=== PATIENT | male | born 1970 | race Caucasian/White ===

== ENCOUNTER 2017-01-20 09:12 | Day surgery (SDC) | payer OTHER ==
[2017-01-20 09:51] VITALS: BMI 35.6
[2017-01-20] MEDS ORDERED: PROPOFOL 20 ML ONE ×2 (10:44)
[2017-01-20] MEDS ORDERED: LIDOCAINE HCL/PF 1% SDV 5ML VIAL ONE (10:44)
[2017-01-20 11:30] VITALS: TEMP 98
[2017-01-20 12:12] VITALS: BP 129/82; PULSE 83
--- NOTE | 2017-01-21 13:32 | PATH ---
Surgical Pathology Report Patient Name: RYDER HERNANDES [facility]. Rec. #: [id number] /Age/Gender: 1970 (Age: 46) / M Account: [id number] Location: [facility]-ENDOSCOPY Taken: 01/20/2017 Received: 01/20/2017 Reported: 01/21/2017 Physicians: Leighton Galindo M.D. Specimen(s) Received A: BX DUODENUM B: BX ANTRUM C: BX BODY Clinical History Persistent GERD despite medications Erythema body and antrum, subepithelial hemorrhages Final Diagnosis A. DUODENUM, BIOPSY: DUODENAL MUCOSA WITH CHRONIC INFLAMMATION. NO HISTOLOGIC EVIDENCE OF GLUTEN SENSITIVE ENTEROPATHY (CELIAC DISEASE). B. STOMACH, ANTRUM, BIOPSY: GASTRIC OXYNTIC MUCOSA WITH FOCALLY ACTIVE MARKED CHRONIC GASTRITIS. IMMUNOSTAINS H. PYLORI IS NEGATIVE FOR ORGANISMS. SEPARATE FRAGMENT OF DUODENAL MUCOSA WITH MILD CHRONIC INFLAMMATION; NO HISTOLOGIC EVIDENCE OF GLUTEN SENSITIVE ENTEROPATHY (CELIAC DISEASE). C. STOMACH, BODY, BIOPSY: GASTRIC OXYNTIC MUCOSA WITH FOCALLY ACTIVE MARKED CHRONIC GASTRITIS. IMMUNOSTAIN FOR H. PYLORI IS NEGATIVE FOR ORGANISMS. Electronically Signed Jay Martin M.D. Gross Description A. Received in formalin, labeled "biopsy duodenum" is a haines, irregular portion of soft tissue measuring 0.5 cm in greatest dimension. The specimen is submitted in toto in one cassette. B. Received in formalin, labeled "biopsy antrum" are 3 haines, irregular portions of soft tissue ranging from 0.2-0.4 cm in greatest dimension. The specimens are submitted in toto in one cassette. C. Received in formalin, labeled "biopsy body" are 2 haines, irregular portions of soft tissue measuring 0.3 and 0.4 cm in greatest dimension. The specimens are submitted in toto in one cassette. /01/20/201701/20/2017
== END 2017-01-20 12:30 | disposition home or self-care (01) ==
LOC: JASU-ENDO 09:12
PROVIDERS: ATTEND Internal Medicine Gastroenterology
PROC: 0DB68ZX Excision of Stomach, Via Natural or Artificial Opening Endoscopic, Diagnostic (ICD-10-PCS; 2017-01-20)
PROC: 0DB98ZX Excision of Duodenum, Via Natural or Artificial Opening Endoscopic, Diagnostic (ICD-10-PCS; principal; 2017-01-20 10:00)
DX: K21.9 Gastro-esophageal reflux disease without esophagitis (principal); K29.80 Duodenitis without bleeding; K29.50 Unspecified chronic gastritis without bleeding
CPT/HCPCS: 88305-TC; 88342-TC

== ENCOUNTER 2017-01-27 08:00 | Day surgery (SDC) | payer OTHER ==
[2017-01-26 14:24] VITALS: BMI 33.9
[2017-01-27] MEDS ORDERED: PROPOFOL 20 ML ONE ×2 (08:25)
[2017-01-27 10:01] VITALS: TEMP 98
[2017-01-27 11:24] VITALS: BP 132/88; PULSE 84
--- NOTE | 2017-01-28 14:52 | PATH ---
Surgical Pathology Report Patient Name: RYDER HERNANDES [facility]. Rec. #: [id number] /Age/Gender: 1970 (Age: 46) / M Account: [id number] Location: [facility]-ENDOSCOPY Taken: 01/27/2017 Received: 01/27/2017 Reported: 01/28/2017 Physicians: Leighton Galindo M.D. Specimen(s) Received BX RECTAL POLYP Clinical History Abdominal pain, constipation Rectal polyps Final Diagnosis RECTUM, BIOPSY: HYPERPLASTIC POLYP WITH FOCAL ULCERATION. Electronically Signed Casimiro Ruby M.D. Gross Description Received in formalin, labeled "biopsy rectal polyp" is a haines, irregular portion of soft tissue measuring 0.4 cm. in greatest dimension. The specimen is submitted in toto in one cassette. 01/27/201701/27/2017
== END 2017-01-27 11:24 | disposition home or self-care (01) ==
LOC: JASU-ENDO 08:00
PROVIDERS: ATTEND Internal Medicine Gastroenterology
PROC: 0DBP8ZX Excision of Rectum, Via Natural or Artificial Opening Endoscopic, Diagnostic (ICD-10-PCS; principal; 2017-01-27 09:00)
DX: K62.1 Rectal polyp (principal); K63.89 Other specified diseases of intestine
CPT/HCPCS: 88305-TC

== ENCOUNTER 2017-05-09 18:17 | Inpatient (IN) | payer OTHER ==
[2017-05-09] MEDS ORDERED: PIPERACILLIN/TAZOB 4.5 GM 4.5 GM in DEXTROSE 5%-WATER - 100 ML IVPB ONE (19:09)
--- NOTE | 2017-05-09 19:31 | PDOC ---
History of Present Illness - General History Source: Patient Exam Limitations: No Limitations <Linda Bailey - Last Filed: 05/09/17 23:57> - General History Source: Patient, Old Records Exam Limitations: No Limitations - History of Present Illness Initial Comments: 05/09/17 19:32 The patient is a 47 year old male with past medical history of hypertension and IDDM who presents to the ED with complaints of worsening right heel wound infection for the past three weeks. The patient states he noticed the wound after driving home from work and went to his PCP in which he was prescribed clindamyacin and cipro which did not help. Over the past week, the patient noticed the wound draining, becoming more swollen, and his right leg is becoming swollen. Yesterday he began developing a fever and noted it to be about 102 this afternoon. Right wound on heel, clind and cipro for about 3 weeks by PCP, fever yesterday, 3:00 today at 102. The patient denies any nausea, vomiting, diarrhea. He denies any cough, shortness of breath or chest pain. He denies any urinary symptoms. Allergies: None Surgical History: Herniated disc surgery Photo Intern: Mk Dean <Ximena Joyce - Last Filed: 05/10/17 00:21> - General Chief Complaint: Wound Stated Complaint: SWOLLEN RT FOOT Time Seen by Provider: 05/09/17 18:46 Past History - Past Medical History Anemia: No Asthma: No Cancer: No Cardiac Disorders: No CVA: No COPD: No CHF: No Dementia: No Diabetes: Yes (INSULIN PUMP) GI Disorders: Yes (GERD) Disorders: Yes (BPH) HTN: Yes Hypercholesterolemia: No Liver Disease: No Seizures: No Thyroid Disease: No - Surgical History Abdominal Surgery: No Appendectomy: No Cardiac Surgery: No Cholecystectomy: No Lung Surgery: No Neurologic Surgery: Yes (LOWER BACK FOR HERNIATED DISC) Orthopedic Surgery: No - Immunization History Td Vaccination: Yes TDAP Vaccination: Yes Immunization Up to Date: Yes - Psycho/Social/Smoking Cessation Hx Anxiety: No Suicidal Ideation: No Smoking Status: No Smoking History: Never smoked Have you smoked in the past 12 months: No Number of Cigarettes Smoked Daily: 2 If you are a former smoker, when did you quit?: 14 yrs ago Hx Alcohol Use: No Drug/Substance Use Hx: No Substance Use Type: None Hx Substance Use Treatment: No <Linda Bailey - Last Filed: 05/09/17 23:57> <AngelclaireXimena - Last Filed: 05/10/17 00:21> - Past Medical History Allergies/Adverse Reactions: Allergies Allergy/AdvReac Type Severity Reaction Status Date / Time No Known Allergies Allergy Verified 05/09/17 18:19 Home Medications: Ambulatory Orders Insulin Pump Cartridge [Cartridge] 1 each SCJ ASDIR 03/30/13 Folic Acid 1 mg PO HS 08/20/16 Linaclotide [Linzess] 145 mcg PO DAILY 01/26/17 Losartan/Hydrochlorothiazide [Losartan-Hctz 100-12.5 mg Tab] 1 each PO DAILY ASA - 81 mg PO DAILY 05/04/17 Amlodipine Besylate 10 mg PO DAILY 05/04/17 Ciprofloxacin 500 mg PO DAILY 05/04/17 Clindamycin 300 mg PO DAILY 05/04/17 Dulaglutide [Trulicity] 0.75 mg SQ WEEKLY 05/09/17 Review of Systems - Review of Systems Able to Perform ROS?: Yes Comments:: 05/09/17 19:32 GENERAL/CONSTITUTIONAL: Present: fever, chills No weakness. HEAD, EYES, EARS, NOSE AND THROAT: No change in vision. No ear pain or discharge. No sore throat. CARDIOVASCULAR: No chest pain or shortness of breath. RESPIRATORY: No cough, wheezing, or hemoptysis. GASTROINTESTINAL: No nausea, vomiting, diarrhea or constipation. GENITOURINARY: No dysuria, frequency, or change in urination. MUSCULOSKELETAL: No joint or muscle swelling or pain. No neck or back pain. SKIN: Right heel wound infection, right heel pain. No rash NEUROLOGIC: No headache, vertigo, loss of consciousness, or change in strength/ sensation. ENDOCRINE: No increased thirst. No abnormal weight change. HEMATOLOGIC/LYMPHATIC: No anemia, easy bleeding, or history of blood clots. ALLERGIC/IMMUNOLOGIC: No hives or skin allergy. All Other Systems: Reviewed and Negative <Ximena Joyce - Last Filed: 05/10/17 00:21> *Physical Exam - Vital Signs Last Vital Signs Temp Pulse Resp BP Pulse Ox 99.6 F 126 H 20 108/62 97 05/09/17 18:20 05/09/17 18:20 05/09/17 18:20 05/09/17 18:20 05/09/17 18:20 <Linda Bailey - Last Filed: 05/09/17 23:57> - Vital Signs Last Vital Signs Temp Pulse Resp BP Pulse Ox 99.6 F 126 H 20 108/62 97 05/09/17 18:20 05/09/17 18:20 05/09/17 18:20 05/09/17 18:20 05/09/17 18:20 - Physical Exam Comments: 05/09/17 19:33 GENERAL: Awake, alert, and fully oriented, in no acute distress HEAD: No signs of trauma EYES: PERRLA, EOMI, sclera anicteric, conjunctiva clear ENT: Auricles normal inspection, hearing grossly normal, nares patent, oropharynx clear without exudates. Moist mucosa NECK: Normal ROM, supple, no lymphadenopathy, JVD, or masses LUNGS: Breath sounds equal, clear to auscultation bilaterally. No wheezes, and no crackles HEART: Regular rate and rhythm, normal S1 and S2, no murmurs, rubs or gallops ABDOMEN: Soft, nontender, normoactive bowel sounds. No guarding, no rebound. No masses EXTREMITIES: Right foot and leg swollen, edematous 2.5 x 2.5 punch ulcer under 3rd and 4th metatarsal heads on plantar surface, surrounding callous, no erythema, 2+ dp pulse, 6 x 5 cm deep ulcer with visualized muscle, with drainage. No bone visualized. No clubbing or cyanosis. NEUROLOGICAL: Cranial nerves II through XII grossly intact. Normal speech, normal gait SKIN: Warm, Dry, normal turgor, no rashes or lesions noted. <Ximena Joyce - Last Filed: 05/10/17 00:21> Heart Score/ECG Review #1 ECG reviewed & interpreted by me at: 22:18 General ECG Interpretation: Sinus Rhythm, Normal Rate, Normal Intervals, No acute ischemic changes <Linda Bailey - Last Filed: 05/09/17 23:57> ED Treatment Course - LABORATORY CBC & Chemistry Diagram: 05/09/17 19:30 05/09/17 20:51 - RADIOLOGY Radiology Studies Ordered: Category Date Time Status CHEST - PA [RAD] Stat Radiology 05/09/17 19:07 Ordered FOOT-RIGHT [RAD] Stat Radiology 05/09/17 19:07 Ordered <Linda Bailey - Last Filed: 05/09/17 23:57> - LABORATORY CBC & Chemistry Diagram: 05/09/17 19:30 05/09/17 20:51 <Ximena Joyce - Last Filed: 05/10/17 00:21> Medical Decision Making - Medical Decision Making 05/09/17 19:31 A portion of this note was documented by scribe services under my direction. I have reviewed the details of the note, within reason, and agree with the documentation with the following case summary and management plan written by me. Nursing documentation reviewed and incorporated into medical decision making 05/09/17 21:46 This patient is a 47-year-old male with a history of insulin-dependent diabetes complicated by peripheral neuropathy, hypertension, prior history of diabetic foot ulcers who presents to the emergency department with a complaint of worsening right heel ulcer. Patient states his symptoms began as a small heel ulcer for which he saw Dr. Dean. He has had persistent pain He was started on Clindamycin and Cipro which he has been taking for approximately 2 weeks He has noted no improvement in his wounds, no improvement in his pain Pt has noted drainage which has worsened He has noted right lower extremity swelling fever last night - 102 On examination: RLE edematous heel ulcer Ulcer plantar surface No surrounding erythema No erythema up the leg DD: Ulcer, osteomyelitis, ulcer Laboratory Tests 04/13/17 04/13/17 05/09/17 06:45 06:45 19:30 WBC 9.6 14.4 H D Hgb 12.2 11.1 L Hct 33.5 L Plt Count 253 319 D Chloride Carbon Dioxide Anion Gap BUN 37 H Creatinine 2.1 H Random Glucose 176 H 05/09/17 20:51 WBC Hgb Hct Plt Count Chloride 102 Carbon Dioxide 23 Anion Gap 11 BUN 37 H Creatinine 2.5 H Random Glucose 162 H 05/09/17 21:54 Given morphine for pain Case reviewed with Dr Marinelli Will admit to Dr Tovar's service Pending: RLE duplex 05/09/17 23:57 Duplex negative for DVT <Linda Bailey - Last Filed: 05/09/17 23:57> - Medical Decision Making 05/10/17 00:20 EXAM: Venous duplex unilateral, right lower extremity IMPRESSION: No DVT. SIGNED Juan Carlos Young MD <Ximena Joyce - Last Filed: 05/10/17 00:21> *DC/Admit/Observation/Transfer - Discharge Dispostion Admit: Yes <Linda Bailey - Last Filed: 05/09/17 23:57> - Attestations Scribe Attestion: 05/09/17 19:35 Documentation prepared by Ximena Joyce, acting as biomedical scientist for Linda Bailey MD. <Ximena Joyce - Last Filed: 05/10/17 00:21> Diagnosis at time of Disposition: Diabetic foot ulcer Qualifiers: Diabetic foot ulcer location: heel Diabetes mellitus type: type 1 Laterality: right Non-pressure ulcer stage: with fat layer exposed Qualified Code(s): E10.621 - Type 1 diabetes mellitus with foot ulcer - Discharge Dispostion Condition at time of disposition: Stable - Referrals
[2017-05-09] MEDS ORDERED: PIPERACILLIN/TAZOB 4.5 GM 100 ML IVPB ONE (19:38)
[2017-05-09] MEDS ORDERED: VANCOMYCIN 1 GRAM (PRE-DOCKED) 250 ML IVPB ONE (19:38)
[2017-05-09] MEDS ORDERED: morphine CARPU-JECT 4 MG/1 ML DISP.SYRIN ONE (19:40)
[2017-05-09] MEDS ORDERED: morphine CARPU-JECT 4 MG/1 ML DISP.SYRIN IVPUSH ONE (19:40)
[2017-05-09 19:45] LABS: BASOPHIL 0.4 % (0-2.0); MCH 27.4 pg (25.7-33.7); MCHC 33.1 g/dl (32.0-35.9); MEAN CELL VOLUME 82.8 fl (80-96); MEAN PLT VOLUME 8.9 fl (7.5-11.1); NEUTROPHILS 75.1 % (42.8-82.8); PLATELET COUNT 319 K/MM3 (134-434); RDW 12.5 % (11.9-15.9); WHITE BLOOD COUNT 14.4 K/mm3 (4.0-10.0)
[2017-05-09] MEDS ORDERED: VANCOMYCIN 1,500 MG in DEXTROSE 5%-WATER - 500 ML IVPB ONE (20:45)
[2017-05-09 21:27] LABS: ALBUMIN 2.7 g/dl (3.4-5.0); BILIRUBIN,TOTAL 0.4 mg/dL (0.2-1.0); CALCIUM 8.4 mg/dL (8.5-10.1); COCKROFT - GAULT 57.4; CREATININE 2.5 mg/dL (0.7-1.3); TOT PROT 7.7 g/dl (6.4-8.2)
[2017-05-09] MEDS ORDERED: oxyCODONE HCL 5 MG TABLET PO PRN (21:58)
[2017-05-09] MEDS ORDERED: DOCUSATE SODIUM 100 MG CAPSULE (FP) PO PRN (21:58)
[2017-05-09] MEDS ORDERED: HEPARIN NA (PORCINE) 5,000 UNITS/ML 1ML VIAL ONE (22:35)
[2017-05-09] MEDS ORDERED: INSULIN DETEMIR 100 UNITS/ML MDV SQ ONE (22:36)
[2017-05-09] MEDS: HEPARIN NA (PORCINE) 5,000 UNITS/ML 1ML VIAL SQ SCH (22:45)
[2017-05-09] MEDS: INSULIN SLIDING SCALE (NOVOLOG) 1 VIAL SQ SCH (22:48)
[2017-05-09] MEDS: INSULIN DETEMIR 100 UNITS/ML MDV SQ SCH (22:56)
[2017-05-09] MEDS ORDERED: ACETAMINOPHEN 325 MG TABLET (FP) ONE (23:27)
[2017-05-09] MEDS: ACETAMINOPHEN 325 MG TABLET (FP) PO PRN (23:40)
[2017-05-10 01:40] VITALS: BMI 35.3
[2017-05-10] MEDS: INSULIN SLIDING SCALE (NOVOLOG) 1 VIAL SQ SCH ×4 (06:42→22:09)
[2017-05-10] MEDS: LOSARTAN POTASSIUM 50 MG TABLET (FP) PO SCH (09:27)
[2017-05-10] MEDS: amLODIPine BESYLATE 10 MG TABLET (FP) PO SCH (09:27)
[2017-05-10] MEDS: HEPARIN NA (PORCINE) 5,000 UNITS/ML 1ML VIAL SQ SCH ×2 (09:27→22:03)
[2017-05-10] MEDS: ASPIRIN COATED 81 MG TABLET.EC PO SCH (09:27)
[2017-05-10] MEDS ORDERED: morphine CARPU-JECT 4 MG/1 ML DISP.SYRIN IVPUSH ONE (11:30)
--- NOTE | 2017-05-10 11:42 | HP ---
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 Cardiovascular: Yes: HTN Infectious Disease: Yes: Other Endocrine: Yes: Diabetes Mellitus - Smoking History Smoking history: Never smoked Have you smoked in the past 12 months: No Aproximately how many cigarettes per day: 2 If you are a former smoker, when did you quit?: 14 yrs ago - Alcohol/Substance Use Hx Alcohol Use: No History of Substance Use: reports: None - Social History ADL: Independent 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 History of Recent Travel: No Home Medications - Allergies Allergies/Adverse Reactions: Allergies Allergy/AdvReac Type Severity Reaction Status Date / Time No Known Allergies Allergy Verified 05/09/17 18:19 - Home Medications Home Medications: Ambulatory Orders Insulin Pump Cartridge [Cartridge] 1 each SCJ ASDIR 03/30/13 Folic Acid 1 mg PO HS 08/20/16 Linaclotide [Linzess] 145 mcg PO DAILY 01/26/17 Losartan/Hydrochlorothiazide [Losartan-Hctz 100-12.5 mg Tab] 1 each PO DAILY ASA - 81 mg PO DAILY 05/04/17 Amlodipine Besylate 10 mg PO DAILY 05/04/17 Ciprofloxacin 500 mg PO DAILY 05/04/17 Clindamycin 300 mg PO DAILY 05/04/17 Dulaglutide [Trulicity] 0.75 mg SQ WEEKLY 05/09/17 Review of Systems - Review of Systems Constitutional: reports: No Symptoms Eyes: reports: No Symptoms HENT: reports: No Symptoms Neck: reports: No Symptoms Cardiovascular: reports: No Symptoms Respiratory: reports: No Symptoms Gastrointestinal: reports: No Symptoms Genitourinary: reports: No Symptoms Musculoskeletal: reports: Joint Swelling Integumentary: reports: Blister, Erythema, Other Neurological: reports: Pre-Existing Deficit Endocrine: reports: No Symptoms Physical Examination Vital Signs: Vital Signs Temperature 98.2 F 05/10/17 09:38 Pulse Rate 74 05/10/17 09:38 Respiratory Rate 20 05/10/17 09:38 Blood Pressure 136/87 05/10/17 09:38 O2 Sat by Pulse Oximetry (%) 97 05/09/17 22:28 Findings/Remarks: C/O PAIN Constitutional: Yes: Mild Distress Eyes: Yes: WNL HENT: Yes: WNL Neck: Yes: WNL Cardiovascular: Yes: WNL Respiratory: Yes: WNL Gastrointestinal: Yes: WNL Renal/: Yes: WNL Musculoskeletal: Yes: Muscle Pain Extremities: Yes: Deformity Edema: No Peripheral Pulses WNL: Yes Integumentary: Yes: Pressure Ulcer, Skin Tear, Venous Stasis Changes Wound/Incision: Yes: Dressing Dry and Intact, Unapproximated Neurological: Yes: Pre-Existing Deficit ...Motor Strength: LLE, RLE Psychiatric: Yes: Other Problem List - Problems (1) Diabetic foot ulcer Code(s): E11.621 - TYPE 2 DIABETES MELLITUS WITH FOOT ULCER L97.509 - NON-PRESSURE CHRONIC ULCER OTH PRT UNSP FOOT W UNSP SEVERITY Qualifiers: Diabetic foot ulcer location: heel Diabetes mellitus type: type 1 Laterality: right Non-pressure ulcer stage: with fat layer exposed Qualified Code(s): E10.621 - Type 1 diabetes mellitus with foot ulcer; L97.411 - Non-pressure chronic ulcer of right heel and midfoot limited to breakdown of skin (2) Cellulitis of foot Code(s): L03.119 - CELLULITIS OF UNSPECIFIED PART OF LIMB (3) Diabetes Code(s): E11.9 - TYPE 2 DIABETES MELLITUS WITHOUT COMPLICATIONS Qualifiers: Diabetes mellitus type: type 2 Diabetes mellitus complication detail: with unspecified neuropathy Qualified Code(s): - (4) Diabetes mellitus, insulin dependent (IDDM), uncontrolled Code(s): E10.65 - TYPE 1 DIABETES MELLITUS WITH HYPERGLYCEMIA Qualifiers: Diabetes mellitus complication detail: with foot ulcer (5) Diabetic foot infection Code(s): E11.69 - TYPE 2 DIABETES MELLITUS WITH OTHER SPECIFIED COMPLICATION L08.9 - LOCAL INFECTION OF THE SKIN AND SUBCUTANEOUS TISSUE, UNSP (6) Foot ulcer Code(s): L97.509 - NON-PRESSURE CHRONIC ULCER OTH PRT UNSP FOOT W UNSP SEVERITY (7) Hypertension Code(s): I10 - ESSENTIAL (PRIMARY) HYPERTENSION Qualifiers: Hypertension type: essential hypertension Qualified Code(s): I10 - Essential (primary) hypertension (8) Renal insufficiency Code(s): N28.9 - DISORDER OF KIDNEY AND URETER, UNSPECIFIED Assessment/Plan IV ABX ID AND VASC EVAL PAIN CONTROL DVT PROPHYLAXIS SNF
--- NOTE | 2017-05-10 11:59 | PN ---
Progress Note (short form) - Note Progress Note: ID consult dictated 47 year old man with diabetes admitted with fever and worsening heel ulcer right foot ulcer started about three weeks ago saw his civil service worker (Dr Morales) and has been on cipro/clinda for last three weeks he noted on that the ulcer was draining and foulsmelling yesterday he developed fever to 102 at home, the leg became swollen, he noted painful inguinal adenopathy fever diabetic foot ulcer r/o osteomyelitis leanne/ckd foot MRI- r/o osteomyelitis received vancomycin and zosyn in ed will check vanco level in am and redose based on level continue zosyn podiatry/surgery consult for debridement Problem List - Problems (1) Diabetic infection of right foot Code(s): E11.69 - TYPE 2 DIABETES MELLITUS WITH OTHER SPECIFIED COMPLICATION L08.9 - LOCAL INFECTION OF THE SKIN AND SUBCUTANEOUS TISSUE, UNSP (2) Osteomyelitis Code(s): M86.9 - OSTEOMYELITIS, UNSPECIFIED (3) Renal insufficiency Code(s): N28.9 - DISORDER OF KIDNEY AND URETER, UNSPECIFIED
[2017-05-10] MEDS: PIPERACILLIN/TAZOB 3.375 GM/50 ML PRE-DOCKED IVPB SCH ×2 (14:02→18:53)
--- NOTE | 2017-05-10 15:16 | CONS ---
DATE OF CONSULTATION: DATE OF DICTATION: 05/10/2017 REFERRED BY: Daphnie Tovar MD This is a 47-year-old man with a 15-year history of diabetes. He is followed by Dr. Dean. Three weeks ago he developed an ulcer on the heel of his foot. He went to see his seater assembler, Dr. Morales. He was given collagenase to put on the wound and was started on Cipro and clindamycin, which he has been taking b.i.d. for the last 3 weeks. On , he noted that the ulcer was now malodorous and draining. He started having swelling of his right leg and painful inguinal adenopathy, all on the right side. Yesterday he had fever at home to 102. He did not have any rigors or chills, and he presented to the emergency room. He denies nausea, vomiting, diarrhea, dysuria. He has no chest pain or abdominal pain. He has no respiratory complaints. His past medical history is notable for a history of diabetes for 15 years. He has a history of hypertension. He has a history of BPH and GERD. He denies history of coronary artery disease. He has had lower back surgery for herniated disks. He has a history of osteomyelitis of the right 1st toe and was treated in 2015 with Rocephin for 6 weeks via PICC line. Family history is noncontributory. SOCIAL HISTORY: He is currently not working, and he lives in the community. There is no history of any recent travel. REVIEW OF SYSTEMS: As per HPI. He denies everything except painful inguinal adenopathy, swelling of his right leg, and fever yesterday, as well as draining ulcer. PHYSICAL EXAMINATION: Vital Signs: His temperature at home was 102. Here, his temperature was 99.6. Currently his temperature is 98.2, with a pulse of 74, blood pressure 136/87, respiratory rate is 20. Weight 260 pounds. HEENT: Normocephalic. His eyes are anicteric. Neck: Supple. Lungs: Clear to auscultation. Heart: Regular rate and rhythm. Abdomen: He has a large right painful inguinal node, very tender to touch Extremities: He has swelling of the right lower extremity. He has a malodorous ulcer on the right leg. There is drainage on the dressing but there is no drainage to culture. There is no surrounding erythema. He has another ulcer on the plantar aspect of his foot, which is very clean based. His laboratories are notable for BUN 37, creatinine 2.5. Hemoglobin A1c of 8.8, CRP is 9. His sedimentation rate is 108. His white count is 14.4. X-ray of the foot shows no signs of osteomyelitis. Chest x-ray is clear. Duplex of the leg is pending. In summary, this is a 47-year-old man with fever, infected diabetic foot ulcer, as well as possible osteomyelitis in the setting of acute kidney injury, probable CKD, and diabetes. Would obtain a foot MRI to rule out osteomyelitis. He received Zosyn and vancomycin in the emergency room. Will check a vancomycin level and re-dose based on the level. Continue Zosyn, adjusted for his renal insufficiency. Would recommend podiatry or surgery consultation for debridement. Further recommendations to follow. AVIS VAIL M.D. [id number]
--- NOTE | 2017-05-10 15:35 | EKG ---
Test Reason : Blood Pressure : / mmHG Vent. Rate : 098 BPM Atrial Rate : 098 BPM P-R Int : 188 ms QRS Dur : 074 ms QT Int : 320 ms P-R-T Axes : 029 007 018 degrees QTc Int : 408 ms NORMAL SINUS RHYTHM NORMAL ECG WHEN COMPARED WITH ECG OF 09-MAY-2015 20:06, NO SIGNIFICANT CHANGE WAS FOUND Confirmed by DENNIS GALVIN MD ([id number]) on 05/10/2017 3:34:37 PM Referred By: Confirmed By:DENNIS GALVIN MD
[2017-05-10] MEDS: ACETAMINOPHEN 325 MG TABLET (FP) PO PRN (16:43)
--- NOTE | 2017-05-10 18:26 | CONSULT ---
Consult Consult Specialty:: Nephrology Reason for Consultation:: DEYSI - History of Present Illness Chief Complaint: worsening right heel wound infection History of Present Illness: Pt is a 47 year old male with pmhx of DM and HTN who presents to the ER complaining of worsening of his right heel wound infections. He says that he felt is has been getting worse over the last few weeks. He was given antibiotics as outpt however they did not help. He too ciprofloxacin and clindamycin. He did have fever and complains of right leg edema. He was found to have elevated creatinine in the ER and I was called to evaluate him. He denies history of CKD. He does however have abnormal creatinine values on prior labs in the system. He denies dysuria or hematuria. He denies nsaid use. He denies shortness of breath. 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 History of Recent Travel: No Home Medications - Allergies Allergies/Adverse Reactions: Allergies Allergy/AdvReac Type Severity Reaction Status Date / Time No Known Allergies Allergy Verified 05/09/17 18:19 - Home Medications Home Medications: Ambulatory Orders Insulin Pump Cartridge [Cartridge] 1 each CTJ ASDIR 03/30/13 Folic Acid 1 mg PO HS 08/20/16 Linaclotide [Linzess] 145 mcg PO DAILY 01/26/17 Losartan/Hydrochlorothiazide [Losartan-Hctz 100-12.5 mg Tab] 1 each PO DAILY ASA - 81 mg PO DAILY 05/04/17 Amlodipine Besylate 10 mg PO DAILY 05/04/17 Ciprofloxacin 500 mg PO DAILY 05/04/17 Clindamycin 300 mg PO DAILY 05/04/17 Dulaglutide [Trulicity] 0.75 mg SQ WEEKLY 05/09/17 Family Disease History - Family Disease History Family History: Denies Review of Systems - Review of Systems Constitutional: reports: Fever, Malaise Eyes: reports: No Symptoms HENT: reports: No Symptoms Neck: reports: No Symptoms Cardiovascular: reports: No Symptoms Respiratory: reports: No Symptoms Gastrointestinal: reports: No Symptoms Genitourinary: reports: No Symptoms Musculoskeletal: reports: Other (right leg and foot pain) Neurological: reports: No Symptoms Endocrine: reports: No Symptoms Hematology/Lymphatic: reports: No Symptoms Psychiatric: reports: No Symptoms Physical Exam Vital Signs: Vital Signs Temperature 98.2 F 05/10/17 15:16 Pulse Rate 96 H 05/10/17 15:16 Respiratory Rate 20 05/10/17 15:16 Blood Pressure 143/91 05/10/17 15:16 O2 Sat by Pulse Oximetry (%) 97 05/09/17 22:28 Constitutional: Yes: Calm Eyes: Yes: Conjunctiva Clear HENT: Yes: Atraumatic Cardiovascular: Yes: S1, S2 Respiratory: Yes: CTA Bilaterally Gastrointestinal: Yes: Soft Renal/: Yes: WNL. No: CVA Tenderness - Left, CVA Tenderness - Right Extremities: Yes: Other (right foot heel ulcer) Edema: Yes Edema: RLE: 1+ Wound/Incision: Yes: Dressing Dry and Intact Neurological: Yes: Oriented Psychiatric: Yes: Oriented Labs: Laboratory Tests 12/11/15 01/28/16 02/08/16 11:50 07:20 06:35 WBC Hgb Plt Count Sodium Potassium Chloride Carbon Dioxide Anion Gap BUN Creatinine 1.5 H 1.7 H 1.7 H 02/21/16 08/24/16 12/29/16 07:43 06:00 06:30 WBC Hgb Plt Count Sodium Potassium Chloride Carbon Dioxide Anion Gap BUN Creatinine 1.8 H 1.8 H 2.1 H 04/13/17 05/09/17 05/09/17 06:45 19:30 20:51 WBC 14.4 H D Hgb 11.1 L Plt Count 319 D Sodium 136 Potassium 4.2 Chloride 102 Carbon Dioxide 23 Anion Gap 11 BUN 37 H Creatinine 2.1 H 2.5 H Imaging - Results Chest X-ray: Report Reviewed Ultrasound: Report Reviewed Problem List - Problems (1) Diabetic foot ulcer Code(s): E11.621 - TYPE 2 DIABETES MELLITUS WITH FOOT ULCER L97.509 - NON-PRESSURE CHRONIC ULCER OTH PRT UNSP FOOT W UNSP SEVERITY Qualifiers: Diabetic foot ulcer location: heel Diabetes mellitus type: type 1 Laterality: right Non-pressure ulcer stage: with fat layer exposed Qualified Code(s): E10.621 - Type 1 diabetes mellitus with foot ulcer; L97.411 - Non-pressure chronic ulcer of right heel and midfoot limited to breakdown of skin (2) Cellulitis of foot Code(s): L03.119 - CELLULITIS OF UNSPECIFIED PART OF LIMB (3) Lymphadenopathy Code(s): R59.1 - GENERALIZED ENLARGED LYMPH NODES (4) Renal insufficiency Code(s): N28.9 - DISORDER OF KIDNEY AND URETER, UNSPECIFIED Assessment/Plan Current Medications Generic Name Dose Route Start Last Admin Trade Name Freq PRN Reason Stop Dose Admin Acetaminophen 650 mg 05/09/17 21:58 05/10/17 16:43 Tylenol - PO 650 mg Q6H PRN Administration FEVER OR PAIN Amlodipine Besylate 10 mg 05/10/17 10:00 05/10/17 09:27 Norvasc - PO 10 mg DAILY [place] Administration Aspirin 81 mg 05/10/17 10:00 05/10/17 09:27 Ecotrin - PO 81 mg DAILY [place] Administration Docusate Sodium 100 mg 05/09/17 21:58 Colace - PO Q8H PRN CONSTIPATION Heparin Sodium (Porcine) 5,000 unit 05/09/17 22:00 05/10/17 09:27 Heparin - SQ 5,000 unit BID [place] Administration Insulin Aspart 1 vial 05/09/17 22:00 05/10/17 16:56 Novolog Vial Sliding Scale - SQ 4 unit ACHS [place] Administration Protocol Insulin Detemir 20 units 05/09/17 22:00 05/09/17 22:56 Levemir Vial SQ Not Given HS [place] Losartan Potassium 50 mg 05/10/17 10:00 05/10/17 09:27 Cozaar - PO 50 mg DAILY [place] Administration Morphine Sulfate 4 mg 05/10/17 11:42 Morphine Injection - IVPUSH Q6H PRN PAIN Oxycodone HCl 5 mg 05/09/17 21:58 Roxicodone - PO Q6H PRN PAIN Piperacillin Sod/Tazobactam Sod 3.375 gm 05/10/17 12:15 05/10/17 14:02 Zosyn 3.375gm Ivpb (Pre-Docked) IVPB 3.375 gm Q8H-IV [place] Administration Protocol Impression 1. CKD 2. Inguinal lymphadenopathy 3. DEYSI 4. DM 5. HTN 6. 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
[2017-05-10] MEDS: SODIUM CHLORIDE 1,000 ML IV SCH (18:53)
[2017-05-10 19:59] LABS: CALCIUM 8.1 mg/dL (8.5-10.1); COCKROFT - GAULT 69.42; CREATININE 2.2 mg/dL (0.7-1.3)
--- NOTE | 2017-05-10 20:48 | CONSULT ---
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 History of Recent Travel: No Home Medications - Allergies Allergies/Adverse Reactions: Allergies Allergy/AdvReac Type Severity Reaction Status Date / Time No Known Allergies Allergy Verified 05/09/17 18:19 - Home Medications Home Medications: Ambulatory Orders Insulin Pump Cartridge [Cartridge] 1 each SCJ ASDIR 03/30/13 Folic Acid 1 mg PO HS 08/20/16 Linaclotide [Linzess] 145 mcg PO DAILY 01/26/17 Losartan/Hydrochlorothiazide [Losartan-Hctz 100-12.5 mg Tab] 1 each PO DAILY ASA - 81 mg PO DAILY 05/04/17 Amlodipine Besylate 10 mg PO DAILY 05/04/17 Ciprofloxacin 500 mg PO DAILY 05/04/17 Clindamycin 300 mg PO DAILY 05/04/17 Dulaglutide [Trulicity] 0.75 mg SQ WEEKLY 05/09/17 Physical Exam Vital Signs: Vital Signs Temperature 98.5 F 05/10/17 18:37 Pulse Rate 98 H 05/10/17 18:37 Respiratory Rate 20 05/10/17 18:37 Blood Pressure 143/87 05/10/17 18:37 O2 Sat by Pulse Oximetry (%) 92 L 05/10/17 09:00 Labs: CBC, BMP 05/10/17 18:45 Assessment/Plan Vascular Surgery The patient is a 47 year old male with past medical history of hypertension and IDDM who presents to the ED with complaints of worsening right heel wound infection for the past three weeks. The patient states he noticed the wound after driving home from work and went to his PCP in which he was prescribed clindamyacin and cipro which did not help. Over the past week, the patient noticed the wound draining, becoming more swollen, and his right leg is becoming swollen. Yesterday he began developing a fever and noted it to be about 102 this afternoon. Right wound on heel, clind and cipro for about 3 weeks by PCP, fever yesterday, 3:00 today at 102. The patient denies any nausea, vomiting, diarrhea. He denies any cough, shortness of breath or chest pain. He denies any urinary symptoms. 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 warm to touch. Palpable pulses. 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 His ulcers don't get better due to his work load, and driving with the right foot. Start santyl to right foot ulcers. Recc MRI of right foot to rule out osteo of the right heel . Pierre Thompson DO
--- NOTE | 2017-05-10 20:50 | PN ---
Progress Note (short form) - Note Progress Note: Laboratory Tests 05/10/17 18:45 Sodium 134 L Potassium 4.3 Chloride 99 Carbon Dioxide 26 Anion Gap 9 BUN 33 H Creatinine 2.2 H Random Glucose 211 H D Renal Addendum Followed up on repeat labs. renal function is improving. Cont with saline and repeat bmp in am. Discussed with nurse. Problem List - Problems (1) Diabetic foot ulcer Code(s): E11.621 - TYPE 2 DIABETES MELLITUS WITH FOOT ULCER L97.509 - NON-PRESSURE CHRONIC ULCER OTH PRT UNSP FOOT W UNSP SEVERITY Qualifiers: Diabetic foot ulcer location: heel Diabetes mellitus type: type 1 Laterality: right Non-pressure ulcer stage: with fat layer exposed Qualified Code(s): E10.621 - Type 1 diabetes mellitus with foot ulcer; L97.411 - Non-pressure chronic ulcer of right heel and midfoot limited to breakdown of skin (2) Cellulitis of foot Code(s): L03.119 - CELLULITIS OF UNSPECIFIED PART OF LIMB (3) Lymphadenopathy Code(s): R59.1 - GENERALIZED ENLARGED LYMPH NODES (4) Renal insufficiency Code(s): N28.9 - DISORDER OF KIDNEY AND URETER, UNSPECIFIED
[2017-05-10] MEDS ORDERED: INSULIN (NOVOLOG) ASPART 100 UNITS/ML 10ML VIAL ONE (21:51)
[2017-05-10] MEDS: COLLAGENASE CLOSTRIDIUM HIST. 30 GRAMS TUBE TP SCH (22:00)
[2017-05-10] MEDS: INSULIN DETEMIR 100 UNITS/ML MDV SQ SCH (22:09)
--- NOTE | 2017-05-10 22:43 | CONSULT ---
Consult Consult Specialty:: endocrine Reason for Consultation:: iddm uncontrolled - History of Present Illness Chief Complaint: high blood sugars History of Present Illness: 47 year old male with past medical history of hypertension and IDDM who presents to the ED with complaints of worsening right heel wound infection for the past three weeks. The patient states he noticed the wound after driving home from work and went to his PCP in which he was prescribed clindamyacin and cipro which did not help. Over the past week, the patient noticed the wound draining, becoming more swollen, and his right leg is becoming swollen. Yesterday he began developing a fever and worsening foot infection,higher blood sugars,despite taking antibiotics for several days. 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 History of Recent Travel: No Home Medications - Allergies Allergies/Adverse Reactions: Allergies Allergy/AdvReac Type Severity Reaction Status Date / Time No Known Allergies Allergy Verified 05/09/17 18:19 - Home Medications Home Medications: Ambulatory Orders Insulin Pump Cartridge [Cartridge] 1 each SCJ ASDIR 03/30/13 Folic Acid 1 mg PO HS 08/20/16 Linaclotide [Linzess] 145 mcg PO DAILY 01/26/17 Losartan/Hydrochlorothiazide [Losartan-Hctz 100-12.5 mg Tab] 1 each PO DAILY ASA - 81 mg PO DAILY 05/04/17 Amlodipine Besylate 10 mg PO DAILY 05/04/17 Ciprofloxacin 500 mg PO DAILY 05/04/17 Clindamycin 300 mg PO DAILY 05/04/17 Dulaglutide [Trulicity] 0.75 mg SQ WEEKLY 05/09/17 Review of Systems - Review of Systems Constitutional: reports: Loss of Appetite Eyes: reports: No Symptoms HENT: reports: No Symptoms Neck: reports: No Symptoms Cardiovascular: reports: No Symptoms Respiratory: reports: No Symptoms Gastrointestinal: reports: No Symptoms Genitourinary: reports: No Symptoms Musculoskeletal: reports: Joint Pain, Joint Swelling, Muscle Pain, Muscle Cramps , Muscle Weakness Integumentary: reports: No Symptoms Neurological: reports: Numbness, Weakness Endocrine: reports: Unexplained Weight Gain Physical Exam Vital Signs: Vital Signs Temperature 99.7 F H 05/10/17 22:13 Pulse Rate 99 H 05/10/17 22:13 Respiratory Rate 18 05/10/17 22:13 Blood Pressure 145/88 05/10/17 22:13 O2 Sat by Pulse Oximetry (%) 92 L 05/10/17 09:00 Constitutional: Yes: Anxious Eyes: Yes: EOM Intact HENT: Yes: Normocephalic Neck: Yes: Trachea Midline Cardiovascular: Yes: Regular Rate and Rhythm Respiratory: Yes: CTA Bilaterally Gastrointestinal: Yes: Normal Bowel Sounds ...Rectal Exam: Yes: Deferred Renal/: Yes: WNL Breast(s): Yes: WNL Musculoskeletal: Yes: WNL, Muscle Weakness Extremities: Yes: WNL Edema: Yes Peripheral Pulses WNL: Yes Wound/Incision: Yes: Draining Neurological: Yes: Alert, Oriented ...Motor Strength: WNL Psychiatric: Yes: Alert, Oriented Labs: CBC, BMP 05/10/17 18:45 Problem List - Problems (1) Diabetic foot ulcer Code(s): E11.621 - TYPE 2 DIABETES MELLITUS WITH FOOT ULCER L97.509 - NON-PRESSURE CHRONIC ULCER OTH PRT UNSP FOOT W UNSP SEVERITY Qualifiers: Diabetic foot ulcer location: heel Diabetes mellitus type: type 1 Laterality: right Non-pressure ulcer stage: with fat layer exposed Qualified Code(s): E10.621 - Type 1 diabetes mellitus with foot ulcer; L97.411 - Non-pressure chronic ulcer of right heel and midfoot limited to breakdown of skin (2) Diabetic infection of right foot Code(s): E11.69 - TYPE 2 DIABETES MELLITUS WITH OTHER SPECIFIED COMPLICATION L08.9 - LOCAL INFECTION OF THE SKIN AND SUBCUTANEOUS TISSUE, UNSP (3) Osteomyelitis Code(s): M86.9 - OSTEOMYELITIS, UNSPECIFIED (4) Cellulitis of foot Code(s): L03.119 - CELLULITIS OF UNSPECIFIED PART OF LIMB (5) Diabetes mellitus, insulin dependent (IDDM), uncontrolled Code(s): E10.65 - TYPE 1 DIABETES MELLITUS WITH HYPERGLYCEMIA Qualifiers: Diabetes mellitus complication detail: with foot ulcer Assessment/Plan Current Active Problems Diabetic foot ulcer (Acute) Diabetic infection of right foot (Acute) Osteomyelitis (Acute) iddm uncontrolled hyperglycemia insulin pump use diabetic neuropathy htn ckd hyperlipidemia Abnormal Lab Results 05/10/17 05/10/17 05/10/17 00:28 00:28 07:25 ESR 108 H Sodium BUN Creatinine Random Glucose Hemoglobin A1c % 8.8 H D Calcium C-Reactive Protein 9.0 H D Total LDL Cholesterol 102 H 05/10/17 18:45 ESR Sodium 134 L BUN 33 H Creatinine 2.2 H Random Glucose 211 H D Hemoglobin A1c % Calcium 8.1 L C-Reactive Protein Total LDL Cholesterol Laboratory Results - last 24 hr 05/09/17 05/10/17 05/10/17 22:41 00:28 00:28 ESR 108 H Sodium Potassium Chloride Carbon Dioxide Anion Gap BUN Creatinine POC Glucometer 226.39185 Random Glucose Hemoglobin A1c % 8.8 H D Calcium C-Reactive Protein Triglycerides Cholesterol Total LDL Cholesterol HDL Cholesterol 05/10/17 05/10/17 05/10/17 06:40 07:25 07:25 ESR Sodium Potassium Chloride Carbon Dioxide Anion Gap BUN Creatinine POC Glucometer 212 Random Glucose Hemoglobin A1c % Calcium C-Reactive Protein 9.0 H D Cancelled Triglycerides 150 D Cholesterol 161 Total LDL Cholesterol 102 H HDL Cholesterol 43 05/10/17 05/10/17 05/10/17 11:48 16:32 18:45 ESR Sodium 134 L Potassium 4.3 Chloride 99 Carbon Dioxide 26 Anion Gap 9 BUN 33 H Creatinine 2.2 H POC Glucometer 195 201 Random Glucose 211 H D Hemoglobin A1c % Calcium 8.1 L C-Reactive Protein Triglycerides Cholesterol Total LDL Cholesterol HDL Cholesterol plan: insulin pump with basal bolus units adjustment with carb counting basal rates 1.45 units /hr patient to adjust bolus with meals based on carb counting bgm qid using insulin pump to manage sugars ck hba1c
[2017-05-10] MEDS: morphine CARPU-JECT 4 MG/1 ML DISP.SYRIN IVPUSH PRN (23:54)
[2017-05-11] MEDS: PIPERACILLIN/TAZOB 3.375 GM/50 ML PRE-DOCKED IVPB SCH ×3 (02:00→19:00)
[2017-05-11] MEDS: INSULIN SLIDING SCALE (NOVOLOG) 1 VIAL SQ SCH ×4 (06:09→21:21)
[2017-05-11 08:24] LABS: MCH 27.7 pg (25.7-33.7); MCHC 33.4 g/dl (32.0-35.9); MEAN CELL VOLUME 82.9 fl (80-96); PLATELET COUNT 285 K/MM3 (134-434); RDW 12.3 % (11.9-15.9); WHITE BLOOD COUNT 11.6 K/mm3 (4.0-10.0)
[2017-05-11 08:47] LABS: CALCIUM 8.4 mg/dL (8.5-10.1); COCKROFT - GAULT 72.73; CREATININE 2.1 mg/dL (0.7-1.3)
[2017-05-11] MEDS ORDERED: PT OWN MED DRAWER 7, Y5N ONE (09:52)
[2017-05-11] MEDS: amLODIPine BESYLATE 10 MG TABLET (FP) PO SCH (10:03)
[2017-05-11] MEDS: ASPIRIN COATED 81 MG TABLET.EC PO SCH (10:03)
[2017-05-11] MEDS: LOSARTAN POTASSIUM 50 MG TABLET (FP) PO SCH (10:03)
[2017-05-11] MEDS: HEPARIN NA (PORCINE) 5,000 UNITS/ML 1ML VIAL SQ SCH ×2 (10:03→21:21)
[2017-05-11] MEDS: COLLAGENASE CLOSTRIDIUM HIST. 30 GRAMS TUBE TP SCH (10:49)
--- NOTE | 2017-05-11 11:08 | PN ---
Progress Note, Physician Chief Complaint: patient complaining of foot /heel pain on movement getting iv bax - Current Medication List Current Medications: Active Medications Acetaminophen (Tylenol -) 650 mg PO Q6H PRN PRN Reason: FEVER OR PAIN Last Admin: 05/10/17 16:43 Dose: 650 mg Amlodipine Besylate (Norvasc -) 10 mg PO DAILY [facility] Last Admin: 05/11/17 10:03 Dose: 10 mg Aspirin (Ecotrin -) 81 mg PO DAILY [facility] Last Admin: 05/11/17 10:03 Dose: 81 mg Collagenase (Santyl -) 1 applic TP DAILY [facility] Last Admin: 05/11/17 10:49 Dose: 1 applic Docusate Sodium (Colace -) 100 mg PO Q8H PRN PRN Reason: CONSTIPATION Heparin Sodium (Porcine) (Heparin -) 5,000 unit SQ BID [facility] Last Admin: 05/11/17 10:03 Dose: 5,000 unit Sodium Chloride (Normal Saline -) 1,000 mls @ 42 mls/hr IV ASDIR [facility] Last Admin: 05/10/17 18:53 Dose: 42 mls/hr Insulin Aspart (Novolog Vial Sliding Scale -) 1 vial SQ ACHS [facility] PRN Reason: Protocol Last Admin: 05/11/17 06:09 Dose: Not Given Insulin Detemir (Levemir Vial) 20 units SQ HS [facility] Last Admin: 05/10/17 22:09 Dose: Not Given Losartan Potassium (Cozaar -) 50 mg PO DAILY [facility] Last Admin: 05/11/17 10:03 Dose: 50 mg Morphine Sulfate (Morphine Injection -) 4 mg IVPUSH Q6H PRN PRN Reason: PAIN Last Admin: 05/10/17 23:54 Dose: 4 mg Oxycodone HCl (Roxicodone -) 5 mg PO Q6H PRN PRN Reason: PAIN Piperacillin Sod/Tazobactam Sod (Zosyn 3.375gm Ivpb (Pre-Docked)) 3.375 gm IVPB Q8H-IV [place] PRN Reason: Protocol Last Admin: 05/11/17 10:04 Dose: 3.375 gm - Objective Vital Signs: Vital Signs Temperature 97.6 F 05/11/17 08:06 Pulse Rate 88 05/11/17 08:06 Respiratory Rate 17 05/11/17 08:06 Blood Pressure 137/85 05/11/17 08:06 O2 Sat by Pulse Oximetry (%) 92 L 05/10/17 21:00 Constitutional: Yes: Calm Cardiovascular: Yes: Regular Rate and Rhythm, S1, S2 Respiratory: Yes: CTA Bilaterally Gastrointestinal: Yes: Soft Extremities: Yes: Other (right foot plantar surface lesion size of quarter clean pink on heel open wound with yellowish discharge tender to touch) Edema: Yes Wound/Incision: Yes: Dressing Removed Neurological: Yes: Alert, Oriented, Other (decreased sensation in LE and feet) Labs: CBC, BMP 05/11/17 07:15 05/11/17 07:15 Problem List - Problems (1) Diabetic foot ulcer Assessment/Plan: iv abx mRI of foot to r/o osteo collagenase appreicate vascular input Code(s): E11.621 - TYPE 2 DIABETES MELLITUS WITH FOOT ULCER L97.509 - NON-PRESSURE CHRONIC ULCER OTH PRT UNSP FOOT W UNSP SEVERITY Qualifiers: Diabetic foot ulcer location: heel Diabetes mellitus type: type 1 Laterality: right Non-pressure ulcer stage: with fat layer exposed Qualified Code(s): E10.621 - Type 1 diabetes mellitus with foot ulcer; L97.411 - Non-pressure chronic ulcer of right heel and midfoot limited to breakdown of skin (2) Diabetes mellitus, insulin dependent (IDDM), uncontrolled Assessment/Plan: appreicate endo consult hgba1c 8.8 still elevated but better than previous when it was in 10 range insulin per endocrine statin for elevated ldl Code(s): E10.65 - TYPE 1 DIABETES MELLITUS WITH HYPERGLYCEMIA Qualifiers: Diabetes mellitus complication detail: with foot ulcer (3) Hypertension Assessment/Plan: same meds Code(s): I10 - ESSENTIAL (PRIMARY) HYPERTENSION Qualifiers: Hypertension type: essential hypertension Qualified Code(s): I10 - Essential (primary) hypertension (4) Renal insufficiency Assessment/Plan: renal on board ultrasound noted iv hydration improving creatinine on aRB Code(s): N28.9 - DISORDER OF KIDNEY AND URETER, UNSPECIFIED
[2017-05-11 11:22] LABS: URINE APPEARANCE CLEAR; URINE BILIRUBIN NEGATIVE (NEGATIVE); URINE COLOR LTYELLOW; URINE GLUCOSE (UA) 1+ (NEGATIVE); URINE KETONE NEGATIVE (NEGATIVE); URINE LEUK ESTERASE NEGATIVE (NEGATIVE); URINE NITRITE NEGATIVE (NEGATIVE); URINE UROBILINOGEN NEGATIVE E.U./dl (0.2-1.0)
[2017-05-11 11:24] LABS: URINE BLOOD 2+ (NEGATIVE); URINE PROTEIN 2+ (NEGATIVE)
[2017-05-11 11:25] LABS: GRANULAR CASTS 2 /lpf; URINE MUCUS RARE; URINE RBC 11 /hpf (0-3); URINE WBC 3 /hpf (3-5)
--- NOTE | 2017-05-11 11:31 | PN ---
Progress Note (short form) - Note Progress Note: MRI ordered to r/o osteo. Waiting for above test and results. Cont Santyl to right foot ulcer.
--- NOTE | 2017-05-11 12:19 | PN ---
Progress Note (short form) - Note Progress Note: continues with leg pain groin pain unchanged Vital Signs Period Temp Pulse Resp BP Sys/Banuelos Pulse Ox Last 24 Hr 97.6 F-99.7 F 88-99 17-20 137-145/85-91 92-95 cor-rrr lulngs clear abd soft, nt ext swelling of right leg foot, +tender inguinal adenopathy dressing intact CBC, BMP 05/11/17 07:15 05/11/17 07:15 duplex no dvt Microbiology 05/09/17 19:17 Blood - Peripheral Venous Blood Culture - Preliminary NO GROWTH OBTAINED AFTER 24 HOURS, INCUBATION TO CONTINUE FOR 4 DAYS. 05/09/17 19:17 Blood - Peripheral Venous Blood Culture - Preliminary NO GROWTH OBTAINED AFTER 24 HOURS, INCUBATION TO CONTINUE FOR 4 DAYS. a/p fever diabetic foot ulcer r/o osteomyelitis leanne/ckd foot MRI- r/o osteomyelitis received vancomycin and zosyn in ed redose vancomycin today continue zosyn podiatry/surgery consult for debridement Problem List - Problems (1) Diabetic infection of right foot Code(s): E11.69 - TYPE 2 DIABETES MELLITUS WITH OTHER SPECIFIED COMPLICATION L08.9 - LOCAL INFECTION OF THE SKIN AND SUBCUTANEOUS TISSUE, UNSP (2) Osteomyelitis Code(s): M86.9 - OSTEOMYELITIS, UNSPECIFIED (3) Renal insufficiency Code(s): N28.9 - DISORDER OF KIDNEY AND URETER, UNSPECIFIED
[2017-05-11] MEDS ORDERED: VANCOMYCIN 1 GRAM (PRE-DOCKED) 1,000 MG/250 ML BAG IVPB ONE (12:30)
--- NOTE | 2017-05-11 15:00 | PN ---
Progress Note, Physician History of Present Illness: Pt seen and examined at bedside. He is more awake and alert today. He says he did see Dr Wu about a years ago for evaluation of elevated creatinine however he never followed up. - Current Medication List Current Medications: Active Medications Acetaminophen (Tylenol -) 650 mg PO Q6H PRN PRN Reason: FEVER OR PAIN Last Admin: 05/10/17 16:43 Dose: 650 mg Amlodipine Besylate (Norvasc -) 10 mg PO DAILY [facility] Last Admin: 05/11/17 10:03 Dose: 10 mg Aspirin (Ecotrin -) 81 mg PO DAILY [facility] Last Admin: 05/11/17 10:03 Dose: 81 mg Atorvastatin Calcium (Lipitor -) 20 mg PO HS [facility] Collagenase (Santyl -) 1 applic TP DAILY [facility] Last Admin: 05/11/17 10:49 Dose: 1 applic Docusate Sodium (Colace -) 100 mg PO Q8H PRN PRN Reason: CONSTIPATION Heparin Sodium (Porcine) (Heparin -) 5,000 unit SQ BID [facility] Last Admin: 05/11/17 10:03 Dose: 5,000 unit Sodium Chloride (Normal Saline -) 1,000 mls @ 42 mls/hr IV ASDIR [facility] Last Admin: 05/10/17 18:53 Dose: 42 mls/hr Insulin Aspart (Novolog Vial Sliding Scale -) 1 vial SQ ACHS [facility] PRN Reason: Protocol Last Admin: 05/11/17 11:19 Dose: Not Given Insulin Detemir (Levemir Vial) 20 units SQ HS [facility] Last Admin: 05/10/17 22:09 Dose: Not Given Losartan Potassium (Cozaar -) 50 mg PO DAILY [facility] Last Admin: 05/11/17 10:03 Dose: 50 mg Morphine Sulfate (Morphine Injection -) 4 mg IVPUSH Q6H PRN PRN Reason: PAIN Last Admin: 05/10/17 23:54 Dose: 4 mg Oxycodone HCl (Roxicodone -) 5 mg PO Q6H PRN PRN Reason: PAIN Piperacillin Sod/Tazobactam Sod (Zosyn 3.375gm Ivpb (Pre-Docked)) 3.375 gm IVPB Q8H-IV [place] PRN Reason: Protocol Last Admin: 05/11/17 10:04 Dose: 3.375 gm - Objective Vital Signs: Vital Signs Temperature 97.6 F 06/12/17 08:06 Pulse Rate 88 05/11/17 08:06 Respiratory Rate 17 05/11/17 08:06 Blood Pressure 137/85 05/11/17 08:06 O2 Sat by Pulse Oximetry (%) 95 05/11/17 09:00 Constitutional: Yes: Calm Eyes: Yes: Conjunctiva Clear HENT: Yes: Atraumatic Neck: Yes: Supple Cardiovascular: Yes: S1, S2 Respiratory: Yes: CTA Bilaterally Gastrointestinal: Yes: Soft Genitourinary: Yes: WNL Edema: Yes Edema: RLE: 1+ Neurological: Yes: Oriented Psychiatric: Yes: Oriented Labs: CBC, BMP 05/11/17 07:15 05/11/17 07:15 Problem List - Problems (1) Diabetic foot ulcer Code(s): E11.621 - TYPE 2 DIABETES MELLITUS WITH FOOT ULCER L97.509 - NON-PRESSURE CHRONIC ULCER OTH PRT UNSP FOOT W UNSP SEVERITY Qualifiers: Diabetic foot ulcer location: heel Diabetes mellitus type: type 1 Laterality: right Non-pressure ulcer stage: with fat layer exposed Qualified Code(s): E10.621 - Type 1 diabetes mellitus with foot ulcer; L97.411 - Non-pressure chronic ulcer of right heel and midfoot limited to breakdown of skin (2) Cellulitis of foot Code(s): L03.119 - CELLULITIS OF UNSPECIFIED PART OF LIMB (3) Lymphadenopathy Code(s): R59.1 - GENERALIZED ENLARGED LYMPH NODES (4) Renal insufficiency Code(s): N28.9 - DISORDER OF KIDNEY AND URETER, UNSPECIFIED Assessment/Plan Current Medications Generic Name Dose Route Start Last Admin Trade Name Freq PRN Reason Stop Dose Admin Acetaminophen 650 mg 05/09/17 21:58 05/10/17 16:43 Tylenol - PO 650 mg Q6H PRN Administration FEVER OR PAIN Amlodipine Besylate 10 mg 05/10/17 10:00 05/11/17 10:03 Norvasc - PO 10 mg DAILY [facility] Administration Aspirin 81 mg 05/10/17 10:00 05/11/17 10:03 Ecotrin - PO 81 mg DAILY [facility] Administration Atorvastatin Calcium 20 mg 05/11/17 22:00 Lipitor - PO HS [facility] Collagenase 1 applic 05/10/17 21:00 05/11/17 10:49 Santyl - TP 1 applic DAILY [facility] Administration Docusate Sodium 100 mg 05/09/17 21:58 Colace - PO Q8H PRN CONSTIPATION Heparin Sodium (Porcine) 5,000 unit 05/09/17 22:00 05/11/17 10:03 Heparin - SQ 5,000 unit BID [facility] Administration Sodium Chloride 1,000 mls @ 42 mls/hr 05/10/17 18:45 05/10/17 18:53 Normal Saline - IV 42 mls/hr ASDIR [facility] Administration Insulin Aspart 1 vial 05/09/17 22:00 05/11/17 11:19 Novolog Vial Sliding Scale - SQ Not Given ACHS [facility] Protocol Insulin Detemir 20 units 05/09/17 22:00 05/10/17 22:09 Levemir Vial SQ Not Given HS [facility] Losartan Potassium 50 mg 05/10/17 10:00 05/11/17 10:03 Cozaar - PO 50 mg DAILY [facility] Administration Morphine Sulfate 4 mg 05/10/17 11:42 05/10/17 23:54 Morphine Injection - IVPUSH 4 mg Q6H PRN Administration PAIN Oxycodone HCl 5 mg 05/09/17 21:58 Roxicodone - PO Q6H PRN PAIN Piperacillin Sod/Tazobactam Sod 3.375 gm 05/10/17 12:15 05/11/17 10:04 Zosyn 3.375gm Ivpb (Pre-Docked) IVPB 3.375 gm Q8H-IV [place] Administration Protocol Impression 1. CKD 2. Inguinal lymphadenopathy 3. DEYSI 4. DM 5. HTN 6. DFU Plan - renal function is stabilizing - cont with current fluids - wound care to foot - cont abx - pt will need to follow as outpt with Dr Wu - cont with losartan Dr Matthews
[2017-05-11] MEDS: SODIUM CHLORIDE 1,000 ML IV SCH (18:45)
[2017-05-11] MEDS: ATORVASTATIN CA 20 MG TABLET (FP) PO SCH (21:21)
[2017-05-11] MEDS: INSULIN DETEMIR 100 UNITS/ML MDV SQ SCH (21:22)
[2017-05-11] MEDS: morphine CARPU-JECT 4 MG/1 ML DISP.SYRIN IVPUSH PRN (21:25)
[2017-05-12] MEDS: PIPERACILLIN/TAZOB 3.375 GM/50 ML PRE-DOCKED IVPB SCH ×3 (01:11→17:23)
[2017-05-12] MEDS: INSULIN SLIDING SCALE (NOVOLOG) 1 VIAL SQ SCH ×4 (06:26→21:53)
[2017-05-12 07:48] LABS: BASOPHIL 1.3 % (0-2.0); EOSINOPHIL 4.8 % (0-4.5); MCH 28.1 pg (25.7-33.7); MCHC 34.1 g/dl (32.0-35.9); MEAN CELL VOLUME 82.4 fl (80-96); MEAN PLT VOLUME 7.6 fl (7.5-11.1); NEUTROPHILS 68.9 % (42.8-82.8); PLATELET COUNT 294 K/MM3 (134-434); RDW 12.2 % (11.9-15.9); WHITE BLOOD COUNT 9.9 K/mm3 (4.0-10.0)
[2017-05-12 08:11] LABS: CHOLESTEROL 167 mg/dL (50-200); LDL CHOLESTEROL (ONLY SJRH) 105 mg/dL (5-100)
[2017-05-12 08:13] LABS: ALBUMIN 2.4 g/dl (3.4-5.0); BILIRUBIN,TOTAL 0.5 mg/dL (0.2-1.0); CALCIUM 8.3 mg/dL (8.5-10.1); COCKROFT - GAULT 76.37; TOT PROT 7.4 g/dl (6.4-8.2)
[2017-05-12] MEDS: LOSARTAN POTASSIUM 50 MG TABLET (FP) PO SCH (09:47)
[2017-05-12] MEDS: ASPIRIN COATED 81 MG TABLET.EC PO SCH (09:47)
[2017-05-12] MEDS: HEPARIN NA (PORCINE) 5,000 UNITS/ML 1ML VIAL SQ SCH ×2 (09:48→21:51)
[2017-05-12] MEDS: amLODIPine BESYLATE 10 MG TABLET (FP) PO SCH (09:48)
--- NOTE | 2017-05-12 10:43 | PN ---
Progress Note, Physician - Current Medication List Current Medications: Active Medications Acetaminophen (Tylenol -) 650 mg PO Q6H PRN PRN Reason: FEVER OR PAIN Last Admin: 05/10/17 16:43 Dose: 650 mg Amlodipine Besylate (Norvasc -) 10 mg PO DAILY [facility] Last Admin: 05/12/17 09:48 Dose: 10 mg Aspirin (Ecotrin -) 81 mg PO DAILY [facility] Last Admin: 05/12/17 09:47 Dose: 81 mg Atorvastatin Calcium (Lipitor -) 20 mg PO HS [facility] Last Admin: 05/11/17 21:21 Dose: 20 mg Collagenase (Santyl -) 1 applic TP DAILY [facility] Last Admin: 05/11/17 10:49 Dose: 1 applic Docusate Sodium (Colace -) 100 mg PO Q8H PRN PRN Reason: CONSTIPATION Heparin Sodium (Porcine) (Heparin -) 5,000 unit SQ BID [facility] Last Admin: 05/12/17 09:48 Dose: 5,000 unit Sodium Chloride (Normal Saline -) 1,000 mls @ 42 mls/hr IV ASDIR [facility] Last Admin: 05/11/17 18:45 Dose: 42 mls/hr Insulin Aspart (Novolog Vial Sliding Scale -) 1 vial SQ ACHS [facility] PRN Reason: Protocol Last Admin: 05/12/17 06:26 Dose: Not Given Insulin Detemir (Levemir Vial) 20 units SQ HS [facility] Last Admin: 05/11/17 21:22 Dose: Not Given Losartan Potassium (Cozaar -) 50 mg PO DAILY [facility] Last Admin: 05/12/17 09:47 Dose: 50 mg Morphine Sulfate (Morphine Injection -) 4 mg IVPUSH Q6H PRN PRN Reason: PAIN Last Admin: 05/11/17 21:25 Dose: 4 mg Oxycodone HCl (Roxicodone -) 5 mg PO Q6H PRN PRN Reason: PAIN Piperacillin Sod/Tazobactam Sod (Zosyn 3.375gm Ivpb (Pre-Docked)) 3.375 gm IVPB Q8H-IV [place] PRN Reason: Protocol Last Admin: 05/12/17 09:48 Dose: 3.375 gm - Objective Vital Signs: Vital Signs Temperature 98.6 F 05/12/17 06:00 Pulse Rate 90 05/12/17 06:00 Respiratory Rate 16 05/12/17 06:00 Blood Pressure 146/77 05/12/17 06:00 O2 Sat by Pulse Oximetry (%) 97 05/11/17 22:00 Constitutional: Yes: Calm Neck: Yes: Trachea Midline Cardiovascular: Yes: Regular Rate and Rhythm, S1, S2 Respiratory: Yes: CTA Bilaterally Gastrointestinal: Yes: Normal Bowel Sounds, Soft Extremities: Yes: Other (right foot wound on heel open draining tenderness to touch) Edema: Yes Labs: CBC, BMP 05/12/17 06:20 05/12/17 06:20 Problem List - Problems (1) Osteomyelitis Assessment/Plan: podiatry to see patient iv abx for atleast 4- 6 weeks dvt ppx Code(s): M86.9 - OSTEOMYELITIS, UNSPECIFIED Qualifiers: Osteomyelitis location: ankle Laterality: right (2) Diabetic foot ulcer Assessment/Plan: iv abx per ID mRI of foot shows osteo will need prison abx 6 weeks collagenase appreicate vascular input consult podiatry Code(s): E11.621 - TYPE 2 DIABETES MELLITUS WITH FOOT ULCER L97.509 - NON-PRESSURE CHRONIC ULCER OTH PRT UNSP FOOT W UNSP SEVERITY Qualifiers: Diabetic foot ulcer location: heel Diabetes mellitus type: type 1 Laterality: right Non-pressure ulcer stage: with fat layer exposed Qualified Code(s): E10.621 - Type 1 diabetes mellitus with foot ulcer; L97.411 - Non-pressure chronic ulcer of right heel and midfoot limited to breakdown of skin (3) Diabetes mellitus, insulin dependent (IDDM), uncontrolled Assessment/Plan: appreicate endo consult [id number] 8.8 still elevated but better than previous when it was in 10 range insulin per endocrine statin for elevated ldl Code(s): E10.65 - TYPE 1 DIABETES MELLITUS WITH HYPERGLYCEMIA Qualifiers: Diabetes mellitus complication detail: with foot ulcer (4) Hypertension Assessment/Plan: same meds continue cozaar Code(s): I10 - ESSENTIAL (PRIMARY) HYPERTENSION Qualifiers: Hypertension type: essential hypertension Qualified Code(s): I10 - Essential (primary) hypertension (5) Renal insufficiency Assessment/Plan: renal on board ultrasound noted iv hydration improving creatinine- now seems to be baseline on aRB Code(s): N28.9 - DISORDER OF KIDNEY AND URETER, UNSPECIFIED
--- NOTE | 2017-05-12 13:51 | PN ---
Progress Note (short form) - Note Progress Note: VAscular Surgery Pt seen and examined. MRI does not show collection in right heel. Consistent with osteo. Will prob need IV antibiotics via picc. ID to see. Will follow Pierre Thompson DO
--- NOTE | 2017-05-12 14:36 | PN ---
Progress Note (short form) - Note Progress Note: complains of right thigh pain some decrease in inguinal adenopathy Vital Signs Period Temp Pulse Resp BP Sys/Banuelos Pulse Ox Last 24 Hr 98.1 F-98.8 F 89-102 16-18 144-156/77-90 97 cor-rrr lungs clear abd soft,nt ext +pain right anterior thigh ?palpable cord painful to touch, +inguinal adenopathy heel ulcer with brownish drainage +malodor +mri for calcaneal osteo CBC, BMP 05/12/17 06:20 05/12/17 06:20 a/p diabetic ulcer osteo ?phlebitis continue vanco/zosyn ultrasound thigh, repeat duplex-d/w dr durbin, he will evaluate agree with podiatry evaluation will need group home iv antibiotics Problem List - Problems (1) Diabetic infection of right foot Code(s): E11.69 - TYPE 2 DIABETES MELLITUS WITH OTHER SPECIFIED COMPLICATION L08.9 - LOCAL INFECTION OF THE SKIN AND SUBCUTANEOUS TISSUE, UNSP (2) Osteomyelitis Code(s): M86.9 - OSTEOMYELITIS, UNSPECIFIED Qualifiers: Osteomyelitis location: ankle Laterality: right (3) Renal insufficiency Code(s): N28.9 - DISORDER OF KIDNEY AND URETER, UNSPECIFIED
[2017-05-12] MEDS ORDERED: VANCOMYCIN 1 GRAM (PRE-DOCKED) 1,000 MG/250 ML BAG IVPB ONE (15:15)
[2017-05-12] MEDS: COLLAGENASE CLOSTRIDIUM HIST. 30 GRAMS TUBE TP SCH (16:06)
--- NOTE | 2017-05-12 17:06 | CONSULT ---
Consult - text type - Consultation Consultation Note: Podiatry Consultation: 47 year old IDDM M presented for admission with worsening pain to R heel, R heel DM ulcer. Patient states that the wound has been present for at least one month. He went to see a local hotel maintenance worker 3 weeks ago who prescribed PO abx. Failed trial of PO abx. Patient was sent as a consultation to wound care for HBO Tx, however developed increased pain to R heel. Denies F/V/N/C/SOB/CP. Currently afebrile. PMHx: IDDM, HTN, HLP Meds: noted in chart ALL: NKMA NATALIIA: R foot: pedal pulses palpable, TG wnl, CFT brisk to all toes bilaterally. There is a posterolateral DM ulcer with fibrotic base, excessive tenderness to palpation, probes deep, no purulence, no soft tissue crepitus, no ascending cellulitis. WBC: 9.9 ESR: 108 R foot MRI: osteomyelitis posterolateral calcaneus Imp: 47 year old IDDM M with R heel DFU and osteomyelitis 1. Excisional debridement performed at bedside using sterile #15 blade scalpel to level of subcutaneous tissue. No purulence expressed from ulcer. 2. Continue IV abx per ID 3. Santyl + DSD R foot daily 4. Will reassess and if condition does not improve will require debridement of R heel and bone biopsy. Discussed this at length with the patient and his . 5. Will follow. Thank you for the courtesy of this consultation. Mary Jane Landin DPM
--- NOTE | 2017-05-12 17:25 | PN ---
Progress Note, Physician History of Present Illness: Pt seen and examined at bedside. He is awake and alert. He does not feel that his foot is improved much. - Current Medication List Current Medications: Active Medications Acetaminophen (Tylenol -) 650 mg PO Q6H PRN PRN Reason: FEVER OR PAIN Last Admin: 05/10/17 16:43 Dose: 650 mg Amlodipine Besylate (Norvasc -) 10 mg PO DAILY [facility] Last Admin: 05/12/17 09:48 Dose: 10 mg Aspirin (Ecotrin -) 81 mg PO DAILY [facility] Last Admin: 05/12/17 09:47 Dose: 81 mg Atorvastatin Calcium (Lipitor -) 20 mg PO HS [facility] Last Admin: 05/11/17 21:21 Dose: 20 mg Collagenase (Santyl -) 1 applic TP DAILY [facility] Last Admin: 05/12/17 16:06 Dose: 1 applic Docusate Sodium (Colace -) 100 mg PO Q8H PRN PRN Reason: CONSTIPATION Heparin Sodium (Porcine) (Heparin -) 5,000 unit SQ BID [facility] Last Admin: 05/12/17 09:48 Dose: 5,000 unit Sodium Chloride (Normal Saline -) 1,000 mls @ 42 mls/hr IV ASDIR [facility] Last Admin: 05/11/17 18:45 Dose: 42 mls/hr Insulin Aspart (Novolog Vial Sliding Scale -) 1 vial SQ ACHS [facility] PRN Reason: Protocol Last Admin: 05/12/17 17:17 Dose: Not Given Insulin Detemir (Levemir Vial) 20 units SQ HS [facility] Last Admin: 05/11/17 21:22 Dose: Not Given Losartan Potassium (Cozaar -) 50 mg PO DAILY [facility] Last Admin: 05/12/17 09:47 Dose: 50 mg Morphine Sulfate (Morphine Injection -) 4 mg IVPUSH Q6H PRN PRN Reason: PAIN Last Admin: 05/11/17 21:25 Dose: 4 mg Oxycodone HCl (Roxicodone -) 5 mg PO Q6H PRN PRN Reason: PAIN Last Admin: 05/12/17 14:33 Dose: 5 mg Piperacillin Sod/Tazobactam Sod (Zosyn 3.375gm Ivpb (Pre-Docked)) 3.375 gm IVPB Q8H-IV [place] PRN Reason: Protocol Last Admin: 05/12/17 09:48 Dose: 3.375 gm - Objective Vital Signs: Vital Signs Temperature 98.4 F 05/12/17 14:52 Pulse Rate 95 H 05/12/17 14:52 Respiratory Rate 18 05/12/17 14:52 Blood Pressure 148/83 05/12/17 14:52 O2 Sat by Pulse Oximetry (%) 97 05/12/17 09:00 Constitutional: Yes: Calm Eyes: Yes: Conjunctiva Clear HENT: Yes: Atraumatic Neck: Yes: Supple Cardiovascular: Yes: S1, S2 Respiratory: Yes: CTA Bilaterally Gastrointestinal: Yes: Soft Genitourinary: Yes: WNL Edema: Yes Edema: RLE: Trace Wound/Incision: Yes: Dressing Dry and Intact Neurological: Yes: Oriented Psychiatric: Yes: Oriented Labs: CBC, BMP 05/12/17 06:20 05/12/17 06:20 Problem List - Problems (1) Diabetic foot ulcer Code(s): E11.621 - TYPE 2 DIABETES MELLITUS WITH FOOT ULCER L97.509 - NON-PRESSURE CHRONIC ULCER OTH PRT UNSP FOOT W UNSP SEVERITY Qualifiers: Diabetic foot ulcer location: heel Diabetes mellitus type: type 1 Laterality: right Non-pressure ulcer stage: with fat layer exposed Qualified Code(s): E10.621 - Type 1 diabetes mellitus with foot ulcer; L97.411 - Non-pressure chronic ulcer of right heel and midfoot limited to breakdown of skin (2) Cellulitis of foot Code(s): L03.119 - CELLULITIS OF UNSPECIFIED PART OF LIMB (3) Lymphadenopathy Code(s): R59.1 - GENERALIZED ENLARGED LYMPH NODES (4) Renal insufficiency Code(s): N28.9 - DISORDER OF KIDNEY AND URETER, UNSPECIFIED Assessment/Plan Current Medications Generic Name Dose Route Start Last Admin Trade Name Freq PRN Reason Stop Dose Admin Acetaminophen 650 mg 05/09/17 21:58 05/10/17 16:43 Tylenol - PO 650 mg Q6H PRN Administration FEVER OR PAIN Amlodipine Besylate 10 mg 05/10/17 10:00 05/12/17 09:48 Norvasc - PO 10 mg DAILY [place] Administration Aspirin 81 mg 05/10/17 10:00 05/12/17 09:47 Ecotrin - PO 81 mg DAILY [facility] Administration Atorvastatin Calcium 20 mg 05/11/17 22:00 05/11/17 21:21 Lipitor - PO 20 mg HS [place] Administration Collagenase 1 applic 05/10/17 21:00 05/12/17 16:06 Santyl - TP 1 applic DAILY [facility] Administration Docusate Sodium 100 mg 05/09/17 21:58 Colace - PO Q8H PRN CONSTIPATION Heparin Sodium (Porcine) 5,000 unit 05/09/17 22:00 05/12/17 09:48 Heparin - SQ 5,000 unit BID [place] Administration Sodium Chloride 1,000 mls @ 42 mls/hr 05/10/17 18:45 05/11/17 18:45 Normal Saline - IV 42 mls/hr ASDIR [place] Administration Insulin Aspart 1 vial 05/09/17 22:00 05/12/17 17:17 Novolog Vial Sliding Scale - SQ Not Given ACHS [facility] Protocol Insulin Detemir 20 units 05/09/17 22:00 05/11/17 21:22 Levemir Vial SQ Not Given HS [place] Losartan Potassium 50 mg 05/10/17 10:00 05/12/17 09:47 Cozaar - PO 50 mg DAILY [facility] Administration Morphine Sulfate 4 mg 05/10/17 11:42 05/11/17 21:25 Morphine Injection - IVPUSH 4 mg Q6H PRN Administration PAIN Oxycodone HCl 5 mg 05/09/17 21:58 05/12/17 14:33 Roxicodone - PO 5 mg Q6H PRN Administration PAIN Piperacillin Sod/Tazobactam Sod 3.375 gm 05/10/17 12:15 05/12/17 09:48 Zosyn 3.375gm Ivpb (Pre-Docked) IVPB 3.375 gm Q8H-IV [place] Administration Protocol Impression 1. CKD 2. Inguinal lymphadenopathy 3. DEYSI 4. DM 5. HTN 6. DFU Plan - creatinine is improved - cont fluids - abx per ID - wound care to foot - cont with losartan Dr Matthews
[2017-05-12] MEDS: morphine CARPU-JECT 4 MG/1 ML DISP.SYRIN IVPUSH PRN (21:51)
[2017-05-12] MEDS: ATORVASTATIN CA 20 MG TABLET (FP) PO SCH (21:53)
[2017-05-12] MEDS: SODIUM CHLORIDE 1,000 ML IV SCH (21:53)
[2017-05-12] MEDS: INSULIN DETEMIR 100 UNITS/ML MDV SQ SCH (21:53)
[2017-05-12] MEDS ORDERED: QUEtiapine FUMARATE 50 MG TABLET PO SCH (22:30)
--- NOTE | 2017-05-13 00:39 | PN ---
Progress Note, Physician Chief Complaint: high sugars and wound right foot not healing yet History of Present Illness: iddm on insulin pump minimed 630g using basal bolus for controll bs levels,high 200 despite higher rates adjustment of basal rates - Current Medication List Current Medications: Active Medications Acetaminophen (Tylenol -) 650 mg PO Q6H PRN PRN Reason: FEVER OR PAIN Last Admin: 05/10/17 16:43 Dose: 650 mg Amlodipine Besylate (Norvasc -) 10 mg PO DAILY [facility] Last Admin: 05/12/17 09:48 Dose: 10 mg Aspirin (Ecotrin -) 81 mg PO DAILY [facility] Last Admin: 05/12/17 09:47 Dose: 81 mg Atorvastatin Calcium (Lipitor -) 20 mg PO HS [facility] Last Admin: 05/12/17 21:53 Dose: 20 mg Collagenase (Santyl -) 1 applic TP DAILY [facility] Last Admin: 05/12/17 16:06 Dose: 1 applic Docusate Sodium (Colace -) 100 mg PO Q8H PRN PRN Reason: CONSTIPATION Heparin Sodium (Porcine) (Heparin -) 5,000 unit SQ BID [facility] Last Admin: 05/12/17 21:51 Dose: 5,000 unit Sodium Chloride (Normal Saline -) 1,000 mls @ 42 mls/hr IV ASDIR [facility] Last Admin: 05/12/17 21:53 Dose: 42 mls/hr Insulin Aspart (Novolog Vial Sliding Scale -) 1 vial SQ ACHS [facility] PRN Reason: Protocol Last Admin: 05/12/17 21:53 Dose: Not Given Insulin Detemir (Levemir Vial) 20 units SQ HS [facility] Last Admin: 05/12/17 21:53 Dose: Not Given Losartan Potassium (Cozaar -) 50 mg PO DAILY [facility] Last Admin: 05/12/17 09:47 Dose: 50 mg Morphine Sulfate (Morphine Injection -) 4 mg IVPUSH Q6H PRN PRN Reason: PAIN Last Admin: 05/12/17 21:51 Dose: 4 mg Oxycodone HCl (Roxicodone -) 5 mg PO Q6H PRN PRN Reason: PAIN Last Admin: 05/12/17 14:33 Dose: 5 mg Piperacillin Sod/Tazobactam Sod (Zosyn 3.375gm Ivpb (Pre-Docked)) 3.375 gm IVPB Q8H-IV [facility] PRN Reason: Protocol Last Admin: 05/12/17 17:23 Dose: 3.375 gm - Objective Vital Signs: Vital Signs Temperature 98.2 F 05/12/17 19:04 Pulse Rate 93 H 05/12/17 19:04 Respiratory Rate 20 05/12/17 19:04 Blood Pressure 147/84 05/12/17 19:04 O2 Sat by Pulse Oximetry (%) 97 05/12/17 09:00 Constitutional: Yes: Well Nourished Eyes: Yes: EOM Intact HENT: Yes: Normocephalic Neck: Yes: WNL Cardiovascular: Yes: WNL Respiratory: Yes: WNL Gastrointestinal: Yes: WNL ...Rectal Exam: Yes: Deferred Genitourinary: Yes: WNL Breast(s): Yes: WNL Musculoskeletal: Yes: Muscle Pain, Muscle Weakness Edema: Yes Edema: RLE: Trace Peripheral Pulses WNL: Yes Wound/Incision: Yes: Well Approximated, Dressing Dry and Intact Neurological: Yes: Alert, Oriented Labs: CBC, BMP 05/12/17 06:20 05/12/17 06:20 Problem List - Problems (1) Diabetic foot ulcer Code(s): E11.621 - TYPE 2 DIABETES MELLITUS WITH FOOT ULCER L97.509 - NON-PRESSURE CHRONIC ULCER OTH PRT UNSP FOOT W UNSP SEVERITY Qualifiers: Diabetic foot ulcer location: heel Diabetes mellitus type: type 1 Laterality: right Non-pressure ulcer stage: with fat layer exposed Qualified Code(s): E10.621 - Type 1 diabetes mellitus with foot ulcer; L97.411 - Non-pressure chronic ulcer of right heel and midfoot limited to breakdown of skin (2) Diabetic infection of right foot Code(s): E11.69 - TYPE 2 DIABETES MELLITUS WITH OTHER SPECIFIED COMPLICATION L08.9 - LOCAL INFECTION OF THE SKIN AND SUBCUTANEOUS TISSUE, UNSP (3) Osteomyelitis Code(s): M86.9 - OSTEOMYELITIS, UNSPECIFIED Qualifiers: Osteomyelitis location: ankle Laterality: right (4) Cellulitis of foot Code(s): L03.119 - CELLULITIS OF UNSPECIFIED PART OF LIMB (5) Diabetes mellitus, insulin dependent (IDDM), uncontrolled Code(s): E10.65 - TYPE 1 DIABETES MELLITUS WITH HYPERGLYCEMIA Qualifiers: Diabetes mellitus complication detail: with foot ulcer Assessment/Plan Current Active Problems Diabetic foot ulcer (Acute) Diabetic infection of right foot (Acute) Osteomyelitis (Acute) right foot ulcer iddm neuropathy hyperglycemia Abnormal Lab Results 05/12/17 05/12/17 05/12/17 06:20 06:20 06:20 RBC 3.58 L Hgb 10.1 L Hct 29.5 L Monocytes % 13.0 H Eosinophils % 4.8 H BUN 31 H Creatinine 2.0 H Random Glucose 121 H Calcium 8.3 L Albumin 2.4 L Triglycerides 196 H D Total LDL Cholesterol 105 H HDL Cholesterol 37 L Laboratory Results - last 24 hr 05/12/17 05/12/17 05/12/17 06:20 06:20 06:20 WBC 9.9 RBC 3.58 L Hgb 10.1 L Hct 29.5 L MCV 82.4 MCHC 34.1 RDW 12.2 Plt Count 294 MPV 7.6 Neutrophils % 68.9 Lymphocytes % 12.0 Monocytes % 13.0 H Eosinophils % 4.8 H Basophils % 1.3 D Sodium 136 Cancelled Potassium 4.4 Cancelled Chloride 103 Cancelled Carbon Dioxide 25 Cancelled Anion Gap 8 Cancelled BUN 31 H Cancelled Creatinine 2.0 H Cancelled Creat Clearance w eGFR 35.99 POC Glucometer Random Glucose 121 H Cancelled Calcium 8.3 L Cancelled Total Bilirubin 0.5 D AST 30 ALT 33 D Alkaline Phosphatase 85 Total Protein 7.4 Albumin 2.4 L Triglycerides 196 H D Cholesterol 167 Total LDL Cholesterol 105 H HDL Cholesterol 37 L 05/12/17 05/12/17 05/12/17 06:24 12:03 16:52 WBC RBC Hgb Hct MCV MCHC RDW Plt Count MPV Neutrophils % Lymphocytes % Monocytes % Eosinophils % Basophils % Sodium Potassium Chloride Carbon Dioxide Anion Gap BUN Creatinine Creat Clearance w eGFR POC Glucometer 130 140 221 Random Glucose Calcium Total Bilirubin AST ALT Alkaline Phosphatase Total Protein Albumin Triglycerides Cholesterol Total LDL Cholesterol HDL Cholesterol 05/12/17 21:58 WBC RBC Hgb Hct MCV MCHC RDW Plt Count MPV Neutrophils % Lymphocytes % Monocytes % Eosinophils % Basophils % Sodium Potassium Chloride Carbon Dioxide Anion Gap BUN Creatinine Creat Clearance w eGFR POC Glucometer 225 Random Glucose Calcium Total Bilirubin AST ALT Alkaline Phosphatase Total Protein Albumin Triglycerides Cholesterol Total LDL Cholesterol HDL Cholesterol plan: wound care as per podiatry bgm novololg insulin basal bolus pump Current Medications Generic Name Dose Route Start Last Admin Trade Name Freq PRN Reason Stop Dose Admin Acetaminophen 650 mg 05/09/17 21:58 05/10/17 16:43 Tylenol - PO 650 mg Q6H PRN Administration FEVER OR PAIN Amlodipine Besylate 10 mg 05/10/17 10:00 05/12/17 09:48 Norvasc - PO 10 mg DAILY [facility] Administration Aspirin 81 mg 05/10/17 10:00 05/12/17 09:47 Ecotrin - PO 81 mg DAILY [facility] Administration Atorvastatin Calcium 20 mg 05/11/17 22:00 05/12/17 21:53 Lipitor - PO 20 mg HS [facility] Administration Collagenase 1 applic 05/10/17 21:00 05/12/17 16:06 Santyl - TP 1 applic DAILY [facility] Administration Docusate Sodium 100 mg 05/09/17 21:58 Colace - PO Q8H PRN CONSTIPATION Heparin Sodium (Porcine) 5,000 unit 05/09/17 22:00 05/12/17 21:51 Heparin - SQ 5,000 unit BID [facility] Administration Sodium Chloride 1,000 mls @ 42 mls/hr 05/10/17 18:45 05/12/17 21:53 Normal Saline - IV 42 mls/hr ASDIR [facility] Administration Insulin Aspart 1 vial 05/09/17 22:00 05/12/17 21:53 Novolog Vial Sliding Scale - SQ Not Given ACHS [facility] Protocol Insulin Detemir 20 units 05/09/17 22:00 05/12/17 21:53 Levemir Vial SQ Not Given HS [facility] Losartan Potassium 50 mg 05/10/17 10:00 05/12/17 09:47 Cozaar - PO 50 mg DAILY [facility] Administration Morphine Sulfate 4 mg 05/10/17 11:42 05/12/17 21:51 Morphine Injection - IVPUSH 4 mg Q6H PRN Administration PAIN Oxycodone HCl 5 mg 05/09/17 21:58 05/12/17 14:33 Roxicodone - PO 5 mg Q6H PRN Administration PAIN Piperacillin Sod/Tazobactam Sod 3.375 gm 05/10/17 12:15 05/12/17 17:23 Zosyn 3.375gm Ivpb (Pre-Docked) IVPB 3.375 gm Q8H-IV [facility] Administration Protocol
[2017-05-13] MEDS: PIPERACILLIN/TAZOB 3.375 GM/50 ML PRE-DOCKED IVPB SCH ×3 (01:51→17:12)
[2017-05-13] MEDS: INSULIN SLIDING SCALE (NOVOLOG) 1 VIAL SQ SCH ×4 (06:17→22:30)
[2017-05-13] MEDS ORDERED: METOPROLOL SUCCINATE 50 MG TAB.SR.24H (FP) PO SCH (10:00)
--- NOTE | 2017-05-13 10:09 | PN ---
Progress Note (short form) - Note Progress Note: complains of right thigh pain unchanged some decrease in inguinal adenopathy leg still swollen but less Vital Signs Period Temp Pulse Resp BP Sys/Banuelos Pulse Ox Last 24 Hr 98.2 F-98.6 F 80-95 16-20 127-148/74-84 97 cor-rrr lungs clear abd soft,nt ext ulcer with foulsmelling drainage on gauze some erythema of lateral malleolus CBC, BMP 05/12/17 06:20 05/12/17 06:20 ultrazsound/duplex- no dvt, +inguinal nodes a/p diabetic ulcer osteo dm ckd continue vanco/zosyn vanco level today d/w podiatry for possible operative debridement and bone biopsy on Thursday Problem List - Problems (1) Diabetic infection of right foot Code(s): E11.69 - TYPE 2 DIABETES MELLITUS WITH OTHER SPECIFIED COMPLICATION L08.9 - LOCAL INFECTION OF THE SKIN AND SUBCUTANEOUS TISSUE, UNSP (2) Osteomyelitis Code(s): M86.9 - OSTEOMYELITIS, UNSPECIFIED Qualifiers: Osteomyelitis location: ankle Laterality: right (3) Renal insufficiency Code(s): N28.9 - DISORDER OF KIDNEY AND URETER, UNSPECIFIED
[2017-05-13] MEDS: ASPIRIN COATED 81 MG TABLET.EC PO SCH (10:24)
[2017-05-13] MEDS: HEPARIN NA (PORCINE) 5,000 UNITS/ML 1ML VIAL SQ SCH ×2 (10:24→22:16)
[2017-05-13] MEDS: amLODIPine BESYLATE 10 MG TABLET (FP) PO SCH (10:24)
[2017-05-13] MEDS: LOSARTAN POTASSIUM 50 MG TABLET (FP) PO SCH (10:24)
[2017-05-13 12:14] LABS: COCKROFT - GAULT 80.39; CREATININE 1.9 mg/dL (0.7-1.3)
[2017-05-13 12:15] LABS: CALCIUM 7.8 mg/dL (8.5-10.1)
[2017-05-13] MEDS: morphine CARPU-JECT 4 MG/1 ML DISP.SYRIN IVPUSH PRN ×2 (13:34→22:15)
[2017-05-13] MEDS: VANCOMYCIN 1 GRAM (PRE-DOCKED) 1,000 MG/250 ML BAG IVPB SCH (14:14)
[2017-05-13] MEDS: COLLAGENASE CLOSTRIDIUM HIST. 30 GRAMS TUBE TP SCH (14:15)
--- NOTE | 2017-05-13 18:02 | PN ---
Progress Note, Physician History of Present Illness: Pt seen and examined at bedside. He is awake and alert. He denies shortness of breath. He denies fevers or chills. - Current Medication List Current Medications: Active Medications Acetaminophen (Tylenol -) 650 mg PO Q6H PRN PRN Reason: FEVER OR PAIN Last Admin: 05/10/17 16:43 Dose: 650 mg Amlodipine Besylate (Norvasc -) 10 mg PO DAILY [facility] Last Admin: 05/13/17 10:24 Dose: 10 mg Aspirin (Ecotrin -) 81 mg PO DAILY [facility] Last Admin: 05/13/17 10:24 Dose: 81 mg Atorvastatin Calcium (Lipitor -) 20 mg PO HS [facility] Last Admin: 05/12/17 21:53 Dose: 20 mg Collagenase (Santyl -) 1 applic TP DAILY [facility] Last Admin: 05/13/17 14:15 Dose: 1 applic Docusate Sodium (Colace -) 100 mg PO Q8H PRN PRN Reason: CONSTIPATION Heparin Sodium (Porcine) (Heparin -) 5,000 unit SQ BID [facility] Last Admin: 05/13/17 10:24 Dose: 5,000 unit Sodium Chloride (Normal Saline -) 1,000 mls @ 42 mls/hr IV ASDIR [facility] Last Admin: 05/12/17 21:53 Dose: 42 mls/hr Insulin Aspart (Novolog Vial Sliding Scale -) 1 vial SQ ACHS [facility] PRN Reason: Protocol Last Admin: 05/13/17 17:09 Dose: Not Given Insulin Detemir (Levemir Vial) 20 units SQ HS [facility] Last Admin: 05/12/17 21:53 Dose: Not Given Losartan Potassium (Cozaar -) 50 mg PO DAILY [facility] Last Admin: 05/13/17 10:24 Dose: 50 mg Morphine Sulfate (Morphine Injection -) 4 mg IVPUSH Q6H PRN PRN Reason: PAIN Last Admin: 05/13/17 13:34 Dose: 4 mg Oxycodone HCl (Roxicodone -) 5 mg PO Q6H PRN PRN Reason: PAIN Last Admin: 05/12/17 14:33 Dose: 5 mg Piperacillin Sod/Tazobactam Sod (Zosyn 3.375gm Ivpb (Pre-Docked)) 3.375 gm IVPB Q8H-IV [facility] PRN Reason: Protocol Last Admin: 05/13/17 17:12 Dose: 3.375 gm Vancomycin HCl (Vancomycin (Pre-Docked)) 1,000 mg IVPB DAILY@1400 [facility] PRN Reason: Protocol Last Admin: 05/13/17 14:14 Dose: 1,000 mg - Objective Vital Signs: Vital Signs Temperature 98.0 F 05/13/17 13:41 Pulse Rate 93 H 05/13/17 13:41 Respiratory Rate 18 05/13/17 13:41 Blood Pressure 141/95 05/13/17 13:41 O2 Sat by Pulse Oximetry (%) 97 05/13/17 09:00 Constitutional: Yes: Calm Eyes: Yes: Conjunctiva Clear HENT: Yes: Atraumatic Neck: Yes: Supple Cardiovascular: Yes: S1, S2 Respiratory: Yes: CTA Bilaterally Gastrointestinal: Yes: WNL, Normal Bowel Sounds, Soft Musculoskeletal: Yes: WNL Edema: Yes Edema: RLE: Trace Wound/Incision: Yes: Dressing Dry and Intact Neurological: Yes: Oriented Labs: CBC, BMP 05/12/17 06:20 05/13/17 10:36 Problem List - Problems (1) Diabetic foot ulcer Code(s): E11.621 - TYPE 2 DIABETES MELLITUS WITH FOOT ULCER L97.509 - NON-PRESSURE CHRONIC ULCER OTH PRT UNSP FOOT W UNSP SEVERITY Qualifiers: Diabetic foot ulcer location: heel Diabetes mellitus type: type 1 Laterality: right Non-pressure ulcer stage: with fat layer exposed Qualified Code(s): E10.621 - Type 1 diabetes mellitus with foot ulcer; L97.411 - Non-pressure chronic ulcer of right heel and midfoot limited to breakdown of skin (2) Cellulitis of foot Code(s): L03.119 - CELLULITIS OF UNSPECIFIED PART OF LIMB (3) Lymphadenopathy Code(s): R59.1 - GENERALIZED ENLARGED LYMPH NODES (4) Renal insufficiency Code(s): N28.9 - DISORDER OF KIDNEY AND URETER, UNSPECIFIED Assessment/Plan Current Medications Generic Name Dose Route Start Last Admin Trade Name Freq PRN Reason Stop Dose Admin Acetaminophen 650 mg 05/09/17 21:58 05/10/17 16:43 Tylenol - PO 650 mg Q6H PRN Administration FEVER OR PAIN Amlodipine Besylate 10 mg 05/10/17 10:00 05/13/17 10:24 Norvasc - PO 10 mg DAILY [facility] Administration Aspirin 81 mg 05/10/17 10:00 05/13/17 10:24 Ecotrin - PO 81 mg DAILY [facility] Administration Atorvastatin Calcium 20 mg 05/11/17 22:00 05/12/17 21:53 Lipitor - PO 20 mg HS [facility] Administration Collagenase 1 applic 05/10/17 21:00 05/13/17 14:15 Santyl - TP 1 applic DAILY [facility] Administration Docusate Sodium 100 mg 05/09/17 21:58 Colace - PO Q8H PRN CONSTIPATION Heparin Sodium (Porcine) 5,000 unit 05/09/17 22:00 05/13/17 10:24 Heparin - SQ 5,000 unit BID [facility] Administration Sodium Chloride 1,000 mls @ 42 mls/hr 05/10/17 18:45 05/12/17 21:53 Normal Saline - IV 42 mls/hr ASD[facility] Administration Insulin Aspart 1 vial 05/09/17 22:00 05/13/17 17:09 Novolog Vial Sliding Scale - SQ Not Given ACHS [facility] Protocol Insulin Detemir 20 units 05/09/17 22:00 05/12/17 21:53 Levemir Vial SQ Not Given HS [facility] Losartan Potassium 50 mg 05/10/17 10:00 05/13/17 10:24 Cozaar - PO 50 mg DAILY [facility] Administration Morphine Sulfate 4 mg 05/10/17 11:42 05/13/17 13:34 Morphine Injection - IVPUSH 4 mg Q6H PRN Administration PAIN Oxycodone HCl 5 mg 05/09/17 21:58 05/12/17 14:33 Roxicodone - PO 5 mg Q6H PRN Administration PAIN Piperacillin Sod/Tazobactam Sod 3.375 gm 05/10/17 12:15 05/13/17 17:12 Zosyn 3.375gm Ivpb (Pre-Docked) IVPB 3.375 gm Q8H-IV [facility] Administration Protocol Vancomycin HCl 1,000 mg 05/13/17 14:00 05/13/17 14:14 Vancomycin (Pre-Docked) IVPB 1,000 mg DAILY@1400 [facility] Administration Protocol Laboratory Tests 05/13/17 10:30 Random Vancomycin 8.2 Impression 1. CKD 2. Inguinal lymphadenopathy 3. DEYSI 4. DM 5. HTN 6. DFU Plan - cont fluids - monitor vanco levels - repeat lab in am - abx per ID - wound care to foot - cont with losartan Dr Matthews
--- NOTE | 2017-05-13 19:53 | PN ---
Progress Note, Physician Chief Complaint: RIGHT FOOT DIABETIC ULCER WITH OSTEOMYELITIS History of Present Illness: RLE EDEMA, WARM TO TOUCH, PAIN ON MOVEMENT. - Current Medication List Current Medications: Active Medications Acetaminophen (Tylenol -) 650 mg PO Q6H PRN PRN Reason: FEVER OR PAIN Last Admin: 05/10/17 16:43 Dose: 650 mg Amlodipine Besylate (Norvasc -) 10 mg PO DAILY [facility] Last Admin: 05/13/17 10:24 Dose: 10 mg Aspirin (Ecotrin -) 81 mg PO DAILY [facility] Last Admin: 05/13/17 10:24 Dose: 81 mg Atorvastatin Calcium (Lipitor -) 20 mg PO HS [facility] Last Admin: 05/12/17 21:53 Dose: 20 mg Collagenase (Santyl -) 1 applic TP DAILY [facility] Last Admin: 05/13/17 14:15 Dose: 1 applic Docusate Sodium (Colace -) 100 mg PO Q8H PRN PRN Reason: CONSTIPATION Heparin Sodium (Porcine) (Heparin -) 5,000 unit SQ BID [facility] Last Admin: 05/13/17 10:24 Dose: 5,000 unit Sodium Chloride (Normal Saline -) 1,000 mls @ 42 mls/hr IV ASDIR [facility] Last Admin: 05/12/17 21:53 Dose: 42 mls/hr Insulin Aspart (Novolog Vial Sliding Scale -) 1 vial SQ ACHS [facility] PRN Reason: Protocol Last Admin: 05/13/17 17:09 Dose: Not Given Insulin Detemir (Levemir Vial) 20 units SQ HS [facility] Last Admin: 05/12/17 21:53 Dose: Not Given Losartan Potassium (Cozaar -) 50 mg PO DAILY [facility] Last Admin: 05/13/17 10:24 Dose: 50 mg Morphine Sulfate (Morphine Injection -) 4 mg IVPUSH Q6H PRN PRN Reason: PAIN Last Admin: 05/13/17 13:34 Dose: 4 mg Oxycodone HCl (Roxicodone -) 5 mg PO Q6H PRN PRN Reason: PAIN Last Admin: 05/12/17 14:33 Dose: 5 mg Piperacillin Sod/Tazobactam Sod (Zosyn 3.375gm Ivpb (Pre-Docked)) 3.375 gm IVPB Q8H-IV [facility] PRN Reason: Protocol Last Admin: 05/13/17 17:12 Dose: 3.375 gm Vancomycin HCl (Vancomycin (Pre-Docked)) 1,000 mg IVPB DAILY@1400 [facility] PRN Reason: Protocol Last Admin: 05/13/17 14:14 Dose: 1,000 mg - Objective Vital Signs: Vital Signs Temperature 98.0 F 05/13/17 13:41 Pulse Rate 93 H 05/13/17 13:41 Respiratory Rate 18 05/13/17 13:41 Blood Pressure 141/95 05/13/17 13:41 O2 Sat by Pulse Oximetry (%) 97 05/13/17 09:00 Constitutional: Yes: Well Nourished, No Distress, Calm Cardiovascular: Yes: Regular Rate and Rhythm Respiratory: Yes: Regular Gastrointestinal: Yes: Normal Bowel Sounds Musculoskeletal: Yes: Muscle Pain (RLE) Edema: Yes Edema: RLE: 1+ Peripheral Pulses WNL: Yes Wound/Incision: Yes: Dressing Dry and Intact Neurological: Yes: Alert, Oriented Psychiatric: Yes: Alert, Oriented Labs: CBC, BMP 05/12/17 06:20 05/13/17 10:36 Problem List - Problems (1) Diabetic foot ulcer Assessment/Plan: PATIENT STATES THAT HE CUTS HIS OWN NAILS OFF AT TIMES AND PULLS OFF ANY HANGING NAILS HIMSELF. Code(s): E11.621 - TYPE 2 DIABETES MELLITUS WITH FOOT ULCER L97.509 - NON-PRESSURE CHRONIC ULCER OTH PRT UNSP FOOT W UNSP SEVERITY Qualifiers: Diabetic foot ulcer location: heel Diabetes mellitus type: type 1 Laterality: right Non-pressure ulcer stage: with fat layer exposed Qualified Code(s): E10.621 - Type 1 diabetes mellitus with foot ulcer; L97.411 - Non-pressure chronic ulcer of right heel and midfoot limited to breakdown of skin (2) Osteomyelitis Assessment/Plan: MAY NEED REPEAT DEBRIDEMENT. WILL NEED 6 WEEKS OF ABX. PAIN MANAGEMENT Code(s): M86.9 - OSTEOMYELITIS, UNSPECIFIED Qualifiers: Osteomyelitis location: ankle Laterality: right (3) Renal insufficiency Assessment/Plan: REPEAT LABS, IVF Code(s): N28.9 - DISORDER OF KIDNEY AND URETER, UNSPECIFIED (4) Diabetes mellitus, insulin dependent (IDDM), uncontrolled Assessment/Plan: HAS [employer] CONTINUOUS INSULIN PUMP. HGA1C AT 8.8, UNCONTROLLED AT THIS TIME. Code(s): E10.65 - TYPE 1 DIABETES MELLITUS WITH HYPERGLYCEMIA Qualifiers: Diabetes mellitus complication detail: with foot ulcer Assessment/Plan MAY NEED REPEAT DEBRIDEMENT. WILL NEED 6 WEEKS OF ABX. PAIN MANAGEMENT REPEAT LABS
[2017-05-13] MEDS: ATORVASTATIN CA 20 MG TABLET (FP) PO SCH (22:17)
[2017-05-13] MEDS: INSULIN DETEMIR 100 UNITS/ML MDV SQ SCH (22:17)
[2017-05-13] MEDS: SODIUM CHLORIDE 1,000 ML IV SCH (22:29)
[2017-05-14] MEDS: PIPERACILLIN/TAZOB 3.375 GM/50 ML PRE-DOCKED IVPB SCH ×3 (01:54→17:47)
[2017-05-14] MEDS: INSULIN SLIDING SCALE (NOVOLOG) 1 VIAL SQ SCH ×4 (06:05→22:33)
[2017-05-14 07:47] LABS: BASOPHIL 1.8 % (0-2.0); EOSINOPHIL 7.1 % (0-4.5); MCH 27.9 pg (25.7-33.7); MCHC 33.6 g/dl (32.0-35.9); MEAN CELL VOLUME 82.9 fl (80-96); MEAN PLT VOLUME 7.5 fl (7.5-11.1); NEUTROPHILS 62.4 % (42.8-82.8); PLATELET COUNT 337 K/MM3 (134-434); RDW 12.3 % (11.9-15.9); WHITE BLOOD COUNT 8.8 K/mm3 (4.0-10.0)
[2017-05-14 08:08] LABS: ALBUMIN 2.4 g/dl (3.4-5.0); CALCIUM 8.4 mg/dL (8.5-10.1)
[2017-05-14 08:11] LABS: BILIRUBIN,TOTAL 0.4 mg/dL (0.2-1.0); COCKROFT - GAULT 80.39; CREATININE 1.9 mg/dL (0.7-1.3); TOT PROT 7.9 g/dl (6.4-8.2)
[2017-05-14] MEDS: amLODIPine BESYLATE 10 MG TABLET (FP) PO SCH (09:43)
[2017-05-14] MEDS: LOSARTAN POTASSIUM 50 MG TABLET (FP) PO SCH (09:43)
[2017-05-14] MEDS: HEPARIN NA (PORCINE) 5,000 UNITS/ML 1ML VIAL SQ SCH ×2 (09:44→22:32)
[2017-05-14] MEDS: ASPIRIN COATED 81 MG TABLET.EC PO SCH (09:44)
[2017-05-14] MEDS: COLLAGENASE CLOSTRIDIUM HIST. 30 GRAMS TUBE TP SCH (09:45)
--- NOTE | 2017-05-14 10:28 | PN ---
Progress Note, Physician Chief Complaint: RIGHT FOOT DIABETIC ULCER WITH OSTEOMYELITIS History of Present Illness: RLE EDEMA, WARM TO TOUCH, PAIN ON MOVEMENT. - Current Medication List Current Medications: Active Medications Acetaminophen (Tylenol -) 650 mg PO Q6H PRN PRN Reason: FEVER OR PAIN Last Admin: 05/10/17 16:43 Dose: 650 mg Amlodipine Besylate (Norvasc -) 10 mg PO DAILY [facility] Last Admin: 05/14/17 09:43 Dose: 10 mg Aspirin (Ecotrin -) 81 mg PO DAILY [facility] Last Admin: 05/14/17 09:44 Dose: 81 mg Atorvastatin Calcium (Lipitor -) 20 mg PO HS [facility] Last Admin: 05/13/17 22:17 Dose: 20 mg Collagenase (Santyl -) 1 applic TP DAILY [facility] Last Admin: 05/14/17 09:45 Dose: 1 applic Docusate Sodium (Colace -) 100 mg PO Q8H PRN PRN Reason: CONSTIPATION Heparin Sodium (Porcine) (Heparin -) 5,000 unit SQ BID [facility] Last Admin: 05/14/17 09:44 Dose: 5,000 unit Sodium Chloride (Normal Saline -) 1,000 mls @ 42 mls/hr IV ASDIR [facility] Last Admin: 05/13/17 22:29 Dose: 42 mls/hr Insulin Aspart (Novolog Vial Sliding Scale -) 1 vial SQ ACHS [facility] PRN Reason: Protocol Last Admin: 05/14/17 06:05 Dose: Not Given Losartan Potassium (Cozaar -) 50 mg PO DAILY [facility] Last Admin: 05/14/17 09:43 Dose: 50 mg Morphine Sulfate (Morphine Injection -) 4 mg IVPUSH Q6H PRN PRN Reason: PAIN Last Admin: 05/13/17 22:15 Dose: 4 mg Oxycodone HCl (Roxicodone -) 5 mg PO Q6H PRN PRN Reason: PAIN Last Admin: 05/12/17 14:33 Dose: 5 mg Piperacillin Sod/Tazobactam Sod (Zosyn 3.375gm Ivpb (Pre-Docked)) 3.375 gm IVPB Q8H-IV [facility] PRN Reason: Protocol Last Admin: 05/14/17 09:43 Dose: 3.375 gm Vancomycin HCl (Vancomycin (Pre-Docked)) 1,000 mg IVPB DAILY@1400 [facility] PRN Reason: Protocol Last Admin: 05/13/17 14:14 Dose: 1,000 mg - Objective Vital Signs: Vital Signs Temperature 98.3 F 05/14/17 10:00 Pulse Rate 82 05/14/17 10:00 Respiratory Rate 18 05/14/17 10:00 Blood Pressure 148/82 05/14/17 10:00 O2 Sat by Pulse Oximetry (%) 97 05/14/17 09:00 Constitutional: Yes: Well Nourished, No Distress, Calm Cardiovascular: Yes: Regular Rate and Rhythm, Murmur Respiratory: Yes: Regular Gastrointestinal: Yes: Normal Bowel Sounds Edema: Yes Edema: RLE: Trace Wound/Incision: Yes: Dressing Dry and Intact Neurological: Yes: Alert, Oriented Labs: CBC, BMP 05/14/17 06:45 05/14/17 06:45 Problem List - Problems (1) Diabetic foot ulcer Assessment/Plan: PATIENT STATES THAT HE CUTS HIS OWN NAILS OFF AT TIMES AND PULLS OFF ANY HANGING NAILS HIMSELF. Code(s): E11.621 - TYPE 2 DIABETES MELLITUS WITH FOOT ULCER L97.509 - NON-PRESSURE CHRONIC ULCER OTH PRT UNSP FOOT W UNSP SEVERITY Qualifiers: Diabetic foot ulcer location: heel Diabetes mellitus type: type 1 Laterality: right Non-pressure ulcer stage: with fat layer exposed Qualified Code(s): E10.621 - Type 1 diabetes mellitus with foot ulcer; L97.411 - Non-pressure chronic ulcer of right heel and midfoot limited to breakdown of skin (2) Osteomyelitis Assessment/Plan: MAY NEED REPEAT DEBRIDEMENT. WILL NEED 6 WEEKS OF ABX. PAIN MANAGEMENT Code(s): M86.9 - OSTEOMYELITIS, UNSPECIFIED Qualifiers: Osteomyelitis location: ankle Laterality: right (3) Renal insufficiency Assessment/Plan: REPEAT LABS, IVF Code(s): N28.9 - DISORDER OF KIDNEY AND URETER, UNSPECIFIED (4) Diabetes mellitus, insulin dependent (IDDM), uncontrolled Assessment/Plan: HAS [employer] CONTINUOUS INSULIN PUMP. HGA1C AT 8.8, UNCONTROLLED AT THIS TIME. Code(s): E10.65 - TYPE 1 DIABETES MELLITUS WITH HYPERGLYCEMIA Qualifiers: Diabetes mellitus complication detail: with foot ulcer Assessment/Plan REPEAT DEBRIDEMENT IN AM. WILL NEED 6 WEEKS OF ABX. PAIN MANAGEMENT REPEAT LABS PICC AND D/C TO REHAB ONCE STABLE.
--- NOTE | 2017-05-14 12:34 | PN ---
Progress Note (short form) - Note Progress Note: Podiatry F/U: Seen and evaluated at bedside, NAD. Pain slowly improving, denies F/V/N/C/SOB/ CP. AFebrile, VSS. NATALIIA: R foot: posterolateral heel ulcer with fibrotic base, mild periwound erythema improving, no purulence, no fluctuance, no streaking cellulitis, no soft tissue crepitus. Moderate tenderness to palpation. Pedal pulses palpable bilaterally , TG wnl, CFT brisk to all toes. Sub-metatarsal ulcer with granular base, hyperkeratotic borders, no deep probing, no purulence, no fluctuance. WBC: 8.8 ESR: 108 Blood Cx: no growth x 96 hrs Imp: 47 year old DM M with R heel DM ulcer 1. Excisional debridement at bedside using sterile scissors to subcutaneous tissue. Formal wound culture obtained. 2. Will need to be treated with IV abx. 3. Discussed with patient about importance of compliance and minimizing WB activity. 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 I discussed that his condition may worsen if he continues to work like that. 4. Continue local wound care Rx with santyl. Mary Jane Landin DPM
[2017-05-14] MEDS: VANCOMYCIN 1 GRAM (PRE-DOCKED) 1,000 MG/250 ML BAG IVPB SCH (14:55)
--- NOTE | 2017-05-14 16:53 | PN ---
Progress Note, Physician History of Present Illness: Pt seen and examined at bedside. He has no complaints. He denies dysuria. - Current Medication List Current Medications: Active Medications Acetaminophen (Tylenol -) 650 mg PO Q6H PRN PRN Reason: FEVER OR PAIN Last Admin: 05/10/17 16:43 Dose: 650 mg Amlodipine Besylate (Norvasc -) 10 mg PO DAILY [facility] Last Admin: 05/14/17 09:43 Dose: 10 mg Aspirin (Ecotrin -) 81 mg PO DAILY [facility] Last Admin: 05/14/17 09:44 Dose: 81 mg Atorvastatin Calcium (Lipitor -) 20 mg PO HS [facility] Last Admin: 05/13/17 22:17 Dose: 20 mg Collagenase (Santyl -) 1 applic TP DAILY [facility] Last Admin: 05/14/17 09:45 Dose: 1 applic Docusate Sodium (Colace -) 100 mg PO Q8H PRN PRN Reason: CONSTIPATION Heparin Sodium (Porcine) (Heparin -) 5,000 unit SQ BID [facility] Last Admin: 05/14/17 09:44 Dose: 5,000 unit Sodium Chloride (Normal Saline -) 1,000 mls @ 42 mls/hr IV ASDIR [facility] Last Admin: 05/13/17 22:29 Dose: 42 mls/hr Insulin Aspart (Novolog Vial Sliding Scale -) 1 vial SQ ACHS [facility] PRN Reason: Protocol Last Admin: 05/14/17 12:17 Dose: Not Given Losartan Potassium (Cozaar -) 50 mg PO DAILY [facility] Last Admin: 05/14/17 09:43 Dose: 50 mg Morphine Sulfate (Morphine Injection -) 4 mg IVPUSH Q6H PRN PRN Reason: PAIN Last Admin: 05/13/17 22:15 Dose: 4 mg Oxycodone HCl (Roxicodone -) 5 mg PO Q6H PRN PRN Reason: PAIN Last Admin: 05/12/17 14:33 Dose: 5 mg Piperacillin Sod/Tazobactam Sod (Zosyn 3.375gm Ivpb (Pre-Docked)) 3.375 gm IVPB Q8H-IV [place] PRN Reason: Protocol Last Admin: 05/14/17 09:43 Dose: 3.375 gm Vancomycin HCl (Vancomycin (Pre-Docked)) 1,000 mg IVPB DAILY@1400 [place] PRN Reason: Protocol Last Admin: 05/14/17 14:55 Dose: 1,000 mg - Objective Vital Signs: Vital Signs Temperature 98.5 F 05/14/17 14:00 Pulse Rate 85 05/14/17 14:00 Respiratory Rate 20 05/14/17 14:00 Blood Pressure 151/93 05/14/17 14:00 O2 Sat by Pulse Oximetry (%) 97 05/14/17 09:00 Constitutional: Yes: Calm Eyes: Yes: Conjunctiva Clear HENT: Yes: Atraumatic Neck: Yes: Supple Cardiovascular: Yes: S1, S2 Respiratory: Yes: CTA Bilaterally Gastrointestinal: Yes: Soft Genitourinary: Yes: WNL Edema: Yes Edema: RLE: Trace Neurological: Yes: Oriented Psychiatric: Yes: Oriented Labs: CBC, BMP 05/14/17 06:45 05/14/17 06:45 Problem List - Problems (1) Diabetic foot ulcer Code(s): E11.621 - TYPE 2 DIABETES MELLITUS WITH FOOT ULCER L97.509 - NON-PRESSURE CHRONIC ULCER OTH PRT UNSP FOOT W UNSP SEVERITY Qualifiers: Diabetic foot ulcer location: heel Diabetes mellitus type: type 1 Laterality: right Non-pressure ulcer stage: with fat layer exposed Qualified Code(s): E10.621 - Type 1 diabetes mellitus with foot ulcer; L97.411 - Non-pressure chronic ulcer of right heel and midfoot limited to breakdown of skin (2) Cellulitis of foot Code(s): L03.119 - CELLULITIS OF UNSPECIFIED PART OF LIMB (3) Lymphadenopathy Code(s): R59.1 - GENERALIZED ENLARGED LYMPH NODES (4) Renal insufficiency Code(s): N28.9 - DISORDER OF KIDNEY AND URETER, UNSPECIFIED Assessment/Plan Current Medications Generic Name Dose Route Start Last Admin Trade Name Freq PRN Reason Stop Dose Admin Acetaminophen 650 mg 05/09/17 21:58 05/10/17 16:43 Tylenol - PO 650 mg Q6H PRN Administration FEVER OR PAIN Amlodipine Besylate 10 mg 05/10/17 10:00 05/14/17 09:43 Norvasc - PO 10 mg DAILY [place] Administration Aspirin 81 mg 05/10/17 10:00 05/14/17 09:44 Ecotrin - PO 81 mg DAILY [place] Administration Atorvastatin Calcium 20 mg 05/11/17 22:00 05/13/17 22:17 Lipitor - PO 20 mg HS [place] Administration Collagenase 1 applic 05/10/17 21:00 05/14/17 09:45 Santyl - TP 1 applic DAILY [place] Administration Docusate Sodium 100 mg 05/09/17 21:58 Colace - PO Q8H PRN CONSTIPATION Heparin Sodium (Porcine) 5,000 unit 05/09/17 22:00 05/14/17 09:44 Heparin - SQ 5,000 unit BID [place] Administration Sodium Chloride 1,000 mls @ 42 mls/hr 05/10/17 18:45 05/13/17 22:29 Normal Saline - IV 42 mls/hr ASDIR [place] Administration Insulin Aspart 1 vial 05/09/17 22:00 05/14/17 12:17 Novolog Vial Sliding Scale - SQ Not Given ACHS [facility] Protocol Losartan Potassium 50 mg 05/10/17 10:00 05/14/17 09:43 Cozaar - PO 50 mg DAILY [place] Administration Morphine Sulfate 4 mg 05/10/17 11:42 05/13/17 22:15 Morphine Injection - IVPUSH 4 mg Q6H PRN Administration PAIN Oxycodone HCl 5 mg 05/09/17 21:58 05/12/17 14:33 Roxicodone - PO 5 mg Q6H PRN Administration PAIN Piperacillin Sod/Tazobactam Sod 3.375 gm 05/10/17 12:15 05/14/17 09:43 Zosyn 3.375gm Ivpb (Pre-Docked) IVPB 3.375 gm Q8H-IV [place] Administration Protocol Vancomycin HCl 1,000 mg 05/13/17 14:00 05/14/17 14:55 Vancomycin (Pre-Docked) IVPB 1,000 mg DAILY@1400 [place] Administration Protocol Impression 1. CKD 2. Inguinal lymphadenopathy 3. DEYSI 4. DM 5. HTN 6. DFU Plan - renal function is stable - cont current meds - he will need outpt follow up - cont fluids - monitor vanco levels - wound care to foot - cont with losartan Dr Matthews
[2017-05-14] MEDS: morphine CARPU-JECT 4 MG/1 ML DISP.SYRIN IVPUSH PRN (22:31)
[2017-05-14] MEDS: SODIUM CHLORIDE 1,000 ML IV SCH (22:32)
[2017-05-14] MEDS: ATORVASTATIN CA 20 MG TABLET (FP) PO SCH (22:33)
[2017-05-15] MEDS: PIPERACILLIN/TAZOB 3.375 GM/50 ML PRE-DOCKED IVPB SCH ×3 (01:46→18:12)
[2017-05-15] MEDS: INSULIN SLIDING SCALE (NOVOLOG) 1 VIAL SQ SCH ×4 (06:02→21:55)
[2017-05-15] MEDS: ASPIRIN COATED 81 MG TABLET.EC PO SCH (09:41)
[2017-05-15] MEDS: amLODIPine BESYLATE 10 MG TABLET (FP) PO SCH (09:41)
[2017-05-15] MEDS: LOSARTAN POTASSIUM 50 MG TABLET (FP) PO SCH (09:41)
[2017-05-15] MEDS: HEPARIN NA (PORCINE) 5,000 UNITS/ML 1ML VIAL SQ SCH ×2 (09:42→21:36)
[2017-05-15] MEDS: COLLAGENASE CLOSTRIDIUM HIST. 30 GRAMS TUBE TP SCH (09:42)
[2017-05-15] MEDS ORDERED: PICC LINE 8 ML FLUSH PROTOCOL IVPUSH PRN (10:01)
--- NOTE | 2017-05-15 11:26 | PN ---
Progress Note (short form) - Note Progress Note: complains of right thigh pain unchanged right adenopathy unchanged heel debrided at bedside by podiatry Vital Signs Period Temp Pulse Resp BP Sys/Banuelos Pulse Ox Last 24 Hr 98.0 F-98.7 F 77-89 18-20 147-156/81-93 cor-rrr llungs clear abd soft,nt ext _right inguinal adenopathy right thigh tenderness (less) still with brownish drainage foulsmelling drainage from the heel CBC, BMP 05/14/17 06:45 05/14/17 06:45 Microbiology 05/09/17 19:17 Blood - Peripheral Venous Blood Culture - Final NO GROWTH AFTER 5 DAYS INCUBATION 05/09/17 19:17 Blood - Peripheral Venous Blood Culture - Final NO GROWTH AFTER 5 DAYS INCUBATION a/p diabetic ulcer osteomyelitis dm ckd continue vanco/zosyn vanco level today d/w Dr Thompson, for repeat bedside debridement today f/u cultures repeat esr/crp hopefully home thursday with picc line Problem List - Problems (1) Diabetic infection of right foot Code(s): E11.69 - TYPE 2 DIABETES MELLITUS WITH OTHER SPECIFIED COMPLICATION L08.9 - LOCAL INFECTION OF THE SKIN AND SUBCUTANEOUS TISSUE, UNSP (2) Osteomyelitis Code(s): M86.9 - OSTEOMYELITIS, UNSPECIFIED Qualifiers: Osteomyelitis location: ankle Laterality: right (3) Renal insufficiency Code(s): N28.9 - DISORDER OF KIDNEY AND URETER, UNSPECIFIED
[2017-05-15] MEDS: VANCOMYCIN 1 GRAM (PRE-DOCKED) 1,000 MG/250 ML BAG IVPB SCH (14:47)
[2017-05-15] MEDS: morphine CARPU-JECT 4 MG/1 ML DISP.SYRIN IVPUSH PRN ×2 (14:47→22:04)
--- NOTE | 2017-05-15 15:42 | PN ---
Progress Note, Physician History of Present Illness: Pt has no complaints. Denies dysuria. - Current Medication List Current Medications: Active Medications Acetaminophen (Tylenol -) 650 mg PO Q6H PRN PRN Reason: FEVER OR PAIN Last Admin: 05/10/17 16:43 Dose: 650 mg Amlodipine Besylate (Norvasc -) 10 mg PO DAILY [facility] Last Admin: 05/15/17 09:41 Dose: 10 mg Aspirin (Ecotrin -) 81 mg PO DAILY [facility] Last Admin: 05/15/17 09:41 Dose: 81 mg Atorvastatin Calcium (Lipitor -) 20 mg PO HS [facility] Last Admin: 05/14/17 22:33 Dose: 20 mg Collagenase (Santyl -) 1 applic TP DAILY [facility] Last Admin: 05/15/17 09:42 Dose: 1 applic Docusate Sodium (Colace -) 100 mg PO Q8H PRN PRN Reason: CONSTIPATION Heparin Sodium (Porcine) (Heparin -) 5,000 unit SQ BID [facility] Last Admin: 05/15/17 09:42 Dose: 5,000 unit IV Flush (Picc Line Flush) 8 ml IVPUSH PRN PRN PRN Reason: Protocol Sodium Chloride (Normal Saline -) 1,000 mls @ 42 mls/hr IV ASDIR [facility] Last Admin: 05/14/17 22:32 Dose: 42 mls/hr Insulin Aspart (Novolog Vial Sliding Scale -) 1 vial SQ ACHS [place] PRN Reason: Protocol Last Admin: 05/15/17 06:02 Dose: Not Given Losartan Potassium (Cozaar -) 50 mg PO DAILY [facility] Last Admin: 05/15/17 09:41 Dose: 50 mg Morphine Sulfate (Morphine Injection -) 4 mg IVPUSH Q6H PRN PRN Reason: PAIN Last Admin: 05/15/17 14:47 Dose: 4 mg Oxycodone HCl (Roxicodone -) 5 mg PO Q6H PRN PRN Reason: PAIN Last Admin: 05/12/17 14:33 Dose: 5 mg Piperacillin Sod/Tazobactam Sod (Zosyn 3.375gm Ivpb (Pre-Docked)) 3.375 gm IVPB Q8H-IV [place] PRN Reason: Protocol Last Admin: 05/15/17 09:41 Dose: 3.375 gm Vancomycin HCl (Vancomycin (Pre-Docked)) 1,000 mg IVPB DAILY@1400 [place] PRN Reason: Protocol Last Admin: 05/15/17 14:47 Dose: 1,000 mg - Objective Vital Signs: Vital Signs Temperature 98.7 F 05/15/17 06:00 Pulse Rate 77 05/15/17 06:00 Respiratory Rate 18 05/15/17 06:00 Blood Pressure 147/81 05/15/17 06:00 O2 Sat by Pulse Oximetry (%) 97 05/14/17 09:00 Constitutional: Yes: Calm Eyes: Yes: Conjunctiva Clear HENT: Yes: Atraumatic Neck: Yes: Supple Cardiovascular: Yes: S1, S2 Respiratory: Yes: CTA Bilaterally Gastrointestinal: Yes: Soft Genitourinary: Yes: WNL Edema: RLE: Trace Neurological: Yes: Oriented Psychiatric: Yes: Oriented Labs: CBC, BMP 05/14/17 06:45 05/14/17 06:45 Problem List - Problems (1) Diabetic foot ulcer Code(s): E11.621 - TYPE 2 DIABETES MELLITUS WITH FOOT ULCER L97.509 - NON-PRESSURE CHRONIC ULCER OTH PRT UNSP FOOT W UNSP SEVERITY Qualifiers: Diabetic foot ulcer location: heel Diabetes mellitus type: type 1 Laterality: right Non-pressure ulcer stage: with fat layer exposed Qualified Code(s): E10.621 - Type 1 diabetes mellitus with foot ulcer; L97.411 - Non-pressure chronic ulcer of right heel and midfoot limited to breakdown of skin (2) Cellulitis of foot Code(s): L03.119 - CELLULITIS OF UNSPECIFIED PART OF LIMB (3) Lymphadenopathy Code(s): R59.1 - GENERALIZED ENLARGED LYMPH NODES (4) Renal insufficiency Code(s): N28.9 - DISORDER OF KIDNEY AND URETER, UNSPECIFIED Assessment/Plan Current Medications Generic Name Dose Route Start Last Admin Trade Name Freq PRN Reason Stop Dose Admin Acetaminophen 650 mg 05/09/17 21:58 05/10/17 16:43 Tylenol - PO 650 mg Q6H PRN Administration FEVER OR PAIN Amlodipine Besylate 10 mg 05/10/17 10:00 05/15/17 09:41 Norvasc - PO 10 mg DAILY [place] Administration Aspirin 81 mg 05/10/17 10:00 05/15/17 09:41 Ecotrin - PO 81 mg DAILY [place] Administration Atorvastatin Calcium 20 mg 05/11/17 22:00 05/14/17 22:33 Lipitor - PO 20 mg HS [place] Administration Collagenase 1 applic 05/10/17 21:00 05/15/17 09:42 Santyl - TP 1 applic DAILY [place] Administration Docusate Sodium 100 mg 05/09/17 21:58 Colace - PO Q8H PRN CONSTIPATION Heparin Sodium (Porcine) 5,000 unit 05/09/17 22:00 05/15/17 09:42 Heparin - SQ 5,000 unit BID [place] Administration IV Flush 8 ml 05/15/17 10:01 Picc Line Flush IVPUSH PRN PRN Protocol Sodium Chloride 1,000 mls @ 42 mls/hr 05/10/17 18:45 05/14/17 22:32 Normal Saline - IV 42 mls/hr ASDIR [place] Administration Insulin Aspart 1 vial 05/09/17 22:00 05/15/17 06:02 Novolog Vial Sliding Scale - SQ Not Given ACHS [facility] Protocol Losartan Potassium 50 mg 05/10/17 10:00 05/15/17 09:41 Cozaar - PO 50 mg DAILY [place] Administration Morphine Sulfate 4 mg 05/14/17 22:26 05/15/17 14:47 Morphine Injection - IVPUSH 4 mg Q6H PRN Administration PAIN Oxycodone HCl 5 mg 05/09/17 21:58 05/12/17 14:33 Roxicodone - PO 5 mg Q6H PRN Administration PAIN Piperacillin Sod/Tazobactam Sod 3.375 gm 05/10/17 12:15 05/15/17 09:41 Zosyn 3.375gm Ivpb (Pre-Docked) IVPB 3.375 gm Q8H-IV [place] Administration Protocol Vancomycin HCl 1,000 mg 05/13/17 14:00 05/15/17 14:47 Vancomycin (Pre-Docked) IVPB 1,000 mg DAILY@1400 [place] Administration Protocol Impression 1. CKD 2. Inguinal lymphadenopathy 3. DEYSI 4. DM 5. HTN 6. DFU Plan - no new labs - monitor vanco levels - cont fluids - repeat labs in am - wound care to foot - cont with losartan - outpt follow up Dr Matthews
--- NOTE | 2017-05-15 18:07 | PN ---
Progress Note, Physician - Current Medication List Current Medications: Active Medications Acetaminophen (Tylenol -) 650 mg PO Q6H PRN PRN Reason: FEVER OR PAIN Last Admin: 05/10/17 16:43 Dose: 650 mg Amlodipine Besylate (Norvasc -) 10 mg PO DAILY [facility] Last Admin: 05/15/17 09:41 Dose: 10 mg Aspirin (Ecotrin -) 81 mg PO DAILY [facility] Last Admin: 05/15/17 09:41 Dose: 81 mg Atorvastatin Calcium (Lipitor -) 20 mg PO HS [facility] Last Admin: 05/14/17 22:33 Dose: 20 mg Collagenase (Santyl -) 1 applic TP DAILY [facility] Last Admin: 05/15/17 09:42 Dose: 1 applic Docusate Sodium (Colace -) 100 mg PO Q8H PRN PRN Reason: CONSTIPATION Heparin Sodium (Porcine) (Heparin -) 5,000 unit SQ BID [facility] Last Admin: 05/15/17 09:42 Dose: 5,000 unit IV Flush (Picc Line Flush) 8 ml IVPUSH PRN PRN PRN Reason: Protocol Sodium Chloride (Normal Saline -) 1,000 mls @ 42 mls/hr IV ASDIR [facility] Last Admin: 05/14/17 22:32 Dose: 42 mls/hr Insulin Aspart (Novolog Vial Sliding Scale -) 1 vial SQ ACHS [facility] PRN Reason: Protocol Last Admin: 05/15/17 16:38 Dose: Not Given Losartan Potassium (Cozaar -) 50 mg PO DAILY [facility] Last Admin: 05/15/17 09:41 Dose: 50 mg Morphine Sulfate (Morphine Injection -) 4 mg IVPUSH Q6H PRN PRN Reason: PAIN Last Admin: 05/15/17 14:47 Dose: 4 mg Oxycodone HCl (Roxicodone -) 5 mg PO Q6H PRN PRN Reason: PAIN Last Admin: 05/12/17 14:33 Dose: 5 mg Piperacillin Sod/Tazobactam Sod (Zosyn 3.375gm Ivpb (Pre-Docked)) 3.375 gm IVPB Q8H-IV [place] PRN Reason: Protocol Last Admin: 05/15/17 09:41 Dose: 3.375 gm Vancomycin HCl (Vancomycin (Pre-Docked)) 1,000 mg IVPB DAILY@1400 [facility] PRN Reason: Protocol Last Admin: 05/15/17 14:47 Dose: 1,000 mg - Objective Vital Signs: Vital Signs Temperature 98.7 F 05/15/17 06:00 Pulse Rate 77 05/15/17 06:00 Respiratory Rate 18 05/15/17 06:00 Blood Pressure 147/81 05/15/17 06:00 O2 Sat by Pulse Oximetry (%) 97 05/14/17 09:00 Constitutional: Yes: Well Nourished, No Distress, Calm Cardiovascular: Yes: Regular Rate and Rhythm Respiratory: Yes: Regular Musculoskeletal: Yes: Muscle Pain (RIGHT THIGH) Extremities: Yes: Other (DIABETIC ULCER RIGHT HEEL) Edema: Yes Edema: RLE: Trace Neurological: Yes: Alert, Oriented Psychiatric: Yes: Alert, Oriented Labs: CBC, BMP 05/14/17 06:45 05/14/17 06:45 Problem List - Problems (1) Diabetic foot ulcer Assessment/Plan: PATIENT STATES THAT HE CUTS HIS OWN NAILS OFF AT TIMES AND PULLS OFF ANY HANGING NAILS HIMSELF. AWAITING WOUND CULTURES DEBRIDMENT BY DR CAPELLAN TODAY? PLAN PICC FOR THURSDAY Code(s): E11.621 - TYPE 2 DIABETES MELLITUS WITH FOOT ULCER L97.509 - NON-PRESSURE CHRONIC ULCER OTH PRT UNSP FOOT W UNSP SEVERITY Qualifiers: Diabetic foot ulcer location: heel Diabetes mellitus type: type 1 Laterality: right Non-pressure ulcer stage: with fat layer exposed Qualified Code(s): E10.621 - Type 1 diabetes mellitus with foot ulcer; L97.411 - Non-pressure chronic ulcer of right heel and midfoot limited to breakdown of skin (2) Osteomyelitis Assessment/Plan: WILL NEED 6 WEEKS OF ABX. AWAITING CULTURES TO DECIDE ON ABX PAIN MANAGEMENT Code(s): M86.9 - OSTEOMYELITIS, UNSPECIFIED Qualifiers: Osteomyelitis location: ankle Laterality: right (3) Renal insufficiency Assessment/Plan: REPEAT LABS, IVF Code(s): N28.9 - DISORDER OF KIDNEY AND URETER, UNSPECIFIED (4) Diabetes mellitus, insulin dependent (IDDM), uncontrolled Assessment/Plan: HAS [employer] CONTINUOUS INSULIN PUMP. HGA1C AT 8.8, UNCONTROLLED AT THIS TIME. [employer] INSULIN COVERAGE PROVIDED. Code(s): E10.65 - TYPE 1 DIABETES MELLITUS WITH HYPERGLYCEMIA Qualifiers: Diabetes mellitus complication detail: with foot ulcer Assessment/Plan WILL NEED 6 WEEKS OF ABX. AWAITING WOUND CULTURES DEBRIDMENT BY DR CAPELLAN TODAY? PAIN MANAGEMENT REPEAT LABS PICC AND D/C TO REHAB ONCE STABLE.
[2017-05-15] MEDS: SODIUM CHLORIDE 1,000 ML IV SCH (21:17)
[2017-05-15] MEDS: ATORVASTATIN CA 20 MG TABLET (FP) PO SCH (21:36)
--- NOTE | 2017-05-15 23:13 | PN ---
Progress Note (short form) - Note Progress Note: right knee pain swelling,right foot wound sp wound debridement,afebrile,high sugars,on iv abx Abnormal Lab Results 05/15/17 05/15/17 14:15 14:15 ESR > 130 H C-Reactive Protein 4.2 H D Laboratory Results - last 24 hr 05/15/17 05/15/17 05/15/17 05:43 14:15 14:15 ESR POC Glucometer 118 C-Reactive Protein 4.2 H D Vancomycin Pre-Dose 8.663 05/15/17 05/15/17 05/15/17 14:15 17:39 21:50 ESR > 130 H POC Glucometer 155 218 C-Reactive Protein Vancomycin Pre-Dose Current Active Problems Diabetic foot ulcer (Acute) Diabetic infection of right foot (Acute) Osteomyelitis (Acute) iddm hyperglycemia right knee pain reactive arthritis? plan: bgm,qid insulin pump basal rates adjusted for insulin sensitivity 1:10 gm ration carb counting basal rate max 3.5 u/hr otho consult Problem List - Problems (1) Diabetic foot ulcer Code(s): E11.621 - TYPE 2 DIABETES MELLITUS WITH FOOT ULCER L97.509 - NON-PRESSURE CHRONIC ULCER OTH PRT UNSP FOOT W UNSP SEVERITY Qualifiers: Diabetic foot ulcer location: heel Diabetes mellitus type: type 1 Laterality: right Non-pressure ulcer stage: with fat layer exposed Qualified Code(s): E10.621 - Type 1 diabetes mellitus with foot ulcer; L97.411 - Non-pressure chronic ulcer of right heel and midfoot limited to breakdown of skin (2) Diabetic infection of right foot Code(s): E11.69 - TYPE 2 DIABETES MELLITUS WITH OTHER SPECIFIED COMPLICATION L08.9 - LOCAL INFECTION OF THE SKIN AND SUBCUTANEOUS TISSUE, UNSP (3) Osteomyelitis Code(s): M86.9 - OSTEOMYELITIS, UNSPECIFIED Qualifiers: Osteomyelitis location: ankle Laterality: right (4) Cellulitis of foot Code(s): L03.119 - CELLULITIS OF UNSPECIFIED PART OF LIMB (5) Diabetes mellitus, insulin dependent (IDDM), uncontrolled Code(s): E10.65 - TYPE 1 DIABETES MELLITUS WITH HYPERGLYCEMIA Qualifiers: Diabetes mellitus complication detail: with foot ulcer
[2017-05-16] MEDS: PIPERACILLIN/TAZOB 3.375 GM/50 ML PRE-DOCKED IVPB SCH ×3 (03:01→17:36)
[2017-05-16] MEDS: SODIUM CHLORIDE 1,000 ML IV SCH ×2 (06:09→22:22)
[2017-05-16 07:54] LABS: MCHC 34.2 g/dl (32.0-35.9); MEAN CELL VOLUME 81.8 fl (80-96); MEAN PLT VOLUME 7.2 fl (7.5-11.1); PLATELET COUNT 344 K/MM3 (134-434); RDW 12.5 % (11.9-15.9)
[2017-05-16 08:25] LABS: ALBUMIN 2.5 g/dl (3.4-5.0); ALK PHOS 94 U/L (45-117); ANION GAP 11 (8-16); BILIRUBIN,TOTAL 0.4 mg/dL (0.2-1.0); CALCIUM 8.5 mg/dL (8.5-10.1); CO2 24 mmol/L (21-32); CREATININE 1.8 mg/dL (0.7-1.3); GLUCOSE,RANDOM 99 mg/dL (74-106); SGOT/AST 25 U/L (15-37); SGPT/ALT 31 U/L (12-78); TOT PROT 7.6 g/dl (6.4-8.2)
[2017-05-16 09:47] LABS: METAMYELOCYTE 3 % (0-2); PLATELET ESTIMATE ADEQUATE (NORMAL)
[2017-05-16] MEDS: LIDOCAINE 5% TOPICAL PATCH TP SCH (09:53)
[2017-05-16] MEDS: ASPIRIN COATED 81 MG TABLET.EC PO SCH (09:54)
[2017-05-16] MEDS: HEPARIN NA (PORCINE) 5,000 UNITS/ML 1ML VIAL SQ SCH ×2 (09:55→22:27)
[2017-05-16] MEDS: amLODIPine BESYLATE 10 MG TABLET (FP) PO SCH (09:55)
[2017-05-16] MEDS: LOSARTAN POTASSIUM 50 MG TABLET (FP) PO SCH (09:55)
--- NOTE | 2017-05-16 11:44 | PN ---
Progress Note (short form) - Note Progress Note: RENAL Pt is awake and alert comfortable still having drainage from right lower extremity feels well Last Vital Signs Temp Pulse Resp BP Pulse Ox 98.6 F 79 15 147/76 97 05/16/17 06:00 05/16/17 06:00 05/16/17 06:00 05/16/17 06:00 05/14/17 09:00 lungs clear cvs s1s2 rr abd soft ext +edema right lower extremity neuro a+ox3 CBC, BMP 05/16/17 06:40 05/16/17 06:40 Current Medications Generic Name Dose Route Start Last Admin Trade Name Freq PRN Reason Stop Dose Admin Acetaminophen 650 mg 05/09/17 21:58 05/10/17 16:43 Tylenol - PO 650 mg Q6H PRN Administration FEVER OR PAIN Amlodipine Besylate 10 mg 05/10/17 10:00 05/16/17 09:55 Norvasc - PO 10 mg DAILY [place] Administration Aspirin 81 mg 05/10/17 10:00 05/16/17 09:54 Ecotrin - PO 81 mg DAILY [place] Administration Atorvastatin Calcium 20 mg 05/11/17 22:00 05/15/17 21:36 Lipitor - PO 20 mg HS [place] Administration Collagenase 1 applic 05/10/17 21:00 05/15/17 09:42 Santyl - TP 1 applic DAILY [place] Administration Docusate Sodium 100 mg 05/09/17 21:58 05/15/17 22:05 Colace - PO 100 mg Q8H PRN Administration CONSTIPATION Heparin Sodium (Porcine) 5,000 unit 05/09/17 22:00 05/16/17 09:55 Heparin - SQ 5,000 unit BID [place] Administration IV Flush 8 ml 05/15/17 10:01 Picc Line Flush IVPUSH PRN PRN Protocol Sodium Chloride 1,000 mls @ 42 mls/hr 05/10/17 18:45 05/16/17 06:09 Normal Saline - IV 42 mls/hr ASDIR [place] Administration Lidocaine 1 patch 05/16/17 10:00 05/16/17 09:53 Lidoderm Patch - TP 1 patch DAILY [place] Administration Losartan Potassium 50 mg 05/10/17 10:00 05/16/17 09:55 Cozaar - PO 50 mg DAILY [place] Administration Miscellaneous 1 each 05/16/17 22:00 Lidoderm Patch Removal MC DAILY@2200 [facility] Morphine Sulfate 4 mg 05/14/17 22:26 05/15/17 22:04 Morphine Injection - IVPUSH 4 mg Q6H PRN Administration PAIN Oxycodone HCl 5 mg 05/09/17 21:58 05/12/17 14:33 Roxicodone - PO 5 mg Q6H PRN Administration PAIN Piperacillin Sod/Tazobactam Sod 3.375 gm 05/10/17 12:15 05/16/17 09:53 Zosyn 3.375gm Ivpb (Pre-Docked) IVPB 3.375 gm Q8H-IV [place] Administration Protocol Vancomycin HCl 1,000 mg 05/13/17 14:00 05/15/17 14:47 Vancomycin (Pre-Docked) IVPB 1,000 mg DAILY@1400 [facility] Administration Protocol Impression 1. CKD 2. Inguinal lymphadenopathy probaly due to infection 3. DEYSI 4. DM 5. HTN Plan - monitor vanco levels - cont fluids - repeat labs in am - wound care to foot - cont with losartan - outpt follow up - antibiotics/ I+D MV
[2017-05-16] MEDS: COLLAGENASE CLOSTRIDIUM HIST. 30 GRAMS TUBE TP SCH (13:24)
[2017-05-16] MEDS: VANCOMYCIN 1 GRAM (PRE-DOCKED) 1,000 MG/250 ML BAG IVPB SCH (13:24)
[2017-05-16] MEDS: morphine CARPU-JECT 4 MG/1 ML DISP.SYRIN IVPUSH PRN ×2 (13:24→23:00)
--- NOTE | 2017-05-16 18:50 | PN ---
Progress Note, Physician Chief Complaint: RIGHT FOOT DIABETIC ULCER WITH OSTEOMYELITIS History of Present Illness: RLE EDEMA, WARM TO TOUCH, PAIN ON MOVEMENT. - Current Medication List Current Medications: Active Medications Acetaminophen (Tylenol -) 650 mg PO Q6H PRN PRN Reason: FEVER OR PAIN Last Admin: 05/10/17 16:43 Dose: 650 mg Amlodipine Besylate (Norvasc -) 10 mg PO DAILY [facility] Last Admin: 05/16/17 09:55 Dose: 10 mg Aspirin (Ecotrin -) 81 mg PO DAILY [facility] Last Admin: 05/16/17 09:54 Dose: 81 mg Atorvastatin Calcium (Lipitor -) 20 mg PO HS [facility] Last Admin: 05/15/17 21:36 Dose: 20 mg Collagenase (Santyl -) 1 applic TP DAILY [facility] Last Admin: 05/16/17 13:24 Dose: 1 applic Docusate Sodium (Colace -) 100 mg PO Q8H PRN PRN Reason: CONSTIPATION Last Admin: 05/15/17 22:05 Dose: 100 mg Heparin Sodium (Porcine) (Heparin -) 5,000 unit SQ BID [facility] Last Admin: 05/16/17 09:55 Dose: 5,000 unit IV Flush (Picc Line Flush) 8 ml IVPUSH PRN PRN PRN Reason: Protocol Sodium Chloride (Normal Saline -) 1,000 mls @ 42 mls/hr IV ASDIR [facility] Last Admin: 05/16/17 06:09 Dose: 42 mls/hr Lidocaine (Lidoderm Patch -) 1 patch TP DAILY [facility] Last Admin: 05/16/17 09:53 Dose: 1 patch Losartan Potassium (Cozaar -) 50 mg PO DAILY [facility] Last Admin: 05/16/17 09:55 Dose: 50 mg Miscellaneous (Lidoderm Patch Removal) 1 each MC DAILY@2200 [facility] Morphine Sulfate (Morphine Injection -) 4 mg IVPUSH Q6H PRN PRN Reason: PAIN Last Admin: 05/16/17 13:24 Dose: 4 mg Oxycodone HCl (Roxicodone -) 5 mg PO Q6H PRN PRN Reason: PAIN Last Admin: 05/12/17 14:33 Dose: 5 mg Piperacillin Sod/Tazobactam Sod (Zosyn 3.375gm Ivpb (Pre-Docked)) 3.375 gm IVPB Q8H-IV [place] PRN Reason: Protocol Last Admin: 05/16/17 17:36 Dose: 3.375 gm Vancomycin HCl (Vancomycin (Pre-Docked)) 1,000 mg IVPB DAILY@1400 [place] PRN Reason: Protocol Last Admin: 05/16/17 13:24 Dose: 1,000 mg - Objective Vital Signs: Vital Signs Temperature 97.9 F 05/16/17 15:34 Pulse Rate 78 05/16/17 15:34 Respiratory Rate 20 05/16/17 15:34 Blood Pressure 148/97 05/16/17 15:34 O2 Sat by Pulse Oximetry (%) 95 05/16/17 09:00 Constitutional: Yes: Well Nourished, No Distress, Calm Cardiovascular: Yes: Regular Rate and Rhythm Respiratory: Yes: Regular Musculoskeletal: Yes: Muscle Pain (RIGHT THIGH) Extremities: Yes: Other (WOUND RIGHT HEEL) Edema: Yes Edema: RLE: Trace Neurological: Yes: Alert, Oriented Labs: CBC, BMP 05/16/17 06:40 05/16/17 06:40 Problem List - Problems (1) Diabetic foot ulcer Assessment/Plan: WOUND CULTURES PRELIMINARY CORYNEBACTERIUM, GRAM POSITIVE BACILLI DEBRIDMENT BY DR MARILIA HANNON PIC FOR THURSDAY Code(s): E11.621 - TYPE 2 DIABETES MELLITUS WITH FOOT ULCER L97.509 - NON-PRESSURE CHRONIC ULCER OTH PRT UNSP FOOT W UNSP SEVERITY Qualifiers: Diabetic foot ulcer location: heel Diabetes mellitus type: type 1 Laterality: right Non-pressure ulcer stage: with fat layer exposed Qualified Code(s): E10.621 - Type 1 diabetes mellitus with foot ulcer; L97.411 - Non-pressure chronic ulcer of right heel and midfoot limited to breakdown of skin (2) Osteomyelitis Assessment/Plan: WILL NEED 6 WEEKS OF ABX. ABX PER ID PAIN MANAGEMENT Code(s): M86.9 - OSTEOMYELITIS, UNSPECIFIED Qualifiers: Osteomyelitis location: ankle Laterality: right (3) Renal insufficiency Assessment/Plan: STABLE Code(s): N28.9 - DISORDER OF KIDNEY AND URETER, UNSPECIFIED (4) Diabetes mellitus, insulin dependent (IDDM), uncontrolled Code(s): E10.65 - TYPE 1 DIABETES MELLITUS WITH HYPERGLYCEMIA Qualifiers: Diabetes mellitus complication detail: with foot ulcer Assessment/Plan WILL NEED 6 WEEKS OF ABX. ABX PER ID WOUND CULTURE- CORYNEBACTERIUM-GRAM POSITIVE [facility] PAIN MANAGEMENT REPEAT LABS PICC AND D/C TO REHAB ONCE STABLE.
[2017-05-16] MEDS: LIDOCAINE PATCH REMOVAL MC SCH (22:26)
[2017-05-16] MEDS: ATORVASTATIN CA 20 MG TABLET (FP) PO SCH (22:27)
[2017-05-17] MEDS: PIPERACILLIN/TAZOB 3.375 GM/50 ML PRE-DOCKED IVPB SCH ×2 (02:55→09:13)
[2017-05-17] MEDS: SODIUM CHLORIDE 1,000 ML IV SCH ×2 (05:53→23:06)
[2017-05-17] MEDS: amLODIPine BESYLATE 10 MG TABLET (FP) PO SCH (09:13)
[2017-05-17] MEDS: ASPIRIN COATED 81 MG TABLET.EC PO SCH (09:13)
[2017-05-17] MEDS: LIDOCAINE 5% TOPICAL PATCH TP SCH (09:13)
[2017-05-17] MEDS: LOSARTAN POTASSIUM 50 MG TABLET (FP) PO SCH (09:13)
[2017-05-17] MEDS: COLLAGENASE CLOSTRIDIUM HIST. 30 GRAMS TUBE TP SCH (10:02)
--- NOTE | 2017-05-17 11:29 | PN ---
Progress Note (short form) - Note Progress Note: RENAL Pt is awake and alert comfortable feels well Last Vital Signs Temp Pulse Resp BP Pulse Ox 98.1 F 88 18 146/84 94 L 05/17/17 10:00 05/17/17 10:00 05/17/17 10:00 05/17/17 10:00 05/17/17 09:00 lungs clear cvs s1s2 rr abd soft ext no edema, two deep ulcers noted on right foot, clean, no drainage. Has good distal pulses neuro a+ox3 CBC, BMP 05/16/17 06:40 05/16/17 06:40 Current Medications Generic Name Dose Route Start Last Admin Trade Name Freq PRN Reason Stop Dose Admin Acetaminophen 650 mg 05/09/17 21:58 05/10/17 16:43 Tylenol - PO 650 mg Q6H PRN Administration FEVER OR PAIN Amlodipine Besylate 10 mg 05/10/17 10:00 05/17/17 09:13 Norvasc - PO 10 mg DAILY [place] Administration Aspirin 81 mg 05/10/17 10:00 05/17/17 09:13 Ecotrin - PO 81 mg DAILY [place] Administration Atorvastatin Calcium 20 mg 05/11/17 22:00 05/16/17 22:27 Lipitor - PO 20 mg HS [place] Administration Collagenase 1 applic 05/10/17 21:00 05/17/17 10:02 Santyl - TP 1 applic DAILY [place] Administration Docusate Sodium 100 mg 05/09/17 21:58 05/15/17 22:05 Colace - PO 100 mg Q8H PRN Administration CONSTIPATION IV Flush 8 ml 05/15/17 10:01 Picc Line Flush IVPUSH PRN PRN Protocol Sodium Chloride 1,000 mls @ 42 mls/hr 05/10/17 18:45 05/17/17 05:53 Normal Saline - IV 42 mls/hr ASDIR [place] Administration Lidocaine 1 patch 05/16/17 10:00 05/17/17 09:13 Lidoderm Patch - TP 1 patch DAILY [place] Administration Losartan Potassium 50 mg 05/10/17 10:00 05/17/17 09:13 Cozaar - PO 50 mg DAILY [place] Administration Miscellaneous 1 each 05/16/17 22:00 05/16/17 22:26 Lidoderm Patch Removal MC 1 each DAILY@2200 [place] Administration Morphine Sulfate 4 mg 05/14/17 22:26 05/16/17 23:00 Morphine Injection - IVPUSH 4 mg Q6H PRN Administration PAIN Oxycodone HCl 5 mg 05/09/17 21:58 05/12/17 14:33 Roxicodone - PO 5 mg Q6H PRN Administration PAIN Piperacillin Sod/Tazobactam Sod 3.375 gm 05/10/17 12:15 05/17/17 09:13 Zosyn 3.375gm Ivpb (Pre-Docked) IVPB 3.375 gm Q8H-IV [place] Administration Protocol Vancomycin HCl 1,000 mg 05/13/17 14:00 05/16/17 13:24 Vancomycin (Pre-Docked) IVPB 1,000 mg DAILY@1400 [place] Administration Protocol Impression 1. CKD 2. Inguinal lymphadenopathy probaly due to infection 3. DEYSI 4. DM 5. HTN Plan - monitor vanco levels - cont fluids - repeat labs in am - wound care to foot - cont with losartan - outpt follow up - antibiotics/ I+D/ getting collagenase MV
[2017-05-17] MEDS: morphine CARPU-JECT 4 MG/1 ML DISP.SYRIN IVPUSH PRN ×2 (13:00→23:14)
[2017-05-17] MEDS: VANCOMYCIN 1 GRAM (PRE-DOCKED) 1,000 MG/250 ML BAG IVPB SCH (13:13)
--- NOTE | 2017-05-17 18:46 | PN ---
Progress Note, Physician Chief Complaint: RIGHT FOOT DIABETIC ULCER WITH OSTEOMYELITIS History of Present Illness: RLE EDEMA, WARM TO TOUCH, PAIN ON MOVEMENT. - Current Medication List Current Medications: Active Medications Acetaminophen (Tylenol -) 650 mg PO Q6H PRN PRN Reason: FEVER OR PAIN Last Admin: 05/10/17 16:43 Dose: 650 mg Amlodipine Besylate (Norvasc -) 10 mg PO DAILY [facility] Last Admin: 05/17/17 09:13 Dose: 10 mg Aspirin (Ecotrin -) 81 mg PO DAILY [facility] Last Admin: 05/17/17 09:13 Dose: 81 mg Atorvastatin Calcium (Lipitor -) 20 mg PO HS [facility] Last Admin: 05/16/17 22:27 Dose: 20 mg Collagenase (Santyl -) 1 applic TP DAILY [facility] Last Admin: 05/17/17 10:02 Dose: 1 applic Docusate Sodium (Colace -) 100 mg PO Q8H PRN PRN Reason: CONSTIPATION Last Admin: 05/15/17 22:05 Dose: 100 mg IV Flush (Picc Line Flush) 8 ml IVPUSH PRN PRN PRN Reason: Protocol Sodium Chloride (Normal Saline -) 1,000 mls @ 42 mls/hr IV ASDIR [facility] Last Admin: 05/17/17 05:53 Dose: 42 mls/hr Lidocaine (Lidoderm Patch -) 1 patch TP DAILY [facility] Last Admin: 05/17/17 09:13 Dose: 1 patch Losartan Potassium (Cozaar -) 50 mg PO DAILY [facility] Last Admin: 05/17/17 09:13 Dose: 50 mg Miscellaneous (Lidoderm Patch Removal) 1 each MC DAILY@2200 [facility] Last Admin: 05/16/17 22:26 Dose: 1 each Morphine Sulfate (Morphine Injection -) 4 mg IVPUSH Q6H PRN PRN Reason: PAIN Last Admin: 05/17/17 13:00 Dose: 4 mg Oxycodone HCl (Roxicodone -) 5 mg PO Q6H PRN PRN Reason: PAIN Last Admin: 05/12/17 14:33 Dose: 5 mg Vancomycin HCl (Vancomycin (Pre-Docked)) 1,000 mg IVPB DAILY@1400 [place] PRN Reason: Protocol Last Admin: 05/17/17 13:13 Dose: 1,000 mg - Objective Vital Signs: Vital Signs Temperature 97.8 F 05/17/17 15:58 Pulse Rate 77 05/17/17 15:58 Respiratory Rate 20 05/17/17 15:58 Blood Pressure 146/93 05/17/17 15:58 O2 Sat by Pulse Oximetry (%) 94 L 05/17/17 09:00 Constitutional: Yes: Well Nourished, No Distress, Calm Cardiovascular: Yes: Regular Rate and Rhythm Respiratory: Yes: Regular Gastrointestinal: Yes: Normal Bowel Sounds Musculoskeletal: Yes: Muscle Pain (RLE) Extremities: Yes: Other (RIGHT FOOT WARM TO TOUCH) Edema: Yes Edema: RLE: Trace Peripheral Pulses WNL: Yes Wound/Incision: Yes: Dressing Dry and Intact Neurological: Yes: Alert, Oriented Labs: CBC, BMP 05/16/17 06:40 05/16/17 06:40 Problem List - Problems (1) Diabetic foot ulcer Assessment/Plan: WOUND CULTURES PRELIMINARY CORYNEBACTERIUM, GRAM POSITIVE BACILLI DEBRIDMENT BY DR MARILIA HANNON PICC FOR THURSDAY Code(s): E11.621 - TYPE 2 DIABETES MELLITUS WITH FOOT ULCER L97.509 - NON-PRESSURE CHRONIC ULCER OTH PRT UNSP FOOT W UNSP SEVERITY Qualifiers: Diabetic foot ulcer location: heel Diabetes mellitus type: type 1 Laterality: right Non-pressure ulcer stage: with fat layer exposed Qualified Code(s): E10.621 - Type 1 diabetes mellitus with foot ulcer; L97.411 - Non-pressure chronic ulcer of right heel and midfoot limited to breakdown of skin (2) Osteomyelitis Assessment/Plan: WILL NEED 6 WEEKS OF ABX. ABX PER ID PAIN MANAGEMENT Code(s): M86.9 - OSTEOMYELITIS, UNSPECIFIED Qualifiers: Osteomyelitis location: ankle Laterality: right (3) Renal insufficiency Assessment/Plan: STABLE Code(s): N28.9 - DISORDER OF KIDNEY AND URETER, UNSPECIFIED (4) Diabetes mellitus, insulin dependent (IDDM), uncontrolled Assessment/Plan: HAS MEDTRONIC CONTINUOUS INSULIN PUMP. HGA1C AT 8.8, UNCONTROLLED AT THIS TIME. [employer] INSULIN COVERAGE PROVIDED. Code(s): E10.65 - TYPE 1 DIABETES MELLITUS WITH HYPERGLYCEMIA Qualifiers: Diabetes mellitus complication detail: with foot ulcer Assessment/Plan WILL NEED 6 WEEKS OF ABX. ABX PER ID WOUND CULTURE- CORYNEBACTERIUM-GRAM POSITIVE BACILLI- ALREADY ON VANCO PAIN MANAGEMENT REPEAT LABS PICC AND D/C TO REHAB ONCE STABLE.
[2017-05-17] MEDS: ATORVASTATIN CA 20 MG TABLET (FP) PO SCH (23:10)
[2017-05-17] MEDS: LIDOCAINE PATCH REMOVAL MC SCH (23:10)
[2017-05-18] MEDS: SODIUM CHLORIDE 1,000 ML IV SCH ×2 (06:18→19:10)
[2017-05-18 07:49] LABS: EOSINOPHIL 6.6 % (0-4.5); MCH 28.1 pg (25.7-33.7); MCHC 34.1 g/dl (32.0-35.9); MEAN CELL VOLUME 82.4 fl (80-96); MEAN PLT VOLUME 7.1 fl (7.5-11.1); PLATELET COUNT 337 K/MM3 (134-434); RDW 12.7 % (11.9-15.9); WHITE BLOOD COUNT 8.7 K/mm3 (4.0-10.0)
[2017-05-18 08:57] LABS: ALBUMIN 2.5 g/dl (3.4-5.0); ALK PHOS 87 U/L (45-117); ANION GAP 10 (8-16); BILIRUBIN,TOTAL 0.3 mg/dL (0.2-1.0); CALCIUM 8.6 mg/dL (8.5-10.1); CO2 22 mmol/L (21-32); CREATININE 1.8 mg/dL (0.7-1.3); GLUCOSE,RANDOM 112 mg/dL (74-106); SGOT/AST 24 U/L (15-37); SGPT/ALT 23 U/L (12-78); TOT PROT 7.7 g/dl (6.4-8.2)
[2017-05-18] MEDS: ASPIRIN COATED 81 MG TABLET.EC PO SCH (11:19)
[2017-05-18] MEDS: amLODIPine BESYLATE 10 MG TABLET (FP) PO SCH (11:19)
[2017-05-18] MEDS: LIDOCAINE 5% TOPICAL PATCH TP SCH (11:22)
[2017-05-18] MEDS: LOSARTAN POTASSIUM 50 MG TABLET (FP) PO SCH (11:22)
[2017-05-18] MEDS: COLLAGENASE CLOSTRIDIUM HIST. 30 GRAMS TUBE TP SCH (11:22)
[2017-05-18] MEDS: morphine CARPU-JECT 4 MG/1 ML DISP.SYRIN IVPUSH PRN ×2 (11:23→22:09)
--- NOTE | 2017-05-18 11:23 | PN ---
Progress Note (short form) - Note Progress Note: thigh discomfort has resolved less swelling of the foot Vital Signs Period Temp Pulse Resp BP Sys/Banuelos Pulse Ox Last 24 Hr 97.8 F-98.1 F 77-96 18-20 146-148/78-93 94 no drainage from the ulcer cor rrr lungs clear abd soft,nt less inguinal discomfort, node is much smaller no thigh discomfort ulcer is clean, no drainage! CBC, BMP 05/18/17 06:30 05/18/17 06:30 Laboratory Tests 05/10/17 05/10/17 05/10/17 00:28 00:28 07:25 ESR 108 H Hemoglobin A1c % 8.8 H D C-Reactive Protein 9.0 H D 05/15/17 14:15 ESR Hemoglobin A1c % C-Reactive Protein 4.2 H D Microbiology 05/14/17 12:30 Foot - Right Heel Gram Stain - Final 05/14/17 12:30 Foot - Right Heel Wound Culture - Final Corynebacterium Species 05/09/17 19:17 Blood - Peripheral Venous Blood Culture - Final NO GROWTH AFTER 5 DAYS INCUBATION 05/09/17 19:17 Blood - Peripheral Venous Blood Culture - Final NO GROWTH AFTER 5 DAYS INCUBATION a/p diabetic ulcer osteomyelitis-crp trending down dm ckd no usefull cultures no plans for biopsy per surgery empiric vancomycin/rocephin,po flagyl for 6 weeks needs close outpt followup with wound care needs good control of diabetes should f/u in our office in 2 weeks [phone] Molina needs weekly labs, vancomycin trough, esr.crp d/w pt at length d/w Dr Bustamante Problem List - Problems (1) Diabetic infection of right foot Code(s): E11.69 - TYPE 2 DIABETES MELLITUS WITH OTHER SPECIFIED COMPLICATION L08.9 - LOCAL INFECTION OF THE SKIN AND SUBCUTANEOUS TISSUE, UNSP (2) Osteomyelitis Code(s): M86.9 - OSTEOMYELITIS, UNSPECIFIED Qualifiers: Osteomyelitis location: ankle Laterality: right (3) Renal insufficiency Code(s): N28.9 - DISORDER OF KIDNEY AND URETER, UNSPECIFIED
--- NOTE | 2017-05-18 11:24 | DS ---
Physical Examination Vital Signs: Vital Signs Temperature 98.1 F 05/18/17 06:17 Pulse Rate 82 05/18/17 06:17 Respiratory Rate 18 05/18/17 06:17 Blood Pressure 147/78 05/18/17 06:17 O2 Sat by Pulse Oximetry (%) 94 L 05/17/17 21:00 Constitutional: Yes: Calm Neck: Yes: Trachea Midline Cardiovascular: Yes: Regular Rate and Rhythm, S1, S2 Respiratory: Yes: CTA Bilaterally Gastrointestinal: Yes: Soft Extremities: Yes: Other (tunnel cath placed) Neurological: Yes: Other (foot wound) Psychiatric: Yes: Alert Labs: CBC, BMP 05/18/17 06:30 05/18/17 06:30 Discharge Summary Reason For Visit: DIABETIC FOOT ULCER Current Active Problems Diabetic foot ulcer (Acute) Diabetic infection of right foot (Acute) Osteomyelitis (Acute) Hospital Course: The patient is a 47 year old male with past medical history of hypertension and IDDM who presents to the ED with complaints of worsening right heel wound infection for the past three weeks. The patient states he noticed the wound after driving home from work and went to his PCP in which he was prescribed clindamyacin and cipro which did not help. Over the past week, the patient noticed the wound draining, becoming more swollen, and his right leg is becoming swollen. Yesterday he began developing a fever and noted it to be about 102 this afternoon. Right wound on heel, clind and cipro for about 3 weeks by PCP, fever yesterday, 3:00 today at 102. The patient denies any nausea, vomiting, diarrhea. He denies any cough, shortness of breath or chest pain. He denies any urinary symptoms. Allergies: None Surgical History: Herniated disc surgery [employer]ole[employer] Mechanic: Mk Dean Microbiology 05/14/17 12:30 Foot - Right Heel Gram Stain - Final 05/14/17 12:30 Foot - Right Heel Wound Culture - Final Corynebacterium Species came in with elevated wbc and ESR, foot wound debridememnt done correction iv abx vanco/zosyn will change to vanco,rocephin,flagyl MRI done osteo of heel seen by endo insulin basal rate adjsuted Condition: Stable - Instructions Referrals: Mk Dean MD [Primary Care Provider] - Disposition: VNS/HOME HEALTH CARE - Home Medications Comprehensive Discharge Medication List: Ambulatory Orders Insulin Pump Cartridge [Cartridge] 1 each SCJ ASDIR 03/30/13 Folic Acid 1 mg PO HS 08/20/16 Linaclotide [Linzess] 145 mcg PO DAILY 01/26/17 Losartan/Hydrochlorothiazide [Losartan-Hctz 100-12.5 mg Tab] 1 each PO DAILY [facility] - 81 mg PO DAILY 05/04/17 Amlodipine Besylate 10 mg PO DAILY 05/04/17 Ciprofloxacin 500 mg PO DAILY 05/04/17 Clindamycin 300 mg PO DAILY 05/04/17 Dulaglutide [Trulicity] 0.75 mg SQ WEEKLY 05/09/17
[2017-05-18] MEDS: VANCOMYCIN 1 GRAM (PRE-DOCKED) 1,000 MG/250 ML BAG IVPB SCH (14:11)
[2017-05-18] MEDS: LIDOCAINE PATCH REMOVAL MC SCH (22:08)
[2017-05-18] MEDS: ATORVASTATIN CA 20 MG TABLET (FP) PO SCH (22:09)
--- NOTE | 2017-05-19 08:23 | PN ---
Progress Note (short form) - Note Progress Note: awaiting insurance approval for iv antibiotics chart and cultures reviewed given lack of culture data will treat with vancomycin iv 1250 daily (calculated cr cl is normal) levaquin 500 po daily and flagyl 500 tid for another 5 weeks should have weekly labs with vancomycin trough, cbc, cmp, esr, crp he needs to off load his foot and f/u at wound care! he is well aware that this may not be successful if he does not off load his heel at home should f/u with us in the office in 2 weeks [phone] Problem List - Problems (1) Diabetic infection of right foot Code(s): E11.69 - TYPE 2 DIABETES MELLITUS WITH OTHER SPECIFIED COMPLICATION L08.9 - LOCAL INFECTION OF THE SKIN AND SUBCUTANEOUS TISSUE, UNSP (2) Osteomyelitis Code(s): M86.9 - OSTEOMYELITIS, UNSPECIFIED Qualifiers: Osteomyelitis location: ankle Laterality: right (3) Renal insufficiency Code(s): N28.9 - DISORDER OF KIDNEY AND URETER, UNSPECIFIED
[2017-05-19] MEDS ORDERED: PT OWN MED DRAWER 7, Y5N ONE (09:22)
[2017-05-19] MEDS: LOSARTAN POTASSIUM 50 MG TABLET (FP) PO SCH (09:25)
[2017-05-19] MEDS: amLODIPine BESYLATE 10 MG TABLET (FP) PO SCH (09:25)
[2017-05-19] MEDS: ASPIRIN COATED 81 MG TABLET.EC PO SCH (09:25)
[2017-05-19] MEDS: metroNIDAZOLE 250 MG TABLET PO SCH ×2 (09:25→13:05)
[2017-05-19] MEDS: COLLAGENASE CLOSTRIDIUM HIST. 30 GRAMS TUBE TP SCH (09:26)
[2017-05-19] MEDS: LIDOCAINE 5% TOPICAL PATCH TP SCH (09:26)
[2017-05-19] MEDS ORDERED: VANCOMYCIN 1,250 MG in DEXTROSE 5%-WATER - 250 ML IVPB SCH (10:00)
[2017-05-19] MEDS ORDERED: LEVOFLOXACIN 500 MG TABLET (FP) PO SCH (10:00)
[2017-05-19 10:27] VITALS: BP 162/98; PULSE 80; TEMP 97.1
--- NOTE | 2017-05-19 11:11 | PN ---
Progress Note, Physician Chief Complaint: pateint seen and examiend awaitng auth from insurance for iv infusion at home no complaints comfortable - Current Medication List Current Medications: Active Medications Acetaminophen (Tylenol -) 650 mg PO Q6H PRN PRN Reason: FEVER OR PAIN Last Admin: 05/10/17 16:43 Dose: 650 mg Amlodipine Besylate (Norvasc -) 10 mg PO DAILY [facility] Last Admin: 05/19/17 09:25 Dose: 10 mg Aspirin (Ecotrin -) 81 mg PO DAILY [facility] Last Admin: 05/19/17 09:25 Dose: 81 mg Atorvastatin Calcium (Lipitor -) 20 mg PO HS [facility] Last Admin: 05/18/17 22:09 Dose: 20 mg Collagenase (Santyl -) 1 applic TP DAILY [facility] Last Admin: 05/19/17 09:26 Dose: 1 applic Docusate Sodium (Colace -) 100 mg PO Q8H PRN PRN Reason: CONSTIPATION Last Admin: 05/15/17 22:05 Dose: 100 mg IV Flush (Picc Line Flush) 8 ml IVPUSH PRN PRN PRN Reason: Protocol Sodium Chloride (Normal Saline -) 1,000 mls @ 42 mls/hr IV ASDIR [facility] Last Admin: 05/18/17 19:10 Dose: 42 mls/hr Vancomycin HCl 1,250 mg/ (Dextrose) 250 mls @ 166.667 mls/hr IVPB DAILY [place] PRN Reason: Protocol Last Admin: 05/19/17 10:37 Dose: 166.667 mls/hr Levofloxacin (Levaquin -) 500 mg PO DAILY@0600 [facility] Last Admin: 05/19/17 09:25 Dose: 500 mg Lidocaine (Lidoderm Patch -) 1 patch TP DAILY [facility] Last Admin: 05/19/17 09:26 Dose: 1 patch Losartan Potassium (Cozaar -) 50 mg PO DAILY [facility] Last Admin: 05/19/17 09:25 Dose: 50 mg Metronidazole (Flagyl -) 500 mg PO TID [facility] Last Admin: 05/19/17 09:25 Dose: 500 mg Miscellaneous (Lidoderm Patch Removal) 1 each MC DAILY@2200 [facility] Last Admin: 05/18/17 22:08 Dose: 1 each Morphine Sulfate (Morphine Injection -) 4 mg IVPUSH Q6H PRN PRN Reason: PAIN Last Admin: 05/18/17 22:09 Dose: 4 mg Oxycodone HCl (Roxicodone -) 5 mg PO Q6H PRN PRN Reason: PAIN Last Admin: 05/12/17 14:33 Dose: 5 mg - Objective Vital Signs: Vital Signs Temperature 97.1 F L 05/19/17 10:00 Pulse Rate 80 05/19/17 10:00 Respiratory Rate 18 05/19/17 10:00 Blood Pressure 162/98 05/19/17 10:00 O2 Sat by Pulse Oximetry (%) 97 05/18/17 21:00 Constitutional: Yes: Calm Neck: Yes: Trachea Midline Cardiovascular: Yes: Regular Rate and Rhythm, S1, S2 Respiratory: Yes: CTA Bilaterally Gastrointestinal: Yes: Normal Bowel Sounds, Soft Extremities: Yes: Other (right heel wrapped) Wound/Incision: Yes: Dressing Dry and Intact Neurological: Yes: Alert, Oriented Labs: CBC, BMP 05/18/17 06:30 05/18/17 06:30 Problem List - Problems (1) Osteomyelitis Assessment/Plan: awaiting auth from insurance FU at wound care center iv abx for 5 weeks iv vanco po levaquin and flagyl for 5 weeks dvt ppx Code(s): M86.9 - OSTEOMYELITIS, UNSPECIFIED Qualifiers: Osteomyelitis location: ankle Laterality: right (2) Diabetic foot ulcer Assessment/Plan: iv abx per ID mRI of foot shows osteo will need transliterator abx 6 weeks collagenase appreicate vascular input consult podiatry Code(s): E11.621 - TYPE 2 DIABETES MELLITUS WITH FOOT ULCER L97.509 - NON-PRESSURE CHRONIC ULCER OTH PRT UNSP FOOT W UNSP SEVERITY Qualifiers: Diabetic foot ulcer location: heel Diabetes mellitus type: type 1 Laterality: right Non-pressure ulcer stage: with fat layer exposed Qualified Code(s): E10.621 - Type 1 diabetes mellitus with foot ulcer; L97.411 - Non-pressure chronic ulcer of right heel and midfoot limited to breakdown of skin (3) Diabetes mellitus, insulin dependent (IDDM), uncontrolled Assessment/Plan: appreicate endo consult [id number] 8.8 still elevated but better than previous when it was in 10 range insulin per endocrine statin for elevated ldl Code(s): E10.65 - TYPE 1 DIABETES MELLITUS WITH HYPERGLYCEMIA Qualifiers: Diabetes mellitus complication detail: with foot ulcer (4) Hypertension Assessment/Plan: same meds continue cozaar Code(s): I10 - ESSENTIAL (PRIMARY) HYPERTENSION Qualifiers: Hypertension type: essential hypertension Qualified Code(s): I10 - Essential (primary) hypertension (5) Renal insufficiency Assessment/Plan: renal on board ultrasound noted iv hydration improving creatinine- now seems to be baseline cr 1.8 on aRB Code(s): N28.9 - DISORDER OF KIDNEY AND URETER, UNSPECIFIED
== END 2017-05-19 13:23 | disposition home health service (06) | DRG 344 ==
LOC: JER 18:17 → JERBED 22:09 → UNDOADMIN 22:28 → JERBED 22:28 → J5S 05-10 01:16
PROVIDERS: ADMIT Family Medicine; ATTEND Family Medicine
PROC: 0JBQ0ZZ Excision of Right Foot Subcutaneous Tissue and Fascia, Open Approach (ICD-10-PCS; principal; 2017-05-12)
PROC: 0JBQ0ZZ Excision of Right Foot Subcutaneous Tissue and Fascia, Open Approach (ICD-10-PCS; 2017-05-14)
PROC: 02HV33Z Insertion of Infusion Device into Superior Vena Cava, Percutaneous Approach (ICD-10-PCS; 2017-05-18)
PROC: B518YZA Fluoroscopy of Superior Vena Cava using Other Contrast, Guidance (ICD-10-PCS; 2017-05-18)
DX: E11.621 Type 2 diabetes mellitus with foot ulcer (principal); N17.9 Acute kidney failure, unspecified; E11.42 Type 2 diabetes mellitus with diabetic polyneuropathy; E11.22 Type 2 diabetes mellitus with diabetic chronic kidney disease; L97.419 Non-pressure chronic ulcer of right heel and midfoot with unspecified severity; E11.65 Type 2 diabetes mellitus with hyperglycemia; L03.115 Cellulitis of right lower limb; E11.69 Type 2 diabetes mellitus with other specified complication; M86.8X7 Other osteomyelitis, ankle and foot; I10 Essential (primary) hypertension; N40.0 Benign prostatic hyperplasia without lower urinary tract symptoms; K21.9 Gastro-esophageal reflux disease without esophagitis; R59.1 Generalized enlarged lymph nodes; I12.9 Hypertensive chronic kidney disease with stage 1 through stage 4 chronic kidney disease, or unspecified chronic kidney disease; N18.9 Chronic kidney disease, unspecified
CPT/HCPCS: 36415; 36558; 71010-TC; 73630-TC-RT; 73721-RT-TC; 76775-TC; 76856-TC; 76882; 77001-TC; 80048; 80053; 80061; 81003; 81015; 82436; 82570; 83036; 83721; 84133; 84156; 84300; 85025; 85027; 85651; 86140; 87040; 87070; 87205; 93005; 93010; 93971-TC; 99284-25; C1751; G0480; J1644

== ENCOUNTER 2017-08-03 22:10 | Inpatient (IN) | payer OTHER ==
[2017-08-03 22:30] VITALS: BMI 32.5
--- NOTE | 2017-08-03 23:35 | PDOC ---
Attending Attestation - Resident Resident Name: Malka Perez - ED Attending Attestation I have performed the following: I have examined & evaluated the patient, The case was reviewed & discussed with the resident, I agree w/resident's findings & plan, Exceptions are as noted - HPI HPI: 08/04/17 00:02 47 yo male IDDM with chronic nonhealing rt foot ulcers p/w increasing pain. He had lost his health insurance n June and it was reinstated in this month - Physicial Exam PE: 08/04/17 00:05 Well-nourished, well-developed 47-year-old female presents with chronic right foot ulcers within normal limits Lungs clear to auscultation bilaterally CVS regular rate and rhythm S1, S2 Abdomen is soft is no rebound or guarding There are 2 large ulcerations on his right foot. One is on the ball of his foot and then on his stairs he'll. There is no obvious drainage, there is no surrounding erythema neuri alert ,ambulatory - Medical Decision Making 08/05/17 01:15 47 yo IDDM ,concern for nonhealing IDDM ulcer,admitted
--- NOTE | 2017-08-03 23:42 | PDOC ---
History of Present Illness - General Chief Complaint: Wound Stated Complaint: RIGHT FOOT WOUND Time Seen by Provider: 08/03/17 22:57 History Source: Patient - History of Present Illness Initial Comments: 08/03/17 23:53 Patient is a 47 y.o. male with a PMH IDDM and HTN as well as diabetic foot ulcers who presents c/o pain associated with of his foot ulcers on the dorsum of his foot. Patient state 08/03/17 23:56 Past History - Past Medical History Allergies/Adverse Reactions: Allergies Allergy/AdvReac Type Severity Reaction Status Date / Time No Known Allergies Allergy Verified 08/03/17 22:18 Home Medications: Ambulatory Orders Insulin Pump Cartridge [Cartridge] 1 each SCJ ASDIR 03/30/13 Folic Acid 1 mg PO HS 08/20/16 ASA - 81 mg PO DAILY #30 tab MDD 1 05/18/17 Amlodipine Besylate 10 mg PO DAILY #30 tab MDD 1 05/18/17 Atorvastatin Ca [Lipitor] 20 mg PO HS #30 tablet MDD 1 05/18/17 Collagenase Clostridium Hist. [Santyl -] 1 applic TP DAILY #1 tube MDD 1 Losartan Potassium [Cozaar -] 50 mg PO DAILY #30 tablet MDD 1 05/18/17 Metronidazole [Flagyl -] 500 mg PO TID #120 tablet MDD 3 05/18/17 Levofloxacin [Levaquin -] 500 mg PO DAILY@0600 #60 tablet MDD 1 05/19/17 Vancomycin 1,250 mg IVPB DAILY #30 vial MDD 1 05/19/17 Anemia: No Asthma: No Cancer: No Cardiac Disorders: No CVA: No COPD: No CHF: No Dementia: No Diabetes: Yes (INSULIN PUMP) GI Disorders: Yes (GERD) Disorders: Yes (BPH) HTN: Yes Hypercholesterolemia: No Liver Disease: No Seizures: No Thyroid Disease: No - Surgical History Abdominal Surgery: No Appendectomy: No Cardiac Surgery: No Cholecystectomy: No Lung Surgery: No Neurologic Surgery: Yes (LOWER BACK FOR HERNIATED DISC) Orthopedic Surgery: No - Immunization History Td Vaccination: Yes TDAP Vaccination: Yes Immunization Up to Date: Yes - Psycho/Social/Smoking Cessation Hx Anxiety: No Suicidal Ideation: No Smoking Status: No Smoking History: Never smoked Have you smoked in the past 12 months: No Number of Cigarettes Smoked Daily: 2 If you are a former smoker, when did you quit?: 14 yrs ago Information on smoking cessation initiated: No Hx Alcohol Use: No Drug/Substance Use Hx: No Substance Use Type: None Hx Substance Use Treatment: No Review of Systems - Review of Systems Constitutional: Yes: Fever. No: Chills Respiratory: No: Shortness of Breath Cardiac (ROS): No: Chest Pain ABD/GI: No: Constipated, Diarrhea, Nausea, Vomiting : No: Burning, Dysuria All Other Systems: Reviewed and Negative *Physical Exam - Vital Signs Last Vital Signs Temp Pulse Resp BP Pulse Ox 98.3 F 112 H 20 152/88 99 08/03/17 22:18 08/03/17 22:18 08/03/17 22:18 08/03/17 22:18 08/03/17 22:18 - Physical Exam General Appearance: Yes: Nourished, Appropriately Dressed Neck: positive: Trachea midline, Supple Respiratory/Chest: positive: Normal Breath Sounds Cardiovascular: positive: Regular Rhythm, Regular Rate, S1, S2 Integumentary: positive: Other (2 cm ovalish Stage 2 ulcer on R heel; 1.5 cm diameter circular Stage 2 ulcer under R 1st phalanx; Stage 1 ulcer on R dorsum superior dorsum) Neurologic: positive: Fully Oriented, Alert Medical Decision Making - Medical Decision Making 08/03/17 23:45 Patient is a 47 y.o. male who presents with two Stage 2 ulcers and a single Stage 1 ulcer on the plantar surface of his R foot. Initial DDx is for Osteomyelitis vs. Cellulitis (less likely no erythema, patient afebrile, but c/ o fevers @ home) vs. Pseudomonas. PLAN: 1. CBC, BMP 2. ESR, CRP 3. R Foot X-ray 4. Fingerstick glucose
[2017-08-04 00:35] LABS: BASOPHIL 1.2 % (0-2.0); EOSINOPHIL 3.2 % (0-4.5); MCH 28.3 pg (25.7-33.7); MCHC 34.6 g/dl (32.0-35.9); MEAN CELL VOLUME 81.6 fl (80-96); MEAN PLT VOLUME 7.8 fl (7.5-11.1); NEUTROPHILS 62.2 % (42.8-82.8); PLATELET COUNT 269 K/MM3 (134-434); RDW 13.5 % (11.9-15.9); WHITE BLOOD COUNT 9.9 K/mm3 (4.0-10.0)
[2017-08-04] MEDS ORDERED: morphine CARPU-JECT 2 MG/1 ML DISP.SYRIN IVPUSH ONE (01:15)
--- NOTE | 2017-08-04 01:19 | PDOC ---
*Physical Exam - Vital Signs Last Vital Signs Temp Pulse Resp BP Pulse Ox 98.3 F 112 H 20 152/88 99 08/03/17 22:18 08/03/17 22:18 08/03/17 22:18 08/03/17 22:18 08/03/17 22:18 <Ignacia Sumner - Last Filed: 08/04/17 07:11> - Vital Signs Last Vital Signs Temp Pulse Resp BP Pulse Ox 98.3 F 112 H 20 152/88 99 08/03/17 22:18 08/03/17 22:18 08/03/17 22:18 08/03/17 22:18 08/03/17 22:18 <Lilia Pires - Last Filed: 08/06/17 07:21> ED Treatment Course - LABORATORY CBC & Chemistry Diagram: 08/04/17 00:15 08/04/17 00:17 - ADDITIONAL ORDERS Additional order review: Laboratory Results 08/04/17 08/04/17 00:17 00:15 Sodium 140 Potassium 4.1 Chloride 105 Carbon Dioxide 27 D Anion Gap 8 BUN 31 H Creatinine 2.4 H D Creat Clearance w eGFR 29.16 Random Glucose 140 H D Calcium 8.9 Total Bilirubin 0.4 D AST 16 D ALT 21 Alkaline Phosphatase 97 C-Reactive Protein 1.6 H D Total Protein 7.6 Albumin 3.1 L D 08/04/17 00:15 RBC 4.12 MCV 81.6 MCHC 34.6 RDW 13.5 MPV 7.8 Neutrophils % 62.2 Lymphocytes % 21.8 Monocytes % 11.6 H Eosinophils % 3.2 Basophils % 1.2 - Medications Given in the ED: ED Medications Discontinued Medications Generic Name Dose Route Start Last Admin Trade Name Freq PRN Reason Stop Dose Admin Clindamycin Phosphate 300 mg/ 50 mls @ 100 mls/hr 08/04/17 02:33 08/04/17 03:24 Dextrose IVPB 08/04/17 03:02 100 mls/hr ONCE ONE Administration Morphine Sulfate 2 mg 08/04/17 01:15 08/04/17 01:36 Morphine Injection - IVPUSH 08/04/17 01:16 2 mg ONCE ONE Administration Oxycodone/Acetaminophen 1 combo 08/04/17 00:07 08/04/17 00:46 Percocet 5/325 - PO 08/04/17 00:08 Not Given ONCE ONE <Ignacia Sumner - Last Filed: 08/04/17 07:11> - LABORATORY CBC & Chemistry Diagram: 08/05/17 06:50 08/05/17 06:50 - ADDITIONAL ORDERS Additional order review: Laboratory Results 08/04/17 00:15 C-Reactive Protein 1.6 H D 08/04/17 00:15 RBC 4.12 MCV 81.6 MCHC 34.6 RDW 13.5 MPV 7.8 Neutrophils % 62.2 Lymphocytes % 21.8 Monocytes % 11.6 H Eosinophils % 3.2 Basophils % 1.2 - Medications Given in the ED: ED Medications Discontinued Medications Generic Name Dose Route Start Last Admin Trade Name Freq PRN Reason Stop Dose Admin Oxycodone/Acetaminophen 1 combo 08/04/17 00:07 08/04/17 00:46 Percocet 5/325 - PO 08/04/17 00:08 Not Given ONCE ONE <Lilia Pires - Last Filed: 08/06/17 07:21> Medical Decision Making - Medical Decision Making 47yo M presents with two Stage 2 ulcers and one Stage 1 ulcer on plantar surface of Right foot. Ddx: osteomyelitis vs cellulitis (less likely 2/2 no erythema, afebrile) Pt declined percocet for pain. Morphine 2mg IVpush once ordered. 08/04/17 01:16 08/04/17 02:35 ESR 60, CRP 1.6 Clindamycin IVPB given wound cultures taken Pt signed off to incoming ER Resident as foot xray still pending. <Lilia Pires - Last Filed: 08/06/17 07:21> *DC/Admit/Observation/Transfer <Sumner,Ignacia - Last Filed: 08/04/17 07:11> <Lilia Pires - Last Filed: 08/06/17 07:21> Diagnosis at time of Disposition: Diabetic foot infection, Cellulitis of foot Osteomyelitis Qualifiers: Osteomyelitis type: unspecified type Osteomyelitis location: foot Laterality: right Qualified Code(s): M86.9 - Osteomyelitis, unspecified Diabetic foot ulcer Qualifiers: Diabetic foot ulcer location: heel Diabetes mellitus type: type 2 Laterality: right Non-pressure ulcer stage: limited to breakdown of skin Qualified Code(s): E11.621 - Type 2 diabetes mellitus with foot ulcer - Discharge Dispostion Condition at time of disposition: Guarded
[2017-08-04 01:20] LABS: ALBUMIN 3.1 g/dl (3.4-5.0); ANION GAP 8 (8-16); CALCIUM 8.9 mg/dL (8.5-10.1); CO2 27 mmol/L (21-32); CREATININE 2.4 mg/dL (0.7-1.3); GLUCOSE,RANDOM 140 mg/dL (74-106); SGOT/AST 16 U/L (15-37); SGPT/ALT 21 U/L (12-78)
[2017-08-04 01:21] LABS: ALK PHOS 97 U/L (45-117); BILIRUBIN,TOTAL 0.4 mg/dL (0.2-1.0); TOT PROT 7.6 g/dl (6.4-8.2)
[2017-08-04] MEDS ORDERED: morphine CARPU-JECT 2 MG/1 ML DISP.SYRIN ONE (01:32)
[2017-08-04] MEDS ORDERED: CLINDAMYCIN IVPB 300 MG in DEXTROSE 5%-WATER - 48 ML IVPB ONE (02:33)
--- NOTE | 2017-08-04 07:11 | PDOC ---
*Physical Exam - Vital Signs This is a 47 yom with h/o DM, chronic non-healing right foot ulcers, and osteomyelitis in April 2017, who presents with right diabetic foot ulcers and concern for infection. 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 The patient used to be followed by wound care and hyperbarics but lost his insurance and has not had medical care since May 2017. He just got new insurance and came in to evaluate the chronic nonhealing diabetic foot ulcers which have recently become more painful, swollen, warm, and with drainage. He has been awaiting foot x-ray and official x-ray report read to rule out osteomyelitis. Per night team, the patient did not show signs of local skin/soft tissue infection. Last Vital Signs Temp Pulse Resp BP Pulse Ox 98.3 F 112 H 20 152/88 99 08/03/17 22:18 08/03/17 22:18 08/03/17 22:18 08/03/17 22:18 08/03/17 22:18 - Physical Exam General Appearance: Yes: Nourished, Appropriately Dressed, Obese, Other ( sleeping on left side but easily arousible to voice). No: Apparent Distress HEENT: positive: EOMI, Normal Voice, Hearing Grossly Normal. negative: Scleral Icterus (R), Scleral Icterus (L), Nasal Congestion Neck: positive: Trachea midline, Supple. negative: Tender, Rigid Respiratory/Chest: positive: Lungs Clear, Normal Breath Sounds. negative: Respiratory Distress Cardiovascular: positive: Regular Rhythm, Regular Rate. negative: Murmur Vascular Pulses: Dorsalis-Pedis (R): 2+ Gastrointestinal/Abdominal: positive: Normal Bowel Sounds, Soft. negative: Tender, Organomegaly, Pulsatile Mass, Guarding Musculoskeletal: positive: Normal Inspection. negative: Decreased Range of Motion Extremity: positive: Normal Range of Motion, Tender (right heel tenderness to palpation surrounding deep heel ulcer (into muscle) which is 3x3cm). negative: Cyanosis Integumentary: positive: Normal Color, Dry, Warm, Other (right plantar 3x3cm foot ulcer extending through soft tissue to muscle layer overlying the mid 2nd- 3rd metatarsal, posterior plantar right heel ulcer which is 3x3cm and extends into the muscle layer). negative: Bruising Neurologic: positive: mechanotherapist II-XII NML intact, Fully Oriented, Alert, Normal Mood/ Affect, Normal Response, Motor Strength 5/5 ED Treatment Course - LABORATORY CBC & Chemistry Diagram: 08/04/17 00:15 08/04/17 00:17 - ADDITIONAL ORDERS Additional order review: Laboratory Results 08/04/17 08/04/17 00:17 00:15 Sodium 140 Potassium 4.1 Chloride 105 Carbon Dioxide 27 D Anion Gap 8 BUN 31 H Creatinine 2.4 H D Creat Clearance w eGFR 29.16 Random Glucose 140 H D Calcium 8.9 Total Bilirubin 0.4 D AST 16 D ALT 21 Alkaline Phosphatase 97 C-Reactive Protein 1.6 H D Total Protein 7.6 Albumin 3.1 L D 08/04/17 00:15 RBC 4.12 MCV 81.6 MCHC 34.6 RDW 13.5 MPV 7.8 Neutrophils % 62.2 Lymphocytes % 21.8 Monocytes % 11.6 H Eosinophils % 3.2 Basophils % 1.2 - Medications Given in the ED: ED Medications Discontinued Medications Generic Name Dose Route Start Last Admin Trade Name Freq PRN Reason Stop Dose Admin Clindamycin Phosphate 300 mg/ 50 mls @ 100 mls/hr 08/04/17 02:33 08/04/17 03:24 Dextrose IVPB 08/04/17 03:02 100 mls/hr ONCE ONE Administration Morphine Sulfate 2 mg 08/04/17 01:15 08/04/17 01:36 Morphine Injection - IVPUSH 08/04/17 01:16 2 mg ONCE ONE Administration Oxycodone/Acetaminophen 1 combo 08/04/17 00:07 08/04/17 00:46 Percocet 5/325 - PO 08/04/17 00:08 Not Given ONCE ONE Medical Decision Making - Medical Decision Making 47 yom with DM and recent osteomyelitis who p/w worsened pain, swelling, and drainage to chronic non-healing foot ulcers. CRP high, but WBC not elevated and afebrile. He had his foot x-ray just prior to AM shift change and now awaiting official radiology read. Pt requires pain medication re-dosing, had received morphine last night, now will try tramadol as oxycodone does not work. Radiology reading with concern for possible osteomyelitis of 1st digit interphalangeal space. Call is placed to Dr. Holland, who graciously agrees to admit the patient to IP Med/Surg. Consults placed for ID and Podiatry. *DC/Admit/Observation/Transfer Diagnosis at time of Disposition: Diabetic foot infection, Cellulitis of foot Diabetic foot ulcer Qualifiers: Diabetic foot ulcer location: heel Diabetes mellitus type: type 2 Laterality: right Non-pressure ulcer stage: unspecified non-pressure ulcer stage Qualified Code(s): E11.621 - Type 2 diabetes mellitus with foot ulcer Osteomyelitis Qualifiers: Osteomyelitis type: unspecified type Osteomyelitis location: foot Laterality: right Qualified Code(s): M86.9 - Osteomyelitis, unspecified - Discharge Dispostion Condition at time of disposition: Guarded Admit: Yes - Referrals Referrals: Kesha Livingston [Primary Care Provider] -
[2017-08-04] MEDS ORDERED: traMADol HCL 50 MG TABLET PO ONE (08:18)
[2017-08-04] MEDS ORDERED: traMADol HCL 50 MG TABLET ONE (08:25)
--- NOTE | 2017-08-04 09:37 | PDOC ---
*Physical Exam - Vital Signs Last Vital Signs Temp Pulse Resp BP Pulse Ox 98.3 F 112 H 20 152/88 99 08/03/17 22:18 08/03/17 22:18 08/03/17 22:18 08/03/17 22:18 08/03/17 22:18 ED Treatment Course - LABORATORY CBC & Chemistry Diagram: 08/04/17 00:15 08/04/17 00:17 - ADDITIONAL ORDERS Additional order review: Laboratory Results 08/04/17 08/04/17 00:17 00:15 Sodium 140 Potassium 4.1 Chloride 105 Carbon Dioxide 27 D Anion Gap 8 BUN 31 H Creatinine 2.4 H D Creat Clearance w eGFR 29.16 Random Glucose 140 H D Calcium 8.9 Total Bilirubin 0.4 D AST 16 D ALT 21 Alkaline Phosphatase 97 C-Reactive Protein 1.6 H D Total Protein 7.6 Albumin 3.1 L D 08/04/17 00:15 RBC 4.12 MCV 81.6 MCHC 34.6 RDW 13.5 MPV 7.8 Neutrophils % 62.2 Lymphocytes % 21.8 Monocytes % 11.6 H Eosinophils % 3.2 Basophils % 1.2 - Medications Given in the ED: ED Medications Discontinued Medications Generic Name Dose Route Start Last Admin Trade Name Freq PRN Reason Stop Dose Admin Clindamycin Phosphate 300 mg/ 50 mls @ 100 mls/hr 08/04/17 02:33 08/04/17 03:24 Dextrose IVPB 08/04/17 03:02 100 mls/hr ONCE ONE Administration Morphine Sulfate 2 mg 08/04/17 01:15 08/04/17 01:36 Morphine Injection - IVPUSH 08/04/17 01:16 2 mg ONCE ONE Administration Oxycodone/Acetaminophen 1 combo 08/04/17 00:07 08/04/17 00:46 Percocet 5/325 - PO 08/04/17 00:08 Not Given ONCE ONE Tramadol HCl 50 mg 08/04/17 08:18 08/04/17 08:33 Ultram - PO 08/04/17 08:19 50 mg ONCE ONE Administration Medical Decision Making - Medical Decision Making 08/04/17 09:[address] Luis. received signout on this 47y/o M with h/o diabetes, R foot ulcers, ostemyelitis treated in May via PICC line now p/w increased pain/swelling/drainage to heel ulcer, similar to prior osteomyelitis. afebrile, VSS heel ulcer with surrounding erythema/warmth, otherwise intact distal pulses workup at signout revealed nl WBC but elevated esr/crp. was given iv abx. plan was to check R foot xray then dispo. Given history and high concern for recurrent osteomyelitis in this diabetic with large foot ulcer, would continue IV abx and obtain vascular consult as inpatient. Will admit to Dr. Dean and consult Dr. Thompson. Proceed with IV abx as per previous cxs/sensitivities. *DC/Admit/Observation/Transfer Diagnosis at time of Disposition: Diabetic foot ulcer Qualifiers: Diabetic foot ulcer location: heel Diabetes mellitus type: type 2 Laterality: right Non-pressure ulcer stage: unspecified non-pressure ulcer stage Qualified Code(s): E11.621 - Type 2 diabetes mellitus with foot ulcer; L97.419 - Non- pressure chronic ulcer of right heel and midfoot with unspecified severity Osteomyelitis Qualifiers: Osteomyelitis type: unspecified type Osteomyelitis location: foot Laterality: right Qualified Code(s): M86.9 - Osteomyelitis, unspecified
--- NOTE | 2017-08-04 12:59 | CONSULT ---
Consult Consult Specialty:: Infectious Disease Reason for Consultation:: R foot ulcers - History of Present Illness Chief Complaint: pain around ulcer History of Present Illness: 47 year old male with past medical history of diabetes mellitus (on insulin pump ), chronic R foot ulcers, chronic kidney disease presented to the ED because the ulcer on his R heel has been becoming more painful, swollen, and has produced non-bloody, purulent discharge. Patient is followed by wound care and hyperbarics, but has not had an appointment since May due to insurance issues. He states that he recalls no particular inciting event. Denies having previous infections. He states that the ulcer on his heel has been present for 6 months, and the ulcer on the lateral side of his forefoot has been present for 2 years. He states that there is a new ulcer forming on the medial side of his forefoot for several weeks. Denies recent travel. Lives with his and 2 daughters and 1 small dog. Denies having HIV. Denies hx of infections (Including MRSA). Has had all childhood vaccines. Currently, patient denies fever, chills, nausea , vomiting, chest pain, SOB, abdominal pain. 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: Yes: Peripheral Neuropathy Cardio/Vascular: Yes: HTN Infectious Disease: Yes: Other Endocrine: Yes: Diabetes Mellitus - Past Surgical History Additional Surgical History: Previous surgery on back - doesn't remember exactly the reason - Alcohol/Substance Use Hx Alcohol Use: No History of Substance Use: reports: None - Smoking History Smoking history: Former smoker Have you smoked in the past 12 months: No Aproximately how many cigarettes per day: 2 If you are a former smoker, when did you quit?: 14 yrs ago - Social History Usual Living Arrangement: With Spouse ADL: Independent 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 [Santyl -] 1 applic TP DAILY #1 tube MDD 1 Amlodipine Besylate 10 mg PO DAILY 08/04/17 Aspirin [ASA -] 81 mg PO DAILY 08/04/17 Losartan/Hydrochlorothiazide [Losartan-Hctz 100-12.5 mg Tab] 1 each PO DAILY 04/15 Review of Systems - Review of Systems Constitutional: reports: No Symptoms. denies: Chills, Diaphoresis, Fever, Weakness Eyes: reports: No Symptoms HENT: reports: No Symptoms Neck: reports: No Symptoms Cardiovascular: reports: No Symptoms. denies: Chest Pain, Edema, Palpitations, Shortness of Breath Respiratory: reports: No Symptoms. denies: Cough, SOB, Wheezing Gastrointestinal: reports: No Symptoms. denies: Abdominal Pain, Constipation, Diarrhea, Nausea, Vomiting Musculoskeletal: reports: No Symptoms Integumentary: reports: Wound (3 ulcers on R foot, none on L foot) Neurological: reports: No Symptoms Endocrine: reports: No Symptoms Hematology/Lymphatic: reports: No Symptoms Psychiatric: reports: No Symptoms Physical Exam Vital Signs: Vital Signs Temperature 98.3 F 08/03/17 22:18 Pulse Rate 112 H 08/03/17 22:18 Respiratory Rate 20 08/03/17 22:18 Blood Pressure 152/88 08/03/17 22:18 O2 Sat by Pulse Oximetry (%) 100 08/04/17 07:25 Constitutional: Yes: Well Nourished, No Distress, Calm Eyes: Yes: Conjunctiva Clear, EOM Intact HENT: Yes: Atraumatic, Normocephalic Neck: Yes: Supple, Trachea Midline Cardiovascular: Yes: Regular Rate and Rhythm, S1, S2. No: Gallop, Murmur, Rub Respiratory: Yes: Regular, CTA Bilaterally. No: Rales, Rhonchi, SOB, Stridor, Wheezes Gastrointestinal: Yes: Normal Bowel Sounds, Soft. No: Tenderness Musculoskeletal: Yes: WNL Extremities: Yes: Other Edema: RUE: Trace Peripheral Pulses WNL: Yes Integumentary: Yes: Erythema (Around ulcer on R heel) Wound/Incision: Yes: Open to air (3 diabetic ulcers noted RLE. There is what appears to be a stage III ulcer on the plantar side of R heel draining purulent fluid. There is what appears to be a stage III ulcer on plantar, lateral side of forefoot. There is a third, stage 1 ulcer noted medially on plantar side of the forefoot.), Draining Neurological: Yes: Alert, Oriented, Cran Nerves II-XII Intact ...Motor Strength: WNL Psychiatric: Yes: Alert, Oriented Imaging - Results X-ray: Report Reviewed (XR of R foot: degenerative changes, partially flexed toes, calcaneal spurring with possible soft tissue ulceration/air by the heel. [place] by first MTP joint and distorted interphalangeal joint of great toe with some swelling. These changes may be related to infection/osteomyelitis. Suggest MR or bone scan.) Problem List - Problems (1) Diabetic foot infection Code(s): E11.69 - TYPE 2 DIABETES MELLITUS WITH OTHER SPECIFIED COMPLICATION L08.9 - LOCAL INFECTION OF THE SKIN AND SUBCUTANEOUS TISSUE, UNSP (2) Cellulitis of foot Code(s): L03.119 - CELLULITIS OF UNSPECIFIED PART OF LIMB (3) Diabetes Code(s): E11.9 - TYPE 2 DIABETES MELLITUS WITHOUT COMPLICATIONS Assessment/Plan 47 year old male pmh DM, R foot ulcers, hx of osteomyelitis in R foot, CKD presents with R foot pain 2/2 diabetic ulcer infection - given clindamycin in ED. ID consulted for antibiotic management. -begin zosyn 2.25gm Q6hrs x7days (dosed based on renal function) -suggest proper followup with wound care and hyperbaric oxygen appointments -consider MRI to r/o osteomyelitis -vascular consultation recommended
--- NOTE | 2017-08-04 14:26 | PN ---
Teaching Attending Note Name of Resident: Clifton Colin ATTENDING PHYSICIAN STATEMENT I saw and evaluated the patient. I reviewed the resident's note and discussed the case with the resident. I agree with the resident's findings and plan as documented. SUBJECTIVE: known to me from recent admission in April with calcaneal osteomyelitis- discharged on vancomycin/levaquin/flagyl- took vanco only picc line removed 06/26 in wound care- heel ulcer was dry he didnot f/u in our office as requested now with 2 day history of worsening pain and drainage from the right heel, no fevers OBJECTIVE: Vital Signs Period Temp Pulse Resp BP Sys/Banuelos Pulse Ox Last 24 Hr 98.3 F 112 20 152/88 99-100 cor-rrr lungs clear abd soft,nt right foot with heel ulcer with some surrounding erythema, two shallow plantar ulcers look clean CBC, BMP 08/04/17 00:15 08/04/17 00:17 Microbiology 08/04/17 00:43 Foot - Right Heel Gram Stain - Final 08/04/17 00:43 Foot - Right Plantar Gram Stain - Final ASSESSMENT AND PLAN: chronic heel ulcer with cellulitis- ?chronic osteomyelitis MRI in April with calcaneal osteomyelitis inflammatory markers improved awaiting surgery evaluation empiric zosyn for now diabetes CKD
[2017-08-04] MEDS ORDERED: PIPERACILLIN/TAZOB 2.25 GM 2.25 GM in DEXTROSE 5%-WATER - 50 ML IVPB SCH ×2 (15:00→16:57)
--- NOTE | 2017-08-04 16:17 | HP ---
Admitting History and Physical - Primary Care Physician PCP: Dorie Holland - Admission Chief Complaint: ACUTE WOUND INFECTION History of Present Illness: 47 year old male with past medical history of diabetes mellitus (on insulin pump ), chronic R foot ulcers, chronic kidney disease presented to the ED because the ulcer on his R heel has been becoming more painful, swollen, and has produced non-bloody, purulent discharge. Patient is followed by wound care and hyperbarics, but has not had an appointment since May due to insurance issues. He states that he recalls no particular inciting event. Denies having previous infections. He states that the ulcer on his heel has been present for 6 months, and the ulcer on the lateral side of his forefoot has been present for 2 years. He states that there is a new ulcer forming on the medial side of his forefoot for several weeks. Denies recent travel. Lives with his and 2 daughters and 1 small dog. Denies having HIV. Denies hx of infections (Including MRSA). Has had all childhood vaccines. Currently, patient denies fever, chills, nausea , vomiting, chest pain, SOB, abdominal pain. 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 [Santyl -] 1 applic TP DAILY #1 tube MDD 1 Amlodipine Besylate 10 mg PO DAILY 08/04/17 Aspirin [ASA -] 81 mg PO DAILY 08/04/17 Losartan/Hydrochlorothiazide [Losartan-Hctz 100-12.5 mg Tab] 1 each PO DAILY 04/15 Review of Systems - Review of Systems Constitutional: reports: Loss of Appetite, Weakness Eyes: reports: No Symptoms HENT: reports: No Symptoms Neck: reports: No Symptoms Cardiovascular: reports: No Symptoms Respiratory: reports: No Symptoms Gastrointestinal: reports: No Symptoms Genitourinary: reports: No Symptoms Musculoskeletal: reports: Muscle Pain Integumentary: reports: Wound Neurological: reports: Pre-Existing Deficit Endocrine: reports: Other Hematology/Lymphatic: reports: No Symptoms Psychiatric: reports: No Symptoms Physical Examination Vital Signs: Vital Signs Temperature 98.9 F 08/04/17 11:00 Pulse Rate 75 08/04/17 13:45 Respiratory Rate 18 08/04/17 13:45 Blood Pressure 108/62 08/04/17 13:45 O2 Sat by Pulse Oximetry (%) 95 08/04/17 13:45 Constitutional: Yes: Mild Distress Eyes: Yes: WNL HENT: Yes: WNL Neck: Yes: WNL Cardiovascular: Yes: WNL Respiratory: Yes: WNL Gastrointestinal: Yes: WNL Renal/: Yes: WNL Musculoskeletal: Yes: Muscle Weakness Extremities: Yes: Deformity, Other Edema: No Peripheral Pulses WNL: Yes Integumentary: Yes: Pressure Ulcer (STAGE 3-4 ULCER) Wound/Incision: Yes: Dressing Dry and Intact Neurological: Yes: Pre-Existing Deficit, Unsteady Gait ...Motor Strength: RLE Psychiatric: Yes: WNL Imaging - Results Chest X-ray: Report Reviewed Problem List - Problems (1) Cellulitis of foot Code(s): L03.119 - CELLULITIS OF UNSPECIFIED PART OF LIMB (2) Diabetic foot ulcer Code(s): E11.621 - TYPE 2 DIABETES MELLITUS WITH FOOT ULCER L97.509 - NON-PRESSURE CHRONIC ULCER OTH PRT UNSP FOOT W UNSP SEVERITY Qualifiers: Diabetic foot ulcer location: heel Diabetes mellitus type: type 2 Laterality: right Non-pressure ulcer stage: limited to breakdown of skin Qualified Code(s): E11.621 - Type 2 diabetes mellitus with foot ulcer; L97.509 - Non-pressure chronic ulcer of other part of unspecified foot with unspecified severity (3) Osteomyelitis Code(s): M86.9 - OSTEOMYELITIS, UNSPECIFIED Qualifiers: Osteomyelitis type: unspecified type Osteomyelitis location: foot Laterality: right Qualified Code(s): M86.9 - Osteomyelitis, unspecified (4) Diabetes mellitus, insulin dependent (IDDM), uncontrolled Code(s): E10.65 - TYPE 1 DIABETES MELLITUS WITH HYPERGLYCEMIA Qualifiers: Diabetes mellitus complication detail: with foot ulcer (5) Diabetic infection of right foot Code(s): E11.69 - TYPE 2 DIABETES MELLITUS WITH OTHER SPECIFIED COMPLICATION L08.9 - LOCAL INFECTION OF THE SKIN AND SUBCUTANEOUS TISSUE, UNSP (6) Foot ulcer Code(s): L97.509 - NON-PRESSURE CHRONIC ULCER OTH PRT UNSP FOOT W UNSP SEVERITY Qualifiers: Laterality: right (7) Hypertension Code(s): I10 - ESSENTIAL (PRIMARY) HYPERTENSION Qualifiers: Hypertension type: essential hypertension Qualified Code(s): I10 - Essential (primary) hypertension (8) Renal insufficiency Code(s): N28.9 - DISORDER OF KIDNEY AND URETER, UNSPECIFIED (9) Sepsis Code(s): A41.9 - SEPSIS, UNSPECIFIED ORGANISM Qualifiers: Sepsis type: sepsis due to unspecified organism Qualified Code(s): A41.9 - Sepsis, unspecified organism Assessment/Plan IV ABX MRI R/O OSTEOMYELITIS LABS REVIEWED ID CONSULT PODIATRY AND VASC SX EVAL LIPID PANEL A1C SSI DIABETIC DIET DIETARY FOR COMPLIANCE
[2017-08-04] MEDS ORDERED: INSULIN SLIDING SCALE (NOVOLOG) 1 VIAL SQ SCH (16:30)
[2017-08-04] MEDS ORDERED: PT OWN MED DRAWER 7, Y5N ONE (16:53)
[2017-08-04] MEDS: HYDROCHLOROTHIAZIDE 12.5 MG CAPSULE (FP) PO SCH (16:57)
[2017-08-04] MEDS: LOSARTAN POTASSIUM 50 MG TABLET (FP) PO SCH (16:57)
[2017-08-04] MEDS: HYDROmorphone HCL CARPU-JECT 1 MG/1 ML DISP.SYRIN IVPB PRN (17:07)
[2017-08-04] MEDS ORDERED: DEXTROSE 5%-WATER - 50 ML IVPB ONE (18:56)
[2017-08-04] MEDS ORDERED: PIPERACILLIN/TAZOBACTAM 2.25 GM VIAL IVPB ONE (18:56)
[2017-08-04] MEDS: PIPERACILLIN/TAZOB 2.25 GM 2.25 GM in DEXTROSE 5%-WATER - 50 ML IVPB SCH (19:01)
[2017-08-04] MEDS: DOCUSATE SODIUM 100 MG CAPSULE (FP) PO SCH (22:12)
[2017-08-04] MEDS: HEPARIN NA (PORCINE) 5,000 UNITS/ML 1ML VIAL SQ SCH (22:12)
[2017-08-04] MEDS: ATORVASTATIN CA 10 MG TABLET (FP) PO SCH (22:13)
[2017-08-04] MEDS: oxyCODONE HCL 5 MG TABLET PO PRN (22:18)
[2017-08-04] MEDS: ACETAMINOPHEN 325 MG TABLET (FP) PO PRN (22:18)
[2017-08-05] MEDS ORDERED: PIPERACILLIN/TAZOBACTAM 2.25 GM VIAL IVPB ONE (02:28)
[2017-08-05] MEDS ORDERED: DEXTROSE 5%-WATER - 50 ML IVPB ONE (02:29)
[2017-08-05] MEDS: PIPERACILLIN/TAZOB 2.25 GM 2.25 GM in DEXTROSE 5%-WATER - 50 ML IVPB SCH (02:58)
[2017-08-05 08:07] LABS: MCH 27.7 pg (25.7-33.7); MEAN CELL VOLUME 81.4 fl (80-96); MEAN PLT VOLUME 7.7 fl (7.5-11.1); PLATELET COUNT 279 K/MM3 (134-434); RDW 13.3 % (11.9-15.9); WHITE BLOOD COUNT 6.9 K/mm3 (4.0-10.0)
[2017-08-05 08:17] LABS: ALBUMIN 2.8 g/dl (3.4-5.0); ANION GAP 9 (8-16); CALCIUM 8.7 mg/dL (8.5-10.1); CHOLESTEROL 183 mg/dL (50-200); CO2 27 mmol/L (21-32); CREATININE 1.7 mg/dL (0.7-1.3); GLUCOSE,RANDOM 102 mg/dL (74-106); SGOT/AST 21 U/L (15-37); SGPT/ALT 19 U/L (12-78)
[2017-08-05 08:19] LABS: ALK PHOS 88 U/L (45-117); BILIRUBIN,TOTAL 0.4 mg/dL (0.2-1.0); TOT PROT 7.3 g/dl (6.4-8.2)
--- NOTE | 2017-08-05 09:53 | PN ---
Progress Note, Physician History of Present Illness: Patient seen and examined at bedside. Patient states that he is feeling less pain in his R foot. Denies further drainage. Denies fever, chills, nausea, vomiting, abdominal pain. D/W vascular surgery about not obtaining the MRI due to not changing management. Wears offloading footwear and is compliant. - Current Medication List Current Medications: Active Medications Acetaminophen (Tylenol -) 650 mg PO Q6H PRN PRN Reason: FEVER OR PAIN Last Admin: 08/04/17 22:18 Dose: 650 mg Amlodipine Besylate (Norvasc -) 10 mg PO DAILY [facility] Atorvastatin Calcium (Lipitor -) 10 mg PO HS [facility] Last Admin: 08/04/17 22:13 Dose: 10 mg Collagenase (Santyl -) 1 applic TP DAILY [facility] Docusate Sodium (Colace -) 300 mg PO HS [facility] Last Admin: 08/04/17 22:12 Dose: 300 mg Heparin Sodium (Porcine) (Heparin -) 5,000 unit SQ BID [place] Last Admin: 08/04/17 22:12 Dose: 5,000 unit Hydrochlorothiazide (Hctz -) 12.5 mg PO DAILY [facility] Last Admin: 08/04/17 16:57 Dose: 12.5 mg Hydromorphone HCl (Dilaudid Injection -) 1 mg IVPB Q6H PRN PRN Reason: PAIN Last Admin: 08/04/17 17:07 Dose: 1 mg Piperacillin Sod/Tazobactam (Sod 2.25 gm/ Dextrose) 50 mls @ 100 mls/hr IVPB Q6H-IV [place] PRN Reason: Protocol Insulin Aspart (Novolog Vial Sliding Scale -) 1 vial SQ ACHS [place] PRN Reason: Protocol Last Admin: 08/04/17 18:44 Dose: Not Given Losartan Potassium (Cozaar -) 50 mg PO DAILY [facility] Last Admin: 08/04/17 16:57 Dose: 50 mg Oxycodone HCl (Roxicodone -) 5 mg PO Q6H PRN PRN Reason: PAIN Last Admin: 08/04/17 22:18 Dose: 5 mg - Objective Vital Signs: Vital Signs Temperature 98.4 F 08/05/17 06:00 Pulse Rate 69 08/05/17 06:00 Respiratory Rate 18 08/05/17 06:00 Blood Pressure 102/56 08/05/17 06:00 O2 Sat by Pulse Oximetry (%) 97 08/04/17 21:00 Constitutional: Yes: Well Nourished, No Distress, Calm Eyes: Yes: WNL, Conjunctiva Clear, EOM Intact HENT: Yes: Atraumatic, Normocephalic Neck: Yes: Supple, Trachea Midline Cardiovascular: Yes: Regular Rate and Rhythm, S1, S2. No: Gallop, Murmur, Rub Respiratory: Yes: Regular, CTA Bilaterally. No: Rhonchi, SOB, Stridor, Tachypnea Gastrointestinal: Yes: Normal Bowel Sounds, Soft. No: Tenderness Musculoskeletal: Yes: WNL Extremities: Yes: Other (R foot ulcer, wrapped, not draining fluid) Edema: No Peripheral Pulses WNL: Yes Integumentary: Yes: WNL Wound/Incision: Yes: Clean/Dry, Well Approximated Neurological: Yes: Alert, Oriented, Cran Nerves II-XII Intact ...Motor Strength: WNL Psychiatric: Yes: Alert, Oriented Labs: CBC, BMP 08/05/17 06:50 08/05/17 06:50 Problem List - Problems (1) Diabetic foot infection Code(s): E11.69 - TYPE 2 DIABETES MELLITUS WITH OTHER SPECIFIED COMPLICATION L08.9 - LOCAL INFECTION OF THE SKIN AND SUBCUTANEOUS TISSUE, UNSP (2) Cellulitis of foot Code(s): L03.119 - CELLULITIS OF UNSPECIFIED PART OF LIMB (3) Diabetes Code(s): E11.9 - TYPE 2 DIABETES MELLITUS WITHOUT COMPLICATIONS Qualifiers: Diabetes mellitus type: type 2 Diabetes mellitus complication detail: with unspecified neuropathy Assessment/Plan 47 year old male pmh DM, R foot ulcers, hx of osteomyelitis in R foot, CKD presents with R foot pain 2/2 diabetic ulcer infection -obtain bone biopsy with culture -DC Zosyn -suggest proper followup with wound care and hyperbaric oxygen appointments -no need for MRI -f/u abx based on bone biopsy
[2017-08-05] MEDS ORDERED: PIPERACILLIN/TAZOB 2.25 GM 2.25 GM in DEXTROSE 5%-WATER - 50 ML IVPB SCH (10:00)
--- NOTE | 2017-08-05 10:09 | CONSULT ---
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 Cardio/Vascular: Yes: HTN Infectious Disease: Yes: Other Endocrine: Yes: Diabetes Mellitus - Past Surgical History Additional Surgical History: Previous surgery on back - doesn't remember exactly the reason - Alcohol/Substance Use Hx Alcohol Use: No History of Substance Use: reports: None - Smoking History Smoking history: Former smoker Have you smoked in the past 12 months: No Aproximately how many cigarettes per day: 2 If you are a former smoker, when did you quit?: 14 yrs ago - Social History Usual Living Arrangement: With Spouse ADL: Independent 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 [Santyl -] 1 applic TP DAILY #1 tube MDD 1 Amlodipine Besylate 10 mg PO DAILY 08/04/17 Aspirin [ASA -] 81 mg PO DAILY 08/04/17 Losartan/Hydrochlorothiazide [Losartan-Hctz 100-12.5 mg Tab] 1 each PO DAILY 04/15 Physical Exam Vital Signs: Vital Signs Temperature 98.4 F 08/05/17 06:00 Pulse Rate 69 08/05/17 06:00 Respiratory Rate 18 08/05/17 06:00 Blood Pressure 102/56 08/05/17 06:00 O2 Sat by Pulse Oximetry (%) 97 08/04/17 21:00 Labs: CBC, BMP 08/05/17 06:50 08/05/17 06:50 Assessment/Plan Vascular surgery 47 year old male with past medical history of diabetes mellitus (on insulin pump ), chronic R foot ulcers, chronic kidney disease presented to the ED because the ulcer on his R heel has been becoming more painful, swollen, and has produced non-bloody, purulent discharge. Patient is followed by wound care and hyperbarics, but has not had an appointment since May due to insurance issues. He states that he recalls no particular inciting event. Denies having previous infections. He states that the ulcer on his heel has been present for 6 months, and the ulcer on the lateral side of his forefoot has been present for 2 years. He states that there is a new ulcer forming on the medial side of his forefoot for several weeks. Denies recent travel. Lives with his and 2 daughters and 1 small dog. Denies having HIV. Denies hx of infections (Including MRSA). Has had all childhood vaccines. Currently, patient denies fever, chills, nausea , vomiting, chest pain, SOB, abdominal pain. 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: Yes: Peripheral Neuropathy Cardio/Vascular: Yes: HTN Infectious Disease: Yes: Other Endocrine: Yes: Diabetes Mellitus - Past Surgical History Additional Surgical History: Previous surgery on back - doesn't remember exactly the reason - Alcohol/Substance Use Hx Alcohol Use: No History of Substance Use: reports: None - Smoking History Smoking history: Former smoker Have you smoked in the past 12 months: No Aproximately how many cigarettes per day: 2 If you are a former smoker, when did you quit?: 14 yrs ago - Social History Usual Living Arrangement: With Spouse ADL: Independent 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 [Santyl -] 1 applic TP DAILY #1 tube MDD 1 Amlodipine Besylate 10 mg PO DAILY 08/04/17 Aspirin [ASA -] 81 mg PO DAILY 08/04/17 Losartan/Hydrochlorothiazide [Losartan-Hctz 100-12.5 mg Tab] 1 each PO DAILY 04/15 PE Head -NC/aT Lung - CTA Heart - RRR abd - soft,nt,nd ext - right foot -- plantar and heel ulcer Heel ulcer probes to bone. A/P Pt is no longer working and is compliant with his regimen. His [employer] insurance just restarted on jul 31. Will do debridment of right foot and bone biopsy of heel to aggressively treat. 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 Pt was treated for acute osteo in april with PICC line. Will do debridment.and bone biopsy in am. Will probably need PICC thereafter. Discussed with WILMER Thompson DO
--- NOTE | 2017-08-05 10:23 | PN ---
Progress Note, Physician Chief Complaint: AWAKE ALERT NAD - Current Medication List Current Medications: Active Medications Acetaminophen (Tylenol -) 650 mg PO Q6H PRN PRN Reason: FEVER OR PAIN Last Admin: 08/04/17 22:18 Dose: 650 mg Amlodipine Besylate (Norvasc -) 10 mg PO DAILY [facility] Atorvastatin Calcium (Lipitor -) 10 mg PO HS [facility] Last Admin: 08/04/17 22:13 Dose: 10 mg Collagenase (Santyl -) 1 applic TP DAILY [facility] Docusate Sodium (Colace -) 300 mg PO HS [facility] Last Admin: 08/04/17 22:12 Dose: 300 mg Heparin Sodium (Porcine) (Heparin -) 5,000 unit SQ BID [facility] Last Admin: 08/04/17 22:12 Dose: 5,000 unit Hydrochlorothiazide (Hctz -) 12.5 mg PO DAILY [facility] Last Admin: 08/04/17 16:57 Dose: 12.5 mg Hydromorphone HCl (Dilaudid Injection -) 1 mg IVPB Q6H PRN PRN Reason: PAIN Last Admin: 08/04/17 17:07 Dose: 1 mg Insulin Aspart (Novolog Vial Sliding Scale -) 1 vial SQ ACHS [facility] PRN Reason: Protocol Losartan Potassium (Cozaar -) 50 mg PO DAILY [facility] Last Admin: 08/04/17 16:57 Dose: 50 mg Oxycodone HCl (Roxicodone -) 5 mg PO Q6H PRN PRN Reason: PAIN Last Admin: 08/04/17 22:18 Dose: 5 mg - Objective Vital Signs: Vital Signs Temperature 98.4 F 08/05/17 06:00 Pulse Rate 71 08/05/17 10:13 Respiratory Rate 20 08/05/17 10:13 Blood Pressure 156/88 08/05/17 10:13 O2 Sat by Pulse Oximetry (%) 97 08/04/17 21:00 Constitutional: Yes: No Distress Eyes: Yes: WNL HENT: Yes: WNL Neck: Yes: WNL Cardiovascular: Yes: WNL Respiratory: Yes: WNL Gastrointestinal: Yes: WNL ...Rectal Exam: Yes: WNL, Other Genitourinary: Yes: WNL Musculoskeletal: Yes: Muscle Weakness Extremities: Yes: Deformity Edema: No Peripheral Pulses WNL: Yes Integumentary: Yes: Pressure Ulcer (STAGE 3-4 RIGHT FOOT) Wound/Incision: Yes: Open to air Neurological: Yes: Unsteady Gait ...Motor Strength: RLE Psychiatric: Yes: WNL Labs: CBC, BMP 08/05/17 06:50 08/05/17 06:50 Problem List - Problems (1) Cellulitis of foot Code(s): L03.119 - CELLULITIS OF UNSPECIFIED PART OF LIMB (2) Diabetic foot ulcer Code(s): E11.621 - TYPE 2 DIABETES MELLITUS WITH FOOT ULCER L97.509 - NON-PRESSURE CHRONIC ULCER OTH PRT UNSP FOOT W UNSP SEVERITY Qualifiers: Diabetic foot ulcer location: heel Diabetes mellitus type: type 2 Laterality: right Non-pressure ulcer stage: limited to breakdown of skin Qualified Code(s): E11.621 - Type 2 diabetes mellitus with foot ulcer; L97.509 - Non-pressure chronic ulcer of other part of unspecified foot with unspecified severity (3) Osteomyelitis Code(s): M86.9 - OSTEOMYELITIS, UNSPECIFIED Qualifiers: Osteomyelitis type: unspecified type Osteomyelitis location: foot Laterality: right Qualified Code(s): M86.9 - Osteomyelitis, unspecified (4) Diabetes mellitus, insulin dependent (IDDM), uncontrolled Code(s): E10.65 - TYPE 1 DIABETES MELLITUS WITH HYPERGLYCEMIA Qualifiers: Diabetes mellitus complication detail: with foot ulcer (5) Diabetic infection of right foot Code(s): E11.69 - TYPE 2 DIABETES MELLITUS WITH OTHER SPECIFIED COMPLICATION L08.9 - LOCAL INFECTION OF THE SKIN AND SUBCUTANEOUS TISSUE, UNSP (6) Foot ulcer Code(s): L97.509 - NON-PRESSURE CHRONIC ULCER OTH PRT UNSP FOOT W UNSP SEVERITY Qualifiers: Laterality: right (7) Hypertension Code(s): I10 - ESSENTIAL (PRIMARY) HYPERTENSION Qualifiers: Hypertension type: essential hypertension Qualified Code(s): I10 - Essential (primary) hypertension (8) Renal insufficiency Code(s): N28.9 - DISORDER OF KIDNEY AND URETER, UNSPECIFIED (9) Sepsis Code(s): A41.9 - SEPSIS, UNSPECIFIED ORGANISM Qualifiers: Sepsis type: sepsis due to unspecified organism Qualified Code(s): A41.9 - Sepsis, unspecified organism Assessment/Plan PATIENT TO HAVE BONE BIOPSY TOMORROW VASC SX TO GET SPECIFIC DIAGNOSIS SSI STOP INSULIN PUMP PAIN CONTROL ENDOCRINE CONSULT
[2017-08-05] MEDS: HYDROCHLOROTHIAZIDE 12.5 MG CAPSULE (FP) PO SCH (10:47)
[2017-08-05] MEDS: HEPARIN NA (PORCINE) 5,000 UNITS/ML 1ML VIAL SQ SCH ×2 (10:47→21:34)
[2017-08-05] MEDS: amLODIPine BESYLATE 10 MG TABLET (FP) PO SCH (10:47)
[2017-08-05] MEDS: LOSARTAN POTASSIUM 50 MG TABLET (FP) PO SCH (10:47)
--- NOTE | 2017-08-05 10:56 | PN ---
Teaching Attending Note Name of Resident: Clifton Colin ATTENDING PHYSICIAN STATEMENT I saw and evaluated the patient. I reviewed the resident's note and discussed the case with the resident. I agree with the resident's findings and plan as documented. 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
[2017-08-05] MEDS: COLLAGENASE CLOSTRIDIUM HIST. 30 GRAMS TUBE TP SCH (11:50)
[2017-08-05] MEDS: INSULIN SLIDING SCALE (NOVOLOG) 1 VIAL SQ SCH ×3 (12:00→21:04)
--- NOTE | 2017-08-05 13:24 | CONSULT ---
Consult Consult Specialty:: Nephrology Reason for Consultation:: CKD with acute component - History of Present Illness Chief Complaint: right foot pain History of Present Illness: Pt is a 47 year old male with pmhx of DM and CKD who presents to the ER with right foot pain. He was admitted for treatment of cellulitis. He denies fevers or chills. He was found to have elevated creatinine which has improved overnight. He has not followed in the office since his last visit. He denies dysuria or hematuria. He denies nsaid use. - History Source History Provided By: Patient, Medical Record - Past Medical History QUALITY RN: Yes: Peripheral Neuropathy Cardio/Vascular: Yes: HTN Renal/: Yes: Renal Inusuff Infectious Disease: Yes: Other Endocrine: Yes: Diabetes Mellitus - Past Surgical History Additional Surgical History: Previous surgery on back - doesn't remember exactly the reason - Alcohol/Substance Use Hx Alcohol Use: No History of Substance Use: reports: None - Smoking History Smoking history: Former smoker Have you smoked in the past 12 months: No Aproximately how many cigarettes per day: 2 If you are a former smoker, when did you quit?: 14 yrs ago - Social History Usual Living Arrangement: With Spouse ADL: Independent 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 [Santyl -] 1 applic TP DAILY #1 tube MDD 1 Amlodipine Besylate 10 mg PO DAILY 08/04/17 Aspirin [ASA -] 81 mg PO DAILY 08/04/17 Losartan/Hydrochlorothiazide [Losartan-Hctz 100-12.5 mg Tab] 1 each PO DAILY 04/15 Family Disease History - Family Disease History Family History: Denies Review of Systems - Review of Systems Constitutional: reports: Malaise Eyes: reports: No Symptoms HENT: reports: No Symptoms Neck: reports: No Symptoms Cardiovascular: reports: No Symptoms Respiratory: reports: No Symptoms Gastrointestinal: reports: No Symptoms Genitourinary: reports: No Symptoms Musculoskeletal: reports: Joint Pain, Joint Swelling, Other (dressing in place) Integumentary: reports: Erythema Neurological: reports: No Symptoms Psychiatric: reports: No Symptoms Physical Exam Vital Signs: Vital Signs Temperature 98.4 F 08/05/17 06:00 Pulse Rate 71 08/05/17 10:13 Respiratory Rate 20 08/05/17 10:13 Blood Pressure 156/88 08/05/17 10:13 O2 Sat by Pulse Oximetry (%) 97 08/04/17 21:00 Constitutional: Yes: Calm Eyes: Yes: Conjunctiva Clear HENT: Yes: Atraumatic Cardiovascular: Yes: S1, S2 Respiratory: Yes: CTA Bilaterally Gastrointestinal: Yes: Soft Renal/: Yes: WNL Edema: No Wound/Incision: Yes: Dressing Dry and Intact Neurological: Yes: Oriented Psychiatric: Yes: Oriented Labs: CBC, BMP 08/05/17 06:50 08/05/17 06:50 Laboratory Tests 08/23/16 08/24/16 10/10/16 06:00 06:00 06:59 WBC Hgb BUN Creatinine 1.9 H 1.8 H 1.8 H 04/13/17 05/09/17 05/11/17 06:45 20:51 07:15 WBC Hgb BUN Creatinine 2.1 H 2.5 H 2.1 H 05/12/17 05/13/17 05/14/17 06:20 10:36 06:45 WBC Hgb BUN Creatinine 2.0 H 1.9 H 1.9 H 05/16/17 05/18/17 08/04/17 06:40 06:30 00:15 WBC Hgb 11.6 L D BUN Creatinine 1.8 H 1.8 H 08/05/17 08/05/17 06:50 06:50 WBC 6.9 D Hgb 11.5 L BUN 26 H Creatinine 1.7 H D Problem List - Problems (1) Cellulitis of foot Code(s): L03.119 - CELLULITIS OF UNSPECIFIED PART OF LIMB (2) Diabetic foot infection Code(s): E11.69 - TYPE 2 DIABETES MELLITUS WITH OTHER SPECIFIED COMPLICATION L08.9 - LOCAL INFECTION OF THE SKIN AND SUBCUTANEOUS TISSUE, UNSP (3) Osteomyelitis Code(s): M86.9 - OSTEOMYELITIS, UNSPECIFIED Qualifiers: Osteomyelitis type: unspecified type Osteomyelitis location: foot Laterality: right Qualified Code(s): M86.9 - Osteomyelitis, unspecified (4) Renal insufficiency Code(s): N28.9 - DISORDER OF KIDNEY AND URETER, UNSPECIFIED Assessment/Plan Current Medications Generic Name Dose Route Start Last Admin Trade Name Freq PRN Reason Stop Dose Admin Acetaminophen 650 mg 08/04/17 16:07 08/04/17 22:18 Tylenol - PO 650 mg Q6H PRN Administration FEVER OR PAIN Amlodipine Besylate 10 mg 08/05/17 10:00 08/05/17 10:47 Norvasc - PO 10 mg DAILY [place] Administration Atorvastatin Calcium 10 mg 08/04/17 22:00 08/04/17 22:13 Lipitor - PO 10 mg HS [place] Administration Collagenase 1 applic 08/05/17 10:00 08/05/17 11:50 Santyl - TP 1 applic DAILY [place] Administration Docusate Sodium 300 mg 08/04/17 22:00 08/04/17 22:12 Colace - PO 300 mg HS [place] Administration Heparin Sodium (Porcine) 5,000 unit 08/04/17 22:00 08/05/17 10:47 Heparin - SQ 5,000 unit BID [place] Administration Hydrochlorothiazide 12.5 mg 08/04/17 16:15 08/05/17 10:47 Hctz - PO 12.5 mg DAILY [place] Administration Hydromorphone HCl 1 mg 08/04/17 16:19 08/04/17 17:07 Dilaudid Injection - IVPB 1 mg Q6H PRN Administration PAIN Insulin Aspart 1 vial 08/05/17 11:00 08/05/17 12:00 Novolog Vial Sliding Scale - SQ 2 units ACHS [place] Administration Protocol Losartan Potassium 50 mg 08/04/17 16:15 08/05/17 10:47 Cozaar - PO 50 mg DAILY [place] Administration Oxycodone HCl 5 mg 08/04/17 16:07 08/04/17 22:18 Roxicodone - PO 5 mg Q6H PRN Administration PAIN Impression 1. CKD 2. hx Inguinal lymphadenopathy 3. DEYSI improved 4. DM 5. HTN 6. DFU Plan - renal function is not far from baseline - repeat labs in am - will need outpt follo wup - cont current meds - will follow Dr Matthews
[2017-08-05] MEDS: HYDROmorphone HCL CARPU-JECT 1 MG/1 ML DISP.SYRIN IVPB PRN ×2 (13:52→21:48)
[2017-08-05] MEDS ORDERED: INSULIN (NOVOLOG) ASPART 100 UNITS/ML 10ML VIAL ONE (20:45)
[2017-08-05] MEDS: DOCUSATE SODIUM 100 MG CAPSULE (FP) PO SCH (21:01)
[2017-08-05] MEDS: ATORVASTATIN CA 10 MG TABLET (FP) PO SCH (21:04)
[2017-08-06] MEDS ORDERED: ceFAZolin SODIUM 1 GM VIAL IVPB ONE
[2017-08-06] MEDS: oxyCODONE HCL 5 MG TABLET PO PRN (02:58)
[2017-08-06] MEDS: ACETAMINOPHEN 325 MG TABLET (FP) PO PRN ×2 (02:59→09:22)
[2017-08-06] MEDS: HYDROmorphone HCL CARPU-JECT 1 MG/1 ML DISP.SYRIN IVPB PRN ×2 (03:14→21:50)
[2017-08-06] MEDS: INSULIN SLIDING SCALE (NOVOLOG) 1 VIAL SQ SCH ×3 (06:23→18:17)
--- NOTE | 2017-08-06 09:13 | PN ---
Progress Note, Physician History of Present Illness: Patient seen and examined at bedside. Patient states that he is feeling less pain in his R foot. Denies further drainage. States he had a fever last night which has remitted. Denies chills, nausea, vomiting, abdominal pain. Pt is awaiting bone biopsy around 2:30pm - Current Medication List Current Medications: Active Medications Acetaminophen (Tylenol -) 650 mg PO Q6H PRN PRN Reason: FEVER OR PAIN Last Admin: 08/06/17 02:59 Dose: 650 mg Amlodipine Besylate (Norvasc -) 10 mg PO DAILY [facility] Last Admin: 08/05/17 10:47 Dose: 10 mg Atorvastatin Calcium (Lipitor -) 10 mg PO HS [facility] Last Admin: 08/05/17 21:04 Dose: 10 mg Collagenase (Santyl -) 1 applic TP DAILY [facility] Last Admin: 08/05/17 11:50 Dose: 1 applic Docusate Sodium (Colace -) 300 mg PO HS [facility] Last Admin: 08/05/17 21:01 Dose: 300 mg Heparin Sodium (Porcine) (Heparin -) 5,000 unit SQ BID [facility] Last Admin: 08/05/17 21:34 Dose: 5,000 unit Hydrochlorothiazide (Hctz -) 12.5 mg PO DAILY [facility] Last Admin: 08/05/17 10:47 Dose: 12.5 mg Hydromorphone HCl (Dilaudid Injection -) 1 mg IVPB Q6H PRN PRN Reason: PAIN Last Admin: 08/06/17 03:14 Dose: 1 mg Insulin Aspart (Novolog Vial Sliding Scale -) 1 vial SQ ACHS [place] PRN Reason: Protocol Last Admin: 08/06/17 06:23 Dose: Not Given Losartan Potassium (Cozaar -) 50 mg PO DAILY [facility] Last Admin: 08/05/17 10:47 Dose: 50 mg Oxycodone HCl (Roxicodone -) 5 mg PO Q6H PRN PRN Reason: PAIN Last Admin: 08/06/17 02:58 Dose: 5 mg - Objective Vital Signs: Vital Signs Temperature 98.2 F 08/06/17 09:09 Pulse Rate 90 08/06/17 09:09 Respiratory Rate 20 08/06/17 09:09 Blood Pressure 139/94 08/06/17 09:09 O2 Sat by Pulse Oximetry (%) 97 08/05/17 21:00 Constitutional: Yes: Well Nourished, No Distress, Calm Eyes: Yes: Conjunctiva Clear, EOM Intact HENT: Yes: Atraumatic, Normocephalic Neck: Yes: Supple, Trachea Midline Cardiovascular: Yes: Regular Rate and Rhythm, S1, S2. No: Gallop, Murmur, Rub Respiratory: Yes: Regular, CTA Bilaterally. No: Rales, Rhonchi, SOB, Tachypnea , Wheezes Gastrointestinal: Yes: Normal Bowel Sounds, Soft. No: Tenderness Musculoskeletal: Yes: WNL Extremities: Yes: WNL Edema: No Peripheral Pulses WNL: Yes Integumentary: Yes: WNL Wound/Incision: Yes: Clean/Dry, Dressing Dry and Intact Neurological: Yes: Alert, Oriented ...Motor Strength: WNL Psychiatric: Yes: Alert, Oriented Labs: CBC, BMP 08/05/17 06:50 08/05/17 06:50 Problem List - Problems (1) Diabetic foot infection Code(s): E11.69 - TYPE 2 DIABETES MELLITUS WITH OTHER SPECIFIED COMPLICATION L08.9 - LOCAL INFECTION OF THE SKIN AND SUBCUTANEOUS TISSUE, UNSP (2) Cellulitis of foot Code(s): L03.119 - CELLULITIS OF UNSPECIFIED PART OF LIMB (3) Diabetes Code(s): E11.9 - TYPE 2 DIABETES MELLITUS WITHOUT COMPLICATIONS Qualifiers: Diabetes mellitus type: type 2 Diabetes mellitus complication detail: with unspecified neuropathy Assessment/Plan 47 year old male pmh DM, R foot ulcers, hx of osteomyelitis in R foot, CKD presents with R foot pain 2/2 diabetic ulcer infection -obtain bone biopsy with culture today -f/u abx based on bone biopsy -suggest proper followup with wound care and hyperbaric oxygen appointments -no need for MRI
--- NOTE | 2017-08-06 09:28 | PN ---
Progress Note, Physician Chief Complaint: AWAKE ALERT AWAITING TO BE TRANSFERRED TO O.R. FOR BONE BIOPSY - Current Medication List Current Medications: Active Medications Acetaminophen (Tylenol -) 650 mg PO Q6H PRN PRN Reason: FEVER OR PAIN Last Admin: 08/06/17 09:22 Dose: 650 mg Amlodipine Besylate (Norvasc -) 10 mg PO DAILY [facility] Last Admin: 08/05/17 10:47 Dose: 10 mg Atorvastatin Calcium (Lipitor -) 10 mg PO HS [facility] Last Admin: 08/05/17 21:04 Dose: 10 mg Collagenase (Santyl -) 1 applic TP DAILY [facility] Last Admin: 08/05/17 11:50 Dose: 1 applic Docusate Sodium (Colace -) 300 mg PO HS [facility] Last Admin: 08/05/17 21:01 Dose: 300 mg Enalaprilat (Vasotec Injection -) 2.5 mg IVPB Q6H-IV [place] Hydrochlorothiazide (Hctz -) 12.5 mg PO DAILY [facility] Last Admin: 08/05/17 10:47 Dose: 12.5 mg Hydromorphone HCl (Dilaudid Injection -) 1 mg IVPB Q6H PRN PRN Reason: PAIN Last Admin: 08/06/17 03:14 Dose: 1 mg Insulin Aspart (Novolog Vial Sliding Scale -) 1 vial SQ ACHS [facility] PRN Reason: Protocol Last Admin: 08/06/17 06:23 Dose: Not Given Losartan Potassium (Cozaar -) 50 mg PO DAILY [facility] Last Admin: 08/05/17 10:47 Dose: 50 mg Oxycodone HCl (Roxicodone -) 5 mg PO Q6H PRN PRN Reason: PAIN Last Admin: 08/06/17 02:58 Dose: 5 mg - Objective Vital Signs: Vital Signs Temperature 98.2 F 08/06/17 09:09 Pulse Rate 90 08/06/17 09:09 Respiratory Rate 20 08/06/17 09:09 Blood Pressure 139/94 08/06/17 09:09 O2 Sat by Pulse Oximetry (%) 97 08/05/17 21:00 Constitutional: Yes: Mild Distress Eyes: Yes: WNL HENT: Yes: WNL Neck: Yes: WNL Cardiovascular: Yes: WNL Respiratory: Yes: WNL Gastrointestinal: Yes: WNL Genitourinary: Yes: WNL Musculoskeletal: Yes: WNL Extremities: Yes: Deformity Edema: Yes Peripheral Pulses WNL: Yes Integumentary: Yes: Pressure Ulcer, Skin Tear, Venous Stasis Changes Wound/Incision: Yes: Dressing Dry and Intact Neurological: Yes: Pre-Existing Deficit ...Motor Strength: RLE Psychiatric: Yes: WNL Labs: CBC, BMP 08/05/17 06:50 08/05/17 06:50 Problem List - Problems (1) Cellulitis of foot Code(s): L03.119 - CELLULITIS OF UNSPECIFIED PART OF LIMB (2) Diabetic foot ulcer Code(s): E11.621 - TYPE 2 DIABETES MELLITUS WITH FOOT ULCER L97.509 - NON-PRESSURE CHRONIC ULCER OTH PRT UNSP FOOT W UNSP SEVERITY Qualifiers: Diabetic foot ulcer location: heel Diabetes mellitus type: type 2 Laterality: right Non-pressure ulcer stage: limited to breakdown of skin Qualified Code(s): E11.621 - Type 2 diabetes mellitus with foot ulcer; L97.509 - Non-pressure chronic ulcer of other part of unspecified foot with unspecified severity (3) Osteomyelitis Code(s): M86.9 - OSTEOMYELITIS, UNSPECIFIED Qualifiers: Osteomyelitis type: unspecified type Osteomyelitis location: foot Laterality: right Qualified Code(s): M86.9 - Osteomyelitis, unspecified (4) Diabetes mellitus, insulin dependent (IDDM), uncontrolled Code(s): E10.65 - TYPE 1 DIABETES MELLITUS WITH HYPERGLYCEMIA Qualifiers: Diabetes mellitus complication detail: with foot ulcer (5) Diabetic infection of right foot Code(s): E11.69 - TYPE 2 DIABETES MELLITUS WITH OTHER SPECIFIED COMPLICATION L08.9 - LOCAL INFECTION OF THE SKIN AND SUBCUTANEOUS TISSUE, UNSP (6) Foot ulcer Code(s): L97.509 - NON-PRESSURE CHRONIC ULCER OTH PRT UNSP FOOT W UNSP SEVERITY Qualifiers: Laterality: right (7) Hypertension Code(s): I10 - ESSENTIAL (PRIMARY) HYPERTENSION Qualifiers: Hypertension type: essential hypertension Qualified Code(s): I10 - Essential (primary) hypertension (8) Renal insufficiency Code(s): N28.9 - DISORDER OF KIDNEY AND URETER, UNSPECIFIED (9) Sepsis Code(s): A41.9 - SEPSIS, UNSPECIFIED ORGANISM Qualifiers: Sepsis type: sepsis due to unspecified organism Qualified Code(s): A41.9 - Sepsis, unspecified organism Assessment/Plan BONE BIOPSY RIGHT FOOT TODAY TO RULE OUT OSTEOMYELITIS AND FOR SPECIFICITY OF ORGANISM IV ABX EVENTS OVERNIGHT REVIEWED +FEVER ID FOLLOW UP ENALAPRILAT IV WHILE NPO ONLY
--- NOTE | 2017-08-06 09:30 | PN ---
Progress Note (short form) - Note Progress Note: EKG IN [facility] 2017 NORMAL STRESS TEST 2016 NORMAL NO CONTRAINDICATION TO SURGERY Problem List - Problems (1) Cellulitis of foot Code(s): L03.119 - CELLULITIS OF UNSPECIFIED PART OF LIMB (2) Diabetic foot ulcer Code(s): E11.621 - TYPE 2 DIABETES MELLITUS WITH FOOT ULCER L97.509 - NON-PRESSURE CHRONIC ULCER OTH PRT UNSP FOOT W UNSP SEVERITY Qualifiers: Diabetic foot ulcer location: heel Diabetes mellitus type: type 2 Laterality: right Non-pressure ulcer stage: limited to breakdown of skin Qualified Code(s): E11.621 - Type 2 diabetes mellitus with foot ulcer; L97.509 - Non-pressure chronic ulcer of other part of unspecified foot with unspecified severity (3) Osteomyelitis Code(s): M86.9 - OSTEOMYELITIS, UNSPECIFIED Qualifiers: Osteomyelitis type: unspecified type Osteomyelitis location: foot Laterality: right Qualified Code(s): M86.9 - Osteomyelitis, unspecified (4) Diabetes mellitus, insulin dependent (IDDM), uncontrolled Code(s): E10.65 - TYPE 1 DIABETES MELLITUS WITH HYPERGLYCEMIA Qualifiers: Diabetes mellitus complication detail: with foot ulcer (5) Diabetic infection of right foot Code(s): E11.69 - TYPE 2 DIABETES MELLITUS WITH OTHER SPECIFIED COMPLICATION L08.9 - LOCAL INFECTION OF THE SKIN AND SUBCUTANEOUS TISSUE, UNSP (6) Foot ulcer Code(s): L97.509 - NON-PRESSURE CHRONIC ULCER OTH PRT UNSP FOOT W UNSP SEVERITY Qualifiers: Laterality: right (7) Hypertension Code(s): I10 - ESSENTIAL (PRIMARY) HYPERTENSION Qualifiers: Hypertension type: essential hypertension Qualified Code(s): I10 - Essential (primary) hypertension (8) Renal insufficiency Code(s): N28.9 - DISORDER OF KIDNEY AND URETER, UNSPECIFIED (9) Sepsis Code(s): A41.9 - SEPSIS, UNSPECIFIED ORGANISM Qualifiers: Sepsis type: sepsis due to unspecified organism Qualified Code(s): A41.9 - Sepsis, unspecified organism
[2017-08-06] MEDS ORDERED: ENALAPRILAT DIHYDRATE 2.5 MG/2 ML VIAL IVPB SCH ×3 (10:45→21:00)
[2017-08-06] MEDS: amLODIPine BESYLATE 10 MG TABLET (FP) PO SCH (10:59)
[2017-08-06] MEDS: HYDROCHLOROTHIAZIDE 12.5 MG CAPSULE (FP) PO SCH (10:59)
[2017-08-06] MEDS: LOSARTAN POTASSIUM 50 MG TABLET (FP) PO SCH (10:59)
[2017-08-06] MEDS: COLLAGENASE CLOSTRIDIUM HIST. 30 GRAMS TUBE TP SCH (11:07)
--- NOTE | 2017-08-06 11:08 | PN ---
Teaching Attending Note Name of Resident: Clifton Colin ATTENDING PHYSICIAN STATEMENT I saw and evaluated the patient. I reviewed the resident's note and discussed the case with the resident. I agree with the resident's findings and plan as documented. SUBJECTIVE: C/O foot pain No fever/ chills OBJECTIVE: + plantar and heel ulcers no purulent drainage noted ASSESSMENT AND PLAN: Infected diabetic ulcer/ osteomyelitis For bone bx today
--- NOTE | 2017-08-06 13:12 | PN ---
Progress Note, Physician History of Present Illness: Pt seen and examined at bedside. He is awake and alert. - Current Medication List Current Medications: Active Medications Acetaminophen (Tylenol -) 650 mg PO Q6H PRN PRN Reason: FEVER OR PAIN Last Admin: 08/06/17 09:22 Dose: 650 mg Amlodipine Besylate (Norvasc -) 10 mg PO DAILY [facility] Last Admin: 08/06/17 10:59 Dose: Not Given Atorvastatin Calcium (Lipitor -) 10 mg PO HS [facility] Last Admin: 08/05/17 21:04 Dose: 10 mg Collagenase (Santyl -) 1 applic TP DAILY [facility] Last Admin: 08/06/17 11:07 Dose: Not Given Docusate Sodium (Colace -) 300 mg PO HS [facility] Last Admin: 08/05/17 21:01 Dose: 300 mg Enalaprilat (Vasotec Injection -) 2.5 mg IVPB Q6H-IV [facility] Last Admin: 08/06/17 11:01 Dose: 2.5 mg Hydrochlorothiazide (Hctz -) 12.5 mg PO DAILY [facility] Last Admin: 08/06/17 10:59 Dose: Not Given Hydromorphone HCl (Dilaudid Injection -) 1 mg IVPB Q6H PRN PRN Reason: PAIN Last Admin: 08/06/17 03:14 Dose: 1 mg Insulin Aspart (Novolog Vial Sliding Scale -) 1 vial SQ ACHS [place] PRN Reason: Protocol Last Admin: 08/06/17 11:09 Dose: Not Given Losartan Potassium (Cozaar -) 50 mg PO DAILY [facility] Last Admin: 08/06/17 10:59 Dose: Not Given Oxycodone HCl (Roxicodone -) 5 mg PO Q6H PRN PRN Reason: PAIN Last Admin: 08/06/17 02:58 Dose: 5 mg - Objective Vital Signs: Vital Signs Temperature 98.2 F 08/06/17 09:09 Pulse Rate 90 08/06/17 09:09 Respiratory Rate 20 08/06/17 09:09 Blood Pressure 139/94 08/06/17 09:09 O2 Sat by Pulse Oximetry (%) 97 08/05/17 21:00 Constitutional: Yes: Calm Eyes: Yes: Conjunctiva Clear HENT: Yes: Atraumatic Neck: Yes: Supple Cardiovascular: Yes: S1, S2 Respiratory: Yes: CTA Bilaterally Gastrointestinal: Yes: Normal Bowel Sounds, Soft Genitourinary: Yes: WNL Musculoskeletal: Yes: WNL Edema: No Wound/Incision: Yes: Dressing Dry and Intact Psychiatric: Yes: Oriented Labs: CBC, BMP 08/05/17 06:50 08/05/17 06:50 Problem List - Problems (1) Cellulitis of foot Code(s): L03.119 - CELLULITIS OF UNSPECIFIED PART OF LIMB (2) Diabetic foot infection Code(s): E11.69 - TYPE 2 DIABETES MELLITUS WITH OTHER SPECIFIED COMPLICATION L08.9 - LOCAL INFECTION OF THE SKIN AND SUBCUTANEOUS TISSUE, UNSP (3) Osteomyelitis Code(s): M86.9 - OSTEOMYELITIS, UNSPECIFIED Qualifiers: Osteomyelitis type: unspecified type Osteomyelitis location: foot Laterality: right Qualified Code(s): M86.9 - Osteomyelitis, unspecified (4) Renal insufficiency Code(s): N28.9 - DISORDER OF KIDNEY AND URETER, UNSPECIFIED Assessment/Plan Current Medications Generic Name Dose Route Start Last Admin Trade Name Freq PRN Reason Stop Dose Admin Acetaminophen 650 mg 08/04/17 16:07 08/06/17 09:22 Tylenol - PO 650 mg Q6H PRN Administration FEVER OR PAIN Amlodipine Besylate 10 mg 08/05/17 10:00 08/06/17 10:59 Norvasc - PO Not Given DAILY [place] Atorvastatin Calcium 10 mg 08/04/17 22:00 08/05/17 21:04 Lipitor - PO 10 mg HS [place] Administration Collagenase 1 applic 08/05/17 10:00 08/06/17 11:07 Santyl - TP Not Given DAILY [place] Docusate Sodium 300 mg 08/04/17 22:00 08/05/17 21:01 Colace - PO 300 mg HS [place] Administration Enalaprilat 2.5 mg 08/06/17 10:45 08/06/17 11:01 Vasotec Injection - IVPB 2.5 mg Q6H-IV [place] Administration Hydrochlorothiazide 12.5 mg 08/04/17 16:15 08/06/17 10:59 Hctz - PO Not Given DAILY [place] Hydromorphone HCl 1 mg 08/04/17 16:19 08/06/17 03:14 Dilaudid Injection - IVPB 1 mg Q6H PRN Administration PAIN Insulin Aspart 1 vial 08/05/17 11:00 08/06/17 11:09 Novolog Vial Sliding Scale - SQ Not Given ACHS [facility] Protocol Losartan Potassium 50 mg 08/04/17 16:15 08/06/17 10:59 Cozaar - PO Not Given DAILY [facility] Oxycodone HCl 5 mg 08/04/17 16:07 08/06/17 02:58 Roxicodone - PO 5 mg Q6H PRN Administration PAIN Impression 1. CKD 2. hx Inguinal lymphadenopathy 3. DEYSI improved 4. DM 5. HTN 6. DFU Plan - will order bloodwork for am - pt going for bone biopsy - cont current meds - cont cozaar, stop enaleprilat - will follow Dr Matthews
[2017-08-06] MEDS ORDERED: MIDAZOLAM HCL 2 MG/2 ML SINGLE DOSE VIAL ONE (15:50)
[2017-08-06] MEDS ORDERED: LIDOCAINE HCL 1%, 10 MG/ML (50 mL VIAL) IJ ONE ×2 (16:12)
[2017-08-06] MEDS ORDERED: ONDANSETRON 4 MG/2 ML VIAL IVPUSH PRN ×2 (16:35→17:30)
[2017-08-06] MEDS ORDERED: LACTATED RINGERS SOLUTION 1,000 ML IV SCH (16:45)
--- NOTE | 2017-08-06 16:50 | OP ---
Operative Note - Note: Operative Date: 08/06/17 Pre-Operative Diagnosis: right foot diabetic ulcers. rule out osteo Operation: Excisional debridement of right foot ulcers x2 -- skin, subcutantous tissue,. Bone biopsy of right heel ulcer. Findings: bone sent for culture and path Post-Operative Diagnosis: Same as Pre-op Surgeon: Pierre Thompson Anesthesia: Fractional Estimated Blood Loss (mls): 10 Operative Report Dictated: Yes
[2017-08-06] MEDS ORDERED: oxyCODONE HCL 5 MG TABLET PO PRN (17:30)
[2017-08-06] MEDS ORDERED: ACETAMINOPHEN 325 MG TABLET (FP) PO PRN (17:30)
[2017-08-06] MEDS: LACTATED RINGERS SOLUTION 1,000 ML IV SCH (17:45)
[2017-08-06] MEDS: DOCUSATE SODIUM 100 MG CAPSULE (FP) PO SCH (21:52)
[2017-08-06] MEDS: ATORVASTATIN CA 10 MG TABLET (FP) PO SCH (21:52)
[2017-08-06] MEDS ORDERED: INSULIN SLIDING SCALE (NOVOLOG) 1 VIAL SQ SCH (22:00)
--- NOTE | 2017-08-07 00:19 | CONSULT ---
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 INSPECTION: Yes: Peripheral Neuropathy Cardio/Vascular: Yes: HTN Renal/: Yes: Renal Inusuff Infectious Disease: Yes: Other Endocrine: Yes: Diabetes Mellitus - Past Surgical History Additional Surgical History: Previous surgery on back - doesn't remember exactly the reason - Alcohol/Substance Use Hx Alcohol Use: No History of Substance Use: reports: None - Smoking History Smoking history: Former smoker Have you smoked in the past 12 months: No Aproximately how many cigarettes per day: 2 If you are a former smoker, when did you quit?: 14 yrs ago - Social History Usual Living Arrangement: With Spouse ADL: Independent 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 [Santyl -] 1 applic TP DAILY #1 tube MDD 1 Amlodipine Besylate 10 mg PO DAILY 08/04/17 Aspirin [ASA -] 81 mg PO DAILY 08/04/17 Losartan/Hydrochlorothiazide [Losartan-Hctz 100-12.5 mg Tab] 1 each PO DAILY 04/15 Review of Systems - Review of Systems Constitutional: reports: Loss of Appetite Eyes: reports: Blurred Vision HENT: reports: No Symptoms Neck: reports: Decreased ROM Cardiovascular: reports: No Symptoms Respiratory: reports: No Symptoms Gastrointestinal: reports: No Symptoms Genitourinary: reports: No Symptoms Breasts: reports: No Symptoms Reported Musculoskeletal: reports: Extremity Pain, Muscle Pain, Muscle Cramps, Muscle Weakness Integumentary: reports: No Symptoms Neurological: reports: Dizziness, Unsteady Gait, Weakness Endocrine: reports: Unexplained Weight Gain Hematology/Lymphatic: reports: No Symptoms Physical Exam Vital Signs: Vital Signs Temperature 98.4 F 08/06/17 18:10 Pulse Rate 80 08/06/17 18:10 Respiratory Rate 18 08/06/17 18:10 Blood Pressure 143/73 08/06/17 18:10 O2 Sat by Pulse Oximetry (%) 95 08/06/17 18:00 Constitutional: Yes: Anxious Eyes: Yes: EOM Intact HENT: Yes: Normocephalic Neck: Yes: Trachea Midline Cardiovascular: Yes: Regular Rate and Rhythm Respiratory: Yes: CTA Bilaterally Gastrointestinal: Yes: Normal Bowel Sounds ...Rectal Exam: Yes: Deferred Renal/: Yes: WNL Breast(s): Yes: WNL Musculoskeletal: Yes: Joint Swelling, Muscle Pain, Muscle Weakness Extremities: Yes: Delayed Capillary Refill, Other (rt foot wound dressed sp bone bx) Edema: Yes Edema: LLE: 2+, RLE: 2+ Wound/Incision: Yes: Dressing Dry and Intact Neurological: Yes: Alert, Oriented Labs: CBC, BMP 08/05/17 06:50 08/05/17 06:50 Problem List - Problems (1) Diabetic foot infection Code(s): E11.69 - TYPE 2 DIABETES MELLITUS WITH OTHER SPECIFIED COMPLICATION L08.9 - LOCAL INFECTION OF THE SKIN AND SUBCUTANEOUS TISSUE, UNSP (2) Diabetic foot ulcer Code(s): E11.621 - TYPE 2 DIABETES MELLITUS WITH FOOT ULCER L97.509 - NON-PRESSURE CHRONIC ULCER OTH PRT UNSP FOOT W UNSP SEVERITY Qualifiers: Diabetic foot ulcer location: heel Diabetes mellitus type: type 2 Laterality: right Non-pressure ulcer stage: limited to breakdown of skin Qualified Code(s): E11.621 - Type 2 diabetes mellitus with foot ulcer; L97.509 - Non-pressure chronic ulcer of other part of unspecified foot with unspecified severity (3) Osteomyelitis Code(s): M86.9 - OSTEOMYELITIS, UNSPECIFIED Qualifiers: Osteomyelitis type: unspecified type Osteomyelitis location: foot Laterality: right Qualified Code(s): M86.9 - Osteomyelitis, unspecified (4) Diabetes mellitus, insulin dependent (IDDM), uncontrolled Code(s): E10.65 - TYPE 1 DIABETES MELLITUS WITH HYPERGLYCEMIA Qualifiers: Diabetes mellitus complication detail: with foot ulcer (5) Diabetic infection of right foot Code(s): E11.69 - TYPE 2 DIABETES MELLITUS WITH OTHER SPECIFIED COMPLICATION L08.9 - LOCAL INFECTION OF THE SKIN AND SUBCUTANEOUS TISSUE, UNSP Assessment/Plan Current Active Problems Cellulitis of foot (Acute) Diabetic foot infection (Acute) Diabetic foot ulcer (Acute) Osteomyelitis (Acute) dm uncontrolled hyperglycemia insulin requiring Abnormal Lab Results 08/05/17 06:50 BUN 26 H Creatinine 1.7 H D Albumin 2.8 L Triglycerides 249 H D Total LDL Cholesterol 117 H HDL Cholesterol 34 L Laboratory Results - last 24 hr 08/05/17 08/05/17 08/05/17 06:50 17:28 20:59 Sodium 140 Potassium 4.1 Chloride 104 Carbon Dioxide 27 Anion Gap 9 BUN 26 H Creatinine 1.7 H D Creat Clearance w eGFR 43.42 POC Glucometer 233 308 Random Glucose 102 D Calcium 8.7 Total Bilirubin 0.4 AST 21 D ALT 19 Alkaline Phosphatase 88 Total Protein 7.3 Albumin 2.8 L Triglycerides 249 H D Cholesterol 183 Total LDL Cholesterol 117 H HDL Cholesterol 34 L 08/06/17 08/06/17 08/06/17 06:23 11:05 17:53 Sodium Potassium Chloride Carbon Dioxide Anion Gap BUN Creatinine Creat Clearance w eGFR POC Glucometer 239 222 149 Random Glucose Calcium Total Bilirubin AST ALT Alkaline Phosphatase Total Protein Albumin Triglycerides Cholesterol Total LDL Cholesterol HDL Cholesterol 08/06/17 21:54 Sodium Potassium Chloride Carbon Dioxide Anion Gap BUN Creatinine Creat Clearance w eGFR POC Glucometer 318 Random Glucose Calcium Total Bilirubin AST ALT Alkaline Phosphatase Total Protein Albumin Triglycerides Cholesterol Total LDL Cholesterol HDL Cholesterol plan: bgm qid novolog insulin coverage levemir while off pump 40 units am 20 units hs
[2017-08-07] MEDS: INSULIN SLIDING SCALE (NOVOLOG) 1 VIAL SQ SCH ×4 (06:34→21:56)
[2017-08-07] MEDS: LACTATED RINGERS SOLUTION 1,000 ML IV SCH ×2 (06:36→18:33)
--- NOTE | 2017-08-07 07:03 | OP ---
DATE OF OPERATION: 08/06/2017 PREOPERATIVE DIAGNOSIS: Right foot diabetic foot ulcers, rule out osteomyelitis. POSTOPERATIVE DIAGNOSIS: Right foot diabetic foot ulcers, rule out osteomyelitis. PROCEDURE: Excisional debridement of skin and subcutaneous tissue x2; bone biopsy, right heel. SURGEON: Pierre Capellan DO ANESTHESIA: Fractional. BLOOD LOSS: 10 mL. The patient is a 47-year-old male that has chronic diabetic foot ulcers, 1 on the plantar aspect and 1 on the right heel. He came into the hospital the other day because he was having severe pain in the right foot. Patient is on IV antibiotics and it was decided that patient would need a bone biopsy of the right heel because the wound probes down to bone and we can aggressively treat it. 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 Patient was consented for the procedure, understanding the risks, benefits, and alternatives. Then taken to the operating room. Once in the operating room, placed on the operating table in the supine manner. Then, using a curet we were able to do an excisional debridement of the plantar ulcer going down through skin and subcutaneous tissue. We then went to the right heel and we used a bone biopsy kit and we were able to place the bone biopsy needle into the right heel and we were then able to extract bone. Two pieces of bone were extracted and sent for culture and pathology. We then used a curet and debridement was performed down through skin and subcutaneous tissue. We then irrigated the wound copiously. We then packed the wound with a wet 4 x 4; 4 x 4's and Kerlix were placed on the foot. Patient tolerated the procedure with no complication. Patient transferred to PACU in stable condition. PIERRE CAPELLAN DO RIVETER HELPER/[id number]
[2017-08-07 07:19] LABS: MCH 27.7 pg (25.7-33.7); MCHC 34.3 g/dl (32.0-35.9); MEAN CELL VOLUME 80.7 fl (80-96); MEAN PLT VOLUME 7.6 fl (7.5-11.1); PLATELET COUNT 241 K/MM3 (134-434); RDW 13.1 % (11.9-15.9); WHITE BLOOD COUNT 6.4 K/mm3 (4.0-10.0)
[2017-08-07 07:46] LABS: ANION GAP 8 (8-16); CALCIUM 8.5 mg/dL (8.5-10.1); CO2 25 mmol/L (21-32); CREATININE 1.7 mg/dL (0.7-1.3); GLUCOSE,RANDOM 154 mg/dL (74-106)
--- NOTE | 2017-08-07 09:36 | PN ---
Progress Note, Physician Chief Complaint: AWAKE ALERT TOLERATED BONE BIOPSY +APPETITE DENIES FEVER OR CHILLS - Current Medication List Current Medications: Active Medications Acetaminophen (Tylenol -) 650 mg PO Q6H PRN PRN Reason: FEVER OR PAIN Amlodipine Besylate (Norvasc -) 10 mg PO DAILY [facility] Atorvastatin Calcium (Lipitor -) 10 mg PO HS [facility] Last Admin: 08/06/17 21:52 Dose: 10 mg Collagenase (Santyl -) 1 applic TP DAILY [facility] Docusate Sodium (Colace -) 300 mg PO HS [facility] Last Admin: 08/06/17 21:52 Dose: 300 mg Hydrochlorothiazide (Hctz -) 12.5 mg PO DAILY [facility] Hydromorphone HCl (Dilaudid Injection -) 1 mg IVPB Q6H PRN PRN Reason: PAIN Last Admin: 08/06/17 21:50 Dose: 1 mg Lactated Ringer's (Lactated Ringers Solution) 1,000 mls @ 75 mls/hr IV ASDIR [facility] Last Admin: 08/07/17 06:36 Dose: 75 mls/hr Insulin Aspart (Novolog Vial Sliding Scale -) 1 vial SQ ACHS [facility] PRN Reason: Protocol Last Admin: 08/07/17 06:34 Dose: 5 units Insulin Detemir (Levemir Vial) 20 units SQ BID [facility] Losartan Potassium (Cozaar -) 50 mg PO DAILY [facility] Oxycodone HCl (Roxicodone -) 5 mg PO Q6H PRN PRN Reason: PAIN - Objective Vital Signs: Vital Signs Temperature 99.0 F 08/07/17 07:03 Pulse Rate 92 H 08/07/17 07:03 Respiratory Rate 16 08/07/17 07:03 Blood Pressure 144/84 08/07/17 07:03 O2 Sat by Pulse Oximetry (%) 96 08/06/17 22:00 Constitutional: Yes: No Distress Eyes: Yes: WNL HENT: Yes: WNL Neck: Yes: WNL Cardiovascular: Yes: WNL Respiratory: Yes: WNL Gastrointestinal: Yes: WNL Genitourinary: Yes: WNL Musculoskeletal: Yes: WNL Extremities: Yes: Deformity Edema: Yes Edema: LLE: Trace, RLE: Trace Peripheral Pulses WNL: Yes Integumentary: Yes: Incision, Venous Stasis Changes Wound/Incision: Yes: Dressing Dry and Intact Neurological: Yes: Pre-Existing Deficit, Unsteady Gait ...Motor Strength: RLE Psychiatric: Yes: WNL Labs: CBC, BMP 08/07/17 06:15 08/07/17 06:15 Problem List - Problems (1) Cellulitis of foot Code(s): L03.119 - CELLULITIS OF UNSPECIFIED PART OF LIMB (2) Diabetic foot ulcer Code(s): E11.621 - TYPE 2 DIABETES MELLITUS WITH FOOT ULCER L97.509 - NON-PRESSURE CHRONIC ULCER OTH PRT UNSP FOOT W UNSP SEVERITY Qualifiers: Diabetic foot ulcer location: heel Diabetes mellitus type: type 2 Laterality: right Non-pressure ulcer stage: limited to breakdown of skin Qualified Code(s): E11.621 - Type 2 diabetes mellitus with foot ulcer; L97.509 - Non-pressure chronic ulcer of other part of unspecified foot with unspecified severity (3) Osteomyelitis Code(s): M86.9 - OSTEOMYELITIS, UNSPECIFIED Qualifiers: Osteomyelitis type: unspecified type Osteomyelitis location: foot Laterality: right Qualified Code(s): M86.9 - Osteomyelitis, unspecified (4) Diabetes mellitus, insulin dependent (IDDM), uncontrolled Code(s): E10.65 - TYPE 1 DIABETES MELLITUS WITH HYPERGLYCEMIA Qualifiers: Diabetes mellitus complication detail: with foot ulcer (5) Diabetic infection of right foot Code(s): E11.69 - TYPE 2 DIABETES MELLITUS WITH OTHER SPECIFIED COMPLICATION L08.9 - LOCAL INFECTION OF THE SKIN AND SUBCUTANEOUS TISSUE, UNSP (6) Foot ulcer Code(s): L97.509 - NON-PRESSURE CHRONIC ULCER OTH PRT UNSP FOOT W UNSP SEVERITY Qualifiers: Laterality: right (7) Hypertension Code(s): I10 - ESSENTIAL (PRIMARY) HYPERTENSION Qualifiers: Hypertension type: essential hypertension Qualified Code(s): I10 - Essential (primary) hypertension (8) Renal insufficiency Code(s): N28.9 - DISORDER OF KIDNEY AND URETER, UNSPECIFIED (9) Sepsis Code(s): A41.9 - SEPSIS, UNSPECIFIED ORGANISM Qualifiers: Sepsis type: sepsis due to unspecified organism Qualified Code(s): A41.9 - Sepsis, unspecified organism Assessment/Plan SSI RESTART IV ABX AWAIT BONE BIOPSY RESULT PAIN CONTROL DVT PROPHYLAXIS
[2017-08-07] MEDS: HYDROCHLOROTHIAZIDE 12.5 MG CAPSULE (FP) PO SCH (10:24)
[2017-08-07] MEDS: amLODIPine BESYLATE 10 MG TABLET (FP) PO SCH (10:24)
[2017-08-07] MEDS: LOSARTAN POTASSIUM 50 MG TABLET (FP) PO SCH (10:24)
[2017-08-07] MEDS: INSULIN DETEMIR 100 UNITS/ML MDV SQ SCH ×2 (10:25→21:57)
[2017-08-07] MEDS: COLLAGENASE CLOSTRIDIUM HIST. 30 GRAMS TUBE TP SCH (12:33)
--- NOTE | 2017-08-07 12:47 | PN ---
Teaching Attending Note Name of Resident: Clifton Colin ATTENDING PHYSICIAN STATEMENT I saw and evaluated the patient. I reviewed the resident's note and discussed the case with the resident. I agree with the resident's findings and plan as documented. SUBJECTIVE: s/p debridement of ulcer and biopsy of bone bloody dressing noted OBJECTIVE: Vital Signs Period Temp Pulse Resp BP Sys/Banuelos Pulse Ox Last 24 Hr 97.9 F-99.4 F 74-102 14-18 123-165/69-97 95-100 bloody dressing noted CBC, BMP 08/07/17 06:15 08/07/17 06:15 Microbiology 08/04/17 00:43 Foot - Right Plantar Gram Stain - Final 08/04/17 00:43 Foot - Right Plantar Wound Culture - Final Acinetobacter Baumannii/Haemol Stenotrophomon.(X.)Maltophilia Strep Agalactiae Group B Enterococcus Faecalis Diphtheroid/Corynebacterium Staphylococcus Coagulase Neg 08/04/17 00:43 Foot - Right Heel Gram Stain - Final 08/04/17 00:43 Foot - Right Heel Wound Culture - Preliminary Lactose Fermenting Neg Bacilli Stenotrophomon.(X.)Maltophilia Strep Agalactiae Group B Enterococcus Faecalis Diphtheroid/Corynebacterium Staphylococcus Coagulase Neg Streptococcus Viridans ASSESSMENT AND PLAN: s/p debridement and bone biopsy start unasyn and f/u cultures surgical f/u of wound diabetes- needs better glucose control
[2017-08-07] MEDS: AMPICILLIN NA/SULBACTAM NA 3 GM in SODIUM CHLORIDE 100 ML IVPB SCH ×2 (12:49→17:06)
--- NOTE | 2017-08-07 13:36 | PN ---
Progress Note, Physician History of Present Illness: Patient seen and examined at bedside. Patient is s/p OR debridement of diabetic ulcers of his R foot by Dr. Pierre durbin. Cultures were obtained. Patient denies pain in that foot. States that it has bled since the procedure. Denies fever, chills, nausea, vomiting, abdominal pain. - Current Medication List Current Medications: Active Medications Acetaminophen (Tylenol -) 650 mg PO Q6H PRN PRN Reason: FEVER OR PAIN Amlodipine Besylate (Norvasc -) 10 mg PO DAILY [facility] Last Admin: 08/07/17 10:24 Dose: 10 mg Atorvastatin Calcium (Lipitor -) 10 mg PO HS [facility] Last Admin: 08/06/17 21:52 Dose: 10 mg Collagenase (Santyl -) 1 applic TP DAILY [facility] Last Admin: 08/07/17 12:33 Dose: Not Given Docusate Sodium (Colace -) 300 mg PO HS [facility] Last Admin: 08/06/17 21:52 Dose: 300 mg Hydrochlorothiazide (Hctz -) 12.5 mg PO DAILY [facility] Last Admin: 08/07/17 10:24 Dose: 12.5 mg Hydromorphone HCl (Dilaudid Injection -) 1 mg IVPB Q6H PRN PRN Reason: PAIN Last Admin: 08/06/17 21:50 Dose: 1 mg Lactated Ringer's (Lactated Ringers Solution) 1,000 mls @ 75 mls/hr IV ASDIR [facility] Last Admin: 08/07/17 06:36 Dose: 75 mls/hr Ampicillin Sodium/Sulbactam (Sodium 3 gm/ Sodium Chloride) 100 mls @ 200 mls/ hr IVPB Q8H-IV [facility] Last Admin: 08/07/17 12:49 Dose: 200 mls/hr Insulin Aspart (Novolog Vial Sliding Scale -) 1 vial SQ ACHS [facility] PRN Reason: Protocol Last Admin: 08/07/17 11:23 Dose: 3 units Insulin Detemir (Levemir Vial) 20 units SQ BID [facility] Last Admin: 08/07/17 10:25 Dose: 20 units Losartan Potassium (Cozaar -) 50 mg PO DAILY [facility] Last Admin: 08/07/17 10:24 Dose: 50 mg Oxycodone HCl (Roxicodone -) 5 mg PO Q6H PRN PRN Reason: PAIN - Objective Vital Signs: Vital Signs Temperature 97.9 F 08/07/17 10:00 Pulse Rate 86 08/07/17 10:00 Respiratory Rate 18 08/07/17 10:00 Blood Pressure 160/75 08/07/17 10:00 O2 Sat by Pulse Oximetry (%) 96 08/06/17 22:00 Constitutional: Yes: No Distress, Calm Eyes: Yes: Conjunctiva Clear, EOM Intact HENT: Yes: Atraumatic, Normocephalic Neck: Yes: Supple, Trachea Midline Cardiovascular: Yes: Regular Rate and Rhythm, S1, S2. No: Gallop, Murmur, Rub Respiratory: Yes: Regular, CTA Bilaterally. No: Rales, SOB, SOB on Exertion, Stridor, Tachypnea, Wheezes Gastrointestinal: Yes: Normal Bowel Sounds, Soft. No: Tenderness Musculoskeletal: Yes: WNL Extremities: Yes: Erythema, Other (R foot has bleeding from wounds on heel and forefoot. Dressing is wet.) Edema: No Peripheral Pulses WNL: Yes Integumentary: Yes: WNL Wound/Incision: Yes: Draining (R foot has red drainage/bleeding from wounds on heel and forefoot. Dressing is wet.), Unapproximated Neurological: Yes: Alert, Oriented, Cran Nerves II-XII Intact ...Motor Strength: WNL Psychiatric: Yes: Alert, Oriented Labs: CBC, BMP 08/07/17 06:15 08/07/17 06:15 - ....Imaging X-ray: Report Reviewed Problem List - Problems (1) Diabetic foot infection Code(s): E11.69 - TYPE 2 DIABETES MELLITUS WITH OTHER SPECIFIED COMPLICATION L08.9 - LOCAL INFECTION OF THE SKIN AND SUBCUTANEOUS TISSUE, UNSP (2) Cellulitis of foot Code(s): L03.119 - CELLULITIS OF UNSPECIFIED PART OF LIMB (3) Diabetes Code(s): E11.9 - TYPE 2 DIABETES MELLITUS WITHOUT COMPLICATIONS Qualifiers: Diabetes mellitus type: type 2 Diabetes mellitus complication detail: with unspecified neuropathy Assessment/Plan 47 year old male pmh DM, R foot ulcers, hx of osteomyelitis in R foot, CKD presents with R foot pain 2/2 diabetic ulcer infection, s/p debridement of R foot ulcers with cultures -f/u cultures -start unasyn 3g Q8h until cultures return -suggest proper followup with wound care and hyperbaric oxygen appointments -f/u vascular surgery for examination of drainage on dressings
--- NOTE | 2017-08-07 14:35 | PN ---
Progress Note, Physician History of Present Illness: Pt seen and examined at bedside. He is awake and alert. He denies shortness of breath. - Current Medication List Current Medications: Active Medications Acetaminophen (Tylenol -) 650 mg PO Q6H PRN PRN Reason: FEVER OR PAIN Amlodipine Besylate (Norvasc -) 10 mg PO DAILY [facility] Last Admin: 08/07/17 10:24 Dose: 10 mg Atorvastatin Calcium (Lipitor -) 10 mg PO HS [facility] Last Admin: 08/06/17 21:52 Dose: 10 mg Collagenase (Santyl -) 1 applic TP DAILY [facility] Last Admin: 08/07/17 12:33 Dose: Not Given Docusate Sodium (Colace -) 300 mg PO HS [facility] Last Admin: 08/06/17 21:52 Dose: 300 mg Hydrochlorothiazide (Hctz -) 12.5 mg PO DAILY [facility] Last Admin: 08/07/17 10:24 Dose: 12.5 mg Hydromorphone HCl (Dilaudid Injection -) 1 mg IVPB Q6H PRN PRN Reason: PAIN Last Admin: 08/06/17 21:50 Dose: 1 mg Lactated Ringer's (Lactated Ringers Solution) 1,000 mls @ 75 mls/hr IV ASDIR [facility] Last Admin: 08/07/17 06:36 Dose: 75 mls/hr Ampicillin Sodium/Sulbactam (Sodium 3 gm/ Sodium Chloride) 100 mls @ 200 mls/ hr IVPB Q8H-IV [facility] Last Admin: 08/07/17 12:49 Dose: 200 mls/hr Insulin Aspart (Novolog Vial Sliding Scale -) 1 vial SQ ACHS [facility] PRN Reason: Protocol Last Admin: 08/07/17 11:23 Dose: 3 units Insulin Detemir (Levemir Vial) 20 units SQ BID [facility] Last Admin: 08/07/17 10:25 Dose: 20 units Losartan Potassium (Cozaar -) 50 mg PO DAILY [facility] Last Admin: 08/07/17 10:24 Dose: 50 mg Oxycodone HCl (Roxicodone -) 5 mg PO Q6H PRN PRN Reason: PAIN - Objective Vital Signs: Vital Signs Temperature 97.9 F 08/07/17 10:00 Pulse Rate 86 08/07/17 10:00 Respiratory Rate 18 08/07/17 10:00 Blood Pressure 160/75 08/07/17 10:00 O2 Sat by Pulse Oximetry (%) 96 08/06/17 22:00 Constitutional: Yes: Calm Eyes: Yes: Conjunctiva Clear HENT: Yes: Atraumatic Neck: Yes: Supple Cardiovascular: Yes: S1, S2 Respiratory: Yes: CTA Bilaterally Gastrointestinal: Yes: Normal Bowel Sounds, Soft Genitourinary: Yes: WNL Edema: No Wound/Incision: Yes: Draining Psychiatric: Yes: Oriented Labs: CBC, BMP 08/07/17 06:15 08/07/17 06:15 Problem List - Problems (1) Cellulitis of foot Code(s): L03.119 - CELLULITIS OF UNSPECIFIED PART OF LIMB (2) Diabetic foot infection Code(s): E11.69 - TYPE 2 DIABETES MELLITUS WITH OTHER SPECIFIED COMPLICATION L08.9 - LOCAL INFECTION OF THE SKIN AND SUBCUTANEOUS TISSUE, UNSP (3) Osteomyelitis Code(s): M86.9 - OSTEOMYELITIS, UNSPECIFIED Qualifiers: Osteomyelitis type: unspecified type Osteomyelitis location: foot Laterality: right Qualified Code(s): M86.9 - Osteomyelitis, unspecified (4) Renal insufficiency Code(s): N28.9 - DISORDER OF KIDNEY AND URETER, UNSPECIFIED Assessment/Plan Current Medications Generic Name Dose Route Start Last Admin Trade Name Freq PRN Reason Stop Dose Admin Acetaminophen 650 mg 08/06/17 17:30 Tylenol - PO Q6H PRN FEVER OR PAIN Amlodipine Besylate 10 mg 08/07/17 10:00 08/07/17 10:24 Norvasc - PO 10 mg DAILY [facility] Administration Atorvastatin Calcium 10 mg 08/06/17 22:00 08/06/17 21:52 Lipitor - PO 10 mg HS [facility] Administration Collagenase 1 applic 08/07/17 10:00 08/07/17 12:33 Santyl - TP Not Given DAILY [facility] Docusate Sodium 300 mg 08/06/17 22:00 08/06/17 21:52 Colace - PO 300 mg HS [facility] Administration Hydrochlorothiazide 12.5 mg 08/07/17 10:00 08/07/17 10:24 Hctz - PO 12.5 mg DAILY [facility] Administration Hydromorphone HCl 1 mg 08/06/17 17:30 08/06/17 21:50 Dilaudid Injection - IVPB 1 mg Q6H PRN Administration PAIN Lactated Ringer's 1,000 mls @ 75 mls/hr 08/06/17 17:30 08/07/17 06:36 Lactated Ringers Solution IV 75 mls/hr ASDIR [facility] Administration Ampicillin Sodium/Sulbactam 100 mls @ 200 mls/hr 08/07/17 12:00 08/07/17 12:49 Sodium 3 gm/ Sodium Chloride IVPB 200 mls/hr Q8H-IV [facility] Administration Insulin Aspart 1 vial 08/07/17 00:23 08/07/17 11:23 Novolog Vial Sliding Scale - SQ 3 units ACHS [facility] Administration Protocol Insulin Detemir 20 units 08/07/17 10:00 08/07/17 10:25 Levemir Vial SQ 20 units BID [facility] Administration Losartan Potassium 50 mg 08/07/17 10:00 08/07/17 10:24 Cozaar - PO 50 mg DAILY [facility] Administration Oxycodone HCl 5 mg 08/06/17 17:30 Roxicodone - PO Q6H PRN PAIN Impression 1. CKD 2. hx Inguinal lymphadenopathy 3. DEYSI improved 4. DM 5. HTN 6. DFU Plan - renal function is stable - can stop fluids - check bmp - cont cozaar - abx per ID - will follow Dr Matthews
--- NOTE | 2017-08-07 16:31 | PN ---
Progress Note (short form) - Note Progress Note: Vascular Surgery S/P debridement Dressing changed Santyl daily to wounds. Awaiting bone biopsy Pierre Thompson DO
[2017-08-07] MEDS: HYDROmorphone HCL CARPU-JECT 1 MG/1 ML DISP.SYRIN IVPB PRN ×2 (16:42→22:23)
[2017-08-07] MEDS ORDERED: INSULIN (NOVOLOG) ASPART 100 UNITS/ML 10ML VIAL ONE (20:56)
[2017-08-07] MEDS: DOCUSATE SODIUM 100 MG CAPSULE (FP) PO SCH (21:49)
[2017-08-07] MEDS: ATORVASTATIN CA 10 MG TABLET (FP) PO SCH (21:49)
[2017-08-08] MEDS: AMPICILLIN NA/SULBACTAM NA 3 GM in SODIUM CHLORIDE 100 ML IVPB SCH ×3 (01:49→18:41)
[2017-08-08] MEDS: INSULIN SLIDING SCALE (NOVOLOG) 1 VIAL SQ SCH ×4 (06:38→22:48)
--- NOTE | 2017-08-08 09:33 | PN ---
Progress Note, Physician History of Present Illness: NO COMPLAINTS - Current Medication List Current Medications: Active Medications Acetaminophen (Tylenol -) 650 mg PO Q6H PRN PRN Reason: FEVER OR PAIN Amlodipine Besylate (Norvasc -) 10 mg PO DAILY [facility] Last Admin: 08/07/17 10:24 Dose: 10 mg Atorvastatin Calcium (Lipitor -) 10 mg PO HS [facility] Last Admin: 08/07/17 21:49 Dose: 10 mg Collagenase (Santyl -) 1 applic TP DAILY [facility] Last Admin: 08/07/17 12:33 Dose: Not Given Docusate Sodium (Colace -) 300 mg PO HS [facility] Last Admin: 08/07/17 21:49 Dose: 300 mg Hydrochlorothiazide (Hctz -) 12.5 mg PO DAILY [facility] Last Admin: 08/07/17 10:24 Dose: 12.5 mg Hydromorphone HCl (Dilaudid Injection -) 1 mg IVPB Q6H PRN PRN Reason: PAIN Last Admin: 08/07/17 22:23 Dose: 1 mg Lactated Ringer's (Lactated Ringers Solution) 1,000 mls @ 75 mls/hr IV ASDIR [facility] Last Admin: 08/07/17 18:33 Dose: Not Given Ampicillin Sodium/Sulbactam (Sodium 3 gm/ Sodium Chloride) 100 mls @ 200 mls/ hr IVPB Q8H-IV [facility] Last Admin: 08/08/17 01:49 Dose: 200 mls/hr Insulin Aspart (Novolog Vial Sliding Scale -) 1 vial SQ ACHS [facility] PRN Reason: Protocol Last Admin: 08/08/17 06:38 Dose: Not Given Insulin Detemir (Levemir Vial) 20 units SQ BID [facility] Last Admin: 08/07/17 21:57 Dose: 20 units Losartan Potassium (Cozaar -) 50 mg PO DAILY [facility] Last Admin: 08/07/17 10:24 Dose: 50 mg Oxycodone HCl (Roxicodone -) 5 mg PO Q6H PRN PRN Reason: PAIN - Objective Vital Signs: Vital Signs Temperature 98.9 F 08/08/17 06:00 Pulse Rate 69 08/08/17 06:00 Respiratory Rate 18 08/08/17 06:00 Blood Pressure 145/72 08/08/17 06:00 O2 Sat by Pulse Oximetry (%) 96 08/07/17 22:00 Cardiovascular: Yes: Regular Rate and Rhythm Respiratory: Yes: Regular, CTA Bilaterally Gastrointestinal: Yes: Normal Bowel Sounds, Soft Wound/Incision: Yes: Dressing Dry and Intact Labs: CBC, BMP 08/07/17 06:15 08/07/17 06:15 Problem List - Problems (1) Diabetic foot infection Assessment/Plan: S/P BIOPSY IV ABX ID AND SURGERY ON BOARD Code(s): E11.69 - TYPE 2 DIABETES MELLITUS WITH OTHER SPECIFIED COMPLICATION L08.9 - LOCAL INFECTION OF THE SKIN AND SUBCUTANEOUS TISSUE, UNSP (2) Osteomyelitis Assessment/Plan: AWAIT BIOPSY RESULTS Code(s): M86.9 - OSTEOMYELITIS, UNSPECIFIED Qualifiers: Osteomyelitis type: unspecified type Osteomyelitis location: foot Laterality: right Qualified Code(s): M86.9 - Osteomyelitis, unspecified (3) Diabetes mellitus, insulin dependent (IDDM), uncontrolled Assessment/Plan: ON INSULIN MONITOR Code(s): E10.65 - TYPE 1 DIABETES MELLITUS WITH HYPERGLYCEMIA Qualifiers: Diabetes mellitus complication detail: with foot ulcer
[2017-08-08] MEDS: HYDROCHLOROTHIAZIDE 12.5 MG CAPSULE (FP) PO SCH (10:03)
[2017-08-08] MEDS: LOSARTAN POTASSIUM 50 MG TABLET (FP) PO SCH (10:03)
[2017-08-08] MEDS: amLODIPine BESYLATE 10 MG TABLET (FP) PO SCH (10:03)
[2017-08-08] MEDS: INSULIN DETEMIR 100 UNITS/ML MDV SQ SCH ×2 (10:04→22:46)
[2017-08-08] MEDS ORDERED: INSULIN DETEMIR 100 UNITS/ML MDV SQ ONE (10:36)
--- NOTE | 2017-08-08 12:09 | PN ---
Progress Note (short form) - Note Progress Note: RENAL Pt is well known to me awake and alert comfortable Last Vital Signs Temp Pulse Resp BP Pulse Ox 98.0 F 84 18 145/94 96 08/08/17 09:44 08/08/17 09:44 08/08/17 09:44 08/08/17 09:44 08/07/17 22:00 lungs clear cvs s1s2 rr abd soft ext +edema of right lower extremity neuro a+ox3 CBC, BMP 08/07/17 06:15 08/07/17 06:15 Current Medications Generic Name Dose Route Start Last Admin Trade Name Freq PRN Reason Stop Dose Admin Acetaminophen 650 mg 08/06/17 17:30 Tylenol - PO Q6H PRN FEVER OR PAIN Amlodipine Besylate 10 mg 08/07/17 10:00 08/08/17 10:03 Norvasc - PO 10 mg DAILY [facility] Administration Atorvastatin Calcium 10 mg 08/06/17 22:00 08/07/17 21:49 Lipitor - PO 10 mg HS [facility] Administration Collagenase 1 applic 08/07/17 10:00 08/07/17 12:33 Santyl - TP Not Given DAILY [facility] Docusate Sodium 300 mg 08/06/17 22:00 08/07/17 21:49 Colace - PO 300 mg HS [facility] Administration Heparin Sodium (Porcine) 5,000 unit 08/08/17 11:00 Heparin - SQ BID [facility] Hydrochlorothiazide 12.5 mg 08/07/17 10:00 08/08/17 10:03 Hctz - PO 12.5 mg DAILY [facility] Administration Hydromorphone HCl 1 mg 08/06/17 17:30 08/07/17 22:23 Dilaudid Injection - IVPB 1 mg Q6H PRN Administration PAIN Ampicillin Sodium/Sulbactam 100 mls @ 200 mls/hr 08/07/17 12:00 08/08/17 10:04 Sodium 3 gm/ Sodium Chloride IVPB 200 mls/hr Q8H-IV [facility] Administration Insulin Aspart 1 vial 08/07/17 00:23 08/08/17 06:38 Novolog Vial Sliding Scale - SQ Not Given ACHS [facility] Protocol Insulin Detemir 20 units 08/07/17 10:00 08/08/17 10:04 Levemir Vial SQ 20 units BID [facility] Administration Losartan Potassium 50 mg 08/07/17 10:00 08/08/17 10:03 Cozaar - PO 50 mg DAILY [facility] Administration Oxycodone HCl 5 mg 08/06/17 17:30 Roxicodone - PO Q6H PRN PAIN IMPRESSIONImpression 1. CKD 2. hx Inguinal lymphadenopathy 3. DEYSI improved 4. DM 5. HTN 6. Diabetic foot ulcer Plan -antibiotics per ID -avoid nephrotoxins - monitor renal function - needs outpatient follow up but has had issues with his insurance [facility]
[2017-08-08] MEDS: HEPARIN NA (PORCINE) 5,000 UNITS/ML 1ML VIAL SQ SCH ×2 (12:17→22:45)
[2017-08-08] MEDS ORDERED: PT OWN MED DRAWER 7, Y5N ONE ×2 (12:41→19:47)
[2017-08-08] MEDS: COLLAGENASE CLOSTRIDIUM HIST. 30 GRAMS TUBE TP SCH (17:37)
[2017-08-08] MEDS ORDERED: INSULIN (NOVOLOG) ASPART 100 UNITS/ML 10ML VIAL ONE (19:46)
[2017-08-08] MEDS: DOCUSATE SODIUM 100 MG CAPSULE (FP) PO SCH (22:44)
[2017-08-08] MEDS: ATORVASTATIN CA 10 MG TABLET (FP) PO SCH (22:48)
[2017-08-08] MEDS: HYDROmorphone HCL CARPU-JECT 1 MG/1 ML DISP.SYRIN IVPB PRN (22:52)
[2017-08-09] MEDS: AMPICILLIN NA/SULBACTAM NA 3 GM in SODIUM CHLORIDE 100 ML IVPB SCH ×3 (01:54→17:13)
[2017-08-09] MEDS: INSULIN SLIDING SCALE (NOVOLOG) 1 VIAL SQ SCH ×4 (06:46→22:40)
[2017-08-09] MEDS: HEPARIN NA (PORCINE) 5,000 UNITS/ML 1ML VIAL SQ SCH ×2 (10:06→22:22)
[2017-08-09] MEDS: HYDROCHLOROTHIAZIDE 12.5 MG CAPSULE (FP) PO SCH (10:06)
[2017-08-09] MEDS: amLODIPine BESYLATE 10 MG TABLET (FP) PO SCH (10:06)
[2017-08-09] MEDS: LOSARTAN POTASSIUM 50 MG TABLET (FP) PO SCH (10:06)
[2017-08-09] MEDS: INSULIN DETEMIR 100 UNITS/ML MDV SQ SCH (10:07)
[2017-08-09] MEDS ORDERED: INSULIN DETEMIR 100 UNITS/ML MDV SQ ONE (10:35)
[2017-08-09] MEDS ORDERED: PT OWN MED DRAWER 7, Y5N ONE ×2 (10:36→16:18)
[2017-08-09] MEDS ORDERED: oxyCODONE HCL 5 MG TABLET PO PRN (11:01)
--- NOTE | 2017-08-09 13:47 | PN ---
Progress Note, Physician History of Present Illness: NO COMPLAINTS - Current Medication List Current Medications: Active Medications Acetaminophen (Tylenol -) 650 mg PO Q6H PRN PRN Reason: FEVER OR PAIN Amlodipine Besylate (Norvasc -) 10 mg PO DAILY [facility] Last Admin: 08/09/17 10:06 Dose: 10 mg Atorvastatin Calcium (Lipitor -) 10 mg PO HS [facility] Last Admin: 08/08/17 22:48 Dose: 10 mg Collagenase (Santyl -) 1 applic TP DAILY [facility] Last Admin: 08/08/17 17:37 Dose: 1 applic Docusate Sodium (Colace -) 300 mg PO HS [facility] Last Admin: 08/08/17 22:44 Dose: 300 mg Heparin Sodium (Porcine) (Heparin -) 5,000 unit SQ BID [facility] Last Admin: 08/09/17 10:06 Dose: 5,000 unit Hydrochlorothiazide (Hctz -) 12.5 mg PO DAILY [facility] Last Admin: 08/09/17 10:06 Dose: 12.5 mg Hydromorphone HCl (Dilaudid Injection -) 1 mg IVPB Q6H PRN PRN Reason: PAIN Last Admin: 08/08/17 22:52 Dose: 1 mg Ampicillin Sodium/Sulbactam (Sodium 3 gm/ Sodium Chloride) 100 mls @ 200 mls/ hr IVPB Q8H-IV [facility] Last Admin: 08/09/17 10:06 Dose: 200 mls/hr Insulin Aspart (Novolog Vial Sliding Scale -) 1 vial SQ ACHS [facility] PRN Reason: Protocol Last Admin: 08/09/17 11:59 Dose: 7 units Insulin Detemir (Levemir Vial) 20 units SQ BID [facility] Last Admin: 08/09/17 10:07 Dose: 20 units Losartan Potassium (Cozaar -) 50 mg PO DAILY [facility] Last Admin: 08/09/17 10:06 Dose: 50 mg Oxycodone HCl (Roxicodone -) 5 mg PO Q6H PRN PRN Reason: PAIN - Objective Vital Signs: Vital Signs Temperature 97.9 F 08/09/17 09:30 Pulse Rate 77 08/09/17 09:30 Respiratory Rate 18 08/09/17 09:30 Blood Pressure 153/93 08/09/17 09:30 O2 Sat by Pulse Oximetry (%) 95 08/09/17 10:00 Cardiovascular: Yes: Regular Rate and Rhythm Respiratory: Yes: Regular, CTA Bilaterally Gastrointestinal: Yes: Normal Bowel Sounds, Soft Edema: No Wound/Incision: Yes: Dressing Dry and Intact Labs: CBC, BMP 08/07/17 06:15 08/07/17 06:15 Problem List - Problems (1) Diabetic foot infection Assessment/Plan: S/P BIOPSY IV ABX ID AND SURGERY ON BOARD Microbiology 08/06/17 16:38 Gram Stain - Final Bone Tissue Culture - Preliminary Gram Negative Satinder Corynebacterium Species Alpha Hemolytic Streptococcus Anaerobic Culture - Final NO ANAEROBES WERE ISOLATED Code(s): E11.69 - TYPE 2 DIABETES MELLITUS WITH OTHER SPECIFIED COMPLICATION L08.9 - LOCAL INFECTION OF THE SKIN AND SUBCUTANEOUS TISSUE, UNSP (2) Osteomyelitis Assessment/Plan: AWAIT BIOPSY RESULTS Code(s): M86.9 - OSTEOMYELITIS, UNSPECIFIED Qualifiers: Osteomyelitis type: unspecified type Osteomyelitis location: foot Laterality: right Qualified Code(s): M86.9 - Osteomyelitis, unspecified (3) Diabetes mellitus, insulin dependent (IDDM), uncontrolled Assessment/Plan: ON INSULIN MONITOR Code(s): E10.65 - TYPE 1 DIABETES MELLITUS WITH HYPERGLYCEMIA Qualifiers: Diabetes mellitus complication detail: with foot ulcer (4) Hypertension Assessment/Plan: increase cozaar 100 Code(s): I10 - ESSENTIAL (PRIMARY) HYPERTENSION Qualifiers: Hypertension type: essential hypertension Qualified Code(s): I10 - Essential (primary) hypertension
[2017-08-09] MEDS ORDERED: LOSARTAN POTASSIUM 50 MG TABLET (FP) PO ONE ×2 (13:50→16:00)
[2017-08-09] MEDS: HYDROmorphone HCL CARPU-JECT 1 MG/1 ML DISP.SYRIN IVPB PRN ×2 (13:55→22:32)
[2017-08-09] MEDS: COLLAGENASE CLOSTRIDIUM HIST. 30 GRAMS TUBE TP SCH (13:56)
--- NOTE | 2017-08-09 18:14 | PN ---
Progress Note, Physician Chief Complaint: has difficulty with foot pain and swelling right heel,sp bone bx History of Present Illness: rt foot non heeling ulcers sp wound culture and bone bx awaiting cultures still with very labile sugars despite insulin pump therapy - Current Medication List Current Medications: Active Medications Acetaminophen (Tylenol -) 650 mg PO Q6H PRN PRN Reason: FEVER OR PAIN Amlodipine Besylate (Norvasc -) 10 mg PO DAILY [facility] Last Admin: 08/09/17 10:06 Dose: 10 mg Atorvastatin Calcium (Lipitor -) 10 mg PO HS [facility] Last Admin: 08/08/17 22:48 Dose: 10 mg Collagenase (Santyl -) 1 applic TP DAILY [facility] Last Admin: 08/09/17 13:56 Dose: 1 applic Docusate Sodium (Colace -) 300 mg PO HS [facility] Last Admin: 08/08/17 22:44 Dose: 300 mg Heparin Sodium (Porcine) (Heparin -) 5,000 unit SQ BID [facility] Last Admin: 08/09/17 10:06 Dose: 5,000 unit Hydrochlorothiazide (Hctz -) 12.5 mg PO DAILY [facility] Last Admin: 08/09/17 10:06 Dose: 12.5 mg Hydromorphone HCl (Dilaudid Injection -) 1 mg IVPB Q6H PRN PRN Reason: PAIN Last Admin: 08/09/17 13:55 Dose: 1 mg Ampicillin Sodium/Sulbactam (Sodium 3 gm/ Sodium Chloride) 100 mls @ 200 mls/ hr IVPB Q8H-IV [facility] Last Admin: 08/09/17 17:13 Dose: 200 mls/hr Insulin Aspart (Novolog Vial Sliding Scale -) 1 vial SQ ACHS [facility] PRN Reason: Protocol Insulin Detemir (Levemir Vial) 15 units SQ AM [facility] Losartan Potassium (Cozaar -) 100 mg PO DAILY [facility] Oxycodone HCl (Roxicodone -) 5 mg PO Q6H PRN PRN Reason: PAIN - Objective Vital Signs: Vital Signs Temperature 98.5 F 08/09/17 13:15 Pulse Rate 89 08/09/17 13:30 Respiratory Rate 18 08/09/17 13:15 Blood Pressure 150/99 08/09/17 15:00 O2 Sat by Pulse Oximetry (%) 95 08/09/17 10:00 Constitutional: Yes: Well Nourished Eyes: Yes: EOM Intact HENT: Yes: Normocephalic Neck: Yes: Trachea Midline Cardiovascular: Yes: Regular Rate and Rhythm Respiratory: Yes: Regular. No: WNL, CTA Bilaterally, Accessory Muscle Use, Bradypnea, [place], Cough, Diminished, Dullness, Hyperresonant, Intubated , [place], Mechanically Ventilated, On BiPap, On Nasal O2, On Venti-Mask, Orthopnea, Poor Air Entry, Rales, Rhonchi, SOB, SOB on Exertion, Stridor, Tachypnea, Wheezes, Other Gastrointestinal: Yes: WNL. No: Normal Bowel Sounds, Soft, Abdomen, Obese, Ascites, Distention, Hematemesis, Hemorrhoids, Hepatomegaly, Hernia, Hyperactive Bowel Sounds, Hypoactive Bowel Sounds, Melena, Palpable Mass, Pulsatile Mass, Rectal Bleeding, Splenomegaly, Tenderness, Tenderness, Epigastrium, Tenderness, Rebound, Vomiting, Other ...Rectal Exam: Yes: Deferred Genitourinary: Yes: WNL Breast(s): Yes: WNL Musculoskeletal: Yes: Joint Swelling, Muscle Pain Extremities: Yes: Erythema Edema: No Peripheral Pulses WNL: Yes Wound/Incision: Yes: Dressing Removed, Draining Neurological: Yes: Alert, Oriented ...Motor Strength: WNL Labs: CBC, BMP 08/07/17 06:15 08/07/17 06:15 Problem List - Problems (1) Diabetic foot infection Code(s): E11.69 - TYPE 2 DIABETES MELLITUS WITH OTHER SPECIFIED COMPLICATION L08.9 - LOCAL INFECTION OF THE SKIN AND SUBCUTANEOUS TISSUE, UNSP (2) Diabetic foot ulcer Code(s): E11.621 - TYPE 2 DIABETES MELLITUS WITH FOOT ULCER L97.509 - NON-PRESSURE CHRONIC ULCER OTH PRT UNSP FOOT W UNSP SEVERITY Qualifiers: Diabetic foot ulcer location: heel Diabetes mellitus type: type 2 Laterality: right Non-pressure ulcer stage: limited to breakdown of skin Qualified Code(s): E11.621 - Type 2 diabetes mellitus with foot ulcer; L97.509 - Non-pressure chronic ulcer of other part of unspecified foot with unspecified severity (3) Osteomyelitis Code(s): M86.9 - OSTEOMYELITIS, UNSPECIFIED Qualifiers: Osteomyelitis type: unspecified type Osteomyelitis location: foot Laterality: right Qualified Code(s): M86.9 - Osteomyelitis, unspecified (4) Diabetes mellitus, insulin dependent (IDDM), uncontrolled Code(s): E10.65 - TYPE 1 DIABETES MELLITUS WITH HYPERGLYCEMIA Qualifiers: Diabetes mellitus complication detail: with foot ulcer (5) Diabetic infection of right foot Code(s): E11.69 - TYPE 2 DIABETES MELLITUS WITH OTHER SPECIFIED COMPLICATION L08.9 - LOCAL INFECTION OF THE SKIN AND SUBCUTANEOUS TISSUE, UNSP Assessment/Plan Current Active Problems uncontrolled dm insulin requiring diabetes,cri,htn,ashd Laboratory Results - last 24 hr 08/08/17 08/09/17 08/09/17 22:43 06:45 11:44 POC Glucometer 303 87 223 08/09/17 16:25 POC Glucometer 253 Cellulitis of foot (Acute) Diabetic foot infection (Acute) Diabetic foot ulcer (Acute) Osteomyelitis (Acute) plan: iv antibiotic insulin pump using basal bolus with carb counting levemir 15 am if sugar over 150mg /dl
[2017-08-09] MEDS ORDERED: INSULIN DETEMIR 100 UNITS/ML MDV SQ SCH (22:00)
[2017-08-09] MEDS: DOCUSATE SODIUM 100 MG CAPSULE (FP) PO SCH (22:22)
[2017-08-09] MEDS: ATORVASTATIN CA 10 MG TABLET (FP) PO SCH (22:22)
[2017-08-10] MEDS: AMPICILLIN NA/SULBACTAM NA 3 GM in SODIUM CHLORIDE 100 ML IVPB SCH ×2 (02:11→18:58)
[2017-08-10] MEDS: INSULIN SLIDING SCALE (NOVOLOG) 1 VIAL SQ SCH ×4 (06:46→22:20)
[2017-08-10] MEDS: INSULIN DETEMIR 100 UNITS/ML MDV SQ SCH (06:46)
[2017-08-10] MEDS ORDERED: PT OWN MED DRAWER 7, Y5N ONE ×2 (10:07→11:48)
[2017-08-10] MEDS ORDERED: cefTRIAXone 2 GM/100 ML BAG (PRE-DOCKED) IVPB SCH (10:30)
--- NOTE | 2017-08-10 10:37 | PN ---
Progress Note (short form) - Note Progress Note: feels well no complaints Vital Signs Period Temp Pulse Resp BP Sys/Banuelos Pulse Ox Last 24 Hr 97.4 F-98.8 F 74-97 16-20 117-160/68-115 97 cor-rrr llungs clear abd soft,nt ext heel ulcer is clean, some mild swelling surrounding the ulcer, no purulence Microbiology 08/06/17 16:38 Bone Gram Stain - Final 08/06/17 16:38 Bone Tissue Culture - Preliminary Klebsiella Oxytoca Corynebacterium Species Alpha Hemolytic Streptococcus 08/06/17 16:38 Bone Anaerobic Culture - Final NO ANAEROBES WERE ISOLATED 08/04/17 00:43 Foot - Right Heel Gram Stain - Final 08/04/17 00:43 Foot - Right Heel Wound Culture - Final Acinetobacter Baumannii/Haemol Stenotrophomon.(X.)Maltophilia Strep Agalactiae Group B Enterococcus Faecalis Diphtheroid/Corynebacterium Staphylococcus Coagulase Neg Streptococcus Viridans 08/04/17 00:43 Foot - Right Plantar Gram Stain - Final 08/04/17 00:43 Foot - Right Plantar Wound Culture - Final Acinetobacter Baumannii/Haemol Stenotrophomon.(X.)Maltophilia Strep Agalactiae Group B Enterococcus Faecalis Diphtheroid/Corynebacterium Staphylococcus Coagulase Neg a/p osteomyelitis with nonhealing ulcer with sinus tract operative cultures (off antiibotics)with Klebsiella!suspect alpha strep and corynebacterium are skin contamminants will switch to rocephin with plans for 6 weeks of iv treatment via picc with plans for f/u with ID (our Office) and wound care (Dr Thompson) labs ordered
[2017-08-10] MEDS: LOSARTAN POTASSIUM 50 MG TABLET (FP) PO SCH (10:42)
[2017-08-10] MEDS: HYDROCHLOROTHIAZIDE 12.5 MG CAPSULE (FP) PO SCH (10:43)
[2017-08-10] MEDS: HEPARIN NA (PORCINE) 5,000 UNITS/ML 1ML VIAL SQ SCH ×2 (10:43→21:51)
[2017-08-10] MEDS: amLODIPine BESYLATE 10 MG TABLET (FP) PO SCH (10:43)
[2017-08-10] MEDS: COLLAGENASE CLOSTRIDIUM HIST. 30 GRAMS TUBE TP SCH (10:43)
[2017-08-10 11:16] LABS: MCH 27.6 pg (25.7-33.7); MCHC 33.9 g/dl (32.0-35.9); MEAN CELL VOLUME 81.5 fl (80-96); MEAN PLT VOLUME 7.4 fl (7.5-11.1); PLATELET COUNT 275 K/MM3 (134-434); RDW 13.5 % (11.9-15.9); WHITE BLOOD COUNT 6.4 K/mm3 (4.0-10.0)
[2017-08-10 11:36] LABS: ANION GAP 7 (8-16); C-REACTIVE PROTEIN 0.8 MG/DL (0.00-0.3); CALCIUM 8.9 mg/dL (8.5-10.1); CO2 28 mmol/L (21-32); CREATININE 1.7 mg/dL (0.7-1.3); GLUCOSE,RANDOM 193 mg/dL (74-106)
[2017-08-10] MEDS ORDERED: DEXTROSE 5%-WATER 100 ML IVPB ONE (11:48)
--- NOTE | 2017-08-10 11:51 | PATH ---
Surgical Pathology Report Patient Name: RYDER HERNANDES Med. Rec. #: [id number] /Age/Gender: 1970 (Age: 47) / M Account: [id number] Location: [address] [place] [address]/[facility] Taken: 08/06/2017 Received: 08/07/2017 Reported: 08/10/2017 Physicians: Pierre Thompson Specimen(s) Received RIGHT FOOT HEEL BONE BIOPSY Clinical History Right foot osteomyelitis Final Diagnosis BONE, RIGHT FOOT/HEEL, BIOPSY: BONE WITH CHRONIC OSTEOMYELITIS. Electronically Signed Jay Martin M.D. Gross Description Received in formalin labeled "right foot/heel bone biopsy" is a 1.5 x 1.3 x 0.3 cm aggregate of haines bone fragments. The specimen is submitted in toto in one cassette, following decalcification. 08/07/201708/07/2017
[2017-08-10] MEDS: CEFTRIAXONE 2 GM in DEXTROSE 5%-WATER 100 ML IVPB SCH (11:57)
[2017-08-10 12:29] LABS: ERYTHROCYTE SEDIMENTATION RATE 74 mm/hr (0-10)
[2017-08-10] MEDS ORDERED: diphenhydrAMINE HCL 25 MG CAPSULE (FP) PO ONE (14:45)
[2017-08-10] MEDS: HYDROmorphone HCL CARPU-JECT 1 MG/1 ML DISP.SYRIN IVPB PRN ×2 (15:22→21:59)
--- NOTE | 2017-08-10 17:53 | PN ---
Progress Note, Physician Chief Complaint: AWAKE ALERT STILL HAS ITCHING TO ROCEPHIN - Current Medication List Current Medications: Active Medications Acetaminophen (Tylenol -) 650 mg PO Q6H PRN PRN Reason: FEVER OR PAIN Amlodipine Besylate (Norvasc -) 10 mg PO DAILY [facility] Last Admin: 08/10/17 10:43 Dose: 10 mg Atorvastatin Calcium (Lipitor -) 10 mg PO HS [facility] Last Admin: 08/09/17 22:22 Dose: 10 mg Collagenase (Santyl -) 1 applic TP DAILY [facility] Last Admin: 08/10/17 10:43 Dose: 1 applic Docusate Sodium (Colace -) 300 mg PO HS [facility] Last Admin: 08/09/17 22:22 Dose: 300 mg Heparin Sodium (Porcine) (Heparin -) 5,000 unit SQ BID [facility] Last Admin: 08/10/17 10:43 Dose: 5,000 unit Hydrochlorothiazide (Hctz -) 12.5 mg PO DAILY [facility] Last Admin: 08/10/17 10:43 Dose: 12.5 mg Hydromorphone HCl (Dilaudid Injection -) 1 mg IVPB Q6H PRN PRN Reason: PAIN Last Admin: 08/10/17 15:22 Dose: 1 mg Ceftriaxone Sodium 2 gm/ (Dextrose) 100 mls @ 200 mls/hr IVPB DAILY [facility] Last Admin: 08/10/17 11:57 Dose: 200 mls/hr Insulin Aspart (Novolog Vial Sliding Scale -) 1 vial SQ ACHS [facility] PRN Reason: Protocol Last Admin: 08/10/17 17:36 Dose: Not Given Insulin Detemir (Levemir Vial) 15 units SQ AM [facility] Last Admin: 08/10/17 06:46 Dose: Not Given Losartan Potassium (Cozaar -) 100 mg PO DAILY [facility] Last Admin: 08/10/17 10:42 Dose: 100 mg Oxycodone HCl (Roxicodone -) 5 mg PO Q6H PRN PRN Reason: PAIN - Objective Vital Signs: Vital Signs Temperature 98.3 F 08/10/17 15:05 Pulse Rate 89 08/10/17 15:05 Respiratory Rate 20 08/10/17 15:05 Blood Pressure 154/100 08/10/17 15:05 O2 Sat by Pulse Oximetry (%) 97 08/09/17 21:00 Constitutional: Yes: Mild Distress Eyes: Yes: WNL HENT: Yes: WNL Neck: Yes: WNL Cardiovascular: Yes: WNL Respiratory: Yes: WNL Gastrointestinal: Yes: WNL Genitourinary: Yes: WNL Musculoskeletal: Yes: WNL Extremities: Yes: Deformity, Erythema Edema: Yes Edema: LLE: Trace, RLE: Trace Peripheral Pulses WNL: Yes Integumentary: Yes: Pressure Ulcer, Rash, Venous Stasis Changes Wound/Incision: Yes: Dressing Dry and Intact Neurological: Yes: Pre-Existing Deficit ...Motor Strength: RLE Labs: CBC, BMP 08/10/17 10:59 08/10/17 10:59 Problem List - Problems (1) Cellulitis of foot Code(s): L03.119 - CELLULITIS OF UNSPECIFIED PART OF LIMB (2) Diabetic foot ulcer Code(s): E11.621 - TYPE 2 DIABETES MELLITUS WITH FOOT ULCER L97.509 - NON-PRESSURE CHRONIC ULCER OTH PRT UNSP FOOT W UNSP SEVERITY Qualifiers: Diabetic foot ulcer location: heel Diabetes mellitus type: type 2 Laterality: right Non-pressure ulcer stage: limited to breakdown of skin Qualified Code(s): E11.621 - Type 2 diabetes mellitus with foot ulcer; L97.509 - Non-pressure chronic ulcer of other part of unspecified foot with unspecified severity (3) Osteomyelitis Code(s): M86.9 - OSTEOMYELITIS, UNSPECIFIED Qualifiers: Osteomyelitis type: unspecified type Osteomyelitis location: foot Laterality: right Qualified Code(s): M86.9 - Osteomyelitis, unspecified (4) Diabetes mellitus, insulin dependent (IDDM), uncontrolled Code(s): E10.65 - TYPE 1 DIABETES MELLITUS WITH HYPERGLYCEMIA Qualifiers: Diabetes mellitus complication detail: with foot ulcer (5) Diabetic infection of right foot Code(s): E11.69 - TYPE 2 DIABETES MELLITUS WITH OTHER SPECIFIED COMPLICATION L08.9 - LOCAL INFECTION OF THE SKIN AND SUBCUTANEOUS TISSUE, UNSP (6) Foot ulcer Code(s): L97.509 - NON-PRESSURE CHRONIC ULCER OTH PRT UNSP FOOT W UNSP SEVERITY Qualifiers: Laterality: right (7) Hypertension Code(s): I10 - ESSENTIAL (PRIMARY) HYPERTENSION Qualifiers: Hypertension type: essential hypertension Qualified Code(s): I10 - Essential (primary) hypertension (8) Renal insufficiency Code(s): N28.9 - DISORDER OF KIDNEY AND URETER, UNSPECIFIED (9) Sepsis Code(s): A41.9 - SEPSIS, UNSPECIFIED ORGANISM Qualifiers: Sepsis type: sepsis due to unspecified organism Qualified Code(s): A41.9 - Sepsis, unspecified organism Assessment/Plan ALLERGY TO ROCEPHIN? WILL DISCUSS WITH ID SAMANTHA PANNING TOMORROW PICC LINE IN AM
--- NOTE | 2017-08-10 18:05 | PN ---
Progress Note (short form) - Note Progress Note: Vascular surgery Pt seen and examined. Feeling better Rocephin started for findings on bone biopsy For picc line in am Will follow up in [facility] Will set up HBO as well for pt Pierre Thompson DO
[2017-08-10] MEDS: DOCUSATE SODIUM 100 MG CAPSULE (FP) PO SCH (21:50)
[2017-08-10] MEDS: ATORVASTATIN CA 10 MG TABLET (FP) PO SCH (21:51)
[2017-08-11] MEDS: INSULIN DETEMIR 100 UNITS/ML MDV SQ SCH (06:49)
[2017-08-11] MEDS: INSULIN SLIDING SCALE (NOVOLOG) 1 VIAL SQ SCH ×3 (06:49→17:00)
[2017-08-11 07:07] LABS: MCH 28.1 pg (25.7-33.7); MCHC 34.6 g/dl (32.0-35.9); MEAN CELL VOLUME 81.2 fl (80-96); MEAN PLT VOLUME 7.3 fl (7.5-11.1); PLATELET COUNT 278 K/MM3 (134-434); RDW 13.3 % (11.9-15.9); WHITE BLOOD COUNT 6.9 K/mm3 (4.0-10.0)
[2017-08-11 07:26] LABS: INR 1.04 (0.82-1.09); PROTHROMBIN TIME (PATIENT) 11.4 SEC (9.98-11.88)
[2017-08-11 08:00] LABS: ANION GAP 7 (8-16); CALCIUM 8.8 mg/dL (8.5-10.1); CO2 27 mmol/L (21-32); CREATININE 1.8 mg/dL (0.7-1.3); GLUCOSE,RANDOM 140 mg/dL (74-106)
[2017-08-11] MEDS ORDERED: diphenhydrAMINE HCL 25 MG CAPSULE (FP) PO PRN (09:02)
--- NOTE | 2017-08-11 09:05 | PN ---
Progress Note (short form) - Note Progress Note: d/w patient d/w nurse twice yesterday and again this am had episode of itching yesterday-no rash, no sob, no swelling no rash he was on unasyn prior to this and has been on Rocephin in the past as an outpt I am not sure he has a true rocephin allergy I suggest we retry it here in the hospital as it would be the most convenient outpt choice for him for his calcaneal osteomyelitis d/w patient- he is agreeable
[2017-08-11] MEDS ORDERED: PT OWN MED DRAWER 7, Y5N ONE ×2 (10:12→16:36)
[2017-08-11] MEDS ORDERED: DEXTROSE 5%-WATER 100 ML IVPB ONE (10:13)
[2017-08-11] MEDS: CEFTRIAXONE 2 GM in DEXTROSE 5%-WATER 100 ML IVPB SCH (10:36)
[2017-08-11] MEDS: COLLAGENASE CLOSTRIDIUM HIST. 30 GRAMS TUBE TP SCH (10:36)
[2017-08-11] MEDS: HYDROCHLOROTHIAZIDE 12.5 MG CAPSULE (FP) PO SCH (10:37)
[2017-08-11] MEDS: amLODIPine BESYLATE 10 MG TABLET (FP) PO SCH (10:37)
[2017-08-11] MEDS: HEPARIN NA (PORCINE) 5,000 UNITS/ML 1ML VIAL SQ SCH (10:37)
[2017-08-11] MEDS: LOSARTAN POTASSIUM 50 MG TABLET (FP) PO SCH (10:37)
[2017-08-11 12:47] VITALS: TEMP 98.6
--- NOTE | 2017-08-11 13:31 | PN ---
Progress Note, Physician History of Present Illness: Pt seen and examined at bedside. He is awake and appears comfortable. He denies dysuria. - Current Medication List Current Medications: Active Medications Acetaminophen (Tylenol -) 650 mg PO Q6H PRN PRN Reason: FEVER OR PAIN Amlodipine Besylate (Norvasc -) 10 mg PO DAILY [facility] Last Admin: 08/11/17 10:37 Dose: 10 mg Atorvastatin Calcium (Lipitor -) 10 mg PO HS [facility] Last Admin: 08/10/17 21:51 Dose: 10 mg Collagenase (Santyl -) 1 applic TP DAILY [facility] Last Admin: 08/11/17 10:36 Dose: 1 applic Diphenhydramine HCl (Benadryl -) 25 mg PO Q6H PRN PRN Reason: FOR ITCHING Last Admin: 08/11/17 11:26 Dose: 25 mg Docusate Sodium (Colace -) 300 mg PO HS [facility] Last Admin: 08/10/17 21:50 Dose: 300 mg Heparin Sodium (Porcine) (Heparin -) 5,000 unit SQ BID [facility] Last Admin: 08/11/17 10:37 Dose: Not Given Hydrochlorothiazide (Hctz -) 12.5 mg PO DAILY [facility] Last Admin: 08/11/17 10:37 Dose: 12.5 mg Hydromorphone HCl (Dilaudid Injection -) 1 mg IVPB Q6H PRN PRN Reason: PAIN Last Admin: 08/10/17 21:59 Dose: 1 mg Ceftriaxone Sodium 2 gm/ (Dextrose) 100 mls @ 200 mls/hr IVPB DAILY [facility] Last Admin: 08/11/17 10:36 Dose: 200 mls/hr Insulin Aspart (Novolog Vial Sliding Scale -) 1 vial SQ ACHS [facility] PRN Reason: Protocol Last Admin: 08/11/17 11:27 Dose: Not Given Insulin Detemir (Levemir Vial) 15 units SQ AM [facility] Last Admin: 08/11/17 06:49 Dose: Not Given Losartan Potassium (Cozaar -) 100 mg PO DAILY [facility] Last Admin: 08/11/17 10:37 Dose: 100 mg Oxycodone HCl (Roxicodone -) 5 mg PO Q6H PRN PRN Reason: PAIN - Objective Vital Signs: Vital Signs Temperature 98.6 F 08/11/17 10:00 Pulse Rate 82 08/11/17 10:00 Respiratory Rate 18 08/11/17 10:00 Blood Pressure 145/91 08/11/17 10:00 O2 Sat by Pulse Oximetry (%) 98 08/11/17 09:00 Constitutional: Yes: Calm Eyes: Yes: Conjunctiva Clear HENT: Yes: Atraumatic Neck: Yes: Supple Cardiovascular: Yes: S1, S2 Respiratory: Yes: CTA Bilaterally Gastrointestinal: Yes: Normal Bowel Sounds, Soft Genitourinary: Yes: WNL Edema: No Wound/Incision: Yes: Dressing Dry and Intact Labs: CBC, BMP 08/11/17 06:00 08/11/17 06:30 INR, PTT INR 1.04 (0.82-1.09) 08/11/17 06:30 Problem List - Problems (1) Cellulitis of foot Code(s): L03.119 - CELLULITIS OF UNSPECIFIED PART OF LIMB (2) Diabetic foot infection Code(s): E11.69 - TYPE 2 DIABETES MELLITUS WITH OTHER SPECIFIED COMPLICATION L08.9 - LOCAL INFECTION OF THE SKIN AND SUBCUTANEOUS TISSUE, UNSP (3) Osteomyelitis Code(s): M86.9 - OSTEOMYELITIS, UNSPECIFIED Qualifiers: Osteomyelitis type: unspecified type Osteomyelitis location: foot Laterality: right Qualified Code(s): M86.9 - Osteomyelitis, unspecified (4) Renal insufficiency Code(s): N28.9 - DISORDER OF KIDNEY AND URETER, UNSPECIFIED Assessment/Plan Current Medications Generic Name Dose Route Start Last Admin Trade Name Freq PRN Reason Stop Dose Admin Acetaminophen 650 mg 08/06/17 17:30 Tylenol - PO Q6H PRN FEVER OR PAIN Amlodipine Besylate 10 mg 08/07/17 10:00 08/11/17 10:37 Norvasc - PO 10 mg DAILY [facility] Administration Atorvastatin Calcium 10 mg 08/06/17 22:00 08/10/17 21:51 Lipitor - PO 10 mg HS [facility] Administration Collagenase 1 applic 08/07/17 10:00 08/11/17 10:36 Santyl - TP 1 applic DAILY [facility] Administration Diphenhydramine HCl 25 mg 08/11/17 09:02 08/11/17 11:26 Benadryl - PO 25 mg Q6H PRN Administration FOR ITCHING Docusate Sodium 300 mg 08/06/17 22:00 08/10/17 21:50 Colace - PO 300 mg HS [facility] Administration Heparin Sodium (Porcine) 5,000 unit 08/08/17 11:00 08/11/17 10:37 Heparin - SQ Not Given BID [facility] Hydrochlorothiazide 12.5 mg 08/07/17 10:00 08/11/17 10:37 Hctz - PO 12.5 mg DAILY [facility] Administration Hydromorphone HCl 1 mg 08/06/17 17:30 08/10/17 21:59 Dilaudid Injection - IVPB 1 mg Q6H PRN Administration PAIN Ceftriaxone Sodium 2 gm/ 100 mls @ 200 mls/hr 08/10/17 11:00 08/11/17 10:36 Dextrose IVPB 200 mls/hr DAILY [facility] Administration Insulin Aspart 1 vial 08/09/17 17:57 08/11/17 11:27 Novolog Vial Sliding Scale - SQ Not Given ACHS [facility] Protocol Insulin Detemir 15 units 08/10/17 07:00 08/11/17 06:49 Levemir Vial SQ Not Given AM [facility] Losartan Potassium 100 mg 08/09/17 13:51 08/11/17 10:37 Cozaar - PO 100 mg DAILY [facility] Administration Oxycodone HCl 5 mg 08/09/17 11:01 Roxicodone - PO Q6H PRN PAIN Impression 1. CKD 2. hx Inguinal lymphadenopathy 3. DEYSI improved 4. DM 5. HTN 6. DFU Plan - pt will follow in office - monitor renal function while in hospital - abx per ID - cont cobakariar - will follow PRN Dr Matthews
[2017-08-11 15:41] VITALS: BP 147/87; PULSE 89
--- NOTE | 2017-08-11 16:35 | DS ---
Physical Examination Vital Signs: Vital Signs Temperature 98.6 F 08/11/17 14:39 Pulse Rate 89 08/11/17 14:39 Respiratory Rate 18 08/11/17 14:39 Blood Pressure 147/87 08/11/17 14:39 O2 Sat by Pulse Oximetry (%) 98 08/11/17 09:00 Constitutional: Yes: No Distress Eyes: Yes: WNL HENT: Yes: WNL Neck: Yes: WNL Cardiovascular: Yes: WNL Respiratory: Yes: WNL Gastrointestinal: Yes: WNL Renal/: Yes: WNL Musculoskeletal: Yes: WNL Extremities: Yes: Deformity Edema: Yes Edema: LLE: Trace, RLE: Trace Peripheral Pulses WNL: Yes Integumentary: Yes: Pressure Ulcer Wound/Incision: Yes: Dressing Dry and Intact Neurological: Yes: Pre-Existing Deficit, Other ...Motor Strength: RLE Psychiatric: Yes: WNL Labs: CBC, BMP 08/11/17 06:00 08/11/17 06:30 Discharge Summary Reason For Visit: DIABETIC FOOT INFECTION,CELLULITIS FOOT Current Active Problems Cellulitis of foot (Acute) Diabetic foot infection (Acute) Diabetic foot ulcer (Acute) Osteomyelitis (Acute) Procedures: Principal: bone biopsy right foot Hospital Course: ADMITTED BONE BIOPSY DONE TO TREAT OSTEOMYELITIS RIGHT FOOT, TUNNEL CATH INSERTED AND IV ABX HOME FOR 4 WEEKS WITH WOUND CARE AND ASSISTED SERVICE Condition: Stable - Instructions Diet, Activity, Other Instructions: DIABTEIC LOW SODIUM SEE PRIMARY DOCTOR IN 1 WEEK WOUND CARE CONSULT [address] Referrals: Kesha Livingston [Primary Care Provider] - Disposition: HOME - Home Medications Comprehensive Discharge Medication List: Ambulatory Orders Insulin Pump Cartridge [Cartridge] 1 each SCJ ASDIR 03/30/13 Folic Acid 1 mg PO HS 08/20/16 Atorvastatin Ca [Lipitor] 20 mg PO HS #30 tablet MDD 1 05/18/17 Collagenase Clostridium Hist. [Santyl -] 1 applic TP DAILY #1 tube MDD 1 Amlodipine Besylate 10 mg PO DAILY 08/04/17 Aspirin [ASA -] 81 mg PO DAILY 08/04/17 Losartan/Hydrochlorothiazide [Losartan-Hctz 100-12.5 mg Tab] 1 each PO DAILY 04/15
== END 2017-08-11 17:17 | disposition home or self-care (01) | DRG 344 ==
LOC: JER 22:10 → JERBED 08-04 09:37 → J5S 08-04 15:41
PROVIDERS: ADMIT Family Medicine; ATTEND Family Medicine
PROC: 0QBL0ZX Excision of Right Tarsal, Open Approach, Diagnostic (ICD-10-PCS; 2017-08-06)
PROC: 0JBQ0ZZ Excision of Right Foot Subcutaneous Tissue and Fascia, Open Approach (ICD-10-PCS; principal; 2017-08-06 14:30)
PROC: 05HM33Z Insertion of Infusion Device into Right Internal Jugular Vein, Percutaneous Approach (ICD-10-PCS; 2017-08-11)
PROC: B513ZZA Fluoroscopy of Right Jugular Veins, Guidance (ICD-10-PCS; 2017-08-11)
PROC: 3E043GC Introduction of Other Therapeutic Substance into Central Vein, Percutaneous Approach (ICD-10-PCS; 2017-08-11)
DX: E11.621 Type 2 diabetes mellitus with foot ulcer (principal); L97.519 Non-pressure chronic ulcer of other part of right foot with unspecified severity; M86.9 Osteomyelitis, unspecified; K21.9 Gastro-esophageal reflux disease without esophagitis; N40.0 Benign prostatic hyperplasia without lower urinary tract symptoms; I12.9 Hypertensive chronic kidney disease with stage 1 through stage 4 chronic kidney disease, or unspecified chronic kidney disease; E11.22 Type 2 diabetes mellitus with diabetic chronic kidney disease; N18.9 Chronic kidney disease, unspecified; L03.115 Cellulitis of right lower limb; E11.42 Type 2 diabetes mellitus with diabetic polyneuropathy; E11.65 Type 2 diabetes mellitus with hyperglycemia; A41.9 Sepsis, unspecified organism; Z79.4 Long term (current) use of insulin; Z87.891 Personal history of nicotine dependence
CPT/HCPCS: 36415; 36558; 73630-TC-RT; 77001-TC; 80048; 80053; 80061; 83036; 83721; 85025; 85027; 85610; 85651; 86140; 87070; 87075; 87077; 87186; 87205; 88305-TC; 88311-TC; 94760; 99285-25; C1751; J1644

== ENCOUNTER → 2017-09-10 | Day surgery (SDC) | payer OTHER | END | disposition home or self-care (01) | LOC: JRADIR 12:46 | PROVIDERS: ATTEND Internal Medicine Endocrinology, Diabetes & Metabolism | PROC: 05PY03Z Removal of Infusion Device from Upper Vein, Open Approach (ICD-10-PCS; principal; 2017-09-10) | DX: Z45.2 Encounter for adjustment and management of vascular access device (principal) | CPT/HCPCS: 36589; G0277 ==

== ENCOUNTER 2017-10-12 17:09 | Inpatient (IN) | payer OTHER ==
[2017-10-12 17:14] VITALS: BMI 33.7
--- NOTE | 2017-10-12 17:16 | PDOC ---
Rapid Medical Evaluation Chief Complaint: Chest Pain Time Seen by Provider: 10/12/17 17:12 Medical Evaluation: Allergies Allergy/AdvReac Type Severity Reaction Status Date / Time No Known Allergies Allergy Verified 10/12/17 17:10 10/12/17 17:12 I have performed a brief in-person evaluation of this patient. The Patient presents with a chief complaint of left sided chest pain since Thursday, states intermittently, states pain non radiating, no dizziness or diaphoresis seen by pmd who sent him to ed for elevated blood pressure Pertinent physical exam findings are: NAD Lungs clear bilaterally chest tender with palpation on left side I have ordered the following: EKG,labs The patient will proceed to the ED for further evaluation.
[2017-10-12 17:48] LABS: BASOPHIL 1.7 % (0-2.0); EOSINOPHIL 3.4 % (0-4.5); MCH 28.8 pg (25.7-33.7); MCHC 34.3 g/dl (32.0-35.9); MEAN PLT VOLUME 8.3 fl (7.5-11.1); NEUTROPHILS 61.2 % (42.8-82.8); PLATELET COUNT 245 K/MM3 (134-434); RDW 13.6 % (11.9-15.9); WHITE BLOOD COUNT 8.1 K/mm3 (4.0-10.0)
[2017-10-12 18:21] LABS: ALBUMIN 3.4 g/dl (3.4-5.0); ANION GAP 9 (8-16); CALCIUM 8.4 mg/dL (8.5-10.1); CO2 24 mmol/L (21-32); GLUCOSE,RANDOM 149 mg/dL (74-106)
[2017-10-12 18:27] LABS: ALK PHOS 112 U/L (45-117); BILIRUBIN,TOTAL 0.6 mg/dL (0.2-1.0); CPK 760 IU/L (39-308); CREATININE 2.3 mg/dL (0.7-1.3); SGOT/AST 29 U/L (15-37); SGPT/ALT 28 U/L (12-78); TROPONIN I 0.04 ng/ml (0.00-0.05)
--- NOTE | 2017-10-12 18:28 | PDOC ---
History of Present Illness - General Chief Complaint: Chest Pain Stated Complaint: admission/ CHEST PAIN Time Seen by Provider: 10/12/17 17:12 - History of Present Illness Initial Comments: 10/12/17 19:36 The patient is a 47 year old male with a history of HTN, DM who presents for evaluation of chest pain. The patient reports a 3 day history of left sided chest pressure worse with exertion with associated radiation into his left arm. The patient presented to his primary Dr. Dean who sent him to the ED for telemetry admission given his symptoms. The patient reports some SOB with exertion as well. He denies fevers, chills, nausea, vomiting, abdominal pain, or changes with urination or bowel movements. Past History - Past Medical History Allergies/Adverse Reactions: Allergies Allergy/AdvReac Type Severity Reaction Status Date / Time No Known Allergies Allergy Verified 10/12/17 17:10 Home Medications: Ambulatory Orders Insulin Pump Cartridge [Cartridge] 1 each SCJ ASDIR 03/30/13 Folic Acid 1 mg PO HS 08/20/16 Collagenase Clostridium Hist. [Santyl -] 1 applic TP DAILY #1 tube MDD 1 Aspirin [ASA -] 81 mg PO DAILY 08/04/17 Losartan/Hydrochlorothiazide [Losartan-Hctz 100-12.5 mg Tab] 1 each PO DAILY 04/15 Acetaminophen [Tylenol .Regular Strength -] 650 mg PO Q6H PRN #0 tablet Atorvastatin Ca [Lipitor] 10 mg PO HS #30 tablet 08/11/17 Diltiazem HCl [Cartia Xt] 120 mg PO DAILY 10/12/17 Anemia: No Asthma: No Cancer: No Cardiac Disorders: No CVA: No COPD: No CHF: No DVT: No Dementia: No Diabetes: Yes (INSULIN PUMP) GI Disorders: Yes (GERD) Disorders: Yes (BPH) HTN: Yes Hypercholesterolemia: No Liver Disease: No Seizures: No Thyroid Disease: No - Surgical History Abdominal Surgery: No Appendectomy: No Cardiac Surgery: No Cholecystectomy: No Lung Surgery: No Neurologic Surgery: Yes (LOWER BACK FOR HERNIATED DISC) Orthopedic Surgery: No - Immunization History Td Vaccination: Yes TDAP Vaccination: Yes Immunization Up to Date: Yes - Suicide/Smoking/Psychosocial Hx Smoking Status: No Smoking History: Former smoker Have you smoked in the past 12 months: No Number of Cigarettes Smoked Daily: 2 If you are a former smoker, when did you quit?: 14 yrs ago Information on smoking cessation initiated: No Hx Alcohol Use: No Drug/Substance Use Hx: No Substance Use Type: None Hx Substance Use Treatment: No Review of Systems - Review of Systems Comments:: 10/12/17 19:43 Constitutional: No fevers, chills, fatigue, malaise HEENT: No Rhinorrhea, nasal congestion, Cardiovascular: Chest pain. No syncope, palpitations, lightheadedness Respiratory: SOB. No Cough, Hemoptysis, Gastrointestinal: No Abdominal pain, Nausea, Vomiting, Constipation, Diarrhea, Melena Genitourinary: No Dysuria, Frequency, Urgency, Hesitancy, Hematuria, Flank pain Musculoskeletal: No Myalgia, arthralgia Skin: No rashes, bruising, pallor Neurologic: No Headache, Dizziness, Numbness, Weakness, or Tingling Psychiatric: No Hallucinations. No SI or HI *Physical Exam - Vital Signs Last Vital Signs Temp Pulse Resp BP Pulse Ox 97.1 F L 101 H 18 141/106 100 10/12/17 17:11 10/12/17 17:11 10/12/17 17:11 10/12/17 17:11 10/12/17 17:11 - Physical Exam Comments: 10/12/17 19:44 General Appearance: Nourished. No Apparent Distress HEENT: EOMI, KAI. No Pharyngeal Erythema, Tonsillar Exudate, Tonsillar Erythema Neck: No Cervical Lymphadenopathy Respiratory/Chest: Lungs Clear, Normal Breath Sounds. Some left sided reproducible tenderness to palpation. No Crackles, Rales, Rhonchi, Wheezing Cardiovascular: Regular Rhythm, Regular Rate. No Murmur, Gallops, Rubs Gastrointestinal/Abdominal: Normal Bowel Sounds, Soft. No Guarding, Rebound, Tenderness Musculoskeletal: No CVA Tenderness Extremity: Normal Capillary Refill Integumentary: Normal Color, Dry, Warm Neurologic:Fully Oriented, Alert, Normal Mood/Affect, Normal Response, ED Treatment Course - LABORATORY CBC & Chemistry Diagram: 10/12/17 17:40 10/12/17 17:40 - ADDITIONAL ORDERS Additional order review: 10/12/17 17:40 RBC 4.52 MCV 84.0 MCHC 34.3 RDW 13.6 MPV 8.3 D Neutrophils % 61.2 Lymphocytes % 24.9 Monocytes % 8.8 Eosinophils % 3.4 Basophils % 1.7 Medical Decision Making - Medical Decision Making 10/12/17 19:45 The patient is a 47 year old male with a history of HTN, DM who presents for evaluation of chest pain. Differential includes but is not limited to: ACS, MA , Pneumonia, musculoskeletal, metabolic derangement. Given the patient's symptoms, it is possible that the patient's symptoms are due to musculoskeletal especially given his reproducible tenderness on exam. However, given his significant comorbidities, it is reasonable to evaluate for ACS. We will obtain a cbc, cmp, troponin, chest plain film and EKG to evaluate further. 10/12/17 19:47 cbc, cmp, troponin are negative. Chest plain film is unremarkable as read by our radiologist. EKG is unremarkable. We discussed the case with Dr. Holland who accepted the patient for admission and requests consultation with Dr. Landa with cardiology. *DC/Admit/Observation/Transfer Diagnosis at time of Disposition: Chest pain Qualifiers: Chest pain type: unspecified Qualified Code(s): R07.9 - Chest pain, unspecified - Discharge Dispostion Condition at time of disposition: Guarded Admit: Yes - Referrals Referrals: Mk Dean MD [Primary Care Provider] - - Patient Instructions - Post Discharge Activity
--- NOTE | 2017-10-12 19:33 | PDOC ---
Attending Attestation - Resident Resident Name: John Mckeon - ED Attending Attestation I have performed the following: I have examined & evaluated the patient, The case was reviewed & discussed with the resident, I agree w/resident's findings & plan, Exceptions are as noted - HPI HPI: 10/12/17 19:31 47 year old M c/ pmh of HTN, DM sent in by DR. Dean for admission for chest pain. For 3 days, c/o LSCP radiating to neck occasionally exertional and with SOB. Denies fevers, chills. - Physicial Exam PE: 10/12/17 19:32 GENERAL: Awake, alert, and fully oriented, in no acute distress. HEAD: No signs of trauma EYES: PERRLA, EOMI, sclera anicteric, conjunctiva clear ENT: Auricles normal inspection, hearing grossly normal, nares patent, NECK: Normal ROM LUNGS: Breath sounds equal, clear to auscultation bilaterally. No wheezes, and no crackles HEART: Regular rate and rhythm, normal S1 and S2, no murmurs, rubs or gallops. Left sided reproducible chest pain ABDOMEN: Soft, nontender, normoactive bowel sounds. No guarding, no rebound. No masses EXTREMITIES: Normal range of motion, no edema. No clubbing or cyanosis. No cords, erythema, or tenderness NEUROLOGICAL: Cranial nerves II through XII grossly intact. Normal speech, normal gait SKIN: Warm, Dry, normal turgor, no rashes or lesions noted. - Medical Decision Making 10/12/17 19:32 Vital Signs Temp Pulse Resp BP Pulse Ox 97.1 F L 101 H 18 141/106 100 10/12/17 17:11 10/12/17 17:11 10/12/17 17:11 10/12/17 17:11 10/12/17 17:11 Will PEBBLES. Chest xray, labs, ECG. Aspirin Admit for cardiac workup. Heart Score/ECG Review - History History: Moderately suspicious - Electrocardiogram EKG: Normal - Age Age: 45-65 - Risk Factors Risk Factors Heart Score: Yes Hx Hypertension, Yes Hx Diabetes Based on the list above the patient has:: 1-2 risk factors - Troponin Troponin: </= normal limit - Score Heart Score - Total: 3 #1 ECG reviewed & interpreted by me at: 18:30 10/12/17 19:35 NSR 89 , no std/codi, normal axis, normal intervals, QTC 428 msec.
[2017-10-12] MEDS ORDERED: ACETAMINOPHEN 325 MG TABLET (FP) PO PRN (20:49)
[2017-10-12] MEDS: INSULIN SLIDING SCALE (NOVOLOG) 1 VIAL SQ SCH ×2 (21:32→22:10)
[2017-10-12] MEDS: ATORVASTATIN CA 10 MG TABLET (FP) PO SCH ×2 (21:36→22:09)
[2017-10-13] MEDS ORDERED: ACETAMINOPHEN 325 MG TABLET (FP) ONE (01:17)
[2017-10-13 07:06] LABS: MCH 27.7 pg (25.7-33.7); MCHC 33.3 g/dl (32.0-35.9); MEAN CELL VOLUME 83.2 fl (80-96); MEAN PLT VOLUME 7.9 fl (7.5-11.1); PLATELET COUNT 225 K/MM3 (134-434); RDW 13.5 % (11.9-15.9); WHITE BLOOD COUNT 7.8 K/mm3 (4.0-10.0)
[2017-10-13 07:44] LABS: ALBUMIN 3.1 g/dl (3.4-5.0); ANION GAP 8 (8-16); BILIRUBIN,TOTAL 0.3 mg/dL (0.2-1.0); CALCIUM 8.3 mg/dL (8.5-10.1); CHOLESTEROL 204 mg/dL (50-200); CO2 24 mmol/L (21-32); CREATININE 2.3 mg/dL (0.7-1.3); GLUCOSE,RANDOM 129 mg/dL (74-106); SGOT/AST 21 U/L (15-37); SGPT/ALT 21 U/L (12-78); TOT PROT 7.3 g/dl (6.4-8.2)
[2017-10-13 07:45] LABS: ALK PHOS 95 U/L (45-117); CPK 489 IU/L (39-308); TROPONIN I 0.03 ng/ml (0.00-0.05)
[2017-10-13] MEDS ORDERED: HEMOQUE TEST 1 EACH EACH ONE ×2 (07:46→11:29)
[2017-10-13] MEDS: INSULIN SLIDING SCALE (NOVOLOG) 1 VIAL SQ SCH ×4 (07:51→21:49)
[2017-10-13] MEDS: ASPIRIN 81 MG CHEWABLE TABLETS PO SCH (10:30)
[2017-10-13] MEDS: LOSARTAN POTASSIUM 50 MG TABLET (FP) PO SCH (10:30)
[2017-10-13] MEDS: HYDROCHLOROTHIAZIDE 12.5 MG CAPSULE (FP) PO SCH (10:30)
[2017-10-13] MEDS ORDERED: FLU VACCINE QUAD 60 MCG/0.5 ML (MDV 17-18) IM ONE (11:06)
[2017-10-13] MEDS: COLLAGENASE CLOSTRIDIUM HIST. 30 GRAMS TUBE TP SCH (11:21)
--- NOTE | 2017-10-13 11:23 | HP ---
Admitting History and Physical - Primary Care Physician PCP: kM Dean (GuyIyad) - Admission Chief Complaint: Chest, SOB History of Present Illness: Mr. Schaffer, a pleasant 47 year old male came in through [facility] for chest pain , SOB, dizziness that started 5 days ago. Pain is intermittent ranging between mild to moderate. Pain worsens on exertion, but still has mild pain at rest. Pain starts at mid sternum radiating down his left arm. Patient has a history of HTN, DM- on insulin pump, and hyperlipidemia- not taking his statin because he states he was never told he has high cholesterol. He denies fevers, chills, nausea, vomiting, abdominal pain, or changes with urination or bowel movements Upon evaluation his troponins x 2 were negative,, no changes in EKG, had echo done but results are pending. Cardiology evaluation is pending His last Stress test was 02/21/2016 which showed no ischemia, LVEF was normal. 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 [Santyl -] 1 applic TP DAILY #1 tube MDD 1 Aspirin [ASA -] 81 mg PO DAILY 08/04/17 Losartan/Hydrochlorothiazide [Losartan-Hctz 100-12.5 mg Tab] 1 each PO DAILY 04/15 Acetaminophen [Tylenol .Regular Strength -] 650 mg PO Q6H PRN #0 tablet Atorvastatin Ca [Lipitor] 10 mg PO HS #30 tablet 08/11/17 Diltiazem HCl [Cartia Xt] 120 mg PO DAILY 10/12/17 Review of Systems - Review of Systems Constitutional: reports: No Symptoms Eyes: reports: No Symptoms HENT: reports: No Symptoms Neck: reports: No Symptoms Cardiovascular: reports: Chest Pain, Shortness of Breath Respiratory: reports: SOB Gastrointestinal: reports: No Symptoms Genitourinary: reports: No Symptoms Breasts: reports: No Symptoms Reported Musculoskeletal: reports: No Symptoms Integumentary: reports: No Symptoms Neurological: reports: No Symptoms Endocrine: reports: No Symptoms Hematology/Lymphatic: reports: No Symptoms Psychiatric: reports: No Symptoms Pain Intensity: 5 Physical Examination Vital Signs: Vital Signs Temperature 98.0 F 10/13/17 08:24 Pulse Rate 75 10/13/17 10:52 Respiratory Rate 18 10/13/17 10:52 Blood Pressure 130/84 10/13/17 10:52 O2 Sat by Pulse Oximetry (%) 99 10/13/17 10:52 Constitutional: Yes: Well Nourished, No Distress, Calm Cardiovascular: Yes: Regular Rate and Rhythm Respiratory: Yes: Regular Neurological: Yes: Alert, Oriented Psychiatric: Yes: Alert, Oriented Labs: CBC, BMP 10/13/17 06:25 10/13/17 06:25 Problem List - Problems (1) Diabetes mellitus, insulin dependent (IDDM), uncontrolled Assessment/Plan: -A1c 7.2 Code(s): E10.65 - TYPE 1 DIABETES MELLITUS WITH HYPERGLYCEMIA (2) SOB (shortness of breath) Code(s): R06.02 - SHORTNESS OF BREATH (3) Chest pain Assessment/Plan: -stress test -echo -cardiology consult -morphine and nitro if needed Code(s): R07.9 - CHEST PAIN, UNSPECIFIED Qualifiers: Chest pain type: unspecified Qualified Code(s): R07.9 - Chest pain, unspecified Assessment/Plan see problem list
[2017-10-13] MEDS ORDERED: NITROGLYCERIN SUBLINGUAL 1/150 0.4 MG TAB SL PRN (11:24)
[2017-10-13] MEDS ORDERED: NITROGLYCERIN SUBLINGUAL 1/150 0.4 MG TAB SL ONE (11:25)
--- NOTE | 2017-10-13 13:52 | EKG ---
Test Reason : Blood Pressure : / mmHG Vent. Rate : 089 BPM Atrial Rate : 089 BPM P-R Int : 188 ms QRS Dur : 082 ms QT Int : 352 ms P-R-T Axes : 044 014 020 degrees QTc Int : 428 ms NORMAL SINUS RHYTHM BASELINE ARTIFACT NONSPECIFIC ST AND T WAVE ABNORMALITY WHEN COMPARED WITH ECG OF 09-MAY-2017 20:44, T WAVES ARE FLAT IN aVL Confirmed by KIERSTEN GROVES MD ([id number]) on 10/13/2017 1:52:17 PM Referred By: Confirmed By:KIERSTEN GROVES MD
--- NOTE | 2017-10-13 16:07 | CON.CARD ---
Consult Consult Specialty:: Cardiology - History of Present Illness Chief Complaint: Chest pain History of Present Illness: This is a 47 year old male with a PMH of HTN, HLD, DM, and CRI. Creatinine is 2.3. He present with a 3 day history of intermittent chest pain. He states that the chest pain is worse when lying down but also occurs when he exerts himself. The pain radiates down his left arm, but has no associated nausea or diaphoresis. One year ago he had a normal nuclear stress test (02/21/16). 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 Cardio/Vascular: Yes: HTN Renal/: Yes: Renal Inusuff Infectious Disease: Yes: Other Endocrine: Yes: Diabetes Mellitus - Alcohol/Substance Use Hx Alcohol Use: No History of Substance Use: reports: None - Smoking History Smoking history: Former smoker Have you smoked in the past 12 months: No Aproximately how many cigarettes per day: 2 If you are a former smoker, when did you quit?: 14 yrs ago - Social History Usual Living Arrangement: With Spouse ADL: Independent 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 [Santyl -] 1 applic TP DAILY #1 tube MDD 1 Aspirin [ASA -] 81 mg PO DAILY 08/04/17 Losartan/Hydrochlorothiazide [Losartan-Hctz 100-12.5 mg Tab] 1 each PO DAILY 04/15 Acetaminophen [Tylenol .Regular Strength -] 650 mg PO Q6H PRN #0 tablet Atorvastatin Ca [Lipitor] 10 mg PO HS #30 tablet 08/11/17 Diltiazem HCl [Cartia Xt] 120 mg PO DAILY 10/12/17 Review of Systems Unable to obtain ROS, reason: As per HPI Vital Signs: Vital Signs Temperature 98.2 F 10/13/17 14:55 Pulse Rate 82 10/13/17 14:55 Respiratory Rate 14 10/13/17 14:55 Blood Pressure 142/84 10/13/17 14:55 O2 Sat by Pulse Oximetry (%) 98 10/13/17 12:14 Constitutional: Yes: No Distress HENT: Yes: WNL Neck: Yes: WNL Respiratory: Yes: CTA Bilaterally Gastrointestinal: Yes: Soft Cardiovascular: Yes: Regular Rate and Rhythm (NL S1S2, no MRHG) Edema: RUE: Trace, LLE: Trace Neurological: Yes: Alert (Grossly non focal), Oriented - Other Data Labs, Other Data: CBC, BMP 10/13/17 06:25 10/13/17 06:25 Troponin, BNP 10/12/17 10/13/17 17:40 06:25 Troponin I 0.04 D 0.03 Troponin, BNP 10/12/17 10/13/17 17:40 06:25 Troponin I 0.04 D 0.03 Assessment/Plan Chest pain Has both typical and atypical features Would obtain a pharmacological nuclear stress test Obtain an echocardiogram Follow enzyme sets Given NTP for chest pain Continue ASA 81 mg HTN Losartan 100 mg PO daily Diltiazem 120 mg PO daily HCTZ 12.5 mg PO daily HLD Continue Atorvastatin 10 MG PO daily The triglycerides are significantly elevated, would add [place] 3-acid ethyl esters (fish oil) Further plans pending the stress test results Will follow with you
[2017-10-13] MEDS: ATORVASTATIN CA 10 MG TABLET (FP) PO SCH (21:48)
--- NOTE | 2017-10-13 22:37 | CONSULT ---
Consult Consult Specialty:: endocrine Referred by:: shani norton np Reason for Consultation:: diabetes mellitus - History of Present Illness Chief Complaint: high sugar History of Present Illness: 47 year old male with a history of HTN, DM who presents for evaluation of chest pain. The patient reports a 3 day history of left sided chest pressure worse with exertion with associated radiation into his left arm. 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 CABLE: Yes: Peripheral Neuropathy Cardio/Vascular: Yes: HTN Renal/: Yes: Renal Inusuff Infectious Disease: Yes: Other Endocrine: Yes: Diabetes Mellitus - Alcohol/Substance Use Hx Alcohol Use: No History of Substance Use: reports: None - Smoking History Smoking history: Former smoker Have you smoked in the past 12 months: No Aproximately how many cigarettes per day: 2 If you are a former smoker, when did you quit?: 14 yrs ago - Social History Usual Living Arrangement: With Spouse ADL: Independent 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 [Santyl -] 1 applic TP DAILY #1 tube MDD 1 Aspirin [ASA -] 81 mg PO DAILY 08/04/17 Losartan/Hydrochlorothiazide [Losartan-Hctz 100-12.5 mg Tab] 1 each PO DAILY 04/15 Acetaminophen [Tylenol .Regular Strength -] 650 mg PO Q6H PRN #0 tablet Atorvastatin Ca [Lipitor] 10 mg PO HS #30 tablet 08/11/17 Diltiazem HCl [Cartia Xt] 120 mg PO DAILY 10/12/17 Review of Systems - Review of Systems Constitutional: reports: Lethargy, Unintentional Wgt. Loss Eyes: reports: Blurred Vision HENT: reports: No Symptoms Neck: reports: Decreased ROM Cardiovascular: reports: Shortness of Breath Respiratory: reports: Exercise Intolerance, SOB on Exertion Gastrointestinal: reports: Bloating Genitourinary: reports: No Symptoms Breasts: reports: No Symptoms Reported Musculoskeletal: reports: Decreased ROM, Extremity Pain, Muscle Cramps, Muscle Weakness Integumentary: reports: Wound Neurological: reports: Numbness, Weakness Endocrine: reports: Unexplained Weight Loss Physical Exam Vital Signs: Vital Signs Temperature 98.1 F 10/13/17 20:51 Pulse Rate 73 10/13/17 20:51 Respiratory Rate 18 10/13/17 20:51 Blood Pressure 150/90 10/13/17 20:51 O2 Sat by Pulse Oximetry (%) 96 10/13/17 21:17 Constitutional: Yes: Anxious Eyes: Yes: EOM Intact HENT: Yes: Normocephalic Neck: Yes: Trachea Midline Cardiovascular: Yes: Regular Rate and Rhythm Respiratory: Yes: CTA Bilaterally Gastrointestinal: Yes: Normal Bowel Sounds ...Rectal Exam: Yes: Deferred Renal/: Yes: WNL Breast(s): Yes: WNL Musculoskeletal: Yes: Muscle Weakness Extremities: Yes: Delayed Capillary Refill, Erythema Edema: LLE: 1+, RLE: 1+ Wound/Incision: Yes: Well Approximated, Dressing Dry and Intact Neurological: Yes: Alert, Oriented Labs: CBC, BMP 10/13/17 06:25 10/13/17 06:25 Problem List - Problems (1) SOB (shortness of breath) Code(s): R06.02 - SHORTNESS OF BREATH (2) Diabetes mellitus, insulin dependent (IDDM), uncontrolled Code(s): E10.65 - TYPE 1 DIABETES MELLITUS WITH HYPERGLYCEMIA Qualifiers: Diabetes mellitus complication detail: with diabetic retinopathy (3) Diabetic foot infection Code(s): E11.69 - TYPE 2 DIABETES MELLITUS WITH OTHER SPECIFIED COMPLICATION; L08.9 - LOCAL INFECTION OF THE SKIN AND SUBCUTANEOUS TISSUE, UNSP (4) Diabetic foot ulcer Code(s): E11.621 - TYPE 2 DIABETES MELLITUS WITH FOOT ULCER; L97.509 - NON- PRESSURE CHRONIC ULCER OTH PRT UNSP FOOT W UNSP SEVERITY Qualifiers: Diabetic foot ulcer location: midfoot Diabetes mellitus type: type 2 Non- pressure ulcer stage: with fat layer exposed (5) Diabetic infection of right foot Code(s): E11.69 - TYPE 2 DIABETES MELLITUS WITH OTHER SPECIFIED COMPLICATION; L08.9 - LOCAL INFECTION OF THE SKIN AND SUBCUTANEOUS TISSUE, UNSP Assessment/Plan Current Active Problems Chest pain (Acute) SOB (shortness of breath) (Acute) iddm hyperglycemia insulin pump hyperlipidemia htn ckd Abnormal Lab Results 10/13/17 10/13/17 06:25 06:25 Chloride 108 H BUN 31 H Creatinine 2.3 H Random Glucose 129 H Hemoglobin A1c % 7.2 H D Calcium 8.3 L Creatine Kinase 489 H CK-MB (CK-2) 5.311 H Albumin 3.1 L Triglycerides 349 H D Cholesterol 204 H Total LDL Cholesterol 117 H HDL Cholesterol 33 L Current Medications Generic Name Dose Route Start Last Admin Trade Name Freq PRN Reason Stop Dose Admin Acetaminophen 650 mg 10/12/17 20:49 10/13/17 01:28 Tylenol - PO 650 mg Q6H PRN Administration FEVER OR PAIN Aspirin 81 mg 10/13/17 10:00 10/13/17 10:30 Asa - PO 81 mg DAILY [place] Administration Atorvastatin Calcium 10 mg 10/12/17 21:00 10/13/17 21:48 Lipitor - PO 10 mg HS [place] Administration Collagenase 1 applic 10/13/17 10:00 10/13/17 11:21 Santyl - TP 1 applic DAILY [place] Administration Diltiazem HCl 120 mg 10/13/17 10:00 10/13/17 10:30 Cardizem Cd - PO 120 mg DAILY [place] Administration Hydrochlorothiazide 12.5 mg 10/13/17 10:00 10/13/17 10:30 Hctz - PO 12.5 mg DAILY [place] Administration Insulin Aspart 1 vial 10/12/17 21:00 10/13/17 21:49 Novolog Vial Sliding Scale - SQ Not Given ACHS [facility] Protocol Losartan Potassium 100 mg 10/13/17 10:00 10/13/17 10:30 Cozaar - PO 100 mg DAILY [place] Administration Nitroglycerin 0.4 mg 10/13/17 11:24 Nitrostat - SL Q5M PRN FOR CHEST PAIN plan; bgm qid novolog insulin in pump therapy ck nuclear stress test for cad lipid panel control bp
[2017-10-14] MEDS: INSULIN SLIDING SCALE (NOVOLOG) 1 VIAL SQ SCH ×4 (07:26→21:25)
[2017-10-14 07:59] LABS: CHOLESTEROL 200 mg/dL (50-200)
--- NOTE | 2017-10-14 08:07 | PN ---
Progress Note, Physician History of Present Illness: no cp this am - Current Medication List Current Medications: Active Medications Acetaminophen (Tylenol -) 650 mg PO Q6H PRN PRN Reason: FEVER OR PAIN Last Admin: 10/13/17 01:28 Dose: 650 mg Aspirin (Asa -) 81 mg PO DAILY [facility] Last Admin: 10/13/17 10:30 Dose: 81 mg Atorvastatin Calcium (Lipitor -) 10 mg PO HS [facility] Last Admin: 10/13/17 21:48 Dose: 10 mg Collagenase (Santyl -) 1 applic TP DAILY [facility] Last Admin: 10/13/17 11:21 Dose: 1 applic Diltiazem HCl (Cardizem Cd -) 120 mg PO DAILY [facility] Last Admin: 10/13/17 10:30 Dose: 120 mg Hydrochlorothiazide (Hctz -) 12.5 mg PO DAILY [facility] Last Admin: 10/13/17 10:30 Dose: 12.5 mg Insulin Aspart (Novolog Vial Sliding Scale -) 1 vial SQ ACHS [facility] PRN Reason: Protocol Last Admin: 10/14/17 07:26 Dose: Not Given Losartan Potassium (Cozaar -) 100 mg PO DAILY [facility] Last Admin: 10/13/17 10:30 Dose: 100 mg Nitroglycerin (Nitrostat -) 0.4 mg SL Q5M PRN PRN Reason: FOR CHEST PAIN - Objective Vital Signs: Vital Signs Temperature 97.8 F 10/14/17 02:24 Pulse Rate 77 10/14/17 02:24 Respiratory Rate 18 10/14/17 02:24 Blood Pressure 128/72 10/14/17 02:24 O2 Sat by Pulse Oximetry (%) 96 10/13/17 21:17 Cardiovascular: Yes: Regular Rate and Rhythm Respiratory: Yes: Regular, CTA Bilaterally Gastrointestinal: Yes: Normal Bowel Sounds, Soft Wound/Incision: Yes: Draining, Reddened Labs: CBC, BMP 10/13/17 06:25 10/13/17 06:25 Problem List - Problems (1) Chest pain Assessment/Plan: CE NEGATIVE CARDIO NOTED STRESS TEST Code(s): R07.9 - CHEST PAIN, UNSPECIFIED Qualifiers: Chest pain type: unspecified Qualified Code(s): R07.9 - Chest pain, unspecified (2) Diabetes Assessment/Plan: ENDO ON BOARD BGM Code(s): E11.9 - TYPE 2 DIABETES MELLITUS WITHOUT COMPLICATIONS Qualifiers: Diabetes mellitus type: type 2 Diabetes mellitus complication detail: with unspecified neuropathy (3) Diabetic foot ulcer Assessment/Plan: on [facility] Code(s): E11.621 - TYPE 2 DIABETES MELLITUS WITH FOOT ULCER; L97.509 - NON- PRESSURE CHRONIC ULCER OTH PRT UNSP FOOT W UNSP SEVERITY Qualifiers: Diabetic foot ulcer location: midfoot Diabetes mellitus type: type 2 Non- pressure ulcer stage: with fat layer exposed
[2017-10-14] MEDS ORDERED: REGADENOSON 0.4 MG/5 ML PRE-FILLED SYRINGE IVPUSH ONE (10:00)
[2017-10-14] MEDS: COLLAGENASE CLOSTRIDIUM HIST. 30 GRAMS TUBE TP SCH (10:00)
[2017-10-14] MEDS: HYDROCHLOROTHIAZIDE 12.5 MG CAPSULE (FP) PO SCH (14:28)
[2017-10-14] MEDS: LOSARTAN POTASSIUM 50 MG TABLET (FP) PO SCH (14:28)
[2017-10-14] MEDS: ASPIRIN 81 MG CHEWABLE TABLETS PO SCH (14:28)
--- NOTE | 2017-10-14 19:50 | PN ---
Progress Note, Physician Chief Complaint: Chest pain History of Present Illness: This is a 47 year old male with a PMH of HTN, HLD, DM, and CRI. Creatinine is 2.3. He present with a 3 day history of intermittent chest pain. He states that the chest pain is worse when lying down but also occurs when he exerts himself. The pain radiates down his left arm, but has no associated nausea or diaphoresis. One year ago he had a normal nuclear stress test (02/21/16). EKG non acute Lipid profile Chol 204, LDL 117, HDL 33, Triglycerides 349 Presently he has a blister on his right foot preventing him from using a treadmill 10/14/17 Pharmacologic Nuclear Stress test showed a small, mild basal lateral reversible defect and a moderate size, mild anterior defect. Transferring to [facility] for a cardiac cath. - Current Medication List Current Medications: Active Medications Acetaminophen (Tylenol -) 650 mg PO Q6H PRN PRN Reason: FEVER OR PAIN Last Admin: 10/13/17 01:28 Dose: 650 mg Aspirin (Asa -) 81 mg PO DAILY [facility] Last Admin: 10/14/17 14:28 Dose: 81 mg Atorvastatin Calcium (Lipitor -) 10 mg PO HS [facility] Last Admin: 10/13/17 21:48 Dose: 10 mg Collagenase (Santyl -) 1 applic TP DAILY [facility] Last Admin: 10/14/17 10:00 Dose: 1 applic Diltiazem HCl (Cardizem Cd -) 120 mg PO DAILY [facility] Last Admin: 10/14/17 14:28 Dose: 120 mg Hydrochlorothiazide (Hctz -) 12.5 mg PO DAILY [facility] Last Admin: 10/14/17 14:28 Dose: 12.5 mg Insulin Aspart (Novolog Vial Sliding Scale -) 1 vial SQ ACHS [facility] PRN Reason: Protocol Last Admin: 10/14/17 17:29 Dose: 2 units Losartan Potassium (Cozaar -) 100 mg PO DAILY [facility] Last Admin: 10/14/17 14:28 Dose: 100 mg Nitroglycerin (Nitrostat -) 0.4 mg SL Q5M PRN PRN Reason: FOR CHEST PAIN - Objective Vital Signs: Vital Signs Temperature 98.2 F 10/14/17 17:00 Pulse Rate 87 10/14/17 17:00 Respiratory Rate 20 10/14/17 17:00 Blood Pressure 180/111 10/14/17 17:00 O2 Sat by Pulse Oximetry (%) 97 10/14/17 09:00 Constitutional: Yes: Well Nourished, No Distress Neck: Yes: WNL Cardiovascular: Yes: Regular Rate and Rhythm (NL S1S2, no MRHG) Respiratory: Yes: CTA Bilaterally Gastrointestinal: Yes: Soft Edema: No Neurological: Yes: Alert (Grossly non focal), Oriented Labs: CBC, BMP 10/13/17 06:25 10/13/17 06:25 Assessment/Plan Chest pain Transferring to [facility] for a cardiac cath tomorrow AM Continue ASA 81 mg HTN Losartan 100 mg PO daily Diltiazem 120 mg PO daily Increase HCTZ to 25 mg daily HLD Continue Atorvastatin 10 MG PO daily The triglycerides are significantly elevated, would add [place] 3-acid ethyl esters (fish oil)
[2017-10-14] MEDS: ATORVASTATIN CA 10 MG TABLET (FP) PO SCH (21:27)
--- NOTE | 2017-10-15 00:25 | PN ---
Progress Note, Physician Chief Complaint: chest pain History of Present Illness: iddm,htn,ckd aware of stress test results,given comorbid risk factors,pad diabetic nephropathy and retinopathy - Current Medication List Current Medications: Active Medications Acetaminophen (Tylenol -) 650 mg PO Q6H PRN PRN Reason: FEVER OR PAIN Last Admin: 10/13/17 01:28 Dose: 650 mg Aspirin (Asa -) 81 mg PO DAILY [facility] Last Admin: 10/14/17 14:28 Dose: 81 mg Atorvastatin Calcium (Lipitor -) 10 mg PO HS [facility] Last Admin: 10/14/17 21:27 Dose: 10 mg Collagenase (Santyl -) 1 applic TP DAILY [facility] Last Admin: 10/14/17 10:00 Dose: 1 applic Diltiazem HCl (Cardizem Cd -) 120 mg PO DAILY [facility] Last Admin: 10/14/17 14:28 Dose: 120 mg Hydrochlorothiazide (Hctz -) 12.5 mg PO DAILY [facility] Last Admin: 10/14/17 14:28 Dose: 12.5 mg Insulin Aspart (Novolog Vial Sliding Scale -) 1 vial SQ ACHS [facility] PRN Reason: Protocol Last Admin: 10/14/17 21:25 Dose: Not Given Losartan Potassium (Cozaar -) 100 mg PO DAILY [facility] Last Admin: 10/14/17 14:28 Dose: 100 mg Nitroglycerin (Nitrostat -) 0.4 mg SL Q5M PRN PRN Reason: FOR CHEST PAIN - Objective Vital Signs: Vital Signs Temperature 98.4 F 10/14/17 22:00 Pulse Rate 102 H 10/14/17 22:00 Respiratory Rate 20 10/14/17 22:00 Blood Pressure 140/83 10/14/17 22:00 O2 Sat by Pulse Oximetry (%) 97 10/14/17 21:00 Constitutional: Yes: Well Nourished Eyes: Yes: EOM Intact HENT: Yes: Normocephalic Neck: Yes: Trachea Midline Cardiovascular: Yes: Regular Rate and Rhythm Respiratory: Yes: CTA Bilaterally Gastrointestinal: Yes: Normal Bowel Sounds ...Rectal Exam: Yes: Deferred Genitourinary: Yes: WNL Breast(s): Yes: WNL Musculoskeletal: Yes: Joint Swelling, Muscle Pain, Muscle Weakness Extremities: Yes: Delayed Capillary Refill, Erythema Edema: Yes Peripheral Pulses: Left Doralis Pedis: 1+, Right Dorsalis Pedis: 2+ Wound/Incision: Yes: Clean/Dry Neurological: Yes: Alert, Oriented Labs: CBC, BMP 10/13/17 06:25 10/13/17 06:25 Problem List - Problems (1) SOB (shortness of breath) Code(s): R06.02 - SHORTNESS OF BREATH (2) Diabetes mellitus, insulin dependent (IDDM), uncontrolled Code(s): E10.65 - TYPE 1 DIABETES MELLITUS WITH HYPERGLYCEMIA Qualifiers: Diabetes mellitus complication detail: with diabetic retinopathy Diabetic retinopathy severity: with mild nonproliferative retinopathy (3) Diabetic foot infection Code(s): E11.69 - TYPE 2 DIABETES MELLITUS WITH OTHER SPECIFIED COMPLICATION; L08.9 - LOCAL INFECTION OF THE SKIN AND SUBCUTANEOUS TISSUE, UNSP (4) Diabetic foot ulcer Code(s): E11.621 - TYPE 2 DIABETES MELLITUS WITH FOOT ULCER; L97.509 - NON- PRESSURE CHRONIC ULCER OTH PRT UNSP FOOT W UNSP SEVERITY Qualifiers: Diabetic foot ulcer location: midfoot Diabetes mellitus type: type 2 Non- pressure ulcer stage: with fat layer exposed (5) Diabetic infection of right foot Code(s): E11.69 - TYPE 2 DIABETES MELLITUS WITH OTHER SPECIFIED COMPLICATION; L08.9 - LOCAL INFECTION OF THE SKIN AND SUBCUTANEOUS TISSUE, UNSP Assessment/Plan Current Active Problems Chest pain (Acute) SOB (shortness of breath) (Acute) cad,ashd pad abnormal stress test htn ckd/diabetic nephropathy Abnormal Lab Results 10/14/17 05:20 Triglycerides 389 H Total LDL Cholesterol 119 H HDL Cholesterol 33 L Laboratory Results - last 24 hr 10/14/17 10/14/17 10/14/17 05:20 06:16 15:58 POC Glucometer 155 249 Triglycerides 389 H Cholesterol 200 Total LDL Cholesterol 119 H HDL Cholesterol 33 L 10/14/17 21:15 POC Glucometer 148 Triglycerides Cholesterol Total LDL Cholesterol HDL Cholesterol iddm hyperglycemia Laboratory Tests 05/14/17 05/14/17 05/14/17 05:29 12:10 17:17 Sodium Potassium Chloride Carbon Dioxide Anion Gap BUN Creatinine Creat Clearance w eGFR POC Glucometer 125 194 281 Triglycerides Cholesterol 05/14/17 05/15/17 05/15/17 21:56 05:43 17:39 Sodium Potassium Chloride Carbon Dioxide Anion Gap BUN Creatinine Creat Clearance w eGFR POC Glucometer 287 118 155 Triglycerides Cholesterol 05/15/17 10/13/17 10/14/17 21:50 06:25 05:20 Sodium 140 Potassium 4.3 Chloride 108 H Carbon Dioxide 24 Anion Gap 8 BUN 31 H Creatinine 2.3 H Creat Clearance w eGFR 30.63 POC Glucometer 218 Triglycerides 389 H Cholesterol 200 10/14/17 10/14/17 10/14/17 06:16 15:58 21:15 Sodium Potassium Chloride Carbon Dioxide Anion Gap BUN Creatinine Creat Clearance w eGFR POC Glucometer 155 249 148 Triglycerides Cholesterol plan: renal consult insulin pump therapy with basal bolus pump Current Medications Generic Name Dose Route Start Last Admin Trade Name Freq PRN Reason Stop Dose Admin Acetaminophen 650 mg 10/12/17 20:49 10/13/17 01:28 Tylenol - PO 650 mg Q6H PRN Administration FEVER OR PAIN Aspirin 81 mg 10/13/17 10:00 10/14/17 14:28 Asa - PO 81 mg DAILY [place] Administration Atorvastatin Calcium 10 mg 10/12/17 21:00 10/14/17 21:27 Lipitor - PO 10 mg HS [place] Administration Collagenase 1 applic 10/13/17 10:00 10/14/17 10:00 Santyl - TP 1 applic DAILY [place] Administration Diltiazem HCl 120 mg 10/13/17 10:00 10/14/17 14:28 Cardizem Cd - PO 120 mg DAILY [place] Administration Hydrochlorothiazide 12.5 mg 10/13/17 10:00 10/14/17 14:28 Hctz - PO 12.5 mg DAILY [place] Administration Insulin Aspart 1 vial 10/12/17 21:00 10/14/17 21:25 Novolog Vial Sliding Scale - SQ Not Given ACHS [facility] Protocol Losartan Potassium 100 mg 10/13/17 10:00 10/14/17 14:28 Cozaar - PO 100 mg DAILY [place] Administration Nitroglycerin 0.4 mg 10/13/17 11:24 Nitrostat - SL Q5M PRN FOR CHEST PAIN atorvastatin 40mg daily asa 81mg
[2017-10-15] MEDS ORDERED: ATORVASTATIN CA 40 MG TABLET (FP) PO SCH (00:27)
[2017-10-15] MEDS: INSULIN SLIDING SCALE (NOVOLOG) 1 VIAL SQ SCH (06:08)
--- NOTE | 2017-10-15 08:04 | DS ---
Physical Examination Vital Signs: Vital Signs Temperature 98.2 F 10/15/17 06:00 Pulse Rate 73 10/15/17 06:00 Respiratory Rate 20 10/15/17 06:00 Blood Pressure 124/73 10/15/17 06:00 O2 Sat by Pulse Oximetry (%) 97 10/14/17 21:00 Findings/Remarks: NO CP AT THIS TIME Cardiovascular: Yes: Regular Rate and Rhythm Respiratory: Yes: Regular, CTA Bilaterally Gastrointestinal: Yes: Normal Bowel Sounds, Soft Edema: No Wound/Incision: No: Reddened Labs: CBC, BMP 10/13/17 06:25 10/13/17 06:25 Discharge Summary Reason For Visit: CHEST PAIN Current Active Problems Chest pain (Acute) SOB (shortness of breath) (Acute) Hospital Course: Mr. Schaffer, a pleasant 47 year old male came in through [facility] ER for chest pain , SOB, dizziness that started 5 days ago. Pain is intermittent ranging between mild to moderate. Pain worsens on exertion, but still has mild pain at rest. Pain starts at mid sternum radiating down his left arm. Patient has a history of HTN, DM- on insulin pump, and hyperlipidemia- not taking his statin because he states he was never told he has high cholesterol. He denies fevers, chills, nausea, vomiting, abdominal pain, or changes with urination or bowel movements Upon evaluation his troponins x 2 were negative,, no changes in EKG, had echo done but results are pending. Cardiology evaluation is pending His last Stress test was 02/21/2016 which showed no ischemia, LVEF was normal. History Source: Patient, Medical Record Limitations to Obtaining History: No Limitations - Past Medical History [employer]: Yes: Peripheral Neuropathy Cardiovascular: Yes: HTN Renal/: Yes: Renal Inusuff Infectious Disease: Yes: Other Endocrine: Yes: Diabetes Mellitus - Smoking History Smoking history: Former smoker - Problems (1) Chest pain Assessment/Plan: CE NEGATIVE CARDIO NOTED STRESS TEST POSITIVE--TRANSFER TO [facility] D/W PT SAME MEDS Code(s): R07.9 - CHEST PAIN, UNSPECIFIED Qualifiers: Chest pain type: unspecified Qualified Code(s): R07.9 - Chest pain, unspecified (2) Diabetes Assessment/Plan: ENDO ON BOARD BGM Code(s): E11.9 - TYPE 2 DIABETES MELLITUS WITHOUT COMPLICATIONS Qualifiers: Diabetes mellitus type: type 2 Diabetes mellitus complication detail: with unspecified neuropathy (3) Diabetic foot ulcer Assessment/Plan: on Santyl Code(s): E11.621 - TYPE 2 DIABETES MELLITUS WITH FOOT ULCER; L97.509 - NON- PRESSURE CHRONIC ULCER OTH PRT UNSP FOOT W UNSP SEVERITY Qualifiers: Diabetic foot ulcer location: midfoot Diabetes mellitus type: type 2 Non- pressure ulcer stage: with fat layer exposed Condition: Guarded - Instructions Referrals: Mk Dean MD [Primary Care Provider] - 1 Week - Home Medications Comprehensive Discharge Medication List: Ambulatory Orders Insulin Pump Cartridge [Cartridge] 1 each SCJ ASDIR 03/30/13 Folic Acid 1 mg PO HS 08/20/16 Collagenase Clostridium Hist. [Santyl -] 1 applic TP DAILY #1 tube MDD 1 Aspirin [ASA -] 81 mg PO DAILY 08/04/17 Acetaminophen [Tylenol .Regular Strength -] 650 mg PO Q6H PRN #0 tablet Diltiazem HCl [Cartia Xt] 120 mg PO DAILY 10/12/17 Acetaminophen [Tylenol .Regular Strength -] 650 mg PO Q6H PRN tablet 10/15/17 Atorvastatin Ca [Lipitor] 40 mg PO HS tablet 10/15/17 Collagenase Clostridium Hist. [Santyl -] 1 applic TP DAILY tube 10/15/17 Hydrochlorothiazide [Hctz -] 12.5 mg PO DAILY cap 10/15/17 Insulin Sliding Scale [Novolog Vial Sliding Scale -] 1 vial SQ ACHS units 10/15 Losartan Potassium [Cozaar -] 100 mg PO DAILY tablet 10/15/17 Nitroglycerin Sublingual [Nitrostat -] 0.4 mg SL Q5M PRN tab 10/15/17
[2017-10-15] MEDS: LOSARTAN POTASSIUM 50 MG TABLET (FP) PO SCH (08:33)
[2017-10-15] MEDS: ASPIRIN 81 MG CHEWABLE TABLETS PO SCH (08:33)
[2017-10-15] MEDS: HYDROCHLOROTHIAZIDE 12.5 MG CAPSULE (FP) PO SCH (08:33)
[2017-10-15 09:58] VITALS: BP 157/90; PULSE 84; TEMP 98
== END 2017-10-15 10:40 | disposition short-term general hospital (02) | DRG 198 ==
LOC: JER 17:09 → JERBED 19:50 → UNDOADMIN 19:52 → J4W 10-13 14:37
PROVIDERS: ADMIT Internal Medicine; ATTEND Family Medicine
DX: I25.10 Atherosclerotic heart disease of native coronary artery without angina pectoris (principal); R07.9 Chest pain, unspecified; R06.02 Shortness of breath; E10.21 Type 1 diabetes mellitus with diabetic nephropathy; E10.3299 Type 1 diabetes mellitus with mild nonproliferative diabetic retinopathy without macular edema, unspecified eye; I12.9 Hypertensive chronic kidney disease with stage 1 through stage 4 chronic kidney disease, or unspecified chronic kidney disease; E10.22 Type 1 diabetes mellitus with diabetic chronic kidney disease; N18.9 Chronic kidney disease, unspecified; E78.5 Hyperlipidemia, unspecified; Z87.891 Personal history of nicotine dependence
CPT/HCPCS: 36415; 71020-TC; 78452-TC; 80053; 80061; 82550; 82553; 83036; 83721; 84484; 85025; 85027; 90688; 93005; 93010; 93017; 93306-TC; 99285-25; A9502; J2785

== ENCOUNTER 2017-11-30 14:09 | Emergency (ER) | payer OTHER ==
[2017-11-30 14:16] VITALS: BP 177/97; PULSE 78; TEMP 98.7; BMI 34.5
[2017-11-30] MEDS ORDERED: TETRACAINE 0.5% OPHTH SOLN 2 ML BOTTLE ONE (15:02)
[2017-11-30] MEDS ORDERED: ERYTHROMYCIN 0.5% OPHTHALMIC OINTMENT 3.5 GM TUBE ONE (15:03)
[2017-11-30] MEDS ORDERED: TETRACAINE 0.5% HCL 0.6ML DROPPER.BOTTLE OS ONE (15:05)
[2017-11-30] MEDS ORDERED: ERYTHROMYCIN 0.5% OPHTHALMIC OINTMENT 3.5 GM TUBE OS ONE (15:05)
--- NOTE | 2017-11-30 15:12 | PDOC ---
History of Present Illness - General Chief Complaint: Eye Problem Stated Complaint: EYE PROBLEM Time Seen by Provider: 11/30/17 14:44 History Source: Patient Exam Limitations: No Limitations - History of Present Illness Initial Comments: 11/30/17 15:15 47 yr male history of DM with swelling to left upper eyelid for 4 days and drainage started today. no fever no sick contacts , denies trauma to the eye. no vision change Severity: mild Past History - Past Medical History Allergies/Adverse Reactions: Allergies Allergy/AdvReac Type Severity Reaction Status Date / Time No Known Allergies Allergy Verified 11/30/17 14:17 Home Medications: Ambulatory Orders Insulin Pump Cartridge [Cartridge] 1 each SCJ ASDIR 03/30/13 Folic Acid 1 mg PO HS 08/20/16 Aspirin [ASA -] 81 mg PO DAILY 08/04/17 Acetaminophen [Tylenol .Regular Strength -] 650 mg PO Q6H PRN tablet 10/15/17 Atorvastatin Ca [Lipitor] 40 mg PO HS tablet 10/15/17 Collagenase Clostridium Hist. [Santyl -] 1 applic TP DAILY tube 10/15/17 Insulin Sliding Scale [Novolog Vial Sliding Scale -] 1 vial SQ ACHS units 10/15 Losartan Potassium [Cozaar -] 100 mg PO DAILY tablet 10/15/17 Nitroglycerin Sublingual [Nitrostat -] 0.4 mg SL Q5M PRN tab 10/15/17 Amoxicillin/Potassium Clav [Augmentin 875-125 Tablet] 1 each PO BID #14 tablet 11/30/17 Erythromycin 0.5% Eye Ointment [Erythromycin 0.5% Eye Ointment -] 1 applic OS TID #2 tube 11/30/17 Anemia: No Asthma: No Cancer: No Cardiac Disorders: No CVA: No COPD: No CHF: No DVT: No Dementia: No Diabetes: Yes (INSULIN PUMP) GI Disorders: Yes (GERD) Disorders: Yes (BPH) HTN: Yes Hypercholesterolemia: No Liver Disease: No Seizures: No Thyroid Disease: No - Surgical History Abdominal Surgery: No Appendectomy: No Cardiac Surgery: No Cholecystectomy: No Lung Surgery: No Neurologic Surgery: Yes (LOWER BACK FOR HERNIATED DISC) Orthopedic Surgery: No - Immunization History Td Vaccination: Yes TDAP Vaccination: Yes Immunization Up to Date: Yes - Suicide/Smoking/Psychosocial Hx Smoking Status: No Smoking History: Never smoked Have you smoked in the past 12 months: No Number of Cigarettes Smoked Daily: 2 If you are a former smoker, when did you quit?: 14 yrs ago Information on smoking cessation initiated: No Hx Alcohol Use: No Drug/Substance Use Hx: No Substance Use Type: None Hx Substance Use Treatment: No Review of Systems - Review of Systems Able to Perform ROS?: Yes Constitutional: No: Symptoms Reported HEENTM: Yes: Symptoms Reported *Physical Exam - Vital Signs Last Vital Signs Temp Pulse Resp BP Pulse Ox 98.7 F 78 16 177/97 100 11/30/17 14:12 11/30/17 14:12 11/30/17 14:12 11/30/17 14:12 11/30/17 14:12 - Physical Exam General Appearance: Yes: Nourished, Appropriately Dressed HEENT: positive: EOMI, KAI, TMs Normal, Pharynx Normal, Other (left upper eyelid with stye that is draining, edema to the upper eyelid) Neck: negative: Lymphadenopathy (R), Lymphadenopathy (L) Respiratory/Chest: positive: Lungs Clear, Normal Breath Sounds Cardiovascular: positive: Regular Rhythm, Regular Rate Neurologic: positive: Fully Oriented, Alert, Normal Mood/Affect, Normal Response , Motor Strength 5/5 ED Treatment Course - Medications Given in the ED: ED Medications Discontinued Medications Generic Name Dose Route Start Last Admin Trade Name Sudhakar PRN Reason Stop Dose Admin Erythromycin 1 applic 11/30/17 15:05 11/30/17 15:06 Erythromycin 0.5% Eye Ointment OS 11/30/17 15:06 1 applic ONCE ONE Administration Tetracaine HCl 1 drop 11/30/17 15:05 11/30/17 15:06 Tetravisc 0.5% Eye Drops - OS 11/30/17 15:06 1 drop ONCE ONE Administration Medical Decision Making - Medical Decision Making 11/30/17 15:17 left upper eyelid with stye draining no orbital bone tenderness, neg crepitus or surrounding erythema strict follow up in 48hrs pt placed on Augmentin to cover for preseptal cellultius erythromycin eye ointment for infection in stye pt understands the plan of care and agrees with the plan for follow up all questions asked and answered at discharge *DC/Admit/Observation/Transfer Diagnosis at time of Disposition: Stye external Qualifiers: Laterality: left Eyelid: upper Qualified Code(s): H00.014 - Hordeolum externum left upper eyelid - Discharge Dispostion Disposition: HOME Condition at time of disposition: Fair - Prescriptions Prescriptions: Amoxicillin/Potassium Clav [Augmentin 875-125 Tablet] 1 each PO BID #14 tablet Erythromycin 0.5% Eye Ointment [Erythromycin 0.5% Eye Ointment -] 1 applic OS TID #2 tube - Referrals Referrals: Mk Dean MD [Primary Care Provider] - Francisco Link MD [Staff Physician] - - Patient Instructions Additional Instructions: frequent moist warm compresses to the lid every few hours for 30 minutes apply the eye ointment three times a day as directed take Augmentin as directed you must follow with your doctor, or the eye doctor in 48hrs or return to ER for a follow up check, this is very important to make sure you are seen in 48hrs if any fever, worsening pain or redness return to ER right away - Post Discharge Activity
== END 2017-11-30 15:12 | disposition home or self-care (01) ==
LOC: JERFT 14:09
DX: H00.014 Hordeolum externum left upper eyelid (principal); E10.9 Type 1 diabetes mellitus without complications; Z79.4 Long term (current) use of insulin; Z96.41 Presence of insulin pump (external) (internal); E78.00 Pure hypercholesterolemia, unspecified; N40.0 Benign prostatic hyperplasia without lower urinary tract symptoms; K21.9 Gastro-esophageal reflux disease without esophagitis
CPT/HCPCS: 99281-25

== ENCOUNTER 2017-12-07 23:06 | Inpatient (IN) | payer OTHER ==
[2017-12-07 23:27] VITALS: BMI 35.2
--- NOTE | 2017-12-08 00:17 | PDOC ---
History of Present Illness - General History Source: Patient - History of Present Illness Initial Comments: 12/08/17 00:49 Patient is a 47 y.o. male with a PMH IDDM and HTN as well as diabetic (left) foot ulcers who presents to ER complaining of headache an elevated blood pressure since 12/04/17. Patient states that 4 days ago he has experienced a persistent frontal headache and and elevated blood pressure reading of 135/54. Patient states symptoms worsened two days ago. Patient states he has been taking Tylenol for the pain. Patient also complaining of right foot & leg swelling. He denies nausea, vomiting, fever, chills. He denies cough, SOB, or chest pain. PMD: Dr Howell <Chelly Gutierrez - Last Filed: 12/08/17 01:41> <Fawn Morales - Last Filed: 12/09/17 02:29> - General Chief Complaint: Blood Pressure Problem Stated Complaint: BLOOD PRESSURE PROBLEM Time Seen by Provider: 12/08/17 00:02 Past History <Chelly Gutierrez - Last Filed: 12/08/17 01:41> - Past Medical History Anemia: No Asthma: No Cancer: No Cardiac Disorders: No CVA: No COPD: No CHF: No DVT: No Dementia: No Diabetes: Yes (INSULIN PUMP) GI Disorders: Yes (GERD) Disorders: Yes (BPH) HTN: Yes Hypercholesterolemia: No Liver Disease: No Seizures: No Thyroid Disease: No - Surgical History Abdominal Surgery: No Appendectomy: No Cardiac Surgery: No Cholecystectomy: No Lung Surgery: No Neurologic Surgery: Yes (LOWER BACK FOR HERNIATED DISC) Orthopedic Surgery: No - Immunization History Td Vaccination: Yes TDAP Vaccination: Yes Immunization Up to Date: Yes - Suicide/Smoking/Psychosocial Hx Smoking Status: No Smoking History: Former smoker Have you smoked in the past 12 months: No Number of Cigarettes Smoked Daily: 2 If you are a former smoker, when did you quit?: 14 yrs ago Information on smoking cessation initiated: No Hx Alcohol Use: No Drug/Substance Use Hx: No Substance Use Type: None Hx Substance Use Treatment: No <Fawn Morales - Last Filed: 12/09/17 02:29> - Past Medical History Allergies/Adverse Reactions: Allergies Allergy/AdvReac Type Severity Reaction Status Date / Time No Known Allergies Allergy Verified 11/30/17 14:17 Home Medications: Ambulatory Orders Aspirin Coated [Ecotrin -] 81 mg PO DAILY 12/07/17 Atorvastatin Calcium 80 mg PO HS 12/07/17 Cholecalciferol (Vitamin D3) [Vitamin D3 -] 50,000 unit PO WEEKLY 12/07/17 Dulaglutide [Trulicity] 1.5 mg SQ ASDIR 12/07/17 Folic Acid - 1 mg PO DAILY 12/07/17 Isosorbide Mononitrate [Imdur -] 30 mg PO DAILY 12/07/17 Losartan Potassium [Cozaar -] 50 mg PO DAILY 12/07/17 Metoprolol Succinate [Toprol Xl -] 100 mg PO DAILY 12/07/17 Nitroglycerin Sublingual [Nitrostat -] 0.4 mg SL PRN PRN 12/07/17 Omeprazole 40 mg PO DAILY 12/07/17 Tamsulosin HCl [Flomax] 0.4 mg PO DAILY 12/07/17 Review of Systems - Review of Systems Comments:: 12/08/17 00:49 CONSTITUTIONAL: Absent: fever, no chills, no fatigue EYES: Absent: visual changes ENT: Absent: ear pain, no sore throat CARDIOVASCULAR: Absent: chest pain, no palpitations RESPIRATORY: Absent: cough, no SOB GI: Absent: abdominal pain, no nausea, no vomiting, no constipation, no diarrhea GENITOURINARY: Absent: dysuria, no frequency, no hematuria MUSCULOSKELETAL: Absent: back pain, no arthralgia, no myalgia SKIN: Present: right foot swelling Absent: rash NEURO: Present: frontal headache, elevated bp <Chelly Gutierrez - Last Filed: 12/08/17 01:41> *Physical Exam - Vital Signs Last Vital Signs Temp Pulse Resp BP Pulse Ox 97.9 F 77 18 177/111 98 12/07/17 23:07 12/07/17 23:07 12/07/17 23:07 12/07/17 23:07 12/07/17 23:07 - Physical Exam Comments: 12/08/17 00:50 GENERAL: Well-appearing, well-nourished. No apparent distress. HEENT: No noticeable head trauma.Normocephalic, atraumatic. PERRL, EOM intact. CARDIOVASCULAR: Normal S1, S2. Regular rate and rhythm. PULMONARY: Clear to auscultation bilaterally. ABDOMEN: Soft, non-distended, non-tender. EXTREMITIES: R lower foot and leg swelling. Normal ROM in all four extremities. No gross deformities. SKIN: Warm, dry. No rash NEUROLOGICAL: No focal neurological deficits. Able to ambulate without assistance. <Chelly Gutierrez - Last Filed: 12/08/17 01:41> - Vital Signs Last Vital Signs Temp Pulse Resp BP Pulse Ox 97.9 F 77 18 177/111 98 12/07/17 23:07 12/07/17 23:07 12/07/17 23:07 12/07/17 23:07 12/07/17 23:07 <Fawn Morales - Last Filed: 12/09/17 02:29> ED Treatment Course - LABORATORY CBC & Chemistry Diagram: 12/08/17 01:15 12/08/17 01:15 - RADIOLOGY Radiograph Interpretation: 12/08/17 01:[address] Findings: The ventricular sysem, is midline and nondilated. The sulcal pattern is normal for the patient's age. There is no bleed, mass, extra-axial fluid collection or mass effect. No skull fracture or skull lesion is identified. The visualized paranasal sinuses and mastoid air cells are clear. Impression: normal exam. Reported by: Srikanth Young MD US RLE Findings: There is no DVT in the RLE Reported by Srikanth Young MD <Chelly Gutierrez - Last Filed: 12/08/17 01:41> - LABORATORY CBC & Chemistry Diagram: 12/08/17 01:15 12/08/17 01:15 <Fawn Morales - Last Filed: 12/09/17 02:29> *DC/Admit/Observation/Transfer - Attestations Scribe Attestion: 12/08/17 00:53 Documentation prepared by Chelly Gutierrez, acting as infertility medical assistant for Fawn Morales MD. <Chelly Gutierrez - Last Filed: 12/08/17 01:41> <Fawn Morales - Last Filed: 12/09/17 02:29> Diagnosis at time of Disposition: Elevated troponin, Hypertensive emergency without congestive heart failure - Discharge Dispostion Condition at time of disposition: Fair
[2017-12-08] MEDS ORDERED: ACETAMINOPHEN 500 MG TABLET (FP) PO ONE (00:19)
[2017-12-08] MEDS ORDERED: METOCLOPRAMIDE HCL INJECTION 10 MG/2 ML VIAL IVPB STA (00:19)
[2017-12-08 01:24] LABS: BASO % 1.7 % (0-2.0); EOS % 4.6 % (0-4.5); HEMATOCRIT 35.3 % (35.4-49); HEMOGLOBIN 11.8 GM/dL (11.7-16.9); LYMPH % 31.4 % (8-40); MCHC 33.4 g/dl (32.0-35.9); MEAN CELL VOLUME 83.8 fl (80-96); MEAN PLT VOLUME 8.2 fl (7.5-11.1); MONO % 10.4 % (3.8-10.2); NEUT % 51.9 % (42.8-82.8); PLATELET COUNT 220 K/MM3 (134-434); RBC 4.21 M/mm3 (4.00-5.60); RDW 13.1 % (11.9-15.9); WHITE BLOOD COUNT 7.9 K/mm3 (4.0-10.0)
[2017-12-08] MEDS ORDERED: ACETAMINOPHEN 325 MG TABLET (FP) ONE (01:27)
[2017-12-08] MEDS ORDERED: METOCLOPRAMIDE HCL INJECTION 10 MG/2 ML VIAL ONE (01:27)
[2017-12-08 01:49] LABS: INR 1.03 (0.82-1.09); PROTHROMBIN TIME (PATIENT) 11.6 SEC (9.98-11.88)
[2017-12-08 01:58] LABS: ALBUMIN 3.1 g/dl (3.4-5.0); ANION GAP 8 (8-16); BILIRUBIN,TOTAL 0.3 mg/dL (0.2-1.0); BLOOD UREA NITROGEN 32 mg/dL (7-18); CALCIUM 8.5 mg/dL (8.5-10.1); CHLORIDE 104 mmol/L (98-107); CO2 28 mmol/L (21-32); CREATININE 2.4 mg/dL (0.7-1.3); GLUCOSE,RANDOM 199 mg/dL (74-106); POTASSIUM 4.3 mmol/L (3.5-5.1); SGOT/AST 34 U/L (15-37); SGPT/ALT 26 U/L (12-78); SODIUM 140 mmol/L (136-145); TOT PROT 7.6 g/dl (6.4-8.2)
[2017-12-08 02:10] LABS: ALK PHOS 118 U/L (45-117)
[2017-12-08] MEDS ORDERED: ASPIRIN 81 MG CHEWABLE TABLETS PO ONE (02:42)
[2017-12-08] MEDS ORDERED: ISOSORBIDE MONONITRATE 30 MG TAB.SR.24H (FP) PO ONE (02:42)
--- NOTE | 2017-12-08 02:49 | PDOC ---
*Physical Exam - Vital Signs Last Vital Signs Temp Pulse Resp BP Pulse Ox 97.7 F 79 18 174/100 96 12/08/17 02:41 12/08/17 02:41 12/08/17 02:41 12/08/17 02:41 12/08/17 02:41 - Physical Exam Comments: 12/08/17 02:45 gen: sleeping, easily arousable heart: +s1s2 reg lungs: cta abd: soft, nt/nd ED Treatment Course - LABORATORY CBC & Chemistry Diagram: 12/08/17 01:15 12/08/17 01:15 - ADDITIONAL ORDERS Additional order review: Laboratory Results 12/08/17 12/08/17 01:15 01:15 PT with INR 11.60 INR 1.03 Sodium 140 Potassium 4.3 Chloride 104 Carbon Dioxide 28 Anion Gap 8 BUN 32 H Creatinine 2.4 H Creat Clearance w eGFR 29.16 Random Glucose 199 H D Calcium 8.5 Total Bilirubin 0.3 AST 34 D ALT 26 D Alkaline Phosphatase 118 H D Creatine Kinase 1121 H Creatine Kinase Index 0.9 CK-MB (CK-2) 10.296 H Troponin I 0.10 H D Total Protein 7.6 Albumin 3.1 L 12/08/17 01:15 RBC 4.21 MCV 83.8 MCHC 33.4 RDW 13.1 MPV 8.2 Neutrophils % 51.9 Lymphocytes % 31.4 D Monocytes % 10.4 H Eosinophils % 4.6 H Basophils % 1.7 - Medications Given in the ED: ED Medications Discontinued Medications Generic Name Dose Route Start Last Admin Trade Name Kevinq PRN Reason Stop Dose Admin Acetaminophen 975 mg 12/08/17 00:19 12/08/17 01:39 Tylenol - PO 12/08/17 00:20 975 mg ONCE ONE Administration Diphenhydramine HCl 25 mg 12/08/17 00:19 12/08/17 01:38 Benadryl Injection - IVPUSH 12/08/17 00:20 25 mg ONCE ONE Administration Metoclopramide HCl 10 mg 12/08/17 00:19 12/08/17 01:39 Reglan Injection - IVPB 12/08/17 00:20 10 mg ONCE STA Administration Medical Decision Making - Medical Decision Making 12/08/17 02:46 pt signed out pending labs and repeat vitals pt with elevated trop and baseline ckd pt with hypertension headache resolved head ct negative had cp earlier today, currently cp free will dose imdur here, will keep today follows with dr. samuels - admits to [facility] who is covered by [employer] 12/08/17 03:[address] thompson who accept pt to obs tele *DC/Admit/Observation/Transfer Diagnosis at time of Disposition: Elevated troponin, Hypertensive emergency without congestive heart failure - Discharge Dispostion Condition at time of disposition: Fair Admit: Yes - Referrals Referrals: Mk Samuels MD [Primary Care Provider] - - Patient Instructions - Post Discharge Activity
[2017-12-08] MEDS ORDERED: ASPIRIN 81 MG CHEWABLE TABLETS ONE (02:59)
[2017-12-08] MEDS ORDERED: ISOSORBIDE MONONITRATE 60 MG TAB.SR.24H (FP) PO ONE (02:59)
[2017-12-08] MEDS ORDERED: METOPROLOL SUCCINATE 100 MG TAB.SR.24H (FP) PO ONE (03:05)
[2017-12-08] MEDS ORDERED: METOPROLOL SUCCINATE 50 MG TAB.SR.24H (FP) ONE (03:17)
--- NOTE | 2017-12-08 04:19 | HP ---
Admitting History and Physical - Primary Care Physician PCP: Mk Dean - Admission Chief Complaint: Headache, Elevated BP, Chest Pressure, R- leg swelling History of Present Illness: This is a 47 y/o man with a PMHx of: IDDM (Insulin Pump), HTN, Renal Insufficiency, Peripheral Neuropathy, BPH, GERD. Who presents with a frontal headache, elevated blood pressure 190's/110's x 4 days. Patient reports having chest pressure non-radiating last night, and right lower leg swelling x 1 day. Patient reports having headaches in the past that was relieved with Tylenol, this time it was constant with no relief. Patient reports dizziness and blurred vision associated with the ODELL. After receiving treatment in the ED- the ODELL is now resolved. Patient denies fever, chills, cough, SOB, palpitations, AP, N/V/D , constipation, dysuria. Patient denies calf pain. History Source: Patient Limitations to Obtaining History: No Limitations - Past Medical History SYSTEMS SUPPORT ENGINEER: Yes: Peripheral Neuropathy Cardiovascular: Yes: HTN Gastrointestinal: Yes: GERD Renal/: Yes: Renal Inusuff, BPH Infectious Disease: Yes: Other Musculoskeletal: Yes: Other (herniated discs) Endocrine: Yes: Diabetes Mellitus - Past Surgical History Past Surgical History: Yes: Laminectomy - Smoking History Smoking history: Former smoker Have you smoked in the past 12 months: No Aproximately how many cigarettes per day: 2 If you are a former smoker, when did you quit?: 14 yrs ago - Alcohol/Substance Use Hx Alcohol Use: No History of Substance Use: reports: None - Social History Usual Living Arrangement: Yes: With Spouse ADL: Independent 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 History of Recent Travel: No Home Medications - Allergies Allergies/Adverse Reactions: Allergies Allergy/AdvReac Type Severity Reaction Status Date / Time No Known Allergies Allergy Verified 11/30/17 14:17 - Home Medications Home Medications: Ambulatory Orders Aspirin Coated [Ecotrin -] 81 mg PO DAILY 12/07/17 Atorvastatin Calcium 80 mg PO HS 12/07/17 Cholecalciferol (Vitamin D3) [Vitamin D3 -] 50,000 unit PO WEEKLY 12/07/17 Dulaglutide [Trulicity] 1.5 mg SQ ASDIR 12/07/17 Folic Acid - 1 mg PO DAILY 12/07/17 Isosorbide Mononitrate [Imdur -] 30 mg PO DAILY 12/07/17 Losartan Potassium [Cozaar -] 50 mg PO DAILY 12/07/17 Metoprolol Succinate [Toprol Xl -] 100 mg PO DAILY 12/07/17 Nitroglycerin Sublingual [Nitrostat -] 0.4 mg SL PRN PRN 12/07/17 Omeprazole 40 mg PO DAILY 12/07/17 Tamsulosin HCl [Flomax] 0.4 mg PO DAILY 12/07/17 Family Disease History - Family Disease History Family Disease History: Diabetes: Grandparent Review of Systems - Review of Systems Constitutional: reports: No Symptoms Eyes: reports: Blurred Vision HENT: reports: No Symptoms Neck: reports: No Symptoms Cardiovascular: reports: Chest Pain Respiratory: reports: No Symptoms Gastrointestinal: reports: No Symptoms Genitourinary: reports: No Symptoms Breasts: reports: No Symptoms Reported Musculoskeletal: reports: Other (RLE swelling) Integumentary: reports: No Symptoms Neurological: reports: Headache Endocrine: reports: No Symptoms Hematology/Lymphatic: reports: No Symptoms Psychiatric: reports: No Symptoms Physical Examination Vital Signs: Vital Signs Temperature 97.7 F 12/08/17 02:41 Pulse Rate 79 12/08/17 02:41 Respiratory Rate 18 12/08/17 02:41 Blood Pressure 174/100 12/08/17 02:41 O2 Sat by Pulse Oximetry (%) 96 12/08/17 02:41 Constitutional: Yes: Well Nourished, No Distress, Calm, Obese Eyes: Yes: WNL, Conjunctiva Clear, EOM Intact, PERRL HENT: Yes: WNL, Atraumatic, Normocephalic Neck: Yes: WNL, Supple, Trachea Midline Cardiovascular: Yes: WNL, Regular Rate and Rhythm, S1, S2 Respiratory: Yes: WNL, Regular, CTA Bilaterally Gastrointestinal: Yes: WNL, Normal Bowel Sounds, Soft ...Rectal Exam: Yes: Deferred Renal/: Yes: WNL Breast(s): Yes: WNL Musculoskeletal: Yes: WNL Extremities: Yes: WNL Edema: Yes Edema: LLE: 1+, RLE: 1+ Peripheral Pulses WNL: Yes Integumentary: Yes: Venous Stasis Changes (bilateral legs) Neurological: Yes: WNL, Alert, Oriented, Cran Nerves II-XII Intact ...Motor Strength: WNL Psychiatric: Yes: WNL, Alert, Oriented Labs: CBC, BMP 12/08/17 01:15 12/08/17 01:15 Laboratory Results - last 24 hr 12/08/17 12/08/17 12/08/17 01:15 01:15 01:15 WBC 7.9 RBC 4.21 Hgb 11.8 Hct 35.3 L MCV 83.8 MCH 28.0 MCHC 33.4 RDW 13.1 Plt Count 220 MPV 8.2 Neutrophils % 51.9 Lymphocytes % 31.4 D Monocytes % 10.4 H Eosinophils % 4.6 H Basophils % 1.7 PT with INR 11.60 INR 1.03 Sodium 140 Potassium 4.3 Chloride 104 Carbon Dioxide 28 Anion Gap 8 BUN 32 H Creatinine 2.4 H Creat Clearance w eGFR 29.16 Random Glucose 199 H D Calcium 8.5 Total Bilirubin 0.3 AST 34 D ALT 26 D Alkaline Phosphatase 118 H D Creatine Kinase 1121 H Creatine Kinase Index 0.9 CK-MB (CK-2) 10.296 H Troponin I 0.10 H D Total Protein 7.6 Albumin 3.1 L Intake & Output 12/05/17 12/06/17 12/07/17 12/08/17 23:59 23:59 23:59 23:59 Weight 117.934 kg Current Medications Generic Name Dose Route Start Last Admin Trade Name Kevinq PRN Reason Stop Dose Admin Aspirin 81 mg 12/08/17 10:00 Ecotrin - PO DAILY [facility] Atorvastatin Calcium 80 mg 12/08/17 22:00 Lipitor - PO HS [facility] Folic Acid 1 mg 12/08/17 10:00 Folic Acid - PO DAILY [facility] Insulin Aspart 1 vial 12/08/17 07:00 Novolog Vial Sliding Scale - SQ TIDAC [facility] Protocol Isosorbide Mononitrate 30 mg 12/08/17 10:00 Imdur - PO DAILY [facility] Losartan Potassium 50 mg 12/08/17 10:00 Cozaar - PO DAILY [facility] Metoprolol Succinate 100 mg 12/08/17 10:00 Toprol Xl - PO DAILY [facility] Non-Formulary Medication 40 mg 12/08/17 10:00 Omeprazole [Omeprazole] PO DAILY [facility] Tamsulosin HCl 0.4 mg 12/08/17 10:00 Flomax - PO DAILY [facility] Imaging - Results Chest X-ray: Image Reviewed Cat Scan: Report Reviewed (Head CT- neg ICH, mass or lesion), Image Reviewed Ultrasound: Report Reviewed (Duplex RLE- neg DVT), Image Reviewed Problem List - Problems (1) Uncontrolled hypertension Assessment/Plan: - Tele monitoring - Metoprolol given in ED- BP improved - Will continue home meds - Appreciate Cardiology Consult - Monitor renal function Code(s): I10 - ESSENTIAL (PRIMARY) HYPERTENSION (2) Headache Assessment/Plan: - Likely secondary to Hypertension vs Migraine vs Tumor - Head CT- neg ICH, mass or lesion - Reglan, Benadryl given in ED- ODELL resolved - Consider Neurology Consult outpatient for further work-up - Monitor vitals Code(s): R51 - HEADACHE (3) Chest pain Assessment/Plan: -r/o ACS - Tele monitoring - HEART Score 4 - Serial Enzymes - Appreciate Cardiology consult - Lipid Panel, HgbA1c in am - Asa,Metoprolol - Echo 10/13/17- lv ns, la nl, ra nl, mild-mod as, mid mr, ar ns, no pericardial effusion Code(s): R07.9 - CHEST PAIN, UNSPECIFIED Qualifiers: Chest pain type: unspecified Qualified Code(s): R07.9 - Chest pain, unspecified (4) Diabetes Assessment/Plan: - BGMs - Continue insulin pump - ISS - HgbA1c in am Code(s): E11.9 - TYPE 2 DIABETES MELLITUS WITHOUT COMPLICATIONS Qualifiers: Diabetes mellitus type: type 2 Diabetes mellitus complication detail: with unspecified neuropathy (5) DVT prophylaxis Assessment/Plan: - OOB - SCDs Code(s): [id number] - Assessment/Plan 47 y/o man PMHx of IDDM, HTN, RI, GERD, PN. Placed on Tele Observation Chest Pain r/o ACS, Elevated Troponin, Uncontrolled Hypertension. Plan: FEN - PO fluids - Replete lytes prn - Low Na, Diabetic Diet Code Status: Full Code Dispo: Observation
[2017-12-08] MEDS ORDERED: HEMOQUE TEST 1 EACH EACH ONE (07:44)
[2017-12-08] MEDS ORDERED: INSULIN (NOVOLOG) ASPART 100 UNITS/ML 10ML VIAL ONE (07:49)
[2017-12-08 07:50] LABS: MAGNESIUM 1.8 mg/dL (1.8-2.4)
[2017-12-08 07:57] LABS: PHOSPHOROUS 3.2 mg/dL (2.5-4.9)
[2017-12-08] MEDS: INSULIN SLIDING SCALE (NOVOLOG) 1 VIAL SQ SCH ×3 (08:05→17:26)
[2017-12-08] MEDS ORDERED: TAMSULOSIN HCL 0.4 MG CAP.ER.24H (FP) ONE (08:37)
[2017-12-08] MEDS: TAMSULOSIN HCL 0.4 MG CAP.ER.24H (FP) PO SCH (08:41)
[2017-12-08] MEDS: PANTOPRAZOLE 40 MG TABLET (FP) PO SCH (10:23)
[2017-12-08] MEDS: LOSARTAN POTASSIUM 50 MG TABLET (FP) PO SCH (10:23)
[2017-12-08] MEDS: FOLIC ACID 1 MG TABLET (FP) PO SCH (10:23)
[2017-12-08] MEDS: METOPROLOL SUCCINATE 100 MG TAB.SR.24H (FP) PO SCH (10:23)
[2017-12-08] MEDS: ISOSORBIDE MONONITRATE 30 MG TAB.SR.24H (FP) PO SCH (10:23)
[2017-12-08] MEDS: ASPIRIN COATED 81 MG TABLET.EC PO SCH (10:23)
[2017-12-08] MEDS ORDERED: LIDOCAINE VISCOUS 2% ORAL/TOP 20 ML UNIT-DOSE CUP ONE (11:31)
--- NOTE | 2017-12-08 12:27 | CON.CARD ---
Consult Consult Specialty:: Cardiology Referred by:: ER Reason for Consultation:: elevated troponin - History of Present Illness Chief Complaint: headache History of Present Illness: He is a 47 y/o man with a history of IDDM, HTN, CKD stage 4, Peripheral Neuropathy, BPH, GERD who presents with a frontal headache, elevated blood pressure 190's/110's x 4 days. Denies chest pain, sob, orthopnea, PND or edema. No palpitations, dizziness or syncope. CTH negative. Noted with normal ECG and elevated troponin. Creat 2.4. - History Source History Provided By: Patient, Medical Record Limitations to Obtaining History: No Limitations - Past Medical History CLIENT ARCHITECT: Yes: Peripheral Neuropathy Cardio/Vascular: Yes: HTN Gastrointestinal: Yes: GERD Renal/: Yes: Renal Inusuff, BPH Infectious Disease: Yes: Other Musculoskeletal: Yes: Other (herniated discs) Endocrine: Yes: Diabetes Mellitus - Past Surgical History Past Surgical History: Yes: Laminectomy - Alcohol/Substance Use Hx Alcohol Use: No History of Substance Use: reports: None - Smoking History Smoking history: Former smoker Have you smoked in the past 12 months: No Aproximately how many cigarettes per day: 2 If you are a former smoker, when did you quit?: 14 yrs ago - Social History Usual Living Arrangement: With Spouse ADL: Independent 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 History of Recent Travel: No Home Medications - Allergies Allergies/Adverse Reactions: Allergies Allergy/AdvReac Type Severity Reaction Status Date / Time No Known Allergies Allergy Verified 11/30/17 14:17 - Home Medications Home Medications: Ambulatory Orders Aspirin Coated [Ecotrin -] 81 mg PO DAILY 12/07/17 Atorvastatin Calcium 80 mg PO HS 12/07/17 Cholecalciferol (Vitamin D3) [Vitamin D3 -] 50,000 unit PO WEEKLY 12/07/17 Dulaglutide [Trulicity] 1.5 mg SQ ASDIR 12/07/17 Folic Acid - 1 mg PO DAILY 12/07/17 Isosorbide Mononitrate [Imdur -] 30 mg PO DAILY 12/07/17 Losartan Potassium [Cozaar -] 50 mg PO DAILY 12/07/17 Metoprolol Succinate [Toprol Xl -] 100 mg PO DAILY 12/07/17 Nitroglycerin Sublingual [Nitrostat -] 0.4 mg SL PRN PRN 12/07/17 Omeprazole 40 mg PO DAILY 12/07/17 Tamsulosin HCl [Flomax] 0.4 mg PO DAILY 12/07/17 Family Disease History - Family Disease History Family Disease History: Diabetes: Grandparent Vital Signs: Vital Signs Temperature 97.9 F 12/08/17 10:14 Pulse Rate 67 12/08/17 10:14 Respiratory Rate 16 12/08/17 10:14 Blood Pressure 140/90 12/08/17 10:14 O2 Sat by Pulse Oximetry (%) 95 12/08/17 06:48 Constitutional: Yes: Well Nourished, No Distress Eyes: Yes: Conjunctiva Clear, EOM Intact HENT: Yes: Atraumatic, Normocephalic Neck: Yes: Supple, Trachea Midline Respiratory: Yes: CTA Bilaterally Gastrointestinal: Yes: Normal Bowel Sounds, Soft Cardiovascular: Yes: Regular Rate and Rhythm JVD: No Carotid Bruit: No PMI: Non-Displaced Heart Sounds: Yes: S1, S2 Musculoskeletal: Yes: WNL Extremities: Yes: WNL Edema: Yes Edema: RLE: 2+ Peripheral Pulses WNL: Yes - Other Data Labs, Other Data: CBC, BMP 12/08/17 01:15 12/08/17 01:15 INR, PTT INR 1.03 (0.82-1.09) 12/08/17 01:15 Troponin, BNP 12/08/17 12/08/17 01:15 07:04 Troponin I 0.10 H D 0.10 H Troponin, BNP 12/08/17 12/08/17 01:15 07:04 Troponin I 0.10 H D 0.10 H Imaging - Results EKG: Report Reviewed (normal ECG) Other: Report Reviewed (duplex no DVT) Problem List - Problems (1) Elevated troponin Assessment/Plan: His troponin elevation is due to renal insufficiency. He is a poor cath candidate and has no symptoms. Echo ordered. Needs BP control and diabetes control. continue medical management. Code(s): R74.8 - ABNORMAL LEVELS OF OTHER SERUM ENZYMES
--- NOTE | 2017-12-08 14:45 | EKG ---
Test Reason : Blood Pressure : / mmHG Vent. Rate : 069 BPM Atrial Rate : 069 BPM P-R Int : 188 ms QRS Dur : 084 ms QT Int : 386 ms P-R-T Axes : 036 018 038 degrees QTc Int : 413 ms NORMAL SINUS RHYTHM NORMAL ECG WHEN COMPARED WITH ECG OF 12-OCT-2017 18:25, NO SIGNIFICANT CHANGE WAS FOUND Confirmed by Andrea Landa MD ([id number]) on 12/08/2017 2:45:18 PM Referred By: Confirmed By:Andrea Landa MD
[2017-12-08] MEDS ORDERED: SUMAtriptan SUCCINATE 50 MG TABLET ONE (16:16)
[2017-12-08] MEDS: SUMAtriptan SUCCINATE 50 MG TABLET PO ONE ×2 (16:20→16:35)
[2017-12-08] MEDS ORDERED: ACETAMINOPHEN/CAFFEINE/BUTALBITAL 1 TAB ONE (20:18)
[2017-12-08] MEDS: ACETAMINOPHEN/CAFFEINE/BUTALBITAL 1 TAB PO PRN (20:22)
[2017-12-08] MEDS: ATORVASTATIN CA 80 MG TABLET (FP) PO SCH (22:05)
--- NOTE | 2017-12-09 01:17 | CONSULT ---
Consult Consult Specialty:: ENDOCRINE Referred by:: AMITA WILLIAM MD Reason for Consultation:: IDDM - History of Present Illness Chief Complaint: HIGH SUGAR AND CHEST PAIN History of Present Illness: 47 y/o man with a PMHx of: IDDM (Insulin Pump), HTN, Renal Insufficiency, Peripheral Neuropathy, BPH, GERD. Who presents with a frontal headache, elevated blood pressure 190's/110's x 4 days. Patient reports having chest pressure non-radiating last night, and right lower leg swelling x 1 day. 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: Peripheral Neuropathy Cardio/Vascular: Yes: HTN Gastrointestinal: Yes: GERD Renal/: Yes: Renal Inusuff, BPH Infectious Disease: Yes: Other Musculoskeletal: Yes: Other (herniated discs) Endocrine: Yes: Diabetes Mellitus - Past Surgical History Past Surgical History: Yes: Laminectomy - Alcohol/Substance Use Hx Alcohol Use: No History of Substance Use: reports: None - Smoking History Smoking history: Former smoker Have you smoked in the past 12 months: No Aproximately how many cigarettes per day: 2 If you are a former smoker, when did you quit?: 14 yrs ago - Social History Usual Living Arrangement: With Spouse ADL: Independent 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 History of Recent Travel: No Home Medications - Allergies Allergies/Adverse Reactions: Allergies Allergy/AdvReac Type Severity Reaction Status Date / Time No Known Allergies Allergy Verified 11/30/17 14:17 - Home Medications Home Medications: Ambulatory Orders Aspirin Coated [Ecotrin -] 81 mg PO DAILY 12/07/17 Atorvastatin Calcium 80 mg PO HS 12/07/17 Cholecalciferol (Vitamin D3) [Vitamin D3 -] 50,000 unit PO WEEKLY 12/07/17 Dulaglutide [Trulicity] 1.5 mg SQ ASDIR 12/07/17 Folic Acid - 1 mg PO DAILY 12/07/17 Isosorbide Mononitrate [Imdur -] 30 mg PO DAILY 12/07/17 Losartan Potassium [Cozaar -] 50 mg PO DAILY 12/07/17 Metoprolol Succinate [Toprol Xl -] 100 mg PO DAILY 12/07/17 Nitroglycerin Sublingual [Nitrostat -] 0.4 mg SL PRN PRN 12/07/17 Omeprazole 40 mg PO DAILY 12/07/17 Tamsulosin HCl [Flomax] 0.4 mg PO DAILY 12/07/17 Family Disease History - Family Disease History Family Disease History: Diabetes: Grandparent Review of Systems - Review of Systems Constitutional: reports: Lethargy, Weakness Eyes: reports: No Symptoms HENT: reports: No Symptoms Neck: reports: No Symptoms Cardiovascular: reports: Shortness of Breath Respiratory: reports: Exercise Intolerance, SOB on Exertion Gastrointestinal: reports: No Symptoms Genitourinary: reports: No Symptoms Breasts: reports: No Symptoms Reported Musculoskeletal: reports: Back Pain, Extremity Pain, Muscle Cramps Integumentary: reports: Wound Neurological: reports: Numbness, Weakness Endocrine: reports: Unexplained Weight Gain Physical Exam Vital Signs: Vital Signs Temperature 98.6 F 12/08/17 16:24 Pulse Rate 75 12/08/17 16:24 Respiratory Rate 18 12/08/17 16:24 Blood Pressure 135/76 12/08/17 16:24 O2 Sat by Pulse Oximetry (%) 95 12/08/17 16:00 Constitutional: Yes: Anxious Eyes: Yes: EOM Intact HENT: Yes: Normocephalic Neck: Yes: Trachea Midline Cardiovascular: Yes: Regular Rate and Rhythm Respiratory: Yes: CTA Bilaterally Gastrointestinal: Yes: Normal Bowel Sounds ...Rectal Exam: Yes: Deferred Renal/: Yes: WNL Breast(s): Yes: WNL Musculoskeletal: Yes: Back Pain, Joint Swelling, Muscle Pain, Muscle Weakness Extremities: Yes: Delayed Capillary Refill Neurological: Yes: Alert, Oriented, Numbness, Tingling, Weakness Labs: CBC, BMP 12/08/17 01:15 12/08/17 01:15 Problem List - Problems (1) Type 2 diabetes mellitus with hyperosmolarity without nonketotic hyperglycemic-hyperosmolar coma ([facility]) Code(s): E11.00 - TYPE 2 DIAB W HYPROSM W/O NONKET HYPRGLY-HYPROS COMA ([facility]) (2) DVT prophylaxis Code(s): [id number] - (3) Elevated troponin Code(s): R74.8 - ABNORMAL LEVELS OF OTHER SERUM ENZYMES (4) Headache Code(s): R51 - HEADACHE (5) Hypertensive emergency without congestive heart failure Code(s): I16.1 - HYPERTENSIVE EMERGENCY (6) Uncontrolled hypertension Code(s): I10 - ESSENTIAL (PRIMARY) HYPERTENSION (7) Chest pain Code(s): R07.9 - CHEST PAIN, UNSPECIFIED Qualifiers: Chest pain type: unspecified Qualified Code(s): R07.9 - Chest pain, unspecified Assessment/Plan Current Active Problems DVT prophylaxis (Acute)plan: Elevated troponin (Acute) Headache (Acute) Hypertensive emergency without congestive heart failure (Acute) Type 2 diabetes mellitus with hyperosmolarity without nonketotic hyperglycemic- hyperosmolar coma ([facility]) (Acute) Uncontrolled hypertension (Acute) Abnormal Lab Results 12/08/17 12/08/17 12/08/17 01:15 01:15 07:04 Hct 35.3 L Monocytes % 10.4 H Eosinophils % 4.6 H BUN 32 H Creatinine 2.4 H Random Glucose 199 H D Hemoglobin A1c % Alkaline Phosphatase 118 H D Creatine Kinase 1121 H 879 H CK-MB (CK-2) 10.296 H 7.571 H Troponin I 0.10 H D 0.10 H Albumin 3.1 L Triglycerides 217 H D 12/08/17 07:09 Hct Monocytes % Eosinophils % BUN Creatinine Random Glucose Hemoglobin A1c % 9.4 H D Alkaline Phosphatase Creatine Kinase CK-MB (CK-2) Troponin I Albumin Triglycerides plan: insulin pump external device minimed patient demonstrated skill and knowledge using pump device for past 5years he is capable of using basal bolus insulin dosing bgm qachs
[2017-12-09] MEDS: ACETAMINOPHEN/CAFFEINE/BUTALBITAL 1 TAB PO PRN (01:58)
[2017-12-09] MEDS ORDERED: METOPROLOL TARTRATE 25 MG TABLET (FP) PO ONE (02:18)
[2017-12-09] MEDS: INSULIN SLIDING SCALE (NOVOLOG) 1 VIAL SQ SCH ×3 (06:37→18:49)
[2017-12-09] MEDS: ASPIRIN COATED 81 MG TABLET.EC PO SCH ×2 (08:38→11:09)
[2017-12-09] MEDS: LOSARTAN POTASSIUM 50 MG TABLET (FP) PO SCH ×2 (08:38→11:09)
[2017-12-09] MEDS: TAMSULOSIN HCL 0.4 MG CAP.ER.24H (FP) PO SCH (08:39)
[2017-12-09] MEDS: FOLIC ACID 1 MG TABLET (FP) PO SCH ×2 (08:39→11:09)
[2017-12-09] MEDS: PANTOPRAZOLE 40 MG TABLET (FP) PO SCH ×2 (08:39→11:09)
[2017-12-09] MEDS: ISOSORBIDE MONONITRATE 30 MG TAB.SR.24H (FP) PO SCH ×2 (08:39→11:09)
[2017-12-09] MEDS: METOPROLOL SUCCINATE 100 MG TAB.SR.24H (FP) PO SCH ×2 (08:39→11:09)
--- NOTE | 2017-12-09 08:48 | PN ---
Progress Note, Physician History of Present Illness: 47 y/o man PMHx of IDDM, HTN, RI, GERD, PN. Placed on Tele Observation Chest Pain r/o ACS, Elevated Troponin, Uncontrolled Hypertension. - Current Medication List Current Medications: Active Medications Acetaminophen/Butalbital/Caffeine (Fioricet -) 1 tablet PO Q4H PRN PRN Reason: HEADACHE Last Admin: 12/09/17 01:58 Dose: 1 tablet Aspirin (Ecotrin -) 81 mg PO DAILY [facility] Last Admin: 12/09/17 08:38 Dose: 81 mg Atorvastatin Calcium (Lipitor -) 80 mg PO HS [facility] Last Admin: 12/08/17 22:05 Dose: 80 mg Folic Acid (Folic Acid -) 1 mg PO DAILY [facility] Last Admin: 12/09/17 08:39 Dose: 1 mg Insulin Aspart (Novolog Vial Sliding Scale -) 1 vial SQ TIDAC [facility] PRN Reason: Protocol Last Admin: 12/09/17 06:37 Dose: Not Given Isosorbide Mononitrate (Imdur -) 30 mg PO DAILY [facility] Last Admin: 12/09/17 08:39 Dose: 30 mg Losartan Potassium (Cozaar -) 50 mg PO DAILY [facility] Last Admin: 12/09/17 08:38 Dose: 50 mg Metoprolol Succinate (Toprol Xl -) 100 mg PO DAILY [facility] Last Admin: 12/09/17 08:39 Dose: 100 mg Pantoprazole Sodium (Protonix -) 40 mg PO DAILY [facility] Last Admin: 12/09/17 08:39 Dose: 40 mg Tamsulosin HCl (Flomax -) 0.4 mg PO DAILY@0830 [facility] Last Admin: 12/09/17 08:39 Dose: 0.4 mg - Objective Vital Signs: Vital Signs Temperature 98.3 F 12/09/17 08:26 Pulse Rate 69 12/09/17 08:26 Respiratory Rate 18 12/09/17 08:26 Blood Pressure 154/92 12/09/17 08:26 O2 Sat by Pulse Oximetry (%) 97 12/09/17 00:00 Cardiovascular: Yes: Regular Rate and Rhythm Respiratory: Yes: Regular, CTA Bilaterally Gastrointestinal: Yes: Normal Bowel Sounds, Soft. No: Tenderness Edema: RLE: 1+ Labs: CBC, BMP 12/08/17 01:15 12/08/17 01:15 INR, PTT INR 1.03 (0.82-1.09) 12/08/17 01:15 Assessment/Plan - Problems (1) Uncontrolled hypertension Assessment/Plan: - Off Tele monitoring - Metoprolol given in ED- BP improved -add hydralazine 25 bid - Will continue home meds - Appreciate Cardiology Consult - Monitor renal function Code(s): I10 - ESSENTIAL (PRIMARY) HYPERTENSION (2) Headache Assessment/Plan: - Likely secondary to Hypertension vs Migraine - Head CT- neg ICH, mass or lesion - Reglan, Benadryl given in ED- ODELL resolved - Consider Neurology Consult outpatient for further work-up - Monitor vitals Code(s): R51 - HEADACHE (3) Chest pain Assessment/Plan: -r/o ACS - off Tele monitoring--cleared by cardio - HEART Score 4 - Serial Enzymes - Appreciate Cardiology consult - Asa,Metoprolol - Echo 10/13/17- lv ns, la nl, ra nl, mild-mod as, mid mr, ar ns, no pericardial effusion Code(s): R07.9 - CHEST PAIN, UNSPECIFIED Qualifiers: Chest pain type: unspecified Qualified Code(s): R07.9 - Chest pain, unspecified (4) Diabetes Assessment/Plan: - BGMs - Continue insulin pump - ISS - HgbA1c in am -endo Code(s): E11.9 - TYPE 2 DIABETES MELLITUS WITHOUT COMPLICATIONS Qualifiers: Diabetes mellitus type: type 2 Diabetes mellitus complication detail: with unspecified neuropathy (5) DVT prophylaxis Assessment/Plan: - OOB - SCDs (6) CKD Assessment/Plan: - MONITOR (7) Edema Assessment/Plan: - DUPLEX
[2017-12-09 09:25] LABS: BASO % 1.4 % (0-2.0); EOS % 4.2 % (0-4.5); HEMATOCRIT 38.8 % (35.4-49); HEMOGLOBIN 12.6 GM/dL (11.7-16.9); LYMPH % 26.7 % (8-40); MCH 27.3 pg (25.7-33.7); MCHC 32.5 g/dl (32.0-35.9); MEAN CELL VOLUME 83.8 fl (80-96); MEAN PLT VOLUME 8.6 fl (7.5-11.1); NEUT % 57.7 % (42.8-82.8); PLATELET COUNT 243 K/MM3 (134-434); RBC 4.63 M/mm3 (4.00-5.60); RDW 13.7 % (11.9-15.9); WHITE BLOOD COUNT 6.6 K/mm3 (4.0-10.0)
[2017-12-09 09:40] LABS: ANION GAP 4 (8-16); BILIRUBIN,TOTAL 0.4 mg/dL (0.2-1.0); BLOOD UREA NITROGEN 27 mg/dL (7-18); CALCIUM 8.7 mg/dL (8.5-10.1); CHLORIDE 106 mmol/L (98-107); CO2 28 mmol/L (21-32); GLUCOSE,RANDOM 157 mg/dL (74-106); POTASSIUM 4.2 mmol/L (3.5-5.1); SGOT/AST 24 U/L (15-37); SGPT/ALT 23 U/L (12-78); SODIUM 138 mmol/L (136-145)
[2017-12-09 09:44] LABS: ALK PHOS 121 U/L (45-117); TOT PROT 7.8 g/dl (6.4-8.2)
--- NOTE | 2017-12-09 09:52 | CONSULT ---
Consult - text type - Consultation Consultation Note: Neurology Chief Complaint: Headache, Elevated BP, Chest Pressure, R- leg swelling History of Present Illness: This is a 47 y/o man with a PMHx of: IDDM (Insulin Pump), HTN, Renal Insufficiency, Peripheral Neuropathy, BPH, GERD. Who presents with a frontal headache, elevated blood pressure 190's/110's x 4 days. Patient reported having chest pressure non-radiating, and right lower leg swelling x 1 day. Patient reported having headaches in the past that was relieved with Tylenol, this time it was constant with no relief. Patient reports dizziness and blurred vision associated with the ODELL. After receiving treatment in the ED- the ODELL is now resolved. Patient denies fever, chills, cough, SOB, palpitations, AP, N/V/D, constipation, dysuria. Patient denies calf pain. CT head was completed and did now show acute changes. BP being managed but patient remains with heaviness of head and feeling unsteady. Will order MRI Brain to rule out CVA and patient in agreement. Discussed with nurse. 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: Peripheral Neuropathy Cardiovascular: Yes: HTN Gastrointestinal: Yes: GERD Renal/: Yes: Renal Inusuff, BPH Infectious Disease: Yes: Other Musculoskeletal: Yes: Other (herniated discs) Endocrine: Yes: Diabetes Mellitus - Past Surgical History Past Surgical History: Yes: Laminectomy - Smoking History Smoking history: Former smoker Have you smoked in the past 12 months: No Aproximately how many cigarettes per day: 2 If you are a former smoker, when did you quit?: 14 yrs ago - Alcohol/Substance Use Hx Alcohol Use: No History of Substance Use: reports: None - Social History Usual Living Arrangement: Yes: With Spouse ADL: Independent 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 History of Recent Travel: No Home Medications - Allergies Allergies/Adverse Reactions: Allergies Allergy/AdvReac Type Severity Reaction Status Date / Time No Known Allergies Allergy Verified 11/30/17 14:17 - Home Medications Home Medications: Ambulatory Orders Aspirin Coated [Ecotrin -] 81 mg PO DAILY 12/07/17 Atorvastatin Calcium 80 mg PO HS 12/07/17 Cholecalciferol (Vitamin D3) [Vitamin D3 -] 50,000 unit PO WEEKLY 12/07/17 Dulaglutide [Trulicity] 1.5 mg SQ ASDIR 12/07/17 Folic Acid - 1 mg PO DAILY 12/07/17 Isosorbide Mononitrate [Imdur -] 30 mg PO DAILY 12/07/17 Losartan Potassium [Cozaar -] 50 mg PO DAILY 12/07/17 Metoprolol Succinate [Toprol Xl -] 100 mg PO DAILY 12/07/17 Nitroglycerin Sublingual [Nitrostat -] 0.4 mg SL PRN PRN 12/07/17 Omeprazole 40 mg PO DAILY 12/07/17 Tamsulosin HCl [Flomax] 0.4 mg PO DAILY 12/07/17 Family Disease History - Family Disease History Family Disease History: Diabetes: Grandparent Review of Systems - Review of Systems Constitutional: reports: No Symptoms Eyes: reports: Blurred Vision HENT: reports: No Symptoms Neck: reports: No Symptoms Cardiovascular: reports: Chest Pain Respiratory: reports: No Symptoms Gastrointestinal: reports: No Symptoms Genitourinary: reports: No Symptoms Breasts: reports: No Symptoms Reported Musculoskeletal: reports: Other (RLE swelling) Integumentary: reports: No Symptoms Neurological: reports: Headache Endocrine: reports: No Symptoms Hematology/Lymphatic: reports: No Symptoms Psychiatric: reports: No Symptoms Physical Examination Vital Signs Period Temp Pulse Resp BP Sys/Banuelos Pulse Ox Last 24 Hr 97.9 F-98.6 F 67-79 16-18 126-176/76-104 95-97 Constitutional: Yes: Well Nourished, No Distress, Calm, Obese Eyes: Yes: WNL, Conjunctiva Clear, EOM Intact, PERRL HENT: Yes: WNL, Atraumatic, Normocephalic Neck: Yes: WNL, Supple, Trachea Midline Cardiovascular: Yes: WNL, Regular Rate and Rhythm, S1, S2 Respiratory: Yes: WNL, Regular, CTA Bilaterally Gastrointestinal: Yes: WNL, Normal Bowel Sounds, Soft ...Rectal Exam: Yes: Deferred Renal/: Yes: WNL Breast(s): Yes: WNL Musculoskeletal: Yes: WNL Extremities: Yes: WNL Edema: Yes Edema: LLE: 1+, RLE: 1+ Peripheral Pulses WNL: Yes Integumentary: Yes: Venous Stasis Changes (bilateral legs) Neurological: Awake, alert, oriented, CN intact, strength intact, sensory normal , slight antalgic gait, finger to nose normal Labs: CBCD WBC 6.6 K/mm3 (4.0-10.0) 12/09/17 09:05 RBC 4.63 M/mm3 (4.00-5.60) 12/09/17 09:05 Hgb 12.6 GM/dL (11.7-16.9) 12/09/17 09:05 Hct 38.8 % (35.4-49) 12/09/17 09:05 MCV 83.8 fl (80-96) 12/09/17 09:05 MCHC 32.5 g/dl (32.0-35.9) 12/09/17 09:05 RDW 13.7 % (11.9-15.9) 12/09/17 09:05 Plt Count 243 K/MM3 (134-434) 12/09/17 09:05 MPV 8.6 fl (7.5-11.1) 12/09/17 09:05 CMP Sodium 138 mmol/L (136-145) 12/09/17 09:05 Potassium 4.2 mmol/L (3.5-5.1) 12/09/17 09:05 Chloride 106 mmol/L (98-107) 12/09/17 09:05 Carbon Dioxide 28 mmol/L (21-32) 12/09/17 09:05 Anion Gap 4 (8-16) L 12/09/17 09:05 BUN 27 mg/dL (7-18) H 12/09/17 09:05 Creatinine 2.0 mg/dL (0.7-1.3) H 12/09/17 09:05 Creat Clearance w eGFR 35.99 (>60) 12/09/17 09:05 Calcium 8.7 mg/dL (8.5-10.1) 12/09/17 09:05 Total Bilirubin 0.4 mg/dL (0.2-1.0) D 12/09/17 09:05 AST 24 U/L (15-37) D 12/09/17 09:05 ALT 23 U/L (12-78) 12/09/17 09:05 Alkaline Phosphatase 118 U/L (45-117) H D 12/08/17 01:15 Total Protein 7.6 g/dl (6.4-8.2) 12/08/17 01:15 Albumin 3.0 g/dl (3.4-5.0) L 12/09/17 09:05 Imaging - Results Chest X-ray: Image Reviewed Cat Scan: Report Reviewed (Head CT- neg ICH, mass or lesion), Image Reviewed Ultrasound: Report Reviewed (Duplex RLE- neg DVT), Image Reviewed Plan 47 y/o man with a PMHx of: IDDM (Insulin Pump), HTN, Renal Insufficiency, Peripheral Neuropathy, BPH, GERD. Who presents with a frontal headache, elevated blood pressure 190's/110's x 4 days. Patient reported having chest pressure non-radiating, and right lower leg swelling x 1 day. Patient reported having headaches in the past that was relieved with Tylenol, this time it was constant with no relief. Patient reports dizziness and blurred vision associated with the ODELL. CT head was completed and did now show acute changes. BP being managed but patient remains with heaviness of head and feeling unsteady. Will order MRI Brain to rule out CVA and patient in agreement. Continue aggressive blood pressure management Cardiology follow up Monitor glucose, maintain euglycemic range Can give Fioricet for headache if persists but primary objective would be to gradually bring down blood pressure
[2017-12-09] MEDS ORDERED: hydrALAZINE HCL 25 MG TABLET (FP) PO SCH (10:00)
--- NOTE | 2017-12-09 13:40 | CONSULT ---
Consult Consult Specialty:: Nephrology Reason for Consultation:: ckd and htn - History of Present Illness Chief Complaint: headache and elevated blood pressure History of Present Illness: Pt is a 47 year old male with pmhx of HTN, DM, and CKD who presents to the ER for elevated blood pressure and headache. He denies chest pain or palpitations. I was called to evaluate him for deysi and htn. He was recently taken off of hctz. He has not been compliant with his diet for the last few weeks. He denies dysuria or hematuria. He is awake and alert. His blood pressure is improving. He does have edema of his legs. 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: Peripheral Neuropathy Cardio/Vascular: Yes: HTN Gastrointestinal: Yes: GERD Renal/: Yes: Renal Inusuff, BPH Infectious Disease: Yes: Other Musculoskeletal: Yes: Other (herniated discs) Endocrine: Yes: Diabetes Mellitus - Past Surgical History Past Surgical History: Yes: Laminectomy - Alcohol/Substance Use Hx Alcohol Use: No History of Substance Use: reports: None - Smoking History Smoking history: Former smoker Have you smoked in the past 12 months: No Aproximately how many cigarettes per day: 2 If you are a former smoker, when did you quit?: 14 yrs ago - Social History Usual Living Arrangement: With Spouse ADL: Independent 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 History of Recent Travel: No Home Medications - Allergies Allergies/Adverse Reactions: Allergies Allergy/AdvReac Type Severity Reaction Status Date / Time No Known Allergies Allergy Verified 11/30/17 14:17 - Home Medications Home Medications: Ambulatory Orders Aspirin Coated [Ecotrin -] 81 mg PO DAILY 12/07/17 Atorvastatin Calcium 80 mg PO HS 12/07/17 Cholecalciferol (Vitamin D3) [Vitamin D3 -] 50,000 unit PO WEEKLY 12/07/17 Dulaglutide [Trulicity] 1.5 mg SQ ASDIR 12/07/17 Folic Acid - 1 mg PO DAILY 12/07/17 Isosorbide Mononitrate [Imdur -] 30 mg PO DAILY 12/07/17 Losartan Potassium [Cozaar -] 50 mg PO DAILY 12/07/17 Metoprolol Succinate [Toprol Xl -] 100 mg PO DAILY 12/07/17 Nitroglycerin Sublingual [Nitrostat -] 0.4 mg SL PRN PRN 12/07/17 Omeprazole 40 mg PO DAILY 12/07/17 Tamsulosin HCl [Flomax] 0.4 mg PO DAILY 12/07/17 Family Disease History - Family Disease History Family Disease History: Diabetes: Grandparent Review of Systems - Review of Systems Constitutional: reports: Malaise Eyes: reports: No Symptoms. denies: Blurred Vision, Double Vision HENT: reports: No Symptoms Neck: reports: No Symptoms Cardiovascular: reports: Edema. denies: Shortness of Breath Respiratory: reports: No Symptoms Gastrointestinal: reports: No Symptoms Genitourinary: reports: No Symptoms Musculoskeletal: reports: No Symptoms Integumentary: reports: Erythema Neurological: reports: Headache Endocrine: reports: No Symptoms Hematology/Lymphatic: reports: No Symptoms Psychiatric: reports: No Symptoms Physical Exam Vital Signs: Vital Signs Temperature 98.3 F 12/09/17 08:26 Pulse Rate 71 12/09/17 11:14 Respiratory Rate 18 12/09/17 11:14 Blood Pressure 174/103 12/09/17 11:14 O2 Sat by Pulse Oximetry (%) 97 12/09/17 00:00 Constitutional: Yes: Calm Eyes: Yes: Conjunctiva Clear HENT: Yes: Atraumatic Neck: Yes: Supple Cardiovascular: Yes: S1, S2 Respiratory: Yes: CTA Bilaterally Gastrointestinal: Yes: Soft Renal/: Yes: WNL Musculoskeletal: Yes: WNL Edema: Yes Edema: LLE: 1+, RLE: 1+ Neurological: Yes: Oriented Psychiatric: Yes: Oriented Labs: CBC, BMP 12/09/17 09:05 12/09/17 09:05 Imaging - Results Chest X-ray: Report Reviewed MRI: Report Reviewed Problem List - Problems (1) Headache Code(s): R51 - HEADACHE (2) Hypertensive emergency without congestive heart failure Code(s): I16.1 - HYPERTENSIVE EMERGENCY (3) Type 2 diabetes mellitus with hyperosmolarity without nonketotic hyperglycemic-hyperosmolar coma ([facility]) Code(s): E11.00 - TYPE 2 DIAB W HYPROSM W/O NONKET HYPRGLY-HYPROS COMA ([facility]) (4) Uncontrolled hypertension Code(s): I10 - ESSENTIAL (PRIMARY) HYPERTENSION Assessment/Plan Current Medications Generic Name Dose Route Start Last Admin Trade Name Freq PRN Reason Stop Dose Admin Acetaminophen/Butalbital/Caffeine 1 tablet 12/08/17 16:12 12/09/17 01:58 Fioricet - PO 1 tablet Q4H PRN Administration HEADACHE Aspirin 81 mg 12/08/17 10:00 12/09/17 11:09 Ecotrin - PO Not Given DAILY [place] Atorvastatin Calcium 80 mg 12/08/17 22:00 12/08/17 22:05 Lipitor - PO 80 mg HS [place] Administration Folic Acid 1 mg 12/08/17 10:00 12/09/17 11:09 Folic Acid - PO Not Given DAILY [place] Hydralazine HCl 25 mg 12/09/17 10:00 12/09/17 11:23 Apresoline - PO 25 mg BID [place] Administration Insulin Aspart 1 vial 12/08/17 07:00 12/09/17 11:35 Novolog Vial Sliding Scale - SQ 2 units TIDAC [place] Administration Protocol Isosorbide Mononitrate 30 mg 12/08/17 10:00 12/09/17 11:09 Imdur - PO Not Given DAILY [place] Losartan Potassium 50 mg 12/08/17 10:00 12/09/17 11:09 Cozaar - PO Not Given DAILY [place] Metoprolol Succinate 100 mg 12/08/17 10:00 12/09/17 11:09 Toprol Xl - PO Not Given DAILY [place] Pantoprazole Sodium 40 mg 12/08/17 10:00 12/09/17 11:09 Protonix - PO Not Given DAILY [place] Tamsulosin HCl 0.4 mg 12/08/17 08:30 12/09/17 08:39 Flomax - PO 0.4 mg DAILY@0830 [place] Administration Impression 1. CKD 2. hx Inguinal lymphadenopathy 3. DEYSI improved 4. DM 5. HTN uncontrolled 6. DFU Plan - increase hydralazine to TID - repeat labs in am - will likely restart hctz in am - cont to monitor bp - will decrease it gradually - low sodium heart health diet - will follow Dr Matthews
[2017-12-09] MEDS: hydrALAZINE HCL 25 MG TABLET (FP) PO SCH (21:12)
[2017-12-09] MEDS: ATORVASTATIN CA 80 MG TABLET (FP) PO SCH (21:12)
[2017-12-10 00:01] LABS: URINE APPEARANCE CLEAR; URINE BILIRUBIN NEGATIVE (NEGATIVE); URINE BLOOD 1+ (NEGATIVE); URINE COLOR LTYELLOW; URINE GLUCOSE (UA) 3+ (NEGATIVE); URINE KETONE NEGATIVE (NEGATIVE); URINE LEUK ESTERASE NEGATIVE (NEGATIVE); URINE NITRITE NEGATIVE (NEGATIVE); URINE UROBILINOGEN NEGATIVE mg/dL (0.2-1.0)
[2017-12-10 00:10] LABS: URINE PROTEIN 3+ (NEGATIVE)
[2017-12-10 01:06] LABS: URINE BACTERIA FEW /hpf (NONE SEEN); URINE MUCUS RARE
[2017-12-10] MEDS: ACETAMINOPHEN/CAFFEINE/BUTALBITAL 1 TAB PO PRN (02:08)
[2017-12-10] MEDS ORDERED: INSULIN (NOVOLOG) ASPART 100 UNITS/ML 10ML VIAL ONE (03:34)
[2017-12-10] MEDS: hydrALAZINE HCL 25 MG TABLET (FP) PO SCH ×3 (05:59→21:21)
[2017-12-10] MEDS: INSULIN SLIDING SCALE (NOVOLOG) 1 VIAL SQ SCH ×3 (06:05→17:34)
[2017-12-10 08:20] LABS: CHLORIDE 107 mmol/L (98-107); POTASSIUM 4.1 mmol/L (3.5-5.1); SODIUM 139 mmol/L (136-145)
[2017-12-10 08:27] LABS: ANION GAP 8 (8-16); BLOOD UREA NITROGEN 32 mg/dL (7-18); CO2 24 mmol/L (21-32); CREATININE 2.1 mg/dL (0.7-1.3); GLUCOSE,RANDOM 166 mg/dL (74-106)
[2017-12-10] MEDS: PANTOPRAZOLE 40 MG TABLET (FP) PO SCH (09:49)
[2017-12-10] MEDS: METOPROLOL SUCCINATE 100 MG TAB.SR.24H (FP) PO SCH (09:49)
[2017-12-10] MEDS: TAMSULOSIN HCL 0.4 MG CAP.ER.24H (FP) PO SCH (09:49)
[2017-12-10] MEDS: LOSARTAN POTASSIUM 50 MG TABLET (FP) PO SCH (09:49)
[2017-12-10] MEDS: ISOSORBIDE MONONITRATE 30 MG TAB.SR.24H (FP) PO SCH (09:49)
[2017-12-10] MEDS: ASPIRIN COATED 81 MG TABLET.EC PO SCH (09:49)
[2017-12-10] MEDS: FOLIC ACID 1 MG TABLET (FP) PO SCH (09:49)
--- NOTE | 2017-12-10 09:56 | PN ---
Progress Note (short form) - Note Progress Note: Neurology History of Present Illness: This is a 47 y/o man with a PMHx of: IDDM (Insulin Pump), HTN, Renal Insufficiency, Peripheral Neuropathy, BPH, GERD. Who presents with a frontal headache, elevated blood pressure 190's/110's x 4 days. Patient reported having chest pressure non-radiating, and right lower leg swelling x 1 day. Patient reported having headaches in the past that was relieved with Tylenol, this time it was constant with no relief. Patient reports dizziness and blurred vision associated with the ODELL. MRI brain completed overnight and reviewed with patient , no acute changes noted. Patient reports symptoms have improved. Active Medications Acetaminophen/Butalbital/Caffeine (Fioricet -) 1 tablet PO Q4H PRN PRN Reason: HEADACHE Last Admin: 12/10/17 02:08 Dose: 1 tablet Aspirin (Ecotrin -) 81 mg PO DAILY [facility] Last Admin: 12/10/17 09:49 Dose: 81 mg Atorvastatin Calcium (Lipitor -) 80 mg PO HS [facility] Last Admin: 12/09/17 21:12 Dose: 80 mg Folic Acid (Folic Acid -) 1 mg PO DAILY [facility] Last Admin: 12/10/17 09:49 Dose: 1 mg Hydralazine HCl (Apresoline -) 25 mg PO TID [facility] Last Admin: 12/10/17 05:59 Dose: 25 mg Insulin Aspart (Novolog Vial Sliding Scale -) 1 vial SQ TIDAC [facility] PRN Reason: Protocol Last Admin: 12/10/17 06:05 Dose: 2 units Isosorbide Mononitrate (Imdur -) 30 mg PO DAILY [facility] Last Admin: 12/10/17 09:49 Dose: 30 mg Losartan Potassium (Cozaar -) 50 mg PO DAILY [facility] Last Admin: 12/10/17 09:49 Dose: 50 mg Metoprolol Succinate (Toprol Xl -) 100 mg PO DAILY [facility] Last Admin: 12/10/17 09:49 Dose: 100 mg Pantoprazole Sodium (Protonix -) 40 mg PO DAILY [facility] Last Admin: 12/10/17 09:49 Dose: 40 mg Tamsulosin HCl (Flomax -) 0.4 mg PO DAILY@0830 [facility] Last Admin: 12/10/17 09:49 Dose: 0.4 mg Physical Examination Vital Signs Temperature 97.9 F 12/10/17 06:00 Pulse Rate 70 12/10/17 06:00 Respiratory Rate 20 12/10/17 06:00 Blood Pressure 150/76 12/10/17 06:00 O2 Sat by Pulse Oximetry (%) 97 12/09/17 16:00 Constitutional: Yes: Well Nourished, No Distress, Calm, Obese Eyes: Yes: WNL, Conjunctiva Clear, EOM Intact, PERRL HENT: Yes: WNL, Atraumatic, Normocephalic Neck: Yes: WNL, Supple, Trachea Midline Cardiovascular: Yes: WNL, Regular Rate and Rhythm, S1, S2 Respiratory: Yes: WNL, Regular, CTA Bilaterally Gastrointestinal: Yes: WNL, Normal Bowel Sounds, Soft ...Rectal Exam: Yes: Deferred Renal/: Yes: WNL Breast(s): Yes: WNL Musculoskeletal: Yes: WNL Extremities: Yes: WNL Edema: Yes Edema: LLE: 1+, RLE: 1+ Peripheral Pulses WNL: Yes Integumentary: Yes: Venous Stasis Changes (bilateral legs) Neurological: Awake, alert, oriented, CN intact, strength intact, sensory normal , gait normal, finger to nose normal Labs: CBCD WBC 6.6 K/mm3 (4.0-10.0) 12/09/17 09:05 RBC 4.63 M/mm3 (4.00-5.60) 12/09/17 09:05 Hgb 12.6 GM/dL (11.7-16.9) 12/09/17 09:05 Hct 38.8 % (35.4-49) 12/09/17 09:05 MCV 83.8 fl (80-96) 12/09/17 09:05 MCHC 32.5 g/dl (32.0-35.9) 12/09/17 09:05 RDW 13.7 % (11.9-15.9) 12/09/17 09:05 Plt Count 243 K/MM3 (134-434) 12/09/17 09:05 MPV 8.6 fl (7.5-11.1) 12/09/17 09:05 CMP Sodium 139 mmol/L (136-145) 12/10/17 06:30 Potassium 4.1 mmol/L (3.5-5.1) 12/10/17 06:30 Chloride 107 mmol/L (98-107) 12/10/17 06:30 Carbon Dioxide 24 mmol/L (21-32) 12/10/17 06:30 Anion Gap 8 (8-16) 12/10/17 06:30 BUN 32 mg/dL (7-18) H 12/10/17 06:30 Creatinine 2.1 mg/dL (0.7-1.3) H 12/10/17 06:30 Creat Clearance w eGFR 35.99 (>60) 12/09/17 09:05 Calcium 8.0 mg/dL (8.5-10.1) L 12/10/17 06:30 Total Bilirubin 0.4 mg/dL (0.2-1.0) D 12/09/17 09:05 AST 24 U/L (15-37) D 12/09/17 09:05 ALT 23 U/L (12-78) 12/09/17 09:05 Alkaline Phosphatase 121 U/L (45-117) H 12/09/17 09:05 Total Protein 7.8 g/dl (6.4-8.2) 12/09/17 09:05 Albumin 3.0 g/dl (3.4-5.0) L 12/09/17 09:05 Imaging - Results Chest X-ray: Image Reviewed Cat Scan: Report Reviewed (Head CT- neg ICH, mass or lesion), Image Reviewed Ultrasound: Report Reviewed (Duplex RLE- neg DVT), Image Reviewed MRI brain reviewed Plan 47 y/o man with a PMHx of: IDDM (Insulin Pump), HTN, Renal Insufficiency, Peripheral Neuropathy, BPH, GERD. Who presents with a frontal headache, elevated blood pressure 190's/110's x 4 days. Patient reported having chest pressure non-radiating, and right lower leg swelling x 1 day. Patient reported having headaches in the past that was relieved with Tylenol, this time it was constant with no relief. Patient reports dizziness and blurred vision associated with the ODELL. CT head was completed and did now show acute changes. MRI brain reviewed and without acute changes Continue aggressive blood pressure management Cardiology follow up Monitor glucose, maintain euglycemic range Can give Fioricet for headache if persists but primary objective would be to gradually bring down blood pressure Outpatient follow up information provided Patient stable at this time
--- NOTE | 2017-12-10 11:09 | DS ---
Physical Examination Vital Signs: Vital Signs Temperature 97.9 F 12/10/17 06:00 Pulse Rate 70 12/10/17 06:00 Respiratory Rate 20 12/10/17 06:00 Blood Pressure 150/76 12/10/17 06:00 O2 Sat by Pulse Oximetry (%) 97 12/09/17 16:00 no chest pain no sob in bed comfortable Constitutional: Yes: Calm Neck: Yes: Trachea Midline Cardiovascular: Yes: Regular Rate and Rhythm, S1, S2 Respiratory: Yes: CTA Bilaterally Gastrointestinal: Yes: Soft Edema: Yes Neurological: Yes: Alert, Oriented Labs: CBC, BMP 12/09/17 09:05 12/10/17 06:30 Discharge Summary Reason For Visit: HYPERTENSIVE AMERGENCY ELEVATED TROPONIN Current Active Problems DVT prophylaxis (Acute) Elevated troponin (Acute) Headache (Acute) Hypertensive emergency without congestive heart failure (Acute) Type 2 diabetes mellitus with hyperosmolarity without nonketotic hyperglycemic- hyperosmolar coma ([facility]) (Acute) Uncontrolled hypertension (Acute) Hospital Course: 47 y/o man with a PMHx of: IDDM (Insulin Pump), HTN, Renal Insufficiency, Peripheral Neuropathy, BPH, GERD. Who presents with a frontal headache, elevated blood pressure 190's/110's x 4 days. Patient reported having chest pressure non-radiating, and right lower leg swelling x 1 day. Patient reported having headaches in the past that was relieved with Tylenol, this time it was constant with no relief. Patient reports dizziness and blurred vision associated with the ODELL. elevated troponin and was admitted to tele observation CT head was completed and did now show acute changes. MRI brain reviewed and without acute changes time seen by endocrine on insulin pump seen by cardiology, ECHO done no wall motion abnormalities, normal ejection fraction seen by renal and started on hydralazine 25mg po TID Condition: Fair - Instructions Diet, Activity, Other Instructions: FU with PMD in one month FU with Dr matthews in one week Referrals: Mk Dean MD [Primary Care Provider] - Tripp Matthews MD [Staff Physician] - Disposition: HOME - Home Medications Comprehensive Discharge Medication List: Ambulatory Orders Aspirin Coated [Ecotrin -] 81 mg PO DAILY 12/07/17 Atorvastatin Calcium 80 mg PO HS 12/07/17 Cholecalciferol (Vitamin D3) [Vitamin D3 -] 50,000 unit PO WEEKLY 12/07/17 Dulaglutide [Trulicity] 1.5 mg SQ ASDIR 12/07/17 Folic Acid - 1 mg PO DAILY 12/07/17 Isosorbide Mononitrate [Imdur -] 30 mg PO DAILY 12/07/17 Losartan Potassium [Cozaar -] 50 mg PO DAILY 12/07/17 Metoprolol Succinate [Toprol Xl -] 100 mg PO DAILY 12/07/17 Nitroglycerin Sublingual [Nitrostat -] 0.4 mg SL PRN PRN 12/07/17 Omeprazole 40 mg PO DAILY 12/07/17 Tamsulosin HCl [Flomax] 0.4 mg PO DAILY 12/07/17
--- NOTE | 2017-12-10 12:53 | PN ---
Progress Note (short form) - Note Progress Note: will cancel discharge patient BP still elevated will increase hydralazine cannot restart hctz given his increase creatinine
--- NOTE | 2017-12-10 14:57 | PN ---
Progress Note, Physician History of Present Illness: Pt seen and examined at bedside. He is awake and alert. He denies shortness of breath. He has some lower ext edema. - Current Medication List Current Medications: Active Medications Acetaminophen/Butalbital/Caffeine (Fioricet -) 1 tablet PO Q4H PRN PRN Reason: HEADACHE Last Admin: 12/10/17 02:08 Dose: 1 tablet Aspirin (Ecotrin -) 81 mg PO DAILY [facility] Last Admin: 12/10/17 09:49 Dose: 81 mg Atorvastatin Calcium (Lipitor -) 80 mg PO HS [facility] Last Admin: 12/09/17 21:12 Dose: 80 mg Folic Acid (Folic Acid -) 1 mg PO DAILY [facility] Last Admin: 12/10/17 09:49 Dose: 1 mg Hydralazine HCl (Apresoline -) 25 mg PO TID [facility] Last Admin: 12/10/17 05:59 Dose: 25 mg Insulin Aspart (Novolog Vial Sliding Scale -) 1 vial SQ TIDAC [facility] PRN Reason: Protocol Last Admin: 12/10/17 12:20 Dose: 14 units Isosorbide Mononitrate (Imdur -) 30 mg PO DAILY [facility] Last Admin: 12/10/17 09:49 Dose: 30 mg Losartan Potassium (Cozaar -) 50 mg PO DAILY [facility] Last Admin: 12/10/17 09:49 Dose: 50 mg Metoprolol Succinate (Toprol Xl -) 100 mg PO DAILY [facility] Last Admin: 12/10/17 09:49 Dose: 100 mg Pantoprazole Sodium (Protonix -) 40 mg PO DAILY [facility] Last Admin: 12/10/17 09:49 Dose: 40 mg Tamsulosin HCl (Flomax -) 0.4 mg PO DAILY@0830 [facility] Last Admin: 12/10/17 09:49 Dose: 0.4 mg - Objective Vital Signs: Vital Signs Temperature 98.0 F 12/10/17 14:06 Pulse Rate 72 12/10/17 14:06 Respiratory Rate 16 12/10/17 14:06 Blood Pressure 141/78 12/10/17 14:06 O2 Sat by Pulse Oximetry (%) 97 12/09/17 16:00 Constitutional: Yes: Calm Eyes: Yes: Conjunctiva Clear HENT: Yes: Atraumatic Neck: Yes: Supple Cardiovascular: Yes: S1, S2 Respiratory: Yes: CTA Bilaterally Gastrointestinal: Yes: Soft Genitourinary: Yes: WNL Musculoskeletal: Yes: WNL Edema: Yes Edema: LLE: Trace, RLE: Trace Neurological: Yes: Oriented Psychiatric: Yes: Oriented Labs: CBC, BMP 12/09/17 09:05 12/10/17 06:30 INR, PTT INR 1.03 (0.82-1.09) 12/08/17 01:15 Problem List - Problems (1) Headache Code(s): R51 - HEADACHE (2) Hypertensive emergency without congestive heart failure Code(s): I16.1 - HYPERTENSIVE EMERGENCY (3) Type 2 diabetes mellitus with hyperosmolarity without nonketotic hyperglycemic-hyperosmolar coma ([facility]) Code(s): E11.00 - TYPE 2 DIAB W HYPROSM W/O NONKET HYPRGLY-HYPROS COMA ([facility]) (4) Uncontrolled hypertension Code(s): I10 - ESSENTIAL (PRIMARY) HYPERTENSION Assessment/Plan Current Medications Generic Name Dose Route Start Last Admin Trade Name Freq PRN Reason Stop Dose Admin Acetaminophen/Butalbital/Caffeine 1 tablet 12/08/17 16:12 12/10/17 02:08 Fioricet - PO 1 tablet Q4H PRN Administration HEADACHE Aspirin 81 mg 12/08/17 10:00 12/10/17 09:49 Ecotrin - PO 81 mg DAILY [facility] Administration Atorvastatin Calcium 80 mg 12/08/17 22:00 12/09/17 21:12 Lipitor - PO 80 mg HS [facility] Administration Folic Acid 1 mg 12/08/17 10:00 12/10/17 09:49 Folic Acid - PO 1 mg DAILY [facility] Administration Hydralazine HCl 25 mg 12/09/17 22:00 12/10/17 05:59 Apresoline - PO 25 mg TID [facility] Administration Insulin Aspart 1 vial 12/08/17 07:00 12/10/17 12:20 Novolog Vial Sliding Scale - SQ 14 units TIDAC [facility] Administration Protocol Isosorbide Mononitrate 30 mg 12/08/17 10:00 12/10/17 09:49 Imdur - PO 30 mg DAILY [facility] Administration Losartan Potassium 50 mg 12/08/17 10:00 12/10/17 09:49 Cozaar - PO 50 mg DAILY [facility] Administration Metoprolol Succinate 100 mg 12/08/17 10:00 12/10/17 09:49 Toprol Xl - PO 100 mg DAILY [facility] Administration Pantoprazole Sodium 40 mg 12/08/17 10:00 12/10/17 09:49 Protonix - PO 40 mg DAILY [facility] Administration Tamsulosin HCl 0.4 mg 12/08/17 08:30 12/10/17 09:49 Flomax - PO 0.4 mg DAILY@0830 [facility] Administration Impression 1. CKD 2. hx Inguinal lymphadenopathy 3. DEYSI improved 4. DM 5. HTN uncontrolled 6. DFU Plan - monitor bp - can restart hctz - repeat labs in am - will need close outpt follow up - discussed with medical attending - low sodium heart health diet - will follow Dr Matthews
[2017-12-10] MEDS: CHLORTHALIDONE 25 MG TABLET PO SCH (15:36)
[2017-12-10] MEDS: ATORVASTATIN CA 80 MG TABLET (FP) PO SCH (21:21)
[2017-12-11] MEDS: hydrALAZINE HCL 25 MG TABLET (FP) PO SCH ×2 (05:57→13:01)
[2017-12-11] MEDS: INSULIN SLIDING SCALE (NOVOLOG) 1 VIAL SQ SCH ×2 (06:06→13:01)
[2017-12-11] MEDS: ACETAMINOPHEN/CAFFEINE/BUTALBITAL 1 TAB PO PRN (07:05)
[2017-12-11 07:59] VITALS: PULSE 71; TEMP 98.1
[2017-12-11] MEDS: TAMSULOSIN HCL 0.4 MG CAP.ER.24H (FP) PO SCH (08:39)
[2017-12-11 09:22] LABS: ANION GAP 6 (8-16); BLOOD UREA NITROGEN 32 mg/dL (7-18); CALCIUM 8.3 mg/dL (8.5-10.1); CHLORIDE 106 mmol/L (98-107); CO2 28 mmol/L (21-32); GLUCOSE,RANDOM 114 mg/dL (74-106); POTASSIUM 4.2 mmol/L (3.5-5.1); SGPT/ALT 19 U/L (12-78); SODIUM 140 mmol/L (136-145)
[2017-12-11 09:25] LABS: ALK PHOS 109 U/L (45-117); BILIRUBIN,TOTAL 0.4 mg/dL (0.2-1.0); CREATININE 2.2 mg/dL (0.7-1.3); SGOT/AST 18 U/L (15-37); TOT PROT 7.3 g/dl (6.4-8.2)
--- NOTE | 2017-12-11 09:39 | PN ---
Progress Note (short form) - Note Progress Note: Neurology History of Present Illness: This is a 47 y/o man with a PMHx of: IDDM (Insulin Pump), HTN, Renal Insufficiency, Peripheral Neuropathy, BPH, GERD. Who presents with a frontal headache, elevated blood pressure 190's/110's x 4 days. Patient reported having chest pressure non-radiating, and right lower leg swelling x 1 day. Patient reported having headaches in the past that was relieved with Tylenol, this time it was constant with no relief. Patient reports dizziness and blurred vision associated with the ODELL. MRI brain completed overnight and reviewed with patient , no acute changes noted. Patient reports symptoms have improved. His BP was elevated yesterday and thus was not able to be sent home. ALso Cr increased to HCTZ was not able to be increased. Possibly for d/c today if BP stable. Active Medications Acetaminophen/Butalbital/Caffeine (Fioricet -) 1 tablet PO Q4H PRN PRN Reason: HEADACHE Last Admin: 12/11/17 07:05 Dose: 1 tablet Aspirin (Ecotrin -) 81 mg PO DAILY [facility] Last Admin: 12/10/17 09:49 Dose: 81 mg Atorvastatin Calcium (Lipitor -) 80 mg PO HS [facility] Last Admin: 12/10/17 21:21 Dose: 80 mg Chlorthalidone (Hygroton -) 25 mg PO DAILY [facility] Last Admin: 12/10/17 15:36 Dose: 25 mg Folic Acid (Folic Acid -) 1 mg PO DAILY [facility] Last Admin: 12/10/17 09:49 Dose: 1 mg Hydralazine HCl (Apresoline -) 25 mg PO TID [facility] Last Admin: 12/11/17 05:57 Dose: 25 mg Insulin Aspart (Novolog Vial Sliding Scale -) 1 vial SQ TIDAC [facility] PRN Reason: Protocol Last Admin: 12/11/17 06:06 Dose: Not Given Isosorbide Mononitrate (Imdur -) 30 mg PO DAILY [facility] Last Admin: 12/10/17 09:49 Dose: 30 mg Losartan Potassium (Cozaar -) 50 mg PO DAILY [facility] Last Admin: 12/10/17 09:49 Dose: 50 mg Metoprolol Succinate (Toprol Xl -) 100 mg PO DAILY [facility] Last Admin: 12/10/17 09:49 Dose: 100 mg Pantoprazole Sodium (Protonix -) 40 mg PO DAILY [facility] Last Admin: 12/10/17 09:49 Dose: 40 mg Tamsulosin HCl (Flomax -) 0.4 mg PO DAILY@0830 [facility] Last Admin: 12/11/17 08:39 Dose: 0.4 mg Physical Examination Vital Signs Temperature 98.1 F 12/11/17 06:00 Pulse Rate 71 12/11/17 06:00 Respiratory Rate 20 12/11/17 06:00 Blood Pressure 155/84 12/11/17 06:00 O2 Sat by Pulse Oximetry (%) 97 12/09/17 16:00 Constitutional: Yes: Well Nourished, No Distress, Calm, Obese Eyes: Yes: WNL, Conjunctiva Clear, EOM Intact, PERRL HENT: Yes: WNL, Atraumatic, Normocephalic Neck: Yes: WNL, Supple, Trachea Midline Cardiovascular: Yes: WNL, Regular Rate and Rhythm, S1, S2 Respiratory: Yes: WNL, Regular, CTA Bilaterally Gastrointestinal: Yes: WNL, Normal Bowel Sounds, Soft ...Rectal Exam: Yes: Deferred Renal/: Yes: WNL Breast(s): Yes: WNL Musculoskeletal: Yes: WNL Extremities: Yes: WNL Edema: Yes Edema: LLE: 1+, RLE: 1+ Peripheral Pulses WNL: Yes Integumentary: Yes: Venous Stasis Changes (bilateral legs) Neurological: Awake, alert, oriented, CN intact, strength intact, sensory normal , gait normal, finger to nose normal Labs: CBCD WBC 6.6 K/mm3 (4.0-10.0) 12/09/17 09:05 RBC 4.63 M/mm3 (4.00-5.60) 12/09/17 09:05 Hgb 12.6 GM/dL (11.7-16.9) 12/09/17 09:05 Hct 38.8 % (35.4-49) 12/09/17 09:05 MCV 83.8 fl (80-96) 12/09/17 09:05 MCHC 32.5 g/dl (32.0-35.9) 12/09/17 09:05 RDW 13.7 % (11.9-15.9) 12/09/17 09:05 Plt Count 243 K/MM3 (134-434) 12/09/17 09:05 MPV 8.6 fl (7.5-11.1) 12/09/17 09:05 CMP Sodium 139 mmol/L (136-145) 12/10/17 06:30 Potassium 4.1 mmol/L (3.5-5.1) 12/10/17 06:30 Chloride 107 mmol/L (98-107) 12/10/17 06:30 Carbon Dioxide 24 mmol/L (21-32) 12/10/17 06:30 Anion Gap 8 (8-16) 12/10/17 06:30 BUN 32 mg/dL (7-18) H 12/10/17 06:30 Creatinine 2.1 mg/dL (0.7-1.3) H 12/10/17 06:30 Creat Clearance w eGFR 35.99 (>60) 12/09/17 09:05 Calcium 8.0 mg/dL (8.5-10.1) L 12/10/17 06:30 Total Bilirubin 0.4 mg/dL (0.2-1.0) D 12/09/17 09:05 AST 24 U/L (15-37) D 12/09/17 09:05 ALT 23 U/L (12-78) 12/09/17 09:05 Alkaline Phosphatase 121 U/L (45-117) H 12/09/17 09:05 Total Protein 7.8 g/dl (6.4-8.2) 12/09/17 09:05 Albumin 3.0 g/dl (3.4-5.0) L 12/09/17 09:05 Imaging - Results Chest X-ray: Image Reviewed Cat Scan: Report Reviewed (Head CT- neg ICH, mass or lesion), Image Reviewed Ultrasound: Report Reviewed (Duplex RLE- neg DVT), Image Reviewed MRI brain reviewed Plan 47 y/o man with a PMHx of: IDDM (Insulin Pump), HTN, Renal Insufficiency, Peripheral Neuropathy, BPH, GERD. Who presents with a frontal headache, elevated blood pressure 190's/110's x 4 days. Patient reported having chest pressure non-radiating, and right lower leg swelling x 1 day. Patient reported having headaches in the past that was relieved with Tylenol, this time it was constant with no relief. Patient reports dizziness and blurred vision associated with the ODELL. CT head was completed and did now show acute changes. MRI brain reviewed and without acute changes Continue aggressive blood pressure management Cardiology follow up Monitor glucose, maintain euglycemic range Can give Fioricet for headache if persists but primary objective would be to gradually bring down blood pressure Outpatient follow up information provided Patient stable at this time FOr d/c when bp normalized Follow up renal rec'd for Cr
[2017-12-11] MEDS ORDERED: PT OWN MED DRAWER 7, Y5N ONE (10:06)
[2017-12-11] MEDS: CHLORTHALIDONE 25 MG TABLET PO SCH (10:08)
[2017-12-11] MEDS: PANTOPRAZOLE 40 MG TABLET (FP) PO SCH (10:08)
[2017-12-11] MEDS: ISOSORBIDE MONONITRATE 30 MG TAB.SR.24H (FP) PO SCH (10:08)
[2017-12-11] MEDS: ASPIRIN COATED 81 MG TABLET.EC PO SCH (10:08)
[2017-12-11] MEDS: METOPROLOL SUCCINATE 100 MG TAB.SR.24H (FP) PO SCH (10:08)
[2017-12-11] MEDS: LOSARTAN POTASSIUM 50 MG TABLET (FP) PO SCH (10:08)
[2017-12-11] MEDS: FOLIC ACID 1 MG TABLET (FP) PO SCH (10:08)
--- NOTE | 2017-12-11 10:14 | PN ---
Progress Note, Physician Chief Complaint: patient feeling better today wants to go home started on chlorthalidone yesterday - Current Medication List Current Medications: Active Medications Acetaminophen/Butalbital/Caffeine (Fioricet -) 1 tablet PO Q4H PRN PRN Reason: HEADACHE Last Admin: 12/11/17 07:05 Dose: 1 tablet Aspirin (Ecotrin -) 81 mg PO DAILY [facility] Last Admin: 12/11/17 10:08 Dose: 81 mg Atorvastatin Calcium (Lipitor -) 80 mg PO HS [facility] Last Admin: 12/10/17 21:21 Dose: 80 mg Chlorthalidone (Hygroton -) 25 mg PO DAILY [facility] Last Admin: 12/11/17 10:08 Dose: 25 mg Folic Acid (Folic Acid -) 1 mg PO DAILY [facility] Last Admin: 12/11/17 10:08 Dose: 1 mg Hydralazine HCl (Apresoline -) 25 mg PO TID [facility] Last Admin: 12/11/17 05:57 Dose: 25 mg Insulin Aspart (Novolog Vial Sliding Scale -) 1 vial SQ TIDAC [facility] PRN Reason: Protocol Last Admin: 12/11/17 06:06 Dose: Not Given Isosorbide Mononitrate (Imdur -) 30 mg PO DAILY [facility] Last Admin: 12/11/17 10:08 Dose: 30 mg Losartan Potassium (Cozaar -) 50 mg PO DAILY [facility] Last Admin: 12/11/17 10:08 Dose: 50 mg Metoprolol Succinate (Toprol Xl -) 100 mg PO DAILY [facility] Last Admin: 12/11/17 10:08 Dose: 100 mg Pantoprazole Sodium (Protonix -) 40 mg PO DAILY [facility] Last Admin: 12/11/17 10:08 Dose: 40 mg Tamsulosin HCl (Flomax -) 0.4 mg PO DAILY@0830 [facility] Last Admin: 12/11/17 08:39 Dose: 0.4 mg - Objective Vital Signs: Vital Signs Temperature 98.1 F 12/11/17 06:00 Pulse Rate 71 12/11/17 06:00 Respiratory Rate 20 12/11/17 06:00 Blood Pressure 155/84 12/11/17 06:00 O2 Sat by Pulse Oximetry (%) 97 12/09/17 16:00 Constitutional: Yes: Calm Cardiovascular: Yes: Regular Rate and Rhythm, S1, S2 Respiratory: Yes: CTA Bilaterally Gastrointestinal: Yes: Normal Bowel Sounds, Soft Neurological: Yes: Alert, Oriented Labs: CBC, BMP 12/09/17 09:05 12/11/17 09:05 INR, PTT INR 1.03 (0.82-1.09) 12/08/17 01:15 Problem List - Problems (1) Headache Assessment/Plan: neurology on board fiorcet prn as needed headache improved Code(s): R51 - HEADACHE (2) Uncontrolled hypertension Assessment/Plan: BP is better today started on chlorthalidone will DC patient today if ok with renal Code(s): I10 - ESSENTIAL (PRIMARY) HYPERTENSION (3) Renal insufficiency Assessment/Plan: Follow up with renal as outpatient to monitor Cr Code(s): N28.9 - DISORDER OF KIDNEY AND URETER, UNSPECIFIED Assessment/Plan dc today if ok with renal
--- NOTE | 2017-12-11 12:58 | PN ---
Progress Note (short form) - Note Progress Note: spoke to renal - patient ok to go home scripts sent in Problem List - Problems (1) Headache Code(s): R51 - HEADACHE (2) Uncontrolled hypertension Code(s): I10 - ESSENTIAL (PRIMARY) HYPERTENSION (3) Renal insufficiency Code(s): N28.9 - DISORDER OF KIDNEY AND URETER, UNSPECIFIED
--- NOTE | 2017-12-11 13:05 | PN ---
Progress Note, Physician History of Present Illness: Pt seen and examined at bedside. He is awake and alert. He denies headache. He is eager to go home. - Current Medication List Current Medications: Active Medications Acetaminophen/Butalbital/Caffeine (Fioricet -) 1 tablet PO Q4H PRN PRN Reason: HEADACHE Last Admin: 12/11/17 07:05 Dose: 1 tablet Aspirin (Ecotrin -) 81 mg PO DAILY [facility] Last Admin: 12/11/17 10:08 Dose: 81 mg Atorvastatin Calcium (Lipitor -) 80 mg PO HS [facility] Last Admin: 12/10/17 21:21 Dose: 80 mg Chlorthalidone (Hygroton -) 25 mg PO DAILY [facility] Last Admin: 12/11/17 10:08 Dose: 25 mg Folic Acid (Folic Acid -) 1 mg PO DAILY [facility] Last Admin: 12/11/17 10:08 Dose: 1 mg Hydralazine HCl (Apresoline -) 25 mg PO TID [facility] Last Admin: 12/11/17 13:01 Dose: 25 mg Insulin Aspart (Novolog Vial Sliding Scale -) 1 vial SQ TIDAC [facility] PRN Reason: Protocol Last Admin: 12/11/17 13:01 Dose: 2 units Isosorbide Mononitrate (Imdur -) 30 mg PO DAILY [facility] Last Admin: 12/11/17 10:08 Dose: 30 mg Losartan Potassium (Cozaar -) 50 mg PO DAILY [facility] Last Admin: 12/11/17 10:08 Dose: 50 mg Metoprolol Succinate (Toprol Xl -) 100 mg PO DAILY [facility] Last Admin: 12/11/17 10:08 Dose: 100 mg Pantoprazole Sodium (Protonix -) 40 mg PO DAILY [facility] Last Admin: 12/11/17 10:08 Dose: 40 mg Tamsulosin HCl (Flomax -) 0.4 mg PO DAILY@0830 [facility] Last Admin: 12/11/17 08:39 Dose: 0.4 mg - Objective Vital Signs: Vital Signs Temperature 98.1 F 12/11/17 06:00 Pulse Rate 71 12/11/17 06:00 Respiratory Rate 20 12/11/17 06:00 Blood Pressure 155/84 12/11/17 06:00 O2 Sat by Pulse Oximetry (%) 97 12/09/17 16:00 Constitutional: Yes: Calm Eyes: Yes: Conjunctiva Clear HENT: Yes: Atraumatic Neck: Yes: Supple Cardiovascular: Yes: S1, S2 Respiratory: Yes: CTA Bilaterally Gastrointestinal: Yes: Normal Bowel Sounds, Soft Genitourinary: Yes: WNL Breast(s): Yes: WNL Edema: Yes Edema: LLE: Trace, RLE: Trace Neurological: Yes: Oriented Psychiatric: Yes: Oriented Labs: CBC, BMP 12/09/17 09:05 12/11/17 09:05 INR, PTT INR 1.03 (0.82-1.09) 12/08/17 01:15 Problem List - Problems (1) Headache Code(s): R51 - HEADACHE (2) Hypertensive emergency without congestive heart failure Code(s): I16.1 - HYPERTENSIVE EMERGENCY (3) Type 2 diabetes mellitus with hyperosmolarity without nonketotic hyperglycemic-hyperosmolar coma ([facility]) Code(s): E11.00 - TYPE 2 DIAB W HYPROSM W/O NONKET HYPRGLY-HYPROS COMA ([facility]) (4) Uncontrolled hypertension Code(s): I10 - ESSENTIAL (PRIMARY) HYPERTENSION Assessment/Plan Current Medications Generic Name Dose Route Start Last Admin Trade Name Freq PRN Reason Stop Dose Admin Acetaminophen/Butalbital/Caffeine 1 tablet 12/08/17 16:12 12/11/17 07:05 Fioricet - PO 1 tablet Q4H PRN Administration HEADACHE Aspirin 81 mg 12/08/17 10:00 12/11/17 10:08 Ecotrin - PO 81 mg DAILY [facility] Administration Atorvastatin Calcium 80 mg 12/08/17 22:00 12/10/17 21:21 Lipitor - PO 80 mg HS [facility] Administration Chlorthalidone 25 mg 12/10/17 15:30 12/11/17 10:08 Hygroton - PO 25 mg DAILY [facility] Administration Folic Acid 1 mg 12/08/17 10:00 12/11/17 10:08 Folic Acid - PO 1 mg DAILY [facility] Administration Hydralazine HCl 25 mg 12/09/17 22:00 12/11/17 13:01 Apresoline - PO 25 mg TID [facility] Administration Insulin Aspart 1 vial 12/08/17 07:00 12/11/17 13:01 Novolog Vial Sliding Scale - SQ 2 units TIDAC [facility] Administration Protocol Isosorbide Mononitrate 30 mg 12/08/17 10:00 12/11/17 10:08 Imdur - PO 30 mg DAILY [facility] Administration Losartan Potassium 50 mg 12/08/17 10:00 12/11/17 10:08 Cozaar - PO 50 mg DAILY [facility] Administration Metoprolol Succinate 100 mg 12/08/17 10:00 12/11/17 10:08 Toprol Xl - PO 100 mg DAILY [facility] Administration Pantoprazole Sodium 40 mg 12/08/17 10:00 12/11/17 10:08 Protonix - PO 40 mg DAILY [facility] Administration Tamsulosin HCl 0.4 mg 12/08/17 08:30 12/11/17 08:39 Flomax - PO 0.4 mg DAILY@0830 [facility] Administration Impression 1. CKD 2. hx Inguinal lymphadenopathy 3. BPH 4. DM 5. HTN uncontrolled 6. DFU Plan - renal function at baseline - bp is improved - pt can follow with us in the office on Thursday - discussed with medical attending - low sodium heart health diet - will follow Dr Matthews
[2017-12-11 13:09] VITALS: BP 153/90
== END 2017-12-11 13:43 | disposition home or self-care (01) | DRG 199 ==
LOC: JER 23:06 → JERBED 12-08 03:04 → J8W 12-09 00:32 → OBSVTOIN 12-09 08:26
PROVIDERS: ADMIT Family Medicine; ATTEND Family Medicine
DX: I16.0 Hypertensive urgency (principal); E11.42 Type 2 diabetes mellitus with diabetic polyneuropathy; Z79.4 Long term (current) use of insulin; N40.0 Benign prostatic hyperplasia without lower urinary tract symptoms; K21.9 Gastro-esophageal reflux disease without esophagitis; R51 Headache; R07.89 Other chest pain; R74.8 Abnormal levels of other serum enzymes; I12.9 Hypertensive chronic kidney disease with stage 1 through stage 4 chronic kidney disease, or unspecified chronic kidney disease; E11.22 Type 2 diabetes mellitus with diabetic chronic kidney disease; N18.4 Chronic kidney disease, stage 4 (severe); E11.00 Type 2 diabetes mellitus with hyperosmolarity without nonketotic hyperglycemic-hyperosmolar coma (NKHHC); N17.9 Acute kidney failure, unspecified; E66.8 Other obesity; Z68.35 Body mass index [BMI] 35.0-35.9, adult
CPT/HCPCS: 36415; 70450-TC; 70551-TC; 71045-TC; 80048; 80053; 80061; 81003; 81015; 82550; 82553; 82962; 83036; 83721; 83735; 84100; 84484; 85025; 85610; 93005; 93010; 93306-TC; 93971-TC; 99285-25; G0378

== ENCOUNTER 2019-10-30 17:59 | Inpatient (IN) | payer OTHER ==
[2019-10-30] MEDS ORDERED: KETOROLAC TROMETHAMINE 30 MG/1 ML VIAL IVPUSH ONE (18:28)
--- NOTE | 2019-10-30 18:38 | PDOC ---
History of Present Illness - General Chief Complaint: Pain Stated Complaint: FOOT INFECTION Time Seen by Provider: 10/30/19 18:29 History Source: Patient Exam Limitations: No Limitations - History of Present Illness Initial Comments: 10/30/19 18:30 This is a 49 y/o male with history of type 1 DM, HTN, BPH, herniated disc, GERD , renal insufficiency, foot ulcers with Hyperbaric treatments, laminectomy here with complaint of bilateral foot pain. States he had started to have pain to the left foot 3 days ago and then the right foot started today. States he had a callus on the left hallux and heel which he unroofed and now the hallux has a serosanguineous drainage but with pain and redness to the left foot. Pain he describes as sharp stabbing 1010 with no relief from naproxen which he took 3 days ago. States he felt like he had a low-grade temperature at home but when he took his temperature it was 98.6. Also complains of right foot pain on the plantar aspect which started today. States his noticed that there was a foul odor coming from the wound. Describes the pain as a pressure 5/10. In reference to the right foot wound he has had for about 4 years. He has been seen podiatry last visit was 4 months ago. However since he has had a problem with his insurance he has not been able to follow with podiatry. He reports cleaning and dressing the wounds at home without incident. Patient denies cough , SOB, CP, palpitations, N/V/D, constipation, dysuria. PMD: Dr. Dean PMHX: As above PSOCHX: Neg cig, etoh, drug ALL: NKDA GENERAL/CONSTITUTIONAL: [No fever or chills. No weakness. No weight change.] HEAD, EYES, EARS, NOSE AND THROAT: [No change in vision. No ear pain or discharge. No sore throat.] CARDIOVASCULAR: [No chest pain or shortness of breath.] RESPIRATORY: [No cough, wheezing, or hemoptysis.] GASTROINTESTINAL: [No nausea, vomiting, diarrhea or constipation. No rectal bleeding.] GENITOURINARY: [No dysuria, frequency, or change in urination.] MUSCULOSKELETAL: [No joint or muscle swelling or pain. No neck or back pain.] SKIN AND BREASTS: [No rash or easy bruising.] NEUROLOGIC: [No headache, vertigo, loss of consciousness, or loss of sensation.] PSYCHIATRIC: [No depression or anxiety.] ENDOCRINE: [No increased thirst. No abnormal weight change.] HEMATOLOGIC/LYMPHATIC: [No anemia, easy bleeding, or history of blood clots.] ALLERGIC/IMMUNOLOGIC: [No hives or skin allergy. No latex allergy.] GENERAL: [The patient is awake, alert, and fully oriented, in moderate painful distress.] HEAD: [Normal with no signs of trauma.] EYES: [Pupils equal, round and reactive to light, extraocular movements intact, sclera anicteric, conjunctiva clear.] ENT: [Ears normal, nares patent, oropharynx clear without exudates. Moist mucous membranes.] NECK: [Normal range of motion, supple without lymphadenopathy, JVD, or masses.] LUNGS: [Breath sounds equal, clear to auscultation bilaterally. No wheezes, and no crackles.] HEART: [Regular rate and rhythm, normal S1 and S2 without murmur, rub.] ABDOMEN: [Soft, nontender, normoactive bowel sounds. No guarding, no rebound. No masses.] EXTREMITIES: [Normal range of motion, no edema. No clubbing or cyanosis. No cords, (+) left foot erythema, or tenderness.] NEUROLOGICAL: [Cranial nerves II through XII grossly intact. Normal speech, normal gait.] PSYCH: [Normal mood, normal affect.] SKIN: [Left foot with ulcer to the hallux, ecchymosis, serosanguineous drainage , streaking up to the ankle, warmth, tenderness to palp to the anterior aspect of foot, ulcer to the left heel with no erythema, no discharge and nonetenderness to palp, warm, Dry, right plantar aspect over distal meta tarsals , nontender ulcerated lesion with a foul smelling odor, no streaking noted] Past History - Past Medical History Allergies/Adverse Reactions: Allergies Allergy/AdvReac Type Severity Reaction Status Date / Time No Known Allergies Allergy Verified 11/30/17 14:17 Home Medications: Ambulatory Orders Atorvastatin Calcium 30 mg PO HS 12/07/17 Dulaglutide [Trulicity] 1.5 mg SQ ASDIR 12/07/17 Isosorbide Mononitrate [Imdur -] 30 mg PO DAILY 12/07/17 Losartan Potassium [Cozaar -] 50 mg PO DAILY 12/07/17 Insulin Pump/Infus. Set/Meter [Accu-Chek Combo System] 1 each MC ASDIR 01/15/18 Collagenase Clostridium Hist. [Santyl -] 1 applic TP DAILY #60 tube 01/20/18 Anemia: No Asthma: No Cancer: No Cardiac Disorders: No CVA: No COPD: No CHF: No DVT: No Dementia: No Diabetes: Yes (INSULIN PUMP) GI Disorders: Yes (GERD) Disorders: Yes (BPH) HTN: Yes Hypercholesterolemia: No Liver Disease: No Seizures: No Thyroid Disease: No - Surgical History Abdominal Surgery: No Appendectomy: No Cardiac Surgery: No Cholecystectomy: No Lung Surgery: No Neurologic Surgery: Yes (LOWER BACK FOR HERNIATED DISC) Orthopedic Surgery: No - Immunization History Td Vaccination: Yes TDAP Vaccination: Yes Immunization Up to Date: Yes - Psycho Social/Smoking Cessation Hx Smoking Status: No Smoking History: Never smoked Have you smoked in the past 12 months: No Number of Cigarettes Smoked Daily: 2 If you are a former smoker, when did you quit?: 14 yrs ago Hx Alcohol Use: No Drug/Substance Use Hx: No Substance Use Type: None Hx Substance Use Treatment: No *Physical Exam - Vital Signs Last Vital Signs Temp Pulse Resp BP Pulse Ox 99.5 F 130 H 19 115/83 100 10/30/19 18:04 10/30/19 18:04 10/30/19 18:04 10/30/19 18:04 10/30/19 18:04 ED Treatment Course - LABORATORY CBC & Chemistry Diagram: 10/30/19 19:10 10/30/19 19:10 - RADIOLOGY Radiology Studies Ordered: Category Date Time Status CHEST PA & LAT [RAD] Stat Radiology 10/30/19 18:26 Ordered FOOT-LEFT [RAD] Stat Radiology 10/30/19 18:25 Ordered FOOT-RIGHT [RAD] Stat Radiology 10/30/19 18:25 Ordered Medical Decision Making - Medical Decision Making 10/30/19 18:30 This is a 49 y/o male with history of type 1 DM, HTN, BPH, herniated disc, GERD , renal insufficiency, foot ulcers with Hyperbaric treatments, laminectomy here with complaint of bilateral foot pain. States he had started to have pain to the left foot 3 days ago and then the right foot started today. States he had a callus on the left hallux and heel which he unroofed and now the hallux has a serosanguineous drainage but with pain and redness to the left foot. Pain he describes as sharp stabbing 10/0 with no relief from naproxen which he took 3 days ago. States he felt like he had a low-grade temperature at home but when he took his temperature it was 98.6. Also complains of right foot pain on the plantar aspect which started today. States his noticed that there was a foul odor coming from the wound. Describes the pain as a pressure 5/10. In reference to the right foot wound he has had for about 4 years. He has been seen podiatry last visit was 4 months ago. However since he has had a problem with his insurance he has not been able to follow with podiatry. He reports cleaning and dressing the wounds at home without incident. Patient denies cough , SOB, CP, palpitations, N/V/D, constipation, dysuria. Diabetic foot ulcers needing admission Patient with bilateral foot ulcers infected will admit for IV antibiotics. Unasyn 3 g and vancomycin 1 g Labs, chest x-ray, EKG EKG: ST at rate 120, normal axis deviation, no ST-T wave changes Chest x-ray negative Labs reviewed noted WBC of 14 Creatinine is 3.1 and is increased from 09/2019 when it was 2.4 Hydration ordered for the patient. X-ray left foot no osteo-noted X-ray right foot: ? Old osteomyelitis hallux. Chest x-ray no acute infiltrate Discussed with hospitalist resident will admit to Dr. Camilo service Discharge - Discharge Information Problems reviewed: Yes Clinical Impression/Diagnosis: Acute kidney injury, Cellulitis of foot Diabetic foot ulcers Qualifiers: Diabetic foot ulcer location: unspecified part of foot Diabetes mellitus type: type 1 Laterality: unspecified laterality Non-pressure ulcer stage: unspecified non-pressure ulcer stage Qualified Code(s): E10.621 - Type 1 diabetes mellitus with foot ulcer Condition: Fair - Admission Yes - Follow up/Referral - Patient Discharge Instructions - Post Discharge Activity
[2019-10-30] MEDS ORDERED: KETOROLAC TROMETHAMINE 30 MG/1 ML VIAL ONE (18:43)
[2019-10-30] MEDS: SODIUM CHLORIDE 1,000 ML IV SCH (19:10)
[2019-10-30 19:40] LABS: BASO % 0.5 % (0-2.0); EOS % 1.2 % (0-4.5); HEMATOCRIT 43.1 % (35.4-49); HEMOGLOBIN 14.5 GM/dL (11.7-16.9); LYMPH % 7.4 % (8-40); MCHC 33.7 g/dl (32.0-35.9); MONO % 8.5 % (3.8-10.2); NEUT % 82.4 % (42.8-82.8); PLATELET COUNT 256 K/MM3 (134-434); RBC 5.01 M/mm3 (4.00-5.60); RDW 13.2 % (11.9-15.9); WHITE BLOOD COUNT 14.9 K/mm3 (4.0-10.0)
[2019-10-30] MEDS ORDERED: AMPICILLIN NA/SULBACTAM NA 3 GM in SODIUM CHLORIDE 100 ML IVPB ONE (19:40)
[2019-10-30] MEDS ORDERED: VANCOMYCIN 1 GM in D5W (PRE-DOCKED) 1,000 MG/250 ML IVPB ONE (19:40)
[2019-10-30] MEDS ORDERED: morphine CARPU-JECT 4 MG/1 ML DISP.SYRIN IVPUSH ONE (19:40)
[2019-10-30 19:51] LABS: ALBUMIN 3.1 g/dl (3.4-5.0); BILIRUBIN,TOTAL 0.6 mg/dL (0.2-1); BLOOD UREA NITROGEN 46.2 mg/dL (7-18); CALCIUM 9.1 mg/dL (8.5-10.1); CREATININE 3.2 mg/dL (0.55-1.3); TOT PROT 7.5 g/dl (6.4-8.2)
[2019-10-30] MEDS ORDERED: morphine SULFATE 4 MG/ML VIAL ONE (19:54)
[2019-10-30] MEDS ORDERED: VANCOMYCIN 1 GRAM (PRE-DOCKED) 1,000 MG/250 ML BAG IVPB ONE ×2 (19:55→22:45)
[2019-10-30] MEDS ORDERED: SODIUM CHLORIDE 0.9% 500 ML INFUS.BAG IV ONE (20:20)
--- NOTE | 2019-10-30 22:10 | HP ---
Admitting History and Physical - Primary Care Physician PCP: Dr. Tovar - Admission Chief Complaint: foot infection History of Present Illness: 49 year old male with PMHx of Type I DM, HTN, BPH, GERD, renal insufficiency, foot ulcers with Hyperbaric treatments arrived to emergency room with complain of bilateral foot pain. As per patient left foot pain started 3 days ago and then the right foot started today. States he had a callus on the left hallux and heel which he unroofed and now the hallux has drainage but with pain and redness to the left foot. Pain is 10/10, sharp, stabbing with no relief on naproxen. Patient states he had low grade fever, with foul odor from left foot ulcer. Last visit to podiatry was 4 months ago. Unable to follow due to insurance issues. Patient denies cough, SOB, CP, palpitations, N/V/D, constipation, dysuria. 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 Cardiovascular: Yes: HTN, Hyperlipdemia Gastrointestinal: Yes: GERD Renal/: Yes: Renal Inusuff, BPH Musculoskeletal: Yes: Other (herniated discs) Endocrine: Yes: Diabetes Mellitus - Past Surgical History Past Surgical History: Yes: Laminectomy - Smoking History Smoking history: Never smoked Have you smoked in the past 12 months: No Aproximately how many cigarettes per day: 2 If you are a former smoker, when did you quit?: 14 yrs ago - Alcohol/Substance Use Hx Alcohol Use: No History of Substance Use: reports: None - Social History Usual Living Arrangement: Yes: With Spouse ADL: Independent 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 Set/Meter [Accu-Chek Combo System] 1 each MC ASDIR 01/15/18 Collagenase Clostridium Hist. [Santyl -] 1 applic TP DAILY #60 tube 01/20/18 Family Medical History Family Hx Coronary Artery Disease: Father (Stroke ) Review of Systems - Review of Systems Constitutional: reports: Fever Eyes: reports: No Symptoms HENT: reports: No Symptoms Neck: reports: No Symptoms Cardiovascular: reports: No Symptoms Respiratory: reports: No Symptoms Gastrointestinal: reports: No Symptoms Genitourinary: reports: No Symptoms Musculoskeletal: reports: Extremity Pain (b/l feet pain) Integumentary: reports: Erythema, Wound (b/l feet wound L worse than R) Neurological: reports: No Symptoms Endocrine: reports: No Symptoms Hematology/Lymphatic: reports: No Symptoms Psychiatric: reports: No Symptoms Physical Examination Vital Signs: Vital Signs Temperature 99.5 F 10/30/19 18:04 Pulse Rate 100 H 10/30/19 21:14 Respiratory Rate 18 10/30/19 21:14 Blood Pressure 142/90 10/30/19 21:14 O2 Sat by Pulse Oximetry (%) 95 10/30/19 21:14 Constitutional: Yes: No Distress, Calm Eyes: Yes: Conjunctiva Clear, EOM Intact HENT: Yes: Atraumatic, Normocephalic Neck: Yes: Supple, Trachea Midline Cardiovascular: Yes: Tachycardia, S1, S2 Respiratory: Yes: Regular, CTA Bilaterally Gastrointestinal: Yes: Normal Bowel Sounds, Soft Musculoskeletal: Yes: WNL Extremities: Yes: Erythema (left foot ecchymosis, serosanguineous drainage, streaking up to the ankle, warmth, tenderness to palp) Edema: Yes Peripheral Pulses WNL: Yes Integumentary: Yes: Erythema (Left foot with ulcer to the hallux, ecchymosis, serosanguineous drainage, warmth, tenderness) Wound/Incision: Yes: Draining, Reddened, Excoriated (b/l feet diabetic ulcers) Neurological: Yes: Alert, Oriented Labs: CBC, BMP 10/30/19 19:10 10/30/19 19:10 Imaging - Results Chest X-ray: Report Reviewed (No acute pathology) X-ray: Report Reviewed (X-ray left foot: extensive OA finding X-ray right foot: great toe with some erosive changes) EKG: Report Reviewed (EKG: ST at rate 120, normal axis deviation, no ST-T wave changes) Problem List - Problems (1) Sepsis Code(s): A41.9 - SEPSIS, UNSPECIFIED ORGANISM Qualifiers: Sepsis type: sepsis due to unspecified organism Qualified Code(s): A41.9 - Sepsis, unspecified organism (2) Cellulitis of foot Code(s): L03.119 - CELLULITIS OF UNSPECIFIED PART OF LIMB (3) Diabetic foot infection Code(s): E11.69 - TYPE 2 DIABETES MELLITUS WITH OTHER SPECIFIED COMPLICATION; L08.9 - LOCAL INFECTION OF THE SKIN AND SUBCUTANEOUS TISSUE, UNSP (4) Pffhq-yy-twhumry kidney injury Code(s): N17.9 - ACUTE KIDNEY FAILURE, UNSPECIFIED; N18.9 - CHRONIC KIDNEY DISEASE, UNSPECIFIED (5) HLD (hyperlipidemia) Code(s): E78.5 - HYPERLIPIDEMIA, UNSPECIFIED (6) BPH (benign prostatic hyperplasia) Code(s): N40.0 - BENIGN PROSTATIC HYPERPLASIA WITHOUT LOWER URINRY TRACT SYMP (7) Diabetes mellitus, insulin dependent (IDDM), uncontrolled Code(s): E10.65 - TYPE 1 DIABETES MELLITUS WITH HYPERGLYCEMIA (8) Hypertension Code(s): I10 - ESSENTIAL (PRIMARY) HYPERTENSION Qualifiers: (9) GERD (gastroesophageal reflux disease) Code(s): K21.9 - GASTRO-ESOPHAGEAL REFLUX DISEASE WITHOUT ESOPHAGITIS Assessment/Plan 49 year old male with PMHx of Type I DM with b/l foot ulcers, HTN, BPH, GERD, Renal insufficiency, arrived to emergency room with complain of bilateral foot pain, noted with left foot erythema, drainage and foul odor. # Sepsis # Left foot cellulitis # Infection b/l feet Diabetic ulcer EKG: ST at rate 120, normal axis deviation, no ST-T wave changes Chest x-ray negative X-ray left foot: extensive OA finding X-ray right foot: great toe with some erosive changes Labs reviewed WBC: 14 In ED given : Unasyn 3 g and vancomycin 1 g, analgesic Local wound care pain management continue with Unasyn 3mg q8 hours, and vancomycin 1 g daily follow up blood culture follow up repeat cbc, get ESR/CRP follow up ID follow up podiatry # Type I DM - monitor FSBS BID AC - coverage with novology sliding scale - follow up [id number] #Acute on chronic CKD -Creatinine is 3.1 and is increased from 09/2019 when it was 2.4 - continue with IV fluids - Avoid nephro toxins - follow up BMP in AM # HTN/HLD -Atorvastatin Calcium 30 mg PO HS -Isosorbide Mononitrate 30 mg PO DAILY -Losartan Potassium 50 mg PO DAILY FEN: IV fluids, DOUG/NCS VTE: Heparin SQ Inpatient med-surg Visit type - Emergency Visit Emergency Visit: Yes Care time: The patient presented to the Emergency Department on the above date and was hospitalized for further evaluation of their emergent condition. - New Patient This patient is new to me today: Yes Date on this admission: 10/30/19 - Critical Care Critical Care patient: No
[2019-10-30] MEDS ORDERED: ACETAMINOPHEN 325 MG TABLET (FP) PO PRN (22:20)
[2019-10-30] MEDS ORDERED: DOCUSATE SODIUM 100 MG CAPSULE (FP) PO PRN (22:20)
[2019-10-30] MEDS ORDERED: oxyCODONE HCL 5 MG TABLET PO PRN (22:20)
[2019-10-30] MEDS ORDERED: VANCOMYCIN 1,000 MG in DEXTROSE 5%-WATER - 250 ML IVPB SCH (22:45)
[2019-10-31] MEDS ORDERED: oxyCODONE HCL 5 MG TABLET ONE (01:25)
[2019-10-31] MEDS: SODIUM CHLORIDE 1,000 ML IV SCH ×3 (02:22→18:01)
[2019-10-31] MEDS ORDERED: MORPHINE SULFATE 2 MG/ML VIAL IVPUSH ONE (02:30)
[2019-10-31] MEDS ORDERED: MORPHINE SULFATE 2 MG/ML VIAL ONE (02:52)
[2019-10-31] MEDS: AMPICILLIN NA/SULBACTAM NA 3 GM in SODIUM CHLORIDE 100 ML IVPB SCH ×2 (04:16→09:42)
[2019-10-31] MEDS: HEPARIN NA (PORCINE) 5,000 UNITS/ML 1ML VIAL SQ SCH ×3 (06:14→22:13)
[2019-10-31] MEDS: INSULIN SLIDING SCALE (NOVOLOG) 1 VIAL SQ SCH ×2 (06:16→18:01)
[2019-10-31 08:25] LABS: HEMATOCRIT 39.3 % (35.4-49); HEMOGLOBIN 13.2 GM/dL (11.7-16.9); MCH 28.8 pg (25.7-33.7); MCHC 33.6 g/dl (32.0-35.9); MEAN CELL VOLUME 85.7 fl (80-96); MEAN PLT VOLUME 8.8 fl (7.5-11.1); PLATELET COUNT 213 K/MM3 (134-434); RBC 4.58 M/mm3 (4.00-5.60); RDW 13.1 % (11.9-15.9); WHITE BLOOD COUNT 12.4 K/mm3 (4.0-10.0)
[2019-10-31 08:39] LABS: BLOOD UREA NITROGEN 39.9 mg/dL (7-18); CALCIUM 8.2 mg/dL (8.5-10.1); CREATININE 2.5 mg/dL (0.55-1.3); POTASSIUM 4.6 mmol/L (3.5-5.1)
[2019-10-31] MEDS: LOSARTAN POTASSIUM 50 MG TABLET (FP) PO SCH (09:42)
[2019-10-31] MEDS: ISOSORBIDE MONONITRATE 30 MG TAB.SR.24H (FP) PO SCH (09:42)
--- NOTE | 2019-10-31 10:38 | EKG ---
Test Reason : Blood Pressure : / mmHG Vent. Rate : 120 BPM Atrial Rate : 120 BPM P-R Int : 188 ms QRS Dur : 072 ms QT Int : 294 ms P-R-T Axes : 037 009 027 degrees QTc Int : 415 ms SINUS TACHYCARDIA OTHERWISE NORMAL ECG WHEN COMPARED WITH ECG OF 17-JAN-2018 12:55, NO SIGNIFICANT CHANGE WAS FOUND Confirmed by SWATHI BURGOS MD ([id number]) on 10/31/2019 10:38:14 AM Referred By: Confirmed By:SWATHI BURGOS MD
--- NOTE | 2019-10-31 11:00 | PN ---
Progress Note, Physician Chief Complaint: Sepsis Left Foot Cellulitis Diabetic Foot Ulcer History of Present Illness: Previous notes and events reviewed awake and alert NAD complain of pain to L foot complain of nausea - Current Medication List Current Medications: Active Medications Acetaminophen (Tylenol -) 650 mg PO Q4H PRN PRN Reason: PAIN LEVEL 1-5 Atorvastatin Calcium 10 mg/ (Atorvastatin Calcium 20 mg) 30 mg PO HS [facility] Collagenase (Santyl -) 1 applic TP DAILY [facility]; Protocol Docusate Sodium (Colace -) 100 mg PO BID PRN PRN Reason: CONSTIPATION Heparin Sodium (Porcine) (Heparin -) 5,000 unit SQ TID [facility] Last Admin: 10/31/19 06:14 Dose: 5,000 unit Sodium Chloride (Normal Saline -) 1,000 mls @ 150 mls/hr IV ASDIR [facility] Last Admin: 10/31/19 09:42 Dose: 150 mls/hr Ampicillin Sodium/Sulbactam (Sodium 3 gm/ Sodium Chloride) 100 mls @ 200 mls/ hr IVPB Q8H-IV [facility] Last Admin: 10/31/19 09:42 Dose: 200 mls/hr Vancomycin HCl 1,000 mg/ (Dextrose) 250 mls @ 200 mls/hr IVPB Q24H [facility]; Protocol Insulin Aspart (Novolog Vial Sliding Scale -) 1 vial SQ BIDAC [facility]; Protocol Last Admin: 10/31/19 06:16 Dose: Not Given Isosorbide Mononitrate (Imdur -) 30 mg PO DAILY [facility] Last Admin: 10/31/19 09:42 Dose: 30 mg Losartan Potassium (Cozaar -) 50 mg PO DAILY [facility] Last Admin: 10/31/19 09:42 Dose: 50 mg Oxycodone HCl (Roxicodone -) 10 mg PO Q6H PRN PRN Reason: PAIN LEVEL 6-10 Last Admin: 10/31/19 01:28 Dose: 10 mg - Objective Vital Signs: Vital Signs Temperature 97.8 F 10/31/19 05:00 Pulse Rate 89 10/31/19 05:00 Respiratory Rate 20 10/31/19 05:00 Blood Pressure 148/93 10/31/19 05:00 O2 Sat by Pulse Oximetry (%) 96 10/31/19 02:36 Constitutional: Yes: No Distress, Calm Eyes: Yes: Conjunctiva Clear HENT: Yes: Atraumatic Cardiovascular: Yes: Regular Rate and Rhythm Respiratory: Yes: Regular, CTA Bilaterally Gastrointestinal: Yes: Normal Bowel Sounds, Soft Musculoskeletal: Yes: WNL Extremities: Yes: WNL Edema: No Integumentary: Yes: Other (right and left foot diabetic ulcer) Wound/Incision: Yes: Open to air Neurological: Yes: Alert, Oriented Psychiatric: Yes: Alert, Oriented Labs: CBC, BMP 10/31/19 07:05 10/31/19 07:05 Problem List - Problems (1) [id number] kidney injury Assessment/Plan: -BUN/Cr 39.9/2.5 -monitor Renal function -Renal Consult Code(s): N17.9 - ACUTE KIDNEY FAILURE, UNSPECIFIED; N18.9 - CHRONIC KIDNEY DISEASE, UNSPECIFIED (2) Cellulitis of foot Assessment/Plan: -ID and Podiatry on board -Leukocytosis -afebrile -wound culture and BC pending -Ceftriaxone -R foot xray shows osteoarthritic findings in the toes, bunion formation by the first MTP joint with possible erosive changes suggestive of gout and extensive osteoarthritic changes in the interphalangeal joint of the great toe with some erosive changes, calcaneal spurring, arthritic changes seen in the tarsal bone -L foot xray extensive osteoarthritic findings -ESR 78, CRP 6.8 -daily dressing changes -pain control Code(s): L03.119 - CELLULITIS OF UNSPECIFIED PART OF LIMB (3) Diabetic foot ulcer Assessment/Plan: -ID and Podiatry on board -Leukocytosis -afebrile -wound culture and BC pending -Ceftriaxone -R foot xray shows osteoarthritic findings in the toes, bunion formation by the first MTP joint with possible erosive changes suggestive of gout and extensive osteoarthritic changes in the interphalangeal joint of the great toe with some erosive changes, calcaneal spurring, arthritic changes seen in the tarsal bone -L foot xray extensive osteoarthritic findings -ESR 78, CRP 6.8 -daily dressing changes -pain control Code(s): E11.621 - TYPE 2 DIABETES MELLITUS WITH FOOT ULCER; L97.509 - NON- PRESSURE CHRONIC ULCER OTH PRT UNSP FOOT W UNSP SEVERITY Qualifiers: Diabetic foot ulcer location: unspecified part of foot Diabetes mellitus type: type 1 Laterality: unspecified laterality Non-pressure ulcer stage: unspecified non-pressure ulcer stage Qualified Code(s): E10.621 - Type 1 diabetes mellitus with foot ulcer; L97.509 - Non-pressure chronic ulcer of other part of unspecified foot with unspecified severity (4) GERD (gastroesophageal reflux disease) Assessment/Plan: -Pantoprazole Code(s): K21.9 - GASTRO-ESOPHAGEAL REFLUX DISEASE WITHOUT ESOPHAGITIS (5) HLD (hyperlipidemia) Assessment/Plan: -Atorvastatin Code(s): E78.5 - HYPERLIPIDEMIA, UNSPECIFIED (6) Diabetes mellitus, insulin dependent (IDDM), uncontrolled Assessment/Plan: -BGM ACHS -ISS -HgA1c 9.2% -Insulin pump -Endocrinology consult -diabetic/low Na diet Code(s): E10.65 - TYPE 1 DIABETES MELLITUS WITH HYPERGLYCEMIA (7) Hypertension Assessment/Plan: -Imdur -low Na/diabetic diet Code(s): I10 - ESSENTIAL (PRIMARY) HYPERTENSION Qualifiers: (8) Sepsis Assessment/Plan: -ID on board -Leukocytosis -afebrile -Ceftriaxone -wound culture and BC pending Code(s): A41.9 - SEPSIS, UNSPECIFIED ORGANISM Qualifiers: Sepsis type: sepsis due to unspecified organism Qualified Code(s): A41.9 - Sepsis, unspecified organism Assessment/Plan see problem list dvt ppx
[2019-10-31] MEDS ORDERED: VANCOMYCIN 1,000 MG in DEXTROSE 5%-WATER - 250 ML IVPB ONE (11:38)
--- NOTE | 2019-10-31 11:40 | PN ---
Progress Note (short form) - Note Progress Note: ID CONSULT DICTATED CELLULITIS L FOOT ? ABSCESS R/O SEPSIS SECONDARY TO SKIN SOURCE CKD DM AWAIT C/S PODIATRY EVALUATION EMPIRIC CEFTRIAXONE/ VANCOMYCIN
[2019-10-31] MEDS ORDERED: VANCOMYCIN 1 GRAM (PRE-DOCKED) 1,000 MG/250 ML BAG IVPB ONE (11:49)
--- NOTE | 2019-10-31 12:23 | CONS ---
INFECTIOUS DISEASE CONSULTATION DATE OF CONSULTATION: DATE OF DICTATION: 10/31/2019 HISTORY: The patient is a 49-year-old insulin-dependent diabetic who is evaluated for cellulitis of the left foot. The patient has a long history of diabetic foot infections. He has had a history of osteomyelitis in the past and has been treated with IV antibiotic therapy. He now returns with bilateral foot pain. The patient states that he had a longstanding callus on his left foot. The callus became avulsed. He subsequently noted worsening erythema, warmth, and swelling of his left foot extending to his distal left lower extremity. He had also experienced some subjective fever and chills. In addition, the patient is a longstanding right plantar ulcer for which he had been treated in the past with wound care and hyperbaric oxygen treatments. He reports that his noted a foul odor from the feet; however, no purulent drainage was noted. On review of his previous cultures, he has grown mixed organisms in the past from various wound cultures including group B strep. PAST MEDICAL HISTORY: Positive for insulin-dependent diabetes mellitus, hypertension, BPH, gastroesophageal reflux, chronic kidney disease, diabetic foot ulcers with osteomyelitis. PAST SURGICAL HISTORY: Status post insulin pump and laminectomy. ALLERGIES: No known allergies. MEDICATIONS: Include Lipitor, Trulicity, Imdur, Cozaar, Santyl. SOCIAL HISTORY: He lives at home with his significant other. Nonsmoker. Nondrinker. His last hospitalization was in December 2017. LABORATORY DATA: White count 14.9, hematocrit 43.1, platelet count 256. C-reactive protein 6.8. BUN 39, creatinine 2.5. Blood cultures are pending. SYSTEMS REVIEW: Neurologic: No loss of consciousness, seizure activity, focal weakness. Cardiac: Negative chest pain or palpitations. Respiratory: Negative cough or sputum production. Gastrointestinal: Positive for nausea. No diarrhea. Genitourinary: Negative for urinary tract infection. PHYSICAL EXAMINATION: General: He is awake and alert. He is not acutely toxic appearing. Vital Signs: Temperature 97.8, maximum temperature 99, blood pressure 148/93, pulse 89 regular. HEENT: Sclerae anicteric. Heart: Sounds S1, S2. Lungs: Clear bilaterally. Abdomen: Obese, soft, nontender. There is an insulin pump present in the left abdomen. Site looks clear. Extremities: Lower extremities, his left lower extremity there is a shallow-based, chronic plantar ulcer approximately 4 cm in diameter. It is dry. There is no surrounding erythema. No drainage is noted. A smaller ulceration is present on the left heel, which does not appear to be infected. Examination of the left foot, there is a callus present on the plantar and medial aspects of the left 1st metatarsal head. There is surrounding erythema extending approximately 6 x 8 cm. It is warm and tender to touch. The foot is diffusely swollen. There is edema and warmth present on the distal left lower extremity. IMPRESSION: 1. Cellulitis of the left foot and left lower extremity. 2. Rule out soft tissue abscess of the left foot. 3. Possible sepsis secondary skin source. 4. Chronic kidney disease. 5. Diabetes mellitus. PLAN: Await culture results. Podiatry evaluation. Empiric antibiotic coverage with vancomycin and ceftriaxone pending cultures adjusted for renal failure. We will follow. Thank you for the kind referral. EDWIN FRANCIS M.D. [id number]
[2019-10-31] MEDS ORDERED: DEXTROSE 5%-WATER 100 ML IVPB ONE (13:08)
[2019-10-31] MEDS: CEFTRIAXONE 2 GM in DEXTROSE 5%-WATER 100 ML IVPB SCH (13:17)
--- NOTE | 2019-10-31 13:58 | CONSULT ---
Consult Consult Specialty:: Podiatry - History of Present Illness Chief Complaint: Wound right foot bottom 4 years. Abscess left foot bunion area 2 weeks. 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: Yes: Peripheral Neuropathy Cardio/Vascular: Yes: HTN, Hyperlipdemia Gastrointestinal: Yes: GERD Renal/: Yes: Renal Inusuff, BPH Infectious Disease: Yes: Other Musculoskeletal: Yes: Other (herniated discs) Endocrine: Yes: Diabetes Mellitus - Past Surgical History Past Surgical History: Yes: Laminectomy - Alcohol/Substance Use Hx Alcohol Use: No History of Substance Use: reports: None - Smoking History Smoking history: Former smoker Have you smoked in the past 12 months: No Aproximately how many cigarettes per day: 2 If you are a former smoker, when did you quit?: 14 yrs ago - Social History Usual Living Arrangement: With Spouse ADL: Independent 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 Set/Meter [Accu-Chek Combo System] 1 each MC ASDIR 01/15/18 Collagenase Clostridium Hist. [Santyl -] 1 applic TP DAILY #60 tube 01/20/18 Physical Exam Vital Signs: Vital Signs Temperature 97.8 F 10/31/19 05:00 Pulse Rate 89 10/31/19 05:00 Respiratory Rate 20 10/31/19 05:00 Blood Pressure 148/93 10/31/19 05:00 O2 Sat by Pulse Oximetry (%) 96 10/31/19 02:36 Extremities: Yes: Other (chronic wound plntar right foot, -dainage, +grade 2-3 , +abscess medial 1st mpj left with cellulitis) Labs: CBC, BMP 10/31/19 07:05 10/31/19 07:05 Imaging - Results X-ray: Image Reviewed Assessment/Plan chronic wound right r/o neoplastic disease abscess left may need I&D MRI b/l feet. Betadine dressing b/l feet. NPO after midnight. Will decide in am if still needs it. Vascular consulted. IVABX as per ID. Will follow.
[2019-10-31] MEDS: COLLAGENASE CLOSTRIDIUM HIST. 30 GRAMS TUBE TP SCH (14:15)
[2019-10-31] MEDS ORDERED: ONDANSETRON *ODT* 4 MG TABLET SL PRN (14:34)
[2019-10-31] MEDS ORDERED: INSULIN (NOVOLOG) ASPART 100 UNITS/ML 10ML VIAL ONE (17:42)
[2019-10-31] MEDS: morphine SULFATE 4 MG/ML VIAL IVPUSH PRN (18:02)
--- NOTE | 2019-10-31 18:20 | PN ---
Progress Note (short form) - Note Progress Note: Vascular Surgery Pt seen and examined. DRessing removed from both feet. RLE - plantar foot ulcer. clean. Palpable DP. LLE - left great toe abscess. Palpable DP pulse. Pt cleared for drainage from a vascular standpoint. Pierre Thompson DO
--- NOTE | 2019-10-31 19:05 | CONSULT ---
Consult Consult Specialty:: Nephrology Reason for Consultation:: CKD - History of Present Illness Chief Complaint: bilateral foot pain History of Present Illness: Pt is a 49 year old male with pmhx of DM, HTN, BPH, CKD, and gerd who presents with bilateral lower ext pain. He get hyperbaric treatments for lower ext ulcers. He was found to have elevated wood finisher and I was called to evaluate him. He follow with Dr Wu. He complains of lower ext edema. He denies fevers or chills. He denies hematuria or dysuria. He denies nsaid use. 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: Peripheral Neuropathy Cardio/Vascular: Yes: HTN, Hyperlipdemia Gastrointestinal: Yes: GERD Renal/: Yes: Renal Inusuff, BPH Infectious Disease: Yes: Other Musculoskeletal: Yes: Other (herniated discs) Endocrine: Yes: Diabetes Mellitus - Past Surgical History Past Surgical History: Yes: Laminectomy - Alcohol/Substance Use Hx Alcohol Use: No History of Substance Use: reports: None - Smoking History Smoking history: Former smoker Have you smoked in the past 12 months: No Aproximately how many cigarettes per day: 2 If you are a former smoker, when did you quit?: 14 yrs ago - Social History Usual Living Arrangement: With Spouse ADL: Independent 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 Set/Meter [Accu-Chek Combo System] 1 each MC ASDIR 01/15/18 Collagenase Clostridium Hist. [Santyl -] 1 applic TP DAILY #60 tube 01/20/18 Family Medical History Family History: Denies Review of Systems - Review of Systems Constitutional: reports: Malaise Eyes: reports: No Symptoms HENT: reports: No Symptoms Neck: reports: No Symptoms Cardiovascular: reports: No Symptoms Respiratory: reports: No Symptoms Gastrointestinal: reports: No Symptoms Genitourinary: reports: No Symptoms Musculoskeletal: reports: Extremity Pain Integumentary: reports: Erythema Neurological: reports: No Symptoms Endocrine: reports: No Symptoms Hematology/Lymphatic: reports: No Symptoms Physical Exam Vital Signs: Vital Signs Temperature 98.8 F 10/31/19 14:31 Pulse Rate 98 H 10/31/19 14:31 Respiratory Rate 18 10/31/19 14:31 Blood Pressure 146/68 10/31/19 14:31 O2 Sat by Pulse Oximetry (%) 96 10/31/19 09:00 Constitutional: Yes: Calm Eyes: Yes: Conjunctiva Clear Cardiovascular: Yes: S1, S2 Respiratory: Yes: CTA Bilaterally Gastrointestinal: Yes: Normal Bowel Sounds, Soft Renal/: Yes: WNL Musculoskeletal: Yes: WNL Extremities: Yes: Other (bilateral foot pain) Neurological: Yes: Oriented Psychiatric: Yes: Oriented Labs: CBC, BMP 10/31/19 07:05 10/31/19 07:05 Laboratory Tests 10/04/19 10/30/19 10/31/19 06:44 19:10 07:05 Creatinine 2.4 H 3.2 H 2.5 H Imaging - Results Chest X-ray: Report Reviewed Problem List - Problems (1) Acute kidney injury Code(s): N17.9 - ACUTE KIDNEY FAILURE, UNSPECIFIED (2) Cellulitis of foot Code(s): L03.119 - CELLULITIS OF UNSPECIFIED PART OF LIMB (3) GERD (gastroesophageal reflux disease) Code(s): K21.9 - GASTRO-ESOPHAGEAL REFLUX DISEASE WITHOUT ESOPHAGITIS (4) CKD (chronic kidney disease) Code(s): N18.9 - CHRONIC KIDNEY DISEASE, UNSPECIFIED Assessment/Plan Current Medications Generic Name Dose Route Start Last Admin Trade Name Freq PRN Reason Stop Dose Admin Acetaminophen 650 mg 10/30/19 22:20 Tylenol - PO Q4H PRN PAIN LEVEL 1-5 Atorvastatin Calcium 10 mg/ 30 mg 10/31/19 22:00 Atorvastatin Calcium 20 mg PO HS [place] Collagenase 1 applic 10/31/19 10:00 10/31/19 14:15 Santyl - TP Not Given DAILY [place] Protocol Docusate Sodium 100 mg 10/30/19 22:20 Colace - PO BID PRN CONSTIPATION Heparin Sodium (Porcine) 5,000 unit 10/31/19 06:00 12/02/19 13:17 Heparin - SQ 5,000 unit TID [place] Administration Sodium Chloride 1,000 mls @ 150 mls/hr 10/30/19 18:45 10/31/19 18:01 Normal Saline - IV 150 mls/hr ASDIR [place] Administration Ceftriaxone Sodium 2 gm/ 100 mls @ 100 mls/hr 10/31/19 12:00 10/31/19 13:17 Dextrose IVPB 100 mls/hr DAILY [place] Administration Protocol Insulin Aspart 1 vial 10/31/19 07:00 10/31/19 18:01 Novolog Vial Sliding Scale - SQ 8 units BIDAC [place] Administration Protocol Isosorbide Mononitrate 30 mg 10/31/19 10:00 10/31/19 09:42 Imdur - PO 30 mg DAILY [place] Administration Losartan Potassium 50 mg 10/31/19 10:00 10/31/19 09:42 Cozaar - PO 50 mg DAILY [place] Administration Morphine Sulfate 4 mg 10/31/19 14:33 10/31/19 18:02 Morphine Sulfate IVPUSH 4 mg Q6H PRN Administration PAIN LEVEL 6-10 Ondansetron HCl 4 mg 10/31/19 14:34 10/31/19 18:19 Zofran Odt - SL 4 mg Q8H PRN Administration NAUSEA AND/OR VOMITING Pantoprazole Sodium 40 mg 11/01/19 10:00 Protonix - PO DAILY COUNT INCLUDES THE [facility] Impression 1. CKD 2. hx Inguinal lymphadenopathy 3. bilateral foot ulcers/pain 4. DM 5. HTN 6. DFU Plan - renal function returned to baseline - check bnp - repeat labs in am - vascular input appreciated - avoid nsaids - avoid nephrotoxins
[2019-10-31] MEDS ORDERED: ATORVASTATIN CA 20 MG TABLET (FP) ONE (20:27)
[2019-10-31] MEDS ORDERED: ATORVASTATIN CA 10 MG TABLET (FP) ONE (20:27)
[2019-10-31] MEDS ORDERED: ATORVASTATIN CA 80 MG TABLET (FP) PO SCH (22:00)
[2019-10-31] MEDS: ATORVASTATIN CA PO SCH (22:13)
--- NOTE | 2019-10-31 22:52 | CONSULT ---
Consult Consult Specialty:: endocrine Referred by:: fab umana Reason for Consultation:: type 1 dm. ckd - History of Present Illness Chief Complaint: high sugars History of Present Illness: 49 year old male with PMHx of Type DMT1,CKD,HTN, BPH, GERD, foot ulcers with Hyperbaric treatments .Admitted with infection in left foot. As per patient left foot pain started 3 days ago and then the right foot started today. States he had a callus on the left hallux and heel which he poked and now draining puss.has required wound debridement and iv antibiotics for infected abscess of left foot.his blood sugars have been elevated despite insulin pump and coverage. 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: Peripheral Neuropathy Cardio/Vascular: Yes: HTN, Hyperlipdemia Gastrointestinal: Yes: GERD Renal/: Yes: Renal Inusuff, BPH Infectious Disease: Yes: Other Musculoskeletal: Yes: Other (herniated discs) Endocrine: Yes: Diabetes Mellitus - Past Surgical History Past Surgical History: Yes: Laminectomy - Alcohol/Substance Use Hx Alcohol Use: No History of Substance Use: reports: None - Smoking History Smoking history: Former smoker Have you smoked in the past 12 months: No Aproximately how many cigarettes per day: 2 If you are a former smoker, when did you quit?: 14 yrs ago - Social History Usual Living Arrangement: With Spouse ADL: Independent 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 Set/Meter [Accu-Chek Combo System] 1 each MC ASDIR 01/15/18 Collagenase Clostridium Hist. [Santyl -] 1 applic TP DAILY #60 tube 01/20/18 Review of Systems - Review of Systems Constitutional: reports: Lethargy Eyes: reports: Blurred Vision HENT: reports: No Symptoms Neck: reports: No Symptoms Respiratory: reports: Exercise Intolerance Gastrointestinal: reports: Constipation, Indigestion Genitourinary: reports: No Symptoms Breasts: reports: No Symptoms Reported Musculoskeletal: reports: Extremity Pain, Joint Pain, Joint Swelling, Muscle Pain, Muscle Cramps, Muscle Weakness Integumentary: reports: Lesions, Pruritis, Wound Neurological: reports: Numbness Physical Exam Vital Signs: Vital Signs Temperature 99.2 F 10/31/19 18:00 Pulse Rate 96 H 10/31/19 18:00 Respiratory Rate 18 10/31/19 18:00 Blood Pressure 128/89 10/31/19 18:00 O2 Sat by Pulse Oximetry (%) 96 10/31/19 09:00 Constitutional: Yes: Anxious Eyes: Yes: EOM Intact HENT: Yes: Normocephalic Neck: Yes: Trachea Midline Cardiovascular: Yes: Regular Rate and Rhythm Respiratory: Yes: CTA Bilaterally Gastrointestinal: Yes: Normal Bowel Sounds ...Rectal Exam: Yes: Deferred Renal/: Yes: WNL Musculoskeletal: Yes: Joint Stiffness, Joint Swelling, Muscle Pain, Muscle Weakness Extremities: Yes: Cold, Delayed Capillary Refill, Pallor Edema: Yes Edema: LLE: 1+, RLE: 1+ Integumentary: Yes: Rash, Onychomycosis Wound/Incision: Yes: Dressing Removed, Draining Neurological: Yes: Alert, Oriented Labs: CBC, BMP 10/31/19 07:05 10/31/19 07:05 Problem List - Problems (1) Acute kidney injury Problems reviewed: Yes Code(s): N17.9 - ACUTE KIDNEY FAILURE, UNSPECIFIED (2) [id number] kidney injury Code(s): N17.9 - ACUTE KIDNEY FAILURE, UNSPECIFIED; N18.9 - CHRONIC KIDNEY DISEASE, UNSPECIFIED (3) Cellulitis of foot Code(s): L03.119 - CELLULITIS OF UNSPECIFIED PART OF LIMB (4) Diabetic foot ulcer Code(s): E11.621 - TYPE 2 DIABETES MELLITUS WITH FOOT ULCER; L97.509 - NON- PRESSURE CHRONIC ULCER OTH PRT UNSP FOOT W UNSP SEVERITY Qualifiers: Diabetic foot ulcer location: unspecified part of foot Diabetes mellitus type: type 1 Laterality: unspecified laterality Non-pressure ulcer stage: unspecified non-pressure ulcer stage Qualified Code(s): E10.621 - Type 1 diabetes mellitus with foot ulcer; L97.509 - Non-pressure chronic ulcer of other part of unspecified foot with unspecified severity (5) GERD (gastroesophageal reflux disease) Code(s): K21.9 - GASTRO-ESOPHAGEAL REFLUX DISEASE WITHOUT ESOPHAGITIS (6) HLD (hyperlipidemia) Code(s): E78.5 - HYPERLIPIDEMIA, UNSPECIFIED (7) Acid reflux Code(s): K21.9 - GASTRO-ESOPHAGEAL REFLUX DISEASE WITHOUT ESOPHAGITIS (8) BPH (benign prostatic hyperplasia) Code(s): N40.0 - BENIGN PROSTATIC HYPERPLASIA WITHOUT LOWER URINRY TRACT SYMP Assessment/Plan Current Active Problems Dm type 1 uncontrolled hyperglycemia diabetic nephropathy Acute kidney injury (Acute) [id number] kidney injury (Acute) Cellulitis of foot (Acute) Diabetic foot ulcer (Acute) GERD (gastroesophageal reflux disease) (Acute) HLD (hyperlipidemia) (Acute) Abnormal Lab Results 10/31/19 10/31/19 10/31/19 07:05 07:05 07:05 WBC 12.4 H ESR Sodium 135 L BUN 39.9 H Creatinine 2.5 H Random Glucose 212 H Hemoglobin A1c % Calcium 8.2 L C-Reactive Protein 6.8 H 10/31/19 10/31/19 07:05 07:05 WBC ESR 78 H Sodium BUN Creatinine Random Glucose Hemoglobin A1c % 9.2 H Calcium C-Reactive Protein Laboratory Tests 10/30/19 10/31/19 10/31/19 22:38 06:12 11:54 POC Glucometer 141 199 236 plan; bgm q4h levemir 40units am levemir 20units hs will adjust doses as needed wound care
[2019-11-01] MEDS: INSULIN SLIDING SCALE (NOVOLOG) 1 VIAL SQ SCH ×7 (00:15→23:51)
[2019-11-01] MEDS: HEPARIN NA (PORCINE) 5,000 UNITS/ML 1ML VIAL SQ SCH ×3 (05:26→21:08)
[2019-11-01] MEDS: INSULIN (LEVEMIR) 100 UNITS/ML UNITS SQ SCH ×2 (06:23→21:09)
[2019-11-01] MEDS ORDERED: INSULIN (NOVOLOG) ASPART 100 UNITS/ML 10ML VIAL ONE (06:38)
[2019-11-01 08:34] LABS: HEMATOCRIT 39.3 % (35.4-49); HEMOGLOBIN 13.5 GM/dL (11.7-16.9); MCH 29.3 pg (25.7-33.7); MCHC 34.4 g/dl (32.0-35.9); MEAN CELL VOLUME 85.1 fl (80-96); MEAN PLT VOLUME 8.5 fl (7.5-11.1); PLATELET COUNT 222 K/MM3 (134-434); RBC 4.62 M/mm3 (4.00-5.60); RDW 12.8 % (11.9-15.9); WHITE BLOOD COUNT 7.9 K/mm3 (4.0-10.0)
[2019-11-01] MEDS ORDERED: DEXTROSE 5%-WATER 100 ML IVPB ONE (09:08)
[2019-11-01] MEDS: CEFTRIAXONE 2 GM in DEXTROSE 5%-WATER 100 ML IVPB SCH (09:41)
[2019-11-01] MEDS: ISOSORBIDE MONONITRATE 30 MG TAB.SR.24H (FP) PO SCH (09:46)
[2019-11-01] MEDS: PANTOPRAZOLE 40 MG TABLET (FP) PO SCH (09:46)
[2019-11-01] MEDS: LOSARTAN POTASSIUM 50 MG TABLET (FP) PO SCH (09:46)
[2019-11-01] MEDS: COLLAGENASE CLOSTRIDIUM HIST. 30 GRAMS TUBE TP SCH (09:48)
--- NOTE | 2019-11-01 09:50 | PN ---
Progress Note, Physician Chief Complaint: Follow up b/l feet. vss - Current Medication List Current Medications: Active Medications Atorvastatin Calcium 10 mg/ (Atorvastatin Calcium 20 mg) 30 mg PO HS [facility] Last Admin: 10/31/19 22:13 Dose: 30 mg Collagenase (Santyl -) 1 applic TP DAILY [facility]; Protocol Last Admin: 11/01/19 09:48 Dose: Not Given Docusate Sodium (Colace -) 100 mg PO BID PRN PRN Reason: CONSTIPATION Heparin Sodium (Porcine) (Heparin -) 5,000 unit SQ TID [facility] Last Admin: 11/01/19 05:26 Dose: 5,000 unit Sodium Chloride (Normal Saline -) 1,000 mls @ 150 mls/hr IV ASDIR [facility] Last Admin: 10/31/19 18:01 Dose: 150 mls/hr Ceftriaxone Sodium 2 gm/ (Dextrose) 100 mls @ 100 mls/hr IVPB DAILY [facility]; Protocol Last Admin: 11/01/19 09:41 Dose: 100 mls/hr Insulin Aspart (Novolog Vial Sliding Scale -) 1 vial SQ Q4H [facility]; Protocol Last Admin: 11/01/19 06:26 Dose: Not Given Insulin Detemir (Levemir Vial) 40 units SQ AM [facility] Last Admin: 11/01/19 06:23 Dose: 40 units Insulin Detemir (Levemir Vial) 20 units SQ HS [facility] Isosorbide Mononitrate (Imdur -) 30 mg PO DAILY [facility] Last Admin: 11/01/19 09:46 Dose: 30 mg Losartan Potassium (Cozaar -) 50 mg PO DAILY [facility] Last Admin: 11/01/19 09:46 Dose: 50 mg Morphine Sulfate (Morphine Sulfate) 4 mg IVPUSH Q6H PRN PRN Reason: PAIN LEVEL 6-10 Last Admin: 10/31/19 18:02 Dose: 4 mg Ondansetron HCl (Zofran Odt -) 4 mg SL Q8H PRN PRN Reason: NAUSEA AND/OR VOMITING Last Admin: 10/31/19 18:19 Dose: 4 mg Pantoprazole Sodium (Protonix -) 40 mg PO DAILY [facility] Last Admin: 11/01/19 09:46 Dose: 40 mg - Objective Vital Signs: Vital Signs Temperature 99.2 F 10/31/19 18:00 Pulse Rate 96 H 10/31/19 18:00 Respiratory Rate 18 1202/19 21:00 Blood Pressure 128/89 10/31/19 18:00 O2 Sat by Pulse Oximetry (%) 98 10/31/19 21:00 Extremities: Yes: Other (+abscess improved left after draining occurred in bandage, +dry wound plantar right foot,) Labs: CBC, BMP 11/01/19 07:55 Assessment/Plan chronic wound right r/o neoplastic disease abscess left may need I&D MRI b/l feet. Debride wound left foot at bedside. Betadine dressing b/l feet. Will follow. IVABX as per ID.
[2019-11-01 10:01] LABS: ALBUMIN 2.4 g/dl (3.4-5.0); BILIRUBIN,TOTAL 0.7 mg/dL (0.2-1); CALCIUM 8.4 mg/dL (8.5-10.1); CREATININE 2.3 mg/dL (0.55-1.3); POTASSIUM 4.3 mmol/L (3.5-5.1); TOT PROT 6.8 g/dl (6.4-8.2)
[2019-11-01] MEDS: morphine SULFATE 4 MG/ML VIAL IVPUSH PRN ×2 (10:50→21:18)
--- NOTE | 2019-11-01 10:59 | PN ---
Progress Note, Physician Chief Complaint: Sepsis Left Foot Cellulitis Diabetic Foot Ulcer History of Present Illness: NAD sitting in bed at bedside just returned from left foot xray pain controlled with morphine - Current Medication List Current Medications: Active Medications Atorvastatin Calcium 10 mg/ (Atorvastatin Calcium 20 mg) 30 mg PO HS [facility] Last Admin: 10/31/19 22:13 Dose: 30 mg Collagenase (Santyl -) 1 applic TP DAILY [facility]; Protocol Last Admin: 11/01/19 09:48 Dose: Not Given Docusate Sodium (Colace -) 100 mg PO BID PRN PRN Reason: CONSTIPATION Heparin Sodium (Porcine) (Heparin -) 5,000 unit SQ TID [facility] Last Admin: 11/01/19 05:26 Dose: 5,000 unit Sodium Chloride (Normal Saline -) 1,000 mls @ 150 mls/hr IV ASDIR [facility] Last Admin: 10/31/19 18:01 Dose: 150 mls/hr Ceftriaxone Sodium 2 gm/ (Dextrose) 100 mls @ 100 mls/hr IVPB DAILY [facility]; Protocol Last Admin: 11/01/19 09:41 Dose: 100 mls/hr Insulin Aspart (Novolog Vial Sliding Scale -) 1 vial SQ Q4H [facility]; Protocol Last Admin: 11/01/19 10:56 Dose: 12 units Insulin Detemir (Levemir Vial) 40 units SQ AM [facility] Last Admin: 11/01/19 06:23 Dose: 40 units Insulin Detemir (Levemir Vial) 20 units SQ HS [facility] Isosorbide Mononitrate (Imdur -) 30 mg PO DAILY [facility] Last Admin: 11/01/19 09:46 Dose: 30 mg Losartan Potassium (Cozaar -) 50 mg PO DAILY [facility] Last Admin: 11/01/19 09:46 Dose: 50 mg Morphine Sulfate (Morphine Sulfate) 4 mg IVPUSH Q6H PRN PRN Reason: PAIN LEVEL 6-10 Last Admin: 11/01/19 10:50 Dose: 4 mg Ondansetron HCl (Zofran Odt -) 4 mg SL Q8H PRN PRN Reason: NAUSEA AND/OR VOMITING Last Admin: 10/31/19 18:19 Dose: 4 mg Pantoprazole Sodium (Protonix -) 40 mg PO DAILY [facility] Last Admin: 11/01/19 09:46 Dose: 40 mg - Objective Vital Signs: Vital Signs Temperature 99.2 F 10/31/19 18:00 Pulse Rate 96 H 10/31/19 18:00 Respiratory Rate 18 10/31/19 21:00 Blood Pressure 128/89 10/31/19 18:00 O2 Sat by Pulse Oximetry (%) 98 10/31/19 21:00 Constitutional: Yes: Well Nourished, No Distress, Calm Cardiovascular: Yes: Regular Rate and Rhythm Respiratory: Yes: Regular Gastrointestinal: Yes: Normal Bowel Sounds, Soft Genitourinary: Yes: WNL Musculoskeletal: Yes: WNL Extremities: Yes: WNL Edema: No Peripheral Pulses WNL: Yes Wound/Incision: Yes: Dressing Dry and Intact Neurological: Yes: Alert, Oriented Psychiatric: Yes: Alert, Oriented Labs: CBC, BMP 11/01/19 07:55 11/01/19 07:55 Assessment/Plan (1) [id number] kidney injury Assessment/Plan: -Cr at baseline -monitor Renal function -Renal Consult Code(s): N17.9 - ACUTE KIDNEY FAILURE, UNSPECIFIED; N18.9 - CHRONIC KIDNEY DISEASE, UNSPECIFIED (2) Cellulitis of foot Assessment/Plan: -ID and Podiatry on board -Leukocytosis -afebrile -wound culture and BC pending -Ceftriaxone -R foot xray shows osteoarthritic findings in the toes, bunion formation by the first MTP joint with possible erosive changes suggestive of gout and extensive osteoarthritic changes in the interphalangeal joint of the great toe with some erosive changes, calcaneal spurring, arthritic changes seen in the tarsal bone -L foot xray extensive osteoarthritic findings -ESR 78, CRP 6.8 -daily dressing changes -pain control -MRI BLLE to r/o osteomyelitis Code(s): L03.119 - CELLULITIS OF UNSPECIFIED PART OF LIMB (3) Diabetic foot ulcer Assessment/Plan: -ID and Podiatry on board -Leukocytosis -afebrile -wound culture and BC pending -Ceftriaxone -R foot xray shows osteoarthritic findings in the toes, bunion formation by the first MTP joint with possible erosive changes suggestive of gout and extensive osteoarthritic changes in the interphalangeal joint of the great toe with some erosive changes, calcaneal spurring, arthritic changes seen in the tarsal bone -L foot xray extensive osteoarthritic findings -ESR 78, CRP 6.8 -daily dressing changes -pain control Code(s): E11.621 - TYPE 2 DIABETES MELLITUS WITH FOOT ULCER; L97.509 - NON- PRESSURE CHRONIC ULCER OTH PRT UNSP FOOT W UNSP SEVERITY Qualifiers: Diabetic foot ulcer location: unspecified part of foot Diabetes mellitus type: type 1 Laterality: unspecified laterality Non-pressure ulcer stage: unspecified non-pressure ulcer stage Qualified Code(s): E10.621 - Type 1 diabetes mellitus with foot ulcer; L97.509 - Non-pressure chronic ulcer of other part of unspecified foot with unspecified severity (4) GERD (gastroesophageal reflux disease) Assessment/Plan: -Pantoprazole Code(s): K21.9 - GASTRO-ESOPHAGEAL REFLUX DISEASE WITHOUT ESOPHAGITIS (5) HLD (hyperlipidemia) Assessment/Plan: -Atorvastatin Code(s): E78.5 - HYPERLIPIDEMIA, UNSPECIFIED (6) Diabetes mellitus, insulin dependent (IDDM), uncontrolled Assessment/Plan: -BGM ACHS -ISS -HgA1c 9.2% -Insulin pump -Endocrinology consult -diabetic/low Na diet -Levemir 40 U QAM and 20 u QHS -Nutrition consult Code(s): E10.65 - TYPE 1 DIABETES MELLITUS WITH HYPERGLYCEMIA (7) Hypertension Assessment/Plan: -Imdur -low Na/diabetic diet Code(s): I10 - ESSENTIAL (PRIMARY) HYPERTENSION Qualifiers: (8) Sepsis Assessment/Plan: -ID on board -Leukocytosis -afebrile -Ceftriaxone+ Vanco -wound culture and BC pending Code(s): A41.9 - SEPSIS, UNSPECIFIED ORGANISM Qualifiers: Sepsis type: sepsis due to unspecified organism Qualified Code(s): A41.9 - Sepsis, unspecified organism
[2019-11-01] MEDS ORDERED: VANCOMYCIN 1 GRAM (PRE-DOCKED) 1,000 MG/250 ML BAG IVPB ONE (15:28)
--- NOTE | 2019-11-01 16:07 | PN ---
Progress Note, Physician History of Present Illness: REPORTS LESS L FOOT AND LE PAIN AFEBRILE WBC IMPROVED WNL CR IMPROVED BC (-) - Current Medication List Current Medications: Active Medications Atorvastatin Calcium 10 mg/ (Atorvastatin Calcium 20 mg) 30 mg PO HS [facility] Last Admin: 10/31/19 22:13 Dose: 30 mg Collagenase (Santyl -) 1 applic TP DAILY [facility]; Protocol Last Admin: 11/01/19 09:48 Dose: Not Given Docusate Sodium (Colace -) 100 mg PO BID PRN PRN Reason: CONSTIPATION Heparin Sodium (Porcine) (Heparin -) 5,000 unit SQ TID [facility] Last Admin: 11/01/19 13:47 Dose: 5,000 unit Sodium Chloride (Normal Saline -) 1,000 mls @ 150 mls/hr IV ASDIR [facility] Last Admin: 10/31/19 18:01 Dose: 150 mls/hr Ceftriaxone Sodium 2 gm/ (Dextrose) 100 mls @ 100 mls/hr IVPB DAILY [facility]; Protocol Last Admin: 11/01/19 09:41 Dose: 100 mls/hr Vancomycin HCl (Vancomycin (Pre-Docked)) 1,000 mg in 250 mls @ 166.667 mls/hr IVPB ONCE ONE; Protocol Stop: 11/01/19 16:57 Last Admin: 11/01/19 15:52 Dose: 166.667 mls/hr Insulin Aspart (Novolog Vial Sliding Scale -) 1 vial SQ Q4H [facility]; Protocol Last Admin: 11/01/19 13:46 Dose: 14 units Insulin Detemir (Levemir Vial) 40 units SQ AM [facility] Last Admin: 11/01/19 06:23 Dose: 40 units Insulin Detemir (Levemir Vial) 20 units SQ HS [facility] Isosorbide Mononitrate (Imdur -) 30 mg PO DAILY [facility] Last Admin: 11/01/19 09:46 Dose: 30 mg Losartan Potassium (Cozaar -) 50 mg PO DAILY [facility] Last Admin: 11/01/19 09:46 Dose: 50 mg Morphine Sulfate (Morphine Sulfate) 4 mg IVPUSH Q6H PRN PRN Reason: PAIN LEVEL 6-10 Last Admin: 11/01/19 10:50 Dose: 4 mg Ondansetron HCl (Zofran Odt -) 4 mg SL Q8H PRN PRN Reason: NAUSEA AND/OR VOMITING Last Admin: 10/31/19 18:19 Dose: 4 mg Pantoprazole Sodium (Protonix -) 40 mg PO DAILY [facility] Last Admin: 11/01/19 09:46 Dose: 40 mg - Objective Vital Signs: Vital Signs Temperature 99.2 F 10/31/19 18:00 Pulse Rate 98 H 11/01/19 15:09 Respiratory Rate 18 11/01/19 09:00 Blood Pressure 151/91 11/01/19 15:09 O2 Sat by Pulse Oximetry (%) 96 11/01/19 09:00 Constitutional: Yes: No Distress Eyes: Yes: Conjunctiva Clear Cardiovascular: Yes: Regular Rate and Rhythm, S1, S2 Respiratory: Yes: CTA Bilaterally Gastrointestinal: Yes: Normal Bowel Sounds, Soft. No: Tenderness Extremities: Yes: Other (DRY PLANTAR ULCER R FOOT L FOOT LESS SWOLLEN AND ERYTHEMATOUS) Labs: CBC, BMP 11/01/19 07:55 11/01/19 07:55 Assessment/Plan CELLULITIS ? ABSCESS L FOOT DIABETES MELLITUS AZOTEMIA AWAIT C/S CONTINUE CEFTRIAXONE REDOSE VANCOMYCIN
[2019-11-01] MEDS ORDERED: POTASSIUM CHLORIDE TABS 10 MEQ TABLET.ER (FP) PO ONE (17:27)
--- NOTE | 2019-11-01 17:27 | PN ---
Progress Note, Physician History of Present Illness: Pt seen and examined at bedside. He is awake and alert. he says that he was on chlorthalidone at home. - Current Medication List Current Medications: Active Medications Atorvastatin Calcium 10 mg/ (Atorvastatin Calcium 20 mg) 30 mg PO HS [facility] Last Admin: 10/31/19 22:13 Dose: 30 mg Collagenase (Santyl -) 1 applic TP DAILY [facility]; Protocol Last Admin: 11/01/19 09:48 Dose: Not Given Docusate Sodium (Colace -) 100 mg PO BID PRN PRN Reason: CONSTIPATION Heparin Sodium (Porcine) (Heparin -) 5,000 unit SQ TID [facility] Last Admin: 11/01/19 13:47 Dose: 5,000 unit Sodium Chloride (Normal Saline -) 1,000 mls @ 150 mls/hr IV ASDIR [facility] Last Admin: 10/31/19 18:01 Dose: 150 mls/hr Ceftriaxone Sodium 2 gm/ (Dextrose) 100 mls @ 100 mls/hr IVPB DAILY [facility]; Protocol Last Admin: 11/01/19 09:41 Dose: 100 mls/hr Insulin Aspart (Novolog Vial Sliding Scale -) 1 vial SQ Q4H [facility]; Protocol Last Admin: 11/01/19 13:46 Dose: 14 units Insulin Detemir (Levemir Vial) 40 units SQ AM [facility] Last Admin: 11/01/19 06:23 Dose: 40 units Insulin Detemir (Levemir Vial) 20 units SQ HS [facility] Isosorbide Mononitrate (Imdur -) 30 mg PO DAILY [facility] Last Admin: 11/01/19 09:46 Dose: 30 mg Losartan Potassium (Cozaar -) 50 mg PO DAILY [facility] Last Admin: 11/01/19 09:46 Dose: 50 mg Morphine Sulfate (Morphine Sulfate) 4 mg IVPUSH Q6H PRN PRN Reason: PAIN LEVEL 6-10 Last Admin: 11/01/19 10:50 Dose: 4 mg Ondansetron HCl (Zofran Odt -) 4 mg SL Q8H PRN PRN Reason: NAUSEA AND/OR VOMITING Last Admin: 10/31/19 18:19 Dose: 4 mg Pantoprazole Sodium (Protonix -) 40 mg PO DAILY [facility] Last Admin: 11/01/19 09:46 Dose: 40 mg - Objective Vital Signs: Vital Signs Temperature 99.2 F 10/31/19 18:00 Pulse Rate 98 H 11/01/19 15:09 Respiratory Rate 18 11/01/19 09:00 Blood Pressure 151/91 11/01/19 15:09 O2 Sat by Pulse Oximetry (%) 96 11/01/19 09:00 Constitutional: Yes: Calm Eyes: Yes: Conjunctiva Clear HENT: Yes: Atraumatic Cardiovascular: Yes: S1, S2 Respiratory: Yes: CTA Bilaterally Gastrointestinal: Yes: Normal Bowel Sounds, Soft Genitourinary: Yes: WNL Musculoskeletal: Yes: WNL Edema: Yes Edema: LLE: 1+, RLE: 1+ Neurological: Yes: Oriented Psychiatric: Yes: Oriented Labs: CBC, BMP 11/01/19 07:55 11/01/19 07:55 Problem List - Problems (1) Acute kidney injury Code(s): N17.9 - ACUTE KIDNEY FAILURE, UNSPECIFIED (2) Cellulitis of foot Code(s): L03.119 - CELLULITIS OF UNSPECIFIED PART OF LIMB (3) GERD (gastroesophageal reflux disease) Code(s): K21.9 - GASTRO-ESOPHAGEAL REFLUX DISEASE WITHOUT ESOPHAGITIS (4) CKD (chronic kidney disease) Code(s): N18.9 - CHRONIC KIDNEY DISEASE, UNSPECIFIED Assessment/Plan Current Medications Generic Name Dose Route Start Last Admin Trade Name Freq PRN Reason Stop Dose Admin Atorvastatin Calcium 10 mg/ 30 mg 10/31/19 22:00 10/31/19 22:13 Atorvastatin Calcium 20 mg PO 30 mg HS [facility] Administration Collagenase 1 applic 10/31/19 10:00 11/01/19 09:48 Santyl - TP Not Given DAILY [facility] Protocol Docusate Sodium 100 mg 10/31/19 22:44 Colace - PO BID PRN CONSTIPATION Heparin Sodium (Porcine) 5,000 unit 10/31/19 06:00 11/01/19 13:47 Heparin - SQ 5,000 unit TID [facility] Administration Sodium Chloride 1,000 mls @ 150 mls/hr 10/30/19 18:45 10/31/19 18:01 Normal Saline - IV 150 mls/hr ASDIR [facility] Administration Ceftriaxone Sodium 2 gm/ 100 mls @ 100 mls/hr 10/31/19 12:00 11/01/19 09:41 Dextrose IVPB 100 mls/hr DAILY [facility] Administration Protocol Insulin Aspart 1 vial 10/31/19 22:45 11/01/19 13:46 Novolog Vial Sliding Scale - SQ 14 units Q4H [facility] Administration Protocol Insulin Detemir 40 units 11/01/19 07:00 11/01/19 06:23 Levemir Vial SQ 40 units AM [facility] Administration Insulin Detemir 20 units 11/01/19 22:00 Levemir Vial SQ HS [facility] Isosorbide Mononitrate 30 mg 10/31/19 10:00 11/01/19 09:46 Imdur - PO 30 mg DAILY [facility] Administration Losartan Potassium 50 mg 10/31/19 10:00 11/01/19 09:46 Cozaar - PO 50 mg DAILY [facility] Administration Morphine Sulfate 4 mg 10/31/19 14:33 11/01/19 10:50 Morphine Sulfate IVPUSH 4 mg Q6H PRN Administration PAIN LEVEL 6-10 Ondansetron HCl 4 mg 10/31/19 14:34 10/31/19 18:19 Zofran Odt - SL 4 mg Q8H PRN Administration NAUSEA AND/OR VOMITING Pantoprazole Sodium 40 mg 11/01/19 10:00 11/01/19 09:46 Protonix - PO 40 mg DAILY [facility] Administration Impression 1. CKD 2. hx Inguinal lymphadenopathy 3. bilateral foot ulcers/pain 4. DM 5. HTN 6. DFU Plan - will give a dose of lasix - chlorthalidone on hold - renal function is improved - repeat labs in am - avoid nsaids - avoid nephrotoxins
[2019-11-01] MEDS: FUROSEMIDE 40 MG TABLET (FP) PO SCH (17:50)
[2019-11-01] MEDS: SODIUM CHLORIDE 1,000 ML IV SCH (19:21)
[2019-11-01] MEDS ORDERED: ATORVASTATIN CA 10 MG TABLET (FP) ONE (20:39)
[2019-11-01] MEDS ORDERED: ATORVASTATIN CA 20 MG TABLET (FP) ONE (20:39)
[2019-11-01] MEDS: ATORVASTATIN CA PO SCH (21:20)
[2019-11-02] MEDS ORDERED: SODIUM CHLORIDE 1,000 ML IV SCH (00:14)
[2019-11-02] MEDS: INSULIN SLIDING SCALE (NOVOLOG) 1 VIAL SQ SCH ×6 (04:14→22:52)
[2019-11-02] MEDS: HEPARIN NA (PORCINE) 5,000 UNITS/ML 1ML VIAL SQ SCH ×3 (06:30→22:50)
[2019-11-02] MEDS: INSULIN (LEVEMIR) 100 UNITS/ML UNITS SQ SCH ×2 (06:31→22:50)
[2019-11-02 08:21] LABS: ALBUMIN 2.5 g/dl (3.4-5.0); BILIRUBIN,TOTAL 0.4 mg/dL (0.2-1); BLOOD UREA NITROGEN 33.5 mg/dL (7-18); CALCIUM 8.5 mg/dL (8.5-10.1); CREATININE 2.4 mg/dL (0.55-1.3); POTASSIUM 4.4 mmol/L (3.5-5.1); TOT PROT 6.7 g/dl (6.4-8.2)
[2019-11-02] MEDS ORDERED: DEXTROSE 5%-WATER 100 ML IVPB ONE (08:56)
[2019-11-02] MEDS: CEFTRIAXONE 2 GM in DEXTROSE 5%-WATER 100 ML IVPB SCH (09:39)
[2019-11-02] MEDS: PANTOPRAZOLE 40 MG TABLET (FP) PO SCH (09:39)
[2019-11-02] MEDS: ISOSORBIDE MONONITRATE 30 MG TAB.SR.24H (FP) PO SCH (09:39)
[2019-11-02] MEDS: LOSARTAN POTASSIUM 50 MG TABLET (FP) PO SCH (09:40)
[2019-11-02] MEDS: COLLAGENASE CLOSTRIDIUM HIST. 30 GRAMS TUBE TP SCH ×2 (09:40→12:42)
[2019-11-02] MEDS: FUROSEMIDE 40 MG TABLET (FP) PO SCH (09:40)
[2019-11-02] MEDS: DOCUSATE SODIUM 100 MG CAPSULE (FP) PO PRN ×2 (09:41→22:49)
--- NOTE | 2019-11-02 11:24 | PN ---
Progress Note, Physician Chief Complaint: Sepsis Left Foot Cellulitis Diabetic Foot Ulcer History of Present Illness: NAD sitting in bed at bedside Awaiting MRI BLLE to r/o osteomyelitis pain controlled with morphine - Current Medication List Current Medications: Active Medications Atorvastatin Calcium 10 mg/ (Atorvastatin Calcium 20 mg) 30 mg PO HS [facility] Last Admin: 11/01/19 21:20 Dose: 30 mg Collagenase (Santyl -) 1 applic TP DAILY [facility]; Protocol Last Admin: 11/02/19 09:40 Dose: Not Given Docusate Sodium (Colace -) 100 mg PO BID PRN PRN Reason: CONSTIPATION Last Admin: 11/02/19 09:41 Dose: 100 mg Furosemide (Lasix -) 40 mg PO DAILY [facility] Last Admin: 11/02/19 09:40 Dose: 40 mg Heparin Sodium (Porcine) (Heparin -) 5,000 unit SQ TID [facility] Last Admin: 11/02/19 06:30 Dose: 5,000 unit Ceftriaxone Sodium 2 gm/ (Dextrose) 100 mls @ 100 mls/hr IVPB DAILY [facility]; Protocol Last Admin: 11/02/19 09:39 Dose: 100 mls/hr Insulin Aspart (Novolog Vial Sliding Scale -) 1 vial SQ Q4H [facility]; Protocol Last Admin: 11/02/19 10:46 Dose: 14 units Insulin Detemir (Levemir Vial) 40 units SQ AM [facility] Last Admin: 11/02/19 06:31 Dose: 40 units Insulin Detemir (Levemir Vial) 20 units SQ HS [facility] Last Admin: 11/01/19 21:09 Dose: 20 units Isosorbide Mononitrate (Imdur -) 30 mg PO DAILY [facility] Last Admin: 11/02/19 09:39 Dose: 30 mg Losartan Potassium (Cozaar -) 50 mg PO DAILY [facility] Last Admin: 11/02/19 09:40 Dose: 50 mg Morphine Sulfate (Morphine Sulfate) 4 mg IVPUSH Q6H PRN PRN Reason: PAIN LEVEL 6-10 Last Admin: 11/01/19 21:18 Dose: 4 mg Ondansetron HCl (Zofran Odt -) 4 mg SL Q8H PRN PRN Reason: NAUSEA AND/OR VOMITING Last Admin: 10/31/19 18:19 Dose: 4 mg Pantoprazole Sodium (Protonix -) 40 mg PO DAILY [facility] Last Admin: 11/02/19 09:39 Dose: 40 mg - Objective Vital Signs: Vital Signs Temperature 98.6 F 11/02/19 08:34 Pulse Rate 86 11/02/19 08:34 Respiratory Rate 18 11/02/19 08:34 Blood Pressure 164/98 11/02/19 08:34 O2 Sat by Pulse Oximetry (%) 95 11/01/19 21:00 Constitutional: Yes: Well Nourished, No Distress, Calm Cardiovascular: Yes: Regular Rate and Rhythm Respiratory: Yes: Regular Gastrointestinal: Yes: Normal Bowel Sounds, Soft Genitourinary: Yes: WNL Musculoskeletal: Yes: WNL Extremities: Yes: WNL Edema: No Peripheral Pulses WNL: Yes Wound/Incision: Yes: Dressing Dry and Intact (BLFoot) Neurological: Yes: Alert, Oriented Psychiatric: Yes: Alert, Oriented Labs: CBC, BMP 11/01/19 07:55 11/02/19 07:00 Assessment/Plan (1) [id number] kidney injury Assessment/Plan: -Cr at baseline -monitor Renal function -Renal Consult Code(s): N17.9 - ACUTE KIDNEY FAILURE, UNSPECIFIED; N18.9 - CHRONIC KIDNEY DISEASE, UNSPECIFIED (2) Cellulitis of foot Assessment/Plan: -ID and Podiatry on board -Leukocytosis -afebrile -wound culture and BC pending -Ceftriaxone -R foot xray shows osteoarthritic findings in the toes, bunion formation by the first MTP joint with possible erosive changes suggestive of gout and extensive osteoarthritic changes in the interphalangeal joint of the great toe with some erosive changes, calcaneal spurring, arthritic changes seen in the tarsal bone -L foot xray extensive osteoarthritic findings -ESR 78, CRP 6.8 -daily dressing changes -pain control -MRI BLLE to r/o osteomyelitis Code(s): L03.119 - CELLULITIS OF UNSPECIFIED PART OF LIMB (3) Diabetic foot ulcer Assessment/Plan: -ID and Podiatry on board -Leukocytosis -afebrile -wound culture and BC pending -Ceftriaxone -R foot xray shows osteoarthritic findings in the toes, bunion formation by the first MTP joint with possible erosive changes suggestive of gout and extensive osteoarthritic changes in the interphalangeal joint of the great toe with some erosive changes, calcaneal spurring, arthritic changes seen in the tarsal bone -L foot xray extensive osteoarthritic findings -ESR 78, CRP 6.8 -daily dressing changes -pain control Code(s): E11.621 - TYPE 2 DIABETES MELLITUS WITH FOOT ULCER; L97.509 - NON- PRESSURE CHRONIC ULCER OTH PRT UNSP FOOT W UNSP SEVERITY Qualifiers: Diabetic foot ulcer location: unspecified part of foot Diabetes mellitus type: type 1 Laterality: unspecified laterality Non-pressure ulcer stage: unspecified non-pressure ulcer stage Qualified Code(s): E10.621 - Type 1 diabetes mellitus with foot ulcer; L97.509 - Non-pressure chronic ulcer of other part of unspecified foot with unspecified severity (4) GERD (gastroesophageal reflux disease) Assessment/Plan: -Pantoprazole Code(s): K21.9 - GASTRO-ESOPHAGEAL REFLUX DISEASE WITHOUT ESOPHAGITIS (5) HLD (hyperlipidemia) Assessment/Plan: -Atorvastatin Code(s): E78.5 - HYPERLIPIDEMIA, UNSPECIFIED (6) Diabetes mellitus, insulin dependent (IDDM), uncontrolled Assessment/Plan: -BGM ACHS -ISS -HgA1c 9.2% -Insulin pump -Endocrinology consult -diabetic/low Na diet -Levemir 40 U QAM and 20 u QHS -Nutrition consult Code(s): E10.65 - TYPE 1 DIABETES MELLITUS WITH HYPERGLYCEMIA (7) Hypertension Assessment/Plan: -Imdur -low Na/diabetic diet Code(s): I10 - ESSENTIAL (PRIMARY) HYPERTENSION Qualifiers: (8) Sepsis Assessment/Plan: -ID on board -Leukocytosis -afebrile -Ceftriaxone+ Vanco -wound culture and BC pending Code(s): A41.9 - SEPSIS, UNSPECIFIED ORGANISM Qualifiers: Sepsis type: sepsis due to unspecified organism Qualified Code(s): A41.9 - Sepsis, unspecified organism
--- NOTE | 2019-11-02 13:31 | PN ---
Progress Note (short form) - Note Progress Note: FUV b/l feet. vss MRI not ready yet, +resolving cellulitis left foot, grade 1-2 wound left foot, - drainage b/l, grade 2 wound left 1st mpj improved cellulitis grade1-2 wound right Santyl dressing to left foot wound Betadine dressing right foot wound Awaiting MRIb/l feet. Will follow. Abx as per ID.
[2019-11-02 15:15] VITALS: BMI 35.9
--- NOTE | 2019-11-02 20:09 | PN ---
Progress Note, Physician History of Present Illness: Pt seen and examined at bedside. He is awake and alert. He feels that the edema is improving. - Current Medication List Current Medications: Active Medications Atorvastatin Calcium 10 mg/ (Atorvastatin Calcium 20 mg) 30 mg PO HS [facility] Last Admin: 11/01/19 21:20 Dose: 30 mg Collagenase (Santyl -) 1 applic TP DAILY [facility]; Protocol Last Admin: 11/02/19 12:42 Dose: 1 applic Docusate Sodium (Colace -) 100 mg PO BID PRN PRN Reason: CONSTIPATION Last Admin: 11/02/19 09:41 Dose: 100 mg Furosemide (Lasix -) 40 mg PO DAILY [facility] Last Admin: 11/02/19 09:40 Dose: 40 mg Heparin Sodium (Porcine) (Heparin -) 5,000 unit SQ TID [facility] Last Admin: 11/02/19 14:21 Dose: 5,000 unit Ceftriaxone Sodium 2 gm/ (Dextrose) 100 mls @ 100 mls/hr IVPB DAILY [facility]; Protocol Last Admin: 11/02/19 09:39 Dose: 100 mls/hr Insulin Aspart (Novolog Vial Sliding Scale -) 1 vial SQ Q4H [facility]; Protocol Last Admin: 11/02/19 18:35 Dose: 12 units Insulin Detemir (Levemir Vial) 40 units SQ AM [facility] Last Admin: 11/02/19 06:31 Dose: 40 units Insulin Detemir (Levemir Vial) 20 units SQ HS [facility] Last Admin: 11/01/19 21:09 Dose: 20 units Isosorbide Mononitrate (Imdur -) 30 mg PO DAILY [facility] Last Admin: 11/02/19 09:39 Dose: 30 mg Losartan Potassium (Cozaar -) 50 mg PO DAILY [facility] Last Admin: 11/02/19 09:40 Dose: 50 mg Morphine Sulfate (Morphine Sulfate) 4 mg IVPUSH Q6H PRN PRN Reason: PAIN LEVEL 6-10 Last Admin: 11/01/19 21:18 Dose: 4 mg Ondansetron HCl (Zofran Odt -) 4 mg SL Q8H PRN PRN Reason: NAUSEA AND/OR VOMITING Last Admin: 10/31/19 18:19 Dose: 4 mg Pantoprazole Sodium (Protonix -) 40 mg PO DAILY [facility] Last Admin: 11/02/19 09:39 Dose: 40 mg - Objective Vital Signs: Vital Signs Temperature 98.7 F 11/02/19 15:13 Pulse Rate 92 H 11/02/19 15:13 Respiratory Rate 18 11/02/19 15:13 Blood Pressure 142/90 11/02/19 15:13 O2 Sat by Pulse Oximetry (%) 96 11/02/19 09:00 Constitutional: Yes: Calm Eyes: Yes: Conjunctiva Clear HENT: Yes: Atraumatic Cardiovascular: Yes: S1, S2 Respiratory: Yes: CTA Bilaterally Gastrointestinal: Yes: Soft Genitourinary: Yes: WNL Musculoskeletal: Yes: WNL Edema: Yes Edema: LLE: 1+, RLE: 1+ Wound/Incision: Yes: Dressing Dry and Intact Neurological: Yes: Oriented Labs: CBC, BMP 11/01/19 07:55 11/02/19 07:00 Problem List - Problems (1) Acute kidney injury Code(s): N17.9 - ACUTE KIDNEY FAILURE, UNSPECIFIED (2) Cellulitis of foot Code(s): L03.119 - CELLULITIS OF UNSPECIFIED PART OF LIMB (3) GERD (gastroesophageal reflux disease) Code(s): K21.9 - GASTRO-ESOPHAGEAL REFLUX DISEASE WITHOUT ESOPHAGITIS (4) CKD (chronic kidney disease) Code(s): N18.9 - CHRONIC KIDNEY DISEASE, UNSPECIFIED Assessment/Plan Current Medications Generic Name Dose Route Start Last Admin Trade Name Freq PRN Reason Stop Dose Admin Atorvastatin Calcium 10 mg/ 30 mg 10/31/19 22:00 11/01/19 21:20 Atorvastatin Calcium 20 mg PO 30 mg HS [facility] Administration Collagenase 1 applic 10/31/19 10:00 11/02/19 12:42 Santyl - TP 1 applic DAILY [facility] Administration Protocol Docusate Sodium 100 mg 10/31/19 22:44 11/02/19 09:41 Colace - PO 100 mg BID PRN Administration CONSTIPATION Furosemide 40 mg 11/01/19 17:30 11/02/19 09:40 Lasix - PO 40 mg DAILY [facility] Administration Heparin Sodium (Porcine) 5,000 unit 10/31/19 06:00 11/02/19 14:21 Heparin - SQ 5,000 unit TID [facility] Administration Ceftriaxone Sodium 2 gm/ 100 mls @ 100 mls/hr 10/31/19 12:00 11/02/19 09:39 Dextrose IVPB 100 mls/hr DAILY [facility] Administration Protocol Insulin Aspart 1 vial 10/31/19 22:45 11/02/19 18:35 Novolog Vial Sliding Scale - SQ 12 units Q4H [facility] Administration Protocol Insulin Detemir 40 units 11/01/19 07:00 11/02/19 06:31 Levemir Vial SQ 40 units AM [facility] Administration Insulin Detemir 20 units 11/01/19 22:00 11/01/19 21:09 Levemir Vial SQ 20 units HS [facility] Administration Isosorbide Mononitrate 30 mg 10/31/19 10:00 11/02/19 09:39 Imdur - PO 30 mg DAILY [facility] Administration Losartan Potassium 50 mg 10/31/19 10:00 11/02/19 09:40 Cozaar - PO 50 mg DAILY [facility] Administration Morphine Sulfate 4 mg 10/31/19 14:33 11/01/19 21:18 Morphine Sulfate IVPUSH 4 mg Q6H PRN Administration PAIN LEVEL 6-10 Ondansetron HCl 4 mg 10/31/19 14:34 10/31/19 18:19 Zofran Odt - SL 4 mg Q8H PRN Administration NAUSEA AND/OR VOMITING Pantoprazole Sodium 40 mg 11/01/19 10:00 11/02/19 09:39 Protonix - PO 40 mg DAILY [facility] Administration Impression 1. CKD 2. hx Inguinal lymphadenopathy 3. bilateral foot ulcers/pain 4. DM 5. HTN 6. DFU Plan - cont po lasix - monitor labs daily - repeat labs in am - edema is starting to improve - avoid nsaids - avoid nephrotoxins
[2019-11-02] MEDS ORDERED: ATORVASTATIN CA 20 MG TABLET (FP) ONE (22:35)
[2019-11-02] MEDS ORDERED: INSULIN (NOVOLOG) ASPART 100 UNITS/ML 10ML VIAL ONE (22:36)
[2019-11-02] MEDS ORDERED: ATORVASTATIN CA 10 MG TABLET (FP) ONE (22:36)
[2019-11-02] MEDS: ATORVASTATIN CA PO SCH (22:48)
[2019-11-02] MEDS: morphine SULFATE 4 MG/ML VIAL IVPUSH PRN (22:54)
[2019-11-03] MEDS: INSULIN SLIDING SCALE (NOVOLOG) 1 VIAL SQ SCH ×7 (01:54→22:22)
[2019-11-03] MEDS: INSULIN (LEVEMIR) 100 UNITS/ML UNITS SQ SCH ×2 (06:16→22:22)
[2019-11-03] MEDS: HEPARIN NA (PORCINE) 5,000 UNITS/ML 1ML VIAL SQ SCH ×3 (06:16→22:22)
[2019-11-03] MEDS ORDERED: INSULIN (NOVOLOG) ASPART 100 UNITS/ML 10ML VIAL ONE ×2 (06:36→12:13)
[2019-11-03] MEDS ORDERED: INSULIN (LEVEMIR) 100 UNITS/ML UNITS SQ ONE (06:36)
[2019-11-03] MEDS ORDERED: PT OWN MED DRAWER 7, Y5N ONE (06:37)
[2019-11-03 08:00] LABS: ALBUMIN 2.4 g/dl (3.4-5.0); BILIRUBIN,TOTAL 0.3 mg/dL (0.2-1); BLOOD UREA NITROGEN 28.2 mg/dL (7-18); CALCIUM 8.4 mg/dL (8.5-10.1); CREATININE 2.4 mg/dL (0.55-1.3); MAGNESIUM 1.7 mg/dL (1.8-2.4); POTASSIUM 3.9 mmol/L (3.5-5.1); TOT PROT 6.5 g/dl (6.4-8.2)
[2019-11-03] MEDS ORDERED: DEXTROSE 5%-WATER 100 ML IVPB ONE ×2 (10:03→10:11)
[2019-11-03] MEDS: FUROSEMIDE 40 MG TABLET (FP) PO SCH (10:09)
[2019-11-03] MEDS: ISOSORBIDE MONONITRATE 30 MG TAB.SR.24H (FP) PO SCH (10:10)
[2019-11-03] MEDS: LOSARTAN POTASSIUM 50 MG TABLET (FP) PO SCH (10:10)
[2019-11-03] MEDS: PANTOPRAZOLE 40 MG TABLET (FP) PO SCH (10:10)
[2019-11-03] MEDS: CEFTRIAXONE 2 GM in DEXTROSE 5%-WATER 100 ML IVPB SCH (10:12)
[2019-11-03] MEDS: COLLAGENASE CLOSTRIDIUM HIST. 30 GRAMS TUBE TP SCH (10:13)
--- NOTE | 2019-11-03 11:50 | PN ---
Progress Note, Physician History of Present Illness: REPORTS LESS L FOOT AND LE PAIN ABLE TO AMBULATE AFEBRILE WBC IMPROVED WNL CR IMPROVED BC (-) WOUND C/S GRP B STREP - Current Medication List Current Medications: Active Medications Atorvastatin Calcium 10 mg/ (Atorvastatin Calcium 20 mg) 30 mg PO HS [facility] Last Admin: 11/02/19 22:48 Dose: 30 mg Collagenase (Santyl -) 1 applic TP DAILY [facility]; Protocol Last Admin: 11/03/19 10:13 Dose: 1 applic Docusate Sodium (Colace -) 100 mg PO BID PRN PRN Reason: CONSTIPATION Last Admin: 11/02/19 22:49 Dose: 100 mg Furosemide (Lasix -) 40 mg PO DAILY [facility] Last Admin: 11/03/19 10:09 Dose: 40 mg Heparin Sodium (Porcine) (Heparin -) 5,000 unit SQ TID [facility] Last Admin: 11/03/19 06:16 Dose: 5,000 unit Ceftriaxone Sodium 2 gm/ (Dextrose) 100 mls @ 100 mls/hr IVPB DAILY [facility]; Protocol Last Admin: 11/03/19 10:12 Dose: 100 mls/hr Insulin Aspart (Novolog Vial Sliding Scale -) 1 vial SQ Q4H [facility]; Protocol Last Admin: 11/03/19 06:15 Dose: 9 units Insulin Detemir (Levemir Vial) 40 units SQ AM [facility] Last Admin: 11/03/19 06:16 Dose: 40 units Insulin Detemir (Levemir Vial) 20 units SQ HS [facility] Last Admin: 11/02/19 22:50 Dose: 20 units Isosorbide Mononitrate (Imdur -) 30 mg PO DAILY [facility] Last Admin: 11/03/19 10:10 Dose: 30 mg Losartan Potassium (Cozaar -) 50 mg PO DAILY [facility] Last Admin: 11/03/19 10:10 Dose: 50 mg Morphine Sulfate (Morphine Sulfate) 4 mg IVPUSH Q6H PRN PRN Reason: PAIN LEVEL 6-10 Last Admin: 11/02/19 22:54 Dose: 4 mg Ondansetron HCl (Zofran Odt -) 4 mg SL Q8H PRN PRN Reason: NAUSEA AND/OR VOMITING Last Admin: 10/31/19 18:19 Dose: 4 mg Pantoprazole Sodium (Protonix -) 40 mg PO DAILY [facility] Last Admin: 11/03/19 10:10 Dose: 40 mg - Objective Vital Signs: Vital Signs Temperature 98 F 11/03/19 10:00 Pulse Rate 96 H 11/03/19 10:00 Respiratory Rate 18 11/03/19 10:00 Blood Pressure 151/105 H 11/03/19 10:00 O2 Sat by Pulse Oximetry (%) 96 11/03/19 08:49 Constitutional: Yes: No Distress Eyes: Yes: Conjunctiva Clear Cardiovascular: Yes: Regular Rate and Rhythm, S1, S2 Respiratory: Yes: CTA Bilaterally Gastrointestinal: Yes: Normal Bowel Sounds, Soft. No: Tenderness Extremities: Yes: Other (DRY PLANTAR ULCER R FOOT; DECREASED SWELLING/ ERYTHEMA L FOOT; NO DRAINAGE) Labs: CBC, BMP 11/01/19 07:55 11/03/19 06:40 Assessment/Plan CELLULITIS ? ABSCESS L FOOT DIABETES MELLITUS AZOTEMIA MRI READING PENDING CONTINUE CEFTRIAXONE
[2019-11-03] MEDS: morphine SULFATE 4 MG/ML VIAL IVPUSH PRN ×2 (13:46→22:23)
--- NOTE | 2019-11-03 14:05 | PN ---
Progress Note, Physician History of Present Illness: Pt seen and examined at bedside. He is awake and alert. He feels that his edema is improving. - Current Medication List Current Medications: Active Medications Atorvastatin Calcium 10 mg/ (Atorvastatin Calcium 20 mg) 30 mg PO HS [facility] Last Admin: 11/02/19 22:48 Dose: 30 mg Collagenase (Santyl -) 1 applic TP DAILY [facility]; Protocol Last Admin: 11/03/19 10:13 Dose: 1 applic Docusate Sodium (Colace -) 100 mg PO BID PRN PRN Reason: CONSTIPATION Last Admin: 11/02/19 22:49 Dose: 100 mg Furosemide (Lasix -) 40 mg PO DAILY [facility] Last Admin: 11/03/19 10:09 Dose: 40 mg Heparin Sodium (Porcine) (Heparin -) 5,000 unit SQ TID [facility] Last Admin: 11/03/19 06:16 Dose: 5,000 unit Ceftriaxone Sodium 2 gm/ (Dextrose) 100 mls @ 100 mls/hr IVPB DAILY [facility]; Protocol Last Admin: 11/03/19 10:12 Dose: 100 mls/hr Insulin Aspart (Novolog Vial Sliding Scale -) 1 vial SQ Q4H [facility]; Protocol Last Admin: 11/03/19 12:14 Dose: 12 units Insulin Detemir (Levemir Vial) 40 units SQ AM [facility] Last Admin: 11/03/19 06:16 Dose: 40 units Insulin Detemir (Levemir Vial) 20 units SQ HS [facility] Last Admin: 11/02/19 22:50 Dose: 20 units Isosorbide Mononitrate (Imdur -) 30 mg PO DAILY [facility] Last Admin: 11/03/19 10:10 Dose: 30 mg Losartan Potassium (Cozaar -) 50 mg PO DAILY [facility] Last Admin: 11/03/19 10:10 Dose: 50 mg Morphine Sulfate (Morphine Sulfate) 4 mg IVPUSH Q6H PRN PRN Reason: PAIN LEVEL 6-10 Last Admin: 11/03/19 13:46 Dose: 4 mg Ondansetron HCl (Zofran Odt -) 4 mg SL Q8H PRN PRN Reason: NAUSEA AND/OR VOMITING Last Admin: 10/31/19 18:19 Dose: 4 mg Pantoprazole Sodium (Protonix -) 40 mg PO DAILY [facility] Last Admin: 11/03/19 10:10 Dose: 40 mg - Objective Vital Signs: Vital Signs Temperature 98 F 11/03/19 10:00 Pulse Rate 96 H 11/03/19 10:00 Respiratory Rate 18 11/03/19 10:00 Blood Pressure 151/105 H 11/03/19 10:00 O2 Sat by Pulse Oximetry (%) 96 11/03/19 08:49 Constitutional: Yes: Calm Eyes: Yes: Conjunctiva Clear HENT: Yes: Atraumatic Cardiovascular: Yes: S1, S2 Respiratory: Yes: CTA Bilaterally Gastrointestinal: Yes: Normal Bowel Sounds, Soft Genitourinary: Yes: WNL Musculoskeletal: Yes: WNL Edema: Yes Edema: LLE: Trace, RLE: Trace Wound/Incision: Yes: Dressing Dry and Intact Neurological: Yes: Oriented Psychiatric: Yes: Oriented Labs: CBC, BMP 11/01/19 07:55 11/03/19 06:40 Problem List - Problems (1) Acute kidney injury Code(s): N17.9 - ACUTE KIDNEY FAILURE, UNSPECIFIED (2) Cellulitis of foot Code(s): L03.119 - CELLULITIS OF UNSPECIFIED PART OF LIMB (3) GERD (gastroesophageal reflux disease) Code(s): K21.9 - GASTRO-ESOPHAGEAL REFLUX DISEASE WITHOUT ESOPHAGITIS (4) CKD (chronic kidney disease) Code(s): N18.9 - CHRONIC KIDNEY DISEASE, UNSPECIFIED Assessment/Plan Current Medications Generic Name Dose Route Start Last Admin Trade Name Freq PRN Reason Stop Dose Admin Atorvastatin Calcium 10 mg/ 30 mg 10/31/19 22:00 11/02/19 22:48 Atorvastatin Calcium 20 mg PO 30 mg HS [facility] Administration Collagenase 1 applic 10/31/19 10:00 11/03/19 10:13 Santyl - TP 1 applic DAILY [facility] Administration Protocol Docusate Sodium 100 mg 10/31/19 22:44 11/02/19 22:49 Colace - PO 100 mg BID PRN Administration CONSTIPATION Furosemide 40 mg 11/01/19 17:30 11/03/19 10:09 Lasix - PO 40 mg DAILY [facility] Administration Heparin Sodium (Porcine) 5,000 unit 10/31/19 06:00 11/03/19 06:16 Heparin - SQ 5,000 unit TID [facility] Administration Ceftriaxone Sodium 2 gm/ 100 mls @ 100 mls/hr 10/31/19 12:00 11/03/19 10:12 Dextrose IVPB 100 mls/hr DAILY [facility] Administration Protocol Insulin Aspart 1 vial 10/31/19 22:45 11/03/19 12:14 Novolog Vial Sliding Scale - SQ 12 units Q4H [facility] Administration Protocol Insulin Detemir 40 units 11/01/19 07:00 11/03/19 06:16 Levemir Vial SQ 40 units AM [facility] Administration Insulin Detemir 20 units 11/01/19 22:00 11/02/19 22:50 Levemir Vial SQ 20 units HS [facility] Administration Isosorbide Mononitrate 30 mg 10/31/19 10:00 11/03/19 10:10 Imdur - PO 30 mg DAILY [facility] Administration Losartan Potassium 50 mg 10/31/19 10:00 11/03/19 10:10 Cozaar - PO 50 mg DAILY [facility] Administration Magnesium Oxide 400 mg 11/03/19 14:15 Mag-Ox - PO DAILY [facility] Morphine Sulfate 4 mg 10/31/19 14:33 11/03/19 13:46 Morphine Sulfate IVPUSH 4 mg Q6H PRN Administration PAIN LEVEL 6-10 Ondansetron HCl 4 mg 10/31/19 14:34 10/31/19 18:19 Zofran Odt - SL 4 mg Q8H PRN Administration NAUSEA AND/OR VOMITING Pantoprazole Sodium 40 mg 11/01/19 10:00 11/03/19 10:10 Protonix - PO 40 mg DAILY [facility] Administration Impression 1. CKD 2. hx Inguinal lymphadenopathy 3. bilateral foot ulcers/pain 4. DM 5. HTN 6. DFU Plan - replace mag - cont lasix - volume status improved - repeat labs in am - avoid nsaids - avoid nephrotoxins
--- NOTE | 2019-11-03 14:44 | PN ---
Progress Note, Physician Chief Complaint: patient seen and examined - Current Medication List Current Medications: Active Medications Atorvastatin Calcium 10 mg/ (Atorvastatin Calcium 20 mg) 30 mg PO HS [facility] Last Admin: 11/02/19 22:48 Dose: 30 mg Collagenase (Santyl -) 1 applic TP DAILY [facility]; Protocol Last Admin: 11/03/19 10:13 Dose: 1 applic Docusate Sodium (Colace -) 100 mg PO BID PRN PRN Reason: CONSTIPATION Last Admin: 11/02/19 22:49 Dose: 100 mg Furosemide (Lasix -) 40 mg PO DAILY [facility] Last Admin: 11/03/19 10:09 Dose: 40 mg Heparin Sodium (Porcine) (Heparin -) 5,000 unit SQ TID [facility] Last Admin: 11/03/19 06:16 Dose: 5,000 unit Ceftriaxone Sodium 2 gm/ (Dextrose) 100 mls @ 100 mls/hr IVPB DAILY [facility]; Protocol Last Admin: 11/03/19 10:12 Dose: 100 mls/hr Insulin Aspart (Novolog Vial Sliding Scale -) 1 vial SQ Q4H [facility]; Protocol Last Admin: 11/03/19 12:14 Dose: 12 units Insulin Detemir (Levemir Vial) 40 units SQ AM [facility] Last Admin: 11/03/19 06:16 Dose: 40 units Insulin Detemir (Levemir Vial) 20 units SQ HS [facility] Last Admin: 11/02/19 22:50 Dose: 20 units Isosorbide Mononitrate (Imdur -) 30 mg PO DAILY [facility] Last Admin: 11/03/19 10:10 Dose: 30 mg Losartan Potassium (Cozaar -) 50 mg PO DAILY [facility] Last Admin: 11/03/19 10:10 Dose: 50 mg Magnesium Oxide (Mag-Ox -) 400 mg PO DAILY [facility] Morphine Sulfate (Morphine Sulfate) 4 mg IVPUSH Q6H PRN PRN Reason: PAIN LEVEL 6-10 Last Admin: 11/03/19 13:46 Dose: 4 mg Ondansetron HCl (Zofran Odt -) 4 mg SL Q8H PRN PRN Reason: NAUSEA AND/OR VOMITING Last Admin: 10/31/19 18:19 Dose: 4 mg Pantoprazole Sodium (Protonix -) 40 mg PO DAILY [facility] Last Admin: 11/03/19 10:10 Dose: 40 mg - Objective Vital Signs: Vital Signs Temperature 98.3 F 12/05/19 14:32 Pulse Rate 93 H 11/03/19 14:32 Respiratory Rate 18 11/03/19 14:32 Blood Pressure 145/98 11/03/19 14:32 O2 Sat by Pulse Oximetry (%) 96 11/03/19 08:49 Constitutional: Yes: Calm Cardiovascular: Yes: Regular Rate and Rhythm, S1, S2 Respiratory: Yes: CTA Bilaterally Gastrointestinal: Yes: Normal Bowel Sounds, Soft Edema: Yes Wound/Incision: Yes: Other (lower extremites feet wrapped) Labs: CBC, BMP 11/01/19 07:55 11/03/19 06:40 Problem List - Problems (1) Cellulitis of foot Assessment/Plan: MRI no osteo on iv abx Microbiology 10/31/19 13:35 Foot - Left Gram Stain - Final 10/31/19 13:35 Foot - Left Wound Culture - Preliminary Strep Agalactiae Group B Staphylococcus Latex Coag Pos on iv rocpehin Code(s): L03.119 - CELLULITIS OF UNSPECIFIED PART OF LIMB (2) Leg edema Assessment/Plan: on lasix renal function continue to monitor Code(s): R60.0 - LOCALIZED EDEMA (3) Diabetes Assessment/Plan: on insulin bgm noted am levemir dose increase Code(s): E11.9 - TYPE 2 DIABETES MELLITUS WITHOUT COMPLICATIONS Qualifiers: Diabetes mellitus type: type 2 (4) Hypomagnesemia Assessment/Plan: magnesium repleted will check in AM Code(s): E83.42 - HYPOMAGNESEMIA
[2019-11-03] MEDS: MAGNESIUM OXIDE 400 MG TABLET (FP) PO SCH (15:17)
--- NOTE | 2019-11-03 15:58 | PN ---
Progress Note (short form) - Note Progress Note: FUV b/l feet. vss MRI+om right, +resolving cellulitis left foot, grade 1-2 wound left foot, - drainage b/l, wbc=7.9 grade 2 wound left 1st mpj improved cellulitis grade1-2 wound right om right Patient bought down to wound care in a stretcher. Consented to wound biopsy right foot. Betadine prep right foot plantar aspect. Wound biopsy done under sterile technique using a 4mm punch biopsy of wound right foot. Specimen sent to pathology. Surgicel dressing applied. Debridement of left wound also done under sterile technique. Betadine dressing b/l feet. Will follow. Abx as per ID. HBO consult ordered.
[2019-11-03] MEDS ORDERED: ATORVASTATIN CA 20 MG TABLET (FP) ONE (22:12)
[2019-11-03] MEDS ORDERED: ATORVASTATIN CA 10 MG TABLET (FP) ONE (22:12)
[2019-11-03] MEDS: ATORVASTATIN CA PO SCH (22:21)
[2019-11-03] MEDS: DOCUSATE SODIUM 100 MG CAPSULE (FP) PO PRN (22:22)
[2019-11-04] MEDS: INSULIN SLIDING SCALE (NOVOLOG) 1 VIAL SQ SCH ×6 (03:33→22:21)
[2019-11-04] MEDS: HEPARIN NA (PORCINE) 5,000 UNITS/ML 1ML VIAL SQ SCH ×3 (06:18→21:25)
[2019-11-04] MEDS: INSULIN (LEVEMIR) 100 UNITS/ML UNITS SQ SCH ×2 (06:19→21:22)
[2019-11-04 08:25] LABS: BASO % 1.7 % (0-2.0); EOS % 6.4 % (0-4.5); HEMATOCRIT 40.6 % (35.4-49); HEMOGLOBIN 13.7 GM/dL (11.7-16.9); LYMPH % 19.5 % (8-40); MCH 28.6 pg (25.7-33.7); MCHC 33.8 g/dl (32.0-35.9); MEAN CELL VOLUME 84.7 fl (80-96); MONO % 14.6 % (3.8-10.2); NEUT % 57.8 % (42.8-82.8); PLATELET COUNT 261 K/MM3 (134-434); WHITE BLOOD COUNT 5.1 K/mm3 (4.0-10.0)
[2019-11-04 08:43] LABS: ALBUMIN 2.5 g/dl (3.4-5.0); BILIRUBIN,TOTAL 0.3 mg/dL (0.2-1); BLOOD UREA NITROGEN 30.2 mg/dL (7-18); CALCIUM 8.7 mg/dL (8.5-10.1); CREATININE 2.4 mg/dL (0.55-1.3); MAGNESIUM 1.7 mg/dL (1.8-2.4); TOT PROT 6.7 g/dl (6.4-8.2)
[2019-11-04] MEDS ORDERED: DEXTROSE 5%-WATER 100 ML IVPB ONE (09:47)
[2019-11-04] MEDS: LOSARTAN POTASSIUM 50 MG TABLET (FP) PO SCH (09:54)
[2019-11-04] MEDS: CEFTRIAXONE 2 GM in DEXTROSE 5%-WATER 100 ML IVPB SCH (09:54)
[2019-11-04] MEDS: MAGNESIUM OXIDE 400 MG TABLET (FP) PO SCH (09:55)
[2019-11-04] MEDS: FUROSEMIDE 40 MG TABLET (FP) PO SCH (09:55)
[2019-11-04] MEDS: ISOSORBIDE MONONITRATE 30 MG TAB.SR.24H (FP) PO SCH (09:55)
[2019-11-04] MEDS: PANTOPRAZOLE 40 MG TABLET (FP) PO SCH (09:55)
--- NOTE | 2019-11-04 10:52 | PN ---
Progress Note, Physician Chief Complaint: Sepsis Left Foot Cellulitis Diabetic Foot Ulcer History of Present Illness: Previous notes and events reviewed awake and alert NAD MRI of R foot positive for OM sts pain is better to b/l feet wound culture L foot positive - Current Medication List Current Medications: Active Medications Atorvastatin Calcium 10 mg/ (Atorvastatin Calcium 20 mg) 30 mg PO HS [facility] Last Admin: 11/03/19 22:21 Dose: 30 mg Docusate Sodium (Colace -) 100 mg PO BID PRN PRN Reason: CONSTIPATION Last Admin: 11/03/19 22:22 Dose: 100 mg Furosemide (Lasix -) 40 mg PO DAILY [facility] Last Admin: 11/04/19 09:55 Dose: 40 mg Heparin Sodium (Porcine) (Heparin -) 5,000 unit SQ TID [facility] Last Admin: 11/04/19 06:18 Dose: 5,000 unit Ceftriaxone Sodium 2 gm/ (Dextrose) 100 mls @ 100 mls/hr IVPB DAILY [facility]; Protocol Last Admin: 11/04/19 09:54 Dose: 100 mls/hr Insulin Aspart (Novolog Vial Sliding Scale -) 1 vial SQ Q4H [facility]; Protocol Last Admin: 11/04/19 06:18 Dose: 10 units Insulin Detemir (Levemir Vial) 20 units SQ HS [facility] Last Admin: 11/03/19 22:22 Dose: 20 units Insulin Detemir (Levemir Vial) 45 units SQ AM [facility] Last Admin: 11/04/19 06:19 Dose: 45 units Isosorbide Mononitrate (Imdur -) 30 mg PO DAILY [facility] Last Admin: 11/04/19 09:55 Dose: 30 mg Losartan Potassium (Cozaar -) 50 mg PO DAILY [facility] Last Admin: 11/04/19 09:54 Dose: 50 mg Magnesium Oxide (Mag-Ox -) 400 mg PO DAILY [facility] Last Admin: 11/04/19 09:55 Dose: 400 mg Morphine Sulfate (Morphine Sulfate) 4 mg IVPUSH Q6H PRN PRN Reason: PAIN LEVEL 6-10 Last Admin: 11/03/19 22:23 Dose: 4 mg Ondansetron HCl (Zofran Odt -) 4 mg SL Q8H PRN PRN Reason: NAUSEA AND/OR VOMITING Last Admin: 10/31/19 18:19 Dose: 4 mg Pantoprazole Sodium (Protonix -) 40 mg PO DAILY [facility] Last Admin: 11/04/19 09:55 Dose: 40 mg - Objective Vital Signs: Vital Signs Temperature 98.6 F 11/04/19 06:45 Pulse Rate 77 11/04/19 06:45 Respiratory Rate 20 11/04/19 06:45 Blood Pressure 150/94 11/04/19 06:45 O2 Sat by Pulse Oximetry (%) 96 11/03/19 21:00 Constitutional: Yes: No Distress, Calm Eyes: Yes: Conjunctiva Clear HENT: Yes: Atraumatic Cardiovascular: Yes: Regular Rate and Rhythm Respiratory: Yes: Regular, CTA Bilaterally Gastrointestinal: Yes: Normal Bowel Sounds, Soft Musculoskeletal: Yes: WNL Extremities: Yes: WNL Edema: No Wound/Incision: Yes: Dressing Dry and Intact Neurological: Yes: Alert, Oriented Psychiatric: Yes: Alert, Oriented Labs: CBC, BMP 11/04/19 07:22 11/04/19 07:22 Microbiology 10/31/19 13:35 Foot - Left Gram Stain - Final 10/31/19 13:35 Foot - Left Wound Culture - Final Strep Agalactiae Group B Staphylococcus Aureus 10/30/19 19:10 Blood - Peripheral Venous Blood Culture - Preliminary NO GROWTH OBTAINED AFTER 96 HOURS, INCUBATION TO CONTINUE FOR 1 DAYS. 10/30/19 19:10 Blood - Peripheral Venous Blood Culture - Preliminary NO GROWTH OBTAINED AFTER 96 HOURS, INCUBATION TO CONTINUE FOR 1 DAYS. Problem List - Problems (1) [id number] kidney injury Assessment/Plan: -BUN/Cr 30.2/2.4 -monitor Renal function -Renal Consult Code(s): N17.9 - ACUTE KIDNEY FAILURE, UNSPECIFIED; N18.9 - CHRONIC KIDNEY DISEASE, UNSPECIFIED (2) Cellulitis of foot Assessment/Plan: -ID and Podiatry on board -no leukocytosis -afebrile -wound culture positive -BC neg -Ceftriaxone -R foot xray shows osteoarthritic findings in the toes, bunion formation by the first MTP joint with possible erosive changes suggestive of gout and extensive osteoarthritic changes in the interphalangeal joint of the great toe with some erosive changes, calcaneal spurring, arthritic changes seen in the tarsal bone -L foot xray extensive osteoarthritic findings -R foot MRI shows thickening of the subcutaneous tissue with possible ulceration on the plantar aspect of the foot below the second, third, and fourth metatarsophalngeal joint, suspicious finding of early osteomyelitis of the distal aspect of the third metatarsal bone with minimal bone marrow edema -L foot MRI shows soft tissue swelling dorsal to the left foot but predominantly surrounding the medial aspect great toe from the midmetatarsal bone to the tip of the toe, swelling is more prominent on the medial aspect of the distal interphalangeal joint with subarachnoid degenerative cyst of the base of distal phalanx, findings compatible with cellulitis, in the absence of bone marrow edema within the distal phalanx the findings are less likely related to osteomyelitis -ESR 78, CRP 6.8 -daily dressing changes -pain control -wound biopsy of R foot done by podiatry -will need PICC line placement for long-term antibiotics Code(s): L03.119 - CELLULITIS OF UNSPECIFIED PART OF LIMB (3) Diabetic foot ulcer Assessment/Plan: -ID and Podiatry on board -no leukocytosis -afebrile -wound culture positive -BC neg -Ceftriaxone -R foot xray shows osteoarthritic findings in the toes, bunion formation by the first MTP joint with possible erosive changes suggestive of gout and extensive osteoarthritic changes in the interphalangeal joint of the great toe with some erosive changes, calcaneal spurring, arthritic changes seen in the tarsal bone -L foot xray extensive osteoarthritic findings -ESR 78, CRP 6.8 -daily dressing changes -pain control -R foot MRI shows thickening of the subcutaneous tissue with possible ulceration on the plantar aspect of the foot below the second, third, and fourth metatarsophalngeal joint, suspicious finding of early osteomyelitis of the distal aspect of the third metatarsal bone with minimal bone marrow edema -L foot MRI shows soft tissue swelling dorsal to the left foot but predominantly surrounding the medial aspect great toe from the midmetatarsal bone to the tip of the toe, swelling is more prominent on the medial aspect of the distal interphalangeal joint with subarachnoid degenerative cyst of the base of distal phalanx, findings compatible with cellulitis, in the absence of bone marrow edema within the distal phalanx the findings are less likely related to osteomyelitis -wound biopsy done by podiatry Code(s): E11.621 - TYPE 2 DIABETES MELLITUS WITH FOOT ULCER; L97.509 - NON- PRESSURE CHRONIC ULCER OTH PRT UNSP FOOT W UNSP SEVERITY Qualifiers: Diabetic foot ulcer location: unspecified part of foot Diabetes mellitus type: type 1 Laterality: unspecified laterality Non-pressure ulcer stage: unspecified non-pressure ulcer stage Qualified Code(s): E10.621 - Type 1 diabetes mellitus with foot ulcer; L97.509 - Non-pressure chronic ulcer of other part of unspecified foot with unspecified severity (4) GERD (gastroesophageal reflux disease) Assessment/Plan: -Pantoprazole Code(s): K21.9 - GASTRO-ESOPHAGEAL REFLUX DISEASE WITHOUT ESOPHAGITIS (5) HLD (hyperlipidemia) Assessment/Plan: -Atorvastatin Code(s): E78.5 - HYPERLIPIDEMIA, UNSPECIFIED (6) Diabetes mellitus, insulin dependent (IDDM), uncontrolled Assessment/Plan: -BGM ACHS -ISS -HgA1c 9.2% -Insulin pump -Endocrinology consult -diabetic/low Na diet Code(s): E10.65 - TYPE 1 DIABETES MELLITUS WITH HYPERGLYCEMIA (7) Hypertension Assessment/Plan: -Imdur -low Na/diabetic diet Code(s): I10 - ESSENTIAL (PRIMARY) HYPERTENSION Qualifiers: (8) Sepsis Assessment/Plan: -ID on board -no leukocytosis -afebrile -Ceftriaxone -wound culture positive -BC neg -R foot MRI shows early OM Code(s): A41.9 - SEPSIS, UNSPECIFIED ORGANISM Qualifiers: Sepsis type: sepsis due to unspecified organism Qualified Code(s): A41.9 - Sepsis, unspecified organism Assessment/Plan see problem list dvt ppx will need PICC line placement for [facility] antibiotics
[2019-11-04] MEDS: morphine SULFATE 4 MG/ML VIAL IVPUSH PRN ×2 (13:51→23:02)
--- NOTE | 2019-11-04 13:52 | PN ---
Progress Note (short form) - Note Progress Note: FUV b/l feet. vss +resolving cellulitis left foot, wound right foot granulating biopsy site, grade 2 wound left 1st mpj improving cellulitis grade1-2 wound right om right Maybe dc from podiatry standpoint to follow up in wound care out patient. Rest as per team. Will start HBO when outpatient. Betadine dressing both feet.
--- NOTE | 2019-11-04 15:02 | PN ---
Progress Note, Physician History of Present Illness: REPORTS LESS L FOOT AND LE PAIN AFEBRILE WBC IMPROVED WNL CR IMPROVED BC (-) WOUND C/S GRP B STREP,MSSA - Current Medication List Current Medications: Active Medications Atorvastatin Calcium 10 mg/ (Atorvastatin Calcium 20 mg) 30 mg PO HS [facility] Last Admin: 11/03/19 22:21 Dose: 30 mg Docusate Sodium (Colace -) 100 mg PO BID PRN PRN Reason: CONSTIPATION Last Admin: 11/03/19 22:22 Dose: 100 mg Furosemide (Lasix -) 40 mg PO DAILY [facility] Last Admin: 11/04/19 09:55 Dose: 40 mg Heparin Sodium (Porcine) (Heparin -) 5,000 unit SQ TID [facility] Last Admin: 11/04/19 13:45 Dose: 5,000 unit Ceftriaxone Sodium 2 gm/ (Dextrose) 100 mls @ 100 mls/hr IVPB DAILY [facility]; Protocol Last Admin: 11/04/19 09:54 Dose: 100 mls/hr Insulin Aspart (Novolog Vial Sliding Scale -) 1 vial SQ Q4H [facility]; Protocol Last Admin: 11/04/19 12:16 Dose: 13 units Insulin Detemir (Levemir Vial) 20 units SQ HS [facility] Last Admin: 11/03/19 22:22 Dose: 20 units Insulin Detemir (Levemir Vial) 45 units SQ AM [facility] Last Admin: 11/04/19 06:19 Dose: 45 units Isosorbide Mononitrate (Imdur -) 30 mg PO DAILY [facility] Last Admin: 11/04/19 09:55 Dose: 30 mg Losartan Potassium (Cozaar -) 50 mg PO DAILY [facility] Last Admin: 11/04/19 09:54 Dose: 50 mg Magnesium Oxide (Mag-Ox -) 400 mg PO DAILY [facility] Last Admin: 11/04/19 09:55 Dose: 400 mg Morphine Sulfate (Morphine Sulfate) 4 mg IVPUSH Q6H PRN PRN Reason: PAIN LEVEL 6-10 Last Admin: 11/04/19 13:51 Dose: 4 mg Ondansetron HCl (Zofran Odt -) 4 mg SL Q8H PRN PRN Reason: NAUSEA AND/OR VOMITING Last Admin: 10/31/19 18:19 Dose: 4 mg Pantoprazole Sodium (Protonix -) 40 mg PO DAILY [facility] Last Admin: 11/04/19 09:55 Dose: 40 mg - Objective Vital Signs: Vital Signs Temperature 98.6 F 11/04/19 10:00 Pulse Rate 84 11/04/19 10:00 Respiratory Rate 20 11/04/19 10:00 Blood Pressure 145/92 11/04/19 10:00 O2 Sat by Pulse Oximetry (%) 95 11/04/19 09:00 Constitutional: Yes: No Distress Eyes: Yes: Conjunctiva Clear Cardiovascular: Yes: Regular Rate and Rhythm, S1, S2 Respiratory: Yes: CTA Bilaterally Gastrointestinal: Yes: Normal Bowel Sounds, Soft. No: Tenderness Extremities: Yes: Other (DRY R PLANTAR ULCER; PERSISTANT ERYTHEMA MEDIAL / DORSAL L FOOT) Labs: CBC, BMP 11/04/19 07:22 11/04/19 07:22 Assessment/Plan CELLULITIS MRI + OSTEOMYELITIS R FOOT DIABETES MELLITUS AZOTEMIA MRI READING NOTED SUBSTITUTE CEFAZOLIN 2GM Q8H X 6 WEEKS
--- NOTE | 2019-11-04 15:55 | PN ---
Progress Note, Physician History of Present Illness: Pt seen and examined at bedside. he is awake and alert. he feels that edema is improved. - Current Medication List Current Medications: Active Medications Atorvastatin Calcium 10 mg/ (Atorvastatin Calcium 20 mg) 30 mg PO HS [facility] [place] Last Admin: 11/03/19 22:21 Dose: 30 mg Docusate Sodium (Colace -) 100 mg PO BID PRN PRN Reason: CONSTIPATION Last Admin: 11/03/19 22:22 Dose: 100 mg Furosemide (Lasix -) 40 mg PO DAILY [facility] [place] Last Admin: 11/04/19 09:55 Dose: 40 mg Heparin Sodium (Porcine) (Heparin -) 5,000 unit SQ TID [facility] [place] Last Admin: 11/04/19 13:45 Dose: 5,000 unit Cefazolin Sodium 1 gm/ (Dextrose) 50 mls @ 100 mls/hr IVPB Q8H-IV [place] Insulin Aspart (Novolog Vial Sliding Scale -) 1 vial SQ Q4H [facility] [place]; Protocol Last Admin: 11/04/19 12:16 Dose: 13 units Insulin Detemir (Levemir Vial) 20 units SQ HS [facility] [place] Last Admin: 11/03/19 22:22 Dose: 20 units Insulin Detemir (Levemir Vial) 45 units SQ AM [facility] [place] Last Admin: 11/04/19 06:19 Dose: 45 units Isosorbide Mononitrate (Imdur -) 30 mg PO DAILY [facility] [place] Last Admin: 11/04/19 09:55 Dose: 30 mg Losartan Potassium (Cozaar -) 50 mg PO DAILY [facility] [place] Last Admin: 11/04/19 09:54 Dose: 50 mg Magnesium Oxide (Mag-Ox -) 400 mg PO DAILY [facility] [place] Last Admin: 11/04/19 09:55 Dose: 400 mg Morphine Sulfate (Morphine Sulfate) 4 mg IVPUSH Q6H PRN PRN Reason: PAIN LEVEL 6-10 Last Admin: 11/04/19 13:51 Dose: 4 mg Ondansetron HCl (Zofran Odt -) 4 mg SL Q8H PRN PRN Reason: NAUSEA AND/OR VOMITING Last Admin: 10/31/19 18:19 Dose: 4 mg Pantoprazole Sodium (Protonix -) 40 mg PO DAILY [facility] [place] Last Admin: 11/04/19 09:55 Dose: 40 mg - Objective Vital Signs: Vital Signs Temperature 97.9 F 11/04/19 15:04 Pulse Rate 84 11/04/19 15:04 Respiratory Rate 20 11/04/19 15:04 Blood Pressure 142/89 11/04/19 15:04 O2 Sat by Pulse Oximetry (%) 95 11/04/19 09:00 Constitutional: Yes: Calm Eyes: Yes: Conjunctiva Clear HENT: Yes: Atraumatic Neck: Yes: Supple Cardiovascular: Yes: S1, S2 Respiratory: Yes: CTA Bilaterally Gastrointestinal: Yes: Soft Genitourinary: Yes: WNL Musculoskeletal: Yes: WNL Edema: Yes Edema: LLE: Trace, RLE: Trace Wound/Incision: Yes: Dressing Dry and Intact Neurological: Yes: Oriented Labs: CBC, BMP 11/04/19 07:22 11/04/19 07:22 Problem List - Problems (1) Acute kidney injury Code(s): N17.9 - ACUTE KIDNEY FAILURE, UNSPECIFIED (2) Cellulitis of foot Code(s): L03.119 - CELLULITIS OF UNSPECIFIED PART OF LIMB (3) GERD (gastroesophageal reflux disease) Code(s): K21.9 - GASTRO-ESOPHAGEAL REFLUX DISEASE WITHOUT ESOPHAGITIS (4) CKD (chronic kidney disease) Code(s): N18.9 - CHRONIC KIDNEY DISEASE, UNSPECIFIED Assessment/Plan Current Medications Generic Name Dose Route Start Last Admin Trade Name Freq PRN Reason Stop Dose Admin Atorvastatin Calcium 10 mg/ 30 mg 10/31/19 22:00 11/03/19 22:21 Atorvastatin Calcium 20 mg PO 30 mg HS [place] Administration Docusate Sodium 100 mg 10/31/19 22:44 11/03/19 22:22 Colace - PO 100 mg BID PRN Administration CONSTIPATION Furosemide 40 mg 11/01/19 17:30 11/04/19 09:55 Lasix - PO 40 mg DAILY [place] Administration Heparin Sodium (Porcine) 5,000 unit 10/31/19 06:00 11/04/19 13:45 Heparin - SQ 5,000 unit TID [place] Administration Cefazolin Sodium 1 gm/ 50 mls @ 100 mls/hr 11/04/19 15:15 Dextrose IVPB Q8H-IV [place] Insulin Aspart 1 vial 10/31/19 22:45 11/04/19 12:16 Novolog Vial Sliding Scale - SQ 13 units Q4H [place] Administration Protocol Insulin Detemir 20 units 11/01/19 22:00 11/03/19 22:22 Levemir Vial SQ 20 units HS [place] Administration Insulin Detemir 45 units 11/04/19 07:00 11/04/19 06:19 Levemir Vial SQ 45 units AM [place] Administration Isosorbide Mononitrate 30 mg 10/31/19 10:00 11/04/19 09:55 Imdur - PO 30 mg DAILY [place] Administration Losartan Potassium 50 mg 10/31/19 10:00 11/04/19 09:54 Cozaar - PO 50 mg DAILY [place] Administration Magnesium Oxide 400 mg 11/03/19 14:15 11/04/19 09:55 Mag-Ox - PO 400 mg DAILY [place] Administration Morphine Sulfate 4 mg 10/31/19 14:33 11/04/19 13:51 Morphine Sulfate IVPUSH 4 mg Q6H PRN Administration PAIN LEVEL 6-10 Ondansetron HCl 4 mg 10/31/19 14:34 10/31/19 18:19 Zofran Odt - SL 4 mg Q8H PRN Administration NAUSEA AND/OR VOMITING Pantoprazole Sodium 40 mg 11/01/19 10:00 11/04/19 09:55 Protonix - PO 40 mg DAILY [place] Administration Impression 1. CKD 2. hx Inguinal lymphadenopathy 3. bilateral foot ulcers/pain 4. DM 5. HTN 6. DFU Plan - cont lasix, can monitor on 20 mg - avoid nsaids - ckd stable - volume status improved - repeat labs in am - avoid nephrotoxins
[2019-11-04] MEDS ORDERED: ceFAZolin SODIUM 1 GM VIAL ONE ×2 (16:26→18:20)
[2019-11-04] MEDS ORDERED: DEXTROSE 5%-WATER - 50 ML IVPB ONE ×2 (16:26→18:20)
[2019-11-04] MEDS: CEFAZOLIN 1 GM in DEXTROSE 5%-WATER - 50 ML IVPB SCH ×2 (16:31→18:32)
[2019-11-04] MEDS ORDERED: INSULIN (NOVOLOG) ASPART 100 UNITS/ML 10ML VIAL ONE (18:43)
[2019-11-04] MEDS ORDERED: ATORVASTATIN CA 20 MG TABLET (FP) ONE (21:13)
[2019-11-04] MEDS ORDERED: ATORVASTATIN CA 10 MG TABLET (FP) ONE (21:14)
[2019-11-04] MEDS: ATORVASTATIN CA PO SCH (21:25)
[2019-11-04] MEDS: DOCUSATE SODIUM 100 MG CAPSULE (FP) PO PRN (21:27)
[2019-11-05] MEDS ORDERED: DEXTROSE 5%-WATER - 50 ML IVPB ONE ×3 (01:43→17:39)
[2019-11-05] MEDS ORDERED: ceFAZolin SODIUM 1 GM VIAL ONE ×3 (01:43→17:39)
[2019-11-05] MEDS: CEFAZOLIN 1 GM in DEXTROSE 5%-WATER - 50 ML IVPB SCH ×3 (01:46→18:27)
[2019-11-05] MEDS: INSULIN SLIDING SCALE (NOVOLOG) 1 VIAL SQ SCH ×6 (03:16→22:25)
[2019-11-05] MEDS: HEPARIN NA (PORCINE) 5,000 UNITS/ML 1ML VIAL SQ SCH ×3 (06:46→22:23)
[2019-11-05] MEDS: INSULIN (LEVEMIR) 100 UNITS/ML UNITS SQ SCH ×2 (06:51→22:24)
[2019-11-05 08:04] LABS: HEMATOCRIT 39.4 % (35.4-49); HEMOGLOBIN 13.6 GM/dL (11.7-16.9); MCH 29.2 pg (25.7-33.7); MCHC 34.5 g/dl (32.0-35.9); MEAN CELL VOLUME 84.8 fl (80-96); MEAN PLT VOLUME 7.9 fl (7.5-11.1); PLATELET COUNT 265 K/MM3 (134-434); RBC 4.65 M/mm3 (4.00-5.60); RDW 12.8 % (11.9-15.9)
[2019-11-05 08:43] LABS: ALBUMIN 2.5 g/dl (3.4-5.0); BILIRUBIN,TOTAL 0.2 mg/dL (0.2-1); BLOOD UREA NITROGEN 34.6 mg/dL (7-18); CALCIUM 8.4 mg/dL (8.5-10.1); CREATININE 2.7 mg/dL (0.55-1.3); POTASSIUM 4.2 mmol/L (3.5-5.1); TOT PROT 6.6 g/dl (6.4-8.2)
[2019-11-05] MEDS: LOSARTAN POTASSIUM 50 MG TABLET (FP) PO SCH (10:04)
[2019-11-05] MEDS: MAGNESIUM OXIDE 400 MG TABLET (FP) PO SCH (10:05)
[2019-11-05] MEDS: ISOSORBIDE MONONITRATE 30 MG TAB.SR.24H (FP) PO SCH (10:06)
[2019-11-05] MEDS: PANTOPRAZOLE 40 MG TABLET (FP) PO SCH (10:06)
[2019-11-05] MEDS: FUROSEMIDE 20 MG TABLET (FP) PO SCH (10:06)
--- NOTE | 2019-11-05 10:51 | PN ---
Progress Note, Physician Chief Complaint: AWAKE ALERT FEELS GOOD OFFERS NO COMPLAINTS - Current Medication List Current Medications: Active Medications Atorvastatin Calcium 10 mg/ (Atorvastatin Calcium 20 mg) 30 mg PO HS [facility] Last Admin: 11/04/19 21:25 Dose: 30 mg Docusate Sodium (Colace -) 100 mg PO BID PRN PRN Reason: CONSTIPATION Last Admin: 11/04/19 21:27 Dose: 100 mg Furosemide (Lasix -) 20 mg PO DAILY [facility] Last Admin: 11/05/19 10:06 Dose: 20 mg Heparin Sodium (Porcine) (Heparin -) 5,000 unit SQ TID [facility] Last Admin: 11/05/19 06:46 Dose: 5,000 unit Cefazolin Sodium 1 gm/ (Dextrose) 50 mls @ 100 mls/hr IVPB Q8H-IV [facility] Last Admin: 11/05/19 10:04 Dose: 100 mls/hr Insulin Aspart (Novolog Vial Sliding Scale -) 1 vial SQ Q4H [facility]; Protocol Last Admin: 11/05/19 10:14 Dose: 12 units Insulin Detemir (Levemir Vial) 20 units SQ HS [facility] Last Admin: 11/04/19 21:22 Dose: 20 units Insulin Detemir (Levemir Vial) 45 units SQ AM [facility] Last Admin: 11/05/19 06:51 Dose: 45 units Isosorbide Mononitrate (Imdur -) 30 mg PO DAILY [facility] Last Admin: 11/05/19 10:06 Dose: 30 mg Losartan Potassium (Cozaar -) 50 mg PO DAILY [facility] Last Admin: 11/05/19 10:04 Dose: 50 mg Magnesium Oxide (Mag-Ox -) 400 mg PO DAILY [facility] Last Admin: 11/05/19 10:05 Dose: 400 mg Morphine Sulfate (Morphine Sulfate) 4 mg IVPUSH Q6H PRN PRN Reason: PAIN LEVEL 6-10 Last Admin: 11/04/19 23:02 Dose: 4 mg Ondansetron HCl (Zofran Odt -) 4 mg SL Q8H PRN PRN Reason: NAUSEA AND/OR VOMITING Last Admin: 10/31/19 18:19 Dose: 4 mg Pantoprazole Sodium (Protonix -) 40 mg PO DAILY [facility] Last Admin: 11/05/19 10:06 Dose: 40 mg - Objective Vital Signs: Vital Signs Temperature 98.2 F 11/05/19 06:00 Pulse Rate 75 11/05/19 06:00 Respiratory Rate 20 11/05/19 06:00 Blood Pressure 126/90 11/04/19 22:00 O2 Sat by Pulse Oximetry (%) 99 11/04/19 19:59 Constitutional: Yes: No Distress Cardiovascular: Yes: Regular Rate and Rhythm Respiratory: Yes: WNL Gastrointestinal: Yes: WNL Genitourinary: Yes: WNL Musculoskeletal: Yes: Other Extremities: Yes: Deformity Wound/Incision: Yes: Dressing Dry and Intact (LEFT FOOT) Neurological: Yes: Loss of Sensation, Numbness, Pre-Existing Deficit, Other ...Motor Strength: LLE Psychiatric: Yes: WNL Labs: CBC, BMP 11/05/19 06:42 11/05/19 06:42 Problem List - Problems (1) Upzay-ep-vcfbtok kidney injury Code(s): N17.9 - ACUTE KIDNEY FAILURE, UNSPECIFIED; N18.9 - CHRONIC KIDNEY DISEASE, UNSPECIFIED (2) Cellulitis of foot Code(s): L03.119 - CELLULITIS OF UNSPECIFIED PART OF LIMB (3) Diabetes Code(s): E11.9 - TYPE 2 DIABETES MELLITUS WITHOUT COMPLICATIONS Qualifiers: Diabetes mellitus type: type 2 (4) Diabetic foot ulcer Code(s): E11.621 - TYPE 2 DIABETES MELLITUS WITH FOOT ULCER; L97.509 - NON- PRESSURE CHRONIC ULCER OTH PRT UNSP FOOT W UNSP SEVERITY Qualifiers: Diabetic foot ulcer location: unspecified part of foot Diabetes mellitus type: type 1 Laterality: unspecified laterality Non-pressure ulcer stage: unspecified non-pressure ulcer stage Qualified Code(s): E10.621 - Type 1 diabetes mellitus with foot ulcer; L97.509 - Non-pressure chronic ulcer of other part of unspecified foot with unspecified severity (5) GERD (gastroesophageal reflux disease) Code(s): K21.9 - GASTRO-ESOPHAGEAL REFLUX DISEASE WITHOUT ESOPHAGITIS (6) HLD (hyperlipidemia) Code(s): E78.5 - HYPERLIPIDEMIA, UNSPECIFIED (7) BPH (benign prostatic hyperplasia) Code(s): N40.0 - BENIGN PROSTATIC HYPERPLASIA WITHOUT LOWER URINRY TRACT SYMP (8) Diabetes mellitus, insulin dependent (IDDM), uncontrolled Code(s): E10.65 - TYPE 1 DIABETES MELLITUS WITH HYPERGLYCEMIA (9) Diabetic foot infection Code(s): E11.69 - TYPE 2 DIABETES MELLITUS WITH OTHER SPECIFIED COMPLICATION; L08.9 - LOCAL INFECTION OF THE SKIN AND SUBCUTANEOUS TISSUE, UNSP (10) Osteomyelitis Code(s): M86.9 - OSTEOMYELITIS, UNSPECIFIED Qualifiers: Osteomyelitis type: unspecified type Osteomyelitis location: foot Laterality: right Qualified Code(s): M86.9 - Osteomyelitis, unspecified Assessment/Plan AWAITING PICC LINE FOR IV ABX TREATMENT OF OSTEOMYELITIS BGM CHECKS SSI PT EVAL SNF VS HOME INFUSION OF ABX
[2019-11-05] MEDS ORDERED: oxyCODONE HCL 5 MG TABLET PO PRN (10:52)
--- NOTE | 2019-11-05 12:46 | PN ---
Progress Note, Physician History of Present Illness: REPORTS LESS L FOOT AND LE PAIN AFEBRILE WBC IMPROVED CR SL INCREASED BC (-) WOUND C/S GRP B STREP,MSSA - Current Medication List Current Medications: Active Medications Atorvastatin Calcium 10 mg/ (Atorvastatin Calcium 20 mg) 30 mg PO HS [facility] Last Admin: 11/04/19 21:25 Dose: 30 mg Docusate Sodium (Colace -) 100 mg PO BID PRN PRN Reason: CONSTIPATION Last Admin: 11/04/19 21:27 Dose: 100 mg Furosemide (Lasix -) 20 mg PO DAILY [facility] Last Admin: 11/05/19 10:06 Dose: 20 mg Heparin Sodium (Porcine) (Heparin -) 5,000 unit SQ TID [facility] Last Admin: 11/05/19 06:46 Dose: 5,000 unit Cefazolin Sodium 1 gm/ (Dextrose) 50 mls @ 100 mls/hr IVPB Q8H-IV [place] Last Admin: 11/05/19 10:04 Dose: 100 mls/hr Insulin Aspart (Novolog Vial Sliding Scale -) 1 vial SQ Q4H [facility]; Protocol Last Admin: 11/05/19 10:14 Dose: 12 units Insulin Detemir (Levemir Vial) 20 units SQ HS [facility] Last Admin: 11/04/19 21:22 Dose: 20 units Insulin Detemir (Levemir Vial) 45 units SQ AM [facility] Last Admin: 11/05/19 06:51 Dose: 45 units Isosorbide Mononitrate (Imdur -) 30 mg PO DAILY [facility] Last Admin: 11/05/19 10:06 Dose: 30 mg Losartan Potassium (Cozaar -) 50 mg PO DAILY [facility] Last Admin: 11/05/19 10:04 Dose: 50 mg Magnesium Oxide (Mag-Ox -) 400 mg PO DAILY [facility] Last Admin: 11/05/19 10:05 Dose: 400 mg Ondansetron HCl (Zofran Odt -) 4 mg SL Q8H PRN PRN Reason: NAUSEA AND/OR VOMITING Last Admin: 10/31/19 18:19 Dose: 4 mg Oxycodone HCl (Roxicodone -) 5 mg PO Q6H PRN PRN Reason: PAIN LEVEL 7 - 10 Pantoprazole Sodium (Protonix -) 40 mg PO DAILY [facility] Last Admin: 11/05/19 10:06 Dose: 40 mg - Objective Vital Signs: Vital Signs Temperature 98.2 F 11/05/19 06:00 Pulse Rate 75 11/05/19 06:00 Respiratory Rate 20 11/05/19 06:00 Blood Pressure 126/90 11/04/19 22:00 O2 Sat by Pulse Oximetry (%) 99 11/04/19 19:59 Constitutional: Yes: No Distress Eyes: Yes: Conjunctiva Clear Cardiovascular: Yes: Regular Rate and Rhythm, S1, S2 Respiratory: No: CTA Bilaterally Gastrointestinal: Yes: Normal Bowel Sounds, Soft. No: Tenderness Extremities: Yes: Other (DECREASED SWELLING L FOOT; + ERYTHEMA MEDIAL FOOT EXTENDING ACROSS BASE OF TOES) Labs: CBC, BMP 11/05/19 06:42 11/05/19 06:42 Assessment/Plan CELLULITIS MRI + OSTEOMYELITIS R FOOT DIABETES MELLITUS AZOTEMIA MRI READING NOTED CONTINUE CEFAZOLIN 2GM Q8H X 6 WEEKS
--- NOTE | 2019-11-05 14:37 | PN ---
Progress Note (short form) - Note Progress Note: ADDENDUM: I ALSO DISCUSSED IMPORTANCE OF WOUND CARE, EITHER AT SNF OR HOME AND FOLLOW UP WITH WOUND CENTER HERE AT [facility]. PODIATRY/VASC FOLLOW [facility] RENAL FOLLOW [facility] FOR CKD DIABETES CONTROLL AND EDUCATION, [facility] CALLED TO DISCUSS LOEWERIG HIS A1C FROM 9.2% TO A MORE ACCEPTABLE RANGE >8.0 Problem List - Problems (1) Kzude-am-npggmot kidney injury Code(s): N17.9 - ACUTE KIDNEY FAILURE, UNSPECIFIED; N18.9 - CHRONIC KIDNEY DISEASE, UNSPECIFIED (2) Cellulitis of foot Code(s): L03.119 - CELLULITIS OF UNSPECIFIED PART OF LIMB (3) Diabetes Code(s): E11.9 - TYPE 2 DIABETES MELLITUS WITHOUT COMPLICATIONS Qualifiers: Diabetes mellitus type: type 2 (4) Diabetic foot ulcer Code(s): E11.621 - TYPE 2 DIABETES MELLITUS WITH FOOT ULCER; L97.509 - NON- PRESSURE CHRONIC ULCER OTH PRT UNSP FOOT W UNSP SEVERITY Qualifiers: Diabetic foot ulcer location: unspecified part of foot Diabetes mellitus type: type 1 Laterality: unspecified laterality Non-pressure ulcer stage: unspecified non-pressure ulcer stage Qualified Code(s): E10.621 - Type 1 diabetes mellitus with foot ulcer; L97.509 - Non-pressure chronic ulcer of other part of unspecified foot with unspecified severity (5) GERD (gastroesophageal reflux disease) Code(s): K21.9 - GASTRO-ESOPHAGEAL REFLUX DISEASE WITHOUT ESOPHAGITIS (6) HLD (hyperlipidemia) Code(s): E78.5 - HYPERLIPIDEMIA, UNSPECIFIED (7) BPH (benign prostatic hyperplasia) Code(s): N40.0 - BENIGN PROSTATIC HYPERPLASIA WITHOUT LOWER URINRY TRACT SYMP (8) Diabetes mellitus, insulin dependent (IDDM), uncontrolled Code(s): E10.65 - TYPE 1 DIABETES MELLITUS WITH HYPERGLYCEMIA (9) Diabetic foot infection Code(s): E11.69 - TYPE 2 DIABETES MELLITUS WITH OTHER SPECIFIED COMPLICATION; L08.9 - LOCAL INFECTION OF THE SKIN AND SUBCUTANEOUS TISSUE, UNSP (10) Osteomyelitis Code(s): M86.9 - OSTEOMYELITIS, UNSPECIFIED Qualifiers: Osteomyelitis type: unspecified type Osteomyelitis location: foot Laterality: right Qualified Code(s): M86.9 - Osteomyelitis, unspecified
--- NOTE | 2019-11-05 14:40 | PN ---
Progress Note (short form) - Note Progress Note: FUV b/l feet. Awaiting picc line to go home. vss +resolving cellulitis left foot, wound right foot granulating biopsy site, grade 2 wound left 1st mpj improving cellulitis grade1-2 wound right om right Maybe dc from podiatry standpoint to follow up in wound care out patient. HBO when outpatient. Betadine dressing both feet. IVABX as per ID.
[2019-11-05] MEDS ORDERED: ATORVASTATIN CA 10 MG TABLET (FP) ONE (21:37)
[2019-11-05] MEDS ORDERED: ATORVASTATIN CA 20 MG TABLET (FP) ONE (21:37)
[2019-11-05] MEDS: ATORVASTATIN CA PO SCH (22:22)
--- NOTE | 2019-11-05 23:09 | PN ---
Progress Note, Physician Chief Complaint: foot infection aware need for tight sugar control with diet - Current Medication List Current Medications: Active Medications Atorvastatin Calcium 10 mg/ (Atorvastatin Calcium 20 mg) 30 mg PO HS [facility] Last Admin: 11/05/19 22:22 Dose: 30 mg Docusate Sodium (Colace -) 100 mg PO BID PRN PRN Reason: CONSTIPATION Last Admin: 11/04/19 21:27 Dose: 100 mg Furosemide (Lasix -) 20 mg PO DAILY [facility] Last Admin: 11/05/19 10:06 Dose: 20 mg Heparin Sodium (Porcine) (Heparin -) 5,000 unit SQ TID [facility] Last Admin: 11/05/19 22:23 Dose: 5,000 unit Cefazolin Sodium 1 gm/ (Dextrose) 50 mls @ 100 mls/hr IVPB Q8H-IV [facility] Last Admin: 11/05/19 18:27 Dose: 100 mls/hr Insulin Aspart (Novolog Vial Sliding Scale -) 1 vial SQ ACHS [facility]; Protocol Insulin Detemir (Levemir Vial) 65 units SQ AM [facility] Insulin Detemir (Levemir Vial) 30 units SQ HS [facility] Isosorbide Mononitrate (Imdur -) 30 mg PO DAILY [facility] Last Admin: 11/05/19 10:06 Dose: 30 mg Losartan Potassium (Cozaar -) 50 mg PO DAILY [facility] Last Admin: 11/05/19 10:04 Dose: 50 mg Magnesium Oxide (Mag-Ox -) 400 mg PO DAILY [facility] Last Admin: 11/05/19 10:05 Dose: 400 mg Ondansetron HCl (Zofran Odt -) 4 mg SL Q8H PRN PRN Reason: NAUSEA AND/OR VOMITING Last Admin: 10/31/19 18:19 Dose: 4 mg Oxycodone HCl (Roxicodone -) 5 mg PO Q6H PRN PRN Reason: PAIN LEVEL 7 - 10 Pantoprazole Sodium (Protonix -) 40 mg PO DAILY [facility] Last Admin: 11/05/19 10:06 Dose: 40 mg - Objective Vital Signs: Vital Signs Temperature 98.2 F 11/05/19 18:00 Pulse Rate 81 11/05/19 18:00 Respiratory Rate 20 11/05/19 18:00 Blood Pressure 136/83 11/05/19 18:00 O2 Sat by Pulse Oximetry (%) 98 11/05/19 09:00 Constitutional: Yes: Calm Eyes: Yes: EOM Intact HENT: Yes: Normocephalic Neck: Yes: Trachea Midline Cardiovascular: Yes: Regular Rate and Rhythm Respiratory: Yes: WNL Gastrointestinal: Yes: Normal Bowel Sounds ...Rectal Exam: Yes: Deferred Genitourinary: Yes: WNL Breast(s): Yes: WNL Musculoskeletal: Yes: Muscle Pain, Muscle Weakness Extremities: Yes: Delayed Capillary Refill Edema: No Wound/Incision: Yes: Dressing Dry and Intact, Draining Neurological: Yes: Alert, Oriented Labs: CBC, BMP 11/05/19 06:42 11/05/19 06:42 Problem List - Problems (1) Acute kidney injury Problems reviewed: Yes Code(s): N17.9 - ACUTE KIDNEY FAILURE, UNSPECIFIED (2) Nrrrz-ft-snxefem kidney injury Code(s): N17.9 - ACUTE KIDNEY FAILURE, UNSPECIFIED; N18.9 - CHRONIC KIDNEY DISEASE, UNSPECIFIED (3) Cellulitis of foot Code(s): L03.119 - CELLULITIS OF UNSPECIFIED PART OF LIMB (4) Diabetic foot ulcer Code(s): E11.621 - TYPE 2 DIABETES MELLITUS WITH FOOT ULCER; L97.509 - NON- PRESSURE CHRONIC ULCER OTH PRT UNSP FOOT W UNSP SEVERITY Qualifiers: Diabetic foot ulcer location: unspecified part of foot Diabetes mellitus type: type 1 Laterality: unspecified laterality Non-pressure ulcer stage: unspecified non-pressure ulcer stage Qualified Code(s): E10.621 - Type 1 diabetes mellitus with foot ulcer; L97.509 - Non-pressure chronic ulcer of other part of unspecified foot with unspecified severity (5) GERD (gastroesophageal reflux disease) Code(s): K21.9 - GASTRO-ESOPHAGEAL REFLUX DISEASE WITHOUT ESOPHAGITIS (6) HLD (hyperlipidemia) Code(s): E78.5 - HYPERLIPIDEMIA, UNSPECIFIED (7) Acid reflux Code(s): K21.9 - GASTRO-ESOPHAGEAL REFLUX DISEASE WITHOUT ESOPHAGITIS (8) BPH (benign prostatic hyperplasia) Code(s): N40.0 - BENIGN PROSTATIC HYPERPLASIA WITHOUT LOWER URINRY TRACT SYMP Assessment/Plan Current Active Problems Acute kidney injury (Acute) Jbjli-bt-ifjuhku kidney injury (Acute) Cellulitis of foot (Acute) Diabetes (Acute) Diabetic foot ulcer (Acute) GERD (gastroesophageal reflux disease) (Acute) HLD (hyperlipidemia) (Acute) Hypomagnesemia (Acute) Leg edema (Acute) Abnormal Lab Results 11/05/19 06:42 Sodium 135 L BUN 34.6 H Creatinine 2.7 H Random Glucose 171 H Calcium 8.4 L Albumin 2.5 L Laboratory Results - last 24 hr 11/05/19 11/05/19 11/05/19 03:10 06:42 06:42 WBC 7.0 RBC 4.65 Hgb 13.6 Hct 39.4 MCV 84.8 MCH 29.2 MCHC 34.5 RDW 12.8 Plt Count 265 MPV 7.9 Sodium 135 L Potassium 4.2 Chloride 99 Carbon Dioxide 28 Anion Gap 8 BUN 34.6 H Creatinine 2.7 H Est GFR (CKD-EPI)AfAm 30.69 Est GFR (CKD-EPI)NonAf 26.48 POC Glucometer 135 Random Glucose 171 H Calcium 8.4 L Total Bilirubin 0.2 AST 30 ALT 28 Alkaline Phosphatase 107 Total Protein 6.6 Albumin 2.5 L 11/05/19 11/05/19 11/05/19 06:44 10:12 14:53 WBC RBC Hgb Hct MCV MCH MCHC RDW Plt Count MPV Sodium Potassium Chloride Carbon Dioxide Anion Gap BUN Creatinine Est GFR (CKD-EPI)AfAm Est GFR (CKD-EPI)NonAf POC Glucometer 172 270 383 Random Glucose Calcium Total Bilirubin AST ALT Alkaline Phosphatase Total Protein Albumin 11/05/19 22:20 WBC RBC Hgb Hct MCV MCH MCHC RDW Plt Count MPV Sodium Potassium Chloride Carbon Dioxide Anion Gap BUN Creatinine Est GFR (CKD-EPI)AfAm Est GFR (CKD-EPI)NonAf POC Glucometer 332 Random Glucose Calcium Total Bilirubin AST ALT Alkaline Phosphatase Total Protein Albumin plan: bgm achs novolog scale increase to levemir dose 65 am levemir 30units hs will follow with hba1c outpatient iv ABX 6-8weeks hyperbaric o2
[2019-11-06] MEDS ORDERED: ceFAZolin SODIUM 1 GM VIAL ONE ×3 (02:11→17:14)
[2019-11-06] MEDS ORDERED: DEXTROSE 5%-WATER - 50 ML IVPB ONE ×3 (02:12→17:14)
[2019-11-06] MEDS: CEFAZOLIN 1 GM in DEXTROSE 5%-WATER - 50 ML IVPB SCH ×3 (02:17→17:17)
[2019-11-06] MEDS: HEPARIN NA (PORCINE) 5,000 UNITS/ML 1ML VIAL SQ SCH ×3 (06:18→21:43)
[2019-11-06] MEDS: INSULIN (LEVEMIR) 100 UNITS/ML UNITS SQ SCH ×2 (06:19→21:43)
[2019-11-06] MEDS: INSULIN SLIDING SCALE (NOVOLOG) 1 VIAL SQ SCH ×4 (06:20→21:44)
[2019-11-06] MEDS ORDERED: PT OWN MED DRAWER 7, Y5N ONE (06:27)
--- NOTE | 2019-11-06 11:11 | PN ---
Problem List - Problems (1) Kslfz-qd-xcmiels kidney injury Code(s): N17.9 - ACUTE KIDNEY FAILURE, UNSPECIFIED; N18.9 - CHRONIC KIDNEY DISEASE, UNSPECIFIED (2) Cellulitis of foot Code(s): L03.119 - CELLULITIS OF UNSPECIFIED PART OF LIMB (3) Diabetes Code(s): E11.9 - TYPE 2 DIABETES MELLITUS WITHOUT COMPLICATIONS Qualifiers: Diabetes mellitus type: type 2 (4) Diabetic foot ulcer Code(s): E11.621 - TYPE 2 DIABETES MELLITUS WITH FOOT ULCER; L97.509 - NON- PRESSURE CHRONIC ULCER OTH PRT UNSP FOOT W UNSP SEVERITY Qualifiers: Diabetic foot ulcer location: unspecified part of foot Diabetes mellitus type: type 1 Laterality: unspecified laterality Non-pressure ulcer stage: unspecified non-pressure ulcer stage Qualified Code(s): E10.621 - Type 1 diabetes mellitus with foot ulcer; L97.509 - Non-pressure chronic ulcer of other part of unspecified foot with unspecified severity (5) GERD (gastroesophageal reflux disease) Code(s): K21.9 - GASTRO-ESOPHAGEAL REFLUX DISEASE WITHOUT ESOPHAGITIS (6) HLD (hyperlipidemia) Code(s): E78.5 - HYPERLIPIDEMIA, UNSPECIFIED (7) BPH (benign prostatic hyperplasia) Code(s): N40.0 - BENIGN PROSTATIC HYPERPLASIA WITHOUT LOWER URINRY TRACT SYMP (8) Diabetes mellitus, insulin dependent (IDDM), uncontrolled Code(s): E10.65 - TYPE 1 DIABETES MELLITUS WITH HYPERGLYCEMIA (9) Diabetic foot infection Code(s): E11.69 - TYPE 2 DIABETES MELLITUS WITH OTHER SPECIFIED COMPLICATION; L08.9 - LOCAL INFECTION OF THE SKIN AND SUBCUTANEOUS TISSUE, UNSP (10) Osteomyelitis Code(s): M86.9 - OSTEOMYELITIS, UNSPECIFIED Qualifiers: Osteomyelitis type: unspecified type Osteomyelitis location: foot Laterality: right Qualified Code(s): M86.9 - Osteomyelitis, unspecified
[2019-11-06] MEDS ORDERED: traMADol HCL 50 MG TABLET PO PRN (11:31)
[2019-11-06] MEDS: LOSARTAN POTASSIUM 50 MG TABLET (FP) PO SCH (12:05)
[2019-11-06] MEDS: PANTOPRAZOLE 40 MG TABLET (FP) PO SCH (12:05)
[2019-11-06] MEDS: MAGNESIUM OXIDE 400 MG TABLET (FP) PO SCH (12:05)
[2019-11-06] MEDS: FUROSEMIDE 20 MG TABLET (FP) PO SCH (12:05)
[2019-11-06] MEDS: ISOSORBIDE MONONITRATE 30 MG TAB.SR.24H (FP) PO SCH (12:05)
[2019-11-06] MEDS ORDERED: INSULIN (NOVOLOG) ASPART 100 UNITS/ML 10ML VIAL ONE ×2 (12:17→21:38)
[2019-11-06] MEDS ORDERED: ATORVASTATIN CA 20 MG TABLET (FP) ONE (21:01)
[2019-11-06] MEDS ORDERED: ATORVASTATIN CA 10 MG TABLET (FP) ONE (21:01)
[2019-11-06] MEDS: ATORVASTATIN CA PO SCH (21:43)
[2019-11-06] MEDS: MORPHINE SULFATE 2 MG/ML VIAL IVPUSH PRN (23:03)
[2019-11-07] MEDS ORDERED: ceFAZolin SODIUM 1 GM VIAL ONE ×3 (02:48→17:36)
[2019-11-07] MEDS ORDERED: DEXTROSE 5%-WATER - 50 ML IVPB ONE ×3 (02:49→17:37)
[2019-11-07] MEDS: CEFAZOLIN 1 GM in DEXTROSE 5%-WATER - 50 ML IVPB SCH ×3 (02:58→17:40)
[2019-11-07] MEDS: HEPARIN NA (PORCINE) 5,000 UNITS/ML 1ML VIAL SQ SCH ×3 (06:30→22:08)
[2019-11-07] MEDS: INSULIN (LEVEMIR) 100 UNITS/ML UNITS SQ SCH ×2 (06:30→22:14)
[2019-11-07] MEDS: INSULIN SLIDING SCALE (NOVOLOG) 1 VIAL SQ SCH ×4 (06:31→22:15)
[2019-11-07] MEDS ORDERED: INSULIN (NOVOLOG) ASPART 100 UNITS/ML 10ML VIAL ONE ×3 (06:42→21:24)
[2019-11-07] MEDS: LOSARTAN POTASSIUM 50 MG TABLET (FP) PO SCH (09:18)
[2019-11-07] MEDS: MAGNESIUM OXIDE 400 MG TABLET (FP) PO SCH (09:18)
[2019-11-07] MEDS: FUROSEMIDE 20 MG TABLET (FP) PO SCH (09:18)
[2019-11-07] MEDS: ISOSORBIDE MONONITRATE 30 MG TAB.SR.24H (FP) PO SCH (09:18)
[2019-11-07] MEDS: PANTOPRAZOLE 40 MG TABLET (FP) PO SCH (09:18)
--- NOTE | 2019-11-07 11:51 | DS ---
Physical Examination Vital Signs: Vital Signs Temperature 98.0 F 11/07/19 06:00 Pulse Rate 71 11/07/19 06:00 Respiratory Rate 18 11/07/19 06:00 Blood Pressure 142/86 11/07/19 06:00 O2 Sat by Pulse Oximetry (%) 99 11/06/19 21:00 Constitutional: Yes: Calm Neck: Yes: Trachea Midline Cardiovascular: Yes: Regular Rate and Rhythm, S1, S2 Respiratory: Yes: CTA Bilaterally Gastrointestinal: Yes: Normal Bowel Sounds, Soft Wound/Incision: Yes: Other (wounds) Neurological: Yes: Alert, Oriented Labs: CBC, BMP 11/05/19 06:42 11/05/19 06:42 Discharge Summary Problems reviewed: Yes Reason For Visit: FOOT INFECTION Current Active Problems Acute kidney injury (Acute) Uredg-wq-ipzhnpj kidney injury (Acute) Cellulitis of foot (Acute) Diabetes (Acute) Diabetic foot ulcer (Acute) GERD (gastroesophageal reflux disease) (Acute) HLD (hyperlipidemia) (Acute) Hypomagnesemia (Acute) Leg edema (Acute) Hospital Course: 49 year old male with PMHx of Type I DM, HTN, BPH, GERD, renal insufficiency, foot ulcers with Hyperbaric treatments arrived to emergency room with complain of bilateral foot pain. As per patient left foot pain started 3 days ago and then the right foot started today. States he had a callus on the left hallux and heel which he unroofed and now the hallux has drainage but with pain and redness to the left foot. Pain is 10/10, sharp, stabbing with no relief on naproxen. Patient states he had low grade fever, with foul odor from left foot ulcer. Last visit to podiatry was 4 months ago. Unable to follow due to insurance issues. Patient denies cough, SOB, CP, palpitations, N/V/D, constipation, dysuria. admitted for cellulits MRi show R foot osteomyelitis to get iv abx for 6 months DM increase levemir dose AM and HS Condition: Fair - Instructions - Home Medications Comprehensive Discharge Medication List: Ambulatory Orders Atorvastatin Calcium 30 mg PO HS 12/07/17 Dulaglutide [Trulicity] 1.5 mg SQ [facility] 12/07/17 Isosorbide Mononitrate [Imdur -] 30 mg PO DAILY 12/07/17 Losartan Potassium [Cozaar -] 50 mg PO DAILY 12/07/17 Insulin Pump/Infus. Set/Meter [Accu-Chek Combo System] 1 each [facility] 01/15/18 Collagenase Clostridium Hist. [Santyl -] 1 applic TP DAILY #60 tube 01/20/18
--- NOTE | 2019-11-07 16:05 | PN ---
Progress Note, Physician History of Present Illness: Pt seen and examined at bedside. He is awake and appears comfortable. He feels that the edema is improved. - Current Medication List Current Medications: Active Medications Atorvastatin Calcium 10 mg/ (Atorvastatin Calcium 20 mg) 30 mg PO HS [facility] Last Admin: 11/06/19 21:43 Dose: 30 mg Docusate Sodium (Colace -) 100 mg PO BID PRN PRN Reason: CONSTIPATION Last Admin: 11/04/19 21:27 Dose: 100 mg Furosemide (Lasix -) 20 mg PO DAILY [facility] Last Admin: 11/07/19 09:18 Dose: 20 mg Heparin Sodium (Porcine) (Heparin -) 5,000 unit SQ TID [facility] Last Admin: 11/07/19 13:32 Dose: 5,000 unit Cefazolin Sodium 1 gm/ (Dextrose) 50 mls @ 100 mls/hr IVPB Q8H-IV [facility] Last Admin: 11/07/19 09:18 Dose: 100 mls/hr Insulin Aspart (Novolog Vial Sliding Scale -) 1 vial SQ ACHS [facility]; Protocol Last Admin: 11/07/19 12:10 Dose: 15 units Insulin Detemir (Levemir Vial) 65 units SQ AM [facility] Last Admin: 11/07/19 06:30 Dose: 65 units Insulin Detemir (Levemir Vial) 30 units SQ HS [facility] Last Admin: 11/06/19 21:43 Dose: 30 units Isosorbide Mononitrate (Imdur -) 30 mg PO DAILY [facility] Last Admin: 11/07/19 09:18 Dose: 30 mg Losartan Potassium (Cozaar -) 50 mg PO DAILY [facility] Last Admin: 11/07/19 09:18 Dose: 50 mg Magnesium Oxide (Mag-Ox -) 400 mg PO DAILY [facility] Last Admin: 11/07/19 09:18 Dose: 400 mg Morphine Sulfate (Morphine Sulfate) 2 mg IVPUSH Q6H PRN PRN Reason: PAIN LEVEL 7 - 10 Last Admin: 11/06/19 23:03 Dose: 2 mg Ondansetron HCl (Zofran Odt -) 4 mg SL Q8H PRN PRN Reason: NAUSEA AND/OR VOMITING Last Admin: 10/31/19 18:19 Dose: 4 mg Pantoprazole Sodium (Protonix -) 40 mg PO DAILY [facility] Last Admin: 12/09/19 09:18 Dose: 40 mg Tramadol HCl (Ultram -) 50 mg PO Q6H PRN PRN Reason: PAIN LEVEL 6-10 Last Admin: 11/06/19 12:04 Dose: 50 mg - Objective Vital Signs: Vital Signs Temperature 98 F 11/07/19 13:54 Pulse Rate 89 11/07/19 13:54 Respiratory Rate 20 11/07/19 13:54 Blood Pressure 146/87 11/07/19 13:54 O2 Sat by Pulse Oximetry (%) 98 11/07/19 09:00 Constitutional: Yes: Calm Eyes: Yes: Conjunctiva Clear HENT: Yes: Atraumatic Neck: Yes: Supple Cardiovascular: Yes: S1, S2 Respiratory: Yes: CTA Bilaterally Gastrointestinal: Yes: Normal Bowel Sounds, Soft Genitourinary: Yes: WNL Edema: Yes Edema: LLE: Trace, RLE: Trace Wound/Incision: Yes: Dressing Dry and Intact Neurological: Yes: Oriented Psychiatric: Yes: Oriented Labs: CBC, BMP 11/05/19 06:42 11/05/19 06:42 Problem List - Problems (1) Acute kidney injury Code(s): N17.9 - ACUTE KIDNEY FAILURE, UNSPECIFIED (2) Cellulitis of foot Code(s): L03.119 - CELLULITIS OF UNSPECIFIED PART OF LIMB (3) GERD (gastroesophageal reflux disease) Code(s): K21.9 - GASTRO-ESOPHAGEAL REFLUX DISEASE WITHOUT ESOPHAGITIS (4) CKD (chronic kidney disease) Code(s): N18.9 - CHRONIC KIDNEY DISEASE, UNSPECIFIED Assessment/Plan Current Medications Generic Name Dose Route Start Last Admin Trade Name Freq PRN Reason Stop Dose Admin Atorvastatin Calcium 10 mg/ 30 mg 10/31/19 22:00 11/06/19 21:43 Atorvastatin Calcium 20 mg PO 30 mg HS [place] Administration Docusate Sodium 100 mg 10/31/19 22:44 11/04/19 21:27 Colace - PO 100 mg BID PRN Administration CONSTIPATION Furosemide 20 mg 11/05/19 10:00 11/07/19 09:18 Lasix - PO 20 mg DAILY [place] Administration Heparin Sodium (Porcine) 5,000 unit 10/31/19 06:00 11/07/19 13:32 Heparin - SQ 5,000 unit TID [place] Administration Cefazolin Sodium 1 gm/ 50 mls @ 100 mls/hr 11/04/19 15:15 11/07/19 09:18 Dextrose IVPB 100 mls/hr Q8H-IV [place] Administration Insulin Aspart 1 vial 11/06/19 07:00 11/07/19 12:10 Novolog Vial Sliding Scale - SQ 15 units ACHS [place] Administration Protocol Insulin Detemir 65 units 11/06/19 07:00 11/07/19 06:30 Levemir Vial SQ 65 units AM [place] Administration Insulin Detemir 30 units 11/06/19 22:00 11/06/19 21:43 Levemir Vial SQ 30 units HS [place] Administration Isosorbide Mononitrate 30 mg 10/31/19 10:00 11/07/19 09:18 Imdur - PO 30 mg DAILY [place] Administration Losartan Potassium 50 mg 10/31/19 10:00 11/07/19 09:18 Cozaar - PO 50 mg DAILY [place] Administration Magnesium Oxide 400 mg 11/03/19 14:15 11/07/19 09:18 Mag-Ox - PO 400 mg DAILY [place] Administration Morphine Sulfate 2 mg 11/06/19 11:31 11/06/19 23:03 Morphine Sulfate IVPUSH 2 mg Q6H PRN Administration PAIN LEVEL 7 - 10 Ondansetron HCl 4 mg 10/31/19 14:34 10/31/19 18:19 Zofran Odt - SL 4 mg Q8H PRN Administration NAUSEA AND/OR VOMITING Pantoprazole Sodium 40 mg 11/01/19 10:00 11/07/19 09:18 Protonix - PO 40 mg DAILY [place] Administration Tramadol HCl 50 mg 11/06/19 11:31 11/06/19 12:04 Ultram - PO 50 mg Q6H PRN Administration PAIN LEVEL 6-10 Impression 1. CKD 2. hx Inguinal lymphadenopathy 3. bilateral foot ulcers/pain 4. DM 5. HTN 6. DFU Plan - cont with lasix - volume status stable on 20mg - will need outpt follow up - avoid nsaids - am labs - avoid nephrotoxins
--- NOTE | 2019-11-07 16:13 | PATH ---
Surgical Pathology Report Patient Name: RYDER HERNANDES Med. Rec. #: [id number] /Age/Gender: 1970 (Age: 49) / M Account: [id number] Location: [facility] MED/SURG Taken: 11/03/2019 Received: 11/04/2019 Reported: 11/07/2019 Physicians: Veronica Stafford DPM Specimen(s) Received PUNCH BX RIGHT PLANTAR Clinical History History of NIDDM wound right plantar x4 years Chronic wound, right plantar ulcer, biopsy (punch) Final Diagnosis ULCER, RIGHT PLANTAR, PUNCH BIOPSY: SKIN SHOWING ULCERATION WITH HYPERKERATOSIS AND GRANULATION TISSUE FORMATION. NEGATIVE FOR MALIGNANCY. Electronically Signed Zoey Conti M.D. Gross Description Received in formalin labeled " Right plantar" is a 0.5 x 0.2 cm haines skin punch biopsy excised to a depth of 0.5 cm. The base is inked blue and the specimen is submitted in toto in one cassette. /11/04/201911/04/2019
--- NOTE | 2019-11-07 17:01 | PN ---
Progress Note (short form) - Note Progress Note: FUV b/l feet. Awaiting picc line to go home. Could no today. INR to high. vss +resolving cellulitis left foot, wound right foot granulating biopsy site, grade 2 wound left 1st mpj improving cellulitis grade1-2 wound right om right Maybe dc from podiatry standpoint to follow up in wound care out patient. HBO when outpatient. Betadine dressing both feet. IVABX as per ID. Will follow. Awaiting biopsy results.
[2019-11-07] MEDS ORDERED: ATORVASTATIN CA 20 MG TABLET (FP) ONE (20:42)
[2019-11-07] MEDS ORDERED: ATORVASTATIN CA 10 MG TABLET (FP) ONE (20:42)
[2019-11-07] MEDS: ATORVASTATIN CA PO SCH (22:07)
[2019-11-07] MEDS: MORPHINE SULFATE 2 MG/ML VIAL IVPUSH PRN (22:09)
[2019-11-08] MEDS ORDERED: DEXTROSE 5%-WATER - 50 ML IVPB ONE ×2 (01:32→08:50)
[2019-11-08] MEDS ORDERED: ceFAZolin SODIUM 1 GM VIAL ONE ×2 (01:32→08:50)
[2019-11-08] MEDS: CEFAZOLIN 1 GM in DEXTROSE 5%-WATER - 50 ML IVPB SCH ×2 (01:40→10:37)
[2019-11-08] MEDS: HEPARIN NA (PORCINE) 5,000 UNITS/ML 1ML VIAL SQ SCH (06:35)
[2019-11-08] MEDS: INSULIN (LEVEMIR) 100 UNITS/ML UNITS SQ SCH (06:36)
[2019-11-08] MEDS: INSULIN SLIDING SCALE (NOVOLOG) 1 VIAL SQ SCH ×2 (06:38→10:49)
[2019-11-08 07:53] LABS: BLOOD UREA NITROGEN 32.6 mg/dL (7-18); CALCIUM 8.5 mg/dL (8.5-10.1); CREATININE 2.4 mg/dL (0.55-1.3)
[2019-11-08 08:24] VITALS: BP 149/94; PULSE 84; TEMP 97.6
--- NOTE | 2019-11-08 08:43 | PN ---
Progress Note (short form) - Note Progress Note: PICC LINE INSERTED READY FOR DC HOME WITH INFUSION IV ABX FORMS COMPLETED Problem List - Problems (1) Pehdm-oc-zoulsvi kidney injury Code(s): N17.9 - ACUTE KIDNEY FAILURE, UNSPECIFIED; N18.9 - CHRONIC KIDNEY DISEASE, UNSPECIFIED (2) Cellulitis of foot Code(s): L03.119 - CELLULITIS OF UNSPECIFIED PART OF LIMB (3) Diabetes Code(s): E11.9 - TYPE 2 DIABETES MELLITUS WITHOUT COMPLICATIONS Qualifiers: Diabetes mellitus type: type 2 (4) Diabetic foot ulcer Code(s): E11.621 - TYPE 2 DIABETES MELLITUS WITH FOOT ULCER; L97.509 - NON- PRESSURE CHRONIC ULCER OTH PRT UNSP FOOT W UNSP SEVERITY Qualifiers: Diabetic foot ulcer location: unspecified part of foot Diabetes mellitus type: type 1 Laterality: unspecified laterality Non-pressure ulcer stage: unspecified non-pressure ulcer stage Qualified Code(s): E10.621 - Type 1 diabetes mellitus with foot ulcer; L97.509 - Non-pressure chronic ulcer of other part of unspecified foot with unspecified severity (5) GERD (gastroesophageal reflux disease) Code(s): K21.9 - GASTRO-ESOPHAGEAL REFLUX DISEASE WITHOUT ESOPHAGITIS (6) HLD (hyperlipidemia) Code(s): E78.5 - HYPERLIPIDEMIA, UNSPECIFIED (7) BPH (benign prostatic hyperplasia) Code(s): N40.0 - BENIGN PROSTATIC HYPERPLASIA WITHOUT LOWER URINRY TRACT SYMP (8) Diabetes mellitus, insulin dependent (IDDM), uncontrolled Code(s): E10.65 - TYPE 1 DIABETES MELLITUS WITH HYPERGLYCEMIA (9) Diabetic foot infection Code(s): E11.69 - TYPE 2 DIABETES MELLITUS WITH OTHER SPECIFIED COMPLICATION; L08.9 - LOCAL INFECTION OF THE SKIN AND SUBCUTANEOUS TISSUE, UNSP (10) Osteomyelitis Code(s): M86.9 - OSTEOMYELITIS, UNSPECIFIED Qualifiers: Osteomyelitis type: unspecified type Osteomyelitis location: foot Laterality: right Qualified Code(s): M86.9 - Osteomyelitis, unspecified
[2019-11-08] MEDS: LOSARTAN POTASSIUM 50 MG TABLET (FP) PO SCH (10:37)
[2019-11-08] MEDS: MAGNESIUM OXIDE 400 MG TABLET (FP) PO SCH (10:37)
[2019-11-08] MEDS: FUROSEMIDE 20 MG TABLET (FP) PO SCH (10:37)
[2019-11-08] MEDS: ISOSORBIDE MONONITRATE 30 MG TAB.SR.24H (FP) PO SCH (10:37)
[2019-11-08] MEDS: MORPHINE SULFATE 2 MG/ML VIAL IVPUSH PRN (10:40)
[2019-11-08] MEDS: PANTOPRAZOLE 40 MG TABLET (FP) PO SCH (10:40)
--- NOTE | 2019-11-08 15:02 | PN ---
Progress Note, Physician History of Present Illness: Pt seen and examined at bedside. He is awake and alert. He feels that the edema is improved. - Objective Vital Signs: Vital Signs Temperature 97.6 F 11/08/19 08:24 Pulse Rate 84 11/08/19 08:24 Respiratory Rate 18 11/08/19 09:00 Blood Pressure 149/94 11/08/19 08:24 O2 Sat by Pulse Oximetry (%) 100 11/08/19 09:00 Constitutional: Yes: Calm Eyes: Yes: Conjunctiva Clear HENT: Yes: Atraumatic Cardiovascular: Yes: S1, S2 Respiratory: Yes: CTA Bilaterally Gastrointestinal: Yes: Soft Genitourinary: Yes: WNL Musculoskeletal: Yes: WNL Edema: Yes Edema: LLE: Trace, RLE: Trace Neurological: Yes: Oriented Psychiatric: Yes: Oriented Labs: CBC, BMP 11/05/19 06:42 11/08/19 06:15 Problem List - Problems (1) Acute kidney injury Code(s): N17.9 - ACUTE KIDNEY FAILURE, UNSPECIFIED (2) Cellulitis of foot Code(s): L03.119 - CELLULITIS OF UNSPECIFIED PART OF LIMB (3) GERD (gastroesophageal reflux disease) Code(s): K21.9 - GASTRO-ESOPHAGEAL REFLUX DISEASE WITHOUT ESOPHAGITIS (4) CKD (chronic kidney disease) Code(s): N18.9 - CHRONIC KIDNEY DISEASE, UNSPECIFIED Assessment/Plan Current Medications Generic Name Dose Route Start Last Admin Trade Name Freq PRN Reason Stop Dose Admin Atorvastatin Calcium 10 mg/ 30 mg 10/31/19 22:00 11/06/19 21:43 Atorvastatin Calcium 20 mg PO 30 mg HS [place] Administration Docusate Sodium 100 mg 10/31/19 22:44 11/04/19 21:27 Colace - PO 100 mg BID PRN Administration CONSTIPATION Furosemide 20 mg 11/05/19 10:00 11/07/19 09:18 Lasix - PO 20 mg DAILY [place] Administration Heparin Sodium (Porcine) 5,000 unit 10/31/19 06:00 11/07/19 13:32 Heparin - SQ 5,000 unit TID [place] Administration Cefazolin Sodium 1 gm/ 50 mls @ 100 mls/hr 11/04/19 15:15 11/07/19 09:18 Dextrose IVPB 100 mls/hr Q8H-IV [place] Administration Insulin Aspart 1 vial 11/06/19 07:00 11/07/19 12:10 Novolog Vial Sliding Scale - SQ 15 units ACHS [place] Administration Protocol Insulin Detemir 65 units 11/06/19 07:00 11/07/19 06:30 Levemir Vial SQ 65 units AM [place] Administration Insulin Detemir 30 units 11/06/19 22:00 11/06/19 21:43 Levemir Vial SQ 30 units HS [place] Administration Isosorbide Mononitrate 30 mg 10/31/19 10:00 11/07/19 09:18 Imdur - PO 30 mg DAILY [place] Administration Losartan Potassium 50 mg 10/31/19 10:00 11/07/19 09:18 Cozaar - PO 50 mg DAILY [place] Administration Magnesium Oxide 400 mg 11/03/19 14:15 11/07/19 09:18 Mag-Ox - PO 400 mg DAILY [place] Administration Morphine Sulfate 2 mg 11/06/19 11:31 11/06/19 23:03 Morphine Sulfate IVPUSH 2 mg Q6H PRN Administration PAIN LEVEL 7 - 10 Ondansetron HCl 4 mg 10/31/19 14:34 10/31/19 18:19 Zofran Odt - SL 4 mg Q8H PRN Administration NAUSEA AND/OR VOMITING Pantoprazole Sodium 40 mg 11/01/19 10:00 11/07/19 09:18 Protonix - PO 40 mg DAILY [place] Administration Tramadol HCl 50 mg 11/06/19 11:31 11/06/19 12:04 Ultram - PO 50 mg Q6H PRN Administration PAIN LEVEL 6-10 Impression 1. CKD 2. hx Inguinal lymphadenopathy 3. bilateral foot ulcers/pain 4. DM 5. HTN 6. DFU Plan - will need outpt follow up - he will follow with Dr Wu - evon vicente at home - will need to monitor lytes - avoid nephrotoxins
== END 2019-11-08 13:44 | disposition home or self-care (01) | DRG 872 ==
LOC: JER 17:59 → JERBED 21:43 → J7W 10-31 01:38
PROVIDERS: ADMIT Internal Medicine; ATTEND Family Medicine
PROC: 0HBMXZX Excision of Right Foot Skin, External Approach, Diagnostic (ICD-10-PCS; 2019-11-03)
PROC: 0HDNXZZ Extraction of Left Foot Skin, External Approach (ICD-10-PCS; 2019-11-03)
PROC: 02HV33Z Insertion of Infusion Device into Superior Vena Cava, Percutaneous Approach (ICD-10-PCS; principal; 2019-11-08)
PROC: B518ZZA Fluoroscopy of Superior Vena Cava, Guidance (ICD-10-PCS; 2019-11-08)
DX: A41.89 Other specified sepsis (principal); M86.8X6 Other osteomyelitis, lower leg; L03.116 Cellulitis of left lower limb; N17.9 Acute kidney failure, unspecified; L97.528 Non-pressure chronic ulcer of other part of left foot with other specified severity; E10.69 Type 1 diabetes mellitus with other specified complication; E78.5 Hyperlipidemia, unspecified; I12.9 Hypertensive chronic kidney disease with stage 1 through stage 4 chronic kidney disease, or unspecified chronic kidney disease; E10.22 Type 1 diabetes mellitus with diabetic chronic kidney disease; N18.9 Chronic kidney disease, unspecified; K21.9 Gastro-esophageal reflux disease without esophagitis; R60.0 Localized edema; N40.0 Benign prostatic hyperplasia without lower urinary tract symptoms; E10.42 Type 1 diabetes mellitus with diabetic polyneuropathy; E10.65 Type 1 diabetes mellitus with hyperglycemia; E10.621 Type 1 diabetes mellitus with foot ulcer; E83.42 Hypomagnesemia; Z87.891 Personal history of nicotine dependence
CPT/HCPCS: 11042; 11045; 36415; 36558; 71046-TC-FY; 73630-TC-LT; 73630-TC-RT-FY; 73718-TC-LT; 73718-TC-RT; 77001-TC-FY; 80048; 80053; 82962; 83036; 83735; 83880; 85025; 85027; 85651; 86140; 87040; 87070; 87186; 87205; 88305-TC; 93005; 93010; 99285-25; C1751; G0480; J1644; J7030; Q0162

== ENCOUNTER → 2019-12-22 | Day surgery (SDC) | payer OTHER | END | disposition home or self-care (01) | LOC: JRADIR 08:34 | PROVIDERS: ATTEND Internal Medicine | PROC: 0JPT0WZ Removal of Totally Implantable Vascular Access Device from Trunk Subcutaneous Tissue and Fascia, Open Approach (ICD-10-PCS; principal; 2019-12-22) | DX: Z45.2 Encounter for adjustment and management of vascular access device (principal) | CPT/HCPCS: 11042; 15275; 36589; 82962; G0277; Q4196 ==

== ENCOUNTER 2021-05-17 10:59 | Inpatient (IN) | payer OTHER ==
[2021-05-17] MEDS ORDERED: SODIUM CHLORIDE 3,538 ML IV ONE (11:56)
[2021-05-17] MEDS ORDERED: ONDANSETRON 4 MG/2 ML VIAL IVPUSH ONE (11:57)
[2021-05-17] MEDS ORDERED: ONDANSETRON 4 MG/2 ML VIAL ONE (12:16)
[2021-05-17 12:56] LABS: BASO % 0.4 % (0-2.0); EOS % 0.3 % (0-4.5); HEMATOCRIT 36.2 % (35.4-49); HEMOGLOBIN 12.5 GM/dL (11.7-16.9); LYMPH % 4.1 % (8-40); MCHC 34.4 g/dl (32.0-35.9); MEAN CELL VOLUME 84.2 fl (80-96); MEAN PLT VOLUME 8.2 fl (7.5-11.1); MONO % 10.6 % (3.8-10.2); NEUT % 84.6 % (42.8-82.8); PLATELET COUNT 192 10^3/uL (134-434); RDW 13.3 % (11.9-15.9); WHITE BLOOD COUNT 13.7 K/mm3 (4.0-10.0)
[2021-05-17 12:59] LABS: INR 1.09 (0.83-1.09); PROTHROMBIN TIME (PATIENT) 13.1 SEC (9.7-13.0)
[2021-05-17 13:02] LABS: ACTIVATED PTT 34.6 SECONDS (25.2-36.5)
[2021-05-17 13:07] LABS: CHLORIDE 96 mmol/L (98-107); SODIUM 132 mmol/L (136-145)
[2021-05-17 13:09] LABS: ALBUMIN 2.5 g/dl (3.4-5.0); ANION GAP 10 MMOL/L (8-16); BLOOD UREA NITROGEN 51.8 mg/dL (7-18); CALCIUM 8.3 mg/dL (8.5-10.1); CO2 26 mmol/L (21-32); GLUCOSE,RANDOM 276 mg/dL (74-106)
[2021-05-17 13:12] LABS: CREATININE 5.7 mg/dL (0.55-1.3); SGPT/ALT 44 U/L (13-61)
[2021-05-17 13:13] LABS: SGOT/AST 48 U/L (15-37)
[2021-05-17 13:14] LABS: BILIRUBIN,TOTAL 0.6 mg/dL (0.2-1); TOT PROT 6.8 g/dl (6.4-8.2)
[2021-05-17 13:15] LABS: ALK PHOS 127 U/L (45-117)
[2021-05-17] MEDS ORDERED: ASPIRIN 81 MG CHEWABLE TABLETS PO ONE (13:32)
[2021-05-17] MEDS ORDERED: ASPIRIN COATED 81 MG TABLET.EC ONE (13:39)
[2021-05-17 14:03] LABS: EPI CELLS 10 /uL (0-25.1); HYALINE CASTS 1 /uL (0-3.1); URINE APPEARANCE CLEAR; URINE BACTERIA 835 /uL (0-1359); URINE BILIRUBIN NEGATIVE (NEGATIVE); URINE COLOR YELLOW; URINE GLUCOSE (UA) 2+ (NEGATIVE); URINE KETONE NEGATIVE (NEGATIVE); URINE LEUK ESTERASE NEGATIVE (NEGATIVE); URINE NITRITE NEGATIVE (NEGATIVE); URINE PROTEIN 4+ (NEGATIVE); URINE RBC 288 /uL (0-23.9); URINE WBC 42 /uL (0-25.8)
[2021-05-17] MEDS ORDERED: ACETAMINOPHEN 1000 MG/100 ML VIAL (NON FORMULARY) IVPB ONE (14:56)
[2021-05-17] MEDS ORDERED: ACETAMINOPHEN INJECTION 100 ML IVPB ONE (15:27)
[2021-05-17] MEDS ORDERED: MEROPENEM 500 MG in DEXTROSE 5%-WATER 100 ML IVPB ONE (16:52)
[2021-05-17] MEDS ORDERED: PIPERACILLIN/TAZOB 2.25 GM 2.25 GM in DEXTROSE 5%-WATER - 50 ML IVPB ONE (16:56)
[2021-05-17] MEDS ORDERED: PIPERACILLIN/TAZOB 2.25 GM 2.25 GM/50 ML BAG IVPB ONE (17:29)
[2021-05-17] MEDS ORDERED: HEPARIN NA (PORCINE) 5,000 UNITS/ML 1ML VIAL IVPUSH PRN (18:11)
[2021-05-17] MEDS ORDERED: HEPARIN INFUSION - 25,000 UNITS/500 ML INFUS.BAG IVPB ONE (19:22)
[2021-05-17] MEDS: HEPARIN - 25,000 UNIT in SODIUM CHLORIDE 495 ML IV SCH (19:26)
[2021-05-18] MEDS: HEPARIN NA (PORCINE) 5,000 UNITS/ML 1ML VIAL IVPUSH PRN (01:59)
[2021-05-18 06:32] LABS: BASO % 0.6 % (0-2.0); EOS % 0.8 % (0-4.5); HEMATOCRIT 36.3 % (35.4-49); LYMPH % 7.7 % (8-40); MCH 28.2 pg (25.7-33.7); MEAN CELL VOLUME 85.5 fl (80-96); MEAN PLT VOLUME 7.8 fl (7.5-11.1); MONO % 11.8 % (3.8-10.2); NEUT % 79.1 % (42.8-82.8); PLATELET COUNT 201 10^3/uL (134-434); RBC 4.25 M/mm3 (4.00-5.60); RDW 13.6 % (11.9-15.9); WHITE BLOOD COUNT 12.9 K/mm3 (4.0-10.0)
[2021-05-18] MEDS: INSULIN SLIDING SCALE (NOVOLOG) 1 VIAL SQ SCH ×4 (06:56→22:40)
[2021-05-18 07:45] LABS: ALBUMIN 2.2 g/dl (3.4-5.0); BILIRUBIN,TOTAL 0.7 mg/dL (0.2-1); CALCIUM 8.1 mg/dL (8.5-10.1); CREATININE 5.5 mg/dL (0.55-1.3); TOT PROT 6.3 g/dl (6.4-8.2)
[2021-05-18] MEDS: ASPIRIN COATED 81 MG TABLET.EC PO SCH (10:09)
[2021-05-18] MEDS ORDERED: VANCOMYCIN 1 GRAM (PRE-DOCKED) 1,000 MG/250 ML BAG IVPB ONE (10:37)
[2021-05-18] MEDS ORDERED: MEROPENEM 1 GM VIAL (RESTRICTED TO ID) IVPB ONE (11:23)
[2021-05-18] MEDS ORDERED: DEXTROSE 5%-WATER 100 ML IVPB ONE (11:23)
[2021-05-18] MEDS: MEROPENEM 1 GM in DEXTROSE 5%-WATER 100 ML IVPB SCH (11:39)
[2021-05-18 15:08] LABS: SARS-CoV-2 NAA Not Detected (Not Detected)
[2021-05-18] MEDS: METOPROLOL TARTRATE 50 MG TABLET (FP) PO SCH ×2 (16:58→21:21)
[2021-05-18] MEDS: HEPARIN - 25,000 UNIT in SODIUM CHLORIDE 495 ML IV SCH (19:00)
[2021-05-18] MEDS: ATORVASTATIN CA 80 MG TABLET (FP) PO SCH (21:21)
[2021-05-18] MEDS ORDERED: METOPROLOL TARTRATE 50 MG TABLET (FP) PO SCH (22:00)
[2021-05-19 06:43] LABS: EOS % 2.5 % (0-4.5); HEMATOCRIT 37.4 % (35.4-49); HEMOGLOBIN 12.6 GM/dL (11.7-16.9); LYMPH % 13.1 % (8-40); MCH 28.6 pg (25.7-33.7); MCHC 33.6 g/dl (32.0-35.9); MEAN CELL VOLUME 85.3 fl (80-96); MEAN PLT VOLUME 8.1 fl (7.5-11.1); MONO % 10.4 % (3.8-10.2); PLATELET COUNT 235 10^3/uL (134-434); RBC 4.38 M/mm3 (4.00-5.60); RDW 13.3 % (11.9-15.9); WHITE BLOOD COUNT 10.6 K/mm3 (4.0-10.0)
[2021-05-19 06:58] LABS: ALBUMIN 2.1 g/dl (3.4-5.0); BLOOD UREA NITROGEN 66.5 mg/dL (7-18); CALCIUM 8.1 mg/dL (8.5-10.1); MAGNESIUM 1.8 mg/dL (1.8-2.4)
[2021-05-19 07:01] LABS: CREATININE 5.4 mg/dL (0.55-1.3)
[2021-05-19 07:02] LABS: PHOSPHOROUS 3.9 mg/dL (2.5-4.9)
[2021-05-19 07:03] LABS: BILIRUBIN,TOTAL 0.5 mg/dL (0.2-1); TOT PROT 6.5 g/dl (6.4-8.2)
[2021-05-19] MEDS: INSULIN SLIDING SCALE (NOVOLOG) 1 VIAL SQ SCH ×4 (07:04→22:40)
[2021-05-19] MEDS ORDERED: DEXTROSE 5%-WATER 100 ML IVPB ONE (08:06)
[2021-05-19] MEDS ORDERED: MEROPENEM 1 GM VIAL (RESTRICTED TO ID) IVPB ONE (08:06)
[2021-05-19] MEDS: ASPIRIN COATED 81 MG TABLET.EC PO SCH (09:08)
[2021-05-19] MEDS: METOPROLOL TARTRATE 50 MG TABLET (FP) PO SCH ×3 (09:08→22:40)
[2021-05-19] MEDS: MEROPENEM 1 GM in DEXTROSE 5%-WATER 100 ML IVPB SCH (10:32)
[2021-05-19] MEDS ORDERED: METOPROLOL TARTRATE 50 MG TABLET (FP) PO ONE (15:27)
[2021-05-19] MEDS: HEPARIN - 25,000 UNIT in SODIUM CHLORIDE 495 ML IV SCH (17:00)
[2021-05-19] MEDS: amLODIPine BESYLATE 5 MG TABLET (FP) PO SCH (17:08)
[2021-05-19] MEDS: ATORVASTATIN CA 80 MG TABLET (FP) PO SCH (22:40)
[2021-05-19] MEDS ORDERED: ACETAMINOPHEN 325 MG TABLET (FP) PO ONE (23:12)
[2021-05-19] MEDS ORDERED: MAG HYDROX/AL HYDROX/SIMETH 30 ML UNIT-DOSE CUP PO ONE (23:13)
[2021-05-20] MEDS: HEPARIN NA (PORCINE) 5,000 UNITS/ML 1ML VIAL IVPUSH PRN (03:04)
[2021-05-20] MEDS: INSULIN SLIDING SCALE (NOVOLOG) 1 VIAL SQ SCH ×3 (06:09→21:19)
[2021-05-20] MEDS: ASPIRIN COATED 81 MG TABLET.EC PO SCH (09:33)
[2021-05-20] MEDS: METOPROLOL TARTRATE 50 MG TABLET (FP) PO SCH ×2 (09:33→21:05)
[2021-05-20] MEDS: amLODIPine BESYLATE 5 MG TABLET (FP) PO SCH (09:33)
[2021-05-20] MEDS ORDERED: DEXTROSE 5%-WATER 100 ML IVPB ONE (10:16)
[2021-05-20] MEDS ORDERED: MEROPENEM 1 GM VIAL (RESTRICTED TO ID) IVPB ONE (10:16)
[2021-05-20] MEDS: MEROPENEM 1 GM in DEXTROSE 5%-WATER 100 ML IVPB SCH (10:29)
[2021-05-20 11:05] LABS: CALCIUM 8.2 mg/dL (8.5-10.1); CREATININE 5.4 mg/dL (0.55-1.3); MAGNESIUM 2.2 mg/dL (1.8-2.4); PHOSPHOROUS 4.7 mg/dL (2.5-4.9)
[2021-05-20 14:15] VITALS: BMI 35.5
[2021-05-20] MEDS: ATORVASTATIN CA 80 MG TABLET (FP) PO SCH (21:05)
[2021-05-20] MEDS: HEPARIN - 25,000 UNIT in SODIUM CHLORIDE 495 ML IV SCH (21:19)
[2021-05-21] MEDS: INSULIN SLIDING SCALE (NOVOLOG) 1 VIAL SQ SCH ×4 (05:31→16:57)
[2021-05-21 06:49] LABS: HEMATOCRIT 37.1 % (35.4-49); HEMOGLOBIN 12.7 GM/dL (11.7-16.9); MCH 28.8 pg (25.7-33.7); MCHC 34.1 g/dl (32.0-35.9); MEAN CELL VOLUME 84.5 fl (80-96); MEAN PLT VOLUME 7.9 fl (7.5-11.1); PLATELET COUNT 293 10^3/uL (134-434); RBC 4.39 M/mm3 (4.00-5.60); RDW 13.3 % (11.9-15.9)
[2021-05-21 07:41] LABS: BLOOD UREA NITROGEN 62.3 mg/dL (7-18); CALCIUM 7.7 mg/dL (8.5-10.1); CREATININE 5.1 mg/dL (0.55-1.3); MAGNESIUM 1.9 mg/dL (1.8-2.4)
[2021-05-21] MEDS ORDERED: DEXTROSE 5%-WATER 100 ML IVPB ONE (07:52)
[2021-05-21] MEDS ORDERED: MEROPENEM 1 GM VIAL (RESTRICTED TO ID) IVPB ONE (07:52)
[2021-05-21] MEDS: amLODIPine BESYLATE 5 MG TABLET (FP) PO SCH (09:37)
[2021-05-21] MEDS: METOPROLOL TARTRATE 50 MG TABLET (FP) PO SCH (09:37)
[2021-05-21] MEDS: ASPIRIN COATED 81 MG TABLET.EC PO SCH (09:37)
[2021-05-21] MEDS: MEROPENEM 1 GM in DEXTROSE 5%-WATER 100 ML IVPB SCH (10:12)
[2021-05-21] MEDS ORDERED: hydrALAZINE HCL 25 MG TABLET (FP) PO SCH (10:45)
[2021-05-21] MEDS ORDERED: POTASSIUM CHLORIDE TABS 20 MEQ TABLET.ER (FP) PO ONE (14:15)
[2021-05-21 15:11] VITALS: TEMP 98.1
[2021-05-21 17:04] VITALS: BP 161/92; PULSE 66
== END 2021-05-21 18:20 | disposition home or self-care (01) | DRG 280 ==
LOC: JER 10:59 → JERBED 17:18 → J2W 23:12
PROVIDERS: ATTEND Family Medicine
DX: I21.4 Non-ST elevation (NSTEMI) myocardial infarction (principal); J69.0 Pneumonitis due to inhalation of food and vomit; N17.9 Acute kidney failure, unspecified; L97.508 Non-pressure chronic ulcer of other part of unspecified foot with other specified severity; E87.1 Hypo-osmolality and hyponatremia; I12.0 Hypertensive chronic kidney disease with stage 5 chronic kidney disease or end stage renal disease; N18.5 Chronic kidney disease, stage 5; E78.5 Hyperlipidemia, unspecified; R50.9 Fever, unspecified; E11.51 Type 2 diabetes mellitus with diabetic peripheral angiopathy without gangrene; N40.0 Benign prostatic hyperplasia without lower urinary tract symptoms; K21.9 Gastro-esophageal reflux disease without esophagitis; E11.42 Type 2 diabetes mellitus with diabetic polyneuropathy; R74.8 Abnormal levels of other serum enzymes; L08.9 Local infection of the skin and subcutaneous tissue, unspecified; E11.621 Type 2 diabetes mellitus with foot ulcer; E11.69 Type 2 diabetes mellitus with other specified complication; D72.829 Elevated white blood cell count, unspecified; K52.89 Other specified noninfective gastroenteritis and colitis; E11.22 Type 2 diabetes mellitus with diabetic chronic kidney disease; I25.10 Atherosclerotic heart disease of native coronary artery without angina pectoris; R26.81 Unsteadiness on feet; E66.9 Obesity, unspecified; Z68.35 Body mass index [BMI] 35.0-35.9, adult
CPT/HCPCS: 36415; 71045-TC-FY; 71250-TC; 74176-TC; 80048; 80053; 81003; 82550; 82553; 82962; 83605; 83735; 84100; 84484; 85025; 85027; 85610; 85730; 87040; 87086; 87804; 93005; 93010; 93306-TC; 99291; C9803; J0131; J1644; U0003; U0005

== ENCOUNTER 2021-06-10 17:27 | Inpatient (IN) | payer OTHER ==
[2021-06-10] MEDS ORDERED: ACETAMINOPHEN 1000 MG/100 ML VIAL (NON FORMULARY) IVPB ONE (18:31)
[2021-06-10] MEDS ORDERED: LACTATED RINGERS SOLUTION 1000 ML INFUS.BAG IV ONE (18:32)
[2021-06-10 18:56] LABS: BASO % 0.7 % (0-2.0); EOS % 1.6 % (0-4.5); HEMATOCRIT 35.5 % (35.4-49); LYMPH % 6.7 % (8-40); MCH 28.7 pg (25.7-33.7); MCHC 33.7 g/dl (32.0-35.9); MEAN CELL VOLUME 85.2 fl (80-96); MEAN PLT VOLUME 7.9 fl (7.5-11.1); MONO % 10.5 % (3.8-10.2); NEUT % 80.5 % (42.8-82.8); PLATELET COUNT 279 10^3/uL (134-434); RBC 4.17 M/mm3 (4.00-5.60)
[2021-06-10 19:04] LABS: INR 1.15 (0.83-1.09); PROTHROMBIN TIME (PATIENT) 13.9 SEC (9.7-13.0)
[2021-06-10 19:07] LABS: ACTIVATED PTT 34.8 SECONDS (25.2-36.5)
[2021-06-10 19:23] LABS: ALBUMIN 2.3 g/dl (3.4-5.0); CALCIUM 7.8 mg/dL (8.5-10.1)
[2021-06-10 19:24] LABS: BLOOD UREA NITROGEN 43.3 mg/dL (7-18)
[2021-06-10 19:27] LABS: CREATININE 5.7 mg/dL (0.55-1.3)
[2021-06-10 19:28] LABS: BILIRUBIN,TOTAL 0.5 mg/dL (0.2-1); TOT PROT 7.4 g/dl (6.4-8.2)
[2021-06-10] MEDS ORDERED: ONDANSETRON 4 MG/2 ML VIAL IVPB ONE (20:49)
[2021-06-10 21:49] LABS: EPI CELLS 31 /uL (0-25.1); HYALINE CASTS 7 /uL (0-3.1); PH,URINE 6.5 (5.0-8.0); URINE APPEARANCE CLEAR; URINE BACTERIA 13 /uL (0-1359); URINE BILIRUBIN NEGATIVE (NEGATIVE); URINE COLOR YELLOW; URINE GLUCOSE (UA) 1+ (NEGATIVE); URINE KETONE NEGATIVE (NEGATIVE); URINE LEUK ESTERASE NEGATIVE (NEGATIVE); URINE NITRITE NEGATIVE (NEGATIVE); URINE PROTEIN 2+ (NEGATIVE); URINE RBC 86 /uL (0-23.9); URINE WBC 27 /uL (0-25.8)
[2021-06-10] MEDS ORDERED: PIPERACILLIN/TAZOB 3.375 GM 3.375 GM in DEXTROSE 5%-WATER - 50 ML IVPB ONE (22:24)
[2021-06-10] MEDS ORDERED: VANCOMYCIN 1 GM in D5W (PRE-DOCKED) 1,000 MG/250 ML IVPB ONE (22:26)
[2021-06-10 23:52] LABS: VENOUS O2 SATURATION 87.4 % (70-80); VENOUS PCO2 41.9 mmHg (38-52); VENOUS PH 7.393 (7.310-7.410)
[2021-06-11] MEDS ORDERED: ONDANSETRON 4 MG/2 ML VIAL IVPUSH PRN (03:00)
[2021-06-11] MEDS ORDERED: HEPARIN NA (PORCINE) 5,000 UNITS/ML 1ML VIAL ONE (06:25)
[2021-06-11] MEDS: HEPARIN NA (PORCINE) 5,000 UNITS/ML 1ML VIAL SQ SCH ×2 (06:39→22:26)
[2021-06-11 06:42] LABS: EOS % 4.7 % (0-4.5); HEMATOCRIT 33.3 % (35.4-49); HEMOGLOBIN 11.1 GM/dL (11.7-16.9); LYMPH % 9.9 % (8-40); MCH 28.4 pg (25.7-33.7); MCHC 33.3 g/dl (32.0-35.9); MEAN CELL VOLUME 85.4 fl (80-96); MEAN PLT VOLUME 7.7 fl (7.5-11.1); MONO % 11.8 % (3.8-10.2); NEUT % 72.6 % (42.8-82.8); PLATELET COUNT 253 10^3/uL (134-434); WHITE BLOOD COUNT 12.1 K/mm3 (4.0-10.0)
[2021-06-11 07:19] LABS: CALCIUM 7.7 mg/dL (8.5-10.1); CREATININE 5.4 mg/dL (0.55-1.3); MAGNESIUM 1.6 mg/dL (1.8-2.4)
[2021-06-11] MEDS: INSULIN SLIDING SCALE (NOVOLOG) 1 VIAL SQ SCH ×4 (07:37→22:36)
[2021-06-11] MEDS ORDERED: PIPERACILLIN/TAZOB 2.25 GM 2.25 GM/50 ML BAG IVPB ONE ×3 (07:56→18:36)
[2021-06-11] MEDS ORDERED: ACETAMINOPHEN 325 MG TABLET (FP) PO PRN (07:59)
[2021-06-11] MEDS: PIPERACILLIN/TAZOB 2.25 GM 2.25 GM in DEXTROSE 5%-WATER - 50 ML IVPB SCH ×3 (08:25→23:31)
[2021-06-11] MEDS ORDERED: METOPROLOL TARTRATE 50 MG TABLET (FP) ONE (09:35)
[2021-06-11] MEDS: CHLORTHALIDONE 25 MG TABLET PO SCH (09:55)
[2021-06-11] MEDS: ISOSORBIDE MONONITRATE 30 MG TAB.SR.24H (FP) PO SCH (09:55)
[2021-06-11] MEDS: METOPROLOL TARTRATE 50 MG TABLET (FP) PO SCH ×2 (09:55→22:26)
[2021-06-11] MEDS ORDERED: VANCOMYCIN 1 GRAM (PRE-DOCKED) 1,000 MG/250 ML BAG IVPB ONE ×2 (16:10→16:39)
[2021-06-11] MEDS: ATORVASTATIN CA 20 MG TABLET (FP) PO SCH (22:26)
[2021-06-11] MEDS ORDERED: DEXTROSE 5%-WATER - 50 ML IVPB ONE (23:22)
[2021-06-11] MEDS ORDERED: PIPERACILLIN/TAZOBACTAM 2.25 GM VIAL IVPB ONE (23:22)
[2021-06-12 00:19] VITALS: BMI 34.9
[2021-06-12] MEDS: PIPERACILLIN/TAZOB 2.25 GM 2.25 GM in DEXTROSE 5%-WATER - 50 ML IVPB SCH ×5 (06:30→19:15)
[2021-06-12] MEDS: INSULIN SLIDING SCALE (NOVOLOG) 1 VIAL SQ SCH ×4 (06:30→22:01)
[2021-06-12] MEDS: SODIUM CHLORIDE 0.45% 1,000 ML IV SCH ×2 (07:34→14:42)
[2021-06-12] MEDS: HEPARIN NA (PORCINE) 5,000 UNITS/ML 1ML VIAL SQ SCH ×4 (07:35→21:56)
[2021-06-12 08:13] LABS: BASO % 1.1 % (0-2.0); EOS % 6.7 % (0-4.5); HEMATOCRIT 33.6 % (35.4-49); HEMOGLOBIN 11.4 GM/dL (11.7-16.9); LYMPH % 12.8 % (8-40); MCH 28.9 pg (25.7-33.7); MCHC 33.9 g/dl (32.0-35.9); MEAN CELL VOLUME 85.4 fl (80-96); MEAN PLT VOLUME 7.6 fl (7.5-11.1); MONO % 11.3 % (3.8-10.2); NEUT % 68.1 % (42.8-82.8); PLATELET COUNT 267 10^3/uL (134-434); RBC 3.94 M/mm3 (4.00-5.60); RDW 13.1 % (11.9-15.9); WHITE BLOOD COUNT 8.3 K/mm3 (4.0-10.0)
[2021-06-12 08:32] LABS: BLOOD UREA NITROGEN 45.6 mg/dL (7-18)
[2021-06-12 08:33] LABS: CALCIUM 7.9 mg/dL (8.5-10.1)
[2021-06-12 08:35] LABS: CREATININE 5.8 mg/dL (0.55-1.3)
[2021-06-12 08:37] LABS: TOT PROT 6.8 g/dl (6.4-8.2)
[2021-06-12] MEDS ORDERED: DEXTROSE 5%-WATER - 50 ML IVPB ONE ×2 (09:14→17:07)
[2021-06-12] MEDS ORDERED: PIPERACILLIN/TAZOBACTAM 2.25 GM VIAL IVPB ONE ×2 (09:14→17:07)
[2021-06-12] MEDS: METOPROLOL TARTRATE 50 MG TABLET (FP) PO SCH ×2 (09:19→21:56)
[2021-06-12] MEDS: ISOSORBIDE MONONITRATE 30 MG TAB.SR.24H (FP) PO SCH (09:19)
[2021-06-12] MEDS: CHLORTHALIDONE 25 MG TABLET PO SCH (09:19)
[2021-06-12] MEDS ORDERED: VANCOMYCIN 1 GRAM (PRE-DOCKED) 1,000 MG/250 ML BAG IVPB ONE ×2 (12:30→14:45)
[2021-06-12] MEDS: ECHINACEA 400 MG PO SCH ×2 (13:31→13:32)
[2021-06-12] MEDS: amLODIPine BESYLATE 5 MG TABLET (FP) PO SCH (13:58)
[2021-06-12] MEDS: COLLAGENASE CLOSTRIDIUM HIST. 30 GRAMS TUBE TP SCH (13:58)
[2021-06-12] MEDS: ATORVASTATIN CA 20 MG TABLET (FP) PO SCH (21:56)
[2021-06-13] MEDS ORDERED: PIPERACILLIN/TAZOBACTAM 2.25 GM VIAL IVPB ONE ×3 (01:06→17:20)
[2021-06-13] MEDS ORDERED: DEXTROSE 5%-WATER - 50 ML IVPB ONE ×3 (01:06→17:20)
[2021-06-13] MEDS: PIPERACILLIN/TAZOB 2.25 GM 2.25 GM in DEXTROSE 5%-WATER - 50 ML IVPB SCH ×3 (01:19→17:38)
[2021-06-13] MEDS: INSULIN SLIDING SCALE (NOVOLOG) 1 VIAL SQ SCH ×4 (06:35→22:31)
[2021-06-13] MEDS: HEPARIN NA (PORCINE) 5,000 UNITS/ML 1ML VIAL SQ SCH ×3 (06:39→22:30)
[2021-06-13] MEDS: CHLORTHALIDONE 25 MG TABLET PO SCH (09:28)
[2021-06-13] MEDS: ISOSORBIDE MONONITRATE 30 MG TAB.SR.24H (FP) PO SCH (09:28)
[2021-06-13] MEDS: amLODIPine BESYLATE 5 MG TABLET (FP) PO SCH (09:28)
[2021-06-13] MEDS: METOPROLOL TARTRATE 50 MG TABLET (FP) PO SCH ×2 (09:28→22:30)
[2021-06-13] MEDS: ASPIRIN COATED 81 MG TABLET.EC PO SCH (09:28)
[2021-06-13] MEDS ORDERED: VANCOMYCIN 1 GRAM (PRE-DOCKED) 1,000 MG/250 ML BAG IVPB ONE (09:48)
[2021-06-13] MEDS ORDERED: REGADENOSON 0.4 MG/5 ML PRE-FILLED SYRINGE IVPUSH ONE ×2 (11:10→14:15)
[2021-06-13] MEDS: COLLAGENASE CLOSTRIDIUM HIST. 30 GRAMS TUBE TP SCH (13:31)
[2021-06-13] MEDS: ATORVASTATIN CA 80 MG TABLET (FP) PO SCH (22:30)
[2021-06-14] MEDS ORDERED: DEXTROSE 5%-WATER - 50 ML IVPB ONE ×3 (01:16→14:53)
[2021-06-14] MEDS ORDERED: PIPERACILLIN/TAZOBACTAM 2.25 GM VIAL IVPB ONE ×3 (01:16→14:53)
[2021-06-14] MEDS: PIPERACILLIN/TAZOB 2.25 GM 2.25 GM in DEXTROSE 5%-WATER - 50 ML IVPB SCH ×3 (01:28→17:21)
[2021-06-14] MEDS: HEPARIN NA (PORCINE) 5,000 UNITS/ML 1ML VIAL SQ SCH ×3 (06:21→22:04)
[2021-06-14] MEDS: INSULIN SLIDING SCALE (NOVOLOG) 1 VIAL SQ SCH ×5 (06:27→22:05)
[2021-06-14] MEDS ORDERED: PT OWN MED DRAWER 7, Y5N ONE (09:45)
[2021-06-14] MEDS: ISOSORBIDE MONONITRATE 60 MG TAB.SR.24H (FP) PO SCH (09:49)
[2021-06-14] MEDS: ASPIRIN COATED 81 MG TABLET.EC PO SCH (09:49)
[2021-06-14] MEDS: amLODIPine BESYLATE 5 MG TABLET (FP) PO SCH (09:49)
[2021-06-14] MEDS: METOPROLOL TARTRATE 50 MG TABLET (FP) PO SCH ×2 (09:49→22:05)
[2021-06-14] MEDS: CHLORTHALIDONE 25 MG TABLET PO SCH (09:49)
[2021-06-14] MEDS: COLLAGENASE CLOSTRIDIUM HIST. 30 GRAMS TUBE TP SCH (12:10)
[2021-06-14] MEDS ORDERED: VANCOMYCIN 1 GRAM (PRE-DOCKED) 1,000 MG/250 ML BAG IVPB ONE (15:00)
[2021-06-14] MEDS: ATORVASTATIN CA 80 MG TABLET (FP) PO SCH (22:05)
[2021-06-15] MEDS ORDERED: DEXTROSE 5%-WATER - 50 ML IVPB ONE ×2 (01:19→08:41)
[2021-06-15] MEDS ORDERED: PIPERACILLIN/TAZOBACTAM 2.25 GM VIAL IVPB ONE ×2 (01:19→08:40)
[2021-06-15] MEDS: PIPERACILLIN/TAZOB 2.25 GM 2.25 GM in DEXTROSE 5%-WATER - 50 ML IVPB SCH ×2 (02:42→10:36)
[2021-06-15] MEDS: HEPARIN NA (PORCINE) 5,000 UNITS/ML 1ML VIAL SQ SCH ×3 (06:03→21:39)
[2021-06-15] MEDS: INSULIN SLIDING SCALE (NOVOLOG) 1 VIAL SQ SCH ×4 (06:04→21:46)
[2021-06-15 08:13] LABS: EOS % 6.3 % (0-4.5); HEMATOCRIT 36.3 % (35.4-49); HEMOGLOBIN 12.2 GM/dL (11.7-16.9); LYMPH % 19.5 % (8-40); MCH 28.8 pg (25.7-33.7); MCHC 33.6 g/dl (32.0-35.9); MEAN CELL VOLUME 85.8 fl (80-96); MEAN PLT VOLUME 7.5 fl (7.5-11.1); MONO % 6.9 % (3.8-10.2); NEUT % 66.3 % (42.8-82.8); PLATELET COUNT 335 10^3/uL (134-434); RBC 4.24 M/mm3 (4.00-5.60); WHITE BLOOD COUNT 9.2 K/mm3 (4.0-10.0)
[2021-06-15 08:24] LABS: ALBUMIN 2.2 g/dl (3.4-5.0); BLOOD UREA NITROGEN 47.5 mg/dL (7-18)
[2021-06-15 08:27] LABS: CREATININE 6.1 mg/dL (0.55-1.3)
[2021-06-15 08:29] LABS: BILIRUBIN,TOTAL 0.3 mg/dL (0.2-1); TOT PROT 7.6 g/dl (6.4-8.2)
[2021-06-15] MEDS: ISOSORBIDE MONONITRATE 60 MG TAB.SR.24H (FP) PO SCH (10:35)
[2021-06-15] MEDS: METOPROLOL TARTRATE 50 MG TABLET (FP) PO SCH ×2 (10:35→21:39)
[2021-06-15] MEDS: amLODIPine BESYLATE 5 MG TABLET (FP) PO SCH (10:35)
[2021-06-15] MEDS: COLLAGENASE CLOSTRIDIUM HIST. 30 GRAMS TUBE TP SCH (10:35)
[2021-06-15] MEDS: CHLORTHALIDONE 25 MG TABLET PO SCH (10:35)
[2021-06-15] MEDS: ASPIRIN COATED 81 MG TABLET.EC PO SCH (10:35)
[2021-06-15] MEDS: ATORVASTATIN CA 80 MG TABLET (FP) PO SCH (21:39)
[2021-06-16] MEDS: HEPARIN NA (PORCINE) 5,000 UNITS/ML 1ML VIAL SQ SCH ×3 (05:52→21:45)
[2021-06-16] MEDS: INSULIN SLIDING SCALE (NOVOLOG) 1 VIAL SQ SCH ×4 (06:02→21:46)
[2021-06-16 07:06] LABS: BASO % 1.3 % (0-2.0); EOS % 4.9 % (0-4.5); HEMATOCRIT 36.5 % (35.4-49); HEMOGLOBIN 12.3 GM/dL (11.7-16.9); LYMPH % 17.5 % (8-40); MCH 28.8 pg (25.7-33.7); MCHC 33.6 g/dl (32.0-35.9); MEAN CELL VOLUME 85.6 fl (80-96); MEAN PLT VOLUME 7.4 fl (7.5-11.1); MONO % 7.1 % (3.8-10.2); NEUT % 69.2 % (42.8-82.8); PLATELET COUNT 319 10^3/uL (134-434); RBC 4.26 M/mm3 (4.00-5.60); RDW 12.8 % (11.9-15.9)
[2021-06-16 07:34] LABS: ALBUMIN 2.1 g/dl (3.4-5.0); CALCIUM 8.1 mg/dL (8.5-10.1)
[2021-06-16 07:35] LABS: BLOOD UREA NITROGEN 46.6 mg/dL (7-18)
[2021-06-16 07:38] LABS: CREATININE 6.2 mg/dL (0.55-1.3); PHOSPHOROUS 5.2 mg/dL (2.5-4.9)
[2021-06-16 07:39] LABS: BILIRUBIN,TOTAL 0.3 mg/dL (0.2-1); TOT PROT 7.1 g/dl (6.4-8.2)
[2021-06-16] MEDS: amLODIPine BESYLATE 5 MG TABLET (FP) PO SCH (09:46)
[2021-06-16] MEDS: METOPROLOL TARTRATE 50 MG TABLET (FP) PO SCH ×2 (09:46→21:45)
[2021-06-16] MEDS: ASPIRIN COATED 81 MG TABLET.EC PO SCH (09:46)
[2021-06-16] MEDS: ISOSORBIDE MONONITRATE 60 MG TAB.SR.24H (FP) PO SCH (09:46)
[2021-06-16] MEDS: CHLORTHALIDONE 25 MG TABLET PO SCH (09:47)
[2021-06-16] MEDS: COLLAGENASE CLOSTRIDIUM HIST. 30 GRAMS TUBE TP SCH (10:27)
[2021-06-16] MEDS ORDERED: VANCOMYCIN 1 GRAM (PRE-DOCKED) 1,000 MG/250 ML BAG IVPB ONE (14:04)
[2021-06-16] MEDS: ATORVASTATIN CA 80 MG TABLET (FP) PO SCH (21:45)
[2021-06-17] MEDS: HEPARIN NA (PORCINE) 5,000 UNITS/ML 1ML VIAL SQ SCH (06:15)
[2021-06-17] MEDS: INSULIN SLIDING SCALE (NOVOLOG) 1 VIAL SQ SCH ×4 (06:20→22:05)
[2021-06-17] MEDS ORDERED: MIDAZOLAM HCL 2 MG/2 ML SINGLE DOSE VIAL ONE (09:05)
[2021-06-17] MEDS: amLODIPine BESYLATE 5 MG TABLET (FP) PO SCH (09:26)
[2021-06-17] MEDS: ISOSORBIDE MONONITRATE 60 MG TAB.SR.24H (FP) PO SCH (09:26)
[2021-06-17] MEDS: CHLORTHALIDONE 25 MG TABLET PO SCH (09:26)
[2021-06-17] MEDS: ASPIRIN COATED 81 MG TABLET.EC PO SCH (09:26)
[2021-06-17] MEDS: METOPROLOL TARTRATE 50 MG TABLET (FP) PO SCH ×2 (09:26→22:02)
[2021-06-17] MEDS: COLLAGENASE CLOSTRIDIUM HIST. 30 GRAMS TUBE TP SCH (12:08)
[2021-06-17] MEDS ORDERED: PT OWN MED DRAWER 7, Y5N ONE ×2 (14:15→16:05)
[2021-06-17] MEDS ORDERED: DAPTOMYCIN IVPB ONE (17:00)
[2021-06-17] MEDS ORDERED: SODIUM CHLORIDE IVPB ONE (17:00)
[2021-06-18] MEDS: INSULIN SLIDING SCALE (NOVOLOG) 1 VIAL SQ SCH ×3 (06:31→17:16)
[2021-06-18 07:22] LABS: BASO % 1.3 % (0-2.0); EOS % 5.2 % (0-4.5); HEMATOCRIT 36.5 % (35.4-49); HEMOGLOBIN 12.5 GM/dL (11.7-16.9); MCH 29.2 pg (25.7-33.7); MCHC 34.4 g/dl (32.0-35.9); MEAN CELL VOLUME 84.9 fl (80-96); MEAN PLT VOLUME 7.3 fl (7.5-11.1); MONO % 7.7 % (3.8-10.2); NEUT % 67.8 % (42.8-82.8); PLATELET COUNT 326 10^3/uL (134-434); RBC 4.29 M/mm3 (4.00-5.60); WHITE BLOOD COUNT 9.8 K/mm3 (4.0-10.0)
[2021-06-18 07:27] VITALS: PULSE 70
[2021-06-18 07:41] LABS: CALCIUM 8.1 mg/dL (8.5-10.1)
[2021-06-18 07:43] LABS: BLOOD UREA NITROGEN 47.3 mg/dL (7-18)
[2021-06-18 07:46] LABS: CREATININE 6.1 mg/dL (0.55-1.3)
[2021-06-18] MEDS: METOPROLOL TARTRATE 50 MG TABLET (FP) PO SCH (11:49)
[2021-06-18] MEDS: ASPIRIN COATED 81 MG TABLET.EC PO SCH (11:49)
[2021-06-18] MEDS: ISOSORBIDE MONONITRATE 60 MG TAB.SR.24H (FP) PO SCH (11:50)
[2021-06-18] MEDS: CHLORTHALIDONE 25 MG TABLET PO SCH (11:50)
[2021-06-18] MEDS: amLODIPine BESYLATE 5 MG TABLET (FP) PO SCH (11:51)
[2021-06-18] MEDS: COLLAGENASE CLOSTRIDIUM HIST. 30 GRAMS TUBE TP SCH (11:51)
[2021-06-18 14:11] VITALS: BP 138/87; TEMP 98.5
== END 2021-06-18 17:36 | disposition home health service (06) | DRG 638 ==
LOC: JER 17:27 → JERBED 06-11 01:53 → J4S 06-11 20:31
PROVIDERS: ADMIT Hospitalist; ATTEND Family Medicine
PROC: 02HV33Z Insertion of Infusion Device into Superior Vena Cava, Percutaneous Approach (ICD-10-PCS; principal; 2021-06-18)
PROC: B518ZZA Fluoroscopy of Superior Vena Cava, Guidance (ICD-10-PCS; 2021-06-18)
DX: E11.69 Type 2 diabetes mellitus with other specified complication (principal); L03.115 Cellulitis of right lower limb; M86.9 Osteomyelitis, unspecified; R78.81 Bacteremia; N18.5 Chronic kidney disease, stage 5; E11.621 Type 2 diabetes mellitus with foot ulcer; I10 Essential (primary) hypertension; E78.5 Hyperlipidemia, unspecified; E11.51 Type 2 diabetes mellitus with diabetic peripheral angiopathy without gangrene; D72.829 Elevated white blood cell count, unspecified; R50.9 Fever, unspecified; L97.519 Non-pressure chronic ulcer of other part of right foot with unspecified severity; L97.529 Non-pressure chronic ulcer of other part of left foot with unspecified severity; E11.21 Type 2 diabetes mellitus with diabetic nephropathy; A49.02 Methicillin resistant Staphylococcus aureus infection, unspecified site; K21.9 Gastro-esophageal reflux disease without esophagitis
CPT/HCPCS: 36415; 36558; 71045-TC-FY; 73630-TC-RT-FY; 73718-TC-RT; 74176-TC; 78452-TC; 80048; 80053; 81003; 82803; 82962; 83036; 83605; 83735; 84100; 84484; 85025; 85610; 85730; 86850; 86900; 86901; 87040; 87070; 87086; 87186; 87205; 93005; 93010; 93017; 93306-TC; 93971-TC; 99285-25; A9502; C9803; G0480; J0131; J0878; J1644; J2785; U0003; U0005

== ENCOUNTER 2021-06-19 10:54 | Day surgery (SDC) | payer OTHER ==
[2021-06-19] MEDS ORDERED: SODIUM CHLORIDE IVPB ONE (12:15)
[2021-06-19] MEDS ORDERED: DAPTOMYCIN IVPB ONE (12:15)
[2021-06-19 14:53] VITALS: BP 140/70; PULSE 86; TEMP 98
== END 2021-06-19 14:54 | disposition home or self-care (01) ==
LOC: JINFUSION 10:54 → J7W 13:15 → JINFUSION 14:54
PROVIDERS: ATTEND Internal Medicine
PROC: 3E033GC Introduction of Other Therapeutic Substance into Peripheral Vein, Percutaneous Approach (ICD-10-PCS; principal; 2021-06-19)
DX: E11.621 Type 2 diabetes mellitus with foot ulcer (principal); M86.9 Osteomyelitis, unspecified; R78.81 Bacteremia; L03.115 Cellulitis of right lower limb; A49.02 Methicillin resistant Staphylococcus aureus infection, unspecified site
CPT/HCPCS: 96365; J0878

== ENCOUNTER 2021-06-21 12:25 | Day surgery (SDC) | payer OTHER ==
[~2021-06-21 12:25] MED LIST: DAPTOMYCIN IVPB ONE; SODIUM CHLORIDE IVPB ONE
[2021-06-21 14:06] VITALS: BP 145/98; PULSE 87; TEMP 98
== END 2021-06-21 14:34 | disposition home or self-care (01) ==
LOC: JINFUSION 12:25 → J7W 12:26 → JINFUSION 14:34
PROVIDERS: ATTEND Internal Medicine
PROC: 3E033GC Introduction of Other Therapeutic Substance into Peripheral Vein, Percutaneous Approach (ICD-10-PCS; principal; 2021-06-21)
DX: E11.621 Type 2 diabetes mellitus with foot ulcer (principal); M86.9 Osteomyelitis, unspecified; R78.81 Bacteremia; L03.115 Cellulitis of right lower limb; A49.02 Methicillin resistant Staphylococcus aureus infection, unspecified site
CPT/HCPCS: 96365; J0878

== ENCOUNTER 2021-06-23 12:53 | Day surgery (SDC) | payer OTHER ==
[2021-06-23] MEDS ORDERED: DAPTOMYCIN IVPB ONE (13:00)
[2021-06-23] MEDS ORDERED: SODIUM CHLORIDE IVPB ONE (13:00)
[2021-06-23 16:20] VITALS: BP 149/79; PULSE 88; TEMP 97.9
== END 2021-06-23 14:30 | disposition home or self-care (01) ==
LOC: JINFUSION 12:53 → J7W 12:54 → JINFUSION 14:30
PROVIDERS: ATTEND Internal Medicine
DX: E11.621 Type 2 diabetes mellitus with foot ulcer (principal); M86.9 Osteomyelitis, unspecified; R78.81 Bacteremia; L03.115 Cellulitis of right lower limb; A49.02 Methicillin resistant Staphylococcus aureus infection, unspecified site
CPT/HCPCS: 96365; J0878

== ENCOUNTER 2021-06-25 12:13 | Day surgery (SDC) | payer OTHER ==
[2021-06-25] MEDS ORDERED: SODIUM CHLORIDE IVPB ONE (12:30)
[2021-06-25] MEDS ORDERED: DAPTOMYCIN IVPB ONE (12:30)
[2021-06-25 13:17] LABS: HEMATOCRIT 36.6 % (35.4-49); HEMOGLOBIN 12.8 GM/dL (11.7-16.9); MCH 29.7 pg (25.7-33.7); MCHC 34.9 g/dl (32.0-35.9); MEAN CELL VOLUME 85.3 fl (80-96); MEAN PLT VOLUME 7.8 fl (7.5-11.1); PLATELET COUNT 317 10^3/uL (134-434); RBC 4.29 M/mm3 (4.00-5.60); RDW 13.6 % (11.9-15.9)
[2021-06-25 13:34] VITALS: BP 143/83; PULSE 67; TEMP 98.4
[2021-06-25 13:42] LABS: BLOOD UREA NITROGEN 51.1 mg/dL (7-18); CALCIUM 8.3 mg/dL (8.5-10.1)
[2021-06-25 13:43] LABS: ALBUMIN 2.5 g/dl (3.4-5.0)
[2021-06-25 13:47] LABS: BILIRUBIN,TOTAL 0.4 mg/dL (0.2-1); TOT PROT 7.4 g/dl (6.4-8.2)
== END 2021-06-25 14:22 | disposition home or self-care (01) ==
LOC: JINFUSION 12:13 → J7W 12:14 → JINFUSION 14:22
PROVIDERS: ATTEND Internal Medicine
DX: E11.621 Type 2 diabetes mellitus with foot ulcer (principal); M86.9 Osteomyelitis, unspecified; R78.81 Bacteremia; L03.115 Cellulitis of right lower limb; A49.02 Methicillin resistant Staphylococcus aureus infection, unspecified site
CPT/HCPCS: 36415; 80053; 82550; 82553; 85027; 96365; G0463-25; J0878

== ENCOUNTER 2021-06-27 10:34 | Day surgery (SDC) | payer OTHER ==
[2021-06-27] MEDS ORDERED: SODIUM CHLORIDE IVPB ONE (11:00)
[2021-06-27] MEDS ORDERED: DAPTOMYCIN IVPB ONE (11:00)
[2021-06-27 12:12] VITALS: BP 156/85; PULSE 75; TEMP 98.6
== END 2021-06-27 14:45 | disposition home or self-care (01) ==
LOC: JINFUSION 10:34 → J7W 10:34 → JINFUSION 14:45
PROVIDERS: ATTEND Internal Medicine
DX: E11.621 Type 2 diabetes mellitus with foot ulcer (principal); M86.9 Osteomyelitis, unspecified; R78.81 Bacteremia; L03.115 Cellulitis of right lower limb; A49.02 Methicillin resistant Staphylococcus aureus infection, unspecified site
CPT/HCPCS: 96365; J0878

== ENCOUNTER 2021-06-29 11:55 | Day surgery (SDC) | payer OTHER ==
[2021-06-29 12:43] VITALS: TEMP 98.9
[2021-06-29 13:06] VITALS: BP 147/81; PULSE 83
== END 2021-06-29 13:07 | disposition home or self-care (01) ==
LOC: JINFUSION 11:55 → J7W 11:56 → JINFUSION 13:07
PROVIDERS: ATTEND Internal Medicine
DX: E11.621 Type 2 diabetes mellitus with foot ulcer (principal); M86.9 Osteomyelitis, unspecified; R78.81 Bacteremia; L03.115 Cellulitis of right lower limb; A49.02 Methicillin resistant Staphylococcus aureus infection, unspecified site
CPT/HCPCS: 96365; J0878

== ENCOUNTER 2021-07-02 09:56 | Day surgery (SDC) | payer OTHER ==
[2021-07-02] MEDS ORDERED: DAPTOMYCIN IVPB ONE (10:00)
[2021-07-02] MEDS ORDERED: SODIUM CHLORIDE IVPB ONE (10:00)
[2021-07-02 11:15] VITALS: BP 157/90; PULSE 87; TEMP 98.5
[2021-07-02 11:23] LABS: HEMATOCRIT 34.9 % (35.4-49); HEMOGLOBIN 12.1 GM/dL (11.7-16.9); MCH 29.8 pg (25.7-33.7); MCHC 34.8 g/dl (32.0-35.9); MEAN CELL VOLUME 85.7 fl (80-96); MEAN PLT VOLUME 7.9 fl (7.5-11.1); PLATELET COUNT 296 10^3/uL (134-434); RBC 4.07 M/mm3 (4.00-5.60); RDW 13.4 % (11.9-15.9); WHITE BLOOD COUNT 7.3 K/mm3 (4.0-10.0)
[2021-07-02 11:43] LABS: ALBUMIN 2.5 g/dl (3.4-5.0); BLOOD UREA NITROGEN 45.1 mg/dL (7-18); CALCIUM 7.9 mg/dL (8.5-10.1)
[2021-07-02 11:46] LABS: CREATININE 5.6 mg/dL (0.55-1.3)
[2021-07-02 11:48] LABS: BILIRUBIN,TOTAL 0.3 mg/dL (0.2-1); TOT PROT 7.2 g/dl (6.4-8.2)
== END 2021-07-02 11:16 | disposition home or self-care (01) ==
LOC: JINFUSION 09:56 → J7W 09:56 → JINFUSION 11:16
PROVIDERS: ATTEND Internal Medicine
DX: E11.621 Type 2 diabetes mellitus with foot ulcer (principal); M86.9 Osteomyelitis, unspecified; R78.81 Bacteremia; L03.115 Cellulitis of right lower limb; A49.02 Methicillin resistant Staphylococcus aureus infection, unspecified site
CPT/HCPCS: 36415; 80053; 82550; 82553; 85027; 96365; J0878

== ENCOUNTER 2021-07-04 12:02 | Day surgery (SDC) | payer OTHER ==
[2021-07-04] MEDS ORDERED: DAPTOMYCIN IVPB ONE (12:45)
[2021-07-04] MEDS ORDERED: SODIUM CHLORIDE IVPB ONE (12:45)
[2021-07-04 13:54] VITALS: BP 195/111; PULSE 91; TEMP 98.8
== END 2021-07-04 13:40 | disposition home or self-care (01) ==
LOC: J7W 12:02 → JINFUSION 12:02
PROVIDERS: ATTEND Internal Medicine
DX: E11.621 Type 2 diabetes mellitus with foot ulcer (principal); M86.9 Osteomyelitis, unspecified; R78.81 Bacteremia; L03.115 Cellulitis of right lower limb; A49.02 Methicillin resistant Staphylococcus aureus infection, unspecified site
CPT/HCPCS: 96365; J0878

== ENCOUNTER 2021-07-06 11:30 | Day surgery (SDC) | payer OTHER ==
[2021-07-06] MEDS ORDERED: DAPTOMYCIN IVPB ONE (11:45)
[2021-07-06] MEDS ORDERED: SODIUM CHLORIDE IVPB ONE (11:45)
[2021-07-06 13:19] VITALS: BP 153/91; PULSE 88; TEMP 98.7
== END 2021-07-06 13:05 | disposition home or self-care (01) ==
LOC: JINFUSION 11:30 → J7W 11:30 → JINFUSION 13:05
PROVIDERS: ATTEND Internal Medicine
DX: E11.621 Type 2 diabetes mellitus with foot ulcer (principal); M86.9 Osteomyelitis, unspecified; R78.81 Bacteremia; L03.115 Cellulitis of right lower limb; A49.02 Methicillin resistant Staphylococcus aureus infection, unspecified site
CPT/HCPCS: 96365; J0878

== ENCOUNTER 2021-07-08 12:39 | Day surgery (SDC) | payer OTHER ==
[2021-07-08] MEDS ORDERED: DAPTOMYCIN IVPB ONE (13:00)
[2021-07-08] MEDS ORDERED: SODIUM CHLORIDE IVPB ONE (13:00)
[2021-07-08 13:10] VITALS: TEMP 98.4
[2021-07-08 13:52] VITALS: BP 145/92; PULSE 82
== END 2021-07-08 13:53 | disposition home or self-care (01) ==
LOC: J7W 12:39 → JINFUSION 12:39
PROVIDERS: ATTEND Internal Medicine
DX: E11.621 Type 2 diabetes mellitus with foot ulcer (principal); M86.9 Osteomyelitis, unspecified; R78.81 Bacteremia; L03.115 Cellulitis of right lower limb; A49.02 Methicillin resistant Staphylococcus aureus infection, unspecified site
CPT/HCPCS: 96365; J0878

== ENCOUNTER 2021-07-10 08:17 | Day surgery (SDC) | payer OTHER ==
[2021-07-10] MEDS ORDERED: DAPTOMYCIN IVPB ONE (09:30)
[2021-07-10] MEDS ORDERED: SODIUM CHLORIDE IVPB ONE (09:30)
[2021-07-10 14:02] LABS: HEMATOCRIT 34.5 % (35.4-49); HEMOGLOBIN 11.7 GM/dL (11.7-16.9); MCH 29.5 pg (25.7-33.7); MEAN CELL VOLUME 86.9 fl (80-96); MEAN PLT VOLUME 8.1 fl (7.5-11.1); PLATELET COUNT 231 10^3/uL (134-434); RBC 3.97 M/mm3 (4.00-5.60); RDW 13.9 % (11.9-15.9); WHITE BLOOD COUNT 8.5 K/mm3 (4.0-10.0)
[2021-07-10 14:20] LABS: CALCIUM 7.7 mg/dL (8.5-10.1)
[2021-07-10 14:21] LABS: ALBUMIN 2.4 g/dl (3.4-5.0); BLOOD UREA NITROGEN 45.4 mg/dL (7-18)
[2021-07-10 14:25] LABS: BILIRUBIN,TOTAL 0.2 mg/dL (0.2-1)
[2021-07-10 14:26] LABS: TOT PROT 6.6 g/dl (6.4-8.2)
[2021-07-10 16:50] VITALS: BP 180/66; PULSE 86
== END 2021-07-10 19:00 | disposition home or self-care (01) ==
LOC: JINFUSION 08:17 → J7W 11:49 → JINFUSION 19:00
PROVIDERS: ATTEND Internal Medicine
DX: E11.621 Type 2 diabetes mellitus with foot ulcer (principal); M86.9 Osteomyelitis, unspecified; R78.81 Bacteremia; L03.115 Cellulitis of right lower limb; A49.02 Methicillin resistant Staphylococcus aureus infection, unspecified site
CPT/HCPCS: 36415; 80053; 82550; 82553; 85027; 96365; J0878

== ENCOUNTER → 2021-07-17 | Day surgery (SDC) | payer OTHER | END | disposition home or self-care (01) | LOC: JRADIR 10:16 | PROVIDERS: ATTEND Internal Medicine | PROC: 02PY03Z Removal of Infusion Device from Great Vessel, Open Approach (ICD-10-PCS; principal; 2021-07-17) | DX: Z45.2 Encounter for adjustment and management of vascular access device (principal) | CPT/HCPCS: 36589 ==

== ENCOUNTER 2021-09-13 04:26 | Day surgery (SDC) | payer OTHER ==
[2021-09-12 10:45] VITALS: BMI 36.6
[2021-09-13] MEDS ORDERED: PAPAVERINE HCL 30 MG/1 ML 10 ML VIAL NR ONE (12:51)
[2021-09-13] MEDS ORDERED: HEPARIN NA (PORCINE) 5,000 UNITS/ML 1ML VIAL ONE (12:51)
[2021-09-13] MEDS ORDERED: LIDOCAINE HCL 1%, 10 MG/ML (20ML VIAL) ONE (12:51)
[2021-09-13] MEDS ORDERED: POVIDONE-IODINE OINTMENT 10% - 28.4 GM TUBE ONE (12:51)
[2021-09-13] MEDS ORDERED: PROPOFOL 20 ML ONE ×2 (14:00)
[2021-09-13] MEDS ORDERED: MIDAZOLAM HCL 2 MG/2 ML SINGLE DOSE VIAL ONE ×2 (14:00)
[2021-09-13] MEDS ORDERED: ceFAZolin SODIUM 1 GM VIAL IVPB ONE (18:05)
[2021-09-13] MEDS ORDERED: LIDOCAINE HCL 1%, 10 MG/ML (20ML VIAL) INF ONE (18:45)
[2021-09-13] MEDS ORDERED: ONDANSETRON 4 MG/2 ML VIAL IVPUSH PRN (20:20)
[2021-09-13] MEDS ORDERED: oxyCODONE HCL 5 MG TABLET PO PRN (20:20)
[2021-09-13] MEDS ORDERED: SODIUM CHLORIDE 1,000 ML IV SCH (20:30)
[2021-09-13] MEDS ORDERED: oxyCODONE HCL 5 MG TABLET ONE (20:34)
[2021-09-13 22:41] VITALS: BP 157/90; PULSE 71; TEMP 97.9
== END 2021-09-13 23:30 | disposition home or self-care (01) ==
LOC: JASU-SURG 04:26 → J6S 21:00 → JASU-SURG 23:30
PROVIDERS: ATTEND Surgery
PROC: 031C3ZF Bypass Left Radial Artery to Lower Arm Vein, Percutaneous Approach (ICD-10-PCS; principal; 2021-09-13 15:00)
DX: I12.0 Hypertensive chronic kidney disease with stage 5 chronic kidney disease or end stage renal disease (principal); E11.22 Type 2 diabetes mellitus with diabetic chronic kidney disease; N18.5 Chronic kidney disease, stage 5; Z96.41 Presence of insulin pump (external) (internal)
CPT/HCPCS: 36415; 82962; 84132; 94760; J1644

== ENCOUNTER 2021-09-27 11:40 | Inpatient (IN) | payer OTHER ==
[2021-09-27] MEDS ORDERED: SODIUM CHLORIDE 250 ML IV PRN ×2 (12:42→17:26)
[2021-09-27 13:29] LABS: BASO % 0.5 % (0-2.0); EOS % 5.4 % (0-4.5); HEMATOCRIT 31.8 % (35.4-49); LYMPH % 10.9 % (8-40); MCH 29.8 pg (25.7-33.7); MCHC 34.7 g/dl (32.0-35.9); MEAN CELL VOLUME 85.9 fl (80-96); MEAN PLT VOLUME 7.4 fl (7.5-11.1); MONO % 7.7 % (3.8-10.2); NEUT % 75.5 % (42.8-82.8); PLATELET COUNT 252 10^3/uL (134-434); RDW 13.5 % (11.9-15.9); WHITE BLOOD COUNT 9.5 K/mm3 (4.0-10.0)
[2021-09-27 13:43] LABS: CHLORIDE 103 mmol/L (98-107); SODIUM 137 mmol/L (136-145)
[2021-09-27 13:48] LABS: ALBUMIN 1.9 g/dl (3.4-5.0); ANION GAP 11 MMOL/L (8-16); BLOOD UREA NITROGEN 65.9 mg/dL (7-18); CO2 23 mmol/L (21-32); GLUCOSE,RANDOM 249 mg/dL (74-106)
[2021-09-27 13:51] LABS: SGOT/AST 33 U/L (15-37); SGPT/ALT 12 U/L (13-61)
[2021-09-27 13:52] LABS: BILIRUBIN,TOTAL 0.2 mg/dL (0.2-1); TOT PROT 5.9 g/dl (6.4-8.2)
[2021-09-27 13:54] LABS: ALK PHOS 104 U/L (45-117)
[2021-09-27 14:07] LABS: CALCIUM 6.7 mg/dL (8.5-10.1); CREATININE 10.9 mg/dL (0.55-1.3)
[2021-09-27 14:24] LABS: ACTIVATED PTT 35.1 SECONDS (25.2-36.5); INR 1.06 (0.83-1.09); PROTHROMBIN TIME (PATIENT) 11.9 SEC (9.7-13.0)
[2021-09-27] MEDS: INSULIN SLIDING SCALE (NOVOLOG) 1 VIAL SQ SCH (22:35)
[2021-09-27] MEDS: ATORVASTATIN CA 80 MG TABLET (FP) PO SCH (22:36)
[2021-09-27] MEDS: hydrALAZINE HCL 25 MG TABLET (FP) PO SCH (22:36)
[2021-09-27] MEDS: METOPROLOL TARTRATE 50 MG TABLET (FP) PO SCH (22:36)
[2021-09-27] MEDS: HEPARIN NA (PORCINE) 5,000 UNITS/ML 1ML VIAL SQ SCH (22:36)
[2021-09-28 02:05] VITALS: BMI 36.6
[2021-09-28] MEDS: INSULIN SLIDING SCALE (NOVOLOG) 1 VIAL SQ SCH ×4 (06:30→22:51)
[2021-09-28 07:38] LABS: BASO % 1.8 % (0-2.0); EOS % 5.8 % (0-4.5); HEMATOCRIT 34.5 % (35.4-49); HEMOGLOBIN 11.7 GM/dL (11.7-16.9); LYMPH % 14.9 % (8-40); MCH 29.3 pg (25.7-33.7); MEAN CELL VOLUME 86.3 fl (80-96); MEAN PLT VOLUME 7.7 fl (7.5-11.1); MONO % 9.5 % (3.8-10.2); PLATELET COUNT 275 10^3/uL (134-434); RDW 13.3 % (11.9-15.9); WHITE BLOOD COUNT 8.2 K/mm3 (4.0-10.0)
[2021-09-28 08:22] LABS: ALK PHOS 102 U/L (45-117); ANION GAP 9 MMOL/L (8-16); BILIRUBIN,TOTAL 0.3 mg/dL (0.2-1); BLOOD UREA NITROGEN 47.6 mg/dL (7-18); CALCIUM 7.2 mg/dL (8.5-10.1); CHLORIDE 104 mmol/L (98-107); CO2 26 mmol/L (21-32); CREATININE 8.9 mg/dL (0.55-1.3); GLUCOSE,RANDOM 155 mg/dL (74-106); SGOT/AST 28 U/L (15-37); SGPT/ALT 9 U/L (13-61); SODIUM 140 mmol/L (136-145); TOT PROT 6.3 g/dl (6.4-8.2)
[2021-09-28] MEDS: TAMSULOSIN HCL 0.4 MG CAP PO SCH (10:39)
[2021-09-28] MEDS: ISOSORBIDE MONONITRATE 30 MG TAB.SR.24H (FP) PO SCH (10:39)
[2021-09-28] MEDS: amLODIPine BESYLATE 5 MG TABLET (FP) PO SCH (10:39)
[2021-09-28] MEDS: ASPIRIN COATED 81 MG TABLET.EC PO SCH (10:39)
[2021-09-28] MEDS: hydrALAZINE HCL 25 MG TABLET (FP) PO SCH ×2 (10:39→22:52)
[2021-09-28] MEDS: METOPROLOL TARTRATE 50 MG TABLET (FP) PO SCH ×2 (10:39→22:52)
[2021-09-28] MEDS: HEPARIN NA (PORCINE) 5,000 UNITS/ML 1ML VIAL SQ SCH ×2 (10:39→22:56)
[2021-09-28] MEDS: ACETAMINOPHEN 325 MG TABLET (FP) PO PRN ×2 (11:00→22:57)
[2021-09-28] MEDS: LOSARTAN POTASSIUM 25 MG TABLET PO SCH (11:53)
[2021-09-28 12:03] LABS: PHOSPHOROUS 7.2 mg/dL (2.5-4.9)
[2021-09-28] MEDS: ATORVASTATIN CA 80 MG TABLET (FP) PO SCH (22:52)
[2021-09-28] MEDS ORDERED: traMADol HCL 50 MG TABLET PO ONE (23:33)
[2021-09-29] MEDS: INSULIN SLIDING SCALE (NOVOLOG) 1 VIAL SQ SCH ×4 (06:14→22:09)
[2021-09-29] MEDS: TAMSULOSIN HCL 0.4 MG CAP PO SCH (09:00)
[2021-09-29] MEDS: ASPIRIN COATED 81 MG TABLET.EC PO SCH (09:37)
[2021-09-29] MEDS: amLODIPine BESYLATE 5 MG TABLET (FP) PO SCH (09:37)
[2021-09-29] MEDS: ISOSORBIDE MONONITRATE 30 MG TAB.SR.24H (FP) PO SCH (09:37)
[2021-09-29] MEDS: hydrALAZINE HCL 25 MG TABLET (FP) PO SCH ×2 (09:37→22:08)
[2021-09-29] MEDS: LOSARTAN POTASSIUM 25 MG TABLET PO SCH (09:37)
[2021-09-29] MEDS: METOPROLOL TARTRATE 50 MG TABLET (FP) PO SCH ×2 (09:37→22:08)
[2021-09-29] MEDS: HEPARIN NA (PORCINE) 5,000 UNITS/ML 1ML VIAL SQ SCH ×2 (09:38→22:09)
[2021-09-29 10:41] LABS: CHLORIDE 101 mmol/L (98-107); SODIUM 138 mmol/L (136-145)
[2021-09-29] MEDS ORDERED: SODIUM CHLORIDE 250 ML IV PRN (10:41)
[2021-09-29 10:44] LABS: ALBUMIN 1.8 g/dl (3.4-5.0); ANION GAP 10 MMOL/L (8-16); BLOOD UREA NITROGEN 38.7 mg/dL (7-18); CALCIUM 7.8 mg/dL (8.5-10.1); CO2 27 mmol/L (21-32); GLUCOSE,RANDOM 178 mg/dL (74-106)
[2021-09-29 10:47] LABS: SGOT/AST 24 U/L (15-37); SGPT/ALT 8 U/L (13-61)
[2021-09-29 10:49] LABS: BILIRUBIN,TOTAL 0.3 mg/dL (0.2-1)
[2021-09-29 10:50] LABS: ALK PHOS 99 U/L (45-117)
[2021-09-29 10:51] LABS: CREATININE 7.9 mg/dL (0.55-1.3)
[2021-09-29] MEDS: GABAPENTIN 100 MG CAPSULE PO SCH ×2 (14:41→22:08)
[2021-09-29] MEDS ORDERED: INSULIN (LEVEMIR) 100 UNITS/ML UNITS SQ SCH (22:00)
[2021-09-29] MEDS: ATORVASTATIN CA 80 MG TABLET (FP) PO SCH (22:08)
[2021-09-29] MEDS: INSULIN (LEVEMIR) 100 UNITS/ML UNITS SQ SCH (22:10)
[2021-09-29] MEDS: ACETAMINOPHEN 325 MG TABLET (FP) PO PRN (22:16)
[2021-09-30] MEDS: GABAPENTIN 100 MG CAPSULE PO SCH ×3 (06:02→21:07)
[2021-09-30] MEDS: INSULIN SLIDING SCALE (NOVOLOG) 1 VIAL SQ SCH ×4 (06:02→21:12)
[2021-09-30] MEDS: INSULIN (LEVEMIR) 100 UNITS/ML UNITS SQ SCH ×2 (06:04→21:13)
[2021-09-30] MEDS ORDERED: INSULIN (LEVEMIR) 100 UNITS/ML UNITS SQ ONE (07:01)
[2021-09-30] MEDS ORDERED: INSULIN SLIDING SCALE (NOVOLOG) 1 VIAL SQ ONE (07:01)
[2021-09-30 08:17] LABS: HEMOGLOBIN 10.8 GM/dL (11.7-16.9); MCH 29.2 pg (25.7-33.7); MCHC 33.6 g/dl (32.0-35.9); MEAN CELL VOLUME 86.7 fl (80-96); MEAN PLT VOLUME 7.7 fl (7.5-11.1); PLATELET COUNT 250 10^3/uL (134-434); WHITE BLOOD COUNT 7.3 K/mm3 (4.0-10.0)
[2021-09-30 08:19] LABS: CHLORIDE 103 mmol/L (98-107); SODIUM 140 mmol/L (136-145)
[2021-09-30 08:20] LABS: CALCIUM 7.6 mg/dL (8.5-10.1)
[2021-09-30 08:21] LABS: ANION GAP 10 MMOL/L (8-16); BLOOD UREA NITROGEN 46.3 mg/dL (7-18); CO2 26 mmol/L (21-32); GLUCOSE,RANDOM 151 mg/dL (74-106)
[2021-09-30 08:25] LABS: PHOSPHOROUS 6.6 mg/dL (2.5-4.9)
[2021-09-30 08:33] LABS: CREATININE 8.5 mg/dL (0.55-1.3)
[2021-09-30] MEDS: hydrALAZINE HCL 25 MG TABLET (FP) PO SCH ×2 (11:17→21:08)
[2021-09-30] MEDS: amLODIPine BESYLATE 5 MG TABLET (FP) PO SCH (11:17)
[2021-09-30] MEDS: TAMSULOSIN HCL 0.4 MG CAP PO SCH (11:17)
[2021-09-30] MEDS: ASPIRIN COATED 81 MG TABLET.EC PO SCH (11:17)
[2021-09-30] MEDS: LOSARTAN POTASSIUM 25 MG TABLET PO SCH (11:17)
[2021-09-30] MEDS: METOPROLOL TARTRATE 50 MG TABLET (FP) PO SCH ×2 (11:17→21:08)
[2021-09-30] MEDS: ISOSORBIDE MONONITRATE 30 MG TAB.SR.24H (FP) PO SCH (11:17)
[2021-09-30] MEDS: HEPARIN NA (PORCINE) 5,000 UNITS/ML 1ML VIAL SQ SCH ×2 (11:18→21:08)
[2021-09-30] MEDS: ATORVASTATIN CA 80 MG TABLET (FP) PO SCH (21:08)
[2021-10-01] MEDS: GABAPENTIN 100 MG CAPSULE PO SCH ×3 (06:06→22:18)
[2021-10-01] MEDS: INSULIN (LEVEMIR) 100 UNITS/ML UNITS SQ SCH ×2 (06:09→22:18)
[2021-10-01] MEDS: INSULIN SLIDING SCALE (NOVOLOG) 1 VIAL SQ SCH ×4 (06:09→22:17)
[2021-10-01 09:43] LABS: BASO % 2.1 % (0-2.0); EOS % 4.5 % (0-4.5); HEMATOCRIT 34.3 % (35.4-49); HEMOGLOBIN 11.4 GM/dL (11.7-16.9); LYMPH % 18.8 % (8-40); MCH 28.8 pg (25.7-33.7); MCHC 33.3 g/dl (32.0-35.9); MEAN CELL VOLUME 86.5 fl (80-96); MEAN PLT VOLUME 7.5 fl (7.5-11.1); MONO % 9.1 % (3.8-10.2); NEUT % 65.5 % (42.8-82.8); PLATELET COUNT 268 10^3/uL (134-434); RBC 3.97 M/mm3 (4.00-5.60)
[2021-10-01 09:51] LABS: BLOOD UREA NITROGEN 31.2 mg/dL (7-18); CALCIUM 7.6 mg/dL (8.5-10.1)
[2021-10-01 09:54] LABS: CREATININE 7.3 mg/dL (0.55-1.3)
[2021-10-01] MEDS: TAMSULOSIN HCL 0.4 MG CAP PO SCH (09:56)
[2021-10-01] MEDS: HEPARIN NA (PORCINE) 5,000 UNITS/ML 1ML VIAL SQ SCH ×2 (09:56→22:18)
[2021-10-01] MEDS: ISOSORBIDE MONONITRATE 30 MG TAB.SR.24H (FP) PO SCH (09:56)
[2021-10-01] MEDS: ASPIRIN COATED 81 MG TABLET.EC PO SCH (09:56)
[2021-10-01] MEDS: METOPROLOL TARTRATE 50 MG TABLET (FP) PO SCH ×2 (09:56→22:18)
[2021-10-01] MEDS: LOSARTAN POTASSIUM 25 MG TABLET PO SCH (09:56)
[2021-10-01] MEDS: amLODIPine BESYLATE 5 MG TABLET (FP) PO SCH (09:56)
[2021-10-01] MEDS: hydrALAZINE HCL 25 MG TABLET (FP) PO SCH ×2 (09:56→22:18)
[2021-10-01] MEDS: ATORVASTATIN CA 80 MG TABLET (FP) PO SCH (22:18)
[2021-10-02] MEDS: INSULIN SLIDING SCALE (NOVOLOG) 1 VIAL SQ SCH ×3 (06:36→16:38)
[2021-10-02] MEDS: GABAPENTIN 100 MG CAPSULE PO SCH ×2 (06:37→13:16)
[2021-10-02] MEDS: INSULIN (LEVEMIR) 100 UNITS/ML UNITS SQ SCH (06:37)
[2021-10-02 07:03] LABS: BASO % 1.6 % (0-2.0); EOS % 4.9 % (0-4.5); HEMATOCRIT 31.5 % (35.4-49); LYMPH % 18.4 % (8-40); MCH 29.4 pg (25.7-33.7); MCHC 34.8 g/dl (32.0-35.9); MEAN CELL VOLUME 84.4 fl (80-96); MEAN PLT VOLUME 7.8 fl (7.5-11.1); MONO % 8.2 % (3.8-10.2); NEUT % 66.9 % (42.8-82.8); PLATELET COUNT 260 10^3/uL (134-434); RBC 3.74 M/mm3 (4.00-5.60); RDW 13.1 % (11.9-15.9); WHITE BLOOD COUNT 8.3 K/mm3 (4.0-10.0)
[2021-10-02 07:20] LABS: CHLORIDE 107 mmol/L (98-107); SODIUM 141 mmol/L (136-145)
[2021-10-02 07:23] LABS: CALCIUM 7.5 mg/dL (8.5-10.1)
[2021-10-02 07:24] LABS: ANION GAP 9 MMOL/L (8-16); BLOOD UREA NITROGEN 35.9 mg/dL (7-18); CO2 25 mmol/L (21-32); GLUCOSE,RANDOM 140 mg/dL (74-106)
[2021-10-02] MEDS ORDERED: SODIUM CHLORIDE 250 ML IV PRN (09:29)
[2021-10-02] MEDS: TAMSULOSIN HCL 0.4 MG CAP PO SCH (13:13)
[2021-10-02] MEDS: METOPROLOL TARTRATE 50 MG TABLET (FP) PO SCH (13:16)
[2021-10-02] MEDS: amLODIPine BESYLATE 5 MG TABLET (FP) PO SCH (13:16)
[2021-10-02] MEDS: ISOSORBIDE MONONITRATE 30 MG TAB.SR.24H (FP) PO SCH (13:17)
[2021-10-02] MEDS: HEPARIN NA (PORCINE) 5,000 UNITS/ML 1ML VIAL SQ SCH (13:17)
[2021-10-02] MEDS: ASPIRIN COATED 81 MG TABLET.EC PO SCH (13:17)
[2021-10-02] MEDS: hydrALAZINE HCL 25 MG TABLET (FP) PO SCH (13:17)
[2021-10-02] MEDS: LOSARTAN POTASSIUM 25 MG TABLET PO SCH (13:17)
[2021-10-02 14:29] VITALS: BP 144/94; PULSE 78; TEMP 98.2
== END 2021-10-02 18:04 | disposition home or self-care (01) | DRG 682 ==
LOC: JER 11:40 → JERBED 12:42 → J4S 20:41
PROVIDERS: ADMIT Family Medicine; ATTEND Family Medicine
PROC: 5A1D70Z Performance of Urinary Filtration, Intermittent, Less than 6 Hours Per Day (ICD-10-PCS; principal; 2021-09-27)
PROC: 5A1D70Z Performance of Urinary Filtration, Intermittent, Less than 6 Hours Per Day (ICD-10-PCS; 2021-09-28)
PROC: 5A1D70Z Performance of Urinary Filtration, Intermittent, Less than 6 Hours Per Day (ICD-10-PCS; 2021-09-30)
PROC: 5A1D70Z Performance of Urinary Filtration, Intermittent, Less than 6 Hours Per Day (ICD-10-PCS; 2021-10-02)
DX: I12.0 Hypertensive chronic kidney disease with stage 5 chronic kidney disease or end stage renal disease (principal); N18.6 End stage renal disease; E78.00 Pure hypercholesterolemia, unspecified; I25.2 Old myocardial infarction; N40.0 Benign prostatic hyperplasia without lower urinary tract symptoms; K21.9 Gastro-esophageal reflux disease without esophagitis; E11.42 Type 2 diabetes mellitus with diabetic polyneuropathy; I25.10 Atherosclerotic heart disease of native coronary artery without angina pectoris; E11.22 Type 2 diabetes mellitus with diabetic chronic kidney disease; Z99.2 Dependence on renal dialysis; E66.9 Obesity, unspecified; Z68.36 Body mass index [BMI] 36.0-36.9, adult
CPT/HCPCS: 36415; 71045-TC-FY; 80048; 80053; 82550; 82553; 82962; 83036; 84100; 84484; 85025; 85027; 85610; 85730; 86705; 86850; 86900; 86901; 87340; 87350; 87517; 87522; 93005; 93010; 99285-25; C9803; J1644; U0003; U0005

== ENCOUNTER 2021-10-17 15:13 | Inpatient (IN) | payer OTHER ==
[2021-10-17 17:08] LABS: BASO % 1.5 % (0-2.0); EOS % 6.6 % (0-4.5); HEMATOCRIT 31.9 % (35.4-49); MCH 29.8 pg (25.7-33.7); MCHC 34.6 g/dl (32.0-35.9); MEAN CELL VOLUME 86.3 fl (80-96); MEAN PLT VOLUME 7.9 fl (7.5-11.1); MONO % 10.2 % (3.8-10.2); NEUT % 61.7 % (42.8-82.8); PLATELET COUNT 265 10^3/uL (134-434); RDW 13.2 % (11.9-15.9); WHITE BLOOD COUNT 6.8 K/mm3 (4.0-10.0)
[2021-10-17] MEDS ORDERED: PIPERACILLIN/TAZOB 3.375 GM 3.375 GM in DEXTROSE 5%-WATER - 50 ML IVPB ONE (17:08)
[2021-10-17] MEDS ORDERED: PIPERACILLIN/TAZOB 3.375 GM 3.375 GM/50 ML BAG IVPB ONE (17:26)
[2021-10-17 17:31] LABS: INR 1.03 (0.83-1.09)
[2021-10-17 17:34] LABS: ACTIVATED PTT 33.7 SECONDS (25.2-36.5)
[2021-10-17 17:44] LABS: ALBUMIN 2.1 g/dl (3.4-5.0); BLOOD UREA NITROGEN 22.1 mg/dL (7-18); CALCIUM 7.9 mg/dL (8.5-10.1); MAGNESIUM 2.1 mg/dL (1.8-2.4)
[2021-10-17 17:47] LABS: CREATININE 7.1 mg/dL (0.55-1.3); PHOSPHOROUS 4.2 mg/dL (2.5-4.9)
[2021-10-17 17:49] LABS: BILIRUBIN,TOTAL 0.3 mg/dL (0.2-1); TOT PROT 6.5 g/dl (6.4-8.2)
[2021-10-17] MEDS ORDERED: ACETAMINOPHEN 325 MG TABLET (FP) PO PRN (20:45)
[2021-10-17] MEDS ORDERED: POLYETHYLENE GLYCOL 3350 119 GM BTL PO PRN (20:45)
[2021-10-17] MEDS ORDERED: HEPARIN NA (PORCINE) 5,000 UNITS/ML 1ML VIAL ONE (23:44)
[2021-10-17] MEDS: HEPARIN NA (PORCINE) 5,000 UNITS/ML 1ML VIAL SQ SCH (23:54)
[2021-10-18] MEDS ORDERED: PIPERACILLIN/TAZOBACTAM 2.25 GM VIAL IVPB ONE ×2 (01:48→16:49)
[2021-10-18] MEDS ORDERED: DEXTROSE 5%-WATER - 50 ML IVPB ONE ×2 (01:48→16:49)
[2021-10-18] MEDS: PIPERACILLIN/TAZOB 2.25 GM 2.25 GM in DEXTROSE 5%-WATER - 50 ML IVPB SCH ×3 (01:55→17:34)
[2021-10-18] MEDS: hydrALAZINE HCL 25 MG TABLET (FP) PO SCH ×3 (01:55→21:12)
[2021-10-18 02:53] VITALS: BMI 33.5
[2021-10-18] MEDS: HEPARIN NA (PORCINE) 5,000 UNITS/ML 1ML VIAL SQ SCH ×3 (06:35→21:12)
[2021-10-18] MEDS: INSULIN SLIDING SCALE (NOVOLOG) 1 VIAL SQ SCH ×5 (06:36→21:20)
[2021-10-18] MEDS: FUROSEMIDE 40 MG TABLET (FP) PO SCH ×2 (06:36→16:51)
[2021-10-18 09:14] LABS: EOS % 5.5 % (0-4.5); HEMATOCRIT 32.2 % (35.4-49); HEMOGLOBIN 11.2 GM/dL (11.7-16.9); LYMPH % 9.5 % (8-40); MCH 29.9 pg (25.7-33.7); MCHC 34.7 g/dl (32.0-35.9); MEAN CELL VOLUME 86.2 fl (80-96); MEAN PLT VOLUME 8.1 fl (7.5-11.1); MONO % 9.8 % (3.8-10.2); NEUT % 73.2 % (42.8-82.8); PLATELET COUNT 231 10^3/uL (134-434); RBC 3.73 M/mm3 (4.00-5.60); WHITE BLOOD COUNT 6.8 K/mm3 (4.0-10.0)
[2021-10-18 09:23] LABS: CHLORIDE 103 mmol/L (98-107); SODIUM 138 mmol/L (136-145)
[2021-10-18 09:35] LABS: ANION GAP 7 MMOL/L (8-16); BLOOD UREA NITROGEN 35.6 mg/dL (7-18); CALCIUM 8.1 mg/dL (8.5-10.1); CO2 27 mmol/L (21-32); GLUCOSE,RANDOM 226 mg/dL (74-106)
[2021-10-18 09:41] LABS: CREATININE 8.2 mg/dL (0.55-1.3)
[2021-10-18] MEDS ORDERED: SODIUM CHLORIDE 250 ML IV PRN (11:27)
[2021-10-18] MEDS: TAMSULOSIN HCL 0.4 MG CAP PO SCH (12:07)
[2021-10-18] MEDS: CHLORTHALIDONE 25 MG TABLET PO SCH (12:08)
[2021-10-18] MEDS: LOSARTAN POTASSIUM 25 MG TABLET PO SCH ×2 (12:08→16:53)
[2021-10-18] MEDS: amLODIPine BESYLATE 5 MG TABLET (FP) PO SCH ×2 (12:09→16:53)
[2021-10-18] MEDS: COLLAGENASE CLOSTRIDIUM HIST. 30 GRAMS TUBE TP SCH (16:54)
[2021-10-18] MEDS: ATORVASTATIN CA 80 MG TABLET (FP) PO SCH (21:12)
[2021-10-18] MEDS ORDERED: INSULIN (NOVOLOG) ASPART 100 UNITS/ML 10ML VIAL ONE (21:14)
[2021-10-18] MEDS: AMITRIPTYLINE HCL 10 MG TABLET PO SCH (22:50)
[2021-10-18] MEDS ORDERED: VANCOMYCIN 1 GRAM (PRE-DOCKED) 1,000 MG/250 ML BAG IVPB ONE (22:58)
[2021-10-19] MEDS ORDERED: PIPERACILLIN/TAZOBACTAM 2.25 GM VIAL IVPB ONE ×4 (01:24→18:30)
[2021-10-19] MEDS ORDERED: DEXTROSE 5%-WATER - 50 ML IVPB ONE ×4 (01:26→18:30)
[2021-10-19] MEDS ORDERED: PIPERACILLIN/TAZOB 2.25 GM 2.25 GM in DEXTROSE 5%-WATER - 50 ML IVPB SCH (02:00)
[2021-10-19] MEDS: PIPERACILLIN/TAZOB 2.25 GM 2.25 GM in DEXTROSE 5%-WATER - 50 ML IVPB SCH ×3 (02:08→18:33)
[2021-10-19] MEDS: FUROSEMIDE 40 MG TABLET (FP) PO SCH ×2 (06:43→14:30)
[2021-10-19] MEDS: HEPARIN NA (PORCINE) 5,000 UNITS/ML 1ML VIAL SQ SCH ×3 (06:43→21:39)
[2021-10-19] MEDS: INSULIN (LEVEMIR) 100 UNITS/ML UNITS SQ SCH (06:49)
[2021-10-19] MEDS: INSULIN SLIDING SCALE (NOVOLOG) 1 VIAL SQ SCH ×4 (06:49→21:43)
[2021-10-19] MEDS: LOSARTAN POTASSIUM 25 MG TABLET PO SCH (10:23)
[2021-10-19] MEDS: amLODIPine BESYLATE 5 MG TABLET (FP) PO SCH (10:23)
[2021-10-19] MEDS: COLLAGENASE CLOSTRIDIUM HIST. 30 GRAMS TUBE TP SCH (10:23)
[2021-10-19] MEDS: hydrALAZINE HCL 25 MG TABLET (FP) PO SCH ×2 (10:23→21:39)
[2021-10-19] MEDS: CHLORTHALIDONE 25 MG TABLET PO SCH (10:23)
[2021-10-19] MEDS: TAMSULOSIN HCL 0.4 MG CAP PO SCH (10:23)
[2021-10-19] MEDS ORDERED: INSULIN (NOVOLOG) ASPART 100 UNITS/ML 10ML VIAL ONE (11:55)
[2021-10-19] MEDS: GABAPENTIN 100 MG CAPSULE PO SCH ×2 (14:30→21:39)
[2021-10-19] MEDS ORDERED: PT OWN MED DRAWER 7, Y5N ONE (20:25)
[2021-10-19] MEDS: AMITRIPTYLINE HCL 10 MG TABLET PO SCH (21:39)
[2021-10-19] MEDS: ATORVASTATIN CA 80 MG TABLET (FP) PO SCH (21:39)
[2021-10-19] MEDS ORDERED: INSULIN (LEVEMIR) 100 UNITS/ML UNITS SQ SCH (22:00)
[2021-10-20] MEDS ORDERED: PIPERACILLIN/TAZOBACTAM 2.25 GM VIAL IVPB ONE ×2 (00:59→10:46)
[2021-10-20] MEDS ORDERED: DEXTROSE 5%-WATER - 50 ML IVPB ONE ×2 (01:00→10:46)
[2021-10-20] MEDS: PIPERACILLIN/TAZOB 2.25 GM 2.25 GM in DEXTROSE 5%-WATER - 50 ML IVPB SCH ×2 (02:03→10:54)
[2021-10-20] MEDS: HEPARIN NA (PORCINE) 5,000 UNITS/ML 1ML VIAL SQ SCH ×2 (05:53→15:11)
[2021-10-20] MEDS: GABAPENTIN 100 MG CAPSULE PO SCH ×2 (05:54→15:10)
[2021-10-20] MEDS: FUROSEMIDE 40 MG TABLET (FP) PO SCH ×2 (05:54→15:10)
[2021-10-20] MEDS: INSULIN SLIDING SCALE (NOVOLOG) 1 VIAL SQ SCH ×2 (06:46→12:20)
[2021-10-20] MEDS: INSULIN (LEVEMIR) 100 UNITS/ML UNITS SQ SCH (06:46)
[2021-10-20] MEDS ORDERED: SODIUM CHLORIDE 250 ML IV PRN (09:12)
[2021-10-20] MEDS ORDERED: COLLAGENASE CLOSTRIDIUM HIST. 30 GRAMS TUBE TP SCH (10:00)
[2021-10-20] MEDS: LOSARTAN POTASSIUM 25 MG TABLET PO SCH (10:53)
[2021-10-20] MEDS: TAMSULOSIN HCL 0.4 MG CAP PO SCH (10:53)
[2021-10-20] MEDS: amLODIPine BESYLATE 5 MG TABLET (FP) PO SCH (10:53)
[2021-10-20] MEDS: hydrALAZINE HCL 25 MG TABLET (FP) PO SCH (10:53)
[2021-10-20] MEDS: CHLORTHALIDONE 25 MG TABLET PO SCH (10:54)
[2021-10-20 14:47] VITALS: BP 139/86; PULSE 75; TEMP 98.4
[2021-10-20] MEDS ORDERED: INSULIN (LEVEMIR) 100 UNITS/ML UNITS SQ SCH ×2 (14:57)
[2021-10-20] MEDS ORDERED: INSULIN SLIDING SCALE (NOVOLOG) 1 VIAL SQ SCH (14:58)
== END 2021-10-20 17:37 | disposition home or self-care (01) | DRG 638 ==
LOC: JER 15:13 → JERBED 19:30 → J8W 10-18 00:07
PROVIDERS: ADMIT Family Medicine; ATTEND Family Medicine
DX: E10.621 Type 1 diabetes mellitus with foot ulcer (principal); L03.90 Cellulitis, unspecified; I13.2 Hypertensive heart and chronic kidney disease with heart failure and with stage 5 chronic kidney disease, or end stage renal disease; L97.909 Non-pressure chronic ulcer of unspecified part of unspecified lower leg with unspecified severity; E10.40 Type 1 diabetes mellitus with diabetic neuropathy, unspecified; N18.6 End stage renal disease; E10.65 Type 1 diabetes mellitus with hyperglycemia; I50.9 Heart failure, unspecified; Z79.4 Long term (current) use of insulin; Z99.2 Dependence on renal dialysis; L98.499 Non-pressure chronic ulcer of skin of other sites with unspecified severity; I73.9 Peripheral vascular disease, unspecified; L97.529 Non-pressure chronic ulcer of other part of left foot with unspecified severity; E10.22 Type 1 diabetes mellitus with diabetic chronic kidney disease; I25.2 Old myocardial infarction; I25.10 Atherosclerotic heart disease of native coronary artery without angina pectoris; E78.5 Hyperlipidemia, unspecified; K21.9 Gastro-esophageal reflux disease without esophagitis; N40.0 Benign prostatic hyperplasia without lower urinary tract symptoms; L97.509 Non-pressure chronic ulcer of other part of unspecified foot with unspecified severity
CPT/HCPCS: 11042; 36415; 71045-TC-FY; 73610-TC-LT-FY; 73630-TC-LT; 73630-TC-RT-FY; 73718-TC-LT; 80048; 80053; 82550; 82553; 82962; 83036; 83735; 84100; 84484; 85025; 85610; 85651; 85730; 86140; 86850; 86900; 86901; 87040; 87070; 87186; 87205; 93005; 93010; 99285-25; C9803; G0480; J1644; U0003; U0005

== ENCOUNTER 2022-03-21 14:41 | Inpatient (IN) | payer OTHER ==
[2022-03-21 14:51] VITALS: BMI 33.6
[2022-03-21 15:50] LABS: BASO % 2.9 % (0-2.0); EOS % 4.4 % (0-4.5); HEMATOCRIT 29.8 % (35.4-49); HEMOGLOBIN 10.4 GM/dL (11.7-16.9); LYMPH % 14.7 % (8-40); MCH 31.5 pg (25.7-33.7); MCHC 34.9 g/dl (32.0-35.9); MEAN CELL VOLUME 90.3 fl (80-96); MEAN PLT VOLUME 7.8 fl (7.5-11.1); MONO % 9.1 % (3.8-10.2); NEUT % 68.9 % (42.8-82.8); PLATELET COUNT 233 10^3/uL (134-434); RDW 13.1 % (11.9-15.9); WHITE BLOOD COUNT 9.6 K/mm3 (4.0-10.0)
[2022-03-21 16:07] LABS: CHLORIDE 101 mmol/L (98-107); SODIUM 136 mmol/L (136-145)
[2022-03-21 16:09] LABS: ALBUMIN 3.4 g/dl (3.4-5.0); ANION GAP 10 MMOL/L (8-16); BLOOD UREA NITROGEN 41.4 mg/dL (7-18); CALCIUM 8.6 mg/dL (8.5-10.1); CO2 24 mmol/L (21-32); GLUCOSE,RANDOM 324 mg/dL (74-106)
[2022-03-21 16:12] LABS: SGOT/AST 14 U/L (15-37); SGPT/ALT 16 U/L (13-61)
[2022-03-21 16:14] LABS: BILIRUBIN,TOTAL 0.3 mg/dL (0.2-1); TOT PROT 7.4 g/dl (6.4-8.2)
[2022-03-21 16:15] LABS: ALK PHOS 92 U/L (45-117)
[2022-03-21] MEDS ORDERED: VANCOMYCIN HCL 1,500 MG in DEXTROSE 5%-WATER - 500 ML IVPB ONE (16:19)
[2022-03-21] MEDS ORDERED: PIPERACILLIN/TAZOB 4.5 GM 4.5 GM in DEXTROSE 5%-WATER 100 ML IVPB ONE (16:19)
[2022-03-21 16:29] LABS: CREATININE 9.6 mg/dL (0.55-1.3)
[2022-03-21] MEDS ORDERED: ACETAMINOPHEN 1000 MG/100 ML BAG IVPB ONE (17:13)
[2022-03-21] MEDS ORDERED: ACETAMINOPHEN INJECTION 100 ML IVPB ONE (17:15)
[2022-03-21] MEDS ORDERED: PIPERACILLIN/TAZOB 4.5 GM 4.5 GM/100 ML BAG IVPB ONE (17:16)
[2022-03-21] MEDS ORDERED: morphine CARPU-JECT 2 MG/1 ML DISP.SYRIN IVPUSH ONE (17:59)
[2022-03-21] MEDS ORDERED: VANCOMYCIN 500 MG VIAL (RESTRICTED TO ID ONLY) ONE (18:07)
[2022-03-21] MEDS ORDERED: VANCOMYCIN 1 GRAM (PRE-DOCKED) 1,000 MG/250 ML BAG IVPB ONE (18:07)
[2022-03-21] MEDS ORDERED: ONDANSETRON 4 MG/2 ML VIAL ONE (19:38)
[2022-03-21] MEDS ORDERED: ONDANSETRON 4 MG/2 ML VIAL IVPUSH ONE (19:38)
[2022-03-21] MEDS ORDERED: PATIENT'S OWN MEDICATION (NON-FORMULARY) (Insulin Pump/Infus. Set/Meter [Accu-Chek Combo S MC SCH (23:00)
[2022-03-22] MEDS ORDERED: traMADol HCL 50 MG TABLET ONE ×2 (01:07→11:42)
[2022-03-22] MEDS ORDERED: PIPERACILLIN/TAZOB 2.25 GM 2.25 GM/50 ML BAG IVPB ONE ×2 (01:08→09:01)
[2022-03-22] MEDS: PIPERACILLIN/TAZOB 2.25 GM 2.25 GM in DEXTROSE 5%-WATER - 50 ML IVPB SCH ×3 (01:16→18:38)
[2022-03-22 05:45] LABS: EOS % 6.3 % (0-4.5); LYMPH % 15.1 % (8-40); MCHC 34.4 g/dl (32.0-35.9); MEAN CELL VOLUME 90.1 fl (80-96); MONO % 10.4 % (3.8-10.2); NEUT % 67.2 % (42.8-82.8); PLATELET COUNT 218 10^3/uL (134-434); RBC 3.55 M/mm3 (4.00-5.60); WHITE BLOOD COUNT 8.5 K/mm3 (4.0-10.0)
[2022-03-22 06:02] LABS: CHLORIDE 102 mmol/L (98-107); SODIUM 135 mmol/L (136-145)
[2022-03-22 06:04] LABS: ALBUMIN 3.2 g/dl (3.4-5.0); ANION GAP 10 MMOL/L (8-16); BLOOD UREA NITROGEN 47.3 mg/dL (7-18); CALCIUM 8.3 mg/dL (8.5-10.1); CO2 23 mmol/L (21-32); GLUCOSE,RANDOM 291 mg/dL (74-106)
[2022-03-22 06:07] LABS: SGOT/AST 11 U/L (15-37); SGPT/ALT 13 U/L (13-61)
[2022-03-22 06:09] LABS: BILIRUBIN,TOTAL 0.4 mg/dL (0.2-1); TOT PROT 7.2 g/dl (6.4-8.2)
[2022-03-22 06:10] LABS: ALK PHOS 83 U/L (45-117)
[2022-03-22 06:20] LABS: CREATININE 10.1 mg/dL (0.55-1.3)
[2022-03-22] MEDS ORDERED: SODIUM CHLORIDE 250 ML IV PRN (07:41)
[2022-03-22] MEDS: INSULIN SLIDING SCALE (NOVOLOG) 1 VIAL SQ SCH ×4 (08:07→21:08)
[2022-03-22] MEDS ORDERED: FUROSEMIDE 40 MG TABLET (FP) ONE (09:01)
[2022-03-22] MEDS ORDERED: ASPIRIN COATED 81 MG TABLET.EC ONE (09:01)
[2022-03-22] MEDS ORDERED: TAMSULOSIN HCL 0.4 MG CAP ONE (09:01)
[2022-03-22] MEDS ORDERED: HEPARIN NA (PORCINE) 5,000 UNITS/ML 1ML VIAL ONE (09:02)
[2022-03-22] MEDS: TAMSULOSIN HCL 0.4 MG CAP PO SCH (09:17)
[2022-03-22] MEDS: HEPARIN NA (PORCINE) 5,000 UNITS/ML 1ML VIAL SQ SCH ×2 (09:17→21:07)
[2022-03-22] MEDS: ASPIRIN COATED 81 MG TABLET.EC PO SCH (09:17)
[2022-03-22] MEDS ORDERED: amLODIPine BESYLATE 5 MG TABLET (FP) ONE (11:35)
[2022-03-22] MEDS: amLODIPine BESYLATE 5 MG TABLET (FP) PO SCH (11:45)
[2022-03-22] MEDS: LOSARTAN POTASSIUM 25 MG TABLET PO SCH (11:45)
[2022-03-22] MEDS ORDERED: HYDROmorphone HCl 2 MG/ML VIAL IVPB PRN (15:26)
[2022-03-22] MEDS: FUROSEMIDE 40 MG TABLET (FP) PO SCH (16:42)
[2022-03-22] MEDS: ISOSORBIDE MONONITRATE 30 MG TAB.SR.24H (FP) PO SCH (16:42)
[2022-03-22] MEDS: traMADol HCL 50 MG TABLET PO PRN (16:42)
[2022-03-22] MEDS ORDERED: PIPERACILLIN/TAZOBACTAM 2.25 GM VIAL IVPB ONE (18:05)
[2022-03-22] MEDS ORDERED: DEXTROSE 5%-WATER - 50 ML IVPB ONE (18:05)
[2022-03-22] MEDS: COLLAGENASE CLOSTRIDIUM HIST. 30 GRAMS TUBE TP SCH (18:37)
[2022-03-22] MEDS ORDERED: ATORVASTATIN CA 40 MG TABLET (FP) ONE (21:00)
[2022-03-22] MEDS: ATORVASTATIN CA 80 MG TABLET (FP) PO SCH (21:07)
[2022-03-22] MEDS: GABAPENTIN 100 MG CAPSULE PO SCH (21:07)
[2022-03-23] MEDS ORDERED: PIPERACILLIN/TAZOBACTAM 2.25 GM VIAL IVPB ONE ×4 (01:04→17:03)
[2022-03-23] MEDS ORDERED: DEXTROSE 5%-WATER - 50 ML IVPB ONE ×3 (01:05→17:03)
[2022-03-23] MEDS: PIPERACILLIN/TAZOB 2.25 GM 2.25 GM in DEXTROSE 5%-WATER - 50 ML IVPB SCH ×3 (02:07→17:05)
[2022-03-23] MEDS: INSULIN SLIDING SCALE (NOVOLOG) 1 VIAL SQ SCH ×4 (06:28→21:28)
[2022-03-23 07:41] LABS: INR 1.09 (0.83-1.09); PROTHROMBIN TIME (PATIENT) 12.5 SEC (9.7-13.0)
[2022-03-23] MEDS: FUROSEMIDE 40 MG TABLET (FP) PO SCH (09:11)
[2022-03-23] MEDS: ISOSORBIDE MONONITRATE 30 MG TAB.SR.24H (FP) PO SCH (09:11)
[2022-03-23] MEDS: TAMSULOSIN HCL 0.4 MG CAP PO SCH (09:11)
[2022-03-23] MEDS: LOSARTAN POTASSIUM 25 MG TABLET PO SCH (09:11)
[2022-03-23] MEDS: amLODIPine BESYLATE 5 MG TABLET (FP) PO SCH (09:11)
[2022-03-23] MEDS: ASPIRIN COATED 81 MG TABLET.EC PO SCH (09:11)
[2022-03-23] MEDS: HEPARIN NA (PORCINE) 5,000 UNITS/ML 1ML VIAL SQ SCH ×2 (09:13→21:30)
[2022-03-23] MEDS: COLLAGENASE CLOSTRIDIUM HIST. 30 GRAMS TUBE TP SCH (12:18)
[2022-03-23] MEDS ORDERED: hydrALAZINE HCL 25 MG TABLET (FP) PO ONE (18:30)
[2022-03-23] MEDS: traMADol HCL 50 MG TABLET PO PRN (21:30)
[2022-03-23] MEDS: GABAPENTIN 100 MG CAPSULE PO SCH (21:30)
[2022-03-23] MEDS: ATORVASTATIN CA 80 MG TABLET (FP) PO SCH (21:31)
[2022-03-24] MEDS ORDERED: DEXTROSE 5%-WATER - 50 ML IVPB ONE ×3 (00:43→16:57)
[2022-03-24] MEDS ORDERED: PIPERACILLIN/TAZOBACTAM 2.25 GM VIAL IVPB ONE ×3 (00:43→16:56)
[2022-03-24] MEDS: PIPERACILLIN/TAZOB 2.25 GM 2.25 GM in DEXTROSE 5%-WATER - 50 ML IVPB SCH ×3 (01:37→17:00)
[2022-03-24] MEDS: ACETAMINOPHEN 325 MG TABLET (FP) PO PRN (06:23)
[2022-03-24] MEDS: INSULIN SLIDING SCALE (NOVOLOG) 1 VIAL SQ SCH ×4 (06:24→21:54)
[2022-03-24 07:45] LABS: BASO % 1.6 % (0-2.0); EOS % 5.8 % (0-4.5); HEMATOCRIT 32.7 % (35.4-49); HEMOGLOBIN 11.3 GM/dL (11.7-16.9); LYMPH % 16.1 % (8-40); MCH 30.7 pg (25.7-33.7); MCHC 34.5 g/dl (32.0-35.9); MEAN CELL VOLUME 89.1 fl (80-96); MEAN PLT VOLUME 8.1 fl (7.5-11.1); MONO % 7.9 % (3.8-10.2); NEUT % 68.6 % (42.8-82.8); PLATELET COUNT 270 10^3/uL (134-434); RBC 3.67 M/mm3 (4.00-5.60); RDW 12.9 % (11.9-15.9); WHITE BLOOD COUNT 8.2 K/mm3 (4.0-10.0)
[2022-03-24 08:00] LABS: CHLORIDE 95 mmol/L (98-107); SODIUM 130 mmol/L (136-145)
[2022-03-24 08:04] LABS: ALBUMIN 3.4 g/dl (3.4-5.0); ANION GAP 10 MMOL/L (8-16); CALCIUM 8.7 mg/dL (8.5-10.1); CO2 24 mmol/L (21-32); GLUCOSE,RANDOM 204 mg/dL (74-106); MAGNESIUM 2.1 mg/dL (1.8-2.4)
[2022-03-24 08:07] LABS: PHOSPHOROUS 7.6 mg/dL (2.5-4.9); SGOT/AST 12 U/L (15-37); SGPT/ALT 14 U/L (13-61)
[2022-03-24 08:09] LABS: BILIRUBIN,TOTAL 0.5 mg/dL (0.2-1); TOT PROT 7.7 g/dl (6.4-8.2)
[2022-03-24 08:10] LABS: ALK PHOS 78 U/L (45-117)
[2022-03-24 08:16] LABS: CREATININE 10.3 mg/dL (0.55-1.3)
[2022-03-24] MEDS: TAMSULOSIN HCL 0.4 MG CAP PO SCH ×2 (09:31→09:35)
[2022-03-24] MEDS: amLODIPine BESYLATE 5 MG TABLET (FP) PO SCH (09:35)
[2022-03-24] MEDS: HEPARIN NA (PORCINE) 5,000 UNITS/ML 1ML VIAL SQ SCH ×2 (09:35→21:53)
[2022-03-24] MEDS: FUROSEMIDE 40 MG TABLET (FP) PO SCH (09:35)
[2022-03-24] MEDS: LOSARTAN POTASSIUM 25 MG TABLET PO SCH (09:35)
[2022-03-24] MEDS: ASPIRIN COATED 81 MG TABLET.EC PO SCH (09:35)
[2022-03-24] MEDS: ISOSORBIDE MONONITRATE 30 MG TAB.SR.24H (FP) PO SCH (09:35)
[2022-03-24] MEDS ORDERED: SODIUM CHLORIDE 250 ML IV PRN (09:52)
[2022-03-24] MEDS: COLLAGENASE CLOSTRIDIUM HIST. 30 GRAMS TUBE TP SCH (10:55)
[2022-03-24] MEDS ORDERED: VANCOMYCIN/WATER FOR INJ (PEG) 1,000 MG/200 ML BAG IVPB ONE (13:15)
[2022-03-24] MEDS: metoPROLOL SUCCINATE 25 MG TAB.SR.24H (FP) PO SCH (15:34)
[2022-03-24] MEDS: GABAPENTIN 100 MG CAPSULE PO SCH (21:53)
[2022-03-24] MEDS: ATORVASTATIN CA 80 MG TABLET (FP) PO SCH (21:53)
[2022-03-24] MEDS: hydrALAZINE HCL 25 MG TABLET (FP) PO SCH (21:54)
[2022-03-25] MEDS ORDERED: PIPERACILLIN/TAZOBACTAM 2.25 GM VIAL IVPB ONE ×2 (00:42→09:04)
[2022-03-25] MEDS ORDERED: DEXTROSE 5%-WATER - 50 ML IVPB ONE ×2 (00:42→09:05)
[2022-03-25] MEDS: PIPERACILLIN/TAZOB 2.25 GM 2.25 GM in DEXTROSE 5%-WATER - 50 ML IVPB SCH ×2 (01:25→09:11)
[2022-03-25] MEDS: INSULIN SLIDING SCALE (NOVOLOG) 1 VIAL SQ SCH ×5 (06:41→21:26)
[2022-03-25] MEDS ORDERED: INSULIN SLIDING SCALE (NOVOLOG) 1 VIAL SQ ONE (07:08)
[2022-03-25] MEDS: TAMSULOSIN HCL 0.4 MG CAP PO SCH (09:10)
[2022-03-25] MEDS: ASPIRIN COATED 81 MG TABLET.EC PO SCH (09:10)
[2022-03-25] MEDS: hydrALAZINE HCL 25 MG TABLET (FP) PO SCH (09:10)
[2022-03-25] MEDS: LOSARTAN POTASSIUM 25 MG TABLET PO SCH (09:10)
[2022-03-25] MEDS: ISOSORBIDE MONONITRATE 30 MG TAB.SR.24H (FP) PO SCH (09:11)
[2022-03-25] MEDS: amLODIPine BESYLATE 5 MG TABLET (FP) PO SCH (09:11)
[2022-03-25] MEDS: HEPARIN NA (PORCINE) 5,000 UNITS/ML 1ML VIAL SQ SCH ×2 (09:11→21:30)
[2022-03-25] MEDS: metoPROLOL SUCCINATE 25 MG TAB.SR.24H (FP) PO SCH (09:11)
[2022-03-25] MEDS: FUROSEMIDE 40 MG TABLET (FP) PO SCH (09:11)
[2022-03-25] MEDS: COLLAGENASE CLOSTRIDIUM HIST. 30 GRAMS TUBE TP SCH (09:12)
[2022-03-25 09:20] LABS: HEMATOCRIT 32.4 % (35.4-49); MCH 30.7 pg (25.7-33.7); MCHC 34.1 g/dl (32.0-35.9); MEAN CELL VOLUME 90.1 fl (80-96); PLATELET COUNT 258 10^3/uL (134-434); RDW 12.7 % (11.9-15.9); WHITE BLOOD COUNT 7.5 K/mm3 (4.0-10.0)
[2022-03-25 09:51] LABS: CHLORIDE 96 mmol/L (98-107); SODIUM 134 mmol/L (136-145)
[2022-03-25 10:01] LABS: CALCIUM 8.6 mg/dL (8.5-10.1)
[2022-03-25 10:02] LABS: ANION GAP 11 MMOL/L (8-16); BLOOD UREA NITROGEN 46.9 mg/dL (7-18); CO2 26 mmol/L (21-32); GLUCOSE,RANDOM 242 mg/dL (74-106); MAGNESIUM 2.1 mg/dL (1.8-2.4)
[2022-03-25] MEDS ORDERED: amLODIPine BESYLATE 5 MG TABLET (FP) PO ONE (18:25)
[2022-03-25] MEDS ORDERED: EPOETIN ALFA-EPBX 4,000 UNIT/ML VIAL SQ ONE (18:26)
[2022-03-25] MEDS ORDERED: SODIUM CHLORIDE 250 ML IV PRN (18:26)
[2022-03-25] MEDS: ACETAMINOPHEN 325 MG TABLET (FP) PO PRN (20:37)
[2022-03-25] MEDS: GABAPENTIN 100 MG CAPSULE PO SCH (21:17)
[2022-03-25] MEDS: ATORVASTATIN CA 80 MG TABLET (FP) PO SCH (21:17)
[2022-03-25] MEDS: hydrALAZINE HCL 50 MG TABLET (FP) PO SCH (21:17)
[2022-03-25] MEDS: INSULIN (LEVEMIR) 100 UNITS/ML UNITS SQ SCH (21:27)
[2022-03-26] MEDS: INSULIN (LEVEMIR) 100 UNITS/ML UNITS SQ SCH ×2 (06:06→21:17)
[2022-03-26] MEDS: hydrALAZINE HCL 50 MG TABLET (FP) PO SCH ×3 (06:07→21:12)
[2022-03-26] MEDS: INSULIN SLIDING SCALE (NOVOLOG) 1 VIAL SQ SCH ×4 (06:07→21:23)
[2022-03-26] MEDS: FUROSEMIDE 40 MG TABLET (FP) PO SCH (09:59)
[2022-03-26] MEDS: ASPIRIN COATED 81 MG TABLET.EC PO SCH (09:59)
[2022-03-26] MEDS: ISOSORBIDE MONONITRATE 30 MG TAB.SR.24H (FP) PO SCH (09:59)
[2022-03-26] MEDS: NIFEdipine E.R 60 MG TABLET PO SCH (10:00)
[2022-03-26] MEDS: LOSARTAN POTASSIUM 25 MG TABLET PO SCH (10:00)
[2022-03-26] MEDS: TAMSULOSIN HCL 0.4 MG CAP PO SCH (10:02)
[2022-03-26] MEDS: COLLAGENASE CLOSTRIDIUM HIST. 30 GRAMS TUBE TP SCH (10:02)
[2022-03-26] MEDS: HEPARIN NA (PORCINE) 5,000 UNITS/ML 1ML VIAL SQ SCH ×2 (10:02→21:12)
[2022-03-26] MEDS: ACETAMINOPHEN 325 MG TABLET (FP) PO PRN (14:13)
[2022-03-26] MEDS ORDERED: EPOETIN ALFA-EPBX 4,000 UNIT/ML VIAL SQ ONE (17:00)
[2022-03-26] MEDS: GABAPENTIN 100 MG CAPSULE PO SCH (21:12)
[2022-03-26] MEDS: ATORVASTATIN CA 80 MG TABLET (FP) PO SCH (21:12)
[2022-03-27] MEDS: traMADol HCL 50 MG TABLET PO PRN (00:42)
[2022-03-27] MEDS: hydrALAZINE HCL 50 MG TABLET (FP) PO SCH ×3 (05:41→21:18)
[2022-03-27] MEDS: INSULIN SLIDING SCALE (NOVOLOG) 1 VIAL SQ SCH ×4 (06:09→21:19)
[2022-03-27] MEDS: INSULIN (LEVEMIR) 100 UNITS/ML UNITS SQ SCH ×3 (06:09→21:19)
[2022-03-27] MEDS ORDERED: SODIUM CHLORIDE 250 ML IV PRN (08:58)
[2022-03-27] MEDS ORDERED: EPOETIN ALFA-EPBX 4,000 UNIT/ML VIAL SQ ONE (08:58)
[2022-03-27] MEDS: HEPARIN NA (PORCINE) 5,000 UNITS/ML 1ML VIAL SQ SCH ×2 (10:26→21:19)
[2022-03-27] MEDS: ASPIRIN COATED 81 MG TABLET.EC PO SCH (10:26)
[2022-03-27] MEDS: FUROSEMIDE 40 MG TABLET (FP) PO SCH (10:26)
[2022-03-27] MEDS: NIFEdipine E.R 60 MG TABLET PO SCH (10:27)
[2022-03-27] MEDS: LOSARTAN POTASSIUM 25 MG TABLET PO SCH (10:28)
[2022-03-27] MEDS: ISOSORBIDE MONONITRATE 30 MG TAB.SR.24H (FP) PO SCH (10:28)
[2022-03-27] MEDS: TAMSULOSIN HCL 0.4 MG CAP PO SCH (10:30)
[2022-03-27] MEDS: COLLAGENASE CLOSTRIDIUM HIST. 30 GRAMS TUBE TP SCH (16:50)
[2022-03-27] MEDS ORDERED: traMADol HCL 50 MG TABLET PO PRN (21:05)
[2022-03-27] MEDS: GABAPENTIN 100 MG CAPSULE PO SCH (21:18)
[2022-03-27] MEDS: ATORVASTATIN CA 80 MG TABLET (FP) PO SCH (21:18)
[2022-03-28] MEDS: hydrALAZINE HCL 50 MG TABLET (FP) PO SCH ×3 (06:28→21:36)
[2022-03-28] MEDS: INSULIN SLIDING SCALE (NOVOLOG) 1 VIAL SQ SCH ×4 (06:28→21:38)
[2022-03-28] MEDS: INSULIN (LEVEMIR) 100 UNITS/ML UNITS SQ SCH ×2 (06:28→21:38)
[2022-03-28] MEDS ORDERED: LIDOCAINE HCL 1%, 10 MG/ML (20ML VIAL) ONE (07:13)
[2022-03-28] MEDS ORDERED: BUPIVACAINE HCL/PF 0.5% (5MG/ML) 10 ML VIAL ONE (07:13)
[2022-03-28] MEDS ORDERED: MIDAZOLAM HCL 2 MG/2 ML SINGLE DOSE VIAL ONE ×2 (07:17→07:42)
[2022-03-28] MEDS ORDERED: PROPOFOL 20 ML ONE ×2 (07:41)
[2022-03-28] MEDS ORDERED: ceFAZolin SODIUM 1 GM VIAL ONE (07:42)
[2022-03-28] MEDS ORDERED: LIDOCAINE HCL 1%, 10 MG/ML (50 mL VIAL) INF ONE (07:55)
[2022-03-28] MEDS ORDERED: BUPIVACAINE HCL/PF 0.5% (5 MG/ML) 30 ML VIAL IJ ONE (07:55)
[2022-03-28] MEDS ORDERED: ACETAMINOPHEN 325 MG TABLET (FP) PO PRN (09:00)
[2022-03-28] MEDS: COLLAGENASE CLOSTRIDIUM HIST. 30 GRAMS TUBE TP SCH (10:00)
[2022-03-28] MEDS: TAMSULOSIN HCL 0.4 MG CAP PO SCH ×2 (10:34→10:35)
[2022-03-28] MEDS ORDERED: SODIUM CHLORIDE 250 ML IV PRN (11:00)
[2022-03-28] MEDS ORDERED: EPOETIN ALFA-EPBX 4,000 UNIT/ML VIAL IVPUSH ONE (11:00)
[2022-03-28] MEDS ORDERED: VANCOMYCIN/WATER FOR INJ (PEG) 1,000 MG/200 ML BAG IVPB ONE (12:15)
[2022-03-28] MEDS: LOSARTAN POTASSIUM 25 MG TABLET PO SCH (14:40)
[2022-03-28] MEDS: NIFEdipine E.R 60 MG TABLET PO SCH (14:41)
[2022-03-28] MEDS: ISOSORBIDE MONONITRATE 30 MG TAB.SR.24H (FP) PO SCH (14:41)
[2022-03-28] MEDS: ASPIRIN COATED 81 MG TABLET.EC PO SCH (14:42)
[2022-03-28] MEDS: FUROSEMIDE 40 MG TABLET (FP) PO SCH (14:43)
[2022-03-28] MEDS: HEPARIN NA (PORCINE) 5,000 UNITS/ML 1ML VIAL SQ SCH ×2 (14:43→21:38)
[2022-03-28] MEDS: traMADol HCL 50 MG TABLET PO PRN (15:04)
[2022-03-28] MEDS ORDERED: PIPERACILLIN/TAZOBACTAM 2.25 GM VIAL IVPB ONE (17:17)
[2022-03-28] MEDS ORDERED: DEXTROSE 5%-WATER - 50 ML IVPB ONE (17:18)
[2022-03-28] MEDS: PIPERACILLIN/TAZOB 2.25 GM 2.25 GM in DEXTROSE 5%-WATER - 50 ML IVPB SCH (17:23)
[2022-03-28] MEDS: ATORVASTATIN CA 80 MG TABLET (FP) PO SCH (21:36)
[2022-03-28] MEDS: GABAPENTIN 100 MG CAPSULE PO SCH (21:37)
[2022-03-29] MEDS ORDERED: PIPERACILLIN/TAZOBACTAM 2.25 GM VIAL IVPB ONE ×3 (01:10→18:08)
[2022-03-29] MEDS ORDERED: DEXTROSE 5%-WATER - 50 ML IVPB ONE ×3 (01:11→18:08)
[2022-03-29] MEDS: PIPERACILLIN/TAZOB 2.25 GM 2.25 GM in DEXTROSE 5%-WATER - 50 ML IVPB SCH ×3 (01:37→18:14)
[2022-03-29] MEDS: hydrALAZINE HCL 50 MG TABLET (FP) PO SCH ×3 (07:01→21:10)
[2022-03-29] MEDS: INSULIN (LEVEMIR) 100 UNITS/ML UNITS SQ SCH ×2 (07:02→21:10)
[2022-03-29] MEDS: INSULIN SLIDING SCALE (NOVOLOG) 1 VIAL SQ SCH ×4 (07:02→21:10)
[2022-03-29] MEDS: NIFEdipine E.R 60 MG TABLET PO SCH (09:33)
[2022-03-29] MEDS: HEPARIN NA (PORCINE) 5,000 UNITS/ML 1ML VIAL SQ SCH ×2 (09:33→21:10)
[2022-03-29] MEDS: ASPIRIN COATED 81 MG TABLET.EC PO SCH (09:33)
[2022-03-29] MEDS: FUROSEMIDE 40 MG TABLET (FP) PO SCH (09:33)
[2022-03-29] MEDS: TAMSULOSIN HCL 0.4 MG CAP PO SCH (09:34)
[2022-03-29] MEDS: LOSARTAN POTASSIUM 25 MG TABLET PO SCH (09:34)
[2022-03-29] MEDS: ISOSORBIDE MONONITRATE 30 MG TAB.SR.24H (FP) PO SCH (09:34)
[2022-03-29] MEDS: COLLAGENASE CLOSTRIDIUM HIST. 30 GRAMS TUBE TP SCH (10:40)
[2022-03-29] MEDS: ATORVASTATIN CA 80 MG TABLET (FP) PO SCH (21:10)
[2022-03-29] MEDS: GABAPENTIN 100 MG CAPSULE PO SCH (21:10)
[2022-03-30] MEDS ORDERED: PIPERACILLIN/TAZOBACTAM 2.25 GM VIAL IVPB ONE ×3 (01:07→18:03)
[2022-03-30] MEDS ORDERED: DEXTROSE 5%-WATER - 50 ML IVPB ONE ×3 (01:07→18:03)
[2022-03-30] MEDS: PIPERACILLIN/TAZOB 2.25 GM 2.25 GM in DEXTROSE 5%-WATER - 50 ML IVPB SCH ×3 (01:13→18:16)
[2022-03-30] MEDS: INSULIN SLIDING SCALE (NOVOLOG) 1 VIAL SQ SCH ×4 (06:28→21:51)
[2022-03-30] MEDS: hydrALAZINE HCL 50 MG TABLET (FP) PO SCH ×3 (06:28→21:51)
[2022-03-30] MEDS: INSULIN (LEVEMIR) 100 UNITS/ML UNITS SQ SCH ×2 (06:29→21:51)
[2022-03-30] MEDS ORDERED: VANCOMYCIN/WATER FOR INJ (PEG) 1,000 MG/200 ML BAG IVPB ONE (08:00)
[2022-03-30] MEDS: TAMSULOSIN HCL 0.4 MG CAP PO SCH (08:15)
[2022-03-30] MEDS: HEPARIN NA (PORCINE) 5,000 UNITS/ML 1ML VIAL SQ SCH ×2 (09:26→21:51)
[2022-03-30] MEDS: ASPIRIN COATED 81 MG TABLET.EC PO SCH (09:27)
[2022-03-30] MEDS: ISOSORBIDE MONONITRATE 30 MG TAB.SR.24H (FP) PO SCH (09:27)
[2022-03-30] MEDS: FUROSEMIDE 40 MG TABLET (FP) PO SCH (09:27)
[2022-03-30] MEDS: NIFEdipine E.R 60 MG TABLET PO SCH (09:27)
[2022-03-30] MEDS: LOSARTAN POTASSIUM 25 MG TABLET PO SCH (09:27)
[2022-03-30] MEDS: COLLAGENASE CLOSTRIDIUM HIST. 30 GRAMS TUBE TP SCH (09:31)
[2022-03-30] MEDS ORDERED: SODIUM CHLORIDE 250 ML IV PRN (11:49)
[2022-03-30] MEDS: GABAPENTIN 100 MG CAPSULE PO SCH (21:50)
[2022-03-30] MEDS: ATORVASTATIN CA 80 MG TABLET (FP) PO SCH (21:51)
[2022-03-31] MEDS ORDERED: PIPERACILLIN/TAZOBACTAM 2.25 GM VIAL IVPB ONE ×2 (00:43→13:06)
[2022-03-31] MEDS ORDERED: DEXTROSE 5%-WATER - 50 ML IVPB ONE ×2 (00:43→13:06)
[2022-03-31] MEDS: traMADol HCL 50 MG TABLET PO PRN (00:54)
[2022-03-31] MEDS: PIPERACILLIN/TAZOB 2.25 GM 2.25 GM in DEXTROSE 5%-WATER - 50 ML IVPB SCH ×2 (01:01→13:14)
[2022-03-31] MEDS: hydrALAZINE HCL 50 MG TABLET (FP) PO SCH ×2 (05:39→13:13)
[2022-03-31] MEDS: INSULIN SLIDING SCALE (NOVOLOG) 1 VIAL SQ SCH ×3 (06:10→17:26)
[2022-03-31] MEDS ORDERED: EPOETIN ALFA-EPBX 2,000 UNIT/ML VIAL IVPUSH ONE (08:00)
[2022-03-31 09:16] LABS: HEMATOCRIT 32.6 % (35.4-49); MCH 31.2 pg (25.7-33.7); MCHC 33.8 g/dl (32.0-35.9); MEAN CELL VOLUME 92.3 fl (80-96); MEAN PLT VOLUME 7.6 fl (7.5-11.1); PLATELET COUNT 309 10^3/uL (134-434); RBC 3.53 M/mm3 (4.00-5.60); RDW 13.2 % (11.9-15.9); WHITE BLOOD COUNT 9.1 K/mm3 (4.0-10.0)
[2022-03-31 12:19] LABS: CHLORIDE 98 mmol/L (98-107); SODIUM 134 mmol/L (136-145)
[2022-03-31 12:25] LABS: CALCIUM 8.8 mg/dL (8.5-10.1)
[2022-03-31 12:26] LABS: ANION GAP 16 MMOL/L (8-16); BLOOD UREA NITROGEN 60.7 mg/dL (7-18); CO2 20 mmol/L (21-32); GLUCOSE,RANDOM 245 mg/dL (74-106)
[2022-03-31 12:32] LABS: CREATININE 12.6 mg/dL (0.55-1.3)
[2022-03-31] MEDS: INSULIN (LEVEMIR) 100 UNITS/ML UNITS SQ SCH (13:10)
[2022-03-31] MEDS: FUROSEMIDE 40 MG TABLET (FP) PO SCH (13:12)
[2022-03-31] MEDS: LOSARTAN POTASSIUM 25 MG TABLET PO SCH (13:13)
[2022-03-31] MEDS: NIFEdipine E.R 60 MG TABLET PO SCH (13:13)
[2022-03-31] MEDS: ISOSORBIDE MONONITRATE 30 MG TAB.SR.24H (FP) PO SCH (13:13)
[2022-03-31] MEDS: ASPIRIN COATED 81 MG TABLET.EC PO SCH (13:13)
[2022-03-31] MEDS: HEPARIN NA (PORCINE) 5,000 UNITS/ML 1ML VIAL SQ SCH (13:13)
[2022-03-31] MEDS: TAMSULOSIN HCL 0.4 MG CAP PO SCH (13:27)
[2022-03-31 14:18] VITALS: TEMP 97.5
[2022-03-31 15:50] VITALS: BP 151/94; PULSE 82
== END 2022-03-31 19:22 | disposition home or self-care (01) | DRG 987 ==
LOC: JER 14:41 → JERBED 19:20 → J4S 03-22 16:05
PROVIDERS: ADMIT Internal Medicine; ATTEND Family Medicine
PROC: 0Q9 Lower Bones, Drainage (ICD-10-PCS; principal; 2022-03-28 07:30)
PROC: 5A1D70Z Performance of Urinary Filtration, Intermittent, Less than 6 Hours Per Day (ICD-10-PCS; 2022-03-31)
DX: E11.52 Type 2 diabetes mellitus with diabetic peripheral angiopathy with gangrene (principal); N18.6 End stage renal disease; I12.0 Hypertensive chronic kidney disease with stage 5 chronic kidney disease or end stage renal disease; L97.909 Non-pressure chronic ulcer of unspecified part of unspecified lower leg with unspecified severity; L02.419 Cutaneous abscess of limb, unspecified; I16.1 Hypertensive emergency; N17.9 Acute kidney failure, unspecified; M86.9 Osteomyelitis, unspecified; R78.81 Bacteremia; L03.90 Cellulitis, unspecified; I13.2 Hypertensive heart and chronic kidney disease with heart failure and with stage 5 chronic kidney disease, or end stage renal disease; E11.65 Type 2 diabetes mellitus with hyperglycemia; E11.22 Type 2 diabetes mellitus with diabetic chronic kidney disease; E11.69 Type 2 diabetes mellitus with other specified complication; E78.5 Hyperlipidemia, unspecified; K21.9 Gastro-esophageal reflux disease without esophagitis; I25.10 Atherosclerotic heart disease of native coronary artery without angina pectoris; N40.0 Benign prostatic hyperplasia without lower urinary tract symptoms; E11.40 Type 2 diabetes mellitus with diabetic neuropathy, unspecified; E66.9 Obesity, unspecified; Z68.33 Body mass index [BMI] 33.0-33.9, adult
CPT/HCPCS: 36415; 73630-TC-LT; 73630-TC-RT-FY; 73718-TC-LT; 80048; 80053; 82962; 83036; 83735; 84100; 84484; 85025; 85027; 85610; 85651; 86140; 86803; 87040; 87070; 87075; 87205; 87340; 93005; 93010; 99285-25; C9803-CS; G0480; J1644; Q5106; U0003; U0005

== ENCOUNTER 2022-05-04 23:07 | Inpatient (IN) | payer OTHER ==
[2022-05-05] MEDS ORDERED: PIPERACILLIN/TAZOB 4.5 GM 4.5 GM in DEXTROSE 5%-WATER 100 ML IVPB ONE (00:20)
[2022-05-05] MEDS ORDERED: VANCOMYCIN 1 GM in D5W (PRE-DOCKED) 1,000 MG/250 ML IVPB ONE (00:20)
[2022-05-05] MEDS ORDERED: ACETAMINOPHEN 1000 MG/100 ML BAG IVPB ONE (00:21)
[2022-05-05] MEDS ORDERED: morphine CARPU-JECT 4 MG/1 ML DISP.SYRIN IVPUSH ONE (00:27)
[2022-05-05 00:46] LABS: BASO % 0.9 % (0-2.0); HEMATOCRIT 29.2 % (35.4-49); HEMOGLOBIN 10.2 GM/dL (11.7-16.9); LYMPH % 3.3 % (8-40); MCH 31.3 pg (25.7-33.7); MCHC 34.9 g/dl (32.0-35.9); MEAN CELL VOLUME 89.7 fl (80-96); MEAN PLT VOLUME 7.6 fl (7.5-11.1); MONO % 11.6 % (3.8-10.2); NEUT % 83.2 % (42.8-82.8); PLATELET COUNT 285 10^3/uL (134-434); RBC 3.26 M/mm3 (4.00-5.60); RDW 12.8 % (11.9-15.9); VENOUS BASE EXCESS -6.5 mmol/L (-2-2); VENOUS O2 SATURATION 47.1 % (70-80); VENOUS PH 7.225 (7.310-7.410); WHITE BLOOD COUNT 13.1 K/mm3 (4.0-10.0)
[2022-05-05 00:52] LABS: INR 1.26 (0.83-1.09); PROTHROMBIN TIME (PATIENT) 14.5 SEC (9.7-13.0)
[2022-05-05 00:55] LABS: ACTIVATED PTT 36.1 SECONDS (25.2-36.5)
[2022-05-05 01:03] LABS: CHLORIDE 96 mmol/L (98-107); SODIUM 133 mmol/L (136-145)
[2022-05-05 01:05] LABS: CALCIUM 8.6 mg/dL (8.5-10.1)
[2022-05-05] MEDS ORDERED: VANCOMYCIN 1 GRAM (PRE-DOCKED) 1,000 MG/250 ML BAG IVPB ONE (01:05)
[2022-05-05] MEDS ORDERED: ACETAMINOPHEN INJECTION 100 ML IVPB ONE (01:05)
[2022-05-05] MEDS ORDERED: PIPERACILLIN/TAZOB 4.5 GM 4.5 GM/100 ML BAG IVPB ONE (01:05)
[2022-05-05] MEDS ORDERED: morphine SULFATE 4 MG/ML VIAL ONE (01:05)
[2022-05-05 01:06] LABS: ALBUMIN 3.3 g/dl (3.4-5.0); ANION GAP 12 MMOL/L (8-16); CO2 25 mmol/L (21-32); GLUCOSE,RANDOM 229 mg/dL (74-106)
[2022-05-05 01:10] LABS: SGOT/AST 22 U/L (15-37); SGPT/ALT 24 U/L (13-61)
[2022-05-05 01:11] LABS: BILIRUBIN,TOTAL 0.4 mg/dL (0.2-1); TOT PROT 7.9 g/dl (6.4-8.2)
[2022-05-05 01:12] LABS: ALK PHOS 95 U/L (45-117)
[2022-05-05 01:18] LABS: CREATININE 11.3 mg/dL (0.55-1.3)
[2022-05-05 02:11] LABS: EPI CELLS 23 /uL (0-25.1); HYALINE CASTS 2 /uL (0-3.1); PH,URINE 6.5 (5.0-8.0); URINE APPEARANCE CLEAR; URINE BACTERIA 5 /uL (0-1359); URINE BILIRUBIN NEGATIVE (NEGATIVE); URINE COLOR YELLOW; URINE GLUCOSE (UA) 2+ (NEGATIVE); URINE KETONE NEGATIVE (NEGATIVE); URINE LEUK ESTERASE NEGATIVE (NEGATIVE); URINE NITRITE NEGATIVE (NEGATIVE); URINE PROTEIN 4+ (NEGATIVE); URINE RBC 79 /uL (0-23.9); URINE UROBILINOGEN 0.2 mg/dL (0.2-1.0); URINE WBC 22 /uL (0-25.8)
[2022-05-05] MEDS ORDERED: ASPIRIN 81 MG CHEWABLE TABLETS PO ONE (05:51)
[2022-05-05] MEDS ORDERED: ASPIRIN 81 MG CHEWABLE TABLETS ONE (06:11)
[2022-05-05] MEDS ORDERED: SODIUM CHLORIDE 250 ML IV PRN (08:28)
[2022-05-05] MEDS: TAMSULOSIN HCL 0.4 MG CAP PO SCH (09:00)
[2022-05-05] MEDS: GABAPENTIN 100 MG CAPSULE PO SCH ×3 (09:00→23:39)
[2022-05-05] MEDS ORDERED: TAMSULOSIN HCL 0.4 MG CAP ONE (09:39)
[2022-05-05] MEDS ORDERED: GABAPENTIN 100 MG CAPSULE ONE (09:40)
[2022-05-05] MEDS ORDERED: ISOSORBIDE MONONITRATE 30 MG TAB.SR.24H (FP) PO SCH (10:00)
[2022-05-05 10:45] LABS: BASO % 0.8 % (0-2.0); EOS % 2.3 % (0-4.5); HEMATOCRIT 28.9 % (35.4-49); HEMOGLOBIN 9.9 GM/dL (11.7-16.9); LYMPH % 7.1 % (8-40); MCH 30.9 pg (25.7-33.7); MCHC 34.2 g/dl (32.0-35.9); MEAN CELL VOLUME 90.2 fl (80-96); MEAN PLT VOLUME 7.4 fl (7.5-11.1); MONO % 9.5 % (3.8-10.2); NEUT % 80.3 % (42.8-82.8); PLATELET COUNT 289 10^3/uL (134-434); RBC 3.21 M/mm3 (4.00-5.60); RDW 12.8 % (11.9-15.9); WHITE BLOOD COUNT 14.7 K/mm3 (4.0-10.0)
[2022-05-05 11:03] LABS: CHLORIDE 96 mmol/L (98-107); SODIUM 132 mmol/L (136-145)
[2022-05-05 11:11] LABS: CALCIUM 8.9 mg/dL (8.5-10.1)
[2022-05-05 11:12] LABS: ANION GAP 14 MMOL/L (8-16); BLOOD UREA NITROGEN 67.4 mg/dL (7-18); CO2 22 mmol/L (21-32); GLUCOSE,RANDOM 160 mg/dL (74-106)
[2022-05-05 11:13] LABS: SGPT/ALT 22 U/L (13-61)
[2022-05-05 11:14] LABS: BILIRUBIN,TOTAL 0.4 mg/dL (0.2-1); TOT PROT 7.3 g/dl (6.4-8.2)
[2022-05-05 11:15] LABS: ALK PHOS 89 U/L (45-117); SGOT/AST 18 U/L (15-37)
[2022-05-05] MEDS ORDERED: NITROGLYCERIN 2% OINTMENT - 1GM PACKET TD ONE (15:38)
[2022-05-05] MEDS: NITROGLYCERIN 2% OINTMENT - 1GM PACKET TD SCH ×2 (18:48→23:38)
[2022-05-05] MEDS: hydrALAZINE HCL 50 MG TABLET (FP) PO SCH ×2 (22:28→23:38)
[2022-05-05] MEDS: ATORVASTATIN CA 80 MG TABLET (FP) PO SCH (22:31)
[2022-05-05] MEDS: ACETAMINOPHEN 325 MG TABLET (FP) PO PRN (22:31)
[2022-05-05] MEDS: METOPROLOL TARTRATE 50 MG TABLET (FP) PO SCH ×2 (22:31→23:39)
[2022-05-05] MEDS: AMITRIPTYLINE HCL 10 MG TABLET PO SCH (23:38)
[2022-05-05] MEDS: LOSARTAN POTASSIUM 25 MG TABLET PO SCH (23:38)
[2022-05-05] MEDS: NIFEdipine E.R 60 MG TABLET PO SCH (23:39)
[2022-05-05] MEDS: FUROSEMIDE 40 MG TABLET (FP) PO SCH (23:39)
[2022-05-06 01:14] VITALS: BMI 34.6
[2022-05-06] MEDS: PIPERACILLIN/TAZOB 2.25 GM 2.25 GM in DEXTROSE 5%-WATER - 50 ML IVPB SCH ×3 (03:30→17:38)
[2022-05-06] MEDS ORDERED: DEXTROSE 5%-WATER - 50 ML IVPB ONE ×4 (04:12→23:55)
[2022-05-06] MEDS ORDERED: PIPERACILLIN/TAZOBACTAM 2.25 GM VIAL IVPB ONE ×4 (04:12→23:54)
[2022-05-06] MEDS: FUROSEMIDE 40 MG TABLET (FP) PO SCH ×2 (06:39→13:09)
[2022-05-06] MEDS: hydrALAZINE HCL 50 MG TABLET (FP) PO SCH ×4 (06:39→21:47)
[2022-05-06] MEDS: GABAPENTIN 100 MG CAPSULE PO SCH ×3 (06:39→21:46)
[2022-05-06] MEDS: COLLAGENASE CLOSTRIDIUM HIST. 30 GRAMS TUBE TP SCH ×2 (06:40→10:43)
[2022-05-06] MEDS: NITROGLYCERIN 2% OINTMENT - 1GM PACKET TD SCH ×3 (06:40→17:38)
[2022-05-06 08:22] LABS: BASO % 1.1 % (0-2.0); EOS % 2.2 % (0-4.5); HEMOGLOBIN 9.5 GM/dL (11.7-16.9); LYMPH % 7.3 % (8-40); MCH 30.6 pg (25.7-33.7); MEAN PLT VOLUME 7.8 fl (7.5-11.1); MONO % 11.5 % (3.8-10.2); NEUT % 77.9 % (42.8-82.8); PLATELET COUNT 287 10^3/uL (134-434); RBC 3.11 M/mm3 (4.00-5.60); RDW 12.6 % (11.9-15.9); WHITE BLOOD COUNT 11.6 K/mm3 (4.0-10.0)
[2022-05-06] MEDS ORDERED: CLOPIDOGREL BISULFATE 300 MG TABLET PO ONE (09:38)
[2022-05-06] MEDS: ASPIRIN COATED 81 MG TABLET.EC PO SCH (09:40)
[2022-05-06] MEDS ORDERED: HEPARIN NA (PORCINE) 5,000 UNITS/ML 1ML VIAL IVPUSH ONE (09:40)
[2022-05-06] MEDS ORDERED: HEPARIN NA (PORCINE) 5,000 UNITS/ML 1ML VIAL IVPUSH PRN ×2 (09:40)
[2022-05-06] MEDS ORDERED: HEPARIN - 25,000 UNIT in SODIUM CHLORIDE 495 ML IV SCH (09:45)
[2022-05-06] MEDS ORDERED: morphine SULFATE 4 MG/ML VIAL IVPUSH ONE (09:45)
[2022-05-06] MEDS ORDERED: morphine SULFATE 4 MG/ML VIAL ONE (09:46)
[2022-05-06] MEDS ORDERED: METOPROLOL TARTRATE 5 MG/5 ML VIAL IVPUSH ONE (09:47)
[2022-05-06 10:18] LABS: HEMATOCRIT 33.7 % (35.4-49); HEMOGLOBIN 11.3 GM/dL (11.7-16.9); MCHC 33.5 g/dl (32.0-35.9); MEAN CELL VOLUME 89.3 fl (80-96); MEAN PLT VOLUME 7.2 fl (7.5-11.1); PLATELET COUNT 324 10^3/uL (134-434); RBC 3.77 M/mm3 (4.00-5.60); RDW 12.5 % (11.9-15.9); WHITE BLOOD COUNT 8.6 K/mm3 (4.0-10.0)
[2022-05-06] MEDS: TAMSULOSIN HCL 0.4 MG CAP PO SCH (10:43)
[2022-05-06] MEDS: LOSARTAN POTASSIUM 25 MG TABLET PO SCH (10:43)
[2022-05-06] MEDS: NIFEdipine E.R 60 MG TABLET PO SCH (10:43)
[2022-05-06] MEDS: METOPROLOL TARTRATE 50 MG TABLET (FP) PO SCH ×2 (10:43→21:47)
[2022-05-06 10:56] LABS: CHLORIDE 96 mmol/L (98-107); SODIUM 136 mmol/L (136-145)
[2022-05-06 10:58] LABS: ALBUMIN 3.2 g/dl (3.4-5.0); ANION GAP 18 MMOL/L (8-16); BLOOD UREA NITROGEN 58.8 mg/dL (7-18); CALCIUM 8.9 mg/dL (8.5-10.1); CO2 22 mmol/L (21-32); GLUCOSE,RANDOM 202 mg/dL (74-106)
[2022-05-06 11:01] LABS: SGOT/AST 18 U/L (15-37); SGPT/ALT 22 U/L (13-61)
[2022-05-06 11:03] LABS: BILIRUBIN,TOTAL 0.5 mg/dL (0.2-1); TOT PROT 8.2 g/dl (6.4-8.2)
[2022-05-06 11:05] LABS: ALK PHOS 102 U/L (45-117)
[2022-05-06 11:10] LABS: CREATININE 9.9 mg/dL (0.55-1.3)
[2022-05-06] MEDS: ATORVASTATIN CA 80 MG TABLET (FP) PO SCH (21:46)
[2022-05-06] MEDS: AMITRIPTYLINE HCL 10 MG TABLET PO SCH (21:47)
[2022-05-07] MEDS: NITROGLYCERIN 2% OINTMENT - 1GM PACKET TD SCH ×4 (00:05→18:22)
[2022-05-07] MEDS: PIPERACILLIN/TAZOB 2.25 GM 2.25 GM in DEXTROSE 5%-WATER - 50 ML IVPB SCH ×3 (02:07→18:22)
[2022-05-07] MEDS: hydrALAZINE HCL 50 MG TABLET (FP) PO SCH ×3 (06:12→21:11)
[2022-05-07] MEDS: FUROSEMIDE 40 MG TABLET (FP) PO SCH ×2 (06:12→13:32)
[2022-05-07] MEDS: GABAPENTIN 100 MG CAPSULE PO SCH ×3 (06:12→21:11)
[2022-05-07] MEDS ORDERED: DEXTROSE 5%-WATER - 50 ML IVPB ONE ×2 (09:52→18:15)
[2022-05-07] MEDS ORDERED: PIPERACILLIN/TAZOBACTAM 2.25 GM VIAL IVPB ONE ×2 (09:52→18:14)
[2022-05-07] MEDS: NIFEdipine E.R 60 MG TABLET PO SCH (09:58)
[2022-05-07] MEDS: ASPIRIN COATED 81 MG TABLET.EC PO SCH (09:58)
[2022-05-07] MEDS: TAMSULOSIN HCL 0.4 MG CAP PO SCH (09:58)
[2022-05-07] MEDS: COLLAGENASE CLOSTRIDIUM HIST. 30 GRAMS TUBE TP SCH (09:59)
[2022-05-07] MEDS: LOSARTAN POTASSIUM 25 MG TABLET PO SCH (13:32)
[2022-05-07] MEDS: METOPROLOL TARTRATE 50 MG TABLET (FP) PO SCH ×2 (13:32→21:11)
[2022-05-07] MEDS ORDERED: SODIUM CHLORIDE 250 ML IV PRN ×2 (14:53→15:37)
[2022-05-07] MEDS ORDERED: EPOETIN ALFA-EPBX 3,000 UNIT/ML VIAL SQ ONE (14:53)
[2022-05-07] MEDS: ACETAMINOPHEN 325 MG TABLET (FP) PO PRN (18:35)
[2022-05-07] MEDS: ATORVASTATIN CA 80 MG TABLET (FP) PO SCH (21:11)
[2022-05-07] MEDS: AMITRIPTYLINE HCL 10 MG TABLET PO SCH (21:11)
[2022-05-08] MEDS: NITROGLYCERIN 2% OINTMENT - 1GM PACKET TD SCH ×5 (00:10→23:11)
[2022-05-08] MEDS ORDERED: PIPERACILLIN/TAZOBACTAM 2.25 GM VIAL IVPB ONE ×2 (02:48→10:56)
[2022-05-08] MEDS ORDERED: DEXTROSE 5%-WATER - 50 ML IVPB ONE ×2 (02:48→10:56)
[2022-05-08] MEDS: PIPERACILLIN/TAZOB 2.25 GM 2.25 GM in DEXTROSE 5%-WATER - 50 ML IVPB SCH ×2 (02:50→12:11)
[2022-05-08] MEDS: GABAPENTIN 100 MG CAPSULE PO SCH ×3 (06:18→21:16)
[2022-05-08] MEDS: FUROSEMIDE 40 MG TABLET (FP) PO SCH ×2 (06:18→13:47)
[2022-05-08] MEDS: hydrALAZINE HCL 50 MG TABLET (FP) PO SCH ×3 (06:18→21:15)
[2022-05-08 06:53] LABS: EOS % 2.2 % (0-4.5); HEMATOCRIT 24.5 % (35.4-49); HEMOGLOBIN 8.5 GM/dL (11.7-16.9); LYMPH % 9.1 % (8-40); MCH 31.4 pg (25.7-33.7); MCHC 34.6 g/dl (32.0-35.9); MEAN CELL VOLUME 90.6 fl (80-96); MEAN PLT VOLUME 7.3 fl (7.5-11.1); MONO % 16.7 % (3.8-10.2); PLATELET COUNT 281 10^3/uL (134-434); RBC 2.71 M/mm3 (4.00-5.60); RDW 12.9 % (11.9-15.9); WHITE BLOOD COUNT 8.3 K/mm3 (4.0-10.0)
[2022-05-08 07:13] LABS: CHLORIDE 99 mmol/L (98-107); SODIUM 136 mmol/L (136-145)
[2022-05-08 07:15] LABS: ANION GAP 10 MMOL/L (8-16); CALCIUM 8.1 mg/dL (8.5-10.1); CO2 28 mmol/L (21-32); GLUCOSE,RANDOM 161 mg/dL (74-106)
[2022-05-08 07:16] LABS: BLOOD UREA NITROGEN 57.3 mg/dL (7-18)
[2022-05-08 07:19] LABS: SGOT/AST 35 U/L (15-37); SGPT/ALT 28 U/L (13-61)
[2022-05-08 07:20] LABS: BILIRUBIN,TOTAL 0.6 mg/dL (0.2-1); TOT PROT 6.8 g/dl (6.4-8.2)
[2022-05-08 07:32] LABS: ALBUMIN 2.5 g/dl (3.4-5.0); ALK PHOS 179 U/L (45-117); CREATININE 10.3 mg/dL (0.55-1.3)
[2022-05-08] MEDS: ASPIRIN COATED 81 MG TABLET.EC PO SCH (12:11)
[2022-05-08] MEDS: LOSARTAN POTASSIUM 25 MG TABLET PO SCH (12:11)
[2022-05-08] MEDS: NIFEdipine E.R 60 MG TABLET PO SCH (12:11)
[2022-05-08] MEDS: TAMSULOSIN HCL 0.4 MG CAP PO SCH (12:12)
[2022-05-08] MEDS: COLLAGENASE CLOSTRIDIUM HIST. 30 GRAMS TUBE TP SCH (12:13)
[2022-05-08] MEDS: METOPROLOL TARTRATE 50 MG TABLET (FP) PO SCH ×2 (12:13→21:16)
[2022-05-08] MEDS: ERTAPENEM SODIUM 0.5 GM in SODIUM CHLORIDE 50 ML IVPB SCH (16:03)
[2022-05-08] MEDS: ACETAMINOPHEN 325 MG TABLET (FP) PO PRN (16:48)
[2022-05-08] MEDS: ATORVASTATIN CA 80 MG TABLET (FP) PO SCH (21:16)
[2022-05-08] MEDS: AMITRIPTYLINE HCL 10 MG TABLET PO SCH (21:16)
[2022-05-09] MEDS: FUROSEMIDE 40 MG TABLET (FP) PO SCH ×2 (06:32→14:27)
[2022-05-09] MEDS: NITROGLYCERIN 2% OINTMENT - 1GM PACKET TD SCH ×2 (06:32→12:04)
[2022-05-09] MEDS: hydrALAZINE HCL 50 MG TABLET (FP) PO SCH ×3 (06:32→21:22)
[2022-05-09] MEDS: GABAPENTIN 100 MG CAPSULE PO SCH ×3 (06:32→21:22)
[2022-05-09] MEDS ORDERED: SODIUM CHLORIDE 250 ML IV PRN ×2 (08:12→11:24)
[2022-05-09] MEDS ORDERED: EPOETIN ALFA-EPBX 10,000 UNIT/ML VIAL SQ ONE (08:14)
[2022-05-09 08:17] LABS: HEMATOCRIT 25.7 % (35.4-49); MCH 31.5 pg (25.7-33.7); MCHC 35.1 g/dl (32.0-35.9); MEAN CELL VOLUME 89.7 fl (80-96); MEAN PLT VOLUME 7.1 fl (7.5-11.1); PLATELET COUNT 304 10^3/uL (134-434); RBC 2.87 M/mm3 (4.00-5.60); RDW 12.7 % (11.9-15.9); WHITE BLOOD COUNT 8.4 K/mm3 (4.0-10.0)
[2022-05-09 08:32] LABS: CHLORIDE 98 mmol/L (98-107); SODIUM 137 mmol/L (136-145)
[2022-05-09 08:34] LABS: ANION GAP 9 MMOL/L (8-16); CALCIUM 8.4 mg/dL (8.5-10.1); CO2 29 mmol/L (21-32); GLUCOSE,RANDOM 116 mg/dL (74-106)
[2022-05-09 08:35] LABS: BLOOD UREA NITROGEN 43.9 mg/dL (7-18)
[2022-05-09 08:38] LABS: CREATININE 8.8 mg/dL (0.55-1.3)
[2022-05-09] MEDS: TAMSULOSIN HCL 0.4 MG CAP PO SCH ×2 (09:30→12:05)
[2022-05-09] MEDS: ERTAPENEM SODIUM 0.5 GM in SODIUM CHLORIDE 50 ML IVPB SCH ×2 (09:30→12:04)
[2022-05-09] MEDS: METOPROLOL TARTRATE 50 MG TABLET (FP) PO SCH ×3 (09:30→21:22)
[2022-05-09] MEDS: LOSARTAN POTASSIUM 25 MG TABLET PO SCH ×2 (09:30→12:05)
[2022-05-09] MEDS: COLLAGENASE CLOSTRIDIUM HIST. 30 GRAMS TUBE TP SCH ×2 (09:30→12:06)
[2022-05-09] MEDS: ASPIRIN COATED 81 MG TABLET.EC PO SCH ×2 (09:30→12:05)
[2022-05-09] MEDS: NIFEdipine E.R 60 MG TABLET PO SCH ×2 (09:30→12:04)
[2022-05-09] MEDS ORDERED: VANCOMYCIN/WATER FOR INJ (PEG) 1,000 MG/200 ML BAG IVPB ONE (12:18)
[2022-05-09] MEDS: ATORVASTATIN CA 80 MG TABLET (FP) PO SCH (21:23)
[2022-05-09] MEDS: AMITRIPTYLINE HCL 10 MG TABLET PO SCH (21:23)
[2022-05-10] MEDS: hydrALAZINE HCL 50 MG TABLET (FP) PO SCH ×3 (05:44→21:01)
[2022-05-10] MEDS: GABAPENTIN 100 MG CAPSULE PO SCH ×3 (05:44→21:01)
[2022-05-10] MEDS: FUROSEMIDE 40 MG TABLET (FP) PO SCH ×2 (05:45→13:45)
[2022-05-10] MEDS: ERTAPENEM SODIUM 0.5 GM in SODIUM CHLORIDE 50 ML IVPB SCH (11:33)
[2022-05-10] MEDS: NIFEdipine E.R 60 MG TABLET PO SCH (11:34)
[2022-05-10] MEDS: TAMSULOSIN HCL 0.4 MG CAP PO SCH (11:34)
[2022-05-10] MEDS: ISOSORBIDE MONONITRATE 30 MG TAB.SR.24H (FP) PO SCH (11:34)
[2022-05-10] MEDS: ASPIRIN COATED 81 MG TABLET.EC PO SCH (11:34)
[2022-05-10] MEDS: METOPROLOL TARTRATE 50 MG TABLET (FP) PO SCH ×2 (11:34→21:01)
[2022-05-10] MEDS: COLLAGENASE CLOSTRIDIUM HIST. 30 GRAMS TUBE TP SCH (11:35)
[2022-05-10] MEDS: LOSARTAN POTASSIUM 25 MG TABLET PO SCH (11:35)
[2022-05-10] MEDS: HEPARIN NA (PORCINE) 5,000 UNITS/ML 1ML VIAL SQ SCH (21:00)
[2022-05-10] MEDS: AMITRIPTYLINE HCL 10 MG TABLET PO SCH (21:00)
[2022-05-10] MEDS: ATORVASTATIN CA 80 MG TABLET (FP) PO SCH (21:01)
[2022-05-11] MEDS: GABAPENTIN 100 MG CAPSULE PO SCH ×3 (06:24→21:32)
[2022-05-11] MEDS: hydrALAZINE HCL 50 MG TABLET (FP) PO SCH ×3 (06:24→21:32)
[2022-05-11] MEDS: FUROSEMIDE 40 MG TABLET (FP) PO SCH ×2 (06:24→13:18)
[2022-05-11] MEDS: TAMSULOSIN HCL 0.4 MG CAP PO SCH (09:29)
[2022-05-11] MEDS: HEPARIN NA (PORCINE) 5,000 UNITS/ML 1ML VIAL SQ SCH ×2 (09:29→21:32)
[2022-05-11] MEDS: NIFEdipine E.R 60 MG TABLET PO SCH (09:30)
[2022-05-11] MEDS: LOSARTAN POTASSIUM 25 MG TABLET PO SCH (09:30)
[2022-05-11] MEDS: ISOSORBIDE MONONITRATE 30 MG TAB.SR.24H (FP) PO SCH (09:30)
[2022-05-11] MEDS: COLLAGENASE CLOSTRIDIUM HIST. 30 GRAMS TUBE TP SCH (09:30)
[2022-05-11] MEDS: ASPIRIN COATED 81 MG TABLET.EC PO SCH (09:30)
[2022-05-11] MEDS: METOPROLOL TARTRATE 50 MG TABLET (FP) PO SCH ×2 (09:30→21:32)
[2022-05-11] MEDS: ERTAPENEM SODIUM 0.5 GM in SODIUM CHLORIDE 50 ML IVPB SCH (11:21)
[2022-05-11] MEDS ORDERED: VANCOMYCIN/WATER FOR INJ (PEG) 1,000 MG/200 ML BAG IVPB ONE (13:30)
[2022-05-11] MEDS: ATORVASTATIN CA 80 MG TABLET (FP) PO SCH (21:32)
[2022-05-11] MEDS: AMITRIPTYLINE HCL 10 MG TABLET PO SCH (21:32)
[2022-05-12] MEDS: GABAPENTIN 100 MG CAPSULE PO SCH ×3 (06:32→21:57)
[2022-05-12] MEDS: FUROSEMIDE 40 MG TABLET (FP) PO SCH ×2 (06:32→16:33)
[2022-05-12] MEDS: hydrALAZINE HCL 50 MG TABLET (FP) PO SCH ×3 (06:32→21:57)
[2022-05-12 08:05] LABS: CHLORIDE 96 mmol/L (98-107); SODIUM 136 mmol/L (136-145)
[2022-05-12 08:09] LABS: CALCIUM 8.6 mg/dL (8.5-10.1)
[2022-05-12 08:11] LABS: ALBUMIN 2.7 g/dl (3.4-5.0); ANION GAP 11 MMOL/L (8-16); BLOOD UREA NITROGEN 37.2 mg/dL (7-18); CO2 29 mmol/L (21-32); GLUCOSE,RANDOM 112 mg/dL (74-106)
[2022-05-12 08:13] LABS: SGOT/AST 24 U/L (15-37); SGPT/ALT 23 U/L (13-61)
[2022-05-12 08:15] LABS: BILIRUBIN,TOTAL 0.5 mg/dL (0.2-1)
[2022-05-12 08:16] LABS: ALK PHOS 147 U/L (45-117); CREATININE 9.3 mg/dL (0.55-1.3)
[2022-05-12] MEDS ORDERED: REGADENOSON 0.4 MG/5 ML PRE-FILLED SYRINGE IVPUSH ONE ×2 (09:21→09:30)
[2022-05-12] MEDS: ERTAPENEM SODIUM 0.5 GM in SODIUM CHLORIDE 50 ML IVPB SCH (11:21)
[2022-05-12] MEDS: TAMSULOSIN HCL 0.4 MG CAP PO SCH (11:22)
[2022-05-12] MEDS: ISOSORBIDE MONONITRATE 30 MG TAB.SR.24H (FP) PO SCH (11:22)
[2022-05-12] MEDS: HEPARIN NA (PORCINE) 5,000 UNITS/ML 1ML VIAL SQ SCH ×2 (11:22→21:57)
[2022-05-12] MEDS: ASPIRIN COATED 81 MG TABLET.EC PO SCH (11:22)
[2022-05-12] MEDS: COLLAGENASE CLOSTRIDIUM HIST. 30 GRAMS TUBE TP SCH (11:25)
[2022-05-12] MEDS ORDERED: EPOETIN ALFA-EPBX 10,000 UNIT/ML VIAL IVPUSH ONE (12:00)
[2022-05-12] MEDS: NIFEdipine E.R 60 MG TABLET PO SCH (16:32)
[2022-05-12] MEDS: LOSARTAN POTASSIUM 25 MG TABLET PO SCH (16:32)
[2022-05-12] MEDS: METOPROLOL TARTRATE 50 MG TABLET (FP) PO SCH ×2 (16:37→21:57)
[2022-05-12] MEDS: ACETAMINOPHEN 325 MG TABLET (FP) PO PRN (21:56)
[2022-05-12] MEDS: ATORVASTATIN CA 80 MG TABLET (FP) PO SCH (21:57)
[2022-05-12] MEDS: AMITRIPTYLINE HCL 10 MG TABLET PO SCH (21:58)
[2022-05-13] MEDS: hydrALAZINE HCL 50 MG TABLET (FP) PO SCH ×3 (05:35→21:20)
[2022-05-13] MEDS: FUROSEMIDE 40 MG TABLET (FP) PO SCH ×2 (05:35→13:22)
[2022-05-13] MEDS: GABAPENTIN 100 MG CAPSULE PO SCH ×3 (05:35→21:20)
[2022-05-13] MEDS: ISOSORBIDE MONONITRATE 30 MG TAB.SR.24H (FP) PO SCH (10:02)
[2022-05-13] MEDS: NIFEdipine E.R 60 MG TABLET PO SCH (10:02)
[2022-05-13] MEDS: ASPIRIN COATED 81 MG TABLET.EC PO SCH (10:02)
[2022-05-13] MEDS: LOSARTAN POTASSIUM 25 MG TABLET PO SCH (10:02)
[2022-05-13] MEDS: METOPROLOL TARTRATE 50 MG TABLET (FP) PO SCH ×2 (10:03→21:20)
[2022-05-13] MEDS: TAMSULOSIN HCL 0.4 MG CAP PO SCH (10:03)
[2022-05-13] MEDS: HEPARIN NA (PORCINE) 5,000 UNITS/ML 1ML VIAL SQ SCH ×2 (10:03→21:20)
[2022-05-13] MEDS: ERTAPENEM SODIUM 0.5 GM in SODIUM CHLORIDE 50 ML IVPB SCH (10:03)
[2022-05-13] MEDS: COLLAGENASE CLOSTRIDIUM HIST. 30 GRAMS TUBE TP SCH (10:04)
[2022-05-13] MEDS: AMITRIPTYLINE HCL 10 MG TABLET PO SCH (21:20)
[2022-05-13] MEDS: ATORVASTATIN CA 80 MG TABLET (FP) PO SCH (21:20)
[2022-05-14] MEDS: ACETAMINOPHEN 325 MG TABLET (FP) PO PRN (00:43)
[2022-05-14] MEDS: FUROSEMIDE 40 MG TABLET (FP) PO SCH ×2 (06:20→14:14)
[2022-05-14] MEDS: GABAPENTIN 100 MG CAPSULE PO SCH ×2 (06:20→14:14)
[2022-05-14] MEDS: hydrALAZINE HCL 50 MG TABLET (FP) PO SCH ×2 (06:20→14:14)
[2022-05-14] MEDS ORDERED: EPOETIN ALFA-EPBX 10,000 UNIT/ML VIAL SQ ONE (08:00)
[2022-05-14] MEDS ORDERED: SODIUM CHLORIDE 250 ML IV PRN (08:00)
[2022-05-14] MEDS: ISOSORBIDE MONONITRATE 30 MG TAB.SR.24H (FP) PO SCH (12:27)
[2022-05-14] MEDS: NIFEdipine E.R 60 MG TABLET PO SCH (12:27)
[2022-05-14] MEDS: TAMSULOSIN HCL 0.4 MG CAP PO SCH (12:27)
[2022-05-14] MEDS: METOPROLOL TARTRATE 50 MG TABLET (FP) PO SCH (12:27)
[2022-05-14] MEDS: LOSARTAN POTASSIUM 25 MG TABLET PO SCH (12:27)
[2022-05-14] MEDS: COLLAGENASE CLOSTRIDIUM HIST. 30 GRAMS TUBE TP SCH (12:27)
[2022-05-14] MEDS: HEPARIN NA (PORCINE) 5,000 UNITS/ML 1ML VIAL SQ SCH (12:27)
[2022-05-14] MEDS: ASPIRIN COATED 81 MG TABLET.EC PO SCH (12:27)
[2022-05-14] MEDS: ERTAPENEM SODIUM 0.5 GM in SODIUM CHLORIDE 50 ML IVPB SCH (14:08)
[2022-05-14 15:23] VITALS: BP 146/79; PULSE 67; TEMP 98.5
== END 2022-05-14 16:59 | disposition home or self-care (01) | DRG 637 ==
LOC: JER 23:07 → JERBED 05-05 02:57 → J4W 05-05 21:50
PROVIDERS: ADMIT Internal Medicine; ATTEND Family Medicine
PROC: 0Y9N0ZX Drainage of Left Foot, Open Approach, Diagnostic (ICD-10-PCS; 2022-05-06)
PROC: 5A1D70Z Performance of Urinary Filtration, Intermittent, Less than 6 Hours Per Day (ICD-10-PCS; 2022-05-06)
PROC: 5A1D70Z Performance of Urinary Filtration, Intermittent, Less than 6 Hours Per Day (ICD-10-PCS; 2022-05-07)
PROC: 5A1D70Z Performance of Urinary Filtration, Intermittent, Less than 6 Hours Per Day (ICD-10-PCS; 2022-05-08)
PROC: 5A1D70Z Performance of Urinary Filtration, Intermittent, Less than 6 Hours Per Day (ICD-10-PCS; 2022-05-09)
PROC: 5A1D70Z Performance of Urinary Filtration, Intermittent, Less than 6 Hours Per Day (ICD-10-PCS; 2022-05-10)
PROC: 5A1D70Z Performance of Urinary Filtration, Intermittent, Less than 6 Hours Per Day (ICD-10-PCS; 2022-05-12)
PROC: 02HV33Z Insertion of Infusion Device into Superior Vena Cava, Percutaneous Approach (ICD-10-PCS; principal; 2022-05-14)
PROC: B518ZZA Fluoroscopy of Superior Vena Cava, Guidance (ICD-10-PCS; 2022-05-14)
PROC: 5A1D70Z Performance of Urinary Filtration, Intermittent, Less than 6 Hours Per Day (ICD-10-PCS; 2022-05-14)
DX: E11.69 Type 2 diabetes mellitus with other specified complication (principal); J18.9 Pneumonia, unspecified organism; L03.116 Cellulitis of left lower limb; L02.612 Cutaneous abscess of left foot; M86.8X7 Other osteomyelitis, ankle and foot; I24.8 Other forms of acute ischemic heart disease; I43 Cardiomyopathy in diseases classified elsewhere; J90 Pleural effusion, not elsewhere classified; L97.528 Non-pressure chronic ulcer of other part of left foot with other specified severity; I13.2 Hypertensive heart and chronic kidney disease with heart failure and with stage 5 chronic kidney disease, or end stage renal disease; I50.9 Heart failure, unspecified; N18.6 End stage renal disease; K21.9 Gastro-esophageal reflux disease without esophagitis; N40.0 Benign prostatic hyperplasia without lower urinary tract symptoms; I25.2 Old myocardial infarction; R00.0 Tachycardia, unspecified; I25.10 Atherosclerotic heart disease of native coronary artery without angina pectoris; E78.5 Hyperlipidemia, unspecified; D64.9 Anemia, unspecified; R74.8 Abnormal levels of other serum enzymes; R60.0 Localized edema; R09.02 Hypoxemia; E11.42 Type 2 diabetes mellitus with diabetic polyneuropathy; B96.20 Unspecified Escherichia coli [E. coli] as the cause of diseases classified elsewhere; E11.65 Type 2 diabetes mellitus with hyperglycemia; D72.829 Elevated white blood cell count, unspecified; R07.89 Other chest pain; I11.9 Hypertensive heart disease without heart failure; E66.9 Obesity, unspecified; Z68.30 Body mass index [BMI] 30.0-30.9, adult; E11.621 Type 2 diabetes mellitus with foot ulcer; E11.22 Type 2 diabetes mellitus with diabetic chronic kidney disease; Z99.2 Dependence on renal dialysis
CPT/HCPCS: 0241U-QW; 36415; 36558; 71045-TC-FY; 71275-TC; 73590-TC-LT-FY; 73630-TC-LT; 73718-TC-LT; 74176-TC; 77001-TC-FY; 78452-TC; 80048; 80053; 81003; 82803; 82962; 83605; 83735; 84484; 85025; 85027; 85610; 85730; 86803; 86850; 86900; 86901; 87040; 87070; 87086; 87186; 87205; 87340; 93005; 93010; 93017; 93306-TC; 93971-TC; 99285-25; A9502; C1751; G0480; J1644; J2785; Q5106; Q9967

== ENCOUNTER → 2022-06-23 | Day surgery (SDC) | payer OTHER | END | disposition home or self-care (01) | LOC: JRADIR 09:09 | PROVIDERS: ATTEND Internal Medicine | PROC: 02PY03Z Removal of Infusion Device from Great Vessel, Open Approach (ICD-10-PCS; principal; 2022-06-23) | DX: Z45.2 Encounter for adjustment and management of vascular access device (principal) | CPT/HCPCS: 36589 ==

== ENCOUNTER 2022-09-17 15:51 | Inpatient (IN) | payer OTHER ==
[2022-09-17] MEDS ORDERED: TRIMETHOBENZAMIDE HCL 200MG/2ML INJ IM ONE ×2 (16:37→16:53)
[2022-09-17] MEDS ORDERED: FAMOTIDINE 20 MG/50 ML IVPB 20 MG/50 ML MG IVPB ONE ×2 (16:37→16:54)
[2022-09-17] MEDS ORDERED: MAG HYDROX/AL HYDROX/SIMETH -MYLANTA- ORAL SUSPENSION PO ONE (16:37)
[2022-09-17] MEDS ORDERED: ACETAMINOPHEN 1000 MG/100 ML BAG IVPB ONE (16:37)
[2022-09-17] MEDS ORDERED: MAG HYDROX/AL HYDROX/SIMETH 30 ML UNIT-DOSE CUP ONE (16:53)
[2022-09-17] MEDS ORDERED: ACETAMINOPHEN INJECTION 100 ML IVPB ONE (16:53)
[2022-09-17] MEDS ORDERED: ALBUTEROL SO4 2.5/IPRATROPIUM 0.5 INH SOL 3 ML VIAL.NEB. NEB ONE (17:01)
[2022-09-17] MEDS: ALBUTEROL SO4 2.5/IPRATROPIUM 0.5 INH SOL 3 ML VIAL.NEB. NEB SCH ×2 (17:25→18:00)
[2022-09-17 17:35] LABS: BASO % 1.3 % (0-2.0); EOS % 0.7 % (0-4.5); HEMATOCRIT 30.7 % (35.4-49); HEMOGLOBIN 10.5 GM/dL (11.7-16.9); LYMPH % 6.7 % (8-40); MCHC 34.3 g/dl (32.0-35.9); MEAN CELL VOLUME 90.2 fl (80-96); MEAN PLT VOLUME 7.5 fl (7.5-11.1); MONO % 12.2 % (3.8-10.2); NEUT % 79.1 % (42.8-82.8); PLATELET COUNT 234 10^3/uL (134-434); RDW 13.5 % (11.9-15.9); VENOUS BASE EXCESS 4.7 mmol/L (-2-2); VENOUS O2 SATURATION 78.2 % (70-80); VENOUS PCO2 44.8 mmHg (38-52); VENOUS PH 7.438 (7.310-7.410)
[2022-09-17 17:42] LABS: INR 1.21 (0.83-1.09); PROTHROMBIN TIME (PATIENT) 13.9 SEC (9.7-13.0)
[2022-09-17 17:45] LABS: ACTIVATED PTT 36.9 SECONDS (25.2-36.5)
[2022-09-17 17:54] LABS: CHLORIDE 99 mmol/L (98-107); SODIUM 138 mmol/L (136-145)
[2022-09-17 17:56] LABS: ALBUMIN 3.4 g/dl (3.4-5.0); ANION GAP 7 MMOL/L (8-16); CALCIUM 9.3 mg/dL (8.5-10.1); CO2 32 mmol/L (21-32); GLUCOSE,RANDOM 136 mg/dL (74-106); LIPASE 117 U/L (73-393)
[2022-09-17 17:57] LABS: BLOOD UREA NITROGEN 18.5 mg/dL (7-18)
[2022-09-17 17:59] LABS: CREATININE 5.6 mg/dL (0.55-1.3); SGOT/AST 19 U/L (15-37)
[2022-09-17 18:01] LABS: BILIRUBIN,TOTAL 0.6 mg/dL (0.2-1); SGPT/ALT 19 U/L (13-61)
[2022-09-17 18:02] LABS: ALK PHOS 80 U/L (45-117)
[2022-09-17 18:03] LABS: N-TERMINAL BNP 6699.2 pg/ml (5-125); TOT PROT 7.8 g/dl (6.4-8.2)
[2022-09-17] MEDS ORDERED: ASPIRIN 81 MG CHEWABLE TABLETS PO ONE (18:09)
[2022-09-17] MEDS ORDERED: VANCOMYCIN 1 GM in D5W (PRE-DOCKED) 1,000 MG/250 ML IVPB ONE (19:08)
[2022-09-17] MEDS ORDERED: PIPERACILLIN/TAZOB 4.5 GM 4.5 GM in DEXTROSE 5%-WATER 100 ML IVPB ONE (19:08)
[2022-09-17] MEDS ORDERED: PIPERACILLIN/TAZOB 4.5 GM 4.5 GM/100 ML BAG IVPB ONE (20:11)
[2022-09-17] MEDS ORDERED: VANCOMYCIN/WATER FOR INJ (PEG) 1,000 MG/200 ML BAG IVPB ONE (20:11)
[2022-09-17] MEDS ORDERED: ASPIRIN 81 MG CHEWABLE TABLETS ONE (20:20)
[2022-09-17] MEDS ORDERED: GABAPENTIN 100 MG CAPSULE ONE (20:25)
[2022-09-17] MEDS ORDERED: GABAPENTIN 100 MG CAPSULE PO ONE (20:25)
[2022-09-17] MEDS ORDERED: ACETAMINOPHEN 325 MG TABLET (FP) PO PRN (22:01)
[2022-09-17] MEDS ORDERED: POLYETHYLENE GLYCOL (HEALTHYLAX) 3350 17 GM PACKET PO PRN (22:15)
[2022-09-17] MEDS: INSULIN SLIDING SCALE (NOVOLOG) 1 VIAL SQ SCH (22:30)
[2022-09-17] MEDS: GABAPENTIN 100 MG CAPSULE PO SCH (23:17)
[2022-09-18 00:56] VITALS: BMI 33.5
[2022-09-18] MEDS: GABAPENTIN 100 MG CAPSULE PO SCH ×3 (05:56→22:26)
[2022-09-18] MEDS: PIPERACILLIN/TAZOB 2.25 GM 2.25 GM in DEXTROSE 5%-WATER - 50 ML IVPB SCH ×3 (05:56→17:41)
[2022-09-18] MEDS: HEPARIN NA (PORCINE) 5,000 UNITS/ML 1ML VIAL SQ SCH ×3 (05:56→22:26)
[2022-09-18] MEDS ORDERED: PIPERACILLIN/TAZOB 2.25 GM 2.25 GM in DEXTROSE 5%-WATER - 50 ML IVPB SCH (06:00)
[2022-09-18] MEDS: INSULIN SLIDING SCALE (NOVOLOG) 1 VIAL SQ SCH ×4 (06:01→22:26)
[2022-09-18 07:32] LABS: BASO % 1.1 % (0-2.0); EOS % 2.3 % (0-4.5); HEMATOCRIT 29.8 % (35.4-49); HEMOGLOBIN 9.9 GM/dL (11.7-16.9); LYMPH % 9.7 % (8-40); MCH 30.3 pg (25.7-33.7); MCHC 33.1 g/dl (32.0-35.9); MEAN CELL VOLUME 91.7 fl (80-96); MEAN PLT VOLUME 8.2 fl (7.5-11.1); MONO % 13.3 % (3.8-10.2); NEUT % 73.6 % (42.8-82.8); PLATELET COUNT 217 10^3/uL (134-434); RBC 3.25 M/mm3 (4.00-5.60); RDW 13.8 % (11.9-15.9); WHITE BLOOD COUNT 8.9 K/mm3 (4.0-10.0)
[2022-09-18 07:50] LABS: CHLORIDE 98 mmol/L (98-107); SODIUM 137 mmol/L (136-145)
[2022-09-18 08:04] LABS: ANION GAP 9 MMOL/L (8-16); CO2 30 mmol/L (21-32)
[2022-09-18 08:05] LABS: BLOOD UREA NITROGEN 32.4 mg/dL (7-18); CALCIUM 9.1 mg/dL (8.5-10.1); GLUCOSE,RANDOM 242 mg/dL (74-106); MAGNESIUM 2.1 mg/dL (1.8-2.4)
[2022-09-18 08:08] LABS: CREATININE 7.3 mg/dL (0.55-1.3); PHOSPHOROUS 4.4 mg/dL (2.5-4.9)
[2022-09-18] MEDS: FUROSEMIDE 40 MG TABLET (FP) PO SCH (09:47)
[2022-09-18] MEDS: ASPIRIN COATED 81 MG TABLET.EC PO SCH (09:47)
[2022-09-18] MEDS: ISOSORBIDE MONONITRATE 30 MG TAB.SR.24H (FP) PO SCH (09:47)
[2022-09-18] MEDS: amLODIPine BESYLATE 10 MG TABLET (FP) PO SCH (09:47)
[2022-09-18] MEDS ORDERED: FLU VACC QS2022-23(6MOS UP)/PF 60 MCG/0.5 ML SYRINGE IM ONE (10:00)
[2022-09-18] MEDS ORDERED: SODIUM CHLORIDE 250 ML IV PRN (10:21)
[2022-09-18] MEDS: COLLAGENASE CLOSTRIDIUM HIST. 30 GRAMS TUBE TP SCH (12:00)
[2022-09-18] MEDS ORDERED: hydrALAZINE HCL 20 MG/ML VIAL IVPUSH ONE (17:23)
[2022-09-18] MEDS: ATORVASTATIN CA 40 MG TABLET (FP) PO SCH (22:23)
[2022-09-18] MEDS: hydrALAZINE HCL 50 MG TABLET (FP) PO SCH (22:23)
[2022-09-19] MEDS: PIPERACILLIN/TAZOB 2.25 GM 2.25 GM in DEXTROSE 5%-WATER - 50 ML IVPB SCH ×4 (01:37→16:59)
[2022-09-19] MEDS: hydrALAZINE HCL 50 MG TABLET (FP) PO SCH ×3 (05:57→21:25)
[2022-09-19] MEDS: GABAPENTIN 100 MG CAPSULE PO SCH ×3 (05:57→21:25)
[2022-09-19] MEDS: HEPARIN NA (PORCINE) 5,000 UNITS/ML 1ML VIAL SQ SCH ×3 (05:57→21:25)
[2022-09-19] MEDS: INSULIN SLIDING SCALE (NOVOLOG) 1 VIAL SQ SCH ×4 (06:18→21:31)
[2022-09-19] MEDS ORDERED: EPOETIN ALFA-EPBX 4,000 UNIT/ML VIAL IVPUSH ONE (09:00)
[2022-09-19] MEDS ORDERED: SODIUM CHLORIDE 250 ML IV PRN (09:00)
[2022-09-19] MEDS: ISOSORBIDE MONONITRATE 30 MG TAB.SR.24H (FP) PO SCH ×2 (10:43→12:32)
[2022-09-19] MEDS: FUROSEMIDE 40 MG TABLET (FP) PO SCH (10:43)
[2022-09-19] MEDS: ASPIRIN COATED 81 MG TABLET.EC PO SCH (10:43)
[2022-09-19] MEDS: amLODIPine BESYLATE 10 MG TABLET (FP) PO SCH (10:44)
[2022-09-19] MEDS: COLLAGENASE CLOSTRIDIUM HIST. 30 GRAMS TUBE TP SCH ×2 (10:44→12:31)
[2022-09-19] MEDS ORDERED: INSULIN (NOVOLOG) ASPART 100 UNITS/ML 10ML VIAL ONE (16:55)
[2022-09-19] MEDS: ATORVASTATIN CA 40 MG TABLET (FP) PO SCH (21:25)
[2022-09-19] MEDS: METOPROLOL TARTRATE 25 MG TABLET (FP) PO SCH (21:25)
[2022-09-20] MEDS: PIPERACILLIN/TAZOB 2.25 GM 2.25 GM in DEXTROSE 5%-WATER - 50 ML IVPB SCH ×3 (01:21→17:04)
[2022-09-20] MEDS: GABAPENTIN 100 MG CAPSULE PO SCH ×3 (06:03→22:36)
[2022-09-20] MEDS: hydrALAZINE HCL 50 MG TABLET (FP) PO SCH ×3 (06:04→22:36)
[2022-09-20] MEDS: HEPARIN NA (PORCINE) 5,000 UNITS/ML 1ML VIAL SQ SCH ×3 (06:04→22:36)
[2022-09-20] MEDS: INSULIN SLIDING SCALE (NOVOLOG) 1 VIAL SQ SCH ×4 (06:15→22:45)
[2022-09-20] MEDS: ASPIRIN COATED 81 MG TABLET.EC PO SCH (09:16)
[2022-09-20] MEDS: METOPROLOL TARTRATE 25 MG TABLET (FP) PO SCH ×2 (09:16→22:36)
[2022-09-20] MEDS: ISOSORBIDE MONONITRATE 30 MG TAB.SR.24H (FP) PO SCH (09:16)
[2022-09-20] MEDS: FUROSEMIDE 40 MG TABLET (FP) PO SCH (09:16)
[2022-09-20] MEDS: COLLAGENASE CLOSTRIDIUM HIST. 30 GRAMS TUBE TP SCH (09:17)
[2022-09-20] MEDS ORDERED: INSULIN (LEVEMIR) 100 UNITS/ML UNITS SQ SCH ×2 (10:00)
[2022-09-20] MEDS: DOCUSATE SODIUM 100 MG CAPSULE (FP) PO SCH (22:36)
[2022-09-20] MEDS: ATORVASTATIN CA 40 MG TABLET (FP) PO SCH (22:36)
[2022-09-20] MEDS: INSULIN (LEVEMIR) 100 UNITS/ML UNITS SQ SCH (22:50)
[2022-09-21] MEDS: PIPERACILLIN/TAZOB 2.25 GM 2.25 GM in DEXTROSE 5%-WATER - 50 ML IVPB SCH ×3 (01:43→17:37)
[2022-09-21] MEDS: GABAPENTIN 100 MG CAPSULE PO SCH ×3 (05:28→21:58)
[2022-09-21] MEDS: hydrALAZINE HCL 50 MG TABLET (FP) PO SCH ×3 (05:28→21:58)
[2022-09-21] MEDS: HEPARIN NA (PORCINE) 5,000 UNITS/ML 1ML VIAL SQ SCH ×3 (05:28→21:58)
[2022-09-21] MEDS: INSULIN (LEVEMIR) 100 UNITS/ML UNITS SQ SCH ×2 (07:15→22:12)
[2022-09-21] MEDS: INSULIN SLIDING SCALE (NOVOLOG) 1 VIAL SQ SCH ×4 (07:16→22:13)
[2022-09-21] MEDS: ISOSORBIDE MONONITRATE 30 MG TAB.SR.24H (FP) PO SCH (10:40)
[2022-09-21] MEDS: COLLAGENASE CLOSTRIDIUM HIST. 30 GRAMS TUBE TP SCH (10:40)
[2022-09-21] MEDS: ASPIRIN COATED 81 MG TABLET.EC PO SCH (10:40)
[2022-09-21] MEDS: METOPROLOL TARTRATE 25 MG TABLET (FP) PO SCH ×2 (10:40→21:58)
[2022-09-21] MEDS: FUROSEMIDE 40 MG TABLET (FP) PO SCH (10:40)
[2022-09-21] MEDS: DOCUSATE SODIUM 100 MG CAPSULE (FP) PO SCH (21:58)
[2022-09-21] MEDS: ATORVASTATIN CA 40 MG TABLET (FP) PO SCH (21:58)
[2022-09-21 22:19] LABS: SYPHILIS W/ RPR CONF NON-REACTIVE (NONREACTIVE)
[2022-09-21 23:20] LABS: HIV INTERPRETATION NEGATIVE (NEGATIVE)
[2022-09-22] MEDS: PIPERACILLIN/TAZOB 2.25 GM 2.25 GM in DEXTROSE 5%-WATER - 50 ML IVPB SCH ×2 (02:22→12:46)
[2022-09-22] MEDS: HEPARIN NA (PORCINE) 5,000 UNITS/ML 1ML VIAL SQ SCH ×2 (05:21→13:21)
[2022-09-22] MEDS: hydrALAZINE HCL 50 MG TABLET (FP) PO SCH ×2 (05:21→13:21)
[2022-09-22] MEDS: GABAPENTIN 100 MG CAPSULE PO SCH ×2 (05:21→13:21)
[2022-09-22] MEDS: INSULIN (LEVEMIR) 100 UNITS/ML UNITS SQ SCH (06:53)
[2022-09-22] MEDS: INSULIN SLIDING SCALE (NOVOLOG) 1 VIAL SQ SCH ×3 (06:54→17:46)
[2022-09-22] MEDS ORDERED: SODIUM CHLORIDE 250 ML IV PRN (09:00)
[2022-09-22] MEDS ORDERED: EPOETIN ALFA-EPBX 4,000 UNIT/ML VIAL IVPUSH ONE (09:30)
[2022-09-22] MEDS: ASPIRIN COATED 81 MG TABLET.EC PO SCH (12:45)
[2022-09-22] MEDS: ISOSORBIDE MONONITRATE 30 MG TAB.SR.24H (FP) PO SCH (12:46)
[2022-09-22] MEDS: COLLAGENASE CLOSTRIDIUM HIST. 30 GRAMS TUBE TP SCH (12:46)
[2022-09-22] MEDS: FUROSEMIDE 40 MG TABLET (FP) PO SCH (12:46)
[2022-09-22] MEDS: METOPROLOL TARTRATE 25 MG TABLET (FP) PO SCH (12:46)
[2022-09-22 16:10] VITALS: BP 159/88; PULSE 82; RESP 20; TEMP 98.7
[2022-09-23 04:09] LABS: HCV ALPHA 2 MACRO CHART 234 mg/dL (110-276); NECRO.INFLAM ACT.SCORE 0.03 (0.00-0.17); NECROINFLAM. ACTIVITY GRADE A0-No activity (.)
[2022-09-23] MEDS ORDERED: AMOX TR/POT CLAV 500MG/125MG TABLETS (FP) PO SCH (10:00)
== END 2022-09-22 19:19 | disposition home or self-care (01) | DRG 193 ==
LOC: JER 15:51 → JERBED 17:09 → J4W 23:08
PROVIDERS: ADMIT Internal Medicine; ATTEND Family Medicine
PROC: 5A1D70Z Performance of Urinary Filtration, Intermittent, Less than 6 Hours Per Day (ICD-10-PCS; principal; 2022-09-22)
DX: J18.9 Pneumonia, unspecified organism (principal); I21.4 Non-ST elevation (NSTEMI) myocardial infarction; J96.01 Acute respiratory failure with hypoxia; N18.6 End stage renal disease; I13.2 Hypertensive heart and chronic kidney disease with heart failure and with stage 5 chronic kidney disease, or end stage renal disease; I42.9 Cardiomyopathy, unspecified; L97.909 Non-pressure chronic ulcer of unspecified part of unspecified lower leg with unspecified severity; I24.8 Other forms of acute ischemic heart disease; E11.42 Type 2 diabetes mellitus with diabetic polyneuropathy; E11.22 Type 2 diabetes mellitus with diabetic chronic kidney disease; Z99.2 Dependence on renal dialysis; E11.628 Type 2 diabetes mellitus with other skin complications; E78.5 Hyperlipidemia, unspecified; E11.65 Type 2 diabetes mellitus with hyperglycemia; I25.10 Atherosclerotic heart disease of native coronary artery without angina pectoris; K21.9 Gastro-esophageal reflux disease without esophagitis; E87.70 Fluid overload, unspecified; N40.0 Benign prostatic hyperplasia without lower urinary tract symptoms
CPT/HCPCS: 0241U-QW; 36415; 71046-TC-FY; 71275-TC; 80048; 80053; 82172; 82803; 82962; 82977; 83010; 83605; 83690; 83735; 83880; 83883; 84100; 84460; 84484; 85025; 85610; 85730; 86780; 86803; 87040; 87340; 87389; 87517; 93005; 93010; 93970-TC; 99285-25; G0008; J1644; Q2036; Q5106; Q9967

== ENCOUNTER 2022-09-26 19:18 | Observation (INO) | payer OTHER ==
[2022-09-26 19:46] VITALS: BMI 31.8
[2022-09-26 20:59] LABS: BASO % 2.1 % (0-2.0); EOS % 3.8 % (0-4.5); HEMATOCRIT 32.8 % (35.4-49); HEMOGLOBIN 11.3 GM/dL (11.7-16.9); LYMPH % 15.3 % (8-40); MCH 31.1 pg (25.7-33.7); MCHC 34.4 g/dl (32.0-35.9); MEAN CELL VOLUME 90.6 fl (80-96); MEAN PLT VOLUME 7.2 fl (7.5-11.1); MONO % 9.8 % (3.8-10.2); PLATELET COUNT 362 10^3/uL (134-434); RBC 3.62 M/mm3 (4.00-5.60); WHITE BLOOD COUNT 9.7 K/mm3 (4.0-10.0)
[2022-09-26 21:06] LABS: INR 1.09 (0.83-1.09); PROTHROMBIN TIME (PATIENT) 12.5 SEC (9.7-13.0)
[2022-09-26 21:09] LABS: ACTIVATED PTT 38.2 SECONDS (25.2-36.5)
[2022-09-26 21:19] LABS: CALCIUM 9.2 mg/dL (8.5-10.1)
[2022-09-26 21:21] LABS: ALBUMIN 3.5 g/dl (3.4-5.0); BLOOD UREA NITROGEN 16.9 mg/dL (7-18)
[2022-09-26 21:23] LABS: CREATININE 5.9 mg/dL (0.55-1.3)
[2022-09-26 21:25] LABS: BILIRUBIN,TOTAL 0.4 mg/dL (0.2-1); TOT PROT 8.2 g/dl (6.4-8.2)
[2022-09-26] MEDS ORDERED: ASPIRIN 81 MG CHEWABLE TABLETS PO ONE (22:17)
[2022-09-26] MEDS ORDERED: ASPIRIN 81 MG CHEWABLE TABLETS ONE (22:43)
[2022-09-26] MEDS ORDERED: DOCUSATE SODIUM 100 MG CAPSULE (FP) PO PRN (23:43)
[2022-09-26] MEDS ORDERED: ACETAMINOPHEN 325 MG TABLET (FP) PO PRN (23:43)
[2022-09-27] MEDS ORDERED: ACETAMINOPHEN 325 MG TABLET (FP) ONE (03:55)
[2022-09-27 06:30] LABS: BASO % 2.1 % (0-2.0); HEMATOCRIT 30.3 % (35.4-49); HEMOGLOBIN 10.8 GM/dL (11.7-16.9); LYMPH % 25.4 % (8-40); MCH 31.7 pg (25.7-33.7); MCHC 35.5 g/dl (32.0-35.9); MEAN CELL VOLUME 89.2 fl (80-96); MEAN PLT VOLUME 7.2 fl (7.5-11.1); MONO % 13.2 % (3.8-10.2); NEUT % 54.3 % (42.8-82.8); PLATELET COUNT 307 10^3/uL (134-434); WHITE BLOOD COUNT 7.8 K/mm3 (4.0-10.0)
[2022-09-27] MEDS ORDERED: DOCUSATE SODIUM 100 MG CAPSULE (FP) PO PRN (06:32)
[2022-09-27 06:44] LABS: CALCIUM 8.7 mg/dL (8.5-10.1)
[2022-09-27 06:46] LABS: BLOOD UREA NITROGEN 22.3 mg/dL (7-18); MAGNESIUM 2.1 mg/dL (1.8-2.4)
[2022-09-27 06:49] LABS: PHOSPHOROUS 5.9 mg/dL (2.5-4.9)
[2022-09-27 06:54] LABS: CREATININE 7.4 mg/dL (0.55-1.3)
[2022-09-27 06:55] VITALS: BP 149/95; PULSE 73; RESP 20; TEMP 98
[2022-09-27] MEDS ORDERED: INSULIN SLIDING SCALE (NOVOLOG) 1 VIAL SQ SCH (07:00)
[2022-09-27] MEDS ORDERED: POLYETHYLENE GLYCOL (HEALTHYLAX) 3350 17 GM PACKET PO PRN (08:16)
[2022-09-27] MEDS ORDERED: amLODIPine BESYLATE 10 MG TABLET (FP) ONE (08:32)
[2022-09-27] MEDS ORDERED: FUROSEMIDE 40 MG TABLET (FP) ONE (08:32)
[2022-09-27] MEDS ORDERED: NIFEdipine E.R 60 MG TABLET ONE (08:33)
[2022-09-27] MEDS ORDERED: ATORVASTATIN CA 40 MG TABLET (FP) ONE (08:33)
[2022-09-27] MEDS ORDERED: ASPIRIN 81 MG CHEWABLE TABLETS ONE (08:33)
[2022-09-27] MEDS ORDERED: ISOSORBIDE MONONITRATE 30 MG TAB.SR.24H (FP) PO ONE (08:33)
[2022-09-27] MEDS ORDERED: METOPROLOL TARTRATE 50 MG TABLET (FP) PO SCH (10:00)
[2022-09-27] MEDS ORDERED: FUROSEMIDE 40 MG TABLET (FP) PO SCH (10:00)
[2022-09-27] MEDS ORDERED: NIFEdipine E.R 60 MG TABLET PO SCH (10:00)
[2022-09-27] MEDS ORDERED: ASPIRIN COATED 81 MG TABLET.EC PO SCH (10:00)
[2022-09-27] MEDS ORDERED: ISOSORBIDE MONONITRATE 30 MG TAB.SR.24H (FP) PO SCH (10:00)
[2022-09-27] MEDS ORDERED: amLODIPine BESYLATE 10 MG TABLET (FP) PO SCH (10:00)
[2022-09-27] MEDS ORDERED: GABAPENTIN 100 MG CAPSULE PO SCH (14:00)
[2022-09-27] MEDS ORDERED: HEPARIN NA (PORCINE) 5,000 UNITS/ML 1ML VIAL SQ SCH (14:00)
[2022-09-27] MEDS ORDERED: hydrALAZINE HCL 50 MG TABLET (FP) PO SCH (14:00)
[2022-09-27] MEDS ORDERED: DOCUSATE SODIUM 100 MG CAPSULE (FP) PO SCH (22:00)
[2022-09-27] MEDS ORDERED: ATORVASTATIN CA 40 MG TABLET (FP) PO SCH (22:00)
== END 2022-09-27 12:30 | disposition left against medical advice (07) ==
LOC: JER 19:18 → JERBED 22:16
PROVIDERS: ADMIT Internal Medicine; ATTEND Family Medicine
DX: I25.10 Atherosclerotic heart disease of native coronary artery without angina pectoris (principal); E11.22 Type 2 diabetes mellitus with diabetic chronic kidney disease; R74.8 Abnormal levels of other serum enzymes; I13.2 Hypertensive heart and chronic kidney disease with heart failure and with stage 5 chronic kidney disease, or end stage renal disease; N18.6 End stage renal disease; Z99.2 Dependence on renal dialysis; Z96.41 Presence of insulin pump (external) (internal); K21.9 Gastro-esophageal reflux disease without esophagitis; N40.0 Benign prostatic hyperplasia without lower urinary tract symptoms; Z86.79 Personal history of other diseases of the circulatory system; E66.8 Other obesity; Z68.31 Body mass index [BMI] 31.0-31.9, adult; R42 Dizziness and giddiness
CPT/HCPCS: 36415; 71045-TC-FY; 80048; 80053; 82962; 83735; 84100; 84484; 85025; 85610; 85730; 93005; 93010; 99285-25; C9803-CS; G0378; U0003; U0005

== ENCOUNTER 2024-10-25 10:18 | Inpatient (IN) | payer OTHER ==
[2024-10-25] MEDS ORDERED: ACETAMINOPHEN INJECTION 100 ML ONE (12:00)
[2024-10-25] MEDS ORDERED: ONDANSETRON 4 MG/2 ML VIAL ONE (12:08)
[2024-10-25] MEDS: ACETAMINOPHEN 1000 MG/100 ML BAG IVPB ONE (12:11)
[2024-10-25 12:12] LABS: HEMATOCRIT 37.6 % (35.4-49); HEMOGLOBIN 11.9 GM/dL (11.7-16.9); MCHC 31.7 g/dl (32.0-35.9); MEAN CELL VOLUME 91.7 fl (80-96); MEAN PLT VOLUME 8.1 fl (7.5-11.1); PLATELET COUNT 227 10^3/uL (134-434); RDW 14.8 % (11.9-15.9); WHITE BLOOD COUNT 16.4 K/mm3 (4.0-10.0)
[2024-10-25] MEDS: ONDANSETRON 4 MG/2 ML VIAL IVPUSH ONE (12:13)
[2024-10-25 12:19] LABS: INR 1.23 (0.83-1.09); PROTHROMBIN TIME (PATIENT) 14.1 SEC (9.7-13.0)
[2024-10-25 12:21] LABS: ACTIVATED PTT 38.4 SECONDS (25.2-36.5)
[2024-10-25 12:38] LABS: CHLORIDE 95 mmol/L (98-107); POTASSIUM 4.8 mmol/L (3.5-5.1); SODIUM 131 mmol/L (136-145)
[2024-10-25 12:41] LABS: ALBUMIN 2.9 g/dl (3.4-5.0); ANION GAP 12 mmol/L (4-13); BLOOD UREA NITROGEN 46.5 mg/dL (7-18); CALCIUM 9.1 mg/dL (8.5-10.1); CO2 24 mmol/L (21-32); GLUCOSE,RANDOM 327 mg/dL (74-106); MAGNESIUM 2.4 mg/dL (1.8-2.4)
[2024-10-25 12:44] LABS: SGOT/AST 36 U/L (15-37); SGPT/ALT 30 U/L (13-61)
[2024-10-25 12:46] LABS: ANISOCYTOSIS 0; BILIRUBIN,TOTAL 0.7 mg/dL (0.2-1); HELMET CELLS 0; HOWELL-JOLLY BODIES 0; MACROCYTOSIS 0; OVALOCYTE 0; ROULEAU 0; SICKELED CELLS 0; TARGET CELLS 0; TEAR DROP CELLS 0; TOT PROT 7.8 g/dl (6.4-8.2); TOXIC GRANULATION 0
[2024-10-25] MEDS ORDERED: HYDROmorphone HCl 2 MG/ML VIAL ONE (12:46)
[2024-10-25 12:47] LABS: ALK PHOS 120 U/L (45-117)
[2024-10-25] MEDS: SODIUM CHLORIDE 0.9% 500 ML INFUS.BAG IV ONE (12:51)
[2024-10-25] MEDS: HYDROmorphone HCl 2 MG/ML VIAL IVPUSH ONE (12:51)
[2024-10-25 12:55] LABS: CREATININE 8.9 mg/dL (0.55-1.3)
[2024-10-25] MEDS ORDERED: VANCOMYCIN 1 GM PREMIX (F) 1 GM/200 ML BAG ONE (13:14)
[2024-10-25] MEDS ORDERED: PIPERACILLIN/TAZOB 2.25 GM 2.25 GM/50 ML BAG IVPB ONE (13:14)
[2024-10-25] MEDS: PIPERACILLIN/TAZOB 2.25 GM 2.25 GM in DEXTROSE 5%-WATER - 50 ML IVPB ONE (13:23)
[2024-10-25] MEDS: VANCOMYCIN 1,000 MG in DEXTROSE 5%-WATER - 250 ML IVPB ONE (13:49)
[2024-10-25 14:02] LABS: LACTIC ACID 2.1 mmol/L (0.4-2.0)
[2024-10-25 14:51] LABS: HIV INTERPRETATION NEGATIVE (NEGATIVE)
[2024-10-25] MEDS: METOPROLOL TARTRATE 25 MG TABLET (FP) PO SCH (21:53)
[2024-10-25] MEDS: HEPARIN NA (PORCINE) 5,000 UNITS/ML 1ML VIAL SQ SCH (21:53)
[2024-10-25] MEDS: hydrALAZINE HCL 50 MG TABLET (FP) PO SCH (21:53)
[2024-10-25] MEDS: ATORVASTATIN CA 80 MG TABLET (FP) PO SCH (21:53)
[2024-10-25] MEDS ORDERED: INSULIN ASPART SLIDING SCALE (NOVOLOG) 1 VIAL SQ SCH (22:00)
[2024-10-25] MEDS: INSULIN ASPART SLIDING SCALE (NOVOLOG) 1 VIAL SQ SCH (23:53)
[2024-10-26] MEDS: ONDANSETRON 4 MG/2 ML VIAL IVPUSH ONE (00:40)
[2024-10-26] MEDS: ACETAMINOPHEN 500 MG TABLET (FP) PO ONE (00:43)
[2024-10-26] MEDS: FAMOTIDINE 20 MG/50 ML IVPB 20 MG/50 ML MG IVPB ONE (00:44)
[2024-10-26] MEDS ORDERED: PIPERACILLIN/TAZOB 2.25 GM 2.25 GM in DEXTROSE 5%-WATER - 50 ML IVPB SCH (02:00)
[2024-10-26] MEDS: PIPERACILLIN/TAZOB 2.25 GM 2.25 GM/50 ML BAG IVPB SCH (03:06)
[2024-10-26] MEDS: FUROSEMIDE 40 MG TABLET (FP) PO SCH (05:44)
[2024-10-26] MEDS ORDERED: SODIUM CHLORIDE 250 ML IV PRN (08:29)
[2024-10-26 08:32] LABS: BASO % 0.6 % (0-2.0); EOS % 0.8 % (0-4.5); HEMATOCRIT 35.9 % (35.4-49); HEMOGLOBIN 11.5 GM/dL (11.7-16.9); LYMPH % 5.2 % (8-40); MCH 29.5 pg (25.7-33.7); MEAN CELL VOLUME 92.2 fl (80-96); MEAN PLT VOLUME 8.2 fl (7.5-11.1); MONO % 7.3 % (3.8-10.2); NEUT % 86.1 % (42.8-82.8); PLATELET COUNT 206 10^3/uL (134-434); RDW 14.8 % (11.9-15.9); WHITE BLOOD COUNT 12.9 K/mm3 (4.0-10.0)
[2024-10-26 08:59] LABS: CHLORIDE 94 mmol/L (98-107); POTASSIUM 4.9 mmol/L (3.5-5.1); SODIUM 129 mmol/L (136-145)
[2024-10-26 09:05] LABS: CALCIUM 9.1 mg/dL (8.5-10.1); GLUCOSE,RANDOM 254 mg/dL (74-106)
[2024-10-26 09:06] LABS: ALBUMIN 2.7 g/dl (3.4-5.0); ANION GAP 11 mmol/L (4-13); BLOOD UREA NITROGEN 61.3 mg/dL (7-18); CO2 24 mmol/L (21-32)
[2024-10-26 09:08] LABS: BILIRUBIN,TOTAL 0.9 mg/dL (0.2-1); CHOLESTEROL 71 mg/dL (50-200); MAGNESIUM 2.3 mg/dL (1.8-2.4)
[2024-10-26 09:09] LABS: SGOT/AST 20 U/L (15-37); TOT PROT 7.1 g/dl (6.4-8.2)
[2024-10-26 09:10] LABS: ALK PHOS 105 U/L (45-117); LDL CHOLESTEROL (ONLY SJRH) 34 mg/dL (5-100); PHOSPHOROUS 6.4 mg/dL (2.5-4.9); SGPT/ALT 28 U/L (13-61)
[2024-10-26 09:11] LABS: HDL CHOLESTEROL 19 mg/dL (40-60)
[2024-10-26 09:12] LABS: CREATININE 10.1 mg/dL (0.55-1.3)
[2024-10-26] MEDS: ASPIRIN COATED 81 MG TABLET.EC PO SCH (10:00)
[2024-10-26] MEDS: ISOSORBIDE MONONITRATE 30 MG TAB.SR.24H (FP) PO SCH (10:00)
[2024-10-26] MEDS: MEROPENEM-0.9% SODIUM CHLORIDE 1 GM/50 ML BAG IVPB ONE (10:01)
[2024-10-26] MEDS: COLLAGENASE CLOSTRIDIUM HIST. 30 GRAMS TUBE TP SCH (13:10)
[2024-10-26] MEDS: ACETAMINOPHEN 1000 MG/100 ML BAG IVPB PRN (14:30)
[2024-10-26] MEDS: MEROPENEM-0.9% SODIUM CHLORIDE 500 MG/50 ML BAG IVPB SCH (21:36)
[2024-10-26] MEDS: POLYETHYLENE GLYCOL (HEALTHYLAX) 3350 17 GM PACKET PO PRN (21:37)
[2024-10-27] MEDS ORDERED: SODIUM CHLORIDE 250 ML IV PRN (12:49)
[2024-10-27] MEDS: ACETAMINOPHEN 1000 MG/100 ML BAG IVPB PRN (14:29)
[2024-10-28 07:35] LABS: HEMATOCRIT 32.6 % (35.4-49); MCH 30.7 pg (25.7-33.7); MCHC 33.9 g/dl (32.0-35.9); MEAN CELL VOLUME 90.6 fl (80-96); MEAN PLT VOLUME 8.4 fl (7.5-11.1); PLATELET COUNT 209 10^3/uL (134-434); WHITE BLOOD COUNT 9.9 K/mm3 (4.0-10.0)
[2024-10-28 07:40] LABS: CHLORIDE 91 mmol/L (98-107); POTASSIUM 4.6 mmol/L (3.5-5.1); SODIUM 127 mmol/L (136-145)
[2024-10-28 07:51] LABS: ALBUMIN 2.6 g/dl (3.4-5.0); ANION GAP 11 mmol/L (4-13); BLOOD UREA NITROGEN 61.7 mg/dL (7-18); CALCIUM 8.9 mg/dL (8.5-10.1); CO2 25 mmol/L (21-32); GLUCOSE,RANDOM 309 mg/dL (74-106)
[2024-10-28 07:53] LABS: SGOT/AST 61 U/L (15-37); SGPT/ALT 56 U/L (13-61)
[2024-10-28 07:56] LABS: BILIRUBIN,TOTAL 1.1 mg/dL (0.2-1)
[2024-10-28 08:05] LABS: ALK PHOS 186 U/L (45-117); CREATININE 9.8 mg/dL (0.55-1.3)
[2024-10-28 08:57] LABS: ANISOCYTOSIS 0; MACROCYTOSIS 0
[2024-10-28] MEDS ORDERED: traMADol HCL 50 MG TABLET PO PRN (11:20)
[2024-10-30] MEDS: INSULIN (LEVEMIR) 100 UNITS/ML UNITS SQ SCH (22:14)
[2024-10-31 08:12] LABS: BASO % 1.2 % (0-2.0); EOS % 3.8 % (0-4.5); HEMATOCRIT 33.4 % (35.4-49); LYMPH % 11.9 % (8-40); MCH 30.3 pg (25.7-33.7); MCHC 32.9 g/dl (32.0-35.9); MEAN CELL VOLUME 92.1 fl (80-96); MEAN PLT VOLUME 8.3 fl (7.5-11.1); MONO % 9.4 % (3.8-10.2); NEUT % 73.7 % (42.8-82.8); PLATELET COUNT 242 10^3/uL (134-434); RBC 3.63 M/mm3 (4.00-5.60); RDW 15.3 % (11.9-15.9)
[2024-10-31 08:33] LABS: CHLORIDE 93 mmol/L (98-107); POTASSIUM 4.4 mmol/L (3.5-5.1); SODIUM 132 mmol/L (136-145)
[2024-10-31 08:38] LABS: ALBUMIN 2.6 g/dl (3.4-5.0); CALCIUM 8.8 mg/dL (8.5-10.1)
[2024-10-31 08:39] LABS: ANION GAP 13 mmol/L (4-13); BLOOD UREA NITROGEN 60.1 mg/dL (7-18); CO2 26 mmol/L (21-32); GLUCOSE,RANDOM 272 mg/dL (74-106)
[2024-10-31 08:41] LABS: SGPT/ALT 40 U/L (13-61)
[2024-10-31 08:42] LABS: SGOT/AST 39 U/L (15-37)
[2024-10-31 08:43] LABS: BILIRUBIN,TOTAL 0.7 mg/dL (0.2-1); CREATININE 11.5 mg/dL (0.55-1.3); TOT PROT 7.2 g/dl (6.4-8.2)
[2024-10-31 08:44] LABS: ALK PHOS 214 U/L (45-117)
[2024-10-31] MEDS: HEPARIN NA (PORCINE) 5,000 UNITS/ML 1ML VIAL IVPUSH ONE (09:20)
[2024-10-31] MEDS ORDERED: SODIUM CHLORIDE 250 ML IV PRN (10:00)
[2024-10-31] MEDS: HEPARIN NA (PORCINE) 5,000 UNITS/ML 1ML VIAL IVPUSH SCH (10:00)
[2024-10-31] MEDS: EPOETIN ALFA-EPBX 3,000 UNIT/ML VIAL IVPUSH ONE (10:27)
[2024-10-31] MEDS: CARVEDILOL 25 MG TABLET (FP) PO SCH (13:51)
[2024-10-31] MEDS: EMPAGLIFLOZIN (JARDIANCE) 10 MG TABLET PO SCH (16:15)
[2024-10-31 23:08] VITALS: BMI 32.9
[2024-11-01] MEDS: VITAMIN B COMP W-C 1 EA TABLET (NEPHRO-VITE) PO SCH (09:22)
[2024-11-01] MEDS ORDERED: SODIUM CHLORIDE 250 ML IV PRN (10:59)
[2024-11-01] MEDS ORDERED: POLYETHYLENE GLYCOL (HEALTHYLAX) 3350 17 GM PACKET PO PRN (18:51)
[2024-11-01] MEDS: ROSUVASTATIN CA 40 MG TABLET PO SCH (18:55)
[2024-11-01] MEDS: MEROPENEM-0.9% SODIUM CHLORIDE 500 MG/50 ML BAG IVPB SCH (21:23)
[2024-11-01] MEDS: INSULIN (LEVEMIR) 100 UNITS/ML UNITS SQ SCH (21:58)
[2024-11-01] MEDS: INSULIN ASPART SLIDING SCALE (NOVOLOG) 1 VIAL SQ SCH (21:59)
[2024-11-01] MEDS: CARVEDILOL 25 MG TABLET (FP) PO SCH (22:01)
[2024-11-01] MEDS: hydrALAZINE HCL 50 MG TABLET (FP) PO SCH (22:01)
[2024-11-01] MEDS: HEPARIN NA (PORCINE) 5,000 UNITS/ML 1ML VIAL SQ SCH (22:02)
[2024-11-01] MEDS: ACETAMINOPHEN 1000 MG/100 ML BAG IVPB PRN (22:53)
[2024-11-02] MEDS: FUROSEMIDE 40 MG TABLET (FP) PO SCH (06:11)
[2024-11-02] MEDS: EMPAGLIFLOZIN (JARDIANCE) 10 MG TABLET PO SCH (09:05)
[2024-11-02] MEDS: VITAMIN B COMP W-C 1 EA TABLET (NEPHRO-VITE) PO SCH (09:05)
[2024-11-02] MEDS: ASPIRIN COATED 81 MG TABLET.EC PO SCH (09:05)
[2024-11-02] MEDS: ISOSORBIDE MONONITRATE 30 MG TAB.SR.24H (FP) PO SCH (09:06)
[2024-11-02] MEDS: COLLAGENASE CLOSTRIDIUM HIST. 30 GRAMS TUBE TP SCH (09:08)
[2024-11-02] MEDS ORDERED: EPOETIN ALFA-EPBX 3,000 UNIT/ML VIAL IVPUSH ONE (10:59)
[2024-11-02] MEDS: ROSUVASTATIN CA 20 MG TABLET PO SCH (21:24)
[2024-11-03] MEDS: EMPAGLIFLOZIN (JARDIANCE) 10 MG TABLET PO SCH (06:31)
[2024-11-03] MEDS: EPOETIN ALFA-EPBX 3,000 UNIT/ML VIAL IVPUSH ONE (13:04)
[2024-11-03] MEDS ORDERED: SODIUM CHLORIDE 250 ML IV PRN (18:51)
[2024-11-04] MEDS ORDERED: SODIUM CHLORIDE 250 ML IV PRN (09:29)
[2024-11-04 11:38] VITALS: RESP 18
[2024-11-04 15:03] VITALS: BP 192/102; PULSE 82
[2024-11-04 15:38] VITALS: TEMP 98.4
== END 2024-11-04 17:36 | DRG 638 ==
LOC: JER 10:18 → JERBED 13:33 → J4W 17:05 → J8W 11-01 18:40
PROVIDERS: ADMIT Family Medicine; ATTEND Family Medicine
PROC: 5A1D70Z Performance of Urinary Filtration, Intermittent, Less than 6 Hours Per Day (ICD-10-PCS; principal; 2024-10-26)
DX: E11.69 Type 2 diabetes mellitus with other specified complication (principal); E87.1 Hypo-osmolality and hyponatremia; I13.2 Hypertensive heart and chronic kidney disease with heart failure and with stage 5 chronic kidney disease, or end stage renal disease; I24.89 Other forms of acute ischemic heart disease; L97.429 Non-pressure chronic ulcer of left heel and midfoot with unspecified severity; R78.81 Bacteremia; I25.2 Old myocardial infarction; E11.42 Type 2 diabetes mellitus with diabetic polyneuropathy; E11.22 Type 2 diabetes mellitus with diabetic chronic kidney disease; I50.9 Heart failure, unspecified; N18.6 End stage renal disease; E11.621 Type 2 diabetes mellitus with foot ulcer; Z99.2 Dependence on renal dialysis; E78.5 Hyperlipidemia, unspecified; K21.9 Gastro-esophageal reflux disease without esophagitis; N40.0 Benign prostatic hyperplasia without lower urinary tract symptoms; I25.10 Atherosclerotic heart disease of native coronary artery without angina pectoris; E11.51 Type 2 diabetes mellitus with diabetic peripheral angiopathy without gangrene
CPT/HCPCS: 0241U-QW; 36415; 71045-TC-FY; 71250-TC; 73590-TC-LT-FY; 73630-TC-LT; 73718-TC-LT; 73718-TC-RT; 80053; 80061; 82962; 83036; 83605; 83735; 84100; 84443; 84484; 85025; 85610; 85651; 85730; 86140; 86803; 86850; 86900; 86901; 87040; 87070; 87186; 87205; 87340; 87389; 93005; 93010; 93306-TC; 93925-TC; 93971-TC; 99291; G0480; J0131; J1644; Q5106

== ENCOUNTER 2024-11-09 04:28 | Inpatient (IN) | payer OTHER ==
[2024-11-09] MEDS: HEPARIN NA (PORCINE) 5,000 UNITS/ML 1ML VIAL SQ ONE
[2024-11-09] MEDS ORDERED: HEPARIN NA (PORCINE) 5,000 UNITS/ML 1ML VIAL ONE (09:07)
[2024-11-09] MEDS ORDERED: LIDOCAINE HCL 1%, 10 MG/ML (20ML VIAL) ONE (09:07)
[2024-11-09] MEDS ORDERED: PROPOFOL 20 ML ONE ×2 (09:32→10:48)
[2024-11-09] MEDS ORDERED: MIDAZOLAM HCL 2 MG/2 ML SINGLE DOSE VIAL ONE ×2 (09:33→10:17)
[2024-11-09] MEDS ORDERED: ceFAZolin SODIUM 1 GM VIAL ONE (09:43)
[2024-11-09] MEDS: ceFAZolin SODIUM 1 GM VIAL IVPB ONE (09:45)
[2024-11-09] MEDS: LIDOCAINE HCL 1%, 10 MG/ML (20ML VIAL) NR ONE ×2 (09:52)
[2024-11-09] MEDS ORDERED: ROCURONIUM BROMIDE 50 MG/5 ML SYRINGE ONE (10:13)
[2024-11-09] MEDS ORDERED: PROPOFOL 1,000,000 MCG/100 ML VIAL ONE (10:54)
[2024-11-09] MEDS ORDERED: PHENYLEPHRINE HCL 10 MG/1 ML SINGLE DOSE VIAL ONE ×2 (11:03→11:04)
[2024-11-09] MEDS ORDERED: NOREPINEPHRINE BITARTRATE 4 MG/4 ML ML IV ONE (11:05)
[2024-11-09] MEDS: PROPOFOL 1,000,000 MCG/100 ML VIAL IVPB SCH (12:00)
[2024-11-09 12:21] LABS: BASO % 1.9 % (0-2.0); EOS % 2.6 % (0-4.5); HEMATOCRIT 31.4 % (35.4-49); HEMOGLOBIN 9.8 GM/dL (11.7-16.9); LYMPH % 9.6 % (8-40); MCH 29.6 pg (25.7-33.7); MCHC 31.4 g/dl (32.0-35.9); MEAN CELL VOLUME 94.3 fl (80-96); MEAN PLT VOLUME 8.6 fl (7.5-11.1); MONO % 8.6 % (3.8-10.2); NEUT % 77.3 % (42.8-82.8); PLATELET COUNT 251 10^3/uL (134-434); RBC 3.33 M/mm3 (4.00-5.60); RDW 15.7 % (11.9-15.9); WHITE BLOOD COUNT 9.9 K/mm3 (4.0-10.0)
[2024-11-09 13:05] LABS: CHLORIDE 97 mmol/L (98-107); POTASSIUM 5.7 mmol/L (3.5-5.1); SODIUM 134 mmol/L (136-145)
[2024-11-09 13:14] LABS: ACTIVATED PTT > 200.0 SECONDS (25.2-36.5); ALBUMIN 2.9 g/dl (3.4-5.0); ALK PHOS 154 U/L (45-117); ANION GAP 14 mmol/L (4-13); BILIRUBIN,TOTAL 0.7 mg/dL (0.2-1); BLOOD UREA NITROGEN 47.2 mg/dL (7-18); CO2 23 mmol/L (21-32); CREATININE 9.5 mg/dL (0.55-1.3); GLUCOSE,RANDOM 181 mg/dL (74-106); MAGNESIUM 2.8 mg/dL (1.8-2.4); SGOT/AST 43 U/L (15-37); SGPT/ALT 25 U/L (13-61); TOT PROT 7.6 g/dl (6.4-8.2)
[2024-11-09 14:05] LABS: PHOSPHOROUS 8.5 mg/dL (2.5-4.9)
[2024-11-09] MEDS: ALBUTEROL SO4 2.5/IPRATROPIUM 0.5 INH SOL 3 ML VIAL.NEB. NEB SCH (15:40)
[2024-11-09] MEDS ORDERED: INSULIN REGULAR HUMAN 100 UNITS/ML *VIAL ONE (15:43)
[2024-11-09] MEDS ORDERED: DEXTROSE 50%-WATER 25 GM/50 ML DISP.SYRIN ONE ×2 (15:43→20:20)
[2024-11-09] MEDS: INSULIN (NOVOLOG) ASPART 100 UNITS/ML 10ML VIAL SQ ONE (15:50)
[2024-11-09] MEDS: DEXTROSE 50%-WATER - 25 GM/50 ML VIAL IVPUSH ONE ×2 (15:50→20:21)
[2024-11-09] MEDS: INSULIN REGULAR HUMAN 100 UNITS/ML *VIAL IVPUSH ONE ×2 (15:50→20:19)
[2024-11-09] MEDS: MUPIROCIN 2% TOPICAL OINTMENT FOR DECOLONIZATION NS SCH (16:45)
[2024-11-09 17:14] LABS: INR 1.23 (0.83-1.09); PROTHROMBIN TIME (PATIENT) 13.8 SEC (9.7-13.0)
[2024-11-09 17:17] LABS: ACTIVATED PTT 37.1 SECONDS (25.2-36.5)
[2024-11-09 19:09] LABS: HEMATOCRIT 33.3 % (35.4-49); HEMOGLOBIN 10.6 GM/dL (11.7-16.9); MCH 29.4 pg (25.7-33.7); MCHC 31.8 g/dl (32.0-35.9); MEAN CELL VOLUME 92.4 fl (80-96); MEAN PLT VOLUME 8.3 fl (7.5-11.1); PLATELET COUNT 235 10^3/uL (134-434); RDW 15.8 % (11.9-15.9); WHITE BLOOD COUNT 7.8 K/mm3 (4.0-10.0)
[2024-11-09 19:25] LABS: CHLORIDE 98 mmol/L (98-107); SODIUM 133 mmol/L (136-145)
[2024-11-09 19:27] LABS: BLOOD UREA NITROGEN 51.3 mg/dL (7-18); CALCIUM 8.5 mg/dL (8.5-10.1); CO2 23 mmol/L (21-32); GLUCOSE,RANDOM 170 mg/dL (74-106)
[2024-11-09 19:42] LABS: ANION GAP 12 mmol/L (4-13); CREATININE 9.9 mg/dL (0.55-1.3); POTASSIUM 6.7 mmol/L (3.5-5.1)
[2024-11-09] MEDS ORDERED: FUROSEMIDE 40 MG/4 ML INJECTABLE VIAL IVPUSH ONE (19:51)
[2024-11-09] MEDS: CALCIUM GLUCONATE 10% - 1,000 MG/10 ML VIAL IVPB ONE (20:20)
[2024-11-09] MEDS: FENTANYL NS IVPB 500 MCG/100 ML BAG IVPB SCH (20:43)
[2024-11-09 21:13] LABS: ARTERIAL BLOOD GAS PO2 159.4 mmHg (80-100); ARTERIAL BLOOD GAS pH 7.374 (7.350-7.450)
[2024-11-09 21:14] LABS: VENT MODE A/C; VENT RATE 15
[2024-11-09] MEDS: SODIUM ZIRCONIUM CYCLOSILICATE (LOKELMA) 5 GM PACKET PO SCH (21:23)
[2024-11-09] MEDS: CHLORHEXIDINE GLUCONATE 4% CLEANSER FOR DECOLONIZATION TP SCH (22:34)
[2024-11-10 00:53] LABS: CHLORIDE 100 mmol/L (98-107); POTASSIUM 5.7 mmol/L (3.5-5.1); SODIUM 135 mmol/L (136-145)
[2024-11-10 00:54] LABS: ANION GAP 11 mmol/L (4-13); CALCIUM 8.5 mg/dL (8.5-10.1); CO2 23 mmol/L (21-32)
[2024-11-10 00:55] LABS: BLOOD UREA NITROGEN 52.7 mg/dL (7-18); GLUCOSE,RANDOM 133 mg/dL (74-106)
[2024-11-10 01:30] LABS: CREATININE 10.2 mg/dL (0.55-1.3)
[2024-11-10 06:41] LABS: CHLORIDE 99 mmol/L (98-107); SODIUM 132 mmol/L (136-145)
[2024-11-10 06:46] LABS: HEMOGLOBIN 10.4 GM/dL (11.7-16.9); MCH 30.7 pg (25.7-33.7); MCHC 33.6 g/dl (32.0-35.9); MEAN CELL VOLUME 91.4 fl (80-96); MEAN PLT VOLUME 8.5 fl (7.5-11.1); PLATELET COUNT 222 10^3/uL (134-434); RBC 3.39 M/mm3 (4.00-5.60); RDW 15.7 % (11.9-15.9)
[2024-11-10 06:51] LABS: CALCIUM 8.8 mg/dL (8.5-10.1)
[2024-11-10 06:52] LABS: ALBUMIN 2.6 g/dl (3.4-5.0); BLOOD UREA NITROGEN 60.4 mg/dL (7-18); CO2 23 mmol/L (21-32); GLUCOSE,RANDOM 121 mg/dL (74-106); MAGNESIUM 2.6 mg/dL (1.8-2.4)
[2024-11-10 06:55] LABS: SGOT/AST 20 U/L (15-37); SGPT/ALT 19 U/L (13-61)
[2024-11-10 06:57] LABS: BILIRUBIN,TOTAL 0.5 mg/dL (0.2-1); TOT PROT 6.9 g/dl (6.4-8.2)
[2024-11-10 06:58] LABS: ALK PHOS 131 U/L (45-117)
[2024-11-10 07:04] LABS: ANION GAP 10 mmol/L (4-13); CREATININE 10.6 mg/dL (0.55-1.3); POTASSIUM 6.6 mmol/L (3.5-5.1)
[2024-11-10] MEDS ORDERED: DEXTROSE 50%-WATER 25 GM/50 ML DISP.SYRIN ONE (07:33)
[2024-11-10] MEDS: DEXTROSE 50%-WATER - 25 GM/50 ML VIAL IVPUSH ONE (07:41)
[2024-11-10] MEDS: INSULIN REGULAR HUMAN 100 UNITS/ML *VIAL IVPUSH ONE (07:41)
[2024-11-10 07:42] LABS: PHOSPHOROUS 8.8 mg/dL (2.5-4.9)
[2024-11-10] MEDS: CALCIUM GLUCONATE 10% - 1,000 MG/10 ML VIAL IVPUSH ONE (08:05)
[2024-11-10] MEDS ORDERED: SODIUM CHLORIDE 250 ML IV PRN (09:12)
[2024-11-10] MEDS ORDERED: EMPAGLIFLOZIN (JARDIANCE) 10 MG TABLET PO SCH (10:00)
[2024-11-10] MEDS ORDERED: CARVEDILOL 25 MG TABLET (FP) PO SCH (10:00)
[2024-11-10] MEDS ORDERED: ALBUTEROL SO4 2.5/IPRATROPIUM 0.5 INH SOL 3 ML VIAL.NEB. NEB PRN (12:01)
[2024-11-10] MEDS: NICARDIPINE 25 MG in DEXTROSE 5%-WATER - 240 ML IVPB SCH (15:50)
[2024-11-10] MEDS: COLLAGENASE CLOSTRIDIUM HIST. 30 GRAMS TUBE TP SCH (17:23)
[2024-11-10] MEDS: MEROPENEM-0.9% SODIUM CHLORIDE 1 GM/50 ML BAG IVPB ONE (17:23)
[2024-11-10] MEDS: SEVELAMER CARBONATE 800 MG TAB (FP) PO SCH (17:24)
[2024-11-10 18:32] LABS: POTASSIUM 3.5 mmol/L (3.5-5.1)
[2024-11-10 18:34] LABS: CALCIUM 8.4 mg/dL (8.5-10.1)
[2024-11-10 18:35] LABS: ALBUMIN 2.5 g/dl (3.4-5.0)
[2024-11-10 18:38] LABS: CREATININE 4.8 mg/dL (0.55-1.3)
[2024-11-10 18:39] LABS: BILIRUBIN,TOTAL 0.5 mg/dL (0.2-1); TOT PROT 6.9 g/dl (6.4-8.2)
[2024-11-10 18:55] LABS: BLOOD UREA NITROGEN 23.4 mg/dL (7-18)
[2024-11-10] MEDS: INSULIN ASPART SLIDING SCALE (NOVOLOG) 1 VIAL SQ SCH (21:51)
[2024-11-11] MEDS: INSULIN ASPART SLIDING SCALE (NOVOLOG) 1 VIAL SQ SCH (07:41)
[2024-11-11 07:55] LABS: EOS % 7.1 % (0-4.5); HEMATOCRIT 32.5 % (35.4-49); HEMOGLOBIN 10.3 GM/dL (11.7-16.9); LYMPH % 12.9 % (8-40); MCH 29.4 pg (25.7-33.7); MCHC 31.9 g/dl (32.0-35.9); MEAN CELL VOLUME 92.3 fl (80-96); MEAN PLT VOLUME 8.7 fl (7.5-11.1); MONO % 12.1 % (3.8-10.2); NEUT % 64.9 % (42.8-82.8); PLATELET COUNT 227 10^3/uL (134-434); RBC 3.52 M/mm3 (4.00-5.60); RDW 15.5 % (11.9-15.9); WHITE BLOOD COUNT 6.3 K/mm3 (4.0-10.0)
[2024-11-11 08:11] LABS: POTASSIUM 4.3 mmol/L (3.5-5.1)
[2024-11-11 08:18] LABS: ALBUMIN 2.5 g/dl (3.4-5.0); BLOOD UREA NITROGEN 31.8 mg/dL (7-18); CALCIUM 8.7 mg/dL (8.5-10.1); MAGNESIUM 2.2 mg/dL (1.8-2.4)
[2024-11-11 08:21] LABS: CREATININE 7.2 mg/dL (0.55-1.3)
[2024-11-11 08:22] LABS: BILIRUBIN,TOTAL 0.5 mg/dL (0.2-1); PHOSPHOROUS 6.7 mg/dL (2.5-4.9)
[2024-11-11 08:23] LABS: TOT PROT 6.8 g/dl (6.4-8.2)
[2024-11-11] MEDS: MEROPENEM-0.9% SODIUM CHLORIDE 1 GM/50 ML BAG IVPB SCH (09:31)
[2024-11-11] MEDS: ASPIRIN COATED 81 MG TABLET.EC PO SCH (09:31)
[2024-11-11] MEDS: PANTOPRAZOLE SODIUM 40 MG VIAL IVPUSH SCH (09:31)
[2024-11-11] MEDS ORDERED: ROSUVASTATIN CA 20 MG TABLET PO SCH (10:00)
[2024-11-11] MEDS: CARVEDILOL 25 MG TABLET (FP) PO ONE (14:58)
[2024-11-11] MEDS: FAMOTIDINE 20 MG TABLET PO ONE (16:49)
[2024-11-11] MEDS ORDERED: SODIUM CHLORIDE 250 ML IV PRN (20:53)
[2024-11-11] MEDS: CARVEDILOL 25 MG TABLET (FP) PO SCH (21:42)
[2024-11-11] MEDS: ROSUVASTATIN CA 20 MG TABLET NGT SCH (21:44)
[2024-11-11] MEDS: PREGABALIN 100 MG CAPSULE PO SCH (21:44)
[2024-11-12] MEDS: EMPAGLIFLOZIN (JARDIANCE) 10 MG TABLET PO SCH (06:08)
[2024-11-12 06:46] LABS: BASO % 1.8 % (0-2.0); EOS % 4.7 % (0-4.5); HEMATOCRIT 29.6 % (35.4-49); HEMOGLOBIN 9.7 GM/dL (11.7-16.9); MCH 29.8 pg (25.7-33.7); MCHC 32.9 g/dl (32.0-35.9); MEAN CELL VOLUME 90.6 fl (80-96); MEAN PLT VOLUME 8.4 fl (7.5-11.1); MONO % 13.3 % (3.8-10.2); NEUT % 68.2 % (42.8-82.8); PLATELET COUNT 225 10^3/uL (134-434); RBC 3.27 M/mm3 (4.00-5.60); RDW 15.4 % (11.9-15.9)
[2024-11-12 07:11] LABS: CHLORIDE 95 mmol/L (98-107); POTASSIUM 4.1 mmol/L (3.5-5.1); SODIUM 132 mmol/L (136-145)
[2024-11-12 07:15] LABS: CALCIUM 8.6 mg/dL (8.5-10.1)
[2024-11-12 07:16] LABS: ALBUMIN 2.5 g/dl (3.4-5.0); ANION GAP 10 mmol/L (4-13); BLOOD UREA NITROGEN 43.7 mg/dL (7-18); CO2 27 mmol/L (21-32); GLUCOSE,RANDOM 156 mg/dL (74-106); MAGNESIUM 2.3 mg/dL (1.8-2.4)
[2024-11-12 07:19] LABS: PHOSPHOROUS 8.4 mg/dL (2.5-4.9); SGOT/AST 13 U/L (15-37); SGPT/ALT 13 U/L (13-61)
[2024-11-12 07:20] LABS: BILIRUBIN,TOTAL 0.6 mg/dL (0.2-1); TOT PROT 6.8 g/dl (6.4-8.2)
[2024-11-12 07:21] LABS: ALK PHOS 121 U/L (45-117)
[2024-11-12 07:37] LABS: CREATININE 9.5 mg/dL (0.55-1.3)
[2024-11-12] MEDS: MAG HYDROX/AL HYDROX/SIMETH 30 ML UNIT-DOSE CUP PO PRN (18:33)
[2024-11-12] MEDS: ZOLPIDEM TARTRATE 5 MG TABLET PO ONE (23:38)
[2024-11-13 07:14] LABS: BASO % 2.5 % (0-2.0); EOS % 4.9 % (0-4.5); HEMOGLOBIN 9.7 GM/dL (11.7-16.9); LYMPH % 17.2 % (8-40); MCH 29.3 pg (25.7-33.7); MCHC 32.3 g/dl (32.0-35.9); MEAN CELL VOLUME 90.5 fl (80-96); MEAN PLT VOLUME 8.5 fl (7.5-11.1); NEUT % 62.4 % (42.8-82.8); PLATELET COUNT 240 10^3/uL (134-434); RBC 3.31 M/mm3 (4.00-5.60); RDW 15.3 % (11.9-15.9); WHITE BLOOD COUNT 6.6 K/mm3 (4.0-10.0)
[2024-11-13 07:33] LABS: CHLORIDE 96 mmol/L (98-107); POTASSIUM 3.9 mmol/L (3.5-5.1); SODIUM 133 mmol/L (136-145)
[2024-11-13 07:45] LABS: ALBUMIN 2.5 g/dl (3.4-5.0); ANION GAP 10 mmol/L (4-13); BLOOD UREA NITROGEN 33.1 mg/dL (7-18); CALCIUM 8.4 mg/dL (8.5-10.1); CO2 28 mmol/L (21-32); GLUCOSE,RANDOM 165 mg/dL (74-106); MAGNESIUM 2.1 mg/dL (1.8-2.4)
[2024-11-13 07:48] LABS: SGOT/AST 15 U/L (15-37); SGPT/ALT 9 U/L (13-61)
[2024-11-13 07:49] LABS: PHOSPHOROUS 6.5 mg/dL (2.5-4.9)
[2024-11-13 07:50] LABS: BILIRUBIN,TOTAL 0.5 mg/dL (0.2-1); TOT PROT 6.7 g/dl (6.4-8.2)
[2024-11-13 07:51] LABS: ALK PHOS 114 U/L (45-117)
[2024-11-13 08:04] LABS: CREATININE 8.1 mg/dL (0.55-1.3)
[2024-11-13] MEDS ORDERED: INSULIN ASPART SLIDING SCALE (NOVOLOG) 1 VIAL SQ ONE (16:53)
[2024-11-13] MEDS: ZOLPIDEM TARTRATE 5 MG TABLET PO ONE (21:26)
[2024-11-14 07:01] LABS: BASO % 1.9 % (0-2.0); EOS % 6.9 % (0-4.5); HEMATOCRIT 30.4 % (35.4-49); MCH 29.7 pg (25.7-33.7); MEAN CELL VOLUME 89.9 fl (80-96); MONO % 11.3 % (3.8-10.2); NEUT % 62.9 % (42.8-82.8); PLATELET COUNT 263 10^3/uL (134-434); RBC 3.38 M/mm3 (4.00-5.60); RDW 15.4 % (11.9-15.9); WHITE BLOOD COUNT 7.5 K/mm3 (4.0-10.0)
[2024-11-14 07:06] LABS: CHLORIDE 94 mmol/L (98-107); POTASSIUM 4.5 mmol/L (3.5-5.1); SODIUM 133 mmol/L (136-145)
[2024-11-14 07:08] LABS: ALBUMIN 2.7 g/dl (3.4-5.0); CALCIUM 8.5 mg/dL (8.5-10.1)
[2024-11-14 07:09] LABS: ANION GAP 12 mmol/L (4-13); BLOOD UREA NITROGEN 46.3 mg/dL (7-18); CO2 27 mmol/L (21-32); GLUCOSE,RANDOM 166 mg/dL (74-106); MAGNESIUM 2.3 mg/dL (1.8-2.4)
[2024-11-14 07:11] LABS: SGPT/ALT 9 U/L (13-61)
[2024-11-14 07:12] LABS: PHOSPHOROUS 7.3 mg/dL (2.5-4.9); SGOT/AST 14 U/L (15-37)
[2024-11-14 07:13] LABS: BILIRUBIN,TOTAL 0.5 mg/dL (0.2-1); TOT PROT 7.3 g/dl (6.4-8.2)
[2024-11-14 07:14] LABS: ALK PHOS 121 U/L (45-117)
[2024-11-14] MEDS ORDERED: SODIUM CHLORIDE 250 ML IV PRN (10:41)
[2024-11-14] MEDS ORDERED: COLLAGENASE CLOSTRIDIUM HIST. 30 GRAMS TUBE TP SCH (11:54)
[2024-11-14] MEDS: HEPARIN NA (PORCINE) 5,000 UNITS/ML 1ML VIAL SQ SCH (13:05)
[2024-11-15] MEDS: MELATONIN 5 MG TABLETS PO ONE (03:02)
[2024-11-15] MEDS: ACETAMINOPHEN 325 MG TABLET (FP) PO PRN (03:02)
[2024-11-15] MEDS ORDERED: INSULIN ASPART SLIDING SCALE (NOVOLOG) 1 VIAL SQ ONE (07:47)
[2024-11-15] MEDS ORDERED: INSULIN (LEVEMIR) 100 UNITS/ML UNITS SQ ONE (07:47)
[2024-11-15] MEDS ORDERED: SODIUM CHLORIDE 250 ML IV PRN ×3 (08:33→10:18)
[2024-11-15 08:37] LABS: HEMATOCRIT 31.2 % (35.4-49); HEMOGLOBIN 10.2 GM/dL (11.7-16.9); MCH 29.7 pg (25.7-33.7); MCHC 32.8 g/dl (32.0-35.9); MEAN CELL VOLUME 90.3 fl (80-96); MEAN PLT VOLUME 8.2 fl (7.5-11.1); PLATELET COUNT 270 10^3/uL (134-434); RBC 3.45 M/mm3 (4.00-5.60); RDW 15.4 % (11.9-15.9); WHITE BLOOD COUNT 7.6 K/mm3 (4.0-10.0)
[2024-11-15 08:53] LABS: CHLORIDE 94 mmol/L (98-107); POTASSIUM 5.1 mmol/L (3.5-5.1); SODIUM 130 mmol/L (136-145)
[2024-11-15 08:56] LABS: ANION GAP 13 mmol/L (4-13); BLOOD UREA NITROGEN 58.3 mg/dL (7-18); CALCIUM 8.8 mg/dL (8.5-10.1); CO2 24 mmol/L (21-32); GLUCOSE,RANDOM 225 mg/dL (74-106); MAGNESIUM 2.4 mg/dL (1.8-2.4)
[2024-11-15 08:59] LABS: CREATININE 12.1 mg/dL (0.55-1.3); PHOSPHOROUS 8.8 mg/dL (2.5-4.9); SGOT/AST 17 U/L (15-37); SGPT/ALT 10 U/L (13-61)
[2024-11-15 09:01] LABS: BILIRUBIN,TOTAL 0.5 mg/dL (0.2-1); TOT PROT 7.9 g/dl (6.4-8.2)
[2024-11-15 09:02] LABS: ALK PHOS 136 U/L (45-117)
[2024-11-15] MEDS ORDERED: MAG HYDROX/AL HYDROX/SIMETH 30 ML UNIT-DOSE CUP PO PRN (09:11)
[2024-11-15] MEDS: EPOETIN ALFA-EPBX 4,000 UNIT/ML VIAL IVPUSH ONE ×2 (09:54→12:21)
[2024-11-15 10:51] VITALS: BMI 31.8
[2024-11-15] MEDS: PREGABALIN 100 MG CAPSULE PO SCH (13:41)
[2024-11-15] MEDS: CARVEDILOL 25 MG TABLET (FP) PO SCH (13:41)
[2024-11-15] MEDS: HEPARIN NA (PORCINE) 5,000 UNITS/ML 1ML VIAL SQ SCH (13:42)
[2024-11-15] MEDS: ASPIRIN COATED 81 MG TABLET.EC PO SCH (13:43)
[2024-11-15] MEDS: MEROPENEM-0.9% SODIUM CHLORIDE 1 GM/50 ML BAG IVPB SCH (13:43)
[2024-11-15] MEDS: SEVELAMER CARBONATE 800 MG TAB (FP) PO SCH (13:46)
[2024-11-15] MEDS: INSULIN ASPART SLIDING SCALE (NOVOLOG) 1 VIAL SQ SCH (13:52)
[2024-11-15] MEDS: LOSARTAN POTASSIUM 25 MG TABLET PO SCH (14:12)
[2024-11-15] MEDS: hydrALAZINE HCL 25 MG TABLET (FP) PO SCH (14:12)
[2024-11-15] MEDS: COLLAGENASE CLOSTRIDIUM HIST. 30 GRAMS TUBE TP SCH (15:45)
[2024-11-15] MEDS: ROSUVASTATIN CA 10 MG TABLET NGT SCH (21:35)
[2024-11-16] MEDS: MELATONIN 5 MG TABLETS PO ONE (00:01)
[2024-11-16] MEDS: EMPAGLIFLOZIN (JARDIANCE) 10 MG TABLET PO SCH (06:25)
[2024-11-16] MEDS ORDERED: INSULIN ASPART SLIDING SCALE (NOVOLOG) 1 VIAL SQ ONE (07:02)
[2024-11-16] MEDS ORDERED: INSULIN (LEVEMIR) 100 UNITS/ML UNITS SQ ONE (07:02)
[2024-11-16] MEDS: VITAMIN B COMP W-C 1 EA TABLET (NEPHRO-VITE) PO SCH (09:25)
[2024-11-16 16:41] VITALS: RESP 18
[2024-11-16 19:22] VITALS: BP 161/115; PULSE 66; TEMP 98
== END 2024-11-16 21:05 | disposition home or self-care (01) | DRG 299 ==
LOC: JASU-SURG 04:28 → JICU 10:51 → J4S 11-14 18:43
PROVIDERS: ADMIT Surgery; ATTEND Internal Medicine
PROC: 5A12012 Performance of Cardiac Output, Single, Manual (ICD-10-PCS; 2024-11-09)
PROC: 5A1945Z Respiratory Ventilation, 24-96 Consecutive Hours (ICD-10-PCS; 2024-11-09)
PROC: 0BH17EZ Insertion of Endotracheal Airway into Trachea, Via Natural or Artificial Opening (ICD-10-PCS; 2024-11-09)
PROC: B41DYZZ Fluoroscopy of Aorta and Bilateral Lower Extremity Arteries using Other Contrast (ICD-10-PCS; principal; 2024-11-09 09:00)
PROC: 5A1D70Z Performance of Urinary Filtration, Intermittent, Less than 6 Hours Per Day (ICD-10-PCS; 2024-11-16)
DX: E11.51 Type 2 diabetes mellitus with diabetic peripheral angiopathy without gangrene (principal); G93.41 Metabolic encephalopathy; N18.6 End stage renal disease; J96.00 Acute respiratory failure, unspecified whether with hypoxia or hypercapnia; I97.711 Intraoperative cardiac arrest during other surgery; I50.32 Chronic diastolic (congestive) heart failure; I13.2 Hypertensive heart and chronic kidney disease with heart failure and with stage 5 chronic kidney disease, or end stage renal disease; M86.9 Osteomyelitis, unspecified; I31.39 Other pericardial effusion (noninflammatory); I70.202 Unspecified atherosclerosis of native arteries of extremities, left leg; E11.42 Type 2 diabetes mellitus with diabetic polyneuropathy; E11.621 Type 2 diabetes mellitus with foot ulcer; E11.22 Type 2 diabetes mellitus with diabetic chronic kidney disease; L97.509 Non-pressure chronic ulcer of other part of unspecified foot with unspecified severity; E78.5 Hyperlipidemia, unspecified; I25.10 Atherosclerotic heart disease of native coronary artery without angina pectoris; I49.3 Ventricular premature depolarization; Z99.2 Dependence on renal dialysis; I16.0 Hypertensive urgency; E87.5 Hyperkalemia; K21.9 Gastro-esophageal reflux disease without esophagitis
CPT/HCPCS: 0241U-QW; 36415; 36600; 70450-TC; 71045-TC-FY; 76000-TC-FY; 80048; 80053; 82010; 82803; 82962; 83735; 83880; 84100; 84132; 84484; 85025; 85027; 85384; 85610; 85730; 87040; 87481; 93005; 93010; 93306-TC; 94002; 94640; 97116-GP; 97161-GP; C1769; C1894; J1644; Q5106

== ENCOUNTER 2025-06-20 11:59 | Day surgery (SDC) | payer OTHER ==
[2025-06-20] MEDS ORDERED: HEPARIN NA (PORCINE) 5,000 UNITS/ML 1ML VIAL ONE (12:54)
[2025-06-20 13:02] LABS: ABSOLUTE IMMATURE GRANULOCYTES 0.02 x10^3/uL (0.0-0.031); BASOPHILS # 0.11 x10^3/uL (0.01-0.08); EOSINOPHIL % 4.5 % (0.8-7.0); EOSINOPHILS # 0.26 x10^3/uL (0.04-0.54); MCHC 30.4 g/dl (32.3-36.5); MEAN CELL VOLUME 90.0 fl (79.0-92.2); MEAN PLT VOLUME 10.0 fl (9.4-12.4); MONOCYTE # 0.74 x10^3/uL (0.30-0.82); MONOCYTE % 12.8 % (5.3-12.2); RDW 15.5 % (12.2-16.1)
[2025-06-20 13:21] LABS: CO2 32 mmol/L (21-32); INR 1.19 (0.83-1.09); PROTHROMBIN TIME (PATIENT) 13.0 SEC (9.7-13.0)
[2025-06-20 13:22] LABS: GLUCOSE,RANDOM 165 mg/dL (74-106)
[2025-06-20 13:25] LABS: SGOT/AST 15 U/L (15-37); SGPT/ALT 19 U/L (13-61)
[2025-06-20 13:26] LABS: TOT PROT 8.0 g/dl (6.4-8.2)
[2025-06-20 13:27] LABS: ALK PHOS 126 U/L (45-117); CREATININE 7.9 mg/dL (0.55-1.3)
[2025-06-20 13:35] VITALS: BP 161/92; PULSE 83; RESP 15
== END 2025-06-20 13:47 | disposition home or self-care (01) ==
LOC: JRADIR 11:59
PROVIDERS: ATTEND Surgery
PROC: 05763DZ Dilation of Left Subclavian Vein with Intraluminal Device, Percutaneous Approach (ICD-10-PCS; principal; 2025-06-20)
PROC: 05743ZZ Dilation of Left Innominate Vein, Percutaneous Approach (ICD-10-PCS; 2025-06-20)
DX: T85.858A Stenosis due to other internal prosthetic devices, implants and grafts, initial encounter (principal); I12.0 Hypertensive chronic kidney disease with stage 5 chronic kidney disease or end stage renal disease; E11.22 Type 2 diabetes mellitus with diabetic chronic kidney disease; N18.6 End stage renal disease; Z79.4 Long term (current) use of insulin; Z99.2 Dependence on renal dialysis
CPT/HCPCS: 36415; 37248; 76000-TC-FY; 80053; 85025; 85610; C1725; C1769; C1894